=== PATIENT | female | born 1935 | race American Indian/Alaskan Native ===

== ENCOUNTER 2016-04-10 18:08 | Inpatient (IN) | payer MEDICARE, MEDICAID ==
[2016-04-10 18:09] VITALS: PULSE 75; BMI 44.2
--- NOTE | 2016-04-10 18:43 | C.PDOC ---
History Of Present Illness 80 y/o F from [place] sent for fever, tachycardia and increasing confusion. Patient denies pain, dyspnea, dysuria, or any other complaint. Time Seen by Provider: 04/10/16 18:41 Chief Complaint (Nursing): Fever Past Medical History Vital Signs: Last Vital Signs Temp 101.2 F H 04/10/16 18:40 Pulse 127 H 04/10/16 18:40 Resp 22 04/10/16 18:40 BP 126/68 04/10/16 18:40 Pulse Ox 99 04/10/16 18:40 - Medical History PMH: Arthritis, CHF, COPD, HTN, Pneumonia, Chronic Kidney Disease, Seizures ( LAST SEIZURE 2013) Denies: Depression Comment Only: Multiple Sclerosis (? in previous triage) Surgical History: Tonsillectomy - [facility] Procedures ASSISTANCE WITH RESPIRATORY VENTILATION, >96 HRS, CPAP (05/18/15) INJECT STEROID (12/22/13) INJECTION INTO JOINT (12/22/13) INSERTION OF ENDOTRACHEAL AIRWAY INTO TRACHEA, VIA OPENING (02/24/16) INTRODUCE OF OTH THERAP SUBST INTO RESP TRACT, VIA OPENING (05/18/15) MAGNETIC RESONANCE IMAGING OF BRAIN AND BRAIN STEM (09/29/13) OCCUPATIONAL THERAPY (10/05/13) PHYSICAL THERAPY NEC (10/05/13) RESPIRATORY VENTILATION, GREATER THAN 96 CONSECUTIVE HOURS (02/24/16) Family History: States: No Known Family Hx - Social History Hx Tobacco Use: No Hx Alcohol Use: No Hx Substance Use: No - Immunization History Hx Tetanus Toxoid Vaccination: No Hx Influenza Vaccination: No Hx Pneumococcal Vaccination: No Review Of Systems Except As Marked, All Systems Reviewed And Found Negative. Cardiovascular: Negative for: Chest Pain Respiratory: Negative for: Shortness of Breath Physical Exam - Physical Exam Additional Physical Exam Comments: Constitutional: No acute distress. Head: Normocephalic. Atraumatic. Eyes: PERRL. EOMI ENT: Moist mucous membranes. Neck: Supple. Cardiovascular: Tachycardic rate. Radial pulses 2+ bilaterally. Chest: No tenderness. Respiratory: Clear to auscultation bilaterally. GI: Soft. Nontender. Obese. Back: No CVA tenderness. No midline tenderness. Musculoskeletal: No tenderness or swelling of extremities. Skin: No rash. Neurologic: Alert, no focal deficit. Oriented x 3. ED Course And Treatment - Laboratory Results Result Diagrams: 04/10/16 19:04 04/10/16 19:04 Medical Decision Making Medical Decision Making: Will send sepsis screen. Will hold IVF as patient has normal BP and history of CHF. EKG Sinus tach at 129 bpm, no ST elevations or T wave inversions. CXR no infiltrate. Positive UTI on UA. Patient without lactic acidosis or leukocytosis. No severe sepsis. Dr. Mccarty accepts patient to medical service. Disposition Discussed With : Perla Mccarty - Disposition Disposition: HOSPITALIZED Disposition Time: 20:36 Condition: GUARDED - Clinical Impression Clinical Impression: UTI (urinary tract infection), Sepsis
[2016-04-10 19:11] LABS: VENOUS BLOOD GAS BASE EXCESS 7.9 mmol/L (0.0-2.0); VENOUS BLOOD GAS PCO2 65 mmHg (40-60); VENOUS BLOOD PH 7.35 (7.32-7.43)
[2016-04-10 19:16] LABS: INR 1.2
[2016-04-10 19:18] LABS: BASO % 0.3 % (0.0-2.0); EOS % 0.9 % (0.0-4.0); HEMATOCRIT 34.5 % (34.0-47.0); LYMPH # 0.3 K/uL (1.0-4.3); LYMPH % 8.3 % (20.0-40.0); MEAN CORPUSCULAR HEMOGLOBIN 25.4 pg (27.0-31.0); MEAN PLATELET VOLUME 9.2 fL (7.2-11.7); MONO # 0.2 K/uL (0.0-0.8); MONO % 5.7 % (0.0-10.0); NRBC % 0.1 % (0.0-2.0); RED CELL DISTRIBUTION WIDTH 18.5 % (11.5-14.5); WHITE BLOOD COUNT 3.9 K/uL (4.8-10.8)
[2016-04-10 19:20] LABS: MEAN CELL VOLUME 79.6 fL (81.0-99.0); PLATELET COUNT 103 K/uL (130-400)
[2016-04-10 19:22] LABS: CHLORIDE 100 mmol/L (98-107)
[2016-04-10 19:23] LABS: POTASSIUM 4.1 mmol/L (3.6-5.2); SODIUM 143 mmol/L (132-148)
[2016-04-10 19:25] LABS: ALB/GLOB RATIO 0.8 (1.0-2.1); ALKALINE PHOSPHATASE 122 U/L (38-126); AST/SGOT 33 U/L (14-36); BILIRUBIN,TOTAL 1.2 mg/dL (0.2-1.3); BLOOD UREA NITROGEN 20 mg/dL (7-17); CARBON DIOXIDE 35 mmol/L (22-30); GFR AFRICAN-AMERICAN 48
[2016-04-10 19:26] LABS: ALT/SGPT 18 U/L (9-52); CALCIUM 8.3 mg/dl (8.6-10.4); GLUCOSE,RANDOM 167 mg/dL (65-105); MAGNESIUM 1.8 mg/dL (1.6-2.3)
[2016-04-10 19:45] LABS: NEUTROPHIL 80 % (50-75); TOTAL CELLS COUNTED 100
[2016-04-10 19:48] LABS: LARGE PLATELETS PRESENT
[2016-04-10 20:32] LABS: RBC URINE 29 /hpf (0-3); TRANSITIONAL EPITHIAL 1 /hpf (0-3); URINE BACTERIA MANY (<OCC); URINE BILIRUBIN NEGATIVE (NEGATIVE); URINE BLOOD 2+ (NEGATIVE); URINE COLOR Yellow (YELLOW); URINE GLUCOSE (UA) NORMAL (Normal); URINE KETONE NEGATIVE (NEGATIVE); URINE LEUKOCYTE ESTERASE 3+ Leu/uL (Negative); URINE PROTEIN 2+ mg/dL (NEGATIVE); WBC URINE 129 /hpf (0-5)
[2016-04-10] MEDS ORDERED: cefTRIAXone IV 1 gm in Dextros 50 ML IVPB STA (20:35)
[2016-04-10] MEDS ORDERED: cefTRIAXone IV 1 gm in Dextros 50 ML IVPB ONE (20:54)
--- NOTE | 2016-04-10 22:16 | CP.PCM.HP ---
History of Present Illness - History of Present Illness History of Present Illness: pt transfered [place] for fever discomfort urination ams has uti Present on Admission - Present on Admission Any Indicators Present on Admission: No Review of Systems - Review of Systems Systems not reviewed;Unavailable: Acuity of Condition - Constitutional Constitutional: Anorexia, Daytime Sleepiness, Lethargy, Weakness - EENT Eyes: As Per HPI Ears: As Per HPI Nose/Mouth/Throat: As Per HPI - Breasts Breasts: As Per HPI - Cardiovascular Cardiovascular: As Per HPI - Respiratory Respiratory: As Per HPI - Gastrointestinal Gastrointestinal: As Per HPI - Genitourinary Genitourinary: Change in Urinary Stream, Difficulty Urinating, Urinary Frequency - Reproductive: Female Reproductive:Female: As Per HPI - Menstruation Menstruation: As Per HPI, Post Menopausal - Musculoskeletal Musculoskeletal: As Per HPI, Arthralgias - Integumentary Integumentary: As Per HPI - Neurological Neurological: Confusion, Memory Loss - Psychiatric Psychiatric: Depression - Endocrine Endocrine: Cold Intolorance Past Patient History - Infectious Disease Hx of Infectious Diseases: None - Tetanus Immunizations Tetanus Immunization: Unknown - Past Medical History & Family History Past Medical History?: Yes - Past Social History Smoking Status: Former Smoker - CARDIAC Hx Congestive Heart Failure: Yes Hx Hypertension: Yes - PULMONARY Hx Chronic Obstructive Pulmonary Disease (COPD): Yes Hx Pneumonia: Yes - NEUROLOGICAL Hx Multiple Sclerosis: (? in previous triage) Hx Seizures: Yes (LAST SEIZURE 2013) - HEENT Hx HEENT Problems: Yes (eyeglasses) Hx Cataracts: Yes (LEFT EYE) - RENAL Hx Chronic Kidney Disease: Yes - ENDOCRINE/METABOLIC Hx Endocrine Disorders: No - HEMATOLOGICAL/ONCOLOGICAL Hx Blood Disorders: No - INTEGUMENTARY Hx Dermatological Problems: Yes (HEALED SACRAL STAGE ONE DECUBITI) Other/Comment: healed sacral wound and healed right hip wound, right 5th toe darkened with hard callous - MUSCULOSKELETAL/RHEUMATOLOGICAL Hx Arthritis: Yes - GASTROINTESTINAL Hx Gastrointestinal Disorders: Yes (OBESITY) - GENITOURINARY/GYNECOLOGICAL Hx Genitourinary Disorders: Yes (HYSTERECTOMY) Hx Incontinence: Yes Hx Urinary Tract Infection: Yes - PSYCHIATRIC Hx Depression: No Hx Substance Use: No - SURGICAL HISTORY Hx Tonsillectomy: Yes - ANESTHESIA Hx Anesthesia: Yes Hx Anesthesia Reactions: No Meds Allergies/Adverse Reactions: Allergies Allergy/AdvReac Type Severity Reaction Status Date / Time No Known Allergies Allergy Verified 04/10/16 18:25 Physical Exam - Constitutional Appears: Non-toxic, Confused - Head Exam Head Exam: ATRAUMATIC - Eye Exam Eye Exam: Normal appearance Pupil Exam: PERRL - ENT Exam ENT Exam: Mucous Membranes Moist - Neck Exam Neck exam: Positive for: Full Rom - Respiratory Exam Respiratory Exam: Decreased Breath Sounds - Cardiovascular Exam Cardiovascular Exam: REGULAR RHYTHM - GI/Abdominal Exam GI & Abdominal Exam: Normal Bowel Sounds - Rectal Exam Rectal Exam: NORMAL INSPECTION - Extremities Exam Extremities exam: Positive for: normal inspection - Back Exam Back exam: NORMAL INSPECTION - Neurological Exam Neurological exam: Alert Additional comments: lethargic sleepy - Psychiatric Exam Psychiatric exam: Flat Affect - Skin Skin Exam: Normal Color Results - Vital Signs Recent Vital Signs: Last Vital Signs Temp 101.2 F H 04/10/16 18:40 Pulse 127 H 04/10/16 18:40 Resp 22 04/10/16 18:40 BP 126/68 04/10/16 18:40 Pulse Ox 99 04/10/16 18:40 - Labs Result Diagrams: 04/10/16 19:04 04/10/16 19:04 Assessment & Plan - Assessment and Plan (Free Text) Assessment: ac uti ams dm ms Plan: as per orders
[2016-04-10] MEDS ORDERED: Magnesium Hydroxide Susp 30 ml UD PO PRN (23:11)
[2016-04-10] MEDS ORDERED: ANTACID ANTI GAS PO PRN (23:11)
--- NOTE | 2016-04-11 08:15 | RAD ---
HISTORY: fever COMPARISON: 03/06/2016 FINDINGS: LUNGS: Worsening airspace opacifications throughout the left diane thorax with associated moderate to large left pleural effusion. Venous congestion in the right diane thorax with right hilar prominence. PLEURA: As above. CARDIOVASCULAR: Cardiomegaly. OSSEOUS STRUCTURES: No significant abnormalities. VISUALIZED UPPER ABDOMEN: Normal. OTHER FINDINGS: None. IMPRESSION: Worsening airspace opacifications throughout the left diane thorax with associated moderate to large left pleural effusion. Venous congestion in the right diane thorax with right hilar prominence.
[2016-04-11] MEDS ORDERED: Alum-Mag Hydrox-Simethicone Susp (30 mL) PO PRN (08:47)
[2016-04-11] MEDS: Pantoprazole 40 mg EC Tab PO SCH (09:57)
[2016-04-11] MEDS: Meropenem 1 GM in Sodium Chloride 0.9% 100 ML IVPB SCH ×2 (09:57→21:16)
[2016-04-11] MEDS: Enoxaparin 40 mg Syringe SC SCH (09:57)
[2016-04-11] MEDS ORDERED: cefTRIAXone IV 1 gm in Dextros 1 GM in Dextrose 5% In Water 50 ML IVPB SCH (10:00)
[2016-04-11] MEDS ORDERED: Albuterol-Ipratrop 3 mg / 0.5 (3 ml) UD IH SCH (10:00)
--- NOTE | 2016-04-11 10:59 | CP.PCM.PN ---
Subjective - Date & Time of Evaluation Date of Evaluation: 04/11/16 Time of Evaluation: 10:56 - Subjective Subjective: doesnot talk eating very litle deosnt move temp last night 103 vss lung cleare ht s1s2 abd soft tender l l no oeadeama Objective - Vital Signs/Intake and Output Vital Signs (last 24 hours): Temp Pulse Resp BP Pulse Ox 103.2 F H 147 H 20 120/67 95 04/11/16 06:50 04/11/16 06:50 04/11/16 06:50 04/11/16 09:57 04/11/16 06:50 Intake and Output: 04/11/16 04/11/16 06:59 18:59 Intake Total 600 Output Total 500 Balance 100 - Medications Medications: Current Medications Acetaminophen (Tylenol 650 Mg Supp) 650 mg NV Q4 PRN PRN Reason: Fever >100.4 F Last Admin: 04/11/16 05:43 Dose: 650 mg Acetaminophen (Tylenol 325mg Tab) 2 mg PO Q4 PRN PRN Reason: Temperature Al Hydrox/Mg Hydrox/Simethicone (Maalox Plus 30 Ml) 30 ml PO Q4H PRN PRN Reason: GI distress Albuterol/Ipratropium (Duoneb 3 Mg/0.5 Mg (3 Ml) Ud) 3 ml IH TID [facility] Ascorbic Acid (Vitamin C 500 Mg Tab) 500 mg PO DAILY [facility] Last Admin: 04/11/16 09:56 Dose: 500 mg Aspirin (Ecotrin) 81 mg PO DAILY [facility] Last Admin: 04/11/16 09:56 Dose: 81 mg Carvedilol (Coreg) 3.125 mg PO BID [facility] Last Admin: 04/11/16 09:56 Dose: 3.125 mg Enoxaparin Sodium (Lovenox) 40 mg SC DAILY [facility] Last Admin: 04/11/16 09:57 Dose: 40 mg Fluconazole (Diflucan) 100 mg PO DAILY [facility] Furosemide (Lasix) 40 mg PO MWF [facility] Last Admin: 04/11/16 09:57 Dose: 40 mg Vancomycin HCl 1 gm/ Sodium (Chloride) 250 mls @ 166.7 mls/hr IVPB Q24H [facility] Meropenem 1 gm/ Sodium (Chloride) 100 mls @ 100 mls/hr IVPB Q12H [facility] Last Admin: 04/11/16 09:57 Dose: 100 mls/hr Levetiracetam (Keppra) 500 mg PO BID [facility] Last Admin: 04/11/16 09:56 Dose: 500 mg Loperamide HCl (Imodium) 2 mg PO PRN PRN PRN Reason: Diarrhea Magnesium Hydroxide (Milk Of Magnesia) 30 ml PO HS PRN PRN Reason: Constipation Pantoprazole Sodium (Protonix Ec Tab) 40 mg PO DAILY [facility] Last Admin: 04/11/16 09:57 Dose: 40 mg Prochlorperazine (Compazine Rectal Supp) 25 mg RC Q12H PRN PRN Reason: Nausea/Vomiting - Labs Labs: PT 13.3 SECONDS (9.7-12.2) H 04/10/16 19:04 INR 1.2 04/10/16 19:04 APTT 27 SECONDS (21-34) 04/10/16 19:04 Assessment and Plan - Assessment and Plan (Free Text) Assessment: ac uti ac ams ms artifiscia mitral valve Plan: id and neuro consult
--- NOTE | 2016-04-11 13:17 | CT ---
PROCEDURE: CT HEAD WITHOUT CONTRAST. HISTORY: AMS COMPARISON: 02/27/2016 TECHNIQUE: Axial computed tomography images were obtained through the head/brain without intravenous contrast. Radiation dose: Total exam DLP = 637.99 mGy-cm. FINDINGS: HEMORRHAGE: No intracranial hemorrhage. BRAIN: No mass effect or edema. Mild diffuse age-appropriate cerebral atrophy. Mild chronic periventricular microvascular white matter ischemic change. No evidence of acute infarct. VENTRICLES: Unremarkable. No hydrocephalus. CALVARIUM: Unremarkable. PARANASAL SINUSES: Mild chronic frontal, sphenoid and left maxillary sinusitis. MASTOID AIR CELLS: Bilateral mastoid effusions. Right mastoid effusion is new since examination of 02/27/2016. Probable fluid within middle ear cavity bilaterally. Nonspecific. Congenitally underdeveloped right mastoid air cells. OTHER FINDINGS: None. IMPRESSION: No intracranial mass, hemorrhage or evidence of acute infarct. Age-appropriate involutional changes. Bilateral nonspecific mastoid effusion. Right mastoid effusion is new since 02/27/2016. Probable fluid within middle ear cavity bilaterally. Again, this is probably new on the right side since prior examination but a stable finding on the left side. Please correlate with exam.
--- NOTE | 2016-04-12 02:10 | CP.PCM.CON ---
History of Present Illness - History of Present Illness History of Present Illness: Chief Complaint: Fever, H/O Seizures and is on Keppra 500 mg Q 12 Hours. 80 y/o F from [place] sent for fever, tachycardia and increasing confusion. Patient denies pain, dyspnea, dysuria, or any other complaint. She has UTI and Slightly low Platelets count at 102. Past Medical History Vital Signs: Last Vital Signs Temp 101.2 F H 04/10/16 18:40 Pulse 127 H 04/10/16 18:40 Resp 22 04/10/16 18:40 BP 126/68 04/10/16 18:40 Pulse Ox 99 04/10/16 18:40 - Medical History PMH: Arthritis, CHF, COPD, HTN, Pneumonia, Chronic Kidney Disease, Seizures ( LAST SEIZURE 2013) Denies: Depression Comment Only: Multiple Sclerosis (? in previous triage) Surgical History: Tonsillectomy - [facility] Procedures ASSISTANCE WITH RESPIRATORY VENTILATION, >96 HRS, CPAP (05/18/15) INJECT STEROID (12/22/13) INJECTION INTO JOINT (12/22/13) INSERTION OF ENDOTRACHEAL AIRWAY INTO TRACHEA, VIA OPENING (02/24/16) INTRODUCE OF OTH THERAP SUBST INTO RESP TRACT, VIA OPENING (05/18/15) MAGNETIC RESONANCE IMAGING OF BRAIN AND BRAIN STEM (09/29/13) OCCUPATIONAL THERAPY (10/05/13) PHYSICAL THERAPY NEC (10/05/13) RESPIRATORY VENTILATION, GREATER THAN 96 CONSECUTIVE HOURS (02/24/16) Family History: States: No Known Family Hx - Social History Hx Tobacco Use: No Hx Alcohol Use: No Hx Substance Use: No - Immunization History Hx Tetanus Toxoid Vaccination: No Hx Influenza Vaccination: No Hx Pneumococcal Vaccination: No Review Of Systems Except As Marked, All Systems Reviewed And Found Negative. Cardiovascular: Negative for: Chest Pain Respiratory: Negative for: Shortness of Breath Medical Decision Making Medical Decision Making: Will send sepsis screen. Will hold IVF as patient has normal BP and history of CHF. EKG Sinus tach at 129 bpm, no ST elevations or T wave inversions. CXR no infiltrate. Positive UTI on UA. Patient without lactic acidosis or leukocytosis. No severe sepsis. Dr. Mccarty accepts patient to medical service. Clinical Impression: UTI (urinary tract infection), Sepsis IMPRESSION of CT Brain: No intracranial mass, hemorrhage or evidence of acute infarct. Age-appropriate involutional changes. Bilateral nonspecific mastoid effusion. Right mastoid effusion is new since 02/27/2016. Probable fluid within middle ear cavity bilaterally. Again, this is probably new on the right side since prior examination but a stable finding on the left side. Please correlate with exam. Past Patient History - Infectious Disease Hx of Infectious Diseases: None - Tetanus Immunizations Tetanus Immunization: Unknown - Past Medical History & Family History Past Medical History?: Yes - Past Social History Smoking Status: Never Smoked - CARDIAC Hx Cardiac Disorders: Yes Hx Congestive Heart Failure: Yes Hx Hypertension: Yes - PULMONARY Hx Chronic Obstructive Pulmonary Disease (COPD): Yes - NEUROLOGICAL Hx Multiple Sclerosis: (? in previous triage) Hx Seizures: Yes (LAST SEIZURE 2013) - HEENT Hx HEENT Problems: Yes (eyeglasses) Hx Cataracts: Yes (LEFT EYE) - RENAL Hx Chronic Kidney Disease: Yes - ENDOCRINE/METABOLIC Hx Endocrine Disorders: No - HEMATOLOGICAL/ONCOLOGICAL Hx Blood Disorders: No - INTEGUMENTARY Hx Dermatological Problems: Yes (HEALED SACRAL STAGE ONE DECUBITI) Other/Comment: healed sacral wound and healed right hip wound, right 5th toe darkened with hard callous - MUSCULOSKELETAL/RHEUMATOLOGICAL Hx Arthritis: Yes - GASTROINTESTINAL Hx Gastrointestinal Disorders: Yes (OBESITY) - GENITOURINARY/GYNECOLOGICAL Hx Genitourinary Disorders: Yes (HYSTERECTOMY) Hx Incontinence: Yes Hx Urinary Tract Infection: Yes - PSYCHIATRIC Hx Substance Use: No - SURGICAL HISTORY Hx Tonsillectomy: Yes - ANESTHESIA Hx Anesthesia: Yes Hx Anesthesia Reactions: No Hx Malignant Hyperthermia: No Has any member of the family had a problem w/ anesthesia?: Yes Meds Allergies/Adverse Reactions: Allergies Allergy/AdvReac Type Severity Reaction Status Date / Time No Known Allergies Allergy Verified 04/10/16 18:25 - Medications Medications: Current Medications Acetaminophen (Tylenol 650 Mg Supp) 650 mg ID Q4 PRN PRN Reason: Fever >100.4 F Last Admin: 04/11/16 05:43 Dose: 650 mg Acetaminophen (Tylenol 325mg Tab) 2 mg PO Q4 PRN PRN Reason: Temperature Al Hydrox/Mg Hydrox/Simethicone (Maalox Plus 30 Ml) 30 ml PO Q4H PRN PRN Reason: GI distress Albuterol/Ipratropium (Duoneb 3 Mg/0.5 Mg (3 Ml) Ud) 3 ml IH RTID [facility] Ascorbic Acid (Vitamin C 500 Mg Tab) 500 mg PO DAILY [facility] Last Admin: 04/11/16 09:56 Dose: 500 mg Aspirin (Ecotrin) 81 mg PO DAILY [facility] Last Admin: 04/11/16 09:56 Dose: 81 mg Carvedilol (Coreg) 3.125 mg PO BID [facility] Last Admin: 04/11/16 18:25 Dose: 3.125 mg Enoxaparin Sodium (Lovenox) 40 mg SC DAILY [facility] Last Admin: 04/11/16 09:57 Dose: 40 mg Fluconazole (Diflucan) 100 mg PO DAILY [facility] Last Admin: 04/11/16 10:19 Dose: 100 mg Furosemide (Lasix) 40 mg PO MWF [facility] Last Admin: 04/11/16 09:57 Dose: 40 mg Vancomycin HCl 1 gm/ Sodium (Chloride) 250 mls @ 166.7 mls/hr IVPB Q24H [facility] Last Admin: 04/11/16 11:24 Dose: 166.7 mls/hr Meropenem 1 gm/ Sodium (Chloride) 100 mls @ 100 mls/hr IVPB Q12H [facility] Last Admin: 04/11/16 21:16 Dose: 100 mls/hr Levetiracetam (Keppra) 500 mg PO BID [facility] Last Admin: 04/11/16 18:26 Dose: 500 mg Loperamide HCl (Imodium) 2 mg PO PRN PRN PRN Reason: Diarrhea Magnesium Hydroxide (Milk Of Magnesia) 30 ml PO HS PRN PRN Reason: Constipation Pantoprazole Sodium (Protonix Ec Tab) 40 mg PO DAILY [facility] Last Admin: 04/11/16 09:57 Dose: 40 mg Prochlorperazine (Compazine Rectal Supp) 25 mg RC Q12H PRN PRN Reason: Nausea/Vomiting Physical Exam - Neurological Exam Additional comments: Physical Exam: Remarkable Obesity Mental Status: Awake, alert oriented to persons, place, disoriented to time or year. Fluent non Coherent Speech, Hard of Hearing Demented. Cranial Nerves II to XII: Pupils are equal, EOM are normal, no facial asymmetry, central Tongue, Normal swallowing Can't shrug her shoulders appropriately. Motor: Tone of the LEs is Flaccid Tone of UEs is Normal Power: Very weak LEs suggesting flaccid paraplegia, she said the last time she was able to stand was 2 years ago. UEs power is symmetrically equal and is 4 + to 5 - /5 DTR are 0/4 Toes are equivocal by plantar stimulation. Sensory: Intact Pain Cerebellar: Unable to assess due to lack of cooperation and HAH Stature and Gait: She is unable since 2 Years. Results - Vital Signs Recent Vital Signs: Last Vital Signs Temp 99 F 04/12/16 00:00 Pulse 97 H 04/12/16 00:00 Resp 19 04/12/16 00:00 BP 122/68 04/12/16 00:00 Pulse Ox 97 04/12/16 00:00 - Labs Result Diagrams: 04/10/16 19:04 04/10/16 19:04 Assessment & Plan (1) Pneumonia Status: Acute (2) Sacral decubitus ulcer Status: Acute (3) UTI (urinary tract infection) Assessment and Plan: Gram Negative Rods 100,000 on Antibiotics. 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 Generalized weakness. Get Old Records. Status: Chronic
[2016-04-12 06:38] LABS: BASO % 0.3 % (0.0-2.0); CHLORIDE 101 mmol/L (98-107); EOS # 0.2 K/uL (0.0-0.7); HEMATOCRIT 27.4 % (34.0-47.0); LYMPH # 0.8 K/uL (1.0-4.3); LYMPH % 12.9 % (20.0-40.0); MEAN CORPUSCULAR HEMOGLOBIN 25.8 pg (27.0-31.0); MEAN CORPUSCULAR HGB CONC 33.1 g/dL (33.0-37.0); MEAN PLATELET VOLUME 9.8 fL (7.2-11.7); MONO # 0.7 K/uL (0.0-0.8); RED CELL DISTRIBUTION WIDTH 18.5 % (11.5-14.5)
[2016-04-12 06:39] LABS: POTASSIUM 3.6 mmol/L (3.6-5.2); SODIUM 150 mmol/L (132-148)
[2016-04-12 06:40] LABS: CHOLESTEROL 133 mg/dL (0-199); WHITE BLOOD COUNT 5.9 K/uL (4.8-10.8)
[2016-04-12 06:41] LABS: ALB/GLOB RATIO 0.6 (1.0-2.1); ALKALINE PHOSPHATASE 82 U/L (38-126); ALT/SGPT 21 U/L (9-52); AST/SGOT 27 U/L (14-36); BILIRUBIN,TOTAL 0.7 mg/dL (0.2-1.3); BLOOD UREA NITROGEN 24 mg/dL (7-17); CARBON DIOXIDE 36 mmol/L (22-30); GFR AFRICAN-AMERICAN 38; GLUCOSE,RANDOM 88 mg/dL (65-105); TOTAL PROTEIN 6.9 g/dL (6.3-8.3); URIC ACID 6.3 mg/dL (2.2-7.5)
[2016-04-12 06:42] LABS: CALCIUM 7.6 mg/dl (8.6-10.4)
[2016-04-12 07:02] LABS: THYROID STIMULATING HORMONE 2.33 mIU/L (0.46-4.68)
[2016-04-12] MEDS: Albuterol-Ipratrop 3 mg / 0.5 (3 ml) UD IH SCH ×3 (08:55→19:00)
[2016-04-12] MEDS: Pantoprazole 40 mg EC Tab PO SCH (10:11)
[2016-04-12] MEDS: Meropenem 1 GM in Sodium Chloride 0.9% 100 ML IVPB SCH (10:11)
[2016-04-12] MEDS: Enoxaparin 40 mg Syringe SC SCH (10:11)
--- NOTE | 2016-04-12 12:16 | CP.PCM.PN ---
Subjective - Date & Time of Evaluation Date of Evaluation: 04/12/16 Time of Evaluation: 12:14 - Subjective Subjective: pt sleepy lethargic doesot answer Objective - Vital Signs/Intake and Output Vital Signs (last 24 hours): Temp Pulse Resp BP Pulse Ox 98.0 F 95 H 20 136/70 98 04/12/16 07:59 04/12/16 08:00 04/12/16 07:59 04/12/16 07:59 04/12/16 07:59 Intake and Output: 04/12/16 04/12/16 06:59 18:59 Intake Total 340 Output Total 800 Balance -460 - Medications Medications: Current Medications Acetaminophen (Tylenol 650 Mg Supp) 650 mg [place] Q4 PRN PRN Reason: Fever >100.4 F Last Admin: 04/11/16 05:43 Dose: 650 mg Acetaminophen (Tylenol 325mg Tab) 2 mg PO Q4 PRN PRN Reason: Temperature Al Hydrox/Mg Hydrox/Simethicone (Maalox Plus 30 Ml) 30 ml PO Q4H PRN PRN Reason: GI distress Albuterol/Ipratropium (Duoneb 3 Mg/0.5 Mg (3 Ml) Ud) 3 ml IH RTID [facility] Ascorbic Acid (Vitamin C 500 Mg Tab) 500 mg PO DAILY [facility] Last Admin: 04/12/16 10:11 Dose: 500 mg Aspirin (Ecotrin) 81 mg PO DAILY [facility] Last Admin: 04/12/16 10:22 Dose: 81 mg Carvedilol (Coreg) 3.125 mg PO BID [facility] Last Admin: 04/12/16 10:11 Dose: 3.125 mg Enoxaparin Sodium (Lovenox) 40 mg SC DAILY [facility] Last Admin: 04/12/16 10:11 Dose: 40 mg Fluconazole (Diflucan) 100 mg PO DAILY [facility] Last Admin: 04/12/16 10:11 Dose: 100 mg Furosemide (Lasix) 40 mg PO MWF [facility] Last Admin: 04/11/16 09:57 Dose: 40 mg Vancomycin HCl 1 gm/ Sodium (Chloride) 250 mls @ 166.7 mls/hr IVPB Q24H [facility] Last Admin: 04/12/16 12:07 Dose: 166.7 mls/hr Meropenem 1 gm/ Sodium (Chloride) 100 mls @ 100 mls/hr IVPB Q12H [facility] Last Admin: 04/12/16 10:11 Dose: 100 mls/hr Levetiracetam (Keppra) 500 mg PO BID [facility] Last Admin: 04/12/16 10:11 Dose: 500 mg Loperamide HCl (Imodium) 2 mg PO PRN PRN PRN Reason: Diarrhea Magnesium Hydroxide (Milk Of Magnesia) 30 ml PO HS PRN PRN Reason: Constipation Pantoprazole Sodium (Protonix Ec Tab) 40 mg PO DAILY [facility] Last Admin: 04/12/16 10:11 Dose: 40 mg Prochlorperazine (Compazine Rectal Supp) 25 mg RC Q12H PRN PRN Reason: Nausea/Vomiting - Labs Labs: 04/12/16 06:06 04/12/16 06:06 PT 13.3 SECONDS (9.7-12.2) H 04/10/16 19:04 INR 1.2 04/10/16 19:04 APTT 27 SECONDS (21-34) 04/10/16 19:04 - Constitutional Appears: Chronically Ill - Head Exam Head Exam: ATRAUMATIC Additional comments: twisted to one side - ENT Exam ENT Exam: Mucous Membranes Dry - Respiratory Exam Respiratory Exam: NORMAL BREATHING PATTERN - Cardiovascular Exam Cardiovascular Exam: REGULAR RHYTHM - GI/Abdominal Exam GI & Abdominal Exam: Normal Bowel Sounds - Extremities Exam Extremities Exam: Normal Inspection - Back Exam Back Exam: NORMAL INSPECTION - Neurological Exam Neurological Exam: Altered - Skin Skin Exam: Dry Assessment and Plan - Assessment and Plan (Free Text) Assessment: hyper natreamia renal insufsciny Plan: as per orders
--- NOTE | 2016-04-12 14:44 | CP.PCM.CON ---
History of Present Illness - History of Present Illness History of Present Illness: 80 yo F w/ pmh of htn that came in w/ altered mental status and fevers. She was found to have UTI and started on abx. She has developed hypernatremia while in hospital - has not been on any IVF. She is being fed by nursing staff. She is otherwise unable to give me any futher history. She has good urine outpt. ROS: a full detailed ROS is limited as pt not able to answer questions appropriatly PMH: chf, afib, obesity .osteroarthritis, seizure d/o meds: reviewed all: nkda famhx: unable to gather from pt - as she is not answering quetsions appropriately sochx: unable to gather from pt as not answering quetsions appropriately Past Patient History - Infectious Disease Hx of Infectious Diseases: None - Tetanus Immunizations Tetanus Immunization: Unknown - Past Medical History & Family History Past Medical History?: Yes - Past Social History Smoking Status: Never Smoked - CARDIAC Hx Cardiac Disorders: Yes Hx Congestive Heart Failure: Yes Hx Hypertension: Yes - PULMONARY Hx Chronic Obstructive Pulmonary Disease (COPD): Yes - NEUROLOGICAL Hx Multiple Sclerosis: (? in previous triage) Hx Seizures: Yes (LAST SEIZURE 2013) - HEENT Hx HEENT Problems: Yes (eyeglasses) Hx Cataracts: Yes (LEFT EYE) - RENAL Hx Chronic Kidney Disease: Yes - ENDOCRINE/METABOLIC Hx Endocrine Disorders: No - HEMATOLOGICAL/ONCOLOGICAL Hx Blood Disorders: No - INTEGUMENTARY Hx Dermatological Problems: Yes (HEALED SACRAL STAGE ONE DECUBITI) Other/Comment: healed sacral wound and healed right hip wound, right 5th toe darkened with hard callous - MUSCULOSKELETAL/RHEUMATOLOGICAL Hx Arthritis: Yes - GASTROINTESTINAL Hx Gastrointestinal Disorders: Yes (OBESITY) - GENITOURINARY/GYNECOLOGICAL Hx Genitourinary Disorders: Yes (HYSTERECTOMY) Hx Incontinence: Yes Hx Urinary Tract Infection: Yes - PSYCHIATRIC Hx Substance Use: No - SURGICAL HISTORY Hx Tonsillectomy: Yes - ANESTHESIA Hx Anesthesia: Yes Hx Anesthesia Reactions: No Hx Malignant Hyperthermia: No Has any member of the family had a problem w/ anesthesia?: Yes Meds Allergies/Adverse Reactions: Allergies Allergy/AdvReac Type Severity Reaction Status Date / Time No Known Allergies Allergy Verified 04/10/16 18:25 - Medications Medications: Current Medications Acetaminophen (Tylenol 650 Mg Supp) 650 mg [place] Q4 PRN PRN Reason: Fever >100.4 F Last Admin: 04/11/16 05:43 Dose: 650 mg Acetaminophen (Tylenol 325mg Tab) 650 mg PO Q4 PRN PRN Reason: Temperature > 100.4 Al Hydrox/Mg Hydrox/Simethicone (Maalox Plus 30 Ml) 30 ml PO Q4H PRN PRN Reason: GI distress Albuterol/Ipratropium (Duoneb 3 Mg/0.5 Mg (3 Ml) Ud) 3 ml IH RTID [facility] Last Admin: 04/12/16 08:55 Dose: 3 ml Ascorbic Acid (Vitamin C 500 Mg Tab) 500 mg PO DAILY [facility] Last Admin: 04/12/16 10:11 Dose: 500 mg Aspirin (Ecotrin) 81 mg PO DAILY [facility] Last Admin: 04/12/16 10:22 Dose: 81 mg Carvedilol (Coreg) 3.125 mg PO BID [facility] Last Admin: 04/12/16 10:11 Dose: 3.125 mg Enoxaparin Sodium (Lovenox) 40 mg SC DAILY [facility] Last Admin: 04/12/16 10:11 Dose: 40 mg Fluconazole (Diflucan) 100 mg PO DAILY [facility] Last Admin: 04/12/16 10:11 Dose: 100 mg Furosemide (Lasix) 40 mg PO MWF [facility] Last Admin: 04/11/16 09:57 Dose: 40 mg Cefepime HCl (Maxipime Iv 1 Gm Premix) 50 mls @ 100 mls/hr IVPB Q12H [facility] Levetiracetam (Keppra) 500 mg PO BID [facility] Last Admin: 04/12/16 10:11 Dose: 500 mg Loperamide HCl (Imodium) 2 mg PO TID PRN PRN Reason: DIARRHEA Magnesium Hydroxide (Milk Of Magnesia) 30 ml PO HS PRN PRN Reason: Constipation Pantoprazole Sodium (Protonix Ec Tab) 40 mg PO DAILY [facility] Last Admin: 04/12/16 10:11 Dose: 40 mg Prochlorperazine (Compazine Rectal Supp) 25 mg RC Q12H PRN PRN Reason: Nausea/Vomiting Physical Exam - Constitutional Appears: Non-toxic - Head Exam Head Exam: ATRAUMATIC - Eye Exam Eye Exam: Normal appearance - ENT Exam Additional comments: dry op - Neck Exam Neck exam: Positive for: Normal Inspection - Respiratory Exam Respiratory Exam: NORMAL BREATHING PATTERN - Cardiovascular Exam Cardiovascular Exam: +S1, +S2 - GI/Abdominal Exam GI & Abdominal Exam: Normal Bowel Sounds - Extremities Exam Extremities exam: Positive for: normal inspection - Neurological Exam Additional comments: follows commands but not answering questions appropriately - Psychiatric Exam Psychiatric exam: Flat Affect - Skin Skin Exam: Normal Color Results - Vital Signs Recent Vital Signs: Last Vital Signs Temp 98.0 F 04/12/16 07:59 Pulse 95 H 04/12/16 08:55 Resp 20 04/12/16 07:59 BP 136/70 04/12/16 07:59 Pulse Ox 98 04/12/16 07:59 - Labs Result Diagrams: 04/12/16 06:06 04/12/16 06:06 Labs: Laboratory Results - last 24 hr 04/12/16 06:06 WBC 5.9 D RBC 3.51 L Hgb 9.1 L Hct 27.4 L MCV 78.0 L MCH 25.8 L MCHC 33.1 RDW 18.5 H Plt Count 90 L MPV 9.8 Neut % (Auto) 70.8 Lymph % (Auto) 12.9 L [place] % (Auto) 12.0 H Eos % (Auto) 4.0 Baso % (Auto) 0.3 Neut # 4.1 Lymph # 0.8 L [place] # 0.7 Eos # 0.2 Baso # 0.0 ESR 80 H Sodium 150 H Potassium 3.6 Chloride 101 Carbon Dioxide 36 H Anion Gap 17 BUN 24 H Creatinine 1.6 H Est GFR ( Amer) 38 Est GFR (Non-Af Amer) 31 Random Glucose 88 Hemoglobin A1c 5.1 Uric Acid 6.3 Calcium 7.6 L Total Bilirubin 0.7 AST 27 ALT 21 Alkaline Phosphatase 82 Total Creatine Kinase < 20 L C-React Prot High Sens > 15.00 H Total Protein 6.9 Albumin 2.6 L D Globulin 4.3 H Albumin/Globulin Ratio 0.6 L Triglycerides 105 Cholesterol 133 LDL Cholesterol Direct 54 HDL Cholesterol 28 L Vitamin B12 290 25-OH Vitamin D Total 14.1 L TSH 3rd Generation 2.33 Assessment & Plan - Assessment and Plan (Free Text) Assessment: ARF/ UTI/ Hypernatremia / Altered mental status / anemia plan: JERRY -suspet 2/2 to hypovolemia. Will start 1/2 ns for volume as well as for hypernatremia. Unusual organism growing in urine - would consider ID consult. will d/c lasix as she appears dry continue to follow cbc
--- NOTE | 2016-04-12 15:19 | PN ---
DATE: 04/12/2016 SUBJECTIVE: She is very drowsy, but she is moving a lot and is more responsive I would think. PHYSICAL EXAMINATION: VITAL SIGNS: Temperature is 98, pulse is 95, T-max has been 103.2 yesterday, now it is 98.8, pulse 9 6, blood pressure 114/68, respirations are 20. HEENT: Head is atraumatic, normocephalic, keeps it twisted to the left. NECK: Supple. LUNGS: Clear. Decreased breath sounds bilaterally. HEART: S1, S2 regular, tachy. ABDOMEN: Flabby, nontender, no guarding, no rigidity present. EXTREMITIES: Have trace edema. LABORATORY DATA: White count is 5.9, hemoglobin 9.1, hematocrit 27.4, platelet count is 90, is dropp ing. Sodium is 150, potassium 3.6, chloride 101, CO2 is 36, anion gap is 17, and creatinine is 1.6 MEDICATIONS: She is on Diflucan, meropenem and vancomycin. Her blood cultures are negative. Her urine culture has Provid[place], which is sensitive to cefepime a nd since the platelets are dropping, which may be due to meropenem and creatinine is 1.6, I would put her on Maxipime and also discontinue the vancomycin. The chest x-ray was worsening airspace throughout the left with associated moderate to large left pleural effusion, venous congesti on, right hemithorax with right hilar prominence. She is also on Lovenox, need to monitor the platel ets. We switched the medicine to Maxipime, and plan to discontinue the vancomycin and repeat the lab s. IMPRESSION: She came in with altered mental status, as lethargy and has cardiac history urinary trac t infection and morbid obesity. At this time, we will continue with cefepime to which it is sensitiv e. Also, since she has Providencia, she is going to be seen by renal for hypernatremia. Her proBNP also was 1600. John Richardson MD cc: [id number] TT: 04/12/2016 15:18:36 Confirmation # [id number] Dictation # [id number]
[2016-04-12] MEDS ORDERED: Cefepime IV 1 gm in Dextrose 50 ML IVPB SCH (16:00)
[2016-04-12] MEDS: Sodium Chloride 0.45% 1,000 ML IV SCH (17:06)
[2016-04-13] MEDS: Meropenem 1 GM in Sodium Chloride 0.9% 100 ML IVPB SCH ×3 (00:50→20:57)
[2016-04-13 07:10] LABS: BASO % 0.4 % (0.0-2.0); EOS # 0.2 K/uL (0.0-0.7); EOS % 3.4 % (0.0-4.0); HEMATOCRIT 27.4 % (34.0-47.0); LYMPH # 0.6 K/uL (1.0-4.3); LYMPH % 11.3 % (20.0-40.0); MEAN CELL VOLUME 77.7 fL (81.0-99.0); MEAN CORPUSCULAR HEMOGLOBIN 25.5 pg (27.0-31.0); MEAN CORPUSCULAR HGB CONC 32.9 g/dL (33.0-37.0); MEAN PLATELET VOLUME 9.8 fL (7.2-11.7); MONO # 0.6 K/uL (0.0-0.8); MONO % 11.1 % (0.0-10.0); RED CELL DISTRIBUTION WIDTH 18.3 % (11.5-14.5); WHITE BLOOD COUNT 5.4 K/uL (4.8-10.8)
[2016-04-13 07:30] LABS: POTASSIUM 3.8 mmol/L (3.6-5.2)
[2016-04-13 07:32] LABS: ALB/GLOB RATIO 0.7 (1.0-2.1); BILIRUBIN,TOTAL 0.7 mg/dL (0.2-1.3); TOTAL PROTEIN 6.7 g/dL (6.3-8.3)
[2016-04-13 07:33] LABS: CALCIUM 7.1 mg/dl (8.6-10.4)
[2016-04-13] MEDS: Albuterol-Ipratrop 3 mg / 0.5 (3 ml) UD IH SCH ×3 (07:59→20:35)
[2016-04-13] MEDS: Pantoprazole 40 mg EC Tab PO SCH (09:47)
[2016-04-13] MEDS: Enoxaparin 40 mg Syringe SC SCH (09:47)
--- NOTE | 2016-04-13 12:36 | CP.PCM.PN ---
Subjective - Date & Time of Evaluation Date of Evaluation: 04/13/16 Time of Evaluation: 12:33 - Subjective Subjective: pt in bed tolerating diet sleepy most of the time afebriel no distress vss l Objective - Vital Signs/Intake and Output Vital Signs (last 24 hours): Temp Pulse Resp BP Pulse Ox 98.7 F 100 H 18 111/64 99 04/13/16 08:40 04/13/16 08:40 04/13/16 08:40 04/13/16 08:40 04/13/16 08:40 Intake and Output: 04/13/16 04/13/16 06:59 18:59 Intake Total 945 Output Total 800 Balance 145 - Medications Medications: Current Medications Acetaminophen (Tylenol 650 Mg Supp) 650 mg [place] Q4 PRN PRN Reason: Fever >100.4 F Last Admin: 04/12/16 22:25 Dose: 650 mg Acetaminophen (Tylenol 325mg Tab) 650 mg PO Q4 PRN PRN Reason: Temperature > 100.4 Al Hydrox/Mg Hydrox/Simethicone (Maalox Plus 30 Ml) 30 ml PO Q4H PRN PRN Reason: GI distress Albuterol/Ipratropium (Duoneb 3 Mg/0.5 Mg (3 Ml) Ud) 3 ml IH RTID [facility] Last Admin: 04/13/16 07:59 Dose: 3 ml Ascorbic Acid (Vitamin C 500 Mg Tab) 500 mg PO DAILY [facility] Last Admin: 04/13/16 09:47 Dose: 500 mg Aspirin (Ecotrin) 81 mg PO DAILY [facility] Last Admin: 04/13/16 09:47 Dose: 81 mg Carvedilol (Coreg) 3.125 mg PO BID [facility] Last Admin: 04/13/16 09:48 Dose: 3.125 mg Enoxaparin Sodium (Lovenox) 40 mg SC DAILY [facility] Last Admin: 04/13/16 09:47 Dose: 40 mg Sodium Chloride (Sodium Chloride 0.45%) 1,000 mls @ 75 mls/hr IV .[id number] [facility] Last Admin: 04/12/16 17:06 Dose: 75 mls/hr Meropenem 1 gm/ Sodium (Chloride) 100 mls @ 100 mls/hr IVPB RQ12 [facility] Last Admin: 04/13/16 09:46 Dose: 100 mls/hr Ciprofloxacin (Cipro 400mg/200ml Dsw) 200 mls @ 133 mls/hr IVPB Q12H [facility] Levetiracetam (Keppra) 500 mg PO BID [facility] Last Admin: 04/13/16 09:48 Dose: 500 mg Loperamide HCl (Imodium) 2 mg PO TID PRN PRN Reason: DIARRHEA Magnesium Hydroxide (Milk Of Magnesia) 30 ml PO HS PRN PRN Reason: Constipation Pantoprazole Sodium (Protonix Ec Tab) 40 mg PO DAILY [facility] Last Admin: 04/13/16 09:47 Dose: 40 mg Prochlorperazine (Compazine Rectal Supp) 25 mg RC Q12H PRN PRN Reason: Nausea/Vomiting - Labs Labs: 04/13/16 07:02 04/13/16 07:02 PT 13.3 SECONDS (9.7-12.2) H 04/10/16 19:04 INR 1.2 04/10/16 19:04 APTT 27 SECONDS (21-34) 04/10/16 19:04 - Constitutional Appears: Non-toxic - Head Exam Head Exam: NORMAL INSPECTION - ENT Exam ENT Exam: Normal Exam - Neck Exam Additional comments: has l side position her head - Respiratory Exam Respiratory Exam: Decreased Breath Sounds - Cardiovascular Exam Cardiovascular Exam: REGULAR RHYTHM - GI/Abdominal Exam GI & Abdominal Exam: Normal Bowel Sounds - Extremities Exam Extremities Exam: Normal Inspection - Back Exam Back Exam: NORMAL INSPECTION - Neurological Exam Neurological Exam: Alert, Awake Additional comments: hemiparesis - Psychiatric Exam Psychiatric exam: Normal Affect - Skin Skin Exam: Pallor Assessment and Plan - Assessment and Plan (Free Text) Assessment: ams aneamia uti hx seizer ms confined tobed urin culture sensitive to cipro will prder
[2016-04-13] MEDS ORDERED: Ciprofloxacin 400mg/200ml D5W 200 ML IVPB SCH (12:45)
[2016-04-13] MEDS: Sodium Chloride 0.45% 1,000 ML IV SCH ×2 (14:38→17:00)
[2016-04-13] MEDS: Aztreonam 1 GM in Sodium Chloride 0.9% 100 ML IVPB SCH ×2 (14:38→21:25)
--- NOTE | 2016-04-13 22:49 | CP.PCM.PN ---
Subjective - Date & Time of Evaluation Date of Evaluation: 04/13/16 Time of Evaluation: 19:00 - Subjective Subjective: Hypernatremia has improved. She has no difficulty eating and the nurses are feeding her, may be due Weakness or Apraxia. EEG and Carotid Doppler are to be performed in AM. She is awake, alert, Oriented X 2 but disoriented to time. Keppra is at a low dose. Objective - Vital Signs/Intake and Output Vital Signs (last 24 hours): Temp Pulse Resp BP Pulse Ox 99.5 F 92 H 20 115/72 98 04/13/16 15:59 04/13/16 16:00 04/13/16 15:59 04/13/16 15:59 04/13/16 15:59 Intake and Output: 04/13/16 04/14/16 18:59 06:59 Intake Total 780 Output Total 400 Balance 380 - Medications Medications: Current Medications Acetaminophen (Tylenol 650 Mg Supp) [address] Q4 PRN PRN Reason: Fever >100.4 F Last Admin: 04/12/16 22:25 Dose: 650 mg Acetaminophen (Tylenol 325mg Tab) 650 mg PO Q4 PRN PRN Reason: Temperature > 100.4 Al Hydrox/Mg Hydrox/Simethicone (Maalox Plus 30 Ml) 30 ml PO Q4H PRN PRN Reason: GI distress Albuterol/Ipratropium (Duoneb 3 Mg/0.5 Mg (3 Ml) Ud) 3 ml IH RTID [facility] Last Admin: 04/13/16 20:35 Dose: 3 ml Ascorbic Acid (Vitamin C 500 Mg Tab) 500 mg PO DAILY [facility] Last Admin: 04/13/16 09:47 Dose: 500 mg Aspirin (Ecotrin) 81 mg PO DAILY [facility] Last Admin: 04/13/16 09:47 Dose: 81 mg Carvedilol (Coreg) 3.125 mg PO BID [facility] Last Admin: 04/13/16 17:46 Dose: 3.125 mg Enoxaparin Sodium (Lovenox) 40 mg SC DAILY [facility] Last Admin: 04/13/16 09:47 Dose: 40 mg Sodium Chloride (Sodium Chloride 0.45%) 1,000 mls @ 75 mls/hr IV .[id number] [facility] Last Admin: 04/13/16 17:00 Dose: Not Given Meropenem 1 gm/ Sodium (Chloride) 100 mls @ 100 mls/hr IVPB RQ12 [facility] Last Admin: 04/13/16 20:57 Dose: 100 mls/hr Aztreonam 1 gm/ Sodium (Chloride) 100 mls @ 200 mls/hr IVPB Q8H [facility] Last Admin: 04/13/16 21:25 Dose: 200 mls/hr Levetiracetam (Keppra) 500 mg PO BID [facility] Last Admin: 04/13/16 17:46 Dose: 500 mg Loperamide HCl (Imodium) 2 mg PO TID PRN PRN Reason: DIARRHEA Magnesium Hydroxide (Milk Of Magnesia) 30 ml PO HS PRN PRN Reason: Constipation Pantoprazole Sodium (Protonix Ec Tab) 40 mg PO DAILY [facility] Last Admin: 04/13/16 09:47 Dose: 40 mg Prochlorperazine (Compazine Rectal Supp) 25 mg RC Q12H PRN PRN Reason: Nausea/Vomiting - Labs Labs: 04/13/16 07:02 04/13/16 07:02 PT 13.3 SECONDS (9.7-12.2) H 04/10/16 19:04 INR 1.2 04/10/16 19:04 APTT 27 SECONDS (21-34) 04/10/16 19:04 Assessment and Plan (1) Pneumonia Status: Acute (2) Sacral decubitus ulcer Status: Acute (3) UTI (urinary tract infection) Status: Acute (4) Seizures Status: Chronic (5) [place] (hard of hearing) Status: Chronic (6) Paraplegia Status: Chronic
[2016-04-14] MEDS: Aztreonam 1 GM in Sodium Chloride 0.9% 100 ML IVPB SCH ×3 (06:55→22:25)
[2016-04-14] MEDS: Albuterol-Ipratrop 3 mg / 0.5 (3 ml) UD IH SCH ×3 (07:28→21:10)
--- NOTE | 2016-04-14 08:13 | CON ---
DATE: 04/11/2016 This consult was requested from Dr. Bauman, and I am covering him. The patient is a 80-year-old female. She comes from a skilled nursing. She was transferred because _of high fever and altered mental status with sepsis____; also she was tachycardic, and she had altered mental status, and was brought in here. We were called for infectious disease consult. The patient remains confused. She is not able to give any history. Most of the history is taken from the chart. She had a fever of 101.2 in the ER. PAST MEDICAL HISTORY: Significant for COPD, CHF, hypertension, history of pneumonia, chronic kidney disease, and there is some documentation of multiple myeloma in the ER, but she has _aspiration____ pneumonia, is bedridden, has a history of CVAs, osteoarthritis of the knee. 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 There is history of heart failure. She is not allergic to any medicine. MEDICATIONS: In the skilled nursing she was getting were Keppra. She was on 40 mg p.o. prilosec , Keppra 500 b.i.d.. She was on loperamide 2 tabs p.o. p.r.n. She was also on 30 mL p.o. at bedtime p.r.n., pantoprazole 40 mg p.o. daily. She was also on Compazine 25 mg q. 12 hours, acetaminophen. She was on nebulizer, on antacid, vitamin C, Coreg, Lovenox. She was also on Diflucan for 5 days. REVIEW OF SYSTEMS: Unable to obtain. SURGICAL HISTORY: Not available. SOCIAL HISTORY: Negative for smoking or drinking. She comes from the skilled nursing. VITALS: Here, she did have 103.2 this morning; now she is afebrile. Temperature is 98.8, pulse is 94. She was tachycardic. Blood pressure 114/68, respirations are 20. She is on nasal oxygen. HEAD: Atraumatic, normocephalic. She is very drowsy, unresponsive with nasal cannula. NECK: Supple. SCOUT is flat. LUNGS: Clear. No crackles or rales heard. No wheezing present. HEART: S1, S2, tachycardic. ABDOMEN: Soft, flabby, nontender, no guarding, no rigidity present. EXTREMITIES: No edema, clubbing, or cyanosis. The sacral area wound is healing. SKIN: Has no rashes. She remains with altered mental status. LABORATORIES: Noted. Labs show white count is 3.9, hemoglobin 11, hematocrit 34.5, platelet count is 103, neutrophils are 80, and INR is 1.2. They did an ABG which showed she is retaining CO2 of 7.35, CO2 of 65, and oxygen saturation was 78.8. So maybe we need to just oxygen. Sodium is 143, potassium 4.1, chloride is 100, CO2 is 35, and LFTs are unremarkable. UA shows 2+ blood, nitrites positive, leukocytes 3+, WBC is 129, and bacteria many. Chest x-ray was done. Chest x-ray shows worsening air space opacification throughout the left hemithorax with associated [id number] pleural effusion, venous congestion in the right hemithorax with right hilar prominence. So she may be in failure; it is unclear, or pneumonia since she comes with sepsis. The CAT scan of the head did not reveal any acute infarct. It says bilateral nonspecific mastoid effusion, and probable fluid within middle ear cavity bilaterally. This is probably new on the right side, but is stable finding on the left side. IMp: sepsis with altered mental status with pneumonia,uti with high fever So at this time, I had started her on vancomycin and meropenem, covering for the urine as well as for the lungs at this time. Urine is already growing gram- negative rods. Will follow, and once she improves clinically and the ID and sensitivity available, will de-escalate the antibiotics. Will follow. John Richardson MD cc: [id number] TT: 04/11/2016 21:31:26 Confirmation # [id number] Dictation # [id number]
[2016-04-14] MEDS: Meropenem 1 GM in Sodium Chloride 0.9% 100 ML IVPB SCH (08:32)
[2016-04-14] MEDS: Sodium Chloride 0.45% 1,000 ML IV SCH ×2 (08:33→20:00)
[2016-04-14] MEDS: Enoxaparin 40 mg Syringe SC SCH (09:30)
[2016-04-14] MEDS: Pantoprazole 40 mg EC Tab PO SCH (09:30)
--- NOTE | 2016-04-14 11:23 | CP.PCM.PN ---
Subjective - Date & Time of Evaluation Date of Evaluation: 04/14/16 Time of Evaluation: 11:00 - Subjective Subjective: Lethargic Respods to physical stimuli by grimacing Objective - Vital Signs/Intake and Output Vital Signs (last 24 hours): Temp Pulse Resp BP Pulse Ox 97.3 F L 107 H 20 130/67 98 04/14/16 07:02 04/14/16 08:00 04/14/16 07:02 04/14/16 07:02 04/14/16 07:02 Intake and Output: 04/14/16 04/14/16 06:59 18:59 Intake Total 200 Output Total 1000 Balance -800 - Medications Medications: Current Medications Acetaminophen (Tylenol 650 Mg Supp) 650 mg [place] Q4 PRN PRN Reason: Fever >100.4 F Last Admin: 04/12/16 22:25 Dose: 650 mg Acetaminophen (Tylenol 325mg Tab) 650 mg PO Q4 PRN PRN Reason: Temperature > 100.4 Al Hydrox/Mg Hydrox/Simethicone (Maalox Plus 30 Ml) 30 ml PO Q4H PRN PRN Reason: GI distress Albuterol/Ipratropium (Duoneb 3 Mg/0.5 Mg (3 Ml) Ud) 3 ml IH RTID [facility] Last Admin: 04/14/16 07:28 Dose: Not Given Ascorbic Acid (Vitamin C 500 Mg Tab) 500 mg PO DAILY [facility] Last Admin: 04/14/16 09:30 Dose: 500 mg Aspirin (Ecotrin) 81 mg PO DAILY [facility] Last Admin: 04/14/16 09:29 Dose: 81 mg Carvedilol (Coreg) 3.125 mg PO BID [facility] Last Admin: 04/14/16 09:29 Dose: 3.125 mg Enoxaparin Sodium (Lovenox) 40 mg SC DAILY [facility] Last Admin: 04/14/16 09:30 Dose: 40 mg Sodium Chloride (Sodium Chloride 0.45%) 1,000 mls @ 75 mls/hr IV .[id number] [facility] Last Admin: 04/14/16 08:33 Dose: 75 mls/hr Meropenem 1 gm/ Sodium (Chloride) 100 mls @ 100 mls/hr IVPB RQ12 [facility] Last Admin: 04/14/16 08:32 Dose: 100 mls/hr Aztreonam 1 gm/ Sodium (Chloride) 100 mls @ 200 mls/hr IVPB Q8H [facility] Last Admin: 04/14/16 06:55 Dose: 200 mls/hr Levetiracetam (Keppra) 750 mg PO BID [facility] Last Admin: 04/14/16 09:30 Dose: 750 mg Loperamide HCl (Imodium) 2 mg PO TID PRN PRN Reason: DIARRHEA Magnesium Hydroxide (Milk Of Magnesia) 30 ml PO HS PRN PRN Reason: Constipation Pantoprazole Sodium (Protonix Ec Tab) 40 mg PO DAILY [facility] Last Admin: 04/14/16 09:30 Dose: 40 mg Prochlorperazine (Compazine Rectal Supp) 25 mg RC Q12H PRN PRN Reason: Nausea/Vomiting - Labs Labs: 04/13/16 07:02 04/13/16 07:02 PT 13.3 SECONDS (9.7-12.2) H 04/10/16 19:04 INR 1.2 04/10/16 19:04 APTT 27 SECONDS (21-34) 04/10/16 19:04 - Respiratory Exam Additional comments: Lungs clear - Cardiovascular Exam Cardiovascular Exam: REGULAR RHYTHM - Extremities Exam Additional comments: No edema Assessment and Plan - Assessment and Plan (Free Text) Assessment: CKD Creatinine is stable, In 2013 Creat level was 1.5 Hypernatremia corrected UTI AMS Plan: Renal US continue to monitor renal function
--- NOTE | 2016-04-14 15:10 | US ---
PROCEDURE: Ultrasound of the Kidneys HISTORY: Renal failure COMPARISON: None available. TECHNIQUE: Sonogram of the kidneys. FINDINGS: RIGHT KIDNEY: Measures: 12.1 cm. Normal in size, contour and with diffuse increased echogenicity. There is moderate hydronephrosis. There are echogenic foci in the renal sinus which may represent nonobstructing stones or nonspecific calcifications. No solid mass. There is a 1.2 x 1.0 x 10.9 cm simple cyst in the lower pole. LEFT KIDNEY: Measures: 11.0 cm. Normal in size, contour and with diffuse increased echogenicity. Echogenic foci in the renal sinus are most compatible with vascular calcifications. No stone, solid mass lesion or hydronephrosis visualized. There is a 0.8 x 0.9 x 0.7 cm simple cyst in the upper pole. OTHER FINDINGS: Incidental note is made of gallstones. IMPRESSION: 1. Moderate right hydronephrosis. Question of nonobstructing stones. If clinically indicated, CT scan may be performed for further evaluation. 2. No left nephrolithiasis or hydronephrosis. 3. Medical renal disease.
[2016-04-14 16:35] LABS: RBC URINE 22 /hpf (0-3); TRANSITIONAL EPITHIAL < 1 /hpf (0-3); URINE BACTERIA OCC (<OCC); URINE BILIRUBIN NEGATIVE (NEGATIVE); URINE BLOOD 2+ (NEGATIVE); URINE COLOR Yellow (YELLOW); URINE GLUCOSE (UA) NORMAL (Normal); URINE KETONE NEGATIVE (NEGATIVE); URINE LEUKOCYTE ESTERASE 3+ Leu/uL (Negative); URINE PROTEIN 1+ mg/dL (NEGATIVE); URINE UROBILINOGEN NORMAL mg/dL (0.2-1.0); WBC URINE 31 /hpf (0-5)
--- NOTE | 2016-04-14 17:37 | CP.PCM.PN ---
Subjective - Date & Time of Evaluation Date of Evaluation: 04/14/16 Time of Evaluation: 17:35 - Subjective Subjective: pt sleepy lethargic doesnt c/o blood cultures positive Objective - Vital Signs/Intake and Output Vital Signs (last 24 hours): Temp Pulse Resp BP Pulse Ox 98.7 F 90 20 109/66 100 04/14/16 16:21 04/14/16 16:21 04/14/16 16:21 04/14/16 16:21 04/14/16 16:21 Intake and Output: 04/14/16 04/14/16 06:59 18:59 Intake Total 200 Output Total 1000 Balance -800 - Medications Medications: Current Medications Acetaminophen (Tylenol 650 Mg Supp) 650 mg [place] Q4 PRN PRN Reason: Fever >100.4 F Last Admin: 04/12/16 22:25 Dose: 650 mg Acetaminophen (Tylenol 325mg Tab) 650 mg PO Q4 PRN PRN Reason: Temperature > 100.4 Al Hydrox/Mg Hydrox/Simethicone (Maalox Plus 30 Ml) 30 ml PO Q4H PRN PRN Reason: GI distress Albuterol/Ipratropium (Duoneb 3 Mg/0.5 Mg (3 Ml) Ud) 3 ml IH RTID [facility] Last Admin: 04/14/16 13:30 Dose: 3 ml Ascorbic Acid (Vitamin C 500 Mg Tab) 500 mg PO DAILY [facility] Last Admin: 04/14/16 09:30 Dose: 500 mg Aspirin (Ecotrin) 81 mg PO DAILY [facility] Last Admin: 04/14/16 09:29 Dose: 81 mg Carvedilol (Coreg) 3.125 mg PO BID [facility] Last Admin: 04/14/16 09:29 Dose: 3.125 mg Enoxaparin Sodium (Lovenox) 40 mg SC DAILY [facility] Last Admin: 04/14/16 09:30 Dose: 40 mg Sodium Chloride (Sodium Chloride 0.45%) 1,000 mls @ 75 mls/hr IV .[id number] [facility] Last Admin: 04/14/16 08:33 Dose: 75 mls/hr Meropenem 1 gm/ Sodium (Chloride) 100 mls @ 100 mls/hr IVPB RQ12 [facility] Last Admin: 04/14/16 08:32 Dose: 100 mls/hr Aztreonam 1 gm/ Sodium (Chloride) 100 mls @ 200 mls/hr IVPB Q8H [facility] Last Admin: 04/14/16 14:59 Dose: 200 mls/hr Levetiracetam (Keppra) 750 mg PO BID [facility] Last Admin: 04/14/16 09:30 Dose: 750 mg Loperamide HCl (Imodium) 2 mg PO TID PRN PRN Reason: DIARRHEA Magnesium Hydroxide (Milk Of Magnesia) 30 ml PO HS PRN PRN Reason: Constipation Pantoprazole Sodium (Protonix Ec Tab) 40 mg PO DAILY [facility] Last Admin: 04/14/16 09:30 Dose: 40 mg Prochlorperazine (Compazine Rectal Supp) 25 mg RC Q12H PRN PRN Reason: Nausea/Vomiting - Labs Labs: 04/13/16 07:02 04/13/16 07:02 PT 13.3 SECONDS (9.7-12.2) H 04/10/16 19:04 INR 1.2 04/10/16 19:04 APTT 27 SECONDS (21-34) 04/10/16 19:04 - Constitutional Appears: No Acute Distress - Head Exam Head Exam: NORMOCEPHALIC - ENT Exam ENT Exam: Mucous Membranes Moist - Neck Exam Additional comments: limited movements - Respiratory Exam Respiratory Exam: NORMAL BREATHING PATTERN - Cardiovascular Exam Cardiovascular Exam: REGULAR RHYTHM - GI/Abdominal Exam GI & Abdominal Exam: Normal Bowel Sounds - Rectal Exam Rectal Exam: NORMAL INSPECTION - Exam Speculum exam: NORMAL SPECULUM EXAM - Extremities Exam Extremities Exam: Normal Inspection - Back Exam Back Exam: NORMAL INSPECTION - Psychiatric Exam Psychiatric exam: Depressed - Skin Skin Exam: Normal Color Assessment and Plan - Assessment and Plan (Free Text) Assessment: bactreamia uti ms Plan: will discuss dr muniz
--- NOTE | 2016-04-14 18:29 | CP.PCM.PN ---
Subjective - Date & Time of Evaluation Date of Evaluation: 04/14/16 Time of Evaluation: 08:00 - Subjective Subjective: WEAK AND LETHARGIC BLOOD C/S COCCI IN 1/2 SETS URINE GREW PROVIDNCIA RX IN PROGRESS CONT RX PER DR ARITA Objective - Vital Signs/Intake and Output Vital Signs (last 24 hours): Temp Pulse Resp BP Pulse Ox 98.7 F 90 20 109/66 100 04/14/16 16:21 04/14/16 16:21 04/14/16 16:21 04/14/16 16:21 04/14/16 16:21 Intake and Output: 04/14/16 04/14/16 06:59 18:59 Intake Total 200 Output Total 1000 Balance -800 - Medications Medications: Current Medications Acetaminophen (Tylenol 650 Mg Supp) [address] Q4 PRN PRN Reason: Fever >100.4 F Last Admin: 04/12/16 22:25 Dose: 650 mg Acetaminophen (Tylenol 325mg Tab) 650 mg PO Q4 PRN PRN Reason: Temperature > 100.4 Al Hydrox/Mg Hydrox/Simethicone (Maalox Plus 30 Ml) 30 ml PO Q4H PRN PRN Reason: GI distress Albuterol/Ipratropium (Duoneb 3 Mg/0.5 Mg (3 Ml) Ud) 3 ml IH RTID [facility] Last Admin: 04/14/16 13:30 Dose: 3 ml Ascorbic Acid (Vitamin C 500 Mg Tab) 500 mg PO DAILY [facility] Last Admin: 04/14/16 09:30 Dose: 500 mg Aspirin (Ecotrin) 81 mg PO DAILY [facility] Last Admin: 04/14/16 09:29 Dose: 81 mg Carvedilol (Coreg) 3.125 mg PO BID [facility] Last Admin: 04/14/16 17:47 Dose: 3.125 mg Enoxaparin Sodium (Lovenox) 40 mg SC DAILY [facility] Last Admin: 04/14/16 09:30 Dose: 40 mg Sodium Chloride (Sodium Chloride 0.45%) 1,000 mls @ 75 mls/hr IV .[id number] [facility] Last Admin: 04/14/16 08:33 Dose: 75 mls/hr Meropenem 1 gm/ Sodium (Chloride) 100 mls @ 100 mls/hr IVPB RQ12 [facility] Last Admin: 04/14/16 08:32 Dose: 100 mls/hr Aztreonam 1 gm/ Sodium (Chloride) 100 mls @ 200 mls/hr IVPB Q8H [facility] Last Admin: 04/14/16 14:59 Dose: 200 mls/hr Levetiracetam (Keppra) 750 mg PO BID [facility] Last Admin: 04/14/16 17:47 Dose: 750 mg Loperamide HCl (Imodium) 2 mg PO TID PRN PRN Reason: DIARRHEA Magnesium Hydroxide (Milk Of Magnesia) 30 ml PO HS PRN PRN Reason: Constipation Pantoprazole Sodium (Protonix Ec Tab) 40 mg PO DAILY [facility] Last Admin: 04/14/16 09:30 Dose: 40 mg Prochlorperazine (Compazine Rectal Supp) 25 mg RC Q12H PRN PRN Reason: Nausea/Vomiting - Labs Labs: 04/13/16 07:02 04/13/16 07:02 PT 13.3 SECONDS (9.7-12.2) H 04/10/16 19:04 INR 1.2 04/10/16 19:04 APTT 27 SECONDS (21-34) 04/10/16 19:04 - Constitutional Appears: Non-toxic, Confused, Cachectic, Chronically Ill - Head Exam Head Exam: NORMOCEPHALIC - Eye Exam Eye Exam: PERRL. absent: Scleral icterus - ENT Exam ENT Exam: Mucous Membranes Dry - Neck Exam Neck Exam: absent: Lymphadenopathy - Respiratory Exam Respiratory Exam: Decreased Breath Sounds, Rhonchi - Cardiovascular Exam Cardiovascular Exam: REGULAR RHYTHM, +S1, +S2 - GI/Abdominal Exam GI & Abdominal Exam: Distended, Soft - Rectal Exam Rectal Exam: Deferred - Exam Exam: NORMAL INSPECTION - Extremities Exam Extremities Exam: absent: Calf Tenderness, Pedal Edema - Back Exam Back Exam: absent: CVA tenderness (L), CVA tenderness (R) - Neurological Exam Neurological Exam: Alert, Awake Assessment and Plan (1) Leukocytosis Status: Acute (2) Sepsis Status: Acute (3) UTI (urinary tract infection) Status: Acute
--- NOTE | 2016-04-15 01:18 | CP.PCM.PN ---
Subjective - Date & Time of Evaluation Date of Evaluation: 04/14/16 Time of Evaluation: 20:10 - Subjective Subjective: Blood infection with Gram Positive Coagulase negative Cocci. Patient is suffering from UTI with Providencia Stuartii Bacteria. Her interaction are less easy than before as she doesn't talk like before. She is Lethargic. Her Hypernatremia is better controlled. She is followed by Nephrology by Dr Aylin Gutierrez. She responds to physical stimuli by grimacing. She is followed by ID Dr Bauman and her condition is better controlled infection garcia. US Kidneys is showing: IMPRESSION of US Kidneys: 1. Moderate right hydronephrosis. Question of non obstructing stones. If clinically indicated, CT scan may be performed for further evaluation. 2. No left nephrolithiasis or hydronephrosis. 3. Medical renal disease. MRI Brain was not performed, MRI L.S spine is not performed as Radiology decided for technical reasons. 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 She doesn't move head and has small lacunar C.V.A were seen on C.T Brain. Objective - Vital Signs/Intake and Output Vital Signs (last 24 hours): Temp Pulse Resp BP Pulse Ox 98.7 F 90 20 109/66 100 04/14/16 16:21 04/14/16 16:21 04/14/16 16:21 04/14/16 16:21 04/14/16 16:21 Intake and Output: 04/14/16 04/15/16 18:59 06:59 Intake Total 150 Output Total 350 Balance -200 - Medications Medications: Current Medications Acetaminophen (Tylenol 650 Mg Supp) 650 mg [place] Q4 PRN PRN Reason: Fever >100.4 F Last Admin: 04/12/16 22:25 Dose: 650 mg Acetaminophen (Tylenol 325mg Tab) 650 mg PO Q4 PRN PRN Reason: Temperature > 100.4 Al Hydrox/Mg Hydrox/Simethicone (Maalox Plus 30 Ml) 30 ml PO Q4H PRN PRN Reason: GI distress Albuterol/Ipratropium (Duoneb 3 Mg/0.5 Mg (3 Ml) Ud) 3 ml IH RTID [facility] Last Admin: 04/14/16 21:10 Dose: 3 ml Ascorbic Acid (Vitamin C 500 Mg Tab) 500 mg PO DAILY [facility] Last Admin: 04/14/16 09:30 Dose: 500 mg Aspirin (Ecotrin) 81 mg PO DAILY [facility] Last Admin: 04/14/16 09:29 Dose: 81 mg Carvedilol (Coreg) 3.125 mg PO BID [facility] Last Admin: 04/14/16 17:47 Dose: 3.125 mg Enoxaparin Sodium (Lovenox) 40 mg SC DAILY [facility] Last Admin: 04/14/16 09:30 Dose: 40 mg Sodium Chloride (Sodium Chloride 0.45%) 1,000 mls @ 75 mls/hr IV .[id number] [facility] Last Admin: 04/14/16 20:00 Dose: Not Given Aztreonam 1 gm/ Sodium (Chloride) 100 mls @ 200 mls/hr IVPB Q8H [facility] Last Admin: 04/14/16 22:25 Dose: 200 mls/hr Levetiracetam (Keppra) 750 mg PO BID [facility] Last Admin: 04/14/16 17:47 Dose: 750 mg Loperamide HCl (Imodium) 2 mg PO TID PRN PRN Reason: DIARRHEA Magnesium Hydroxide (Milk Of Magnesia) 30 ml PO HS PRN PRN Reason: Constipation Pantoprazole Sodium (Protonix Ec Tab) 40 mg PO DAILY [facility] Last Admin: 04/14/16 09:30 Dose: 40 mg Prochlorperazine (Compazine Rectal Supp) 25 mg RC Q12H PRN PRN Reason: Nausea/Vomiting - Labs Labs: 04/13/16 07:02 04/13/16 07:02 PT 13.3 SECONDS (9.7-12.2) H 04/10/16 19:04 INR 1.2 04/10/16 19:04 APTT 27 SECONDS (21-34) 04/10/16 19:04 Assessment and Plan (1) Pneumonia Status: Acute (2) Sacral decubitus ulcer Status: Acute (3) UTI (urinary tract infection) Status: Acute (4) Seizures Status: Chronic (5) LIME (hard of hearing) Status: Chronic (6) Paraplegia Status: Chronic
[2016-04-15] MEDS: Sodium Chloride 0.45% 1,000 ML IV SCH ×2 (04:27→23:59)
[2016-04-15] MEDS: Aztreonam 1 GM in Sodium Chloride 0.9% 100 ML IVPB SCH ×3 (05:19→21:28)
[2016-04-15] MEDS: Albuterol-Ipratrop 3 mg / 0.5 (3 ml) UD IH SCH ×3 (07:38→21:47)
[2016-04-15] MEDS: Pantoprazole 40 mg EC Tab PO SCH (10:00)
[2016-04-15] MEDS: Enoxaparin 40 mg Syringe SC SCH (10:00)
--- NOTE | 2016-04-15 11:05 | CP.PCM.PN ---
Subjective - Date & Time of Evaluation Date of Evaluation: 04/15/16 Time of Evaluation: 11:02 - Subjective Subjective: she is more awake enedina buitrago said no pain if taks her med Objective - Vital Signs/Intake and Output Vital Signs (last 24 hours): Temp Pulse Resp BP Pulse Ox 98 F 89 19 118/71 100 04/15/16 08:03 04/15/16 08:03 04/15/16 08:03 04/15/16 08:03 04/15/16 08:03 Intake and Output: 04/15/16 04/15/16 06:59 18:59 Intake Total 975 Output Total 600 Balance 375 - Medications Medications: Current Medications Acetaminophen (Tylenol 650 Mg Supp) 650 mg [place] Q4 PRN PRN Reason: Fever >100.4 F Last Admin: 04/12/16 22:25 Dose: 650 mg Acetaminophen (Tylenol 325mg Tab) 650 mg PO Q4 PRN PRN Reason: Temperature > 100.4 Last Admin: 04/15/16 08:44 Dose: 650 mg Al Hydrox/Mg Hydrox/Simethicone (Maalox Plus 30 Ml) 30 ml PO Q4H PRN PRN Reason: GI distress Albuterol/Ipratropium (Duoneb 3 Mg/0.5 Mg (3 Ml) Ud) 3 ml IH RTID [facility] Last Admin: 04/15/16 07:38 Dose: 3 ml Ascorbic Acid (Vitamin C 500 Mg Tab) 500 mg PO DAILY [facility] Last Admin: 04/14/16 09:30 Dose: 500 mg Aspirin (Ecotrin) 81 mg PO DAILY [facility] Last Admin: 04/14/16 09:29 Dose: 81 mg Carvedilol (Coreg) 3.125 mg PO BID [facility] Last Admin: 04/14/16 17:47 Dose: 3.125 mg Enoxaparin Sodium (Lovenox) 40 mg SC DAILY [facility] Last Admin: 04/14/16 09:30 Dose: 40 mg Sodium Chloride (Sodium Chloride 0.45%) 1,000 mls @ 75 mls/hr IV .[id number] [facility] Last Admin: 04/15/16 04:27 Dose: 75 mls/hr Aztreonam 1 gm/ Sodium (Chloride) 100 mls @ 200 mls/hr IVPB Q8H [facility] Last Admin: 04/15/16 05:19 Dose: 200 mls/hr Levetiracetam (Keppra) 750 mg PO BID [facility] Last Admin: 04/14/16 17:47 Dose: 750 mg Loperamide HCl (Imodium) 2 mg PO TID PRN PRN Reason: DIARRHEA Magnesium Hydroxide (Milk Of Magnesia) 30 ml PO HS PRN PRN Reason: Constipation Pantoprazole Sodium (Protonix Ec Tab) 40 mg PO DAILY [facility] Last Admin: 04/14/16 09:30 Dose: 40 mg Prochlorperazine (Compazine Rectal Supp) 25 mg RC Q12H PRN PRN Reason: Nausea/Vomiting - Labs Labs: 04/13/16 07:02 04/13/16 07:02 PT 13.3 SECONDS (9.7-12.2) H 04/10/16 19:04 INR 1.2 04/10/16 19:04 APTT 27 SECONDS (21-34) 04/10/16 19:04 - Constitutional Appears: Non-toxic - Head Exam Head Exam: NORMAL INSPECTION - Eye Exam Pupil Exam: NORMAL ACCOMODATION - ENT Exam ENT Exam: Mucous Membranes Moist - Neck Exam Additional comments: left side prfrence position - Respiratory Exam Respiratory Exam: Clear to Ausculation Bilateral - Cardiovascular Exam Cardiovascular Exam: REGULAR RHYTHM - GI/Abdominal Exam GI & Abdominal Exam: Normal Bowel Sounds - Rectal Exam Rectal Exam: NORMAL INSPECTION - Extremities Exam Extremities Exam: Normal Inspection - Neurological Exam Neurological Exam: Awake - Psychiatric Exam Psychiatric exam: Normal Affect - Skin Skin Exam: Normal Color (repeat blood culture isra neg spoke to dr muniz ) Assessment and Plan - Assessment and Plan (Free Text) Assessment: s/p bactreamia improving debra ams improving ms Plan: after id evaluation if cleared will d/c
--- NOTE | 2016-04-15 11:07 | CP.PCM.PN ---
Subjective - Date & Time of Evaluation Date of Evaluation: 04/15/16 Time of Evaluation: 09:00 - Subjective Subjective: blood c/s + cocci need final report may need further diagnostics/ therapeutic adjustment Objective - Vital Signs/Intake and Output Vital Signs (last 24 hours): Temp Pulse Resp BP Pulse Ox 98 F 89 19 118/71 100 04/15/16 08:03 04/15/16 08:03 04/15/16 08:03 04/15/16 08:03 04/15/16 08:03 Intake and Output: 04/15/16 04/15/16 06:59 18:59 Intake Total 975 Output Total 600 Balance 375 - Medications Medications: Current Medications Acetaminophen (Tylenol 650 Mg Supp) 650 mg [place] Q4 PRN PRN Reason: Fever >100.4 F Last Admin: 04/12/16 22:25 Dose: 650 mg Acetaminophen (Tylenol 325mg Tab) 650 mg PO Q4 PRN PRN Reason: Temperature > 100.4 Last Admin: 04/15/16 08:44 Dose: 650 mg Al Hydrox/Mg Hydrox/Simethicone (Maalox Plus 30 Ml) 30 ml PO Q4H PRN PRN Reason: GI distress Albuterol/Ipratropium (Duoneb 3 Mg/0.5 Mg (3 Ml) Ud) 3 ml IH RTID [facility] Last Admin: 04/15/16 07:38 Dose: 3 ml Ascorbic Acid (Vitamin C 500 Mg Tab) 500 mg PO DAILY [facility] Last Admin: 04/14/16 09:30 Dose: 500 mg Aspirin (Ecotrin) 81 mg PO DAILY [facility] Last Admin: 04/14/16 09:29 Dose: 81 mg Carvedilol (Coreg) 3.125 mg PO BID [facility] Last Admin: 04/14/16 17:47 Dose: 3.125 mg Enoxaparin Sodium (Lovenox) 40 mg SC DAILY [facility] Last Admin: 04/14/16 09:30 Dose: 40 mg Sodium Chloride (Sodium Chloride 0.45%) 1,000 mls @ 75 mls/hr IV .[id number] [facility] Last Admin: 04/15/16 04:27 Dose: 75 mls/hr Aztreonam 1 gm/ Sodium (Chloride) 100 mls @ 200 mls/hr IVPB Q8H [facility] Last Admin: 04/15/16 05:19 Dose: 200 mls/hr Levetiracetam (Keppra) 750 mg PO BID [facility] Last Admin: 04/14/16 17:47 Dose: 750 mg Loperamide HCl (Imodium) 2 mg PO TID PRN PRN Reason: DIARRHEA Magnesium Hydroxide (Milk Of Magnesia) 30 ml PO HS PRN PRN Reason: Constipation Pantoprazole Sodium (Protonix Ec Tab) 40 mg PO DAILY [facility] Last Admin: 04/14/16 09:30 Dose: 40 mg Prochlorperazine (Compazine Rectal Supp) 25 mg RC Q12H PRN PRN Reason: Nausea/Vomiting - Labs Labs: 04/13/16 07:02 04/13/16 07:02 PT 13.3 SECONDS (9.7-12.2) H 04/10/16 19:04 INR 1.2 04/10/16 19:04 APTT 27 SECONDS (21-34) 04/10/16 19:04 - Constitutional Appears: Chronically Ill - Head Exam Head Exam: NORMOCEPHALIC - Eye Exam Eye Exam: absent: Scleral icterus - ENT Exam ENT Exam: Mucous Membranes Dry - Neck Exam Neck Exam: absent: Lymphadenopathy - Respiratory Exam Respiratory Exam: Decreased Breath Sounds, Clear to Ausculation Bilateral - Cardiovascular Exam Cardiovascular Exam: REGULAR RHYTHM, +S1, +S2 - GI/Abdominal Exam GI & Abdominal Exam: Distended, Soft Assessment and Plan (1) Leukocytosis Status: Acute (2) Sepsis Status: Acute (3) UTI (urinary tract infection) Status: Acute
--- NOTE | 2016-04-15 11:44 | CP.PCM.PN ---
Subjective - Date & Time of Evaluation Date of Evaluation: 04/15/16 Time of Evaluation: 10:30 - Subjective Subjective: Pt is alert & talking. States she fels much better today Objective - Vital Signs/Intake and Output Vital Signs (last 24 hours): Temp Pulse Resp BP Pulse Ox 98 F 89 19 118/71 100 04/15/16 08:03 04/15/16 08:03 04/15/16 08:03 04/15/16 08:03 04/15/16 08:03 Intake and Output: 04/15/16 04/15/16 06:59 18:59 Intake Total 975 Output Total 600 Balance 375 - Medications Medications: Current Medications Acetaminophen (Tylenol 650 Mg Supp) 650 mg [place] Q4 PRN PRN Reason: Fever >100.4 F Last Admin: 04/12/16 22:25 Dose: 650 mg Acetaminophen (Tylenol 325mg Tab) 650 mg PO Q4 PRN PRN Reason: Temperature > 100.4 Last Admin: 04/15/16 08:44 Dose: 650 mg Al Hydrox/Mg Hydrox/Simethicone (Maalox Plus 30 Ml) 30 ml PO Q4H PRN PRN Reason: GI distress Albuterol/Ipratropium (Duoneb 3 Mg/0.5 Mg (3 Ml) Ud) 3 ml IH RTID [facility] Last Admin: 04/15/16 07:38 Dose: 3 ml Ascorbic Acid (Vitamin C 500 Mg Tab) 500 mg PO DAILY [facility] Last Admin: 04/14/16 09:30 Dose: 500 mg Aspirin (Ecotrin) 81 mg PO DAILY [facility] Last Admin: 04/14/16 09:29 Dose: 81 mg Carvedilol (Coreg) 3.125 mg PO BID [facility] Last Admin: 04/14/16 17:47 Dose: 3.125 mg Enoxaparin Sodium (Lovenox) 40 mg SC DAILY [facility] Last Admin: 04/14/16 09:30 Dose: 40 mg Sodium Chloride (Sodium Chloride 0.45%) 1,000 mls @ 75 mls/hr IV .[id number] [facility] Last Admin: 04/15/16 04:27 Dose: 75 mls/hr Aztreonam 1 gm/ Sodium (Chloride) 100 mls @ 200 mls/hr IVPB Q8H [facility] Last Admin: 04/15/16 05:19 Dose: 200 mls/hr Levetiracetam (Keppra) 750 mg PO BID [facility] Last Admin: 04/14/16 17:47 Dose: 750 mg Loperamide HCl (Imodium) 2 mg PO TID PRN PRN Reason: DIARRHEA Magnesium Hydroxide (Milk Of Magnesia) 30 ml PO HS PRN PRN Reason: Constipation Pantoprazole Sodium (Protonix Ec Tab) 40 mg PO DAILY [facility] Last Admin: 04/14/16 09:30 Dose: 40 mg Prochlorperazine (Compazine Rectal Supp) 25 mg RC Q12H PRN PRN Reason: Nausea/Vomiting - Labs Labs: 04/13/16 07:02 04/13/16 07:02 PT 13.3 SECONDS (9.7-12.2) H 04/10/16 19:04 INR 1.2 04/10/16 19:04 APTT 27 SECONDS (21-34) 04/10/16 19:04 - Respiratory Exam Additional comments: Lungs clear - Cardiovascular Exam Cardiovascular Exam: REGULAR RHYTHM - GI/Abdominal Exam GI & Abdominal Exam: Soft Additional comments: nontender - Extremities Exam Additional comments: No edema Assessment and Plan - Assessment and Plan (Free Text) Assessment: CK D. Todays labs pending Jacqueline; US shows b/L echogenic kidneys Rt moderate hydronephrosis & nonobstructing renal calculi noted on US Pneumonia UTI Hx/o seizures Plan: Remain afebrile. Abx per ID Labs ordered Suggest urology evaluation
[2016-04-15 14:02] LABS: HEMATOCRIT 29.1 % (34.0-47.0); MEAN CELL VOLUME 78.9 fL (81.0-99.0); MEAN CORPUSCULAR HEMOGLOBIN 25.3 pg (27.0-31.0); MEAN PLATELET VOLUME 9.3 fL (7.2-11.7); RED CELL DISTRIBUTION WIDTH 18.1 % (11.5-14.5); WHITE BLOOD COUNT 5.5 K/uL (4.8-10.8)
[2016-04-15 14:23] LABS: POTASSIUM 3.8 mmol/L (3.6-5.2)
[2016-04-15 14:27] LABS: CALCIUM 7.3 mg/dl (8.6-10.4); URIC ACID 5.5 mg/dL (2.2-7.5)
--- NOTE | 2016-04-16 00:28 | CP.PCM.PN ---
Subjective - Date & Time of Evaluation Date of Evaluation: 04/15/16 Time of Evaluation: 20:35 - Subjective Subjective: Patient is doing better, she speaks better and says sentences and she says she feels better. Patient is recovering from Bacteremia and UTI. MRI was not possible as the MRI related introductory questions are left unanswered as no one in her family is there to answer the questions. She has flaccid paraplegia and does not move her neck for long time and her CT Brain is showing bilateral Mastoid effusion. Objective - Vital Signs/Intake and Output Vital Signs (last 24 hours): Temp Pulse Resp BP Pulse Ox 98.5 F 95 H 20 117/63 98 04/15/16 15:43 04/15/16 15:43 04/15/16 15:43 04/15/16 15:43 04/15/16 15:43 Intake and Output: 04/15/16 04/16/16 18:59 06:59 Intake Total 450 660 Output Total 225 500 Balance 225 160 - Medications Medications: Current Medications Acetaminophen (Tylenol 650 Mg Supp) 650 mg [place] Q4 PRN PRN Reason: Fever >100.4 F Last Admin: 04/12/16 22:25 Dose: 650 mg Acetaminophen (Tylenol 325mg Tab) 650 mg PO Q4 PRN PRN Reason: Temperature > 100.4 Last Admin: 04/15/16 08:44 Dose: 650 mg Al Hydrox/Mg Hydrox/Simethicone (Maalox Plus 30 Ml) 30 ml PO Q4H PRN PRN Reason: GI distress Albuterol/Ipratropium (Duoneb 3 Mg/0.5 Mg (3 Ml) Ud) 3 ml IH RTID [facility] Last Admin: 04/15/16 21:47 Dose: 3 ml Ascorbic Acid (Vitamin C 500 Mg Tab) 500 mg PO DAILY [facility] Last Admin: 04/15/16 10:00 Dose: 500 mg Aspirin (Ecotrin) 81 mg PO DAILY [facility] Last Admin: 04/15/16 10:00 Dose: 81 mg Carvedilol (Coreg) 3.125 mg PO BID [facility] Last Admin: 04/15/16 19:55 Dose: 3.125 mg Enoxaparin Sodium (Lovenox) 40 mg SC DAILY [facility] Last Admin: 04/15/16 10:00 Dose: 40 mg Aztreonam 1 gm/ Sodium (Chloride) 100 mls @ 200 mls/hr IVPB Q8H [facility] Last Admin: 04/15/16 21:28 Dose: 200 mls/hr Levetiracetam (Keppra) 750 mg PO BID [facility] Last Admin: 04/15/16 19:55 Dose: 750 mg Loperamide HCl (Imodium) 2 mg PO TID PRN PRN Reason: DIARRHEA Magnesium Hydroxide (Milk Of Magnesia) 30 ml PO HS PRN PRN Reason: Constipation Pantoprazole Sodium (Protonix Ec Tab) 40 mg PO DAILY [facility] Last Admin: 04/15/16 10:00 Dose: 40 mg Prochlorperazine (Compazine Rectal Supp) 25 mg RC Q12H PRN PRN Reason: Nausea/Vomiting - Labs Labs: 04/15/16 13:52 04/15/16 13:52 PT 13.3 SECONDS (9.7-12.2) H 04/10/16 19:04 INR 1.2 04/10/16 19:04 APTT 27 SECONDS (21-34) 04/10/16 19:04 Assessment and Plan (1) Pneumonia Status: Acute (2) Sacral decubitus ulcer Status: Chronic (3) UTI (urinary tract infection) Status: Resolved (4) Seizures Status: Chronic (5) [place] (hard of hearing) Status: Chronic (6) Paraplegia Status: Chronic
[2016-04-16] MEDS: Aztreonam 1 GM in Sodium Chloride 0.9% 100 ML IVPB SCH ×2 (05:29→14:06)
[2016-04-16] MEDS: Albuterol-Ipratrop 3 mg / 0.5 (3 ml) UD IH SCH ×2 (07:36→13:34)
--- NOTE | 2016-04-16 10:06 | CP.PCM.PN ---
Subjective - Date & Time of Evaluation Date of Evaluation: 04/16/16 Time of Evaluation: 10:03 - Subjective Subjective: pt lethargic repeate u /a still infection though still on iv antibiotic Objective - Vital Signs/Intake and Output Vital Signs (last 24 hours): Temp Pulse Resp BP Pulse Ox 98.7 F 82 20 124/70 100 04/16/16 08:22 04/16/16 08:22 04/16/16 08:22 04/16/16 08:22 04/16/16 08:22 Intake and Output: 04/16/16 04/16/16 06:59 18:59 Intake Total 1385 Output Total 900 Balance 485 - Medications Medications: Current Medications Acetaminophen (Tylenol 650 Mg Supp) 650 mg WI Q4 PRN PRN Reason: Fever >100.4 F Last Admin: 04/12/16 22:25 Dose: 650 mg Acetaminophen (Tylenol 325mg Tab) 650 mg PO Q4 PRN PRN Reason: Temperature > 100.4 Last Admin: 04/15/16 08:44 Dose: 650 mg Al Hydrox/Mg Hydrox/Simethicone (Maalox Plus 30 Ml) 30 ml PO Q4H PRN PRN Reason: GI distress Albuterol/Ipratropium (Duoneb 3 Mg/0.5 Mg (3 Ml) Ud) 3 ml IH RTID [facility] Last Admin: 04/16/16 07:36 Dose: 3 ml Ascorbic Acid (Vitamin C 500 Mg Tab) 500 mg PO DAILY [facility] Last Admin: 04/15/16 10:00 Dose: 500 mg Aspirin (Ecotrin) 81 mg PO DAILY [facility] Last Admin: 04/15/16 10:00 Dose: 81 mg Carvedilol (Coreg) 3.125 mg PO BID [facility] Last Admin: 04/15/16 19:55 Dose: 3.125 mg Enoxaparin Sodium (Lovenox) 40 mg SC DAILY [facility] Last Admin: 04/15/16 10:00 Dose: 40 mg Aztreonam 1 gm/ Sodium (Chloride) 100 mls @ 200 mls/hr IVPB Q8H [facility] Last Admin: 04/16/16 05:29 Dose: 200 mls/hr Levetiracetam (Keppra) 750 mg PO BID [facility] Last Admin: 04/15/16 19:55 Dose: 750 mg Loperamide HCl (Imodium) 2 mg PO TID PRN PRN Reason: DIARRHEA Magnesium Hydroxide (Milk Of Magnesia) 30 ml PO HS PRN PRN Reason: Constipation Pantoprazole Sodium (Protonix Ec Tab) 40 mg PO DAILY [facility] Last Admin: 04/15/16 10:00 Dose: 40 mg Prochlorperazine (Compazine Rectal Supp) 25 mg RC Q12H PRN PRN Reason: Nausea/Vomiting - Labs Labs: 04/15/16 13:52 04/15/16 13:52 PT 13.3 SECONDS (9.7-12.2) H 04/10/16 19:04 INR 1.2 04/10/16 19:04 APTT 27 SECONDS (21-34) 04/10/16 19:04 - Constitutional Appears: Non-toxic - Head Exam Head Exam: NORMAL INSPECTION - Eye Exam Eye Exam: Normal appearance - ENT Exam ENT Exam: Mucous Membranes Moist - Cardiovascular Exam Cardiovascular Exam: REGULAR RHYTHM - GI/Abdominal Exam GI & Abdominal Exam: Soft - Rectal Exam Rectal Exam: Black Stool, NORMAL INSPECTION - Exam Exam: NORMAL INSPECTION External exam: NORMAL EXTERNAL EXAM - Neurological Exam Neurological Exam: Altered - Skin Skin Exam: Pallor Assessment and Plan - Assessment and Plan (Free Text) Assessment: persistant uti s/p bactreamia ms aneamia Plan: will discuss with dr muniz
[2016-04-16] MEDS: Pantoprazole 40 mg EC Tab PO SCH (10:30)
[2016-04-16] MEDS: Enoxaparin 40 mg Syringe SC SCH (10:30)
--- NOTE | 2016-04-16 14:38 | PCM.HF ---
Heart Failure Core Measure - Heart Failure Ejection Fraction: 40 % or Greater MITESH Inhibitor Prescribed: No Contraindication/Reason for not providing: CKD; EF > 60% Beta-Dontae Prescribed: Carvedilol Angiotensin II Receptor Dontae Prescribed: No Contraindication/Reason for not providing: CKD; EF > 60% AnticoagulationTherapy for Atrial Fibrillation/Atrialflutter: No Contraindication/Reason for not providing: NO H/O AFIB Aldosterone Antagonist Prescribed: No Contraindication/Reason for not providing: CKD; EF > 60% Hydralazine Nitrate Prescribed: No Contraindication/Reason for not providing: CKD; EF > 60% Implantable Cardioverter Defibrillator Therapy: No Contraindication/Reason for not providing: NO H/O AICD; EF > 60% Cardiac Resynchronization Therapy Prescribed: No Contraindication/Reason for not providing: NO H/O; EF > 60% - Follow up Will be discharged to: [facility] ([facility]NIC[facility] RESIDENT-- UNDER DR. Spencer MCINTOSH) Follow Up Date (must be within 7 days from discharge): 04/18/16 Follow Up Time: 09:00
--- NOTE | 2016-04-16 14:40 | CP.PCM.PN ---
Subjective - Date & Time of Evaluation Date of Evaluation: 04/16/16 Time of Evaluation: 14:40 - Subjective Subjective: PT SEEN BY DR. MCNAMARA THIS MORNING AND CLEARED FOR D/C IF CLEARED BY DR. GRANDA. TELEMARKETING SUPERVISOR DISCUSSED BLOOD CX RESULTS AND ABX PLAN WITH DR. GRANDA--PER HIM CONTINUE AZACTAM 1GM IV Q8 HOURS X6 MORE DAYS (GIVE FROM 04/16/16-04/21/16) AND IS CLEARED FOR D/C. PICC LINE TO BE PLACED BY AUDRA STEINBERG---CONSENT WAS REC'D BY TELEMARKETING SUPERVISOR AND PRIMARY RN YOLANDE WITH PT'S NEXT OF KIN, MS. JEAN HANLEY. MS. HANLEY OK'D FOR THE PICC TO BE PLACED AND IS AWARE THAT THE PT WILL RETURN TO [facility] THIS AFTERNOON. TELEMARKETING SUPERVISOR DISCUSSED PLAN WITH ANKITA CHAWLA AND SW TO ARRANGE FOR TRANSPORTATION TO [facility]. NO FURTHER ORDERS. Objective - Vital Signs/Intake and Output Vital Signs (last 24 hours): Temp Pulse Resp BP Pulse Ox 98.7 F 82 20 124/70 100 04/16/16 08:22 04/16/16 09:00 04/16/16 08:22 04/16/16 08:22 04/16/16 08:22 Intake and Output: 04/16/16 04/16/16 06:59 18:59 Intake Total 1385 Output Total 900 Balance 485 - Medications Medications: Current Medications Acetaminophen (Tylenol 650 Mg Supp) 650 mg AR Q4 PRN PRN Reason: Fever >100.4 F Last Admin: 04/12/16 22:25 Dose: 650 mg Acetaminophen (Tylenol 325mg Tab) 650 mg PO Q4 PRN PRN Reason: Temperature > 100.4 Last Admin: 04/15/16 08:44 Dose: 650 mg Al Hydrox/Mg Hydrox/Simethicone (Maalox Plus 30 Ml) 30 ml PO Q4H PRN PRN Reason: GI distress Albuterol/Ipratropium (Duoneb 3 Mg/0.5 Mg (3 Ml) Ud) 3 ml IH RTID [facility] Last Admin: 04/16/16 13:34 Dose: 3 ml Ascorbic Acid (Vitamin C 500 Mg Tab) 500 mg PO DAILY [facility] Last Admin: 04/16/16 10:30 Dose: 500 mg Aspirin (Ecotrin) 81 mg PO DAILY [facility] Last Admin: 04/16/16 10:30 Dose: 81 mg Carvedilol (Coreg) 3.125 mg PO BID [facility] Last Admin: 04/16/16 10:30 Dose: 3.125 mg Enoxaparin Sodium (Lovenox) 40 mg SC DAILY [facility] Last Admin: 04/16/16 10:30 Dose: 40 mg Aztreonam 1 gm/ Sodium (Chloride) 100 mls @ 200 mls/hr IVPB Q8H [facility] Last Admin: 04/16/16 14:06 Dose: 200 mls/hr Levetiracetam (Keppra) 750 mg PO BID [facility] Last Admin: 04/16/16 10:30 Dose: 750 mg Loperamide HCl (Imodium) 2 mg PO TID PRN PRN Reason: DIARRHEA Magnesium Hydroxide (Milk Of Magnesia) 30 ml PO HS PRN PRN Reason: Constipation Pantoprazole Sodium (Protonix Ec Tab) 40 mg PO DAILY [facility] Last Admin: 04/16/16 10:30 Dose: 40 mg Prochlorperazine (Compazine Rectal Supp) 25 mg RC Q12H PRN PRN Reason: Nausea/Vomiting - Labs Labs: 04/15/16 13:52 04/15/16 13:52 PT 13.3 SECONDS (9.7-12.2) H 04/10/16 19:04 INR 1.2 04/10/16 19:04 APTT 27 SECONDS (21-34) 04/10/16 19:04
--- NOTE | 2016-04-16 15:54 | RAD ---
HISTORY: verify right PICC COMPARISON: Chest x-ray performed 04/10/16 TECHNIQUE: Chest, one view. FINDINGS: Examination limited by habitus and patient obliquity. The patient's chin obscures evaluation of the left lung apex. Right-sided PICC extends expected location of the cavoatrial junction. LUNGS: Extensive airspace opacities throughout the left diane thorax with probable moderate size left pleural effusion. Right hilar prominence. No definite pneumothorax. Please note that chest x-ray has limited sensitivity for the detection of pulmonary masses. CARDIOVASCULAR: Cardiomegaly. OSSEOUS STRUCTURES: Degenerative changes of the spine. VISUALIZED UPPER ABDOMEN: Unremarkable. OTHER FINDINGS: None. IMPRESSION: Right-sided PICC extends expected location of the cavoatrial junction. Extensive airspace opacities throughout the left diane thorax with probable moderate size left pleural effusion. Right hilar prominence.
[2016-04-16 16:10] VITALS: BP 114/63; PULSE 93; RESP 18; TEMP 98.3; O2SAT 96
--- NOTE | 2016-04-16 16:14 | CP.PCM.PN ---
Subjective - Date & Time of Evaluation Date of Evaluation: 04/16/16 Time of Evaluation: 04:00 - Subjective Subjective: Comfortable in bed Objective - Vital Signs/Intake and Output Vital Signs (last 24 hours): Temp Pulse Resp BP Pulse Ox 98.3 F 93 H 18 114/63 96 04/16/16 15:35 04/16/16 15:35 04/16/16 15:35 04/16/16 15:35 04/16/16 15:35 Intake and Output: 04/16/16 04/16/16 06:59 18:59 Intake Total 1385 Output Total 900 Balance 485 - Medications Medications: Current Medications Acetaminophen (Tylenol 650 Mg Supp) 650 mg [place] Q4 PRN PRN Reason: Fever >100.4 F Last Admin: 04/12/16 22:25 Dose: 650 mg Acetaminophen (Tylenol 325mg Tab) 650 mg PO Q4 PRN PRN Reason: Temperature > 100.4 Last Admin: 04/15/16 08:44 Dose: 650 mg Al Hydrox/Mg Hydrox/Simethicone (Maalox Plus 30 Ml) 30 ml PO Q4H PRN PRN Reason: GI distress Albuterol/Ipratropium (Duoneb 3 Mg/0.5 Mg (3 Ml) Ud) 3 ml IH RTID [facility] Last Admin: 04/16/16 13:34 Dose: 3 ml Ascorbic Acid (Vitamin C 500 Mg Tab) 500 mg PO DAILY [facility] Last Admin: 04/16/16 10:30 Dose: 500 mg Aspirin (Ecotrin) 81 mg PO DAILY [facility] Last Admin: 04/16/16 10:30 Dose: 81 mg Carvedilol (Coreg) 3.125 mg PO BID [facility] Last Admin: 04/16/16 10:30 Dose: 3.125 mg Enoxaparin Sodium (Lovenox) 40 mg SC DAILY [facility] Last Admin: 04/16/16 10:30 Dose: 40 mg Aztreonam 1 gm/ Sodium (Chloride) 100 mls @ 200 mls/hr IVPB Q8H [facility] Last Admin: 04/16/16 14:06 Dose: 200 mls/hr Levetiracetam (Keppra) 750 mg PO BID [facility] Last Admin: 04/16/16 10:30 Dose: 750 mg Loperamide HCl (Imodium) 2 mg PO TID PRN PRN Reason: DIARRHEA Magnesium Hydroxide (Milk Of Magnesia) 30 ml PO HS PRN PRN Reason: Constipation Pantoprazole Sodium (Protonix Ec Tab) 40 mg PO DAILY [facility] Last Admin: 04/16/16 10:30 Dose: 40 mg Prochlorperazine (Compazine Rectal Supp) 25 mg RC Q12H PRN PRN Reason: Nausea/Vomiting - Labs Labs: 04/15/16 13:52 04/15/16 13:52 PT 13.3 SECONDS (9.7-12.2) H 04/10/16 19:04 INR 1.2 04/10/16 19:04 APTT 27 SECONDS (21-34) 04/10/16 19:04 - Respiratory Exam Additional comments: Lungs clear - Cardiovascular Exam Cardiovascular Exam: REGULAR RHYTHM - GI/Abdominal Exam GI & Abdominal Exam: Soft - Extremities Exam Additional comments: No edema Assessment and Plan - Assessment and Plan (Free Text) Assessment: Renal function is improving. ? Acute on chronic kidney disease Rt hydronephrosis & nonobstructing calculi UTI Pneumonia Plan: Continue to monitor renal function Abx per ID
--- NOTE | 2016-04-17 00:19 | CP.PCM.PN ---
Subjective - Date & Time of Evaluation Date of Evaluation: 04/16/16 Time of Evaluation: 16:00 - Subjective Subjective: Patient is discharged after being Cleared by Dr Granda. She is to continue her IV Antibiotics as an outpatient. Dr GRANDA is contacted and said to CONTINUE AZACTAM 1GM IV Q8 HOURS X6 MORE DAYS (GIVE FROM 04/16/16-04/21/16) after being cleared CLEARED FOR D/C. She is afebrile. Objective - Vital Signs/Intake and Output Vital Signs (last 24 hours): Temp Pulse Resp BP Pulse Ox 98.3 F 93 H 18 114/63 96 04/16/16 15:35 04/16/16 16:00 04/16/16 15:35 04/16/16 15:35 04/16/16 15:35 Intake and Output: 04/16/16 04/17/16 18:59 06:59 Output Total 700 Balance -700 - Labs Labs: 04/15/16 13:52 04/15/16 13:52 PT 13.3 SECONDS (9.7-12.2) H 04/10/16 19:04 INR 1.2 04/10/16 19:04 APTT 27 SECONDS (21-34) 04/10/16 19:04 Assessment and Plan (1) Pneumonia Status: Resolved (2) Sacral decubitus ulcer Status: Chronic (3) UTI (urinary tract infection) Status: Resolved (4) Seizures Status: Chronic (5) [place] (hard of hearing) Status: Chronic (6) Paraplegia Status: Chronic (7) Bacteremia Assessment & Plan: She is receiving AZACTAM 1GM IV Q8 HOURS X6 MORE DAYS (GIVE FROM 04/16/16-04/21/16 ) AND IS CLEARED FOR D/C, as ordered by Dr Granda. Status: Acute
--- NOTE | 2016-04-17 03:25 | EEG ---
DATE: 04/17/2016 The record is obtained for a history of rule out seizures, rule out encephalopathy. There is a history of an altered mental status. The record was obtained while the patient was awake and drowsy. The record was symmetrically equal on both sides with velocity of 6-7 cycles per second. The waves are fairly formed, fairly organized with a posterior distribution, moderate in amplitude, reactive to eye opening by attenuation. There are no abnormal discharges. No spike, no polyspike, no sharp wave, no focal slowing, no paroxysmal discharge. There are periods of drowsiness during which attenuation and slowing of the record were seen and theta waves were seen. There are no periods of sleep that were seen. The record showed eye movement artifact, electrode artifact, and muscle movement artifact. Photic stimulation was performed and did not produce any changes. Hyperventilation was omitted. In sum, this is an abnormal record, significant for generalized slowing. This might be consistent with encephalopathy. Clinical correlation is recommended. Mary Escobar MD cc: [phone] TT: 04/17/2016 03:24:57 Confirmation # [id number] Dictation # [id number] in [facility]
--- NOTE | 2016-04-23 06:32 | DS ---
She is a 80-year-old, her date of 36. She was transferred [facility] to [facility] of her altered mental status. When she came here, she was almost unresponsive, but she was found to have urinary tract infection and for that she was started on IV antibiotics. Her mental status re mained lethargic. She was arousable. She was also seen by Dr. Mary Escobar for Neurology consult for her change of mental status. She has some elevated sodium, but it was corrected with the IV fluids. She was unable to identify the nurse that sees her. Her labs showed she has anemia. Her Hemoglobin 9, hematocrit 27, and she also have BUN 2.5, 1.5, and the sugar 120 were a little bit over the line. ____ BUN and creatinine were increased a little bit. We called the nephrology consult for her, but she was okay. She has paraplegia. She was confined to bed. She has chronic seizures and history a nd they were saying she has multiple sclerosis possibly. She did have dry sacral ulcers on physical examination and that was not infected or there were no new discharge. The patient has been stable. She was more awake. She was able to answer questions and she was on Azactam 1 gram IV q. 8 hours, bu t at that time, she was able to be returned back to the [facility] after we discussed the condition s with Dr. Bauman and to continue the IV at [facility] for 6 more days. FINAL DIAGNOSES: Altered mental status, acute, secondary to urinary tract infection and she did have infection by Providencia Stuartii ____ which grown in the urine. She also has paralysis. She has hyperglycemia, she has multiple sclerosis. She has anemia and she will follow up in the [facility] . Perla Mccarty MD cc: [phone] TT: 04/23/2016 06:31:35 ne
--- NOTE | 2016-04-23 11:13 | PQF SEPSIS ---
This form is a permanent part of the medical record To Perla Mccarty MD Patient came in [facility] with altered mental status, found to be with UTI, Pneumonia. Please clarify if SEPSIS was ruled in or ruled out. Thank you, Clarification of your documentation is requested to better reflect the severity of illness and intensity of treatment of your patient. Indicators present [] Temp < 96.8 or > 100.4 [] WBC count > 12,000/mm3 or <000/mm3 or 10% immature neutrophils [] Heart Rate > 90 [] Respiratory Rate > 20 [] Fever or hypothermia [] Chills [] Positive blood cultures [] Hypotension [] Metabolic acidosis (Elevated lactate level, anion gap or reduced blood pH) [] Acute confusion /Altered Mental Status [] Shock [x] Other: [] Location in the medical record that reflects the above clinical findings: [] Treatment Provided: [] PHYSICIAN'S RESPONSE - sepsis ruled in. Based on your medical judgment of the clinical indicators outlined above, are you treating this patient for a known or suspected: [x] Sepsis / Septicemia Please specify organism if known [] [] SIRS (Systemic Inflammatory Response Syndrome) [] Severe Sepsis (Sepsis with Associated Organ Dysfunction) [] Fever of Unknown Origin [] Other, please indicate: [] [] If Unable to Determine, please check the box, sign and date. Present On Admission (POA) Indicator: [] Present at the time of admission [] Not present at the time of admission [] Clinically Undetermined In responding to this query, please exercise your independent professional judgment. The fact that a question is asked does not imply that any particular answer is desired or expected. Thank you for your clarification on this documentation. If you have any questions please call:[ ] * Thank you, [Marybel Nelson, [facility] ] school cafeteria head cook KACY
== END 2016-04-16 18:50 | DRG 871 ==
LOC: C.ER 18:08 → C.9E 21:12 → C.5T 21:47 → C.6T 04-12 21:36
PROVIDERS: ADMIT Internal Medicine; ATTEND Internal Medicine
PROC: 02HV33Z Insertion of Infusion Device into Superior Vena Cava, Percutaneous Approach (ICD-10-PCS; principal; 2016-04-16)
DX: A41.9 Sepsis, unspecified organism (principal); J18.9 Pneumonia, unspecified organism; N17.9 Acute kidney failure, unspecified; E87.0 Hyperosmolality and hypernatremia; I13.0 Hypertensive heart and chronic kidney disease with heart failure and stage 1 through stage 4 chronic kidney disease, or unspecified chronic kidney disease; C90.00 Multiple myeloma not having achieved remission; L89.159 Pressure ulcer of sacral region, unspecified stage; G82.20 Paraplegia, unspecified; I50.9 Heart failure, unspecified; N13.30 Unspecified hydronephrosis; N39.0 Urinary tract infection, site not specified; J44.0 Chronic obstructive pulmonary disease with (acute) lower respiratory infection; E11.22 Type 2 diabetes mellitus with diabetic chronic kidney disease; G35 Multiple sclerosis; I48.91 Unspecified atrial fibrillation; E66.9 Obesity, unspecified; G40.909 Epilepsy, unspecified, not intractable, without status epilepticus; N18.9 Chronic kidney disease, unspecified; Z87.891 Personal history of nicotine dependence; Z74.01 Bed confinement status; Z86.73 Personal history of transient ischemic attack (TIA), and cerebral infarction without residual deficits; M17.9 Osteoarthritis of knee, unspecified; K59.00 Constipation, unspecified; D64.9 Anemia, unspecified; E86.1 Hypovolemia; Z95.2 Presence of prosthetic heart valve; B96.89 Other specified bacterial agents as the cause of diseases classified elsewhere; H91.90 Unspecified hearing loss, unspecified ear; Z87.01 Personal history of pneumonia (recurrent); Z87.440 Personal history of urinary (tract) infections; E11.65 Type 2 diabetes mellitus with hyperglycemia

== ENCOUNTER 2016-06-04 16:42 | Inpatient (IN) | payer MEDICARE, MEDICAID ==
[2016-06-04 16:42] VITALS: PULSE 75; BMI 44.2
[2016-06-04 17:20] LABS: VENOUS BLOOD GAS BASE EXCESS 6.6 mmol/L (0.0-2.0); VENOUS BLOOD GAS PCO2 87 mmHg (40-60); VENOUS BLOOD PH 7.24 (7.32-7.43)
[2016-06-04] MEDS ORDERED: Sodium Chloride 0.9% 1,000 ML ONE (17:51)
[2016-06-04 17:52] LABS: ABG ALLEN TEST POS; ARTERIAL BLOOD HGB O2 SAT 92.8 % (95.0-98.0); CARBOXYHEMOGLOBIN 2.3 % (0.5-1.5); DRAW SITE RRA; HHB 3.9 % (0.0-5.0)
[2016-06-04 17:52] LABS: POTASSIUM 4.7 mmol/L (3.6-5.2)
[2016-06-04 17:54] LABS: ALB/GLOB RATIO 0.8 (1.0-2.1); TOTAL PROTEIN 6.2 g/dL (6.3-8.3)
[2016-06-04 17:55] LABS: CALCIUM 7.4 mg/dl (8.6-10.4)
[2016-06-04 17:56] LABS: MAGNESIUM 1.7 mg/dL (1.6-2.3)
[2016-06-04 17:57] LABS: EOS # 0.1 K/uL (0.0-0.7); LYMPH # 1.1 K/uL (1.0-4.3); WHITE BLOOD COUNT 5.9 K/uL (4.8-10.8)
[2016-06-04 17:57] LABS: INR 1.1
--- NOTE | 2016-06-04 19:02 | C.PDOC ---
History Of Present Illness Patient is a 80 year old female who was sent by [facility] at 17:00 for altered mental status and low blood pressure since this morning. Patient has been seen in the past for several episodes of urosepsis, CHF, and respiratory failure. Patient was intubated in April and placed in ICU, once patient was stabilized she was extubated and found to have otomastoiditis. Patient was then moved to an acute terminal manager facility for the course of antibiotic treatment. Denies any nausea, vomiting, fever or diarrhea. Time Seen by Provider: 06/04/16 16:48 Chief Complaint (Nursing): Altered Mental Status History Per: Other (residential) History/Exam Limitations: None Onset/Duration Of Symptoms: Hrs (17:00) Onset Of Symptoms: Other (Since AM) Current Symptoms Are (Timing): Still Present Usual Baseline: Unknown Associated Symptoms: Other (Hypotension). denies: Fever, Vomiting, Diarrhea Past Medical History Reviewed: Historical Data, Nursing Documentation, Vital Signs Vital Signs: Last Vital Signs Temp 98.7 F 06/04/16 16:50 Pulse 104 H 06/04/16 19:05 Resp 18 06/04/16 18:13 BP 80/42 L 06/04/16 18:13 Pulse Ox 97 06/04/16 19:38 - Medical History PMH: Arthritis, CHF, COPD, HTN, Pneumonia, Chronic Kidney Disease, Seizures ( LAST SEIZURE 2013) Comment Only: Multiple Sclerosis (? in previous triage) Surgical History: Tonsillectomy - [facility] Procedures ASSISTANCE WITH RESPIRATORY VENTILATION, >96 HRS, CPAP (05/18/15) INJECT STEROID (12/22/13) INJECTION INTO JOINT (12/22/13) INSERTION OF ENDOTRACHEAL AIRWAY INTO TRACHEA, VIA OPENING (04/19/16) INSERTION OF INFUSION DEV INTO SUP VENA CAVA, PERC APPROACH (04/10/16) INTRODUCE OF OTH THERAP SUBST INTO RESP TRACT, VIA OPENING (05/18/15) MAGNETIC RESONANCE IMAGING OF BRAIN AND BRAIN STEM (09/29/13) OCCUPATIONAL THERAPY (10/05/13) PHYSICAL THERAPY NEC (10/05/13) RESPIRATORY VENTILATION, 24-96 CONSECUTIVE HOURS (04/19/16) RESPIRATORY VENTILATION, GREATER THAN 96 CONSECUTIVE HOURS (02/24/16) Family History: States: Unknown Family Hx - Social History Hx Tobacco Use: No Hx Alcohol Use: No Hx Substance Use: No - Immunization History Hx Tetanus Toxoid Vaccination: No Hx Influenza Vaccination: Yes Hx Pneumococcal Vaccination: No Review Of Systems Constitutional: Negative for: Fever Gastrointestinal: Negative for: Nausea, Vomiting, Diarrhea Neurological: Positive for: Altered Mental Status Physical Exam - Physical Exam Appears: Non-toxic, Other (Responsive, afebrile, lethargic) Skin: Normal Color, Warm, Dry, Other (No cellulitis) Head: Atraumatic, Normacephalic Oral Mucosa: Moist Chest: Symmetrical, No Tenderness Cardiovascular: Rhythm Regular (Tachycardic), No Murmur Respiratory: Rales (Right lung), No Rhonchi, No Wheezing, Other (Diminished left breath sounds, no respiratory distress) Gastrointestinal/Abdominal: Soft, No Tenderness, Hernia (Umbilical, reducible), Other (Obese) Extremity: Normal ROM, Other (Bilateral foot drop) Neurological/Psych: Oriented x3, Normal Speech ED Course And Treatment - Laboratory Results Result Diagrams: 06/04/16 19:30 06/04/16 17:08 Lab Interpretation: Abnormal (Severe dehydration with Na150 and BUN 29, pO2 65, pCO2 70 with pH 7.3) ECG Rhythm: Sinus Tachycardia (with low voltage) ECG Interpretation: No Acute Changes O2 Sat by Pulse Oximetry: 97 Pulse Ox Interpretation: Normal - Radiology CXR: Interpreted by [facility] CXR Interpretation: Yes: Other (left pleural effusion increased from 04/23/16) Progress Note: Patient treated with normal saline for dehydration with hypotension. she remeains awake and alert and is responding to questions appropriately. Reevaluation Time: 19:36 Reassessment Condition: Unchanged (Patient remains awake but hypotensive.) - Physician Consult Information Time Consulting Physician Contacted: 18:00 Physician Contacted: Cheo Farnsworth Outcome Of Conversation: Patient to be evaluated for admission in ICU for severe dehydration with hypotension. Case discussed iwth DR Franz who knows the patient and evaluated her in ED. Medical Decision Making Medical Decision Making: Plan: * Blood work * Urinalysis * EKG * CXR * BIPAP * Vapotherm * IV fluids Disposition - Disposition Disposition: HOSPITALIZED Disposition Time: 19:38 Condition: CRITICAL - Clinical Impression Clinical Impression: UTI (urinary tract infection), Dehydration, Hypotension - Scribe Statement The provider has reviewed the documentation as recorded by the Scribe Selvin Saxena All medical record entries made by the Scribe were at my direction and personally dictated by me. I have reviewed the chart and agree that the record accurately reflects my personal performance of the history, physical exam, medical decision making, and the department course for this patient. I have also personally directed, reviewed, and agree with the discharge instructions and disposition.
[2016-06-04 19:33] LABS: RBC URINE 9 /hpf (0-3); RENAL EPITHELIAL < 1 /hpf (0-3); URINE BACTERIA MOD (<OCC); URINE BILIRUBIN NEGATIVE (NEGATIVE); URINE BLOOD 1+ (NEGATIVE); URINE COLOR Yellow (YELLOW); URINE GLUCOSE (UA) NORMAL (Normal); URINE KETONE NEGATIVE (NEGATIVE); URINE LEUKOCYTE ESTERASE 3+ Leu/uL (Negative); URINE PROTEIN 1+ mg/dL (NEGATIVE); URINE UROBILINOGEN NORMAL mg/dL (0.2-1.0); WBC CLUMPS MANY /hpf; WBC URINE 134 /hpf (0-5)
[2016-06-04 19:35] LABS: BASO % 0.6 % (0.0-2.0); EOS % 1.2 % (0.0-4.0); MEAN CELL VOLUME 94.1 fL (81.0-99.0); MEAN CORPUSCULAR HGB CONC 28.7 g/dL (33.0-37.0); MEAN PLATELET VOLUME 8.4 fL (7.2-11.7); MONO # 0.5 K/uL (0.0-0.8); MONO % 8.6 % (0.0-10.0); NRBC % 0.3 % (0.0-2.0); RED CELL DISTRIBUTION WIDTH 23.2 % (11.5-14.5)
[2016-06-04 19:40] LABS: HEMATOCRIT 37.7 % (34.0-47.0)
--- NOTE | 2016-06-04 19:41 | RAD ---
HISTORY: Sepsis Patient COMPARISON: 04/23/2016 FINDINGS: LUNGS: Worsening near complete opacification of the left diane thorax with large loculated left pleural effusion. Patchy right basilar and right infrahilar consolidative changes. PLEURA: As above. CARDIOVASCULAR: Cardiomegaly. OSSEOUS STRUCTURES: Degenerative changes in the spine and shoulders. VISUALIZED UPPER ABDOMEN: Normal. OTHER FINDINGS: None. IMPRESSION: Worsening near complete opacification of the left diane thorax with large loculated left pleural effusion. Patchy right basilar and right infrahilar consolidative changes.
[2016-06-04] MEDS ORDERED: cefTRIAXone IV 1 gm in Dextros 50 ML IVPB STA (19:46)
[2016-06-04] MEDS ORDERED: Sodium Chloride 0.9% 1,000 ML IV ONE (19:47)
[2016-06-04] MEDS ORDERED: cefTRIAXone IV 1 gm in Dextros 50 ML IVPB ONE (20:21)
[2016-06-04 20:45] LABS: VENOUS BLOOD GAS BASE EXCESS 5.9 mmol/L (0.0-2.0); VENOUS BLOOD GAS PCO2 80 mmHg (40-60); VENOUS BLOOD PH 7.26 (7.32-7.43)
--- NOTE | 2016-06-04 23:51 | CP.PCM.HP ---
History of Present Illness - History of Present Illness History of Present Illness: CC: acute onset of lethargy, weakness, hypotension HPI: Patient is a 80 year old female who [facility] at 17:00 for altered mental status and low blood pressure since this morning. Patient has been seen in the past for several episodes of urosepsis, CHF, and respiratory failure. Patient was intubated in April and placed in ICU, once patient was stabilized she was extubated and found to have otomastoiditis. Patient was then moved to an acute group home facility for the course of antibiotic treatment. Denies any nausea, vomiting, fever or diarrhea, pt was treated last time when she was admitted in [facility] and was intubated, he B.P after 2 litres of IV blous is 82 on BIPAP, awake, responsing, no h/o cough, nausea, vomitting, diarrhea. Present on Admission - Present on Admission Any Indicators Present on Admission: No Review of Systems - Review of Systems Systems not reviewed;Unavailable: Acuity of Condition - Constitutional Constitutional: Anorexia, Chills, Fatigue, Fever, Lethargy, Malaise, Weakness - EENT Eyes: absent: As Per HPI, Blind Spots, Blurred Vision, Change in Vision, Decreased Night Vision, Diplopia, Discharge, Dry Eye, Exophthalmos, Floaters, Irritation, Itchy Eyes, Loss of Peripheral Vision, Pain, Photophobia, Requires Corrective Lenses, Sees Flashes, Spots in Vision, Tunnel Vision, Other Visual Disturbances, Loss of Vision, Other Nose/Mouth/Throat: absent: As Per HPI, Epistaxis, Nasal Congestion, Nasal Discharge, Nasal Obstruction, Nasal Trauma, Nose Pain, Post Nasal Drip, Sinus Pain, Sinus Pressure, Bleeding Gums, Change in Voice, Dental Pain, Dry Mouth, Dysphagia, Halitosis, Hoarsness, Lip Swelling, Mouth Lesions, Mouth Pain, Odynophagia, Sore Throat, Throat Swelling, Tongue Swelling, Facial Pain, Neck Pain, Neck Mass, Other - Cardiovascular Cardiovascular: absent: As Per HPI, Acrocyanosis, Chest Pain, Chest Pain at Rest , Chest Pain with Activity, Claudication, Diaphoresis, Dyspnea, Dyspnea on Exertion, Edema, Irregular Heart Rhythm, Pain Radiating to Arm/Neck/Jaw, Leg Edema, Leg Ulcers, Lightheadedness, Orthopnea, Palpitations, Paroxysmal Nocturnal Dyspnea, Pedal Edema, Radiating Pain, Rapid Heart Rate, Slow Heart Rate, Syncope, Other - Respiratory Respiratory: absent: As Per HPI, Cough, Dyspnea, Hemoptysis, Dyspnea on Exertion , Wheezing, Snoring, Stridor, Pain on Inspiration, Chest Congestion, Excessive Mucous Production, Change in Mucous Color, Pain with Coughing, Other - Genitourinary Genitourinary: Urinary Frequency Past Patient History - Infectious Disease Hx of Infectious Diseases: None - Tetanus Immunizations Tetanus Immunization: Unknown - Past Medical History & Family History Past Medical History?: Yes - Past Social History Smoking Status: Never Smoked - CARDIAC Hx Cardiac Disorders: Yes Hx Congestive Heart Failure: Yes Hx Hypertension: Yes Hx Hypotension: Yes - PULMONARY Hx Respiratory Disorders: Yes Hx Chronic Obstructive Pulmonary Disease (COPD): Yes Hx Pneumonia: Yes - NEUROLOGICAL Hx Neurological Disorder: Yes Hx Multiple Sclerosis: Yes (? in previous triage) Hx Seizures: Yes (LAST SEIZURE 2013) - HEENT Hx HEENT Problems: Yes (eyeglasses) Hx Cataracts: Yes (LEFT EYE) - RENAL Hx Chronic Kidney Disease: Yes - ENDOCRINE/METABOLIC Hx Endocrine Disorders: No - HEMATOLOGICAL/ONCOLOGICAL Hx Blood Disorders: No - INTEGUMENTARY Hx Dermatological Problems: Yes (HEALED SACRAL STAGE ONE DECUBITI) Other/Comment: healed sacral wound and healed right hip wound, right 5th toe darkened with hard callous. DRESSING TO LT FOOT - MUSCULOSKELETAL/RHEUMATOLOGICAL Hx Musculoskeletal Disorders: Yes Hx Arthritis: Yes Hx Degenerative Joint Disease: Yes Hx Falls: No - GASTROINTESTINAL Hx Gastrointestinal Disorders: Yes Hx Gastroesophageal Reflux: Yes - GENITOURINARY/GYNECOLOGICAL Hx Genitourinary Disorders: Yes (HYSTERECTOMY) Hx Incontinence: Yes Hx Urinary Tract Infection: Yes Other/Comment: UROSPESIS - PSYCHIATRIC Hx Psychophysiologic Disorder: No Hx Substance Use: No - SURGICAL HISTORY Hx Surgeries: Yes Hx Hysterectomy: Yes Hx Tonsillectomy: Yes - ANESTHESIA Hx Anesthesia: Yes Hx Anesthesia Reactions: No Hx Malignant Hyperthermia: No Meds Allergies/Adverse Reactions: Allergies Allergy/AdvReac Type Severity Reaction Status Date / Time No Known Allergies Allergy Verified 06/04/16 16:59 Physical Exam - Constitutional Appears: No Acute Distress, Chronically Ill - Eye Exam Eye Exam: EOMI, Normal appearance, PERRL Pupil Exam: NORMAL ACCOMODATION, PERRL - ENT Exam ENT Exam: Mucous Membranes Dry - Respiratory Exam Respiratory Exam: Clear to Auscultation Bilateral, NORMAL BREATHING PATTERN - Cardiovascular Exam Cardiovascular Exam: +S1, +S2, Systolic Murmur - GI/Abdominal Exam Additional comments: cannot be examined due to pateint position - Neurological Exam Neurological exam: Abnormal Gait, Alert, Oriented x3 - Skin Skin Exam: Dry Results - Vital Signs Recent Vital Signs: Last Vital Signs Temp 96.8 F L 06/04/16 21:30 Pulse 106 H 06/04/16 22:05 Resp 16 06/04/16 21:01 BP 110/60 06/04/16 21:30 Pulse Ox 93 L 06/04/16 21:01 - Labs Result Diagrams: 06/21/16 06:36 06/21/16 06:36 Labs: Laboratory Results - last 24 hr 06/04/16 20:40 pO2 23 L VBG pH 7.26 L VBG pCO2 80 H* VBG HCO3 27.7 VBG Total CO2 38.4 H VBG O2 Sat (Calc) 40.7 VBG Base Excess 5.9 H VBG Potassium 3.9 Sodium 152.0 H Chloride 120.0 H Glucose 76 Lactate 1.2 Crit Value Called To Coby montiel Crit Value Called By Conrado Crit Value Read Back Y Blood Gas Notified Time 2043 Venous Blood Potassium 3.9 Assessment & Plan (1) UTI (urinary tract infection) Status: Acute (2) Dehydration Status: Acute (3) Hypotension Status: Acute (4) Acute onset sepsis Assessment and Plan: ID consult to rule out systemic infection due to UTI Status: Acute
[2016-06-05] MEDS ORDERED: Sodium Chloride 0.9% 1,000 ML IV SCH (02:45)
[2016-06-05 04:56] LABS: PLATELET COUNT 123 K/uL (130-400)
[2016-06-05 04:57] LABS: POTASSIUM 3.8 mmol/L (3.6-5.2)
[2016-06-05 04:59] LABS: BILIRUBIN,TOTAL 0.5 mg/dL (0.2-1.3)
[2016-06-05 05:00] LABS: ALB/GLOB RATIO 0.8 (1.0-2.1); PHOSPHOROUS 3.4 mg/dL (2.5-4.5); TOTAL PROTEIN 5.2 g/dL (6.3-8.3)
[2016-06-05 05:01] LABS: MAGNESIUM 1.6 mg/dL (1.6-2.3)
[2016-06-05 05:04] LABS: BASO # 0.1 K/uL (0.0-0.2); BASO % 2.1 % (0.0-2.0); EOS # 0.1 K/uL (0.0-0.7); EOS % 2.1 % (0.0-4.0); HEMATOCRIT 33.6 % (34.0-47.0); LYMPH # 0.3 K/uL (1.0-4.3); LYMPH % 7.4 % (20.0-40.0); MEAN CELL VOLUME 93.2 fL (81.0-99.0); MEAN CORPUSCULAR HEMOGLOBIN 26.5 pg (27.0-31.0); MEAN CORPUSCULAR HGB CONC 28.5 g/dL (33.0-37.0); MEAN PLATELET VOLUME 9.1 fL (7.2-11.7); MONO # 0.4 K/uL (0.0-0.8); MONO % 9.6 % (0.0-10.0); NRBC % 0.1 % (0.0-2.0); RED CELL DISTRIBUTION WIDTH 23.1 % (11.5-14.5); WHITE BLOOD COUNT 3.7 K/uL (4.8-10.8)
--- NOTE | 2016-06-05 06:29 | CP.PCM.CON ---
History of Present Illness - History of Present Illness History of Present Illness: Patient sent from retirement with abnormal blood works. History: 80-year-old female with a history of multiple urinary tract infection in the past, heart failure, respiratory failure, intubated in the past multiple times brought in by the ambulance because of the abnormal blood works in the retirement. Patient was also somewhat drowsy, comatose to upon arrival patient wasn't altered mental status. Patient was placed on BiPAP in the emergency room, swelling patient started responding. Currently she is more awake. Opening eyes with the, spleen She's not in any pain, but the distress noted. Review of Systems - Review of Systems Review of Systems: Past medical history: Obesity hypoventilation diabetes hypertension COPD Allergies: No known drug allergy Personal history and history of smoking in the past Recurrent urinary tract infection Review of system noted from the chart. Patient is currently not responding. On ventilator. support ventilation. Moving all 4 extremities. Neck is contracted. Mostly bedridden Past Patient History - Infectious Disease Hx of Infectious Diseases: None - Tetanus Immunizations Tetanus Immunization: Unknown - Past Medical History & Family History Past Medical History?: Yes Pertinent Family History: Past medical history: Obesity hypoventilation diabetes hypertension COPD Allergies: No known drug allergy Personal history and history of smoking in the past Recurrent urinary tract infection Review of system noted from the chart. Patient is currently not responding. On ventilator. support ventilation. Moving all 4 extremities. Neck is contracted. Mostly bedridden - Past Social History Smoking Status: Never Smoked - CARDIAC Hx Cardiac Disorders: Yes Hx Congestive Heart Failure: Yes Hx Hypertension: Yes Hx Hypotension: Yes - PULMONARY Hx Respiratory Disorders: Yes Hx Chronic Obstructive Pulmonary Disease (COPD): Yes Hx Pneumonia: Yes - NEUROLOGICAL Hx Neurological Disorder: Yes Hx Multiple Sclerosis: Yes (? in previous triage) Hx Seizures: Yes (LAST SEIZURE 2013) - HEENT Hx HEENT Problems: Yes (eyeglasses) Hx Cataracts: Yes (LEFT EYE) - RENAL Hx Chronic Kidney Disease: Yes - ENDOCRINE/METABOLIC Hx Endocrine Disorders: No - HEMATOLOGICAL/ONCOLOGICAL Hx Blood Disorders: No - INTEGUMENTARY Hx Dermatological Problems: Yes (HEALED SACRAL STAGE ONE DECUBITI) Other/Comment: healed sacral wound and healed right hip wound, right 5th toe darkened with hard callous. DRESSING TO LT FOOT - MUSCULOSKELETAL/RHEUMATOLOGICAL Hx Musculoskeletal Disorders: Yes Hx Arthritis: Yes Hx Degenerative Joint Disease: Yes Hx Falls: No - GASTROINTESTINAL Hx Gastrointestinal Disorders: Yes Hx Gastroesophageal Reflux: Yes - GENITOURINARY/GYNECOLOGICAL Hx Genitourinary Disorders: Yes (HYSTERECTOMY) Hx Incontinence: Yes Hx Urinary Tract Infection: Yes Other/Comment: UROSPESIS - PSYCHIATRIC Hx Psychophysiologic Disorder: No Hx Substance Use: No - SURGICAL HISTORY Hx Surgeries: Yes Hx Hysterectomy: Yes Hx Tonsillectomy: Yes - ANESTHESIA Hx Anesthesia: Yes Hx Anesthesia Reactions: No Hx Malignant Hyperthermia: No Meds Allergies/Adverse Reactions: Allergies Allergy/AdvReac Type Severity Reaction Status Date / Time No Known Allergies Allergy Verified 06/04/16 16:59 - Medications Medications: Current Medications Sodium Chloride (Sodium Chloride 0.9%) 1,000 mls @ 50 mls/hr IV .Q20H SHARIF Last Admin: 06/05/16 02:45 Dose: 50 mls/hr Pantoprazole Sodium (Protonix Inj) 40 mg IVP DAILY SHARIF Physical Exam - Constitutional Appears: Agitated Additional comments: Patient is somewhat drowsy, sleepy responding easily with the verbal commands. On BiPAP. Moving 4 extremities. Patient is mostly leaning to worse left side. No chest pain. Denies any nausea vomiting, but leg swelling noted Results - Vital Signs Recent Vital Signs: Last Vital Signs Temp 96.8 F L 06/04/16 21:30 Pulse 110 H 06/05/16 05:47 Resp 16 06/04/16 21:01 BP 110/60 06/04/16 21:30 Pulse Ox 93 L 06/04/16 21:01 - Labs Result Diagrams: 06/05/16 04:41 06/05/16 04:41 Labs: Laboratory Results - last 24 hr 06/04/16 06/05/16 20:40 04:41 WBC 3.7 L RBC 3.61 L Hgb 9.6 L Hct 33.6 L MCV 93.2 MCH 26.5 L MCHC 28.5 L RDW 23.1 H Plt Count 123 L D MPV 9.1 Neut % (Auto) 78.8 H Lymph % (Auto) 7.4 L Trinity % (Auto) 9.6 Eos % (Auto) 2.1 Baso % (Auto) 2.1 H Neut # 2.9 Lymph # 0.3 L Trinity # 0.4 Eos # 0.1 Baso # 0.1 pO2 23 L VBG pH 7.26 L VBG pCO2 80 H* VBG HCO3 27.7 VBG Total CO2 38.4 H VBG O2 Sat (Calc) 40.7 VBG Base Excess 5.9 H VBG Potassium 3.9 Sodium 152.0 H 150 H Chloride 120.0 H 112 H Glucose 76 Lactate 1.2 Crit Value Called To Coby montiel Crit Value Called By Conrado Crit Value Read Back Y Blood Gas Notified Time 2043 Potassium 3.8 Carbon Dioxide 29 Anion Gap 13 BUN 26 H Creatinine 1.1 Est GFR ( Amer) 58 Est GFR (Non-Af Amer) 48 Random Glucose 66 Calcium 7.0 L Phosphorus 3.4 Magnesium 1.6 Total Bilirubin 0.5 AST 24 ALT 35 Alkaline Phosphatase 148 H Total Protein 5.2 L Albumin 2.2 L Globulin 2.9 Albumin/Globulin Ratio 0.8 L Venous Blood Potassium 3.9 Assessment & Plan (1) Dehydration Assessment and Plan: Patient with a severe dehydration. Hypernatremia. Acute on chronic respiratory failure on BiPAP. Urinary tract infection likely. We'll continue the BiPAP, respiratory support, bronchial dilators, IV fluids. Glucose monitoring. Poor prognosis. ICU monitoring Status: Acute (2) Hypotension Status: Acute (3) UTI (urinary tract infection) Status: Acute
[2016-06-05] MEDS: Dextrose 5%/0.45% NS 1,000 ML IV SCH ×2 (06:45→20:25)
[2016-06-05] MEDS: Albuterol-Ipratrop 3 mg / 0.5 (3 ml) UD INH SCH ×3 (08:29→20:04)
[2016-06-05 08:56] LABS: ABG ALLEN TEST UNABLE; ARTERIAL BLOOD HGB O2 SAT 95.6 % (95.0-98.0); CARBOXYHEMOGLOBIN 2.4 % (0.5-1.5); DRAW SITE LR; HHB 0.8 % (0.0-5.0); METHEMOGLOBIN 1.2 % (0.0-3.0)
[2016-06-05 08:59] LABS: BASOPHIL 2 % (0-2); NEUTROPHIL 72 % (50-75); TOTAL CELLS COUNTED 100
[2016-06-05] MEDS ORDERED: cefTRIAXone IV 1 gm in Dextros 50 ML IVPB SCH (10:00)
--- NOTE | 2016-06-05 11:03 | CP.CCUPN ---
<Nancy Morocho - Last Filed: 06/05/16 10:59> CCU Subjective - Physician Review Subjective (Free Text): Patient was seen and examined at bedside. Patient is currently on BiPAP 16/ @ 30% RR 8. Blood pressure remains 90s/40-50s. Patient is more awake, in no acute distress. CCU Objective - Vital Signs / Intake & Output Vital Signs (Last 4 hours): Vital Signs Temp Pulse Resp BP Pulse Ox 06/05/16 10:00 93 H 11 L 100 06/05/16 09:59 95 H 11 L 97/46 L 100 06/05/16 09:00 92 H 14 100 06/05/16 08:59 94 H 13 95/42 L 100 06/05/16 08:57 93 H 13 100 06/05/16 08:29 95 H 06/05/16 08:10 94 H 11 L 94 L 06/05/16 08:00 98.1 F 06/05/16 07:00 100 H 14 96 Intake and Output (Last 8hrs): Intake & Output 06/04/16 06/05/16 06/05/16 22:59 06:59 14:59 Intake Total 500 150 200 Output Total 0 0 0 Balance 500 150 200 Weight 253 lb 8.505 oz Intake: Intake, IV Amount 500 150 200 Right Hand 500 150 200 Left Hand 0 0 Oral 0 Output: Urine 0 0 0 Urine, Voided 0 0 0 Other: Voiding Method Diaper # Voids Urine, Voided 1 1 # Bowel Movements 1 1 - Physical Exam Head: Positive for: Atraumatic, Normocephalic Pupils: Positive for: PERRL Extroacular Muscles: Positive for: EOMI Conjunctiva: Positive for: Normal Mouth: Positive for: Moist Mucous Membranes Respiratory/Chest: Positive for: Decreased Breath Sounds Cardiovascular: Positive for: Tachycardic Upper Extremity: Positive for: Normal Inspection, NORMAL PULSES. Negative for: Cyanosis, Edema Lower Extremity: Positive for: Normal Inspection, NORMAL PULSES. Negative for: Edema, CALF TENDERNESS Neurological: Positive for: GCS=15, CN II-XII Intact Skin: Positive for: Warm, Dry Psychiatric: Positive for: Alert, Oriented x 3 - Medications Active Medications: Active Medications Generic Name Dose Route Start Last Admin Trade Name Freq PRN Reason Stop Dose Admin Albuterol/Ipratropium 3 ml 06/05/16 08:00 06/05/16 08:29 Duoneb 3 Mg/0.5 Mg (3 Ml) Ud INH 3 ml RQ6 SHARIF Administration Sodium Chloride 1,000 mls @ 50 mls/hr 06/05/16 02:45 06/05/16 02:45 Sodium Chloride 0.9% IV 50 mls/hr .Q20H SHARIF Administration Ceftriaxone Sodium 50 mls @ 100 mls/hr 06/05/16 10:00 06/05/16 09:36 Rocephin Iv 1 Gm Duplex IVPB 100 mls/hr DAILY SHARIF Administration Dextrose/Sodium Chloride 1,000 mls @ 75 mls/hr 06/05/16 06:45 Dextrose 5%/0.45% Ns 1000 Ml IV .[id number] SHARIF Pantoprazole Sodium 40 mg 06/05/16 10:00 06/05/16 09:36 Protonix Inj IVP 40 mg DAILY SHARIF Administration - Patient Studies Lab Studies: Lab Studies 06/05/16 06/05/16 06/04/16 Range/Units 08:54 04:41 20:40 WBC 3.7 L (4.8-10.8) K/uL RBC 3.61 L (3.80-5.20) Mil/uL Hgb 9.6 L (11.0-16.0) g/dL Hct 33.6 L (34.0-47.0) % MCV 93.2 (81.0-99.0) fL MCH 26.5 L (27.0-31.0) pg MCHC 28.5 L (33.0-37.0) g/dL RDW 23.1 H (11.5-14.5) % Plt Count 123 L D (130-400) K/uL MPV 9.1 (7.2-11.7) fL Neut % (Auto) 78.8 H (50.0-75.0) % Lymph % (Auto) 7.4 L (20.0-40.0) % [place] % (Auto) 9.6 (0.0-10.0) % Eos % (Auto) 2.1 (0.0-4.0) % Baso % (Auto) 2.1 H (0.0-2.0) % Neut # 2.9 (1.8-7.0) K/uL Lymph # 0.3 L (1.0-4.3) K/uL [place] # 0.4 (0.0-0.8) K/uL Eos # 0.1 (0.0-0.7) K/uL Baso # 0.1 (0.0-0.2) K/uL Neutrophils % (Manual) 72 (50-75) % Lymphocytes % (Manual) 21 (20-40) % Monocytes % (Manual) 5 (0-10) % Basophils % (Manual) 2 (0-2) % Platelet Estimate Slightly decreased L (NORMAL) Hypochromasia (manual) Slight Poikilocytosis (manual Slight Anisocytosis (manual) Slight Microcytosis (manual) Slight Tear Drop Cells Slight Ovalocytes Slight Puncture Site Lr pCO2 64 H (35-45) mm/Hg pO2 128 H 23 L (80-100) mm/Hg HCO3 27.4 (21-28) mmol/L ABG pH 7.29 L (7.35-7.45) ABG Total CO2 32.8 H (22-28) mmol/L ABG O2 Saturation 99.2 H (95-98) % ABG Base Excess 3.2 H (-2.0-3.0) mmol/L ABG Hemoglobin 9.1 L (11.7-17.4) g/dL ABG Carboxyhemoglobin 2.4 H (0.5-1.5) % POC ABG HHb (Measured) 0.8 (0.0-5.0) % ABG Methemoglobin 1.2 (0.0-3.0) % Oscar Test Unable VBG pH 7.26 L (7.32-7.43) VBG pCO2 80 H* (40-60) mmHg VBG HCO3 27.7 mmol/L VBG Total CO2 38.4 H (22-28) mmol/L VBG O2 Sat (Calc) 40.7 (40-65) % VBG Base Excess 5.9 H (0.0-2.0) mmol/L VBG Potassium 3.9 (3.6-5.2) mmol/L A-a O2 Difference 77.0 mm/Hg Respiratory Index 0.6 Hgb O2 Saturation 95.6 (95.0-98.0) % Glucose 76 (65-105) mg/dl Lactate 1.2 (0.7-2.1) mmol/L FiO2 40.0 % Inspiratory BiPAP 16 Expiratory BiPAP 6 Crit Value Called To Coby montiel Crit Value Called By Conrado Crit Value Read Back Y Blood Gas Notified Time 2043 Sodium 150 H 152.0 H (132-148) mmol/L Potassium 3.8 (3.6-5.2) mmol/L Chloride 112 H 120.0 H (98-107) mmol/L Carbon Dioxide 29 (22-30) mmol/L Anion Gap 13 (10-20) BUN 26 H (7-17) mg/dL Creatinine 1.1 (0.7-1.2) MG/DL Est GFR ( Amer) 58 Est GFR (Non-Af Amer) 48 Random Glucose 66 (65-105) mg/dL Calcium 7.0 L (8.6-10.4) mg/dl Phosphorus 3.4 (2.5-4.5) mg/dL Magnesium 1.6 (1.6-2.3) mg/dL Total Bilirubin 0.5 (0.2-1.3) mg/dL AST 24 (14-36) U/L ALT 35 (9-52) U/L Alkaline Phosphatase 148 H (38-126) U/L Total Protein 5.2 L (6.3-8.3) g/dL Albumin 2.2 L (3.5-5.0) g/dL Globulin 2.9 (2.2-3.9) gm/dL Albumin/Globulin Ratio 0.8 L (1.0-2.1) Venous Blood Potassium 3.9 (3.6-5.2) mmol/L Laboratory Results - last 24 hr 06/04/16 06/05/16 06/05/16 20:40 04:41 08:54 WBC 3.7 L RBC 3.61 L Hgb 9.6 L Hct 33.6 L MCV 93.2 MCH 26.5 L MCHC 28.5 L RDW 23.1 H Plt Count 123 L D MPV 9.1 Neut % (Auto) 78.8 H Lymph % (Auto) 7.4 L [place] % (Auto) 9.6 Eos % (Auto) 2.1 Baso % (Auto) 2.1 H Neut # 2.9 Lymph # 0.3 L [place] # 0.4 Eos # 0.1 Baso # 0.1 Neutrophils % (Manual) 72 Lymphocytes % (Manual) 21 Monocytes % (Manual) 5 Basophils % (Manual) 2 Platelet Estimate Slightly decreased L Hypochromasia (manual) Slight Poikilocytosis (manual Slight Anisocytosis (manual) Slight Microcytosis (manual) Slight Tear Drop Cells Slight Ovalocytes Slight Puncture Site Lr pCO2 64 H pO2 23 L 128 H HCO3 27.4 ABG pH 7.29 L ABG Total CO2 32.8 H ABG O2 Saturation 99.2 H ABG Base Excess 3.2 H ABG Hemoglobin 9.1 L ABG Carboxyhemoglobin 2.4 H POC ABG HHb (Measured) 0.8 ABG Methemoglobin 1.2 Oscar Test Unable VBG pH 7.26 L VBG pCO2 80 H* VBG HCO3 27.7 VBG Total CO2 38.4 H VBG O2 Sat (Calc) 40.7 VBG Base Excess 5.9 H VBG Potassium 3.9 A-a O2 Difference 77.0 Respiratory Index 0.6 Hgb O2 Saturation 95.6 Sodium 152.0 H 150 H Chloride 120.0 H 112 H Glucose 76 Lactate 1.2 FiO2 40.0 Inspiratory BiPAP 16 Expiratory BiPAP 6 Crit Value Called To Coby montiel Crit Value Called By Conrado Crit Value Read Back Y Blood Gas Notified Time 2043 Potassium 3.8 Carbon Dioxide 29 Anion Gap 13 BUN 26 H Creatinine 1.1 Est GFR ( Amer) 58 Est GFR (Non-Af Amer) 48 Random Glucose 66 Calcium 7.0 L Phosphorus 3.4 Magnesium 1.6 Total Bilirubin 0.5 AST 24 ALT 35 Alkaline Phosphatase 148 H Total Protein 5.2 L Albumin 2.2 L Globulin 2.9 Albumin/Globulin Ratio 0.8 L Venous Blood Potassium 3.9 Critical Care Progress Note - Nutrition Nutrition: Nutrition Category Date Time Status NPO Diet [DIET] Diets 06/05/16 Lunch Active Assessment/Plan - Assessment and Plan (Free Text) Assessment: 80 year old female with PMHx of CHF, DM, COPD, HTN, Respiratory failure, recurrent UTIs presents for AMS and hypotension. Plan: Acute on Chronic Respiratory failure * Initial ABG - hypercapnic respiratory acidosis * Currently on BiPAP 16/6 @ 30% RR 8, satting at 100% * Duonebs Q6H * F/U repeat ABG 12pm Hypernatremia * Na -150 * D5 1/2 NS @ 75 cc/hr - due to episodes of hypoglycemia Hypotension * D5 1/2 NS @ 75 cc/hr UTI * UA: + nitrates, leukocyte esterases * Rocephin 1 gram daily * F/U urine culture Hypoglycemia * D5 1/2 NS @ 75 cc/hr * Due to episodes of hypoglycemia * Continue to monitor Prophylaxis * GI PPX: Protonix 40mg IVP daily * SCDs, no VTE due to thrombocytopenia DW Dr. Jay, Rashawn SANCHEZ, PGY-1 <Daniel Jay M - Last Filed: 06/05/16 18:02> CCU Objective - Vital Signs / Intake & Output Vital Signs (Last 4 hours): Vital Signs Temp Pulse Resp BP Pulse Ox 06/05/16 17:00 107 H 17 100 06/05/16 16:59 106 H 18 97/53 L 99 06/05/16 16:00 97.4 F L 109 H 14 100 06/05/16 15:59 106 H 16 88/41 L 100 06/05/16 15:00 102 H 13 100 06/05/16 14:59 104 H 13 92/47 L 98 06/05/16 14:14 99 H 14 100 06/05/16 14:10 100 H 13 99 Intake and Output (Last 8hrs): Intake & Output 06/05/16 06/05/16 06/05/16 06:59 14:59 22:59 Intake Total 150 550 225 Output Total 0 0 Balance 150 550 225 Weight 253 lb 8.505 oz Intake: Intake, IV Amount 150 550 225 Right Hand 150 550 225 Left Hand 0 Output: Urine 0 0 Urine, Voided 0 0 Other: # Voids Urine, Voided 1 1 # Bowel Movements 1 1 - Medications Active Medications: Active Medications Generic Name Dose Route Start Last Admin Trade Name Freq PRN Reason Stop Dose Admin Albuterol/Ipratropium 3 ml 06/05/16 08:00 06/05/16 13:37 Duoneb 3 Mg/0.5 Mg (3 Ml) Ud INH 3 ml RQ6 SHARIF Administration Ceftriaxone Sodium 50 mls @ 100 mls/hr 06/05/16 10:00 06/05/16 09:36 Rocephin Iv 1 Gm Duplex IVPB 100 mls/hr DAILY SHARIF Administration Dextrose/Sodium Chloride 1,000 mls @ 75 mls/hr 06/05/16 06:45 Dextrose 5%/0.45% Ns 1000 Ml IV .[id number] SHARIF Pantoprazole Sodium 40 mg 06/05/16 10:00 06/05/16 09:36 Protonix Inj IVP 40 mg DAILY SHARIF Administration - Patient Studies Lab Studies: Microbiology Studies 06/04/16 Unknown Urine Culture - Preliminary Urine,Catheterized Gram Negative Jones Lab Studies 06/05/16 06/05/16 06/05/16 Range/Units 12:12 08:54 04:41 WBC 3.7 L (4.8-10.8) K/uL RBC 3.61 L (3.80-5.20) Mil/uL Hgb 9.6 L (11.0-16.0) g/dL Hct 33.6 L (34.0-47.0) % MCV 93.2 (81.0-99.0) fL MCH 26.5 L (27.0-31.0) pg MCHC 28.5 L (33.0-37.0) g/dL RDW 23.1 H (11.5-14.5) % Plt Count 123 L D (130-400) K/uL MPV 9.1 (7.2-11.7) fL Neut % (Auto) 78.8 H (50.0-75.0) % Lymph % (Auto) 7.4 L (20.0-40.0) % [place] % (Auto) 9.6 (0.0-10.0) % Eos % (Auto) 2.1 (0.0-4.0) % Baso % (Auto) 2.1 H (0.0-2.0) % Neut # 2.9 (1.8-7.0) K/uL Lymph # 0.3 L (1.0-4.3) K/uL [place] # 0.4 (0.0-0.8) K/uL Eos # 0.1 (0.0-0.7) K/uL Baso # 0.1 (0.0-0.2) K/uL Neutrophils % (Manual) 72 (50-75) % Lymphocytes % (Manual) 21 (20-40) % Monocytes % (Manual) 5 (0-10) % Basophils % (Manual) 2 (0-2) % Platelet Estimate Slightly decreased L (NORMAL) Hypochromasia (manual) Slight Poikilocytosis (manual Slight Anisocytosis (manual) Slight Microcytosis (manual) Slight Tear Drop Cells Slight Ovalocytes Slight Puncture Site Lr Lr pCO2 58 H 64 H (35-45) mm/Hg pO2 95 128 H (80-100) mm/Hg HCO3 27.9 27.4 (21-28) mmol/L ABG pH 7.33 L 7.29 L (7.35-7.45) ABG Total CO2 32.4 H 32.8 H (22-28) mmol/L ABG O2 Saturation 99.2 H 99.2 H (95-98) % ABG Base Excess 3.8 H 3.2 H (-2.0-3.0) mmol/L ABG Hemoglobin 9.2 L 9.1 L (11.7-17.4) g/dL ABG Carboxyhemoglobin 2.5 H 2.4 H (0.5-1.5) % POC ABG HHb (Measured) 0.8 0.8 (0.0-5.0) % ABG Methemoglobin 1.1 1.2 (0.0-3.0) % Oscar Test Unable Unable VBG pH (7.32-7.43) VBG pCO2 (40-60) mmHg VBG HCO3 mmol/L VBG Total CO2 (22-28) mmol/L VBG O2 Sat (Calc) (40-65) % VBG Base Excess (0.0-2.0) mmol/L VBG Potassium (3.6-5.2) mmol/L A-a O2 Difference 46.0 77.0 mm/Hg Respiratory Index 0.5 0.6 Hgb O2 Saturation 95.5 95.6 (95.0-98.0) % Glucose (65-105) mg/dl Lactate (0.7-2.1) mmol/L FiO2 30.0 40.0 % Inspiratory BiPAP 16 16 Expiratory BiPAP 6 6 Crit Value Called To Crit Value Called By Crit Value Read Back Blood Gas Notified Time Sodium 150 H (132-148) mmol/L Potassium 3.8 (3.6-5.2) mmol/L Chloride 112 H (98-107) mmol/L Carbon Dioxide 29 (22-30) mmol/L Anion Gap 13 (10-20) BUN 26 H (7-17) mg/dL Creatinine 1.1 (0.7-1.2) MG/DL Est GFR ( Amer) 58 Est GFR (Non-Af Amer) 48 Random Glucose 66 (65-105) mg/dL Calcium 7.0 L (8.6-10.4) mg/dl Phosphorus 3.4 (2.5-4.5) mg/dL Magnesium 1.6 (1.6-2.3) mg/dL Total Bilirubin 0.5 (0.2-1.3) mg/dL AST 24 (14-36) U/L ALT 35 (9-52) U/L Alkaline Phosphatase 148 H (38-126) U/L Total Protein 5.2 L (6.3-8.3) g/dL Albumin 2.2 L (3.5-5.0) g/dL Globulin 2.9 (2.2-3.9) gm/dL Albumin/Globulin Ratio 0.8 L (1.0-2.1) Venous Blood Potassium (3.6-5.2) mmol/L 06/04/16 Range/Units 20:40 WBC (4.8-10.8) K/uL RBC (3.80-5.20) Mil/uL Hgb (11.0-16.0) g/dL Hct (34.0-47.0) % MCV (81.0-99.0) fL MCH (27.0-31.0) pg MCHC (33.0-37.0) g/dL RDW (11.5-14.5) % Plt Count (130-400) K/uL MPV (7.2-11.7) fL Neut % (Auto) (50.0-75.0) % Lymph % (Auto) (20.0-40.0) % [place] % (Auto) (0.0-10.0) % Eos % (Auto) (0.0-4.0) % Baso % (Auto) (0.0-2.0) % Neut # (1.8-7.0) K/uL Lymph # (1.0-4.3) K/uL [place] # (0.0-0.8) K/uL Eos # (0.0-0.7) K/uL Baso # (0.0-0.2) K/uL Neutrophils % (Manual) (50-75) % Lymphocytes % (Manual) (20-40) % Monocytes % (Manual) (0-10) % Basophils % (Manual) (0-2) % Platelet Estimate (NORMAL) Hypochromasia (manual) Poikilocytosis (manual Anisocytosis (manual) Microcytosis (manual) Tear Drop Cells Ovalocytes Puncture Site pCO2 (35-45) mm/Hg pO2 23 L (80-100) mm/Hg HCO3 (21-28) mmol/L ABG pH (7.35-7.45) ABG Total CO2 (22-28) mmol/L ABG O2 Saturation (95-98) % ABG Base Excess (-2.0-3.0) mmol/L ABG Hemoglobin (11.7-17.4) g/dL ABG Carboxyhemoglobin (0.5-1.5) % POC ABG HHb (Measured) (0.0-5.0) % ABG Methemoglobin (0.0-3.0) % Oscar Test VBG pH 7.26 L (7.32-7.43) VBG pCO2 80 H* (40-60) mmHg VBG HCO3 27.7 mmol/L VBG Total CO2 38.4 H (22-28) mmol/L VBG O2 Sat (Calc) 40.7 (40-65) % VBG Base Excess 5.9 H (0.0-2.0) mmol/L VBG Potassium 3.9 (3.6-5.2) mmol/L A-a O2 Difference mm/Hg Respiratory Index Hgb O2 Saturation (95.0-98.0) % Glucose 76 (65-105) mg/dl Lactate 1.2 (0.7-2.1) mmol/L FiO2 % Inspiratory BiPAP Expiratory BiPAP Crit Value Called To Coby montiel Crit Value Called By Conrado Crit Value Read Back Y Blood Gas Notified Time 2043 Sodium 152.0 H (132-148) mmol/L Potassium (3.6-5.2) mmol/L Chloride 120.0 H (98-107) mmol/L Carbon Dioxide (22-30) mmol/L Anion Gap (10-20) BUN (7-17) mg/dL Creatinine (0.7-1.2) MG/DL Est GFR ( Amer) Est GFR (Non-Af Amer) Random Glucose (65-105) mg/dL Calcium (8.6-10.4) mg/dl Phosphorus (2.5-4.5) mg/dL Magnesium (1.6-2.3) mg/dL Total Bilirubin (0.2-1.3) mg/dL AST (14-36) U/L ALT (9-52) U/L Alkaline Phosphatase (38-126) U/L Total Protein (6.3-8.3) g/dL Albumin (3.5-5.0) g/dL Globulin (2.2-3.9) gm/dL Albumin/Globulin Ratio (1.0-2.1) Venous Blood Potassium 3.9 (3.6-5.2) mmol/L Laboratory Results - last 24 hr 06/04/16 06/05/16 06/05/16 20:40 04:41 08:54 WBC 3.7 L RBC 3.61 L Hgb 9.6 L Hct 33.6 L MCV 93.2 MCH 26.5 L MCHC 28.5 L RDW 23.1 H Plt Count 123 L D MPV 9.1 Neut % (Auto) 78.8 H Lymph % (Auto) 7.4 L [place] % (Auto) 9.6 Eos % (Auto) 2.1 Baso % (Auto) 2.1 H Neut # 2.9 Lymph # 0.3 L [place] # 0.4 Eos # 0.1 Baso # 0.1 Neutrophils % (Manual) 72 Lymphocytes % (Manual) 21 Monocytes % (Manual) 5 Basophils % (Manual) 2 Platelet Estimate Slightly decreased L Hypochromasia (manual) Slight Poikilocytosis (manual Slight Anisocytosis (manual) Slight Microcytosis (manual) Slight Tear Drop Cells Slight Ovalocytes Slight Puncture Site Lr pCO2 64 H pO2 23 L 128 H HCO3 27.4 ABG pH 7.29 L ABG Total CO2 32.8 H ABG O2 Saturation 99.2 H ABG Base Excess 3.2 H ABG Hemoglobin 9.1 L ABG Carboxyhemoglobin 2.4 H POC ABG HHb (Measured) 0.8 ABG Methemoglobin 1.2 Oscar Test Unable VBG pH 7.26 L VBG pCO2 80 H* VBG HCO3 27.7 VBG Total CO2 38.4 H VBG O2 Sat (Calc) 40.7 VBG Base Excess 5.9 H VBG Potassium 3.9 A-a O2 Difference 77.0 Respiratory Index 0.6 Hgb O2 Saturation 95.6 Sodium 152.0 H 150 H Chloride 120.0 H 112 H Glucose 76 Lactate 1.2 FiO2 40.0 Inspiratory BiPAP 16 Expiratory BiPAP 6 Crit Value Called To Coby montiel Crit Value Called By Conrado Crit Value Read Back Y Blood Gas Notified Time 2043 Potassium 3.8 Carbon Dioxide 29 Anion Gap 13 BUN 26 H Creatinine 1.1 Est GFR ( Amer) 58 Est GFR (Non-Af Amer) 48 Random Glucose 66 Calcium 7.0 L Phosphorus 3.4 Magnesium 1.6 Total Bilirubin 0.5 AST 24 ALT 35 Alkaline Phosphatase 148 H Total Protein 5.2 L Albumin 2.2 L Globulin 2.9 Albumin/Globulin Ratio 0.8 L Venous Blood Potassium 3.9 06/05/16 12:12 WBC RBC Hgb Hct MCV MCH MCHC RDW Plt Count MPV Neut % (Auto) Lymph % (Auto) [place] % (Auto) Eos % (Auto) Baso % (Auto) Neut # Lymph # [place] # Eos # Baso # Neutrophils % (Manual) Lymphocytes % (Manual) Monocytes % (Manual) Basophils % (Manual) Platelet Estimate Hypochromasia (manual) Poikilocytosis (manual Anisocytosis (manual) Microcytosis (manual) Tear Drop Cells Ovalocytes Puncture Site Lr pCO2 58 H pO2 95 HCO3 27.9 ABG pH 7.33 L ABG Total CO2 32.4 H ABG O2 Saturation 99.2 H ABG Base Excess 3.8 H ABG Hemoglobin 9.2 L ABG Carboxyhemoglobin 2.5 H POC ABG HHb (Measured) 0.8 ABG Methemoglobin 1.1 Oscar Test Unable VBG pH VBG pCO2 VBG HCO3 VBG Total CO2 VBG O2 Sat (Calc) VBG Base Excess VBG Potassium A-a O2 Difference 46.0 Respiratory Index 0.5 Hgb O2 Saturation 95.5 Sodium Chloride Glucose Lactate FiO2 30.0 Inspiratory BiPAP 16 Expiratory BiPAP 6 Crit Value Called To Crit Value Called By Crit Value Read Back Blood Gas Notified Time Potassium Carbon Dioxide Anion Gap BUN Creatinine Est GFR ( Amer) Est GFR (Non-Af Amer) Random Glucose Calcium Phosphorus Magnesium Total Bilirubin AST ALT Alkaline Phosphatase Total Protein Albumin Globulin Albumin/Globulin Ratio Venous Blood Potassium Critical Care Progress Note - Nutrition Nutrition: Nutrition Category Date Time Status NPO Diet [DIET] Diets 06/05/16 Lunch Active Attending/Attestation - Attestation I have personally seen and examined this patient.: Yes I have fully participated in the care of the patient.: Yes I have reviewed all pertinent clinical information: Yes Notes (Text): 06/05/16 18:02 Today: , June 05, 2016 The Patient was seen and examined at the bedside, Medical records reviewed, all clinical/lab/hemodynamic/radiographic data were reviewed and management issues were discussed and formulated, Events reviewed Pain issues, skin care, head of the bed elevation, glycemic control were addressed. Agree with above treatment plans as transcribed in Dr. Morocho note
[2016-06-05 12:15] LABS: ABG ALLEN TEST UNABLE; ARTERIAL BLOOD HGB O2 SAT 95.5 % (95.0-98.0); CARBOXYHEMOGLOBIN 2.5 % (0.5-1.5); DRAW SITE LR; HHB 0.8 % (0.0-5.0); METHEMOGLOBIN 1.1 % (0.0-3.0)
[2016-06-05] MEDS: Cefepime IV 2 gm in Dextrose 100 ML IVPB SCH (22:51)
[2016-06-06] MEDS: Albuterol-Ipratrop 3 mg / 0.5 (3 ml) UD INH SCH ×4 (01:25→19:44)
--- NOTE | 2016-06-06 01:55 | CP.PCM.PN ---
Subjective - Date & Time of Evaluation Date of Evaluation: 06/05/16 Time of Evaluation: 09:35 - Subjective Subjective: Patient was seen and examined in ICU at bedside. Patient is currently on BiPAP 16/6 @ 30% RR 8. Blood pressure remains 90s/40-50s. Patient is more awake, in no acute distress. on antibiotics s/p sepsis and shock Objective - Vital Signs/Intake and Output Vital Signs (last 24 hours): Temp Pulse Resp BP Pulse Ox 96.8 F L 112 H 19 92/36 L 100 06/05/16 20:00 06/05/16 22:00 06/05/16 22:00 06/05/16 22:00 06/05/16 22:00 Intake and Output: 06/05/16 06/06/16 18:59 06:59 Intake Total 850 525 Output Total 0 Balance 850 525 - Medications Medications: Current Medications Albuterol/Ipratropium (Duoneb 3 Mg/0.5 Mg (3 Ml) Ud) 3 ml INH RQ6 [facility] Last Admin: 06/06/16 01:25 Dose: 3 ml Dextrose/Sodium Chloride (Dextrose 5%/0.45% Ns 1000 Ml) 1,000 mls @ 75 mls/hr IV .[id number] [facility] Last Admin: 06/05/16 20:25 Dose: 75 mls/hr Azithromycin 500 mg/ Sodium (Chloride) 250 mls @ 250 mls/hr IVPB DAILY [facility] Cefepime HCl (Maxipime Iv 2 Gm Premix) 100 mls @ 200 mls/hr IVPB Q8H SHARIF Stop: 06/10/16 22:31 Last Admin: 06/05/16 22:51 Dose: 200 mls/hr Pantoprazole Sodium (Protonix Inj) 40 mg IVP DAILY [facility] Last Admin: 06/05/16 09:36 Dose: 40 mg - Labs Labs: 06/05/16 04:41 06/05/16 04:41 PT 12.2 SECONDS (9.7-12.2) 06/04/16 18:00 INR 1.1 06/04/16 18:00 APTT 29 SECONDS (21-34) 06/04/16 18:00 - Constitutional Appears: No Acute Distress - Head Exam Head Exam: ATRAUMATIC, NORMAL INSPECTION, NORMOCEPHALIC - Eye Exam Eye Exam: EOMI, Normal appearance, PERRL Pupil Exam: NORMAL ACCOMODATION, PERRL - Respiratory Exam Respiratory Exam: Decreased Breath Sounds, Rales, Rhonchi - Cardiovascular Exam Cardiovascular Exam: REGULAR RHYTHM, +S1, +S2. absent: Murmur - GI/Abdominal Exam GI & Abdominal Exam: Soft, Normal Bowel Sounds. absent: Tenderness Assessment and Plan (1) UTI (urinary tract infection) Status: Acute (2) Dehydration Status: Acute (3) Hypotension Status: Acute (4) Acute onset sepsis Status: Acute
[2016-06-06 05:47] LABS: ABG ALLEN TEST POS; CARBOXYHEMOGLOBIN 2.2 % (0.5-1.5); DRAW SITE RR; HHB 0.7 % (0.0-5.0)
[2016-06-06] MEDS: Cefepime IV 2 gm in Dextrose 100 ML IVPB SCH (05:52)
[2016-06-06 06:22] LABS: CHLORIDE 109 mmol/L (98-107); SODIUM 148 mmol/L (132-148)
[2016-06-06 06:23] LABS: POTASSIUM 3.5 mmol/L (3.6-5.2)
[2016-06-06 06:25] LABS: ALB/GLOB RATIO 0.8 (1.0-2.1); ALKALINE PHOSPHATASE 165 U/L (38-126); AST/SGOT 26 U/L (14-36); BILIRUBIN,TOTAL 0.6 mg/dL (0.2-1.3); BLOOD UREA NITROGEN 23 mg/dL (7-17); CARBON DIOXIDE 29 mmol/L (22-30); GFR AFRICAN-AMERICAN > 60; GLUCOSE,RANDOM 101 mg/dL (65-105); PHOSPHOROUS 3.2 mg/dL (2.5-4.5); TOTAL PROTEIN 5.8 g/dL (6.3-8.3)
[2016-06-06 06:26] LABS: ALT/SGPT 28 U/L (9-52); CALCIUM 7.1 mg/dl (8.6-10.4); MAGNESIUM 1.6 mg/dL (1.6-2.3)
[2016-06-06 06:32] LABS: HEMATOCRIT 39.8 % (34.0-47.0); MEAN CELL VOLUME 91.3 fL (81.0-99.0); MEAN CORPUSCULAR HEMOGLOBIN 26.5 pg (27.0-31.0); MEAN PLATELET VOLUME 8.9 fL (7.2-11.7); RED CELL DISTRIBUTION WIDTH 22.8 % (11.5-14.5); WHITE BLOOD COUNT 3.6 K/uL (4.8-10.8)
--- NOTE | 2016-06-06 08:40 | RAD ---
HISTORY: on BiPAP COMPARISON: 06/04/2016 FINDINGS: LUNGS: Near complete opacification of left hemithorax. Increased pulmonary vascular congestion. PLEURA: Presumed large effusion on the left. Small effusion on the right. CARDIOVASCULAR: Enlarged heart. OSSEOUS STRUCTURES: The osseous structures demonstrate degenerative changes. VISUALIZED UPPER ABDOMEN: Upper abdomen is suboptimally evaluated. OTHER FINDINGS: None. IMPRESSION: Limited study. Large left-sided pleural effusion. Small right-sided pleural effusion.
[2016-06-06] MEDS ORDERED: Azithromycin 500 MG in Sodium Chloride 0.9% 250 ML IVPB SCH (10:00)
[2016-06-06] MEDS ORDERED: Potassium Chloride 20 mEq ER Tab PO ONE (10:00)
[2016-06-06 10:58] LABS: LYMPH # 0.5 K/uL (1.0-4.3); MONO # 0.2 K/uL (0.0-0.8)
--- NOTE | 2016-06-06 10:58 | CP.CCUPN ---
<Nancy Morocho - Last Filed: 06/06/16 13:50> CCU Subjective - Physician Review Subjective (Free Text): Patient was seen and examined at bedside. Patient is currently on 3L NC satting at 100%. Urine cultures revealed + proteus and blood cultures showed staph bacterimia. Patient currently on contact isolation. Dr. Cantrell consulted for antibiotic recommendations. CCU Objective - Vital Signs / Intake & Output Intake and Output (Last 8hrs): Intake & Output 06/05/16 06/06/16 06/06/16 22:59 06:59 14:59 Intake Total 825 1355.0 Output Total 1 Balance 825 1354.0 Weight 255 lb 15.307 oz Intake: Intake, IV Amount 675 725.0 Right Hand 600 725.0 Left Hand 0 Right Hand 75 Oral 150 630 Output: Stool 1 - Physical Exam Head: Positive for: Atraumatic, Normocephalic Pupils: Positive for: PERRL Extroacular Muscles: Positive for: EOMI Conjunctiva: Positive for: Normal Mouth: Positive for: Moist Mucous Membranes Respiratory/Chest: Positive for: Decreased Breath Sounds Cardiovascular: Positive for: Tachycardic Upper Extremity: Positive for: Normal Inspection, NORMAL PULSES. Negative for: Cyanosis, Edema Lower Extremity: Positive for: Normal Inspection, NORMAL PULSES. Negative for: Edema, CALF TENDERNESS Neurological: Positive for: GCS=15, CN II-XII Intact Skin: Positive for: Warm, Dry Psychiatric: Positive for: Alert, Oriented x 3 - Medications Active Medications: Active Medications Generic Name Dose Route Start Last Admin Trade Name Freq PRN Reason Stop Dose Admin Albuterol/Ipratropium 3 ml 06/05/16 08:00 06/06/16 07:45 Duoneb 3 Mg/0.5 Mg (3 Ml) Ud INH 3 ml RQ6 SHARIF Administration Dextrose/Sodium Chloride 1,000 mls @ 75 mls/hr 06/05/16 06:45 06/05/16 20:25 Dextrose 5%/0.45% Ns 1000 Ml IV 75 mls/hr .[id number] SHARIF Administration Azithromycin 500 mg/ Sodium 250 mls @ 250 mls/hr 06/06/16 10:00 Chloride IVPB DAILY SHARIF Cefepime HCl 100 mls @ 200 mls/hr 06/05/16 22:30 06/06/16 05:52 Maxipime Iv 2 Gm Premix IVPB 06/10/16 22:31 200 mls/hr Q8H SHARIF Administration Pantoprazole Sodium 40 mg 06/05/16 10:00 06/05/16 09:36 Protonix Inj IVP 40 mg DAILY SHARIF Administration - Patient Studies Lab Studies: Microbiology Studies 06/04/16 Unknown Urine Culture - Preliminary Urine,Catheterized Gram Negative Jones Lab Studies 06/06/16 06/06/16 06/06/16 Range/Units 06:05 06:00 05:33 WBC 3.6 L (4.8-10.8) K/uL RBC 4.36 (3.80-5.20) Mil/uL Hgb 11.5 (11.0-16.0) g/dL Hct 39.8 (34.0-47.0) % MCV 91.3 (81.0-99.0) fL MCH 26.5 L (27.0-31.0) pg MCHC 29.0 L (33.0-37.0) g/dL RDW 22.8 H (11.5-14.5) % Plt Count 140 (130-400) K/uL MPV 8.9 (7.2-11.7) fL Puncture Site Rr pCO2 67 H (35-45) mm/Hg pO2 99 (80-100) mm/Hg HCO3 28.9 H (21-28) mmol/L ABG pH 7.30 L (7.35-7.45) ABG Total CO2 35.1 H (22-28) mmol/L ABG O2 Saturation 99.3 H (95-98) % ABG Base Excess 5.1 H (-2.0-3.0) mmol/L ABG Hemoglobin 10.4 L (11.7-17.4) g/dL ABG Carboxyhemoglobin 2.2 H (0.5-1.5) % POC ABG HHb (Measured) 0.7 (0.0-5.0) % ABG Methemoglobin 1.0 (0.0-3.0) % Oscar Test Pos A-a O2 Difference mm/Hg Respiratory Index Hgb O2 Saturation 96.0 (95.0-98.0) % Liter Flow 3.0 FiO2 % Inspiratory BiPAP Expiratory BiPAP Sodium 148 (132-148) mmol/L Potassium 3.5 L (3.6-5.2) mmol/L Chloride 109 H (98-107) mmol/L Carbon Dioxide 29 (22-30) mmol/L Anion Gap 14 (10-20) BUN 23 H (7-17) mg/dL Creatinine 1.0 (0.7-1.2) MG/DL Est GFR ( Amer) > 60 Est GFR (Non-Af Amer) 53 Random Glucose 101 (65-105) mg/dL Calcium 7.1 L (8.6-10.4) mg/dl Phosphorus 3.2 (2.5-4.5) mg/dL Magnesium 1.6 (1.6-2.3) mg/dL Total Bilirubin 0.6 (0.2-1.3) mg/dL AST 26 (14-36) U/L ALT 28 (9-52) U/L Alkaline Phosphatase 165 H (38-126) U/L Total Protein 5.8 L (6.3-8.3) g/dL Albumin 2.6 L (3.5-5.0) g/dL Globulin 3.2 (2.2-3.9) gm/dL Albumin/Globulin Ratio 0.8 L (1.0-2.1) 04// Range/Units 12:12 WBC (4.8-10.8) K/uL RBC (3.80-5.20) Mil/uL Hgb (11.0-16.0) g/dL Hct (34.0-47.0) % MCV (81.0-99.0) fL MCH (27.0-31.0) pg MCHC (33.0-37.0) g/dL RDW (11.5-14.5) % Plt Count (130-400) K/uL MPV (7.2-11.7) fL Puncture Site Lr pCO2 58 H (35-45) mm/Hg pO2 95 (80-100) mm/Hg HCO3 27.9 (21-28) mmol/L ABG pH 7.33 L (7.35-7.45) ABG Total CO2 32.4 H (22-28) mmol/L ABG O2 Saturation 99.2 H (95-98) % ABG Base Excess 3.8 H (-2.0-3.0) mmol/L ABG Hemoglobin 9.2 L (11.7-17.4) g/dL ABG Carboxyhemoglobin 2.5 H (0.5-1.5) % POC ABG HHb (Measured) 0.8 (0.0-5.0) % ABG Methemoglobin 1.1 (0.0-3.0) % Oscar Test Unable A-a O2 Difference 46.0 mm/Hg Respiratory Index 0.5 Hgb O2 Saturation 95.5 (95.0-98.0) % Liter Flow FiO2 30.0 % Inspiratory BiPAP 16 Expiratory BiPAP 6 Sodium (132-148) mmol/L Potassium (3.6-5.2) mmol/L Chloride (98-107) mmol/L Carbon Dioxide (22-30) mmol/L Anion Gap (10-20) BUN (7-17) mg/dL Creatinine (0.7-1.2) MG/DL Est GFR ( Amer) Est GFR (Non-Af Amer) Random Glucose (65-105) mg/dL Calcium (8.6-10.4) mg/dl Phosphorus (2.5-4.5) mg/dL Magnesium (1.6-2.3) mg/dL Total Bilirubin (0.2-1.3) mg/dL AST (14-36) U/L ALT (9-52) U/L Alkaline Phosphatase (38-126) U/L Total Protein (6.3-8.3) g/dL Albumin (3.5-5.0) g/dL Globulin (2.2-3.9) gm/dL Albumin/Globulin Ratio (1.0-2.1) Laboratory Results - last 24 hr 06/05/16 06/06/16 06/06/16 12:12 05:33 06:00 WBC 3.6 L RBC 4.36 Hgb 11.5 Hct 39.8 MCV 91.3 MCH 26.5 L MCHC 29.0 L RDW 22.8 H Plt Count 140 MPV 8.9 Puncture Site Lr Rr pCO2 58 H 67 H pO2 95 99 HCO3 27.9 28.9 H ABG pH 7.33 L 7.30 L ABG Total CO2 32.4 H 35.1 H ABG O2 Saturation 99.2 H 99.3 H ABG Base Excess 3.8 H 5.1 H ABG Hemoglobin 9.2 L 10.4 L ABG Carboxyhemoglobin 2.5 H 2.2 H POC ABG HHb (Measured) 0.8 0.7 ABG Methemoglobin 1.1 1.0 Oscar Test Unable Pos A-a O2 Difference 46.0 Respiratory Index 0.5 Hgb O2 Saturation 95.5 96.0 Liter Flow 3.0 FiO2 30.0 Inspiratory BiPAP 16 Expiratory BiPAP 6 Sodium Potassium Chloride Carbon Dioxide Anion Gap BUN Creatinine Est GFR ( Amer) Est GFR (Non-Af Amer) Random Glucose Calcium Phosphorus Magnesium Total Bilirubin AST ALT Alkaline Phosphatase Total Protein Albumin Globulin Albumin/Globulin Ratio 06/06/16 06:05 WBC RBC Hgb Hct MCV MCH MCHC RDW Plt Count MPV Puncture Site pCO2 pO2 HCO3 ABG pH ABG Total CO2 ABG O2 Saturation ABG Base Excess ABG Hemoglobin ABG Carboxyhemoglobin POC ABG HHb (Measured) ABG Methemoglobin Oscar Test A-a O2 Difference Respiratory Index Hgb O2 Saturation Liter Flow FiO2 Inspiratory BiPAP Expiratory BiPAP Sodium 148 Potassium 3.5 L Chloride 109 H Carbon Dioxide 29 Anion Gap 14 BUN 23 H Creatinine 1.0 Est GFR ( Amer) > 60 Est GFR (Non-Af Amer) 53 Random Glucose 101 Calcium 7.1 L Phosphorus 3.2 Magnesium 1.6 Total Bilirubin 0.6 AST 26 ALT 28 Alkaline Phosphatase 165 H Total Protein 5.8 L Albumin 2.6 L Globulin 3.2 Albumin/Globulin Ratio 0.8 L Critical Care Progress Note - Nutrition Nutrition: Nutrition Category Date Time Status NPO Diet [DIET] Diets 06/05/16 Lunch Active Assessment/Plan - Assessment and Plan (Free Text) Assessment: 80 year old female with PMHx of CHF, DM, COPD, HTN, Respiratory failure, recurrent UTIs presents for AMS and hypotension. Plan: Acute on Chronic Respiratory failure * Initial ABG - hypercapnic respiratory acidosis * Currently on BiPAP 16/6 @ 30% RR 8, satting at 100% * Duonebs Q6H * Placed on NC overnight this mornings: ABG: pH 7.30, PCO2 67 * Currently on back on BiPAP 16/6 @ 30% satting at 100% * F/U ABG Bacterimia * Blood cultures x1 + for gram + cocci * Tachycardic * Currently on Azithromycin and Cefepime, given one gram of Vanco * Dr. Cantrell- consulted - pending antibiotic recommendations Hypernatremia * Na -150 * D5 1/2 NS @ 75 cc/hr - due to episodes of hypoglycemia * Resolved Hypotension * D5 1/2 NS @ 75 cc/hr UTI * UA: + nitrates, leukocyte esterases * Rocephin 1 gram daily * Urine culture + proteus * Dr. Cantrell- consulted - pending antibiotic recommendations Hypoglycemia * D5 1/2 NS @ 75 cc/hr * Due to episodes of hypoglycemia * Continue to monitor Prophylaxis * GI PPX: Protonix 40mg IVP daily * SCDs, no VTE due to thrombocytopenia DW Dr. Jay, Rashawn SANCHEZ, PGY-1 <Daniel Jay M - Last Filed: 06/07/16 23:08> CCU Objective - Vital Signs / Intake & Output Vital Signs (Last 4 hours): Vital Signs Pulse Resp BP Pulse Ox 06/07/16 22:41 139 H 21 123/55 L 97 06/07/16 21:25 135 H 06/07/16 19:18 136 H 27 H 107/67 92 L 06/07/16 19:15 133 H 20 78/45 L 72 L Intake and Output (Last 8hrs): Intake & Output 06/07/16 06/07/16 06/08/16 14:59 22:59 06:59 Intake Total 1800 1080 Output Total 0 Balance 1800 1080 Intake: Intake, IV Amount 800 860 Right Hand 800 675 Left Hand 100 Left Hand 10 Right Hand 75 Oral 1000 220 Output: Urine 0 Urine, Voided 0 Stool 0 Urine/Stool Mix 0 Emesis 0 Other: # Voids Urine, Voided 1 2 # Bowel Movements 1 1 - Medications Active Medications: Active Medications Generic Name Dose Route Start Last Admin Trade Name Freq PRN Reason Stop Dose Admin Albuterol/Ipratropium 3 ml 06/05/16 08:00 06/07/16 20:10 Duoneb 3 Mg/0.5 Mg (3 Ml) Ud INH 3 ml RQ6 SHARIF Administration Dextrose/Sodium Chloride 1,000 mls @ 75 mls/hr 06/05/16 06:45 06/07/16 14:46 Dextrose 5%/0.45% Ns 1000 Ml IV 75 mls/hr .[id number] SHARIF Administration Imipenem/Cilastatin Sodium 500 100 mls @ 100 mls/hr 06/06/16 18:00 06/07/16 17: 02 mg/ Sodium Chloride IVPB 100 mls/hr Q8H SHARIF Administration Amikacin Sulfate 500 mg/ 252 mls @ 250 mls/hr 06/07/16 14:30 06/07/16 14:47 Sodium Chloride IVPB 06/08/16 15:31 250 mls/hr Q24H SHARIF Administration Levetiracetam 500 mg/ Sodium 105 mls @ 420 mls/hr 06/07/16 18:30 06/07/16 18:25 Chloride IVPB 420 mls/hr Q12H SHARIF Administration Diltiazem HCl 125 mg/ Dextrose 125 mls @ 5 mls/hr 06/07/16 21:45 06/07/16 22:41 IV 5 mls/hr .Q24H SHARIF Administration Protocol 5 MG/HR Pantoprazole Sodium 40 mg 06/05/16 10:00 06/07/16 10:01 Protonix Inj IVP 40 mg DAILY SHARIF Administration - Patient Studies Lab Studies: Microbiology Studies 06/06/16 16:30 Blood Culture - Preliminary Blood NO GROWTH AFTER 24 HOURS 06/06/16 17:00 Blood Culture - Preliminary Blood NO GROWTH AFTER 24 HOURS 06/04/16 Unknown Urine Culture - Final Urine,Catheterized Proteus Mirabilis Lab Studies 06/07/16 06/07/16 Range/Units 08:20 05:27 WBC 4.3 L (4.8-10.8) K/uL RBC 3.94 (3.80-5.20) Mil/uL Hgb 10.5 L (11.0-16.0) g/dL Hct 35.2 (34.0-47.0) % MCV 89.5 (81.0-99.0) fL MCH 26.7 L (27.0-31.0) pg MCHC 29.9 L (33.0-37.0) g/dL RDW 22.2 H (11.5-14.5) % Plt Count 152 (130-400) K/uL MPV 8.7 (7.2-11.7) fL Neut % (Auto) 76.2 H (50.0-75.0) % Lymph % (Auto) 13.5 L (20.0-40.0) % [place] % (Auto) 8.5 (0.0-10.0) % Eos % (Auto) 1.2 (0.0-4.0) % Baso % (Auto) 0.6 (0.0-2.0) % Neut # 3.3 (1.8-7.0) K/uL Lymph # 0.6 L (1.0-4.3) K/uL [place] # 0.4 (0.0-0.8) K/uL Eos # 0.1 (0.0-0.7) K/uL Baso # 0.0 (0.0-0.2) K/uL Puncture Site R pCO2 52 H (35-45) mm/Hg pO2 74 L (80-100) mm/Hg HCO3 28.0 (21-28) mmol/L ABG pH 7.37 (7.35-7.45) ABG Total CO2 31.7 H (22-28) mmol/L ABG O2 Saturation 97.2 (95-98) % ABG Base Excess 4.0 H (-2.0-3.0) mmol/L ABG Hemoglobin 10.3 L (11.7-17.4) g/dL ABG Carboxyhemoglobin 2.3 H (0.5-1.5) % POC ABG HHb (Measured) 2.7 (0.0-5.0) % ABG Methemoglobin 1.0 (0.0-3.0) % Oscar Test Pos A-a O2 Difference 75.0 mm/Hg Respiratory Index 1.0 Hgb O2 Saturation 94.1 L (95.0-98.0) % FiO2 30.0 % Inspiratory BiPAP 16 Expiratory BiPAP 6 Sodium 148 (132-148) mmol/L Potassium 3.4 L (3.6-5.2) mmol/L Chloride 112 H (98-107) mmol/L Carbon Dioxide 28 (22-30) mmol/L Anion Gap 11 (10-20) BUN 20 H (7-17) mg/dL Creatinine 0.9 (0.7-1.2) MG/DL Est GFR ( Amer) > 60 Est GFR (Non-Af Amer) > 60 Random Glucose 88 (65-105) mg/dL Calcium 6.7 L (8.6-10.4) mg/dl Phosphorus 2.6 (2.5-4.5) mg/dL Magnesium 1.4 L (1.6-2.3) mg/dL Total Bilirubin 0.7 (0.2-1.3) mg/dL AST 25 (14-36) U/L ALT 23 (9-52) U/L Alkaline Phosphatase 136 H (38-126) U/L Total Protein 5.3 L (6.3-8.3) g/dL Albumin 2.2 L (3.5-5.0) g/dL Globulin 3.1 (2.2-3.9) gm/dL Albumin/Globulin Ratio 0.7 L (1.0-2.1) Laboratory Results - last 24 hr 06/07/16 06/07/16 05:27 08:20 WBC 4.3 L RBC 3.94 Hgb 10.5 L Hct 35.2 MCV 89.5 MCH 26.7 L MCHC 29.9 L RDW 22.2 H Plt Count 152 MPV 8.7 Neut % (Auto) 76.2 H Lymph % (Auto) 13.5 L [place] % (Auto) 8.5 Eos % (Auto) 1.2 Baso % (Auto) 0.6 Neut # 3.3 Lymph # 0.6 L [place] # 0.4 Eos # 0.1 Baso # 0.0 Puncture Site R pCO2 52 H pO2 74 L HCO3 28.0 ABG pH 7.37 ABG Total CO2 31.7 H ABG O2 Saturation 97.2 ABG Base Excess 4.0 H ABG Hemoglobin 10.3 L ABG Carboxyhemoglobin 2.3 H POC ABG HHb (Measured) 2.7 ABG Methemoglobin 1.0 Oscar Test Pos A-a O2 Difference 75.0 Respiratory Index 1.0 Hgb O2 Saturation 94.1 L FiO2 30.0 Inspiratory BiPAP 16 Expiratory BiPAP 6 Sodium 148 Potassium 3.4 L Chloride 112 H Carbon Dioxide 28 Anion Gap 11 BUN 20 H Creatinine 0.9 Est GFR ( Amer) > 60 Est GFR (Non-Af Amer) > 60 Random Glucose 88 Calcium 6.7 L Phosphorus 2.6 Magnesium 1.4 L Total Bilirubin 0.7 AST 25 ALT 23 Alkaline Phosphatase 136 H Total Protein 5.3 L Albumin 2.2 L Globulin 3.1 Albumin/Globulin Ratio 0.7 L Critical Care Progress Note - Nutrition Nutrition: Nutrition Category Date Time Status Soft [Dysphagia/Modified Consistency Diet] [DIET] Diets 06/06/16 Dinner Active Attending/Attestation - Attestation I have personally seen and examined this patient.: Yes I have fully participated in the care of the patient.: Yes I have reviewed all pertinent clinical information: Yes Notes (Text): Today: Thursday, June 06, 2016 The Patient was seen and examined at the bedside, Medical records reviewed, all clinical/lab/hemodynamic/radiographic data were reviewed and management issues were discussed and formulated, Events reviewed Pain issues, skin care, head of the bed elevation, glycemic control were addressed. Agree with above treatment plans as transcribed in Dr. Morocho note
--- NOTE | 2016-06-06 14:11 | CP.PCM.CON ---
History of Present Illness - History of Present Illness History of Present Illness: INFECTIOUS DISEASE CONSULTATION;. HPI; 80 year old femaleWITH HISTORY OF COPD, CHF, DIABETES MELLITUS who was sent by detention on 06/04/16 for altered mental status and low blood pressure. Patient has been seen in the past for several episodes of urosepsis, CHF, and respiratory failure. Patient was intubated in April and placed in ICU, once patient was stabilized she was extubated and found to have otomastoiditis. Patient was then moved to LT[facility] for the course of antibiotic iv ROCEPHIN AND zITHROMAX FOR 14 DAYS FOR OTOMASTOIDITIS. PATIENT WAS THEN SUPPOSED TO BE REFERRED [facility] CHOLESTE[facility]OMA PER ENT . Denies any nausea, vomiting, fever or diarrhea.PATIENT DENIES ANY HEADACHES OR LEFT EAR PAIN. Patient received IV fluids for hypotension in the ER and was placed on BiPAP. PATIENT ALSO WAS MARKEDLY DEHYDRATED WITH HYPERNATREMIA,SODIUM 150. X ray chest consistent with LARGE LEFT PLEURAL EFFUSION AND,SMALL RIGHT SIDED PLEURAL EFFUSION .Urine culture TODAY REPORTED positive for PROTEUS-MIRABILIS S-AMIKACIN, R-AZACTAM, CEFEPIME, CEFTRIAXONE, cIPRO Patient presently on IV cefepime and IV Zithromax since yesterday. History obtained from the staff/resident and MARYAN Mcdowell attending the patient. INFECTIOUS DISEASE CONSULTATION THEREFORE REQUESTED BY DR. ORA NGUYEN. PMH; COPD,CHF,DM, MANISH- MASTOIDITIS WITH LEFT CHOLESTEATOMA. FH; NOT OBTAINABLE ALLERGIES; NKA SOCIAL HISTORY; NONSMOKER, NO ALCOHOL OR DRUG ABUSE. MEDS ON iv CEFEPIME, iv zITHROMAX SEE MARS. Review of Systems - Review of Systems Systems not reviewed;Unavailable: Other (PATIENT ON BIPAP.) Past Patient History - Infectious Disease Hx of Infectious Diseases: None - Tetanus Immunizations Tetanus Immunization: Unknown - Past Medical History & Family History Past Medical History?: Yes - Past Social History Smoking Status: Never Smoked - CARDIAC Hx Cardiac Disorders: Yes Hx Congestive Heart Failure: Yes Hx Hypertension: Yes Hx Hypotension: Yes - PULMONARY Hx Respiratory Disorders: Yes Hx Chronic Obstructive Pulmonary Disease (COPD): Yes Hx Pneumonia: Yes - NEUROLOGICAL Hx Neurological Disorder: Yes Hx Multiple Sclerosis: Yes (? in previous triage) Hx Seizures: Yes (LAST SEIZURE 2013) - HEENT Hx HEENT Problems: Yes (eyeglasses) Hx Cataracts: Yes (LEFT EYE) - RENAL Hx Chronic Kidney Disease: Yes - ENDOCRINE/METABOLIC Hx Endocrine Disorders: No - HEMATOLOGICAL/ONCOLOGICAL Hx Blood Disorders: No - INTEGUMENTARY Hx Dermatological Problems: Yes (HEALED SACRAL STAGE ONE DECUBITI) Other/Comment: healed sacral wound and healed right hip wound, right 5th toe darkened with hard callous. DRESSING TO LT FOOT - MUSCULOSKELETAL/RHEUMATOLOGICAL Hx Musculoskeletal Disorders: Yes Hx Arthritis: Yes Hx Degenerative Joint Disease: Yes Hx Falls: No - GASTROINTESTINAL Hx Gastrointestinal Disorders: Yes Hx Gastroesophageal Reflux: Yes - GENITOURINARY/GYNECOLOGICAL Hx Genitourinary Disorders: Yes (HYSTERECTOMY) Hx Incontinence: Yes Hx Urinary Tract Infection: Yes Other/Comment: UROSPESIS - PSYCHIATRIC Hx Psychophysiologic Disorder: No Hx Substance Use: No - SURGICAL HISTORY Hx Surgeries: Yes Hx Hysterectomy: Yes Hx Tonsillectomy: Yes - ANESTHESIA Hx Anesthesia: Yes Hx Anesthesia Reactions: No Hx Malignant Hyperthermia: No Meds Allergies/Adverse Reactions: Allergies Allergy/AdvReac Type Severity Reaction Status Date / Time No Known Allergies Allergy Verified 06/04/16 16:59 - Medications Medications: Current Medications Albuterol/Ipratropium (Duoneb 3 Mg/0.5 Mg (3 Ml) Ud) 3 ml INH RQ6 [facility] Last Admin: 06/06/16 13:29 Dose: 3 ml Dextrose/Sodium Chloride (Dextrose 5%/0.45% Ns 1000 Ml) 1,000 mls @ 75 mls/hr IV .[id number] [facility] Last Admin: 06/05/16 20:25 Dose: 75 mls/hr Azithromycin 500 mg/ Sodium (Chloride) 250 mls @ 250 mls/hr IVPB DAILY [facility] Cefepime HCl (Maxipime Iv 2 Gm Premix) 100 mls @ 200 mls/hr IVPB Q8H [facility] Stop: 06/10/16 22:31 Last Admin: 06/06/16 05:52 Dose: 200 mls/hr Pantoprazole Sodium (Protonix Inj) 40 mg IVP DAILY [facility] Last Admin: 06/05/16 09:36 Dose: 40 mg Physical Exam - Constitutional Appears: No Acute Distress - Head Exam Head Exam: NORMAL INSPECTION - Eye Exam Eye Exam: PERRL. absent: Scleral icterus - ENT Exam ENT Exam: Mucous Membranes Dry - Neck Exam Neck exam: Positive for: Normal Inspection. Negative for: Meningismus (PATIENT NECK TILTED TO THE LEFT SIDE.) - Respiratory Exam Respiratory Exam: Decreased Breath Sounds (LEFT SIDE), Prolonged Expiratory Phase - Cardiovascular Exam Cardiovascular Exam: REGULAR RHYTHM, +S1, +S2 - GI/Abdominal Exam GI & Abdominal Exam: Normal Bowel Sounds, Soft. absent: Tenderness - Extremities Exam Extremities exam: Positive for: pedal edema, pedal pulses present. Negative for : calf tenderness - Neurological Exam Neurological exam: Alert, CN II-XII Intact - Psychiatric Exam Psychiatric exam: Normal Mood - Skin Skin Exam: Normal Color, Warm Results - Vital Signs Recent Vital Signs: Last Vital Signs Temp 98 F 06/06/16 04:00 Pulse 108 H 06/06/16 13:29 Resp 36 H 06/06/16 06:00 BP 107/54 L 06/06/16 05:59 Pulse Ox 98 06/06/16 06:00 - Labs Result Diagrams: 06/06/16 06:00 06/06/16 06:05 Labs: Laboratory Results - last 24 hr 06/06/16 06/06/16 06/06/16 05:33 06:00 06:05 WBC 3.6 L RBC 4.36 Hgb 11.5 Hct 39.8 MCV 91.3 MCH 26.5 L MCHC 29.0 L RDW 22.8 H Plt Count 140 MPV 8.9 Neut % (Auto) 81.0 H Lymph % (Auto) 13.0 L [place] % (Auto) 6.0 Eos % (Auto) 0.0 Baso % (Auto) 0.0 Neut # 2.9 Lymph # 0.5 L [place] # 0.2 Eos # 0.0 Baso # 0.0 Puncture Site Rr pCO2 67 H pO2 99 HCO3 28.9 H ABG pH 7.30 L ABG Total CO2 35.1 H ABG O2 Saturation 99.3 H ABG Base Excess 5.1 H ABG Hemoglobin 10.4 L ABG Carboxyhemoglobin 2.2 H POC ABG HHb (Measured) 0.7 ABG Methemoglobin 1.0 Oscar Test Pos Hgb O2 Saturation 96.0 Liter Flow 3.0 Sodium 148 Potassium 3.5 L Chloride 109 H Carbon Dioxide 29 Anion Gap 14 BUN 23 H Creatinine 1.0 Est GFR ( Amer) > 60 Est GFR (Non-Af Amer) 53 Random Glucose 101 Calcium 7.1 L Phosphorus 3.2 Magnesium 1.6 Total Bilirubin 0.6 AST 26 ALT 28 Alkaline Phosphatase 165 H Total Protein 5.8 L Albumin 2.6 L Globulin 3.2 Albumin/Globulin Ratio 0.8 L - Imaging and Cardiology Chest x-ray Status: Report reviewed by me (06/06/16 large left-sided pleural effusion, small right sided pleural effusion.) Assessment & Plan (1) Acute respiratory failure Status: Acute (2) Acute onset sepsis Status: Acute (3) UTI (urinary tract infection) Status: Acute (4) Dehydration Status: Acute (5) Hypotension Status: Acute (6) COPD (chronic obstructive pulmonary disease) Status: Acute - Assessment and Plan (Free Text) Assessment: IMPRESSION; -ACUTE ONSET SEPSIS/HYPOTENSION - gRAM-POSITIVE BACTEREMIA 1 OUT OF 2 SETS POSITIVE (SCN BY pna FISH ) ? CONTAMINANT - [id number]-RESISTANT PROTEUS MIRABILIS -HYPERNATREMIA-DEHYDRATION. -ACUTE ON CHRONIC RESPIRATORY FAILURE -R/O UNDERLYING PNEUMONIA LEFT SIDE WITH PARAPNEUMONIC EFFUSION. -CHF -DM. -HX MANISH- MASTOIDITIS/CHOLESTEATOMA. PLAN; PANCULTURES ESR,CRP,RH FACTOR BILLIE. PRObnp REPEAT BLOOD CULTURES 2 SETS 15 MINUTES APART TODAY BEFORE INITIATING NEW ANTIBIOTICS. DC iv CEFEPIME DC IV zITHROMAX sTART iv pRIMAXIN 500 MG EVERY 8 HOURLY .. sTART iv AMIKACIN 1000MG X1 DOSE TODAY AFTER REPEAT BLOOD CULTURES 2 SETS 30 MINUTES APART. mONITOR RENAL FUNCTIONS CLOSELY. mONITOR LEUKOPENIA.. CONSIDER THORACENTESIS LEFT PLEURAL EFFUSION R/O EMPYEMA VERSUS PARAPNEUMONIC EFFUSION CASE DISCUSSED WITH THE RESIDENT DR BANDA PER CONVERSATION RESIDENT TO CALL MICRO-AND CHECK FOR SENSITIVITY OF pROTEUS WITH MEREM, COLISTIN,TOBRA MYCIN AND IMIPENEM. STRICT CONTACT PRECAUTIONS AND HANDWASHING. wILL FOLLOW ALONG WITH YOU AND MAKE RECOMMENDATIONS NEEDED.
[2016-06-06 14:21] LABS: ABG ALLEN TEST POS; ARTERIAL BLOOD HGB O2 SAT 94.9 % (95.0-98.0); CARBOXYHEMOGLOBIN 2.2 % (0.5-1.5); DRAW SITE RR; HHB 1.4 % (0.0-5.0); METHEMOGLOBIN 1.5 % (0.0-3.0)
[2016-06-06] MEDS ORDERED: Amikacin Sulfate 1,000 MG in Sodium Chloride 0.9% 250 ML IVPB ONE (14:30)
[2016-06-06] MEDS ORDERED: Meropenem 1 GM in Sodium Chloride 0.9% 100 ML IVPB SCH (16:00)
[2016-06-06] MEDS: Dextrose 5%/0.45% NS 1,000 ML IV SCH ×2 (17:17→22:34)
--- NOTE | 2016-06-06 18:52 | CP.PCM.CON ---
History of Present Illness - History of Present Illness History of Present Illness: Reason for consultation: Pleural effusion 80 year old female who was [facility] by jail for altered mental status and low blood pressure. Patient has been seen in the past for several episodes of urosepsis, CHF, and respiratory failure. Patient was intubated in April and placed in ICU, once patient was stabilized she was extubated and found to have otomastoiditis. Patient was then moved to an acute detention facility for the course of antibiotic treatment. Denies any nausea, vomiting, fever or diarrhea. Patient received IV fluids for hypotension in the ER and was placed on BiPAP. X ray chest consistent with moderate pleural effusion. Urine culture positive for Proteus Review of Systems - Review of Systems Systems not reviewed;Unavailable: Respiratory Distress, Altered Mental Status Past Patient History - Infectious Disease Hx of Infectious Diseases: None - Tetanus Immunizations Tetanus Immunization: Unknown - Past Medical History & Family History Past Medical History?: Yes - Past Social History Smoking Status: Never Smoked - CARDIAC Hx Cardiac Disorders: Yes Hx Congestive Heart Failure: Yes Hx Hypertension: Yes Hx Hypotension: Yes - PULMONARY Hx Respiratory Disorders: Yes Hx Chronic Obstructive Pulmonary Disease (COPD): Yes Hx Pneumonia: Yes - NEUROLOGICAL Hx Neurological Disorder: Yes Hx Multiple Sclerosis: Yes (? in previous triage) Hx Seizures: Yes (LAST SEIZURE 2013) - HEENT Hx HEENT Problems: Yes (eyeglasses) Hx Cataracts: Yes (LEFT EYE) - RENAL Hx Chronic Kidney Disease: Yes - ENDOCRINE/METABOLIC Hx Endocrine Disorders: No - HEMATOLOGICAL/ONCOLOGICAL Hx Blood Disorders: No - INTEGUMENTARY Hx Dermatological Problems: Yes (HEALED SACRAL STAGE ONE DECUBITI) Other/Comment: healed sacral wound and healed right hip wound, right 5th toe darkened with hard callous. DRESSING TO LT FOOT - MUSCULOSKELETAL/RHEUMATOLOGICAL Hx Musculoskeletal Disorders: Yes Hx Arthritis: Yes Hx Degenerative Joint Disease: Yes Hx Falls: No - GASTROINTESTINAL Hx Gastrointestinal Disorders: Yes Hx Gastroesophageal Reflux: Yes - GENITOURINARY/GYNECOLOGICAL Hx Genitourinary Disorders: Yes (HYSTERECTOMY) Hx Incontinence: Yes Hx Urinary Tract Infection: Yes Other/Comment: UROSPESIS - PSYCHIATRIC Hx Psychophysiologic Disorder: No Hx Substance Use: No - SURGICAL HISTORY Hx Surgeries: Yes Hx Hysterectomy: Yes Hx Tonsillectomy: Yes - ANESTHESIA Hx Anesthesia: Yes Hx Anesthesia Reactions: No Hx Malignant Hyperthermia: No Meds Allergies/Adverse Reactions: Allergies Allergy/AdvReac Type Severity Reaction Status Date / Time No Known Allergies Allergy Verified 06/04/16 16:59 - Medications Medications: Current Medications Albuterol/Ipratropium (Duoneb 3 Mg/0.5 Mg (3 Ml) Ud) 3 ml INH RQ6 [facility] Last Admin: 06/06/16 13:29 Dose: 3 ml Dextrose/Sodium Chloride (Dextrose 5%/0.45% Ns 1000 Ml) 1,000 mls @ 75 mls/hr IV .[id number] [facility] Last Admin: 06/06/16 17:17 Dose: 75 mls/hr Imipenem/Cilastatin Sodium 500 (mg/ Sodium Chloride) 100 mls @ 100 mls/hr IVPB Q8H [facility] Last Admin: 06/06/16 17:18 Dose: 100 mls/hr Pantoprazole Sodium (Protonix Inj) 40 mg IVP DAILY [facility] Last Admin: 06/06/16 10:18 Dose: 40 mg Physical Exam - Head Exam Head Exam: ATRAUMATIC, NORMOCEPHALIC - ENT Exam ENT Exam: Mucous Membranes Moist - Neck Exam Neck exam: Positive for: Normal Inspection - Respiratory Exam Respiratory Exam: Decreased Breath Sounds - Cardiovascular Exam Cardiovascular Exam: REGULAR RHYTHM - GI/Abdominal Exam GI & Abdominal Exam: Normal Bowel Sounds, Soft - Extremities Exam Extremities exam: Positive for: pedal edema Results - Vital Signs Recent Vital Signs: Last Vital Signs Temp 98.1 F 06/06/16 17:11 Pulse 126 H 06/06/16 17:00 Resp 16 06/06/16 17:00 BP 108/69 06/06/16 14:59 Pulse Ox 88 L 06/06/16 16:00 - Labs Result Diagrams: 06/06/16 06:00 06/06/16 06:05 Labs: Laboratory Results - last 24 hr 06/06/16 06/06/16 06/06/16 05:33 06:00 06:05 WBC 3.6 L RBC 4.36 Hgb 11.5 Hct 39.8 MCV 91.3 MCH 26.5 L MCHC 29.0 L RDW 22.8 H Plt Count 140 MPV 8.9 Neut % (Auto) 81.0 H Lymph % (Auto) 13.0 L [place] % (Auto) 6.0 Eos % (Auto) 0.0 Baso % (Auto) 0.0 Neut # 2.9 Lymph # 0.5 L [place] # 0.2 Eos # 0.0 Baso # 0.0 Puncture Site Rr pCO2 67 H pO2 99 HCO3 28.9 H ABG pH 7.30 L ABG Total CO2 35.1 H ABG O2 Saturation 99.3 H ABG Base Excess 5.1 H ABG Hemoglobin 10.4 L ABG Carboxyhemoglobin 2.2 H POC ABG HHb (Measured) 0.7 ABG Methemoglobin 1.0 Oscar Test Pos A-a O2 Difference Respiratory Index Hgb O2 Saturation 96.0 Liter Flow 3.0 FiO2 Inspiratory BiPAP Expiratory BiPAP Sodium 148 Potassium 3.5 L Chloride 109 H Carbon Dioxide 29 Anion Gap 14 BUN 23 H Creatinine 1.0 Est GFR ( Amer) > 60 Est GFR (Non-Af Amer) 53 Random Glucose 101 Calcium 7.1 L Phosphorus 3.2 Magnesium 1.6 Total Bilirubin 0.6 AST 26 ALT 28 Alkaline Phosphatase 165 H NT-Pro-B Natriuret Pep Total Protein 5.8 L Albumin 2.6 L Globulin 3.2 Albumin/Globulin Ratio 0.8 L 06/06/16 06/06/16 14:17 17:54 WBC RBC Hgb Hct MCV MCH MCHC RDW Plt Count MPV Neut % (Auto) Lymph % (Auto) [place] % (Auto) Eos % (Auto) Baso % (Auto) Neut # Lymph # [place] # Eos # Baso # Puncture Site Rr pCO2 56 H pO2 81 HCO3 28.9 H ABG pH 7.36 ABG Total CO2 33.3 H ABG O2 Saturation 98.5 H ABG Base Excess 5.1 H ABG Hemoglobin 10.2 L ABG Carboxyhemoglobin 2.2 H POC ABG HHb (Measured) 1.4 ABG Methemoglobin 1.5 Oscar Test Pos A-a O2 Difference 63.0 Respiratory Index 0.8 Hgb O2 Saturation 94.9 L Liter Flow FiO2 30.0 Inspiratory BiPAP 16 Expiratory BiPAP 6 Sodium Potassium Chloride Carbon Dioxide Anion Gap BUN Creatinine Est GFR ( Amer) Est GFR (Non-Af Amer) Random Glucose Calcium Phosphorus Magnesium Total Bilirubin AST ALT Alkaline Phosphatase NT-Pro-B Natriuret Pep 1450 H Total Protein Albumin Globulin Albumin/Globulin Ratio Assessment & Plan (1) Pleural effusion Status: Acute Comment: Chest x-ray consistent with large left pleural effusion. CAT scan of the chest and thoracentesis. Continue BiPAP and nebulizer treatment. Follow- up ABG (2) UTI (urinary tract infection) Status: Acute (3) Pneumonia Status: Resolved
[2016-06-07] MEDS: Albuterol-Ipratrop 3 mg / 0.5 (3 ml) UD INH SCH ×4 (01:09→20:10)
[2016-06-07 05:50] LABS: ABG ALLEN TEST POS; ARTERIAL BLOOD HGB O2 SAT 94.1 % (95.0-98.0); CARBOXYHEMOGLOBIN 2.3 % (0.5-1.5); DRAW SITE R; HHB 2.7 % (0.0-5.0)
[2016-06-07 08:31] LABS: CHLORIDE 112 mmol/L (98-107)
[2016-06-07 08:32] LABS: POTASSIUM 3.4 mmol/L (3.6-5.2); SODIUM 148 mmol/L (132-148)
[2016-06-07 08:34] LABS: BILIRUBIN,TOTAL 0.7 mg/dL (0.2-1.3); GFR AFRICAN-AMERICAN > 60
[2016-06-07 08:35] LABS: ALB/GLOB RATIO 0.7 (1.0-2.1); ALKALINE PHOSPHATASE 136 U/L (38-126); ALT/SGPT 23 U/L (9-52); AST/SGOT 25 U/L (14-36); BLOOD UREA NITROGEN 20 mg/dL (7-17); CALCIUM 6.7 mg/dl (8.6-10.4); CARBON DIOXIDE 28 mmol/L (22-30); GLUCOSE,RANDOM 88 mg/dL (65-105); MAGNESIUM 1.4 mg/dL (1.6-2.3); PHOSPHOROUS 2.6 mg/dL (2.5-4.5); TOTAL PROTEIN 5.3 g/dL (6.3-8.3)
[2016-06-07 08:51] LABS: BASO % 0.6 % (0.0-2.0); EOS # 0.1 K/uL (0.0-0.7); EOS % 1.2 % (0.0-4.0); HEMATOCRIT 35.2 % (34.0-47.0); LYMPH # 0.6 K/uL (1.0-4.3); LYMPH % 13.5 % (20.0-40.0); MEAN CELL VOLUME 89.5 fL (81.0-99.0); MEAN CORPUSCULAR HEMOGLOBIN 26.7 pg (27.0-31.0); MEAN CORPUSCULAR HGB CONC 29.9 g/dL (33.0-37.0); MEAN PLATELET VOLUME 8.7 fL (7.2-11.7); MONO # 0.4 K/uL (0.0-0.8); MONO % 8.5 % (0.0-10.0); NRBC % 0.1 % (0.0-2.0); RED CELL DISTRIBUTION WIDTH 22.2 % (11.5-14.5); WHITE BLOOD COUNT 4.3 K/uL (4.8-10.8)
--- NOTE | 2016-06-07 11:21 | RAD ---
HISTORY: on BiPAP COMPARISON: 06/06/16 FINDINGS: LUNGS: Limited study due to patient rotation to the left. No active pulmonary disease. PLEURA: Near complete opacification of left hemithorax. Improved pulmonary vascular congestion right lung. Mild right basilar atelectasis CARDIOVASCULAR: Normal. OSSEOUS STRUCTURES: No significant abnormalities. VISUALIZED UPPER ABDOMEN: Normal. OTHER FINDINGS: None. IMPRESSION: Limited study. Near-complete opacification left diane thorax. Improved vascular congestion right lung. Mild right basilar atelectasis
--- NOTE | 2016-06-07 14:09 | CP.PCM.PN ---
Subjective - Date & Time of Evaluation Date of Evaluation: 06/06/16 Time of Evaluation: 09:49 - Subjective Subjective: Pt seen and examined, tachcardic, left sided effusion, is for pulmonary consult , on antibiotics, UTI. Objective - Vital Signs/Intake and Output Vital Signs (last 24 hours): Temp Pulse Resp BP Pulse Ox 98.1 F 126 H 22 101/21 L 93 L 06/07/16 08:00 06/07/16 13:01 06/07/16 13:01 06/07/16 13:01 06/07/16 13:01 Intake and Output: 06/07/16 06/07/16 06:59 18:59 Intake Total 775 1550 Output Total 0 Balance 775 1550 - Medications Medications: Current Medications Albuterol/Ipratropium (Duoneb 3 Mg/0.5 Mg (3 Ml) Ud) 3 ml INH RQ6 [facility] Last Admin: 06/07/16 13:54 Dose: 3 ml Dextrose/Sodium Chloride (Dextrose 5%/0.45% Ns 1000 Ml) 1,000 mls @ 75 mls/hr IV .[id number] [facility] Last Admin: 06/06/16 22:34 Dose: 75 mls/hr Imipenem/Cilastatin Sodium 500 (mg/ Sodium Chloride) 100 mls @ 100 mls/hr IVPB Q8H [facility] Last Admin: 06/07/16 10:01 Dose: 100 mls/hr Amikacin Sulfate 500 mg/ (Sodium Chloride) 252 mls @ 250 mls/hr IVPB Q24H [facility] Stop: 06/08/16 15:31 Pantoprazole Sodium (Protonix Inj) 40 mg IVP DAILY [facility] Last Admin: 06/07/16 10:01 Dose: 40 mg - Labs Labs: 06/07/16 08:20 06/07/16 08:20 PT 12.2 SECONDS (9.7-12.2) 06/04/16 18:00 INR 1.1 06/04/16 18:00 APTT 29 SECONDS (21-34) 06/04/16 18:00 - Constitutional Appears: No Acute Distress, Chronically Ill - Head Exam Head Exam: ATRAUMATIC, NORMAL INSPECTION, NORMOCEPHALIC - Eye Exam Eye Exam: EOMI, Normal appearance, PERRL Pupil Exam: NORMAL ACCOMODATION, PERRL - ENT Exam ENT Exam: Mucous Membranes Moist, Normal Exam - Respiratory Exam Respiratory Exam: Decreased Breath Sounds, Rales, Rhonchi, Wheezes - Cardiovascular Exam Cardiovascular Exam: Tachycardia, +S1, +S2, Murmur - GI/Abdominal Exam GI & Abdominal Exam: Soft, Normal Bowel Sounds. absent: Tenderness Assessment and Plan (1) UTI (urinary tract infection) Status: Acute (2) Dehydration Status: Acute (3) Hypotension Status: Acute (4) Acute onset sepsis Status: Acute
[2016-06-07] MEDS: Dextrose 5%/0.45% NS 1,000 ML IV SCH (14:46)
[2016-06-07] MEDS: Amikacin Sulfate 500 MG in Sodium Chloride 0.9% 250 ML IVPB SCH (14:47)
--- NOTE | 2016-06-07 18:23 | CP.CCUPN ---
CCU Subjective - Physician Review Events Since Last Encounter (Free Text): 06/07/16 18:22 Patient is awake and responding. She is complaining of pain. Shaking noted. Patient has a history of seizure disorder, Keppra was not given yet. She is on BiPAP. Able to eat today. Mild tachycardia also noted. Patient was given Cardizem, no improvement at this time. CCU Objective - Vital Signs / Intake & Output Vital Signs (Last 4 hours): Vital Signs Pulse Resp BP Pulse Ox 06/07/16 17:00 142 H 22 100/58 L 89 L 06/07/16 16:40 136 H 23 96 06/07/16 16:06 143 H 06/07/16 16:01 137 H 23 92/53 L 97 06/07/16 16:00 136 H 22 95 06/07/16 15:01 128 H 25 H 91/63 L 93 L 06/07/16 15:00 130 H 21 93 L 06/07/16 14:49 132 H 28 H 88 L hest decreased air entry in the left side. R Intake and Output (Last 8hrs): Intake & Output 06/07/16 06/07/16 06/07/16 06:59 14:59 22:59 Intake Total 700 1800 310 Output Total 0 Balance 700 1800 310 Weight 263 lb 14.293 oz Intake: Intake, IV Amount 700 800 310 Right Hand 700 800 225 Left Hand 10 Right Hand 75 Oral 1000 Output: Urine 0 Urine, Voided 0 Stool 0 Urine/Stool Mix 0 Emesis 0 Other: # Voids Urine, Voided 1 # Bowel Movements 1 - Physical Exam Head: Positive for: Atraumatic, Normocephalic Pupils: Positive for: PERRL Extroacular Muscles: Positive for: EOMI Conjunctiva: Positive for: Normal Mouth: Positive for: Moist Mucous Membranes Respiratory/Chest: Positive for: Decreased Breath Sounds Cardiovascular: Positive for: Tachycardic Upper Extremity: Positive for: Normal Inspection, NORMAL PULSES. Negative for: Cyanosis, Edema Lower Extremity: Positive for: Normal Inspection, NORMAL PULSES. Negative for: Edema, CALF TENDERNESS Neurological: Positive for: GCS=15, CN II-XII Intact Skin: Positive for: Warm, Dry Psychiatric: Positive for: Alert, Oriented x 3 - Medications Active Medications: Active Medications Generic Name Dose Route Start Last Admin Trade Name Freq PRN Reason Stop Dose Admin Albuterol/Ipratropium 3 ml 06/05/16 08:00 06/07/16 13:54 Duoneb 3 Mg/0.5 Mg (3 Ml) Ud INH 3 ml RQ6 [facility] Administration Dextrose/Sodium Chloride 1,000 mls @ 75 mls/hr 06/05/16 06:45 06/07/16 14:46 Dextrose 5%/0.45% Ns 1000 Ml IV 75 mls/hr .[id number] [facility] Administration Imipenem/Cilastatin Sodium 500 100 mls @ 100 mls/hr 06/06/16 18:00 06/07/16 17: 02 mg/ Sodium Chloride IVPB 100 mls/hr Q8H [facility] Administration Amikacin Sulfate 500 mg/ 252 mls @ 250 mls/hr 06/07/16 14:30 06/07/16 14:47 Sodium Chloride IVPB 06/08/16 15:31 250 mls/hr Q24H [facility] Administration Levetiracetam 500 mg/ Sodium 105 mls @ 420 mls/hr 06/07/16 18:30 Chloride IVPB Q12H [facility] Magnesium Sulfate/Dextrose 100 mls @ 300 mls/hr 06/07/16 17:45 06/07/16 18:18 Magnesium Sulfate 1 Gm/100 Ml D5w IVPB 06/07/16 18:34 300 mls/hr Q30M [facility] Administration Pantoprazole Sodium 40 mg 06/05/16 10:00 06/07/16 10:01 Protonix Inj IVP 40 mg DAILY [facility] Administration - Patient Studies Lab Studies: Microbiology Studies 06/04/16 Unknown Urine Culture - Final Urine,Catheterized Proteus Mirabilis 06/04/16 21:37 MRSA Culture (Admit) - Final Nose MRSA NOT DETECTED Lab Studies 06/07/16 06/07/16 06/06/16 Range/Units 08:20 05:27 17:54 WBC 4.3 L (4.8-10.8) K/uL RBC 3.94 (3.80-5.20) Mil/uL Hgb 10.5 L (11.0-16.0) g/dL Hct 35.2 (34.0-47.0) % MCV 89.5 (81.0-99.0) fL MCH 26.7 L (27.0-31.0) pg MCHC 29.9 L (33.0-37.0) g/dL RDW 22.2 H (11.5-14.5) % Plt Count 152 (130-400) K/uL MPV 8.7 (7.2-11.7) fL Neut % (Auto) 76.2 H (50.0-75.0) % Lymph % (Auto) 13.5 L (20.0-40.0) % [place] % (Auto) 8.5 (0.0-10.0) % Eos % (Auto) 1.2 (0.0-4.0) % Baso % (Auto) 0.6 (0.0-2.0) % Neut # 3.3 (1.8-7.0) K/uL Lymph # 0.6 L (1.0-4.3) K/uL [place] # 0.4 (0.0-0.8) K/uL Eos # 0.1 (0.0-0.7) K/uL Baso # 0.0 (0.0-0.2) K/uL Puncture Site R pCO2 52 H (35-45) mm/Hg pO2 74 L (80-100) mm/Hg HCO3 28.0 (21-28) mmol/L ABG pH 7.37 (7.35-7.45) ABG Total CO2 31.7 H (22-28) mmol/L ABG O2 Saturation 97.2 (95-98) % ABG Base Excess 4.0 H (-2.0-3.0) mmol/L ABG Hemoglobin 10.3 L (11.7-17.4) g/dL ABG Carboxyhemoglobin 2.3 H (0.5-1.5) % POC ABG HHb (Measured) 2.7 (0.0-5.0) % ABG Methemoglobin 1.0 (0.0-3.0) % Oscar Test Pos A-a O2 Difference 75.0 mm/Hg Respiratory Index 1.0 Hgb O2 Saturation 94.1 L (95.0-98.0) % FiO2 30.0 % Inspiratory BiPAP 16 Expiratory BiPAP 6 Sodium 148 (132-148) mmol/L Potassium 3.4 L (3.6-5.2) mmol/L Chloride 112 H (98-107) mmol/L Carbon Dioxide 28 (22-30) mmol/L Anion Gap 11 (10-20) BUN 20 H (7-17) mg/dL Creatinine 0.9 (0.7-1.2) MG/DL Est GFR ( Amer) > 60 Est GFR (Non-Af Amer) > 60 Random Glucose 88 (65-105) mg/dL Calcium 6.7 L (8.6-10.4) mg/dl Phosphorus 2.6 (2.5-4.5) mg/dL Magnesium 1.4 L (1.6-2.3) mg/dL Total Bilirubin 0.7 (0.2-1.3) mg/dL AST 25 (14-36) U/L ALT 23 (9-52) U/L Alkaline Phosphatase 136 H (38-126) U/L NT-Pro-B Natriuret Pep 1450 H (0-900) pg/mL Total Protein 5.3 L (6.3-8.3) g/dL Albumin 2.2 L (3.5-5.0) g/dL Globulin 3.1 (2.2-3.9) gm/dL Albumin/Globulin Ratio 0.7 L (1.0-2.1) Laboratory Results - last 24 hr 06/06/16 06/07/16 06/07/16 17:54 05:27 08:20 WBC 4.3 L RBC 3.94 Hgb 10.5 L Hct 35.2 MCV 89.5 MCH 26.7 L MCHC 29.9 L RDW 22.2 H Plt Count 152 MPV 8.7 Neut % (Auto) 76.2 H Lymph % (Auto) 13.5 L [place] % (Auto) 8.5 Eos % (Auto) 1.2 Baso % (Auto) 0.6 Neut # 3.3 Lymph # 0.6 L [place] # 0.4 Eos # 0.1 Baso # 0.0 Puncture Site R pCO2 52 H pO2 74 L HCO3 28.0 ABG pH 7.37 ABG Total CO2 31.7 H ABG O2 Saturation 97.2 ABG Base Excess 4.0 H ABG Hemoglobin 10.3 L ABG Carboxyhemoglobin 2.3 H POC ABG HHb (Measured) 2.7 ABG Methemoglobin 1.0 Oscar Test Pos A-a O2 Difference 75.0 Respiratory Index 1.0 Hgb O2 Saturation 94.1 L FiO2 30.0 Inspiratory BiPAP 16 Expiratory BiPAP 6 Sodium 148 Potassium 3.4 L Chloride 112 H Carbon Dioxide 28 Anion Gap 11 BUN 20 H Creatinine 0.9 Est GFR ( Amer) > 60 Est GFR (Non-Af Amer) > 60 Random Glucose 88 Calcium 6.7 L Phosphorus 2.6 Magnesium 1.4 L Total Bilirubin 0.7 AST 25 ALT 23 Alkaline Phosphatase 136 H NT-Pro-B Natriuret Pep 1450 H Total Protein 5.3 L Albumin 2.2 L Globulin 3.1 Albumin/Globulin Ratio 0.7 L Review of Systems - Review of Systems All systems: reviewed and no additional remarkable complaints except Critical Care Progress Note - Nutrition Nutrition: Nutrition Category Date Time Status Soft [Dysphagia/Modified Consistency Diet] [DIET] Diets 06/06/16 Dinner Active Assessment/Plan (1) Dehydration Assessment and plan: patient with dehydration. Improving at this currently acute respiratory failure with the BiPAP ventilation. Continue the current treatment Current Visit: Yes Status: Acute (2) Hypotension Current Visit: Yes Status: Acute (3) UTI (urinary tract infection) Current Visit: Yes Status: Acute Comment: Broad spectrum antibiotic Fine cultures
[2016-06-07] MEDS: levETIRAcetam 500 MG in Sodium Chloride 0.9% 100 ML IVPB SCH (18:25)
[2016-06-07] MEDS ORDERED: Sodium Chloride 0.9% 500 ML IV SCH (19:30)
--- NOTE | 2016-06-07 20:27 | CP.PCM.PN ---
Subjective - Date & Time of Evaluation Date of Evaluation: 06/07/16 Time of Evaluation: 20:30 - Subjective Subjective: CHIEF COMPLAINTS TODAY : AFEBRILE, awake,DYSPNEIC ON BIPAP c/o pain generalized. Tachycardic ROS. HEENT : N.head tilted to the left Resp : No cough, wheezing ,pleuritic CP ,or hemoptysis Cardio : No anginal CP, PND, orthopnea, TACHYCARDIC GI : No abd.pain, n/v ,diarrhea or GI bleeding . [employer] : No headache, vertigo, focal deficit. Musculoskel : No joint swelling , Derm : No rash Psych : Normal affect. Ext : No swelling ,calf pain PE. Pt. is alert awake in no distress. V.S As noted in the chart Head ,ear nose,throat and eyes : Normal. Neck : Supple with normal carotids. Lungs: DIMINISHED BREATH SOUNDS BILATERALLY Heart : S1 & S2 normal with S4. No murmur.TACHYCARDIC Abd : Soft non tender with normal bowel sounds. Neuro : Moves all ext. with no localized deficit. Ext : + EDEMA with intact pulses.Non tender calves Derm : No rashes or decubitus ulcer. LABS/RADIOLOGY: REVIEWED BLOOD CULTURES 1;2 SETS +VE SCN URINE CULTURE +VE PROTEUS MIRABILIS -MDR ASSESSMENT/PLAN : IMPRESSION; -ACUTE ONSET SEPSIS/HYPOTENSION - gRAM-POSITIVE BACTEREMIA 1 OUT OF 2 SETS POSITIVE (SCN BY pna FISH ) ? CONTAMINANT - [id number]-[id number]-RESISTANT PROTEUS MIRABILIS -HYPERNATREMIA-DEHYDRATION. -ACUTE ON CHRONIC RESPIRATORY FAILURE -R/O UNDERLYING PNEUMONIA LEFT SIDE WITH PARAPNEUMONIC EFFUSION. -CHF -DM. -HX MANISH- MASTOIDITIS/CHOLESTEATOMA. PLAN; REPEAT BLOOD CULTURES 2 SETS 15 MINUTES APART TODAY BEFORE INITIATING NEW ANTIBIOTICS. ON iv pRIMAXIN 500 MG EVERY 8 HOURLY 4.. ON iv AMIKACIN 500MG IVPB TODAY 06/07/16 F/U WITH 500MG AMIKACIN IN A.M..06/08/16 mONITOR RENAL FUNCTIONS CLOSELY. mONITOR LEUKOPENIA.. CONSIDER THORACENTESIS LEFT PLEURAL EFFUSION R/O EMPYEMA VERSUS PARAPNEUMONIC EFFUSION CONTACT PRECAUTIONS -GOWNS AND GLOVES Objective - Vital Signs/Intake and Output Vital Signs (last 24 hours): Temp Pulse Resp BP Pulse Ox 98.1 F 136 H 27 H 107/67 92 L 06/07/16 08:00 06/07/16 19:18 06/07/16 19:18 06/07/16 19:18 06/07/16 19:18 Intake and Output: 06/07/16 06/08/16 18:59 06:59 Intake Total 2485 395 Output Total 0 Balance 2485 395 - Medications Medications: Current Medications Albuterol/Ipratropium (Duoneb 3 Mg/0.5 Mg (3 Ml) Ud) 3 ml INH RQ6 [facility] Last Admin: 06/07/16 20:10 Dose: 3 ml Dextrose/Sodium Chloride (Dextrose 5%/0.45% Ns 1000 Ml) 1,000 mls @ 75 mls/hr IV .[id number] [facility] Last Admin: 06/07/16 14:46 Dose: 75 mls/hr Imipenem/Cilastatin Sodium 500 (mg/ Sodium Chloride) 100 mls @ 100 mls/hr IVPB Q8H [facility] Last Admin: 06/07/16 17:02 Dose: 100 mls/hr Amikacin Sulfate 500 mg/ (Sodium Chloride) 252 mls @ 250 mls/hr IVPB Q24H [facility] Stop: 06/08/16 15:31 Last Admin: 06/07/16 14:47 Dose: 250 mls/hr Levetiracetam 500 mg/ Sodium (Chloride) 105 mls @ 420 mls/hr IVPB Q12H [facility] Last Admin: 06/07/16 18:25 Dose: 420 mls/hr Sodium Chloride (Sodium Chloride 0.9%) 500 mls @ 150 mls/hr IV .[id number] [facility] Stop: 06/07/16 22:49 Last Admin: 06/07/16 20:10 Dose: 150 mls/hr Pantoprazole Sodium (Protonix Inj) 40 mg IVP DAILY [facility] Last Admin: 06/07/16 10:01 Dose: 40 mg - Labs Labs: 06/07/16 08:20 06/07/16 08:20 PT 12.2 SECONDS (9.7-12.2) 06/04/16 18:00 INR 1.1 06/04/16 18:00 APTT 29 SECONDS (21-34) 06/04/16 18:00 Assessment and Plan (1) Acute respiratory failure Status: Acute (2) Acute onset sepsis Status: Acute (3) UTI (urinary tract infection) Status: Acute (4) Dehydration Status: Acute (5) Hypotension Status: Acute (6) COPD (chronic obstructive pulmonary disease) Status: Acute
[2016-06-08] MEDS: Albuterol-Ipratrop 3 mg / 0.5 (3 ml) UD INH SCH ×4 (01:13→20:15)
[2016-06-08] MEDS: Dextrose 5%/0.45% NS 1,000 ML IV SCH ×2 (01:30→07:06)
[2016-06-08] MEDS: levETIRAcetam 500 MG in Sodium Chloride 0.9% 100 ML IVPB SCH ×2 (05:38→18:34)
[2016-06-08 06:34] LABS: EOS # 0.1 K/uL (0.0-0.7); LYMPH # 1.2 K/uL (1.0-4.3); MEAN CORPUSCULAR HGB CONC 30.1 g/dL (33.0-37.0); MONO # 0.6 K/uL (0.0-0.8); NRBC % 0.2 % (0.0-2.0)
[2016-06-08 06:54] LABS: BASO % 0.4 % (0.0-2.0); EOS % 1.6 % (0.0-4.0); HEMATOCRIT 36.1 % (34.0-47.0); MEAN CELL VOLUME 88.7 fL (81.0-99.0); MEAN CORPUSCULAR HEMOGLOBIN 26.7 pg (27.0-31.0); MONO % 8.8 % (0.0-10.0); RED CELL DISTRIBUTION WIDTH 22.7 % (11.5-14.5); WHITE BLOOD COUNT 6.8 K/uL (4.8-10.8)
[2016-06-08 06:56] LABS: POTASSIUM 3.3 mmol/L (3.6-5.2)
[2016-06-08 06:58] LABS: BILIRUBIN,TOTAL 0.7 mg/dL (0.2-1.3)
[2016-06-08 06:59] LABS: ALB/GLOB RATIO 0.7 (1.0-2.1); CALCIUM 6.3 mg/dl (8.6-10.4); PHOSPHOROUS 2.5 mg/dL (2.5-4.5); TOTAL PROTEIN 5.2 g/dL (6.3-8.3)
[2016-06-08 07:00] LABS: MAGNESIUM 1.7 mg/dL (1.6-2.3)
[2016-06-08] MEDS ORDERED: Potassium Chloride 20 mEq/15 ml LIQ UD PO ONE (08:08)
--- NOTE | 2016-06-08 11:37 | CP.CCUPN ---
CCU Subjective - Physician Review Events Since Last Encounter (Free Text): 06/08/16 11:35 Patient now is more awake and responding. Comfortable. Improvement in tachycardia noted. Saturation is okay. Patient is awake. CCU Objective - Vital Signs / Intake & Output Vital Signs (Last 4 hours): Vital Signs Temp Pulse Resp BP Pulse Ox 06/08/16 10:23 111 H 22 100 06/08/16 10:00 112 H 22 101/51 L 100 06/08/16 09:00 91 H 14 104/34 L 100 06/08/16 08:00 97.7 F 97 H 12 95/41 L 100 Intake and Output (Last 8hrs): Intake & Output 06/07/16 06/08/16 06/08/16 22:59 06:59 14:59 Intake Total 1235 950 115 Balance 1235 950 115 Weight 270 lb 4.587 oz Intake: Intake, IV Amount 1015 950 115 Right Hand 675 200 Left Hand 255 750 115 Left Hand 10 Right Hand 75 Oral 220 Other: # Voids Urine, Voided 2 5 1 # Bowel Movements 1 - Physical Exam Narrative Physical Exam (Free Text): 06/08/16 11:36 Chest good air entry bilaterally regular heart sound. Abdomen soft. Pedal edema bilaterally Head: Positive for: Atraumatic, Normocephalic Pupils: Positive for: PERRL Extroacular Muscles: Positive for: EOMI Conjunctiva: Positive for: Normal Mouth: Positive for: Moist Mucous Membranes Respiratory/Chest: Positive for: Decreased Breath Sounds Cardiovascular: Positive for: Tachycardic Upper Extremity: Positive for: Normal Inspection, NORMAL PULSES. Negative for: Cyanosis, Edema Lower Extremity: Positive for: Normal Inspection, NORMAL PULSES. Negative for: Edema, CALF TENDERNESS Neurological: Positive for: GCS=15, CN II-XII Intact Skin: Positive for: Warm, Dry Psychiatric: Positive for: Alert, Oriented x 3 - Medications Active Medications: Active Medications Generic Name Dose Route Start Last Admin Trade Name Freq PRN Reason Stop Dose Admin Albuterol/Ipratropium 3 ml 06/05/16 08:00 06/08/16 07:27 Duoneb 3 Mg/0.5 Mg (3 Ml) Ud INH 3 ml RQ6 SHAR[facility] Administration Imipenem/Cilastatin Sodium 500 100 mls @ 100 mls/hr 06/06/16 18:00 06/08/16 09: 38 mg/ Sodium Chloride IVPB 100 mls/hr Q8H [facility] Administration Amikacin Sulfate 500 mg/ 252 mls @ 250 mls/hr 06/07/16 14:30 06/07/16 14:47 Sodium Chloride IVPB 06/08/16 15:31 250 mls/hr Q24H [facility] Administration Levetiracetam 500 mg/ Sodium 105 mls @ 420 mls/hr 06/07/16 18:30 06/08/16 05:38 Chloride IVPB 420 mls/hr Q12H [facility] Administration Diltiazem HCl 125 mg/ Dextrose 125 mls @ 5 mls/hr 06/07/16 21:45 06/08/16 10:00 IV 15 mg/hr .Q24H [facility] Titration Protocol 5 MG/HR Pantoprazole Sodium 40 mg 06/05/16 10:00 06/08/16 09:38 Protonix Inj IVP 40 mg DAILY SH[facility] Administration - Patient Studies Lab Studies: Microbiology Studies 06/06/16 16:30 Blood Culture - Preliminary Blood NO GROWTH AFTER 24 HOURS 06/06/16 17:00 Blood Culture - Preliminary Blood NO GROWTH AFTER 24 HOURS 06/04/16 Unknown Urine Culture - Final Urine,Catheterized Proteus Mirabilis Lab Studies 06/08/16 Range/Units 06:29 WBC 6.8 D (4.8-10.8) K/uL RBC 4.07 (3.80-5.20) Mil/uL Hgb 10.9 L (11.0-16.0) g/dL Hct 36.1 (34.0-47.0) % MCV 88.7 (81.0-99.0) fL MCH 26.7 L (27.0-31.0) pg MCHC 30.1 L (33.0-37.0) g/dL RDW 22.7 H (11.5-14.5) % Plt Count 197 (130-400) K/uL MPV 9.0 (7.2-11.7) fL Neut % (Auto) 72.2 (50.0-75.0) % Lymph % (Auto) 17.0 L (20.0-40.0) % Weston % (Auto) 8.8 (0.0-10.0) % Eos % (Auto) 1.6 (0.0-4.0) % Baso % (Auto) 0.4 (0.0-2.0) % Neut # 4.9 (1.8-7.0) K/uL Lymph # 1.2 (1.0-4.3) K/uL Weston # 0.6 (0.0-0.8) K/uL Eos # 0.1 (0.0-0.7) K/uL Baso # 0.0 (0.0-0.2) K/uL Sodium 145 (132-148) mmol/L Potassium 3.3 L (3.6-5.2) mmol/L Chloride 111 H (98-107) mmol/L Carbon Dioxide 27 (22-30) mmol/L Anion Gap 10 (10-20) BUN 20 H (7-17) mg/dL Creatinine 1.1 (0.7-1.2) MG/DL Est GFR ( Amer) 58 Est GFR (Non-Af Amer) 48 Random Glucose 101 (65-105) mg/dL Calcium 6.3 L (8.6-10.4) mg/dl Phosphorus 2.5 (2.5-4.5) mg/dL Magnesium 1.7 (1.6-2.3) mg/dL Total Bilirubin 0.7 (0.2-1.3) mg/dL AST 22 (14-36) U/L ALT 26 (9-52) U/L Alkaline Phosphatase 145 H (38-126) U/L Total Protein 5.2 L (6.3-8.3) g/dL Albumin 2.2 L (3.5-5.0) g/dL Globulin 3.0 (2.2-3.9) gm/dL Albumin/Globulin Ratio 0.7 L (1.0-2.1) Laboratory Results - last 24 hr 06/08/16 06:29 WBC 6.8 D RBC 4.07 Hgb 10.9 L Hct 36.1 MCV 88.7 MCH 26.7 L MCHC 30.1 L RDW 22.7 H Plt Count 197 MPV 9.0 Neut % (Auto) 72.2 Lymph % (Auto) 17.0 L Weston % (Auto) 8.8 Eos % (Auto) 1.6 Baso % (Auto) 0.4 Neut # 4.9 Lymph # 1.2 Weston # 0.6 Eos # 0.1 Baso # 0.0 Sodium 145 Potassium 3.3 L Chloride 111 H Carbon Dioxide 27 Anion Gap 10 BUN 20 H Creatinine 1.1 Est GFR ( Amer) 58 Est GFR (Non-Af Amer) 48 Random Glucose 101 Calcium 6.3 L Phosphorus 2.5 Magnesium 1.7 Total Bilirubin 0.7 AST 22 ALT 26 Alkaline Phosphatase 145 H Total Protein 5.2 L Albumin 2.2 L Globulin 3.0 Albumin/Globulin Ratio 0.7 L Review of Systems - Review of Systems Review of Systems: Patient is complaining of some pain on and off. Critical Care Progress Note - Nutrition Nutrition: Nutrition Category Date Time Status Soft [Dysphagia/Modified Consistency Diet] [DIET] Diets 06/06/16 Dinner Active Assessment/Plan (1) Dehydration Assessment and plan: patient with dehydration. Improving at this currently acute respiratory failure with the BiPAP ventilation. Continue the current treatment Improvement in blood pressure. Continue the current treatment. Transfer to floor Current Visit: Yes Status: Acute (2) Hypotension Current Visit: Yes Status: Acute (3) UTI (urinary tract infection) Current Visit: Yes Status: Acute Comment: Broad spectrum antibiotic Fine cultures
[2016-06-08] MEDS: Amikacin Sulfate 500 MG in Sodium Chloride 0.9% 250 ML IVPB SCH (14:54)
--- NOTE | 2016-06-08 16:29 | CP.PCM.PN ---
Subjective - Date & Time of Evaluation Date of Evaluation: 06/08/16 Time of Evaluation: 16:20 - Subjective Subjective: Patient seen and examined in the intensive care unit. Much more awake and responsive Off BiPAP in no respiratory distress Afebrile Objective - Vital Signs/Intake and Output Vital Signs (last 24 hours): Temp Pulse Resp BP Pulse Ox 97.7 F 99 H 13 86/47 L 100 06/08/16 08:00 06/08/16 16:00 06/08/16 16:00 06/08/16 16:00 06/08/16 16:00 Intake and Output: 06/08/16 06/08/16 06:59 18:59 Intake Total 1500 1140 Balance 1500 1140 - Medications Medications: Current Medications Albuterol/Ipratropium (Duoneb 3 Mg/0.5 Mg (3 Ml) Ud) 3 ml INH RQ6 [facility] Last Admin: 06/08/16 14:21 Dose: 3 ml Diltiazem HCl (Cardizem) 30 mg PO Q6H [facility] Last Admin: 06/08/16 16:27 Dose: 30 mg Imipenem/Cilastatin Sodium 500 (mg/ Sodium Chloride) 100 mls @ 100 mls/hr IVPB Q8H [facility] Last Admin: 06/08/16 09:38 Dose: 100 mls/hr Levetiracetam 500 mg/ Sodium (Chloride) 105 mls @ 420 mls/hr IVPB Q12H [facility] Last Admin: 06/08/16 05:38 Dose: 420 mls/hr Pantoprazole Sodium (Protonix Inj) 40 mg IVP DAILY [facility] Last Admin: 06/08/16 09:38 Dose: 40 mg - Labs Labs: 06/08/16 06:29 06/08/16 06:29 PT 12.2 SECONDS (9.7-12.2) 06/04/16 18:00 INR 1.1 06/04/16 18:00 APTT 29 SECONDS (21-34) 06/04/16 18:00 - Head Exam Head Exam: ATRAUMATIC, NORMOCEPHALIC - Neck Exam Neck Exam: Normal Inspection - Respiratory Exam Respiratory Exam: Decreased Breath Sounds - Cardiovascular Exam Cardiovascular Exam: REGULAR RHYTHM - GI/Abdominal Exam GI & Abdominal Exam: Soft, Normal Bowel Sounds - Extremities Exam Extremities Exam: Pedal Edema Assessment and Plan (1) Pleural effusion Assessment & Plan: Thoracentesis by IR Off BiPAP Continue antibiotics and present treatment For transfer to floor Status: Acute (2) UTI (urinary tract infection) Status: Acute (3) Pneumonia Status: Resolved
--- NOTE | 2016-06-08 23:24 | CP.PCM.PN ---
Subjective - Date & Time of Evaluation Date of Evaluation: 06/07/16 Time of Evaluation: 09:53 - Subjective Subjective: Patient seen and examined at bedside, she is awake , alert and responding.She is complaining of pain.Shaking noted.Patient has a history of seizure disorder, Keppra was not given yet.She is on BiPAP.Able to eat today.Mild tachycardia also noted.Patient was given Cardizem, no improvement at this time Objective - Vital Signs/Intake and Output Vital Signs (last 24 hours): Temp Pulse Resp BP Pulse Ox 97.9 F 108 H 19 91/56 L 100 06/08/16 20:00 06/08/16 23:01 06/08/16 23:01 06/08/16 23:01 06/08/16 23:01 Intake and Output: 06/08/16 06/09/16 18:59 06:59 Intake Total 1463 Balance 1463 - Medications Medications: Current Medications Albuterol/Ipratropium (Duoneb 3 Mg/0.5 Mg (3 Ml) Ud) 3 ml INH RQ6 [facility] Last Admin: 06/08/16 20:15 Dose: 3 ml Diltiazem HCl (Cardizem) 30 mg PO Q6H [facility] Last Admin: 06/08/16 21:06 Dose: 30 mg Imipenem/Cilastatin Sodium 500 (mg/ Sodium Chloride) 100 mls @ 100 mls/hr IVPB Q8H [facility] Last Admin: 06/08/16 18:34 Dose: 100 mls/hr Levetiracetam 500 mg/ Sodium (Chloride) 105 mls @ 420 mls/hr IVPB Q12H [facility] Last Admin: 06/08/16 18:34 Dose: 420 mls/hr Pantoprazole Sodium (Protonix Inj) 40 mg IVP DAILY [facility] Last Admin: 06/08/16 09:38 Dose: 40 mg - Labs Labs: 06/08/16 06:29 06/08/16 06:29 PT 12.2 SECONDS (9.7-12.2) 06/04/16 18:00 INR 1.1 06/04/16 18:00 APTT 29 SECONDS (21-34) 06/04/16 18:00 - Constitutional Appears: No Acute Distress - Head Exam Head Exam: ATRAUMATIC, NORMAL INSPECTION, NORMOCEPHALIC - Eye Exam Eye Exam: EOMI, Normal appearance, PERRL Pupil Exam: NORMAL ACCOMODATION, PERRL - Respiratory Exam Respiratory Exam: Clear to Ausculation Bilateral, NORMAL BREATHING PATTERN - Cardiovascular Exam Cardiovascular Exam: REGULAR RHYTHM, +S1, +S2. absent: Murmur - GI/Abdominal Exam GI & Abdominal Exam: Soft, Normal Bowel Sounds. absent: Tenderness Assessment and Plan (1) UTI (urinary tract infection) Status: Acute (2) Dehydration Status: Acute (3) Hypotension Status: Acute (4) Acute onset sepsis Status: Acute
--- NOTE | 2016-06-08 23:28 | CP.PCM.PN ---
Subjective - Date & Time of Evaluation Date of Evaluation: 06/08/16 Time of Evaluation: 09:54 - Subjective Subjective: patient seen & examined with dehydration. Improving at this currently acute respiratory failure with the BiPAP ventilation. Continue the current treatment Improvement in blood pressure. Continue the current treatment. Transfer to floor Objective - Vital Signs/Intake and Output Vital Signs (last 24 hours): Temp Pulse Resp BP Pulse Ox 97.9 F 108 H 19 91/56 L 100 06/08/16 20:00 06/08/16 23:01 06/08/16 23:01 06/08/16 23:01 06/08/16 23:01 Intake and Output: 06/08/16 06/09/16 18:59 06:59 Intake Total 1463 Balance 1463 - Medications Medications: Current Medications Albuterol/Ipratropium (Duoneb 3 Mg/0.5 Mg (3 Ml) Ud) 3 ml INH RQ6 [facility] Last Admin: 06/08/16 20:15 Dose: 3 ml Diltiazem HCl (Cardizem) 30 mg PO Q6H [facility] Last Admin: 06/08/16 21:06 Dose: 30 mg Imipenem/Cilastatin Sodium 500 (mg/ Sodium Chloride) 100 mls @ 100 mls/hr IVPB Q8H [facility] Last Admin: 06/08/16 18:34 Dose: 100 mls/hr Levetiracetam 500 mg/ Sodium (Chloride) 105 mls @ 420 mls/hr IVPB Q12H [facility] Last Admin: 06/08/16 18:34 Dose: 420 mls/hr Pantoprazole Sodium (Protonix Inj) 40 mg IVP DAILY [facility] Last Admin: 06/08/16 09:38 Dose: 40 mg - Labs Labs: 06/08/16 06:29 06/08/16 06:29 PT 12.2 SECONDS (9.7-12.2) 06/04/16 18:00 INR 1.1 06/04/16 18:00 APTT 29 SECONDS (21-34) 06/04/16 18:00 - Constitutional Appears: Well - Head Exam Head Exam: ATRAUMATIC, NORMAL INSPECTION, NORMOCEPHALIC - Eye Exam Eye Exam: EOMI, Normal appearance, PERRL Pupil Exam: NORMAL ACCOMODATION, PERRL - Respiratory Exam Respiratory Exam: Clear to Ausculation Bilateral, NORMAL BREATHING PATTERN - Cardiovascular Exam Cardiovascular Exam: REGULAR RHYTHM, +S1, +S2. absent: Murmur - GI/Abdominal Exam GI & Abdominal Exam: Soft, Normal Bowel Sounds. absent: Tenderness Assessment and Plan (1) UTI (urinary tract infection) Status: Acute (2) Dehydration Status: Acute (3) Hypotension Status: Acute (4) Acute onset sepsis Status: Acute
[2016-06-09] MEDS: Albuterol-Ipratrop 3 mg / 0.5 (3 ml) UD INH SCH ×4 (01:25→19:23)
[2016-06-09] MEDS: levETIRAcetam 500 MG in Sodium Chloride 0.9% 100 ML IVPB SCH ×2 (05:34→18:49)
[2016-06-09] MEDS: Potassium Chloride 20 mEq/15 ml LIQ UD PO SCH (09:49)
--- NOTE | 2016-06-09 10:24 | CP.PCM.PN ---
Subjective - Date & Time of Evaluation Date of Evaluation: 06/09/16 Time of Evaluation: 09:20 - Subjective Subjective: Patient seen and examined. Placed on BiPAP overnight for shortness of breath Open eyes to stimuli Afebrile Possible thoracentesis Objective - Vital Signs/Intake and Output Vital Signs (last 24 hours): Temp Pulse Resp BP Pulse Ox 97.9 F 99 H 12 88/38 L 100 06/08/16 20:00 06/09/16 07:00 06/09/16 07:00 06/09/16 07:00 06/09/16 07:00 Intake and Output: 06/09/16 06/09/16 06:59 18:59 Intake Total 440 Output Total 1 Balance 439 - Medications Medications: Current Medications Albuterol/Ipratropium (Duoneb 3 Mg/0.5 Mg (3 Ml) Ud) 3 ml INH RQ6 [facility]AR[facility] Last Admin: 06/09/16 07:57 Dose: 3 ml Diltiazem HCl (Cardizem) 30 mg PO Q6H [facility] Last Admin: 06/09/16 09:49 Dose: Not Given Imipenem/Cilastatin Sodium 500 (mg/ Sodium Chloride) 100 mls @ 100 mls/hr IVPB Q8H [facility]AR[facility] Last Admin: 06/09/16 09:49 Dose: 100 mls/hr Levetiracetam 500 mg/ Sodium (Chloride) 105 mls @ 420 mls/hr IVPB Q12H [facility] Last Admin: 06/09/16 05:34 Dose: 420 mls/hr Pantoprazole Sodium (Protonix Inj) 40 mg IVP DAILY [facility] Last Admin: 06/09/16 09:49 Dose: 40 mg Potassium Chloride (Potassium Chloride Oral Soln) 40 meq PO DAILY [facility] Stop: 06/11/16 10:01 Last Admin: 06/09/16 09:49 Dose: 40 meq Potassium Chloride (Potassium Chloride Oral Soln) 20 meq PO ONCE ONE Stop: 06/09/16 18:01 - Labs Labs: 06/08/16 06:29 06/08/16 06:29 PT 12.2 SECONDS (9.7-12.2) 06/04/16 18:00 INR 1.1 06/04/16 18:00 APTT 29 SECONDS (21-34) 06/04/16 18:00 - Head Exam Head Exam: ATRAUMATIC, NORMOCEPHALIC - Eye Exam Eye Exam: Normal appearance - Neck Exam Neck Exam: Normal Inspection - Respiratory Exam Respiratory Exam: Decreased Breath Sounds - Cardiovascular Exam Cardiovascular Exam: REGULAR RHYTHM - GI/Abdominal Exam GI & Abdominal Exam: Soft, Normal Bowel Sounds - Extremities Exam Extremities Exam: Pedal Edema Assessment and Plan (1) Pleural effusion Assessment & Plan: Possible thoracentesis today by IR Continue nebulizer treatment and antibiotics Continue BiPAP for now Status: Acute (2) UTI (urinary tract infection) Status: Acute (3) Pneumonia Status: Resolved
--- NOTE | 2016-06-09 14:18 | PCM.SURG1 ---
Surgeon's Initial Post Op Note - Surgeon's Notes Surgeon: Mario Pearson MD Law Librarian: none Pre-Operative Diagnosis: Left pleural effusion. Operative Findings: US showed a small left effusion Post-Operative Diagnosis: Left pleural effusion. Operation Performed: US guided left thoracentesis. Specimen/Specimens Removed: 600 cc of slight serosanguinous fluid. Estimated Blood Loss: EBL {In ML}: 0 Blood Products Given: N/A Drains Used: No Drains Post-Op Condition: Fair Date of Surgery/Procedure: 06/09/16 Time of Surgery/Procedure: 13:50
[2016-06-09] MEDS ORDERED: Potassium Chloride 20 mEq/15 ml LIQ UD PO ONE (18:00)
--- NOTE | 2016-06-09 23:15 | CP.PCM.PN ---
Subjective - Date & Time of Evaluation Date of Evaluation: 06/09/16 Time of Evaluation: 23:14 - Subjective Subjective: CHIEF COMPLAINTS TODAY : AFEBRILE, awake,alert. comfortable. s/p thoracentesis as noted 600cc serosanguinous fluid obtained. NO DRAINS ROS. HEENT : N.head tilted to the left Resp : No cough, wheezing ,pleuritic CP ,or hemoptysis Cardio : No anginal CP, PND, orthopnea, TACHYCARDIC GI : No abd.pain, n/v ,diarrhea or GI bleeding . AGRICULTURAL APPRAISER : No headache, vertigo, focal deficit. Musculoskel : No joint swelling , Derm : No rash Psych : Normal affect. Ext : No swelling ,calf pain PE. Pt. is alert awake in no distress. V.S As noted in the chart Head ,ear nose,throat and eyes : Normal. Neck : Supple with normal carotids. Lungs: DIMINISHED BREATH SOUNDS BILATERALLY Heart : S1 & S2 normal with S4. No murmur.TACHYCARDIC Abd : Soft non tender with normal bowel sounds. Neuro : Moves all ext. with no localized deficit. Ext : + EDEMA with intact pulses.Non tender calves Derm : No rashes or decubitus ulcer. LABS/RADIOLOGY: REVIEWE BLOOD CULTURES 06/06/16 NEGATIVE FOR MORE THAN 24 HOURS. BLOOD CULTURES 1;2 SETS +VE SCN URINE CULTURE +VE PROTEUS MIRABILIS -MDR ASSESSMENT/PLAN : IMPRESSION; -S/P LEFT-SIDED THORACENTESIS -600 CC SEROSANGUINEOUS FLUID OBTAINED. -ACUTE ONSET SEPSIS/HYPOTENSION - gRAM-POSITIVE BACTEREMIA 1 OUT OF 2 SETS POSITIVE (SCN BY pna FISH ) ? CONTAMINANT - BPRNPT-[id number]-RESISTANT PROTEUS MIRABILIS -HYPERNATREMIA-DEHYDRATION. -ACUTE ON CHRONIC RESPIRATORY FAILURE -R/O UNDERLYING PNEUMONIA LEFT SIDE WITH PARAPNEUMONIC EFFUSION. -CHF -DM. -HX MANISH- MASTOIDITIS/CHOLESTEATOMA. PLAN; PER DISCUSSION WITH THE RN ON DUTY NO FLUID SENT TO LAB ??? WHY WILL DISCUSS WITH PASSENGER TIRE INSPECTOR / PULMONARY ON CASE. REPEAT UA/URINE CULTURES IN A.M. ON iv pRIMAXIN 500 MG EVERY 8 HOURLY . ON iv AMIKACIN 500MG IVPB TODAY 06/07/16 F/U WITH 500MG AMIKACIN IN A.M..06/08/16 mONITOR RENAL FUNCTIONS CLOSELY. mONITOR LEUKOPENIA.. CONSIDER THORACENTESIS LEFT PLEURAL EFFUSION R/O EMPYEMA VERSUS PARAPNEUMONIC EFFUSION ( PERFORMED 06/09 BUT NO CULTURES OR CELL COUNT DIFFERENTIAL, LDH SUGAR. PROTEINS SENT TO LAB) CONTACT PRECAUTIONS -GOWNS AND GLOVES Objective - Vital Signs/Intake and Output Vital Signs (last 24 hours): Temp Pulse Resp BP Pulse Ox 98 F 119 H 15 81/29 L 97 06/09/16 20:00 06/09/16 22:01 06/09/16 22:01 06/09/16 22:01 06/09/16 22:01 Intake and Output: 06/09/16 06/10/16 18:59 06:59 Intake Total 75 Balance 75 - Medications Medications: Current Medications Albuterol/Ipratropium (Duoneb 3 Mg/0.5 Mg (3 Ml) Ud) 3 ml INH RQ6 [facility] Last Admin: 06/09/16 19:23 Dose: 3 ml Diltiazem HCl (Cardizem) 30 mg PO Q6H [facility] Last Admin: 06/09/16 21:33 Dose: 30 mg Imipenem/Cilastatin Sodium 500 (mg/ Sodium Chloride) 100 mls @ 100 mls/hr IVPB Q8H [facility] Last Admin: 06/09/16 18:50 Dose: 100 mls/hr Levetiracetam 500 mg/ Sodium (Chloride) 105 mls @ 420 mls/hr IVPB Q12H [facility] Last Admin: 06/09/16 18:49 Dose: 420 mls/hr Pantoprazole Sodium (Protonix Inj) 40 mg IVP DAILY [facility] Last Admin: 06/09/16 09:49 Dose: 40 mg Potassium Chloride (Potassium Chloride Oral Soln) 40 meq PO DAILY [facility] Stop: 06/11/16 10:01 Last Admin: 06/09/16 09:49 Dose: 40 meq - Labs Labs: 06/08/16 06:29 06/08/16 06:29 PT 12.2 SECONDS (9.7-12.2) 06/04/16 18:00 INR 1.1 06/04/16 18:00 APTT 29 SECONDS (21-34) 06/04/16 18:00 Assessment and Plan (1) Acute respiratory failure Status: Acute (2) Acute onset sepsis Status: Acute (3) UTI (urinary tract infection) Status: Acute (4) Dehydration Status: Acute (5) Hypotension Status: Acute (6) COPD (chronic obstructive pulmonary disease) Status: Acute
--- NOTE | 2016-06-10 00:32 | CP.PCM.PN ---
Subjective - Date & Time of Evaluation Date of Evaluation: 06/09/16 Time of Evaluation: 09:55 - Subjective Subjective: Pt seen and evaluated at bedside, s/p US guided left thoracentesis.feeling better, remains tacycardic, large left sided pleural effusion most likely paraneumonic effusion Objective - Vital Signs/Intake and Output Vital Signs (last 24 hours): Temp Pulse Resp BP Pulse Ox 98 F 119 H 15 81/29 L 97 06/09/16 20:00 06/09/16 22:01 06/09/16 22:01 06/09/16 22:01 06/09/16 22:01 Intake and Output: 06/09/16 06/10/16 18:59 06:59 Intake Total 75 Balance 75 - Medications Medications: Current Medications Albuterol/Ipratropium (Duoneb 3 Mg/0.5 Mg (3 Ml) Ud) 3 ml INH RQ6 [facility] Last Admin: 06/09/16 19:23 Dose: 3 ml Diltiazem HCl (Cardizem) 30 mg PO Q6H [facility] Last Admin: 06/09/16 21:33 Dose: 30 mg Imipenem/Cilastatin Sodium 500 (mg/ Sodium Chloride) 100 mls @ 100 mls/hr IVPB Q8H [facility] Last Admin: 06/09/16 18:50 Dose: 100 mls/hr Levetiracetam 500 mg/ Sodium (Chloride) 105 mls @ 420 mls/hr IVPB Q12H [facility] Last Admin: 06/09/16 18:49 Dose: 420 mls/hr Pantoprazole Sodium (Protonix Inj) 40 mg IVP DAILY [facility] Last Admin: 06/09/16 09:49 Dose: 40 mg Potassium Chloride (Potassium Chloride Oral Soln) 40 meq PO DAILY [facility] Stop: 06/11/16 10:01 Last Admin: 06/09/16 09:49 Dose: 40 meq - Labs Labs: 06/08/16 06:29 06/08/16 06:29 PT 12.2 SECONDS (9.7-12.2) 06/04/16 18:00 INR 1.1 06/04/16 18:00 APTT 29 SECONDS (21-34) 06/04/16 18:00 - Constitutional Appears: Well - Head Exam Head Exam: ATRAUMATIC, NORMAL INSPECTION, NORMOCEPHALIC - Eye Exam Eye Exam: EOMI, Normal appearance, PERRL Pupil Exam: NORMAL ACCOMODATION, PERRL - Respiratory Exam Respiratory Exam: Clear to Ausculation Bilateral, NORMAL BREATHING PATTERN - Cardiovascular Exam Cardiovascular Exam: REGULAR RHYTHM, +S1, +S2. absent: Murmur - GI/Abdominal Exam GI & Abdominal Exam: Soft, Normal Bowel Sounds. absent: Tenderness Assessment and Plan (1) UTI (urinary tract infection) Status: Acute (2) Dehydration Status: Acute (3) Hypotension Status: Acute (4) Acute onset sepsis Status: Acute
[2016-06-10] MEDS: Albuterol-Ipratrop 3 mg / 0.5 (3 ml) UD INH SCH ×2 (01:07→07:38)
[2016-06-10] MEDS: levETIRAcetam 500 MG in Sodium Chloride 0.9% 100 ML IVPB SCH ×2 (06:00→18:17)
[2016-06-10 06:58] LABS: HEMATOCRIT 36.7 % (34.0-47.0); MEAN CELL VOLUME 90.5 fL (81.0-99.0); MEAN CORPUSCULAR HEMOGLOBIN 26.8 pg (27.0-31.0); MEAN CORPUSCULAR HGB CONC 29.6 g/dL (33.0-37.0); MEAN PLATELET VOLUME 8.8 fL (7.2-11.7); RED CELL DISTRIBUTION WIDTH 22.4 % (11.5-14.5)
[2016-06-10 07:00] LABS: POTASSIUM 4.5 mmol/L (3.6-5.2)
[2016-06-10 07:03] LABS: CALCIUM 6.6 mg/dl (8.6-10.4)
[2016-06-10 08:17] LABS: WHITE BLOOD COUNT 10.4 K/uL (4.8-10.8)
[2016-06-10 09:21] LABS: RBC URINE 11 /hpf (0-3); URINE BACTERIA RARE (<OCC); URINE BILIRUBIN 2+ (NEGATIVE); URINE BLOOD NEGATIVE (NEGATIVE); URINE COLOR Amber (YELLOW); URINE GLUCOSE (UA) 1+ mg/dL (Normal); URINE KETONE 1+ mg/dL (NEGATIVE); URINE LEUKOCYTE ESTERASE 2+ Leu/uL (Negative); URINE PROTEIN 2+ mg/dL (NEGATIVE); WBC URINE 73 /hpf (0-5)
[2016-06-10] MEDS: Potassium Chloride 20 mEq/15 ml LIQ UD PO SCH (13:42)
--- NOTE | 2016-06-10 16:07 | CP.PCM.PN ---
Subjective - Date & Time of Evaluation Date of Evaluation: 06/10/16 Time of Evaluation: 12:30 - Subjective Subjective: Patient seen and examined in the intensive care unit. Status post thoracentesis 600 mL of serosanguineous fluid removed Off BiPAP in no respiratory distress Borderline hypotension Responds to vocal commands Afebrile Being treated for multidrug resistant Proteus urinary tract infection Objective - Vital Signs/Intake and Output Vital Signs (last 24 hours): Temp Pulse Resp BP Pulse Ox 97.8 F 116 H 20 91/53 L 99 06/10/16 13:00 06/10/16 13:00 06/10/16 13:00 06/10/16 11:11 06/10/16 13:00 Intake and Output: 06/10/16 06/10/16 06:59 18:59 Intake Total 500 Balance 500 - Medications Medications: Current Medications Diltiazem HCl (Cardizem) 30 mg PO Q6H [facility] Last Admin: 06/10/16 10:16 Dose: Not Given Imipenem/Cilastatin Sodium 500 (mg/ Sodium Chloride) 100 mls @ 100 mls/hr IVPB Q8H [facility] Last Admin: 06/10/16 10:04 Dose: 100 mls/hr Levetiracetam 500 mg/ Sodium (Chloride) 105 mls @ 420 mls/hr IVPB Q12H [facility] Last Admin: 06/10/16 06:00 Dose: 420 mls/hr Pantoprazole Sodium (Protonix Inj) 40 mg IVP DAILY [facility] Last Admin: 06/10/16 10:04 Dose: 40 mg Potassium Chloride (Potassium Chloride Oral Soln) 40 meq PO DAILY [facility] Stop: 06/11/16 10:01 Last Admin: 06/10/16 13:42 Dose: Not Given - Labs Labs: 06/10/16 06:34 06/10/16 06:34 PT 12.2 SECONDS (9.7-12.2) 06/04/16 18:00 INR 1.1 06/04/16 18:00 APTT 29 SECONDS (21-34) 06/04/16 18:00 - Head Exam Head Exam: ATRAUMATIC, NORMOCEPHALIC - Eye Exam Eye Exam: Normal appearance - ENT Exam ENT Exam: Mucous Membranes Moist - Neck Exam Neck Exam: Normal Inspection - Respiratory Exam Respiratory Exam: Decreased Breath Sounds - Cardiovascular Exam Cardiovascular Exam: REGULAR RHYTHM - GI/Abdominal Exam GI & Abdominal Exam: Soft, Normal Bowel Sounds Assessment and Plan (1) Pleural effusion Assessment & Plan: Status post thoracentesis with 600 mL of status tenderness fluid removed, no fluid was sent for culture and sensitivity and analysis Continue antibiotics as per infectious disease Follow-up chest x-ray Status: Acute (2) UTI (urinary tract infection) Status: Acute
--- NOTE | 2016-06-10 23:44 | CP.PCM.PN ---
Subjective - Date & Time of Evaluation Date of Evaluation: 06/10/16 Time of Evaluation: 23:44 - Subjective Subjective: CHIEF COMPLAINTS TODAY : AFEBRILE, awake,alert. OOB ON CARDIAC CHAIR comfortable. s/p thoracentesis 06/09 600cc serosanguinous fluid obtained. NO DRAINS ROS. HEENT : N.head tilted to the left Resp : No cough, wheezing ,pleuritic CP ,or hemoptysis Cardio : No anginal CP, PND, orthopnea, TACHYCARDIC GI : No abd.pain, n/v ,diarrhea or GI bleeding . COURT MONITOR : No headache, vertigo, focal deficit. Musculoskel : No joint swelling , Derm : No rash Psych : Normal affect. Ext : No swelling ,calf pain PE. Pt. is alert awake in no distress. V.S As noted in the chart Head ,ear nose,throat and eyes : Normal. Neck : Supple with normal carotids. Lungs: DIMINISHED BREATH SOUNDS BILATERALLY Heart : S1 & S2 normal with S4. No murmur.TACHYCARDIC Abd : Soft non tender with normal bowel sounds. Neuro : Moves all ext. with no localized deficit. Ext : + EDEMA with intact pulses.Non tender calves Derm : No rashes or decubitus ulcer. LABS/RADIOLOGY: REVIEWE BLOOD CULTURES 06/06/16 NEGATIVE FOR MORE THAN 24 HOURS. BLOOD CULTURES 1;2 SETS +VE SCN URINE CULTURE +VE PROTEUS MIRABILIS -MDR ASSESSMENT/PLAN : IMPRESSION; -S/P LEFT-SIDED THORACENTESIS -600 CC SEROSANGUINEOUS FLUID OBTAINED. -ACUTE ONSET SEPSIS/HYPOTENSION - gRAM-POSITIVE BACTEREMIA 1 OUT OF 2 SETS POSITIVE (SCN BY pna FISH ) ? CONTAMINANT - [id number]-RESISTANT PROTEUS MIRABILIS -HYPERNATREMIA-DEHYDRATION. -ACUTE ON CHRONIC RESPIRATORY FAILURE -R/O UNDERLYING PNEUMONIA LEFT SIDE WITH PARAPNEUMONIC EFFUSION. -CHF -DM. -HX MANISH- MASTOIDITIS/CHOLESTEATOMA. PLAN; PER DISCUSSION WITH THE RN ON DUTY NO FLUID SENT TO LAB ??? WHY WILL DISCUSS WITH PHYSICIST ASTROPHYSICS / PULMONARY ON CASE. F/U REPEAT UA/URINE CULTURE. ON iv pRIMAXIN 500 MG EVERY 8 HOURLY . ON iv AMIKACIN 500MG IVPB TODAY 06/07/16 F/U WITH 500MG AMIKACIN IN A.M..06/08/16 mONITOR RENAL FUNCTIONS CLOSELY. mONITOR LEUKOPENIA.. CONSIDER THORACENTESIS LEFT PLEURAL EFFUSION R/O EMPYEMA VERSUS PARAPNEUMONIC EFFUSION ( PERFORMED 06/09 BUT NO CULTURES OR CELL COUNT DIFFERENTIAL, LDH SUGAR. PROTEINS SENT TO LAB) CONTACT PRECAUTIONS -GOWNS AND GLOVES Objective - Vital Signs/Intake and Output Vital Signs (last 24 hours): Temp Pulse Resp BP Pulse Ox 97.8 F 120 H 20 92/45 L 99 06/10/16 13:00 06/10/16 16:00 06/10/16 13:00 06/10/16 21:15 06/10/16 13:00 Intake and Output: 06/10/16 06/11/16 18:59 06:59 Intake Total 500 Balance 500 - Medications Medications: Current Medications Diltiazem HCl (Cardizem) 30 mg PO Q6H [facility] Last Admin: 06/10/16 21:31 Dose: Not Given Imipenem/Cilastatin Sodium 500 (mg/ Sodium Chloride) 100 mls @ 100 mls/hr IVPB Q8H [facility] Last Admin: 06/10/16 17:19 Dose: 100 mls/hr Levetiracetam 500 mg/ Sodium (Chloride) 105 mls @ 420 mls/hr IVPB Q12H [facility] Last Admin: 06/10/16 18:17 Dose: 420 mls/hr Pantoprazole Sodium (Protonix Inj) 40 mg IVP DAILY [facility] Last Admin: 06/10/16 10:04 Dose: 40 mg Potassium Chloride (Potassium Chloride Oral Soln) 40 meq PO DAILY [facility] Stop: 06/11/16 10:01 Last Admin: 06/10/16 13:42 Dose: Not Given - Labs Labs: 06/10/16 06:34 06/10/16 06:34 PT 12.2 SECONDS (9.7-12.2) 06/04/16 18:00 INR 1.1 06/04/16 18:00 APTT 29 SECONDS (21-34) 06/04/16 18:00 Assessment and Plan (1) UTI (urinary tract infection) Status: Acute (2) Dehydration Status: Acute (3) Acute respiratory failure Status: Acute (4) COPD (chronic obstructive pulmonary disease) Status: Acute (5) Hypotension Status: Acute (6) Acute onset sepsis Status: Acute
[2016-06-10] MEDS ORDERED: Potassium Chloride 20 mEq ER Tab PO ONE (23:50)
--- NOTE | 2016-06-11 01:31 | CP.PCM.PN ---
Subjective - Date & Time of Evaluation Date of Evaluation: 06/10/16 Time of Evaluation: 09:57 - Subjective Subjective: Patient seen and examined in the intensive care unit. Status post thoracentesis 600 mL of serosanguineous fluid removed Off BiPAP in no respiratory distress Borderline hypotension Responds to vocal commands Afebrile Being treated for multidrug resistant Proteus urinary tract infection Objective - Vital Signs/Intake and Output Vital Signs (last 24 hours): Temp Pulse Resp BP Pulse Ox 97.8 F 120 H 20 92/45 L 99 06/10/16 13:00 06/10/16 16:00 06/10/16 13:00 06/10/16 21:15 06/10/16 13:00 Intake and Output: 06/10/16 06/11/16 18:59 06:59 Intake Total 500 Balance 500 - Medications Medications: Current Medications Diltiazem HCl (Cardizem) 30 mg PO Q6H [facility] Last Admin: 06/10/16 21:31 Dose: Not Given Imipenem/Cilastatin Sodium 500 (mg/ Sodium Chloride) 100 mls @ 100 mls/hr IVPB Q8H [facility] Last Admin: 06/10/16 17:19 Dose: 100 mls/hr Levetiracetam 500 mg/ Sodium (Chloride) 105 mls @ 420 mls/hr IVPB Q12H [facility] Last Admin: 06/10/16 18:17 Dose: 420 mls/hr Pantoprazole Sodium (Protonix Inj) 40 mg IVP DAILY [facility] Last Admin: 06/10/16 10:04 Dose: 40 mg Potassium Chloride (Potassium Chloride Oral Soln) 40 meq PO DAILY [facility] Stop: 06/11/16 10:01 Last Admin: 06/10/16 13:42 Dose: Not Given - Labs Labs: 06/10/16 06:34 06/10/16 06:34 PT 12.2 SECONDS (9.7-12.2) 06/04/16 18:00 INR 1.1 06/04/16 18:00 APTT 29 SECONDS (21-34) 06/04/16 18:00 - Constitutional Appears: No Acute Distress, Chronically Ill - Eye Exam Eye Exam: EOMI, Normal appearance, PERRL Pupil Exam: NORMAL ACCOMODATION, PERRL - Respiratory Exam Respiratory Exam: Decreased Breath Sounds, Rales, Rhonchi - Back Exam Back Exam: NORMAL INSPECTION - Neurological Exam Neurological Exam: Alert, Awake, CN II-XII Intact, Normal Gait, Oriented x3 - Psychiatric Exam Psychiatric exam: Normal Affect, Normal Mood - Skin Skin Exam: Dry, Intact, Normal Color, Warm Assessment and Plan (1) UTI (urinary tract infection) Status: Acute (2) Dehydration Status: Acute (3) Hypotension Status: Acute (4) Acute onset sepsis Status: Acute
[2016-06-11] MEDS: levETIRAcetam 500 MG in Sodium Chloride 0.9% 100 ML IVPB SCH ×2 (06:09→19:03)
[2016-06-11 11:02] LABS: ABG ALLEN TEST POS; ARTERIAL BLOOD HGB O2 SAT 94.3 % (95.0-98.0); CARBOXYHEMOGLOBIN 2.1 % (0.5-1.5); DRAW SITE RR; HHB 2.9 % (0.0-5.0); METHEMOGLOBIN 0.7 % (0.0-3.0)
[2016-06-11] MEDS: Albuterol-Ipratrop 3 mg / 0.5 (3 ml) UD INH SCH ×3 (11:09→20:01)
[2016-06-11] MEDS: Potassium Chloride 20 mEq/15 ml LIQ UD PO SCH (11:13)
[2016-06-11] MEDS ORDERED: Sodium Chloride 0.9% 500 ML IV ONE ×3 (11:21→14:34)
[2016-06-11] MEDS: MethylPREDNISolone 40 mg Vial IVP SCH ×2 (11:28→19:30)
[2016-06-11 15:44] LABS: ABG ALLEN TEST POS; DRAW SITE RRA
[2016-06-11] MEDS ORDERED: Etomidate 20 mg/10ml Inj IV ONE (16:00)
[2016-06-11] MEDS ORDERED: Midazolam 2 MG/2 ML VIAL ONE (16:14)
[2016-06-11] MEDS ORDERED: Midazolam 2 MG/2 ML VIAL IVP ONE (16:15)
[2016-06-11] MEDS ORDERED: Vasopressin 40 UNITS in Dextrose 5% In Water 38 ML IV SCH (16:45)
[2016-06-11] MEDS: Dexmedetomidine Hydrochloride 200 MCG in Sodium Chloride 0.9% 48 ML IV PRN ×2 (16:50→21:15)
--- NOTE | 2016-06-11 16:59 | CP.CCUPN ---
<Nancy Morocho - Last Filed: 06/11/16 17:24> CCU Subjective - Physician Review Subjective (Free Text): Patient was seen and examined at bedside. Patient was downgraded to telemetry over the weekend. Today she continued to be hypotensive despite 3 fluid challenges of NS 500cc. Consent for a PICC line was obtained from the patient but when the PICC line was going to be placed the patient became lethargic. Family was called, left a voicemail but did not hear back from family or POA. Patient was on BiPAP and an ABG was done showing respiratory failure. Patient was intubated and a central line was placed in the RIGHT IJ. She was started on Levophed and Precedex. Patient was on contact isolation for + proteus in urine culture. Latest Urine culture on 06/10 - no growth in urine - patient is no longer on contact isolation CCU Objective - Vital Signs / Intake & Output Vital Signs (Last 4 hours): Vital Signs Pulse Resp BP Pulse Ox 06/11/16 13:48 104 H 06/11/16 13:00 108 H 11 L 87/40 L 97 Intake and Output (Last 8hrs): Intake & Output 06/11/16 06/11/16 06/11/16 06:59 14:59 22:59 Intake Total 500 Balance 500 Intake: Intake, IV Amount 500 Right Hand 500 Other: # Voids Urine, Voided 2 - Physical Exam Head: Positive for: Atraumatic, Normocephalic Pupils: Positive for: PERRL Extroacular Muscles: Positive for: EOMI Conjunctiva: Positive for: Normal Mouth: Positive for: Moist Mucous Membranes Respiratory/Chest: Positive for: Decreased Breath Sounds, Other (INTUBATED ) Cardiovascular: Positive for: Tachycardic Upper Extremity: Positive for: Normal Inspection, NORMAL PULSES. Negative for: Cyanosis, Edema Lower Extremity: Positive for: Normal Inspection, NORMAL PULSES. Negative for: Edema, CALF TENDERNESS Neurological: Positive for: GCS=15, CN II-XII Intact Skin: Positive for: Warm, Dry Psychiatric: Positive for: Alert, Oriented x 3 - Medications Active Medications: Active Medications Generic Name Dose Route Start Last Admin Trade Name Freq PRN Reason Stop Dose Admin Albuterol/Ipratropium 3 ml 06/11/16 10:45 06/11/16 13:47 Duoneb 3 Mg/0.5 Mg (3 Ml) Ud INH 3 ml RQ6 SHAR[facility] Administration Diltiazem HCl 30 mg 06/08/16 16:00 06/11/16 16:19 Cardizem PO Not Given Q6H [facility] Imipenem/Cilastatin Sodium 500 100 mls @ 100 mls/hr 06/06/16 18:00 06/11/16 11:13 mg/ Sodium Chloride IVPB 100 mls/hr Q8H [facility] Administration Levetiracetam 500 mg/ Sodium 105 mls @ 420 mls/hr 06/07/16 18:30 06/11/16 06: 09 Chloride IVPB 420 mls/hr Q12H [facility] Administration Dexmedetomidine HCl 200 mcg/ 50 mls @ 6.25 mls/hr 06/11/16 16:32 Sodium Chloride IV TITR PRN Sedation Protocol 0.2 MCG/KG/HR Norepinephrine Bitartrate 4 mg 254 mls @ 15.24 mls/hr 06/11/16 16:25 / Dextrose IV .[id number] PRN TITRATE PER MD ORDER Protocol 4 MCG/MIN Methylprednisolone 40 mg 06/11/16 11:15 06/11/16 11:28 Solu-Medrol IVP 40 mg Q8H [facility] Administration Pantoprazole Sodium 40 mg 06/05/16 10:00 06/11/16 11:14 Protonix Inj IVP 40 mg DAILY [facility] Administration - Patient Studies Lab Studies: Microbiology Studies 06/10/16 04:00 Urine Culture - Final Urine,Catheterized No Growth (<1,000 CFU/ML) 06/06/16 16:30 Blood Culture - Preliminary Blood NO GROWTH AFTER 4 DAYS 06/06/16 17:00 Blood Culture - Preliminary Blood NO GROWTH AFTER 4 DAYS Lab Studies 06/11/16 06/11/16 Range/Units 15:40 10:58 Puncture Site Rra Rr pCO2 59 H 65 H (35-45) mm/Hg pO2 68 L 67 L (80-100) mm/Hg HCO3 22.3 22.3 (21-28) mmol/L ABG pH 7.24 L 7.20 L (7.35-7.45) ABG Total CO2 27.1 27.4 (22-28) mmol/L ABG O2 Saturation 96.9 97.0 (95-98) % ABG Base Excess -3.1 L -3.3 L (-2.0-3.0) mmol/L ABG Hemoglobin 10.3 L (11.7-17.4) g/dL ABG Carboxyhemoglobin 2.1 H (0.5-1.5) % POC ABG HHb (Measured) 2.9 (0.0-5.0) % ABG Methemoglobin 0.7 (0.0-3.0) % Oscar Test Pos Pos ABG Potassium 4.9 (3.6-5.2) mmol/L A-a O2 Difference 72.0 66.0 mm/Hg Respiratory Index 1.1 1.0 Hgb O2 Saturation 94.3 L (95.0-98.0) % Sodium 143.0 (132-148) mmol/l Chloride 116.0 H (98-107) mmol/L Glucose 104 (65-105) mg/dl Lactate 0.6 L (0.7-2.1) mmol/L FiO2 30.0 30.0 % Inspiratory BiPAP 14 16 Expiratory BiPAP 7 6 Arterial Blood Potassium 4.9 (3.6-5.2) mmol/L Laboratory Results - last 24 hr 06/11/16 06/11/16 10:58 15:40 Puncture Site Rr Rra pCO2 65 H 59 H pO2 67 L 68 L HCO3 22.3 22.3 ABG pH 7.20 L 7.24 L ABG Total CO2 27.4 27.1 ABG O2 Saturation 97.0 96.9 ABG Base Excess -3.3 L -3.1 L ABG Hemoglobin 10.3 L ABG Carboxyhemoglobin 2.1 H POC ABG HHb (Measured) 2.9 ABG Methemoglobin 0.7 Oscar Test Pos Pos ABG Potassium 4.9 A-a O2 Difference 66.0 72.0 Respiratory Index 1.0 1.1 Hgb O2 Saturation 94.3 L Sodium 143.0 Chloride 116.0 H Glucose 104 Lactate 0.6 L FiO2 30.0 30.0 Inspiratory BiPAP 16 14 Expiratory BiPAP 6 7 Arterial Blood Potassium 4.9 Critical Care Progress Note - Nutrition Nutrition: Nutrition Category Date Time Status Soft [Dysphagia/Modified Consistency Diet] [DIET] Diets 06/06/16 Dinner Active Assessment/Plan - Assessment and Plan (Free Text) Assessment: 80 year old female with PMHx of CHF, DM, COPD, HTN, Respiratory failure, recurrent UTIs presented with dehydration, hypernatremia, acute on chronic respiratory failure, and a UTI. Plan: Acute on Chronic Respiratory failure * Patient is currently intubated, current vent settings: PVRC: PEEP 5, RR 14, FiO2 60% * Duonebs Q6H, Solumedrol 40mg IVP Q8H Hypotension * Right IJ inserted * Started on Levophed Left Sided- Pleural Effusion * Left sided- pleural effusion noted on CXR. * Patient underwent thoracentesis on 06/09/16 where 600cc serosanguineous fluid was obtained. Unfortunately, no cultures, cytology, labs were performed on the fluid. * Currently on Primaxin (day 6) Pneumonia * Left sided pleural effusion/ cannot rule out underlying pneumonia * Currently on Primaxin (day 6) Bacterimia * 06/04- Blood cultures x1 + for gram + cocci - most likely contaminant * Repeat blood cultures 06/06 - no growth * Tachycardic * Dr. Cantrell- consulted - Currently on Primaxin (day 6) UTI - resolved * UA: + nitrates, leukocyte esterases * Rocephin 1 gram daily * Urine culture - 06/04- MRD Proteus * Dr. Cantrell- consulted patient was placed on: Amikacin and Primaxin * Urine culture -06/06- no growth - DC contact precautions Prophylaxis * GI PPX: Protonix 40mg IVP daily * SCDs, no VTE due to thrombocytopenia DW Rashawn Kirby DO, PGY-1 <Cheo Farnsworth S - Last Filed: 06/11/16 18:01> CCU Objective - Vital Signs / Intake & Output Vital Signs (Last 4 hours): Vital Signs Pulse Resp BP Pulse Ox 06/11/16 17:04 100 H 20 80/50 L 100 Intake and Output (Last 8hrs): Intake & Output 06/11/16 06/11/16 06/11/16 06:59 14:59 22:59 Intake Total 500 4 Balance 500 4 Intake: IV 4 Intake, IV Amount 500 Right Hand 500 Other: # Voids Urine, Voided 2 - Medications Active Medications: Active Medications Generic Name Dose Route Start Last Admin Trade Name Freq PRN Reason Stop Dose Admin Albuterol/Ipratropium 3 ml 06/11/16 10:45 06/11/16 13:47 Duoneb 3 Mg/0.5 Mg (3 Ml) Ud INH 3 ml RQ6 [facility]AR[facility] Administration Diltiazem HCl 30 mg 06/08/16 16:00 06/11/16 16:19 Cardizem PO Not Given Q6H [facility] Imipenem/Cilastatin Sodium 500 100 mls @ 100 mls/hr 06/06/16 18:00 06/11/16 17:03 mg/ Sodium Chloride IVPB 100 mls/hr Q8H [facility] Administration Levetiracetam 500 mg/ Sodium 105 mls @ 420 mls/hr 06/07/16 18:30 06/11/16 06: 09 Chloride IVPB 420 mls/hr Q12H [facility] Administration Dexmedetomidine HCl 200 mcg/ 50 mls @ 6.25 mls/hr 06/11/16 16:32 06/11/16 16: 50 Sodium Chloride IV 0.2 mcg/kg/hr TITR PRN 6.25 mls/hr Sedation Administration Protocol 0.2 MCG/KG/HR Norepinephrine Bitartrate 4 mg 254 mls @ 15.24 mls/hr 06/11/16 16:25 17:56 / Dextrose IV 5 mcg/min .[id number] PRN 19.05 mls/hr TITRATE PER MD ORDER Titration Protocol 4 MCG/MIN Methylprednisolone 40 mg 06/11/16 11:15 06/11/16 11:28 Solu-Medrol IVP 40 mg Q8H [facility] Administration Pantoprazole Sodium 40 mg 06/05/16 10:00 06/11/16 11:14 Protonix Inj IVP 40 mg DAILY [facility] Administration - Patient Studies Lab Studies: Microbiology Studies 06/10/16 04:00 Urine Culture - Final Urine,Catheterized No Growth (<1,000 CFU/ML) 06/06/16 16:30 Blood Culture - Preliminary Blood NO GROWTH AFTER 4 DAYS 06/06/16 17:00 Blood Culture - Preliminary Blood NO GROWTH AFTER 4 DAYS Lab Studies 06/11/16 06/11/16 Range/Units 15:40 10:58 Puncture Site Rra Rr pCO2 59 H 65 H (35-45) mm/Hg pO2 68 L 67 L (80-100) mm/Hg HCO3 22.3 22.3 (21-28) mmol/L ABG pH 7.24 L 7.20 L (7.35-7.45) ABG Total CO2 27.1 27.4 (22-28) mmol/L ABG O2 Saturation 96.9 97.0 (95-98) % ABG Base Excess -3.1 L -3.3 L (-2.0-3.0) mmol/L ABG Hemoglobin 10.3 L (11.7-17.4) g/dL ABG Carboxyhemoglobin 2.1 H (0.5-1.5) % POC ABG HHb (Measured) 2.9 (0.0-5.0) % ABG Methemoglobin 0.7 (0.0-3.0) % Oscar Test Pos Pos ABG Potassium 4.9 (3.6-5.2) mmol/L A-a O2 Difference 72.0 66.0 mm/Hg Respiratory Index 1.1 1.0 Hgb O2 Saturation 94.3 L (95.0-98.0) % Sodium 143.0 (132-148) mmol/l Chloride 116.0 H (98-107) mmol/L Glucose 104 (65-105) mg/dl Lactate 0.6 L (0.7-2.1) mmol/L FiO2 30.0 30.0 % Inspiratory BiPAP 14 16 Expiratory BiPAP 7 6 Arterial Blood Potassium 4.9 (3.6-5.2) mmol/L Laboratory Results - last 24 hr 06/11/16 06/11/16 10:58 15:40 Puncture Site Rr Rra pCO2 65 H 59 H pO2 67 L 68 L HCO3 22.3 22.3 ABG pH 7.20 L 7.24 L ABG Total CO2 27.4 27.1 ABG O2 Saturation 97.0 96.9 ABG Base Excess -3.3 L -3.1 L ABG Hemoglobin 10.3 L ABG Carboxyhemoglobin 2.1 H POC ABG HHb (Measured) 2.9 ABG Methemoglobin 0.7 Oscar Test Pos Pos ABG Potassium 4.9 A-a O2 Difference 66.0 72.0 Respiratory Index 1.0 1.1 Hgb O2 Saturation 94.3 L Sodium 143.0 Chloride 116.0 H Glucose 104 Lactate 0.6 L FiO2 30.0 30.0 Inspiratory BiPAP 16 14 Expiratory BiPAP 6 7 Arterial Blood Potassium 4.9 Critical Care Progress Note - Nutrition Nutrition: Nutrition Category Date Time Status Soft [Dysphagia/Modified Consistency Diet] [DIET] Diets 06/06/16 Dinner Active Assessment/Plan (1) Pleural effusion Current Visit: Yes Status: Acute (2) UTI (urinary tract infection) Current Visit: Yes Status: Acute Comment: Broad spectrum antibiotic Fine cultures Attending/Attestation - Attestation I have personally seen and examined this patient.: Yes I have fully participated in the care of the patient.: Yes I have reviewed all pertinent clinical information: Yes Notes (Text): 06/11/16 17:58 Patient seen and examined in the intensive care unit. 80-year-old female status post thoracentesis for large pleural effusion and being treated for urinary tract infection. This morning patient found lethargic with agonal breathing and was placed on BiPAP with slight improvement in mental status but remained acidotic secondary to CO2 retention. Patient intubated and placed on ventilatory support. Triple- lumen catheter inserted into right internal jugular vein under aseptic conditions and local anesthesia without any complications. Chest x-ray consistent with left lung infiltrate and pleural effusion Continue antibiotics IV sedation and pressors for persistent hypotension Start NGT feeding
--- NOTE | 2016-06-11 17:13 | RAD ---
HISTORY: s/p intubation COMPARISON: Chest x-ray performed 06/07/16 TECHNIQUE: Chest, one view. FINDINGS: Examination limited by habitus, hypoinflation, and patient obliquity. The right costophrenic angle and portions of the left chest wall excluded from view. Endotracheal tube terminates approximately 3.5 cm above the [place]on. Nasogastric tube extends expected location of the stomach. Right IJ approach central venous catheter terminates at the SVC. LUNGS: Moderate left pleural effusion and probable consolidation. No definite pneumothorax. Pulmonary venous congestion. Please note that chest x-ray has limited sensitivity for the detection of pulmonary masses. CARDIOVASCULAR: Partially obscured borderline cardiomegaly. OSSEOUS STRUCTURES: No acute osseous abnormality identified. VISUALIZED UPPER ABDOMEN: Unremarkable. OTHER FINDINGS: None. IMPRESSION: Limited study. Support lines and tubes as above. Moderate left pleural effusion and probable consolidation. No definite pneumothorax. Pulmonary venous congestion.
[2016-06-11 18:14] LABS: ABG ALLEN TEST POS; ABG MECHANICAL RATE 14; ARTERIAL BLOOD HGB O2 SAT 96.8 % (95.0-98.0); ATERIAL BLOOD GAS PEEP 5; CARBOXYHEMOGLOBIN 1.7 % (0.5-1.5); DRAW SITE RRA; HHB 0.4 % (0.0-5.0); METHEMOGLOBIN 1.2 % (0.0-3.0)
--- NOTE | 2016-06-11 19:54 | CP.PCM.PN ---
Subjective - Date & Time of Evaluation Date of Evaluation: 06/11/16 Time of Evaluation: 19:54 - Subjective Subjective: CHIEF COMPLAINTS TODAY : EVENTS NOTED. PATIENT SEDATED patient intubated secondary to respiratory failure. hypotensive, on vasopressors s/p RT IJ CATHETER PLACED 06/11/16 s/p thoracentesis 06/09 600cc serosanguinous fluid obtained. NO DRAINS ROS. only on observation HEENT : N.head tilted to the left Resp : No cough, wheezing ,pleuritic CP ,or hemoptysis Cardio : TACHYCARDIC GI : No abd.pain, n/v ,diarrhea or GI bleeding . 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 Musculoskel : No joint swelling , Derm : No rash Psych : Normal affect. Ext : No swelling ,calf pain PE. Pt. is alert awake in no distress. V.S As noted in the chart Head ,ear nose,throat and eyes : Normal. Neck : Supple with normal carotids. Lungs: DIMINISHED BREATH SOUNDS BILATERALLY Heart : S1 & S2 normal with S4. No murmur.TACHYCARDIC Abd : Soft non tender with normal bowel sounds. Neuro : Moves all ext. with no localized deficit. Ext : + EDEMA with intact pulses.Non tender calves Derm : No rashes or decubitus ulcer. LABS/RADIOLOGY: urine culture repeat negative growth . Creatinine 1.2/BUN 22 .Chest x-ray 06/11/16 moderate left pleural effusion probably consolidation. Peripheral vascular congestion. No pneumothorax. BLOOD CULTURES 06/06/16 NEGATIVE FOR MORE THAN 24 HOURS. BLOOD CULTURES 1;2 SETS +VE SCN URINE CULTURE +VE PROTEUS MIRABILIS -MDR ASSESSMENT/PLAN : IMPRESSION; -RESPIRATORY FAILURE/PNEUMONIA -S/P LEFT-SIDED THORACENTESIS -600 CC SEROSANGUINEOUS FLUID OBTAINED.06/09 - SEPSIS- SYNDROME /HYPOTENSION - gRAM-POSITIVE BACTEREMIA 1 OUT OF 2 SETS POSITIVE (SCN BY pna FISH ) ? CONTAMINANT - [id number]-RESISTANT PROTEUS MIRABILIS -HYPERNATREMIA-DEHYDRATION. -ACUTE ON CHRONIC RESPIRATORY FAILURE -R/O LEFT SIDE WITH PARAPNEUMONIC EFFUSION. -CHF -DM. -HX MANISH- MASTOIDITIS/CHOLESTEATOMA. PLAN; start IV vancomycin 1 g every 12 hourly in view of hypotension and possible HAP. 06/11/16 ON iv pRIMAXIN 500 MG EVERY 8 HOURLY 4/17. sputuM gRAM STAIN AND CULTURE. OFF iv AMIKACIN 500MG IVPB TODAY 06/07/16 F/U WITH 500MG AMIKACIN IN A.M..06/08/16 mONITOR RENAL FUNCTIONS CLOSELY. stat CBC and bmp now. CONSIDER REPEAT THORACENTESIS LEFT PLEURAL EFFUSION R/O EMPYEMA VERSUS PARAPNEUMONIC EFFUSION . ( PERFORMED 06/09 BUT NO CULTURES OR CELL COUNT DIFFERENTIAL, LDH SUGAR. PROTEINS SENT TO LAB) strict handwashing. Can DC contact isolation. Objective - Vital Signs/Intake and Output Vital Signs (last 24 hours): Temp Pulse Resp BP Pulse Ox 97.9 F 71 14 98/51 L 100 06/11/16 16:00 06/11/16 19:00 06/11/16 19:00 06/11/16 19:00 06/11/16 19:00 Intake and Output: 06/11/16 06/12/16 18:59 06:59 Intake Total 646.6 124.9 Output Total 125 50 Balance 521.6 74.9 - Medications Medications: Current Medications Albuterol/Ipratropium (Duoneb 3 Mg/0.5 Mg (3 Ml) Ud) 3 ml INH RQ6 SHARIF Last Admin: 06/11/16 13:47 Dose: 3 ml Diltiazem HCl (Cardizem) 30 mg PO Q6H [facility] Last Admin: 06/11/16 16:19 Dose: Not Given Imipenem/Cilastatin Sodium 500 (mg/ Sodium Chloride) 100 mls @ 100 mls/hr IVPB Q8H [facility] Last Admin: 06/11/16 17:03 Dose: 100 mls/hr Levetiracetam 500 mg/ Sodium (Chloride) 105 mls @ 420 mls/hr IVPB Q12H [facility] Last Admin: 06/11/16 19:03 Dose: 420 mls/hr Dexmedetomidine HCl 200 mcg/ (Sodium Chloride) 50 mls @ 6.25 mls/hr IV TITR PRN ; Protocol; 0.2 MCG/KG/HR PRN Reason: Sedation Last Admin: 06/11/16 16:50 Dose: 0.2 mcg/kg/hr, 6.25 mls/hr Norepinephrine Bitartrate 4 mg (/ Dextrose) 254 mls @ 15.24 mls/hr IV .[id number] PRN; Protocol; 4 MCG/MIN PRN Reason: TITRATE PER MD ORDER Last Titration: 06/11/16 17:56 Dose: 5 mcg/min, 19.05 mls/hr Methylprednisolone (Solu-Medrol) 40 mg IVP Q8H [facility] Last Admin: 06/11/16 11:28 Dose: 40 mg Pantoprazole Sodium (Protonix Inj) 40 mg IVP DAILY [facility] Last Admin: 06/11/16 11:14 Dose: 40 mg - Labs Labs: 06/10/16 06:34 06/10/16 06:34 PT 12.2 SECONDS (9.7-12.2) 06/04/16 18:00 INR 1.1 06/04/16 18:00 APTT 29 SECONDS (21-34) 06/04/16 18:00 Assessment and Plan (1) UTI (urinary tract infection) Status: Acute (2) Dehydration Status: Acute (3) Acute respiratory failure Status: Acute (4) COPD (chronic obstructive pulmonary disease) Status: Acute (5) Hypotension Status: Acute (6) Acute onset sepsis Status: Acute
[2016-06-11 20:59] LABS: BASO % 0.6 % (0.0-2.0); HEMATOCRIT 35.3 % (34.0-47.0); LYMPH # 0.5 K/uL (1.0-4.3); LYMPH % 7.7 % (20.0-40.0); MEAN CELL VOLUME 88.8 fL (81.0-99.0); MEAN CORPUSCULAR HEMOGLOBIN 26.8 pg (27.0-31.0); MEAN CORPUSCULAR HGB CONC 30.2 g/dL (33.0-37.0); MEAN PLATELET VOLUME 8.1 fL (7.2-11.7); MONO # 0.2 K/uL (0.0-0.8); MONO % 3.7 % (0.0-10.0); NRBC % 0.1 % (0.0-2.0); PLATELET COUNT 245 K/uL (130-400); RED CELL DISTRIBUTION WIDTH 21.8 % (11.5-14.5); WHITE BLOOD COUNT 6.8 K/uL (4.8-10.8)
[2016-06-11] MEDS: Vancomycin 1 gm/NS 200 ml 1 GM/200 ML BAG IVPB SCH (21:05)
[2016-06-11 21:46] LABS: POTASSIUM 4.9 mmol/L (3.6-5.2)
[2016-06-11 21:50] LABS: CALCIUM 6.9 mg/dl (8.6-10.4)
[2016-06-11 22:37] LABS: MYELOCYTE 1 % (0-0); NEUTROPHIL 87 % (50-75); TOTAL CELLS COUNTED 100
--- NOTE | 2016-06-12 01:06 | CP.PCM.PN ---
Subjective - Date & Time of Evaluation Date of Evaluation: 06/11/16 Time of Evaluation: 10:00 - Subjective Subjective: Pt seen and evaluated, is sedated and intubated secondary to respiratory failure. she is hypotensive, on vasopressors s/p RT IJ CATHETER PLACED 06/11/16 s/p thoracentesis 06/09 600cc serosanguinous fluid obtained. NO DRAINS, pt is still tacycardic Objective - Vital Signs/Intake and Output Vital Signs (last 24 hours): Temp Pulse Resp BP Pulse Ox 97.9 F 71 14 98/51 L 100 06/11/16 16:00 06/11/16 19:00 06/11/16 19:00 06/11/16 19:00 06/11/16 19:00 Intake and Output: 06/11/16 06/12/16 18:59 06:59 Intake Total 646.6 491.9 Output Total 125 200 Balance 521.6 291.9 - Medications Medications: Current Medications Albuterol/Ipratropium (Duoneb 3 Mg/0.5 Mg (3 Ml) Ud) 3 ml INH RQ6 [facility] Last Admin: 06/11/16 13:47 Dose: 3 ml Diltiazem HCl (Cardizem) 30 mg PO Q6H [facility] Last Admin: 06/11/16 21:06 Dose: Not Given Imipenem/Cilastatin Sodium 500 (mg/ Sodium Chloride) 100 mls @ 100 mls/hr IVPB Q8H [facility] Last Admin: 06/11/16 17:03 Dose: 100 mls/hr Levetiracetam 500 mg/ Sodium (Chloride) 105 mls @ 420 mls/hr IVPB Q12H [facility] Last Admin: 06/11/16 19:03 Dose: 420 mls/hr Dexmedetomidine HCl 200 mcg/ (Sodium Chloride) 50 mls @ 6.25 mls/hr IV TITR PRN ; Protocol; 0.2 MCG/KG/HR PRN Reason: Sedation Last Admin: 06/11/16 21:15 Dose: 0.2 mcg/kg/hr, 6.25 mls/hr Norepinephrine Bitartrate 4 mg (/ Dextrose) 254 mls @ 15.24 mls/hr IV .[id number] PRN; Protocol; 4 MCG/MIN PRN Reason: TITRATE PER MD ORDER Last Titration: 06/11/16 17:56 Dose: 5 mcg/min, 19.05 mls/hr Vancomycin/Sodium Chloride (Vancocin) 1 gm in 200 mls @ 133.333 mls/hr IVPB Q12H [facility] Stop: 06/16/16 21:01 Last Admin: 06/11/16 21:05 Dose: 133.333 mls/hr Methylprednisolone (Solu-Medrol) 40 mg IVP Q8H [facility] Last Admin: 06/11/16 19:30 Dose: 40 mg Pantoprazole Sodium (Protonix Inj) 40 mg IVP DAILY [facility] Last Admin: 06/11/16 11:14 Dose: 40 mg - Labs Labs: 06/11/16 20:54 06/11/16 20:54 PT 12.2 SECONDS (9.7-12.2) 06/04/16 18:00 INR 1.1 06/04/16 18:00 APTT 29 SECONDS (21-34) 06/04/16 18:00 - Constitutional Appears: No Acute Distress, Chronically Ill - Head Exam Head Exam: ATRAUMATIC, NORMAL INSPECTION, NORMOCEPHALIC - Respiratory Exam Respiratory Exam: Decreased Breath Sounds - Cardiovascular Exam Cardiovascular Exam: Tachycardia, +S1, +S2. absent: Bradycardia, Clicks, Diastolic murmur, Gallop, Irregular Rhythm, REGULAR RHYTHM, JVD, RRR, Rubs, +S4 , Murmur - GI/Abdominal Exam GI & Abdominal Exam: Soft, Normal Bowel Sounds. absent: Tenderness - Rectal Exam Rectal Exam: Deferred Assessment and Plan (1) UTI (urinary tract infection) Status: Acute (2) Dehydration Status: Acute (3) Hypotension Status: Acute (4) Acute onset sepsis Status: Acute
[2016-06-12] MEDS: Albuterol-Ipratrop 3 mg / 0.5 (3 ml) UD INH SCH ×4 (01:23→20:24)
[2016-06-12] MEDS: MethylPREDNISolone 40 mg Vial IVP SCH ×3 (03:30→18:27)
[2016-06-12] MEDS: Dexmedetomidine Hydrochloride 200 MCG in Sodium Chloride 0.9% 48 ML IV PRN ×2 (04:00→18:31)
[2016-06-12 05:48] LABS: ABG ALLEN TEST POS; ABG MECHANICAL RATE 14; ARTERIAL BLOOD HGB O2 SAT 96.4 % (95.0-98.0); ATERIAL BLOOD GAS PEEP 5; CARBOXYHEMOGLOBIN 1.5 % (0.5-1.5); DRAW SITE RR; HHB 0.5 % (0.0-5.0); METHEMOGLOBIN 1.6 % (0.0-3.0)
[2016-06-12] MEDS: levETIRAcetam 500 MG in Sodium Chloride 0.9% 100 ML IVPB SCH ×2 (06:10→18:27)
[2016-06-12 06:47] LABS: POTASSIUM 4.9 mmol/L (3.6-5.2)
[2016-06-12 06:49] LABS: ALB/GLOB RATIO 0.6 (1.0-2.1); BILIRUBIN,TOTAL 0.8 mg/dL (0.2-1.3)
[2016-06-12 06:50] LABS: CALCIUM 6.7 mg/dl (8.6-10.4); MAGNESIUM 1.8 mg/dL (1.6-2.3); PHOSPHOROUS 4.1 mg/dL (2.5-4.5)
[2016-06-12 07:03] LABS: HEMATOCRIT 33.9 % (34.0-47.0); MEAN CELL VOLUME 88.1 fL (81.0-99.0); MEAN CORPUSCULAR HEMOGLOBIN 26.5 pg (27.0-31.0); MEAN CORPUSCULAR HGB CONC 30.1 g/dL (33.0-37.0); MEAN PLATELET VOLUME 8.5 fL (7.2-11.7); WHITE BLOOD COUNT 5.2 K/uL (4.8-10.8)
[2016-06-12] MEDS: Sodium Chloride 0.9% 1,000 ML IV SCH ×2 (08:18→21:00)
[2016-06-12] MEDS: Vancomycin 1 gm/NS 200 ml 1 GM/200 ML BAG IVPB SCH ×2 (08:31→23:29)
[2016-06-12 08:52] LABS: LYMPH # 0.6 K/uL (1.0-4.3); MONO # 0.2 K/uL (0.0-0.8)
--- NOTE | 2016-06-12 09:31 | RAD ---
HISTORY: intubated COMPARISON: 06/11/2016 FINDINGS: LUNGS: Lines and tubes stable position. Large loculated left pleural effusion with prominent airspace consolidative changes in the left mid to lower lung zone. Patchy consolidative changes within the right lung base with bilateral hilar prominence. PLEURA: As above. CARDIOVASCULAR: Cardiomegaly. OSSEOUS STRUCTURES: Degenerative changes in the spine and shoulders. VISUALIZED UPPER ABDOMEN: Normal. OTHER FINDINGS: None. IMPRESSION: Lines and tubes in stable position. Large loculated left pleural effusion with prominent airspace consolidative changes in the left mid to lower lung zone. Patchy consolidative changes within the right lung base with bilateral hilar prominence.
--- NOTE | 2016-06-12 11:04 | CP.PCM.PN ---
Subjective - Date & Time of Evaluation Date of Evaluation: 06/12/16 Time of Evaluation: 08:00 - Subjective Subjective: Patient seen and examined in the intensive care unit. Remains intubated on ventilatory support but responds to vocal command FiO2 60% with saturation 100%. Afebrile Recurrence of large pleural effusion noted on the left side On pressors Objective - Vital Signs/Intake and Output Vital Signs (last 24 hours): Temp Pulse Resp BP Pulse Ox 97.9 F 62 14 88/57 L 100 06/12/16 04:00 06/12/16 06:00 06/12/16 06:00 06/12/16 06:00 06/12/16 06:00 Intake and Output: 06/12/16 06/12/16 06:59 18:59 Intake Total 694.1 Output Total 335 Balance 359.1 - Medications Medications: Current Medications Albuterol/Ipratropium (Duoneb 3 Mg/0.5 Mg (3 Ml) Ud) 3 ml INH RQ6 [facility] Last Admin: 06/12/16 08:07 Dose: 3 ml Heparin Sodium (Porcine) (Heparin) 5,000 units SC Q8 [facility] Imipenem/Cilastatin Sodium 500 (mg/ Sodium Chloride) 100 mls @ 100 mls/hr IVPB Q8H [facility] Last Admin: 06/12/16 02:00 Dose: 100 mls/hr Levetiracetam 500 mg/ Sodium (Chloride) 105 mls @ 420 mls/hr IVPB Q12H [facility] Last Admin: 06/12/16 06:10 Dose: 420 mls/hr Dexmedetomidine HCl 200 mcg/ (Sodium Chloride) 50 mls @ 6.25 mls/hr IV TITR PRN ; Protocol; 0.2 MCG/KG/HR PRN Reason: Sedation Last Titration: 06/12/16 04:00 Dose: 0.192 mcg/kg/hr, 6 mls/hr Norepinephrine Bitartrate 4 mg (/ Dextrose) 254 mls @ 15.24 mls/hr IV .[id number] PRN; Protocol; 4 MCG/MIN PRN Reason: TITRATE PER MD ORDER Last Titration: 06/11/16 17:56 Dose: 5 mcg/min, 19.05 mls/hr Vancomycin/Sodium Chloride (Vancocin) 1 gm in 200 mls @ 133.333 mls/hr IVPB Q12H [facility] Stop: 06/16/16 21:01 Last Admin: 06/12/16 08:31 Dose: 133.333 mls/hr Sodium Chloride (Sodium Chloride 0.9%) 1,000 mls @ 80 mls/hr IV .[id number] [facility] Last Admin: 06/12/16 08:18 Dose: Not Given Methylprednisolone (Solu-Medrol) 40 mg IVP Q8H [facility] Last Admin: 06/12/16 03:30 Dose: 40 mg Pantoprazole Sodium (Protonix Inj) 40 mg IVP DAILY [facility] Last Admin: 06/11/16 11:14 Dose: 40 mg - Labs Labs: 06/12/16 06:15 06/12/16 06:15 PT 12.2 SECONDS (9.7-12.2) 06/04/16 18:00 INR 1.1 06/04/16 18:00 APTT 29 SECONDS (21-34) 06/04/16 18:00 - Head Exam Head Exam: ATRAUMATIC, NORMOCEPHALIC - ENT Exam ENT Exam: Mucous Membranes Moist - Neck Exam Neck Exam: Normal Inspection - Respiratory Exam Respiratory Exam: Decreased Breath Sounds - Cardiovascular Exam Cardiovascular Exam: REGULAR RHYTHM - GI/Abdominal Exam GI & Abdominal Exam: Soft, Normal Bowel Sounds - Extremities Exam Extremities Exam: Pedal Edema Assessment and Plan (1) Acute respiratory failure Assessment & Plan: Respiratory failure requiring intubation secondary to recurrent large pleural effusion on the left side Will need chest tube drainage Continue antibiotics as per infectious disease Continue ventilatory support and start feeding Status: Acute (2) Pleural effusion Status: Acute (3) UTI (urinary tract infection) Status: Acute
--- NOTE | 2016-06-12 12:09 | CP.CCUPN ---
<Nancy Morocho - Last Filed: 06/12/16 12:12> CCU Subjective - Physician Review Subjective (Free Text): Patient was seen and examined at bedside. She is currently awake, intubated PRVC settings: RR14, FiO2 60%, PEEP 5, Tvolume 500. CHEST CT ordered. Cardiothoracic surgery consulted for chest tube placement of left sided pleural effusion. Patient started on tube feedings and fluids. Patient is no longer on contact isolation. Continue current Primaxin and Vancomycin as per Dr. Cantrell. CCU Objective - Vital Signs / Intake & Output Intake and Output (Last 8hrs): Intake & Output 06/11/16 06/12/16 06/12/16 22:59 06:59 14:59 Intake Total 596.2 244.5 Output Total 270 190 Balance 326.2 54.5 Intake: IV 54 14 Intake, IV Amount 542.2 230.5 Right Distal Port 104.4 79.5 Internal Jugular Right Medial Port 400 100 Internal Jugular Right Proximal Port 37.8 51 Internal Jugular Oral 0 Output: Urine 270 190 Urethral (Gonzalez) 270 190 - Physical Exam Head: Positive for: Atraumatic, Normocephalic Pupils: Positive for: PERRL Extroacular Muscles: Positive for: EOMI Conjunctiva: Positive for: Normal Mouth: Positive for: Moist Mucous Membranes Respiratory/Chest: Positive for: Decreased Breath Sounds, Other (INTUBATED ) Cardiovascular: Positive for: Tachycardic Upper Extremity: Positive for: Normal Inspection, NORMAL PULSES. Negative for: Cyanosis, Edema Lower Extremity: Positive for: Normal Inspection, NORMAL PULSES. Negative for: Edema, CALF TENDERNESS Neurological: Positive for: GCS=15, CN II-XII Intact Skin: Positive for: Warm, Dry Psychiatric: Positive for: Alert, Oriented x 3 - Medications Active Medications: Active Medications Generic Name Dose Route Start Last Admin Trade Name Freq PRN Reason Stop Dose Admin Albuterol/Ipratropium 3 ml 06/11/16 10:45 06/12/16 08:07 Duoneb 3 Mg/0.5 Mg (3 Ml) Ud INH 3 ml RQ6 SHARIF Administration Heparin Sodium (Porcine) 5,000 units 06/12/16 14:00 Heparin SC Q8 SHARIF Imipenem/Cilastatin Sodium 500 100 mls @ 100 mls/hr 06/06/16 18:00 06/12/16 11:08 mg/ Sodium Chloride IVPB 100 mls/hr Q8H SHARIF Administration Levetiracetam 500 mg/ Sodium 105 mls @ 420 mls/hr 06/07/16 18:30 06/12/16 06: 10 Chloride IVPB 420 mls/hr Q12H SHARIF Administration Dexmedetomidine HCl 200 mcg/ 50 mls @ 6.25 mls/hr 06/11/16 16:32 06/12/16 04: 00 Sodium Chloride IV 0.192 mcg/kg/hr TITR PRN 6 mls/hr Sedation Titration Protocol 0.2 MCG/KG/HR Norepinephrine Bitartrate 4 mg 254 mls @ 15.24 mls/hr 06/11/16 16:25 17:56 / Dextrose IV 5 mcg/min .[id number] PRN 19.05 mls/hr TITRATE PER MD ORDER Titration Protocol 4 MCG/MIN Vancomycin/Sodium Chloride 1 gm in 200 mls @ 133.333 mls/hr 06/11/16 21:00 08:31 Vancocin IVPB 06/16/16 21:01 133.333 mls/hr Q12H SHARIF Administration Sodium Chloride 1,000 mls @ 80 mls/hr 06/12/16 08:15 06/12/16 08:18 Sodium Chloride 0.9% IV Not Given .[id number] SHARIF Methylprednisolone 40 mg 06/11/16 11:15 06/12/16 11:07 Solu-Medrol IVP 40 mg Q8H SHARIF Administration Pantoprazole Sodium 40 mg 06/05/16 10:00 06/12/16 11:08 Protonix Inj IVP 40 mg DAILY SHARIF Administration - Patient Studies Lab Studies: Microbiology Studies 06/06/16 16:30 Blood Culture - Final Blood NO GROWTH AFTER 5 DAYS Gram Stain - Final TEST NOT PERFORMED 06/06/16 17:00 Blood Culture - Final Blood NO GROWTH AFTER 5 DAYS Gram Stain - Final TEST NOT PERFORMED 06/10/16 04:00 Urine Culture - Final Urine,Catheterized No Growth (<1,000 CFU/ML) Lab Studies 06/12/16 06/12/16 06/12/16 Range/Units 06:15 06:15 05:40 WBC 5.2 (4.8-10.8) K/uL RBC 3.85 (3.80-5.20) Mil/uL Hgb 10.2 L (11.0-16.0) g/dL Hct 33.9 L (34.0-47.0) % MCV 88.1 (81.0-99.0) fL MCH 26.5 L (27.0-31.0) pg MCHC 30.1 L (33.0-37.0) g/dL RDW 22.0 H (11.5-14.5) % Plt Count 209 (130-400) K/uL MPV 8.5 (7.2-11.7) fL Neut % (Auto) 84.0 H (50.0-75.0) % Lymph % (Auto) 11.0 L (20.0-40.0) % Granite % (Auto) 5.0 (0.0-10.0) % Eos % (Auto) 0.0 (0.0-4.0) % Baso % (Auto) 0.0 (0.0-2.0) % Neut # 4.4 (1.8-7.0) K/uL Lymph # 0.6 L (1.0-4.3) K/uL Granite # 0.2 (0.0-0.8) K/uL Eos # 0.0 (0.0-0.7) K/uL Baso # 0.0 (0.0-0.2) K/uL Neutrophils % (Manual) (50-75) % Band Neutrophils % (0-2) % Lymphocytes % (Manual) (20-40) % Monocytes % (Manual) (0-10) % Myelocytes % (0-0) % Platelet Estimate (NORMAL) Hypochromasia (manual) Poikilocytosis (manual Anisocytosis (manual) Microcytosis (manual) Puncture Site Rr pCO2 36 (35-45) mm/Hg pO2 138 H (80-100) mm/Hg HCO3 24.3 (21-28) mmol/L ABG pH 7.42 (7.35-7.45) ABG Total CO2 24.5 (22-28) mmol/L ABG O2 Saturation 99.5 H (95-98) % ABG Base Excess -0.8 (-2.0-3.0) mmol/L ABG Hemoglobin 10.0 L (11.7-17.4) g/dL ABG Carboxyhemoglobin 1.5 (0.5-1.5) % POC ABG HHb (Measured) 0.5 (0.0-5.0) % ABG Methemoglobin 1.6 (0.0-3.0) % Oscar Test Pos ABG Potassium (3.6-5.2) mmol/L A-a O2 Difference 245.0 mm/Hg Respiratory Index 1.8 Hgb O2 Saturation 96.4 (95.0-98.0) % Sodium 141 (132-148) mmol/l Chloride 110 H (98-107) mmol/L Glucose (65-105) mg/dl Lactate (0.7-2.1) mmol/L Mechanical Rate 14 FiO2 60.0 % Tidal Volume 500 PEEP 5 Inspiratory BiPAP Expiratory BiPAP Potassium 4.9 (3.6-5.2) mmol/L Carbon Dioxide 18 L (22-30) mmol/L Anion Gap 18 (10-20) BUN 30 H (7-17) mg/dL Creatinine 1.3 H (0.7-1.2) MG/DL Est GFR ( Amer) 48 Est GFR (Non-Af Amer) 40 Random Glucose 117 H (65-105) mg/dL Calcium 6.7 L (8.6-10.4) mg/dl Phosphorus 4.1 (2.5-4.5) mg/dL Magnesium 1.8 (1.6-2.3) mg/dL Total Bilirubin 0.8 (0.2-1.3) mg/dL AST 22 (14-36) U/L ALT 9 D (9-52) U/L Alkaline Phosphatase 141 H (38-126) U/L Total Protein 5.0 L (6.3-8.3) g/dL Albumin 1.9 L (3.5-5.0) g/dL Globulin 3.0 (2.2-3.9) gm/dL Albumin/Globulin Ratio 0.6 L (1.0-2.1) Arterial Blood Potassium (3.6-5.2) mmol/L 06/11/16 06/11/16 06/11/16 Range/Units 20:54 20:54 18:10 WBC 6.8 (4.8-10.8) K/uL RBC 3.97 (3.80-5.20) Mil/uL Hgb 10.7 L (11.0-16.0) g/dL Hct 35.3 (34.0-47.0) % MCV 88.8 (81.0-99.0) fL MCH 26.8 L (27.0-31.0) pg MCHC 30.2 L (33.0-37.0) g/dL RDW 21.8 H (11.5-14.5) % Plt Count 245 (130-400) K/uL MPV 8.1 (7.2-11.7) fL Neut % (Auto) 88.0 H (50.0-75.0) % Lymph % (Auto) 7.7 L (20.0-40.0) % Granite % (Auto) 3.7 (0.0-10.0) % Eos % (Auto) 0.0 (0.0-4.0) % Baso % (Auto) 0.6 (0.0-2.0) % Neut # 6.0 (1.8-7.0) K/uL Lymph # 0.5 L (1.0-4.3) K/uL Granite # 0.2 (0.0-0.8) K/uL Eos # 0.0 (0.0-0.7) K/uL Baso # 0.0 (0.0-0.2) K/uL Neutrophils % (Manual) 87 H (50-75) % Band Neutrophils % 4 H (0-2) % Lymphocytes % (Manual) 7 L (20-40) % Monocytes % (Manual) 1 (0-10) % Myelocytes % 1 H (0-0) % Platelet Estimate Normal (NORMAL) Hypochromasia (manual) Moderate Poikilocytosis (manual Slight Anisocytosis (manual) Slight Microcytosis (manual) Slight Puncture Site Rra pCO2 43 (35-45) mm/Hg pO2 177 H (80-100) mm/Hg HCO3 23.5 (21-28) mmol/L ABG pH 7.35 (7.35-7.45) ABG Total CO2 25.0 (22-28) mmol/L ABG O2 Saturation 99.6 H (95-98) % ABG Base Excess -1.9 (-2.0-3.0) mmol/L ABG Hemoglobin 10.6 L (11.7-17.4) g/dL ABG Carboxyhemoglobin 1.7 H (0.5-1.5) % POC ABG HHb (Measured) 0.4 (0.0-5.0) % ABG Methemoglobin 1.2 (0.0-3.0) % Oscar Test Pos ABG Potassium (3.6-5.2) mmol/L A-a O2 Difference 197.0 mm/Hg Respiratory Index 1.1 Hgb O2 Saturation 96.8 (95.0-98.0) % Sodium 141 (132-148) mmol/l Chloride 110 H (98-107) mmol/L Glucose (65-105) mg/dl Lactate (0.7-2.1) mmol/L Mechanical Rate 14 FiO2 60.0 % Tidal Volume 500 PEEP 5 Inspiratory BiPAP Expiratory BiPAP Potassium 4.9 (3.6-5.2) mmol/L Carbon Dioxide 19 L (22-30) mmol/L Anion Gap 17 (10-20) BUN 28 H (7-17) mg/dL Creatinine 1.3 H (0.7-1.2) MG/DL Est GFR ( Amer) 48 Est GFR (Non-Af Amer) 40 Random Glucose 122 H (65-105) mg/dL Calcium 6.9 L (8.6-10.4) mg/dl Phosphorus (2.5-4.5) mg/dL Magnesium (1.6-2.3) mg/dL Total Bilirubin (0.2-1.3) mg/dL AST (14-36) U/L ALT (9-52) U/L Alkaline Phosphatase (38-126) U/L Total Protein (6.3-8.3) g/dL Albumin (3.5-5.0) g/dL Globulin (2.2-3.9) gm/dL Albumin/Globulin Ratio (1.0-2.1) Arterial Blood Potassium (3.6-5.2) mmol/L 06/11/16 Range/Units 15:40 WBC (4.8-10.8) K/uL RBC (3.80-5.20) Mil/uL Hgb (11.0-16.0) g/dL Hct (34.0-47.0) % MCV (81.0-99.0) fL MCH (27.0-31.0) pg MCHC (33.0-37.0) g/dL RDW (11.5-14.5) % Plt Count (130-400) K/uL MPV (7.2-11.7) fL Neut % (Auto) (50.0-75.0) % Lymph % (Auto) (20.0-40.0) % Granite % (Auto) (0.0-10.0) % Eos % (Auto) (0.0-4.0) % Baso % (Auto) (0.0-2.0) % Neut # (1.8-7.0) K/uL Lymph # (1.0-4.3) K/uL Granite # (0.0-0.8) K/uL Eos # (0.0-0.7) K/uL Baso # (0.0-0.2) K/uL Neutrophils % (Manual) (50-75) % Band Neutrophils % (0-2) % Lymphocytes % (Manual) (20-40) % Monocytes % (Manual) (0-10) % Myelocytes % (0-0) % Platelet Estimate (NORMAL) Hypochromasia (manual) Poikilocytosis (manual Anisocytosis (manual) Microcytosis (manual) Puncture Site Rra pCO2 59 H (35-45) mm/Hg pO2 68 L (80-100) mm/Hg HCO3 22.3 (21-28) mmol/L ABG pH 7.24 L (7.35-7.45) ABG Total CO2 27.1 (22-28) mmol/L ABG O2 Saturation 96.9 (95-98) % ABG Base Excess -3.1 L (-2.0-3.0) mmol/L ABG Hemoglobin (11.7-17.4) g/dL ABG Carboxyhemoglobin (0.5-1.5) % POC ABG HHb (Measured) (0.0-5.0) % ABG Methemoglobin (0.0-3.0) % Oscar Test Pos ABG Potassium 4.9 (3.6-5.2) mmol/L A-a O2 Difference 72.0 mm/Hg Respiratory Index 1.1 Hgb O2 Saturation (95.0-98.0) % Sodium 143.0 (132-148) mmol/l Chloride 116.0 H (98-107) mmol/L Glucose 104 (65-105) mg/dl Lactate 0.6 L (0.7-2.1) mmol/L Mechanical Rate FiO2 30.0 % Tidal Volume PEEP Inspiratory BiPAP 14 Expiratory BiPAP 7 Potassium (3.6-5.2) mmol/L Carbon Dioxide (22-30) mmol/L Anion Gap (10-20) BUN (7-17) mg/dL Creatinine (0.7-1.2) MG/DL Est GFR ( Amer) Est GFR (Non-Af Amer) Random Glucose (65-105) mg/dL Calcium (8.6-10.4) mg/dl Phosphorus (2.5-4.5) mg/dL Magnesium (1.6-2.3) mg/dL Total Bilirubin (0.2-1.3) mg/dL AST (14-36) U/L ALT (9-52) U/L Alkaline Phosphatase (38-126) U/L Total Protein (6.3-8.3) g/dL Albumin (3.5-5.0) g/dL Globulin (2.2-3.9) gm/dL Albumin/Globulin Ratio (1.0-2.1) Arterial Blood Potassium 4.9 (3.6-5.2) mmol/L Laboratory Results - last 24 hr 06/11/16 06/11/16 06/11/16 15:40 18:10 20:54 WBC 6.8 RBC 3.97 Hgb 10.7 L Hct 35.3 MCV 88.8 MCH 26.8 L MCHC 30.2 L RDW 21.8 H Plt Count 245 MPV 8.1 Neut % (Auto) 88.0 H Lymph % (Auto) 7.7 L Granite % (Auto) 3.7 Eos % (Auto) 0.0 Baso % (Auto) 0.6 Neut # 6.0 Lymph # 0.5 L Granite # 0.2 Eos # 0.0 Baso # 0.0 Neutrophils % (Manual) 87 H Band Neutrophils % 4 H Lymphocytes % (Manual) 7 L Monocytes % (Manual) 1 Myelocytes % 1 H Platelet Estimate Normal Hypochromasia (manual) Moderate Poikilocytosis (manual Slight Anisocytosis (manual) Slight Microcytosis (manual) Slight Puncture Site Rra Rra pCO2 59 H 43 pO2 68 L 177 H HCO3 22.3 23.5 ABG pH 7.24 L 7.35 ABG Total CO2 27.1 25.0 ABG O2 Saturation 96.9 99.6 H ABG Base Excess -3.1 L -1.9 ABG Hemoglobin 10.6 L ABG Carboxyhemoglobin 1.7 H POC ABG HHb (Measured) 0.4 ABG Methemoglobin 1.2 Oscar Test Pos Pos ABG Potassium 4.9 A-a O2 Difference 72.0 197.0 Respiratory Index 1.1 1.1 Hgb O2 Saturation 96.8 Sodium 143.0 Chloride 116.0 H Glucose 104 Lactate 0.6 L Mechanical Rate 14 FiO2 30.0 60.0 Tidal Volume 500 PEEP 5 Inspiratory BiPAP 14 Expiratory BiPAP 7 Potassium Carbon Dioxide Anion Gap BUN Creatinine Est GFR ( Amer) Est GFR (Non-Af Amer) Random Glucose Calcium Phosphorus Magnesium Total Bilirubin AST ALT Alkaline Phosphatase Total Protein Albumin Globulin Albumin/Globulin Ratio Arterial Blood Potassium 4.9 06/11/16 06/12/16 06/12/16 20:54 05:40 06:15 WBC 5.2 RBC 3.85 Hgb 10.2 L Hct 33.9 L MCV 88.1 MCH 26.5 L MCHC 30.1 L RDW 22.0 H Plt Count 209 MPV 8.5 Neut % (Auto) 84.0 H Lymph % (Auto) 11.0 L Granite % (Auto) 5.0 Eos % (Auto) 0.0 Baso % (Auto) 0.0 Neut # 4.4 Lymph # 0.6 L Granite # 0.2 Eos # 0.0 Baso # 0.0 Neutrophils % (Manual) Band Neutrophils % Lymphocytes % (Manual) Monocytes % (Manual) Myelocytes % Platelet Estimate Hypochromasia (manual) Poikilocytosis (manual Anisocytosis (manual) Microcytosis (manual) Puncture Site Rr pCO2 36 pO2 138 H HCO3 24.3 ABG pH 7.42 ABG Total CO2 24.5 ABG O2 Saturation 99.5 H ABG Base Excess -0.8 ABG Hemoglobin 10.0 L ABG Carboxyhemoglobin 1.5 POC ABG HHb (Measured) 0.5 ABG Methemoglobin 1.6 Oscar Test Pos ABG Potassium A-a O2 Difference 245.0 Respiratory Index 1.8 Hgb O2 Saturation 96.4 Sodium 141 Chloride 110 H Glucose Lactate Mechanical Rate 14 FiO2 60.0 Tidal Volume 500 PEEP 5 Inspiratory BiPAP Expiratory BiPAP Potassium 4.9 Carbon Dioxide 19 L Anion Gap 17 BUN 28 H Creatinine 1.3 H Est GFR ( Amer) 48 Est GFR (Non-Af Amer) 40 Random Glucose 122 H Calcium 6.9 L Phosphorus Magnesium Total Bilirubin AST ALT Alkaline Phosphatase Total Protein Albumin Globulin Albumin/Globulin Ratio Arterial Blood Potassium 06/12/16 06:15 WBC RBC Hgb Hct MCV MCH MCHC RDW Plt Count MPV Neut % (Auto) Lymph % (Auto) Granite % (Auto) Eos % (Auto) Baso % (Auto) Neut # Lymph # Granite # Eos # Baso # Neutrophils % (Manual) Band Neutrophils % Lymphocytes % (Manual) Monocytes % (Manual) Myelocytes % Platelet Estimate Hypochromasia (manual) Poikilocytosis (manual Anisocytosis (manual) Microcytosis (manual) Puncture Site pCO2 pO2 HCO3 ABG pH ABG Total CO2 ABG O2 Saturation ABG Base Excess ABG Hemoglobin ABG Carboxyhemoglobin POC ABG HHb (Measured) ABG Methemoglobin Oscar Test ABG Potassium A-a O2 Difference Respiratory Index Hgb O2 Saturation Sodium 141 Chloride 110 H Glucose Lactate Mechanical Rate FiO2 Tidal Volume PEEP Inspiratory BiPAP Expiratory BiPAP Potassium 4.9 Carbon Dioxide 18 L Anion Gap 18 BUN 30 H Creatinine 1.3 H Est GFR ( Amer) 48 Est GFR (Non-Af Amer) 40 Random Glucose 117 H Calcium 6.7 L Phosphorus 4.1 Magnesium 1.8 Total Bilirubin 0.8 AST 22 ALT 9 D Alkaline Phosphatase 141 H Total Protein 5.0 L Albumin 1.9 L Globulin 3.0 Albumin/Globulin Ratio 0.6 L Arterial Blood Potassium Assessment/Plan - Assessment and Plan (Free Text) Assessment: 80 year old female with PMHx of CHF, DM, COPD, HTN, Respiratory failure, recurrent UTIs presented with dehydration, hypernatremia, acute on chronic respiratory failure, and a UTI. Plan: Acute on Chronic Respiratory failure * Patient is currently intubated, current vent settings: PVRC: PEEP 5, RR 14, FiO2 60% * Duonebs Q6H, Solumedrol 40mg IVP Q8H Hypotension * Right IJ inserted * Started on Levophed Left Sided- Pleural Effusion * Left sided- pleural effusion noted on CXR. * Patient underwent thoracentesis on 06/09/16 where 600cc serosanguineous fluid was obtained. Unfortunately, no cultures, cytology, labs were performed on the fluid. * Currently on Primaxin (day 7), Vancomycin Day 1 * Dr. Jiménez consulted for chest tube placement for left pleural effusion- help appreciated. * F/U Chest CT Pneumonia * Left sided pleural effusion/ cannot rule out underlying pneumonia * Currently on Primaxin (day 7), Vancomycin Day 1, F/U vanco trough tomorrow AM UTI - resolved * UA: + nitrates, leukocyte esterases * Rocephin 1 gram daily * Urine culture - 06/04- MRD Proteus * Dr. Cantrell- consulted patient was placed on: Amikacin and Primaxin * Urine culture -06/06- no growth - DC contact precautions Prophylaxis * GI PPX: Protonix 40mg IVP daily * SCDs, Heparin 5000 Q8H * Started Tube Feedings DW Rashawn Griffin DO, PGY-1 <Aminta Jolly - Last Filed: 06/12/16 13:21> CCU Objective - Vital Signs / Intake & Output Vital Signs (Last 4 hours): Vital Signs Pulse Resp BP Pulse Ox 06/12/16 12:06 67 14 113/67 100 06/12/16 12:00 62 14 100 06/12/16 11:06 65 14 99/60 L 100 06/12/16 11:00 76 14 100 06/12/16 10:06 61 14 106/60 100 06/12/16 10:00 60 14 100 Intake and Output (Last 8hrs): Intake & Output 06/11/16 06/12/16 06/12/16 22:59 06:59 14:59 Intake Total 596.2 244.5 84 Output Total 270 190 185 Balance 326.2 54.5 -101 Intake: IV 54 14 Intake, IV Amount 542.2 230.5 84 Right Distal Port 104.4 79.5 48 Internal Jugular Right Medial Port 400 100 Internal Jugular Right Proximal Port 37.8 51 36 Internal Jugular Oral 0 Output: Urine 270 190 185 Urethral (Gonzalez) 270 190 185 - Medications Active Medications: Active Medications Generic Name Dose Route Start Last Admin Trade Name Freq PRN Reason Stop Dose Admin Albuterol/Ipratropium 3 ml 06/11/16 10:45 06/12/16 08:07 Duoneb 3 Mg/0.5 Mg (3 Ml) Ud INH 3 ml RQ6 SHARIF Administration Heparin Sodium (Porcine) 5,000 units 06/12/16 14:00 Heparin SC Q8 SHARIF Imipenem/Cilastatin Sodium 500 100 mls @ 100 mls/hr 06/06/16 18:00 06/12/16 11:08 mg/ Sodium Chloride IVPB 100 mls/hr Q8H SHARIF Administration Levetiracetam 500 mg/ Sodium 105 mls @ 420 mls/hr 06/07/16 18:30 06/12/16 06: 10 Chloride IVPB 420 mls/hr Q12H SHARIF Administration Dexmedetomidine HCl 200 mcg/ 50 mls @ 6.25 mls/hr 06/11/16 16:32 06/12/16 04: 00 Sodium Chloride IV 0.192 mcg/kg/hr TITR PRN 6 mls/hr Sedation Titration Protocol 0.2 MCG/KG/HR Norepinephrine Bitartrate 4 mg 254 mls @ 15.24 mls/hr 06/11/16 16:25 17:56 / Dextrose IV 5 mcg/min .[id number] PRN 19.05 mls/hr TITRATE PER MD ORDER Titration Protocol 4 MCG/MIN Vancomycin/Sodium Chloride 1 gm in 200 mls @ 133.333 mls/hr 06/11/16 21:00 08:31 Vancocin IVPB 06/16/16 21:01 133.333 mls/hr Q12H SHARIF Administration Sodium Chloride 1,000 mls @ 80 mls/hr 06/12/16 08:15 06/12/16 08:18 Sodium Chloride 0.9% IV Not Given .[id number] SHARIF Methylprednisolone 40 mg 06/11/16 11:15 06/12/16 11:07 Solu-Medrol IVP 40 mg Q8H SHARIF Administration Pantoprazole Sodium 40 mg 06/05/16 10:00 06/12/16 11:08 Protonix Inj IVP 40 mg DAILY SHARIF Administration - Patient Studies Lab Studies: Microbiology Studies 06/06/16 16:30 Blood Culture - Final Blood NO GROWTH AFTER 5 DAYS Gram Stain - Final TEST NOT PERFORMED 06/06/16 17:00 Blood Culture - Final Blood NO GROWTH AFTER 5 DAYS Gram Stain - Final TEST NOT PERFORMED 06/10/16 04:00 Urine Culture - Final Urine,Catheterized No Growth (<1,000 CFU/ML) Lab Studies 06/12/16 06/12/16 06/12/16 Range/Units 06:15 06:15 05:40 WBC 5.2 (4.8-10.8) K/uL RBC 3.85 (3.80-5.20) Mil/uL Hgb 10.2 L (11.0-16.0) g/dL Hct 33.9 L (34.0-47.0) % MCV 88.1 (81.0-99.0) fL MCH 26.5 L (27.0-31.0) pg MCHC 30.1 L (33.0-37.0) g/dL RDW 22.0 H (11.5-14.5) % Plt Count 209 (130-400) K/uL MPV 8.5 (7.2-11.7) fL Neut % (Auto) 84.0 H (50.0-75.0) % Lymph % (Auto) 11.0 L (20.0-40.0) % Granite % (Auto) 5.0 (0.0-10.0) % Eos % (Auto) 0.0 (0.0-4.0) % Baso % (Auto) 0.0 (0.0-2.0) % Neut # 4.4 (1.8-7.0) K/uL Lymph # 0.6 L (1.0-4.3) K/uL Granite # 0.2 (0.0-0.8) K/uL Eos # 0.0 (0.0-0.7) K/uL Baso # 0.0 (0.0-0.2) K/uL Neutrophils % (Manual) (50-75) % Band Neutrophils % (0-2) % Lymphocytes % (Manual) (20-40) % Monocytes % (Manual) (0-10) % Myelocytes % (0-0) % Platelet Estimate (NORMAL) Hypochromasia (manual) Poikilocytosis (manual Anisocytosis (manual) Microcytosis (manual) Puncture Site Rr pCO2 36 (35-45) mm/Hg pO2 138 H (80-100) mm/Hg HCO3 24.3 (21-28) mmol/L ABG pH 7.42 (7.35-7.45) ABG Total CO2 24.5 (22-28) mmol/L ABG O2 Saturation 99.5 H (95-98) % ABG Base Excess -0.8 (-2.0-3.0) mmol/L ABG Hemoglobin 10.0 L (11.7-17.4) g/dL ABG Carboxyhemoglobin 1.5 (0.5-1.5) % POC ABG HHb (Measured) 0.5 (0.0-5.0) % ABG Methemoglobin 1.6 (0.0-3.0) % Oscar Test Pos ABG Potassium (3.6-5.2) mmol/L A-a O2 Difference 245.0 mm/Hg Respiratory Index 1.8 Hgb O2 Saturation 96.4 (95.0-98.0) % Sodium 141 (132-148) mmol/l Chloride 110 H (98-107) mmol/L Glucose (65-105) mg/dl Lactate (0.7-2.1) mmol/L Mechanical Rate 14 FiO2 60.0 % Tidal Volume 500 PEEP 5 Inspiratory BiPAP Expiratory BiPAP Potassium 4.9 (3.6-5.2) mmol/L Carbon Dioxide 18 L (22-30) mmol/L Anion Gap 18 (10-20) BUN 30 H (7-17) mg/dL Creatinine 1.3 H (0.7-1.2) MG/DL Est GFR ( Amer) 48 Est GFR (Non-Af Amer) 40 Random Glucose 117 H (65-105) mg/dL Calcium 6.7 L (8.6-10.4) mg/dl Phosphorus 4.1 (2.5-4.5) mg/dL Magnesium 1.8 (1.6-2.3) mg/dL Total Bilirubin 0.8 (0.2-1.3) mg/dL AST 22 (14-36) U/L ALT 9 D (9-52) U/L Alkaline Phosphatase 141 H (38-126) U/L Total Protein 5.0 L (6.3-8.3) g/dL Albumin 1.9 L (3.5-5.0) g/dL Globulin 3.0 (2.2-3.9) gm/dL Albumin/Globulin Ratio 0.6 L (1.0-2.1) Arterial Blood Potassium (3.6-5.2) mmol/L 06/11/16 06/11/16 06/11/16 Range/Units 20:54 20:54 18:10 WBC 6.8 (4.8-10.8) K/uL RBC 3.97 (3.80-5.20) Mil/uL Hgb 10.7 L (11.0-16.0) g/dL Hct 35.3 (34.0-47.0) % MCV 88.8 (81.0-99.0) fL MCH 26.8 L (27.0-31.0) pg MCHC 30.2 L (33.0-37.0) g/dL RDW 21.8 H (11.5-14.5) % Plt Count 245 (130-400) K/uL MPV 8.1 (7.2-11.7) fL Neut % (Auto) 88.0 H (50.0-75.0) % Lymph % (Auto) 7.7 L (20.0-40.0) % Granite % (Auto) 3.7 (0.0-10.0) % Eos % (Auto) 0.0 (0.0-4.0) % Baso % (Auto) 0.6 (0.0-2.0) % Neut # 6.0 (1.8-7.0) K/uL Lymph # 0.5 L (1.0-4.3) K/uL Granite # 0.2 (0.0-0.8) K/uL Eos # 0.0 (0.0-0.7) K/uL Baso # 0.0 (0.0-0.2) K/uL Neutrophils % (Manual) 87 H (50-75) % Band Neutrophils % 4 H (0-2) % Lymphocytes % (Manual) 7 L (20-40) % Monocytes % (Manual) 1 (0-10) % Myelocytes % 1 H (0-0) % Platelet Estimate Normal (NORMAL) Hypochromasia (manual) Moderate Poikilocytosis (manual Slight Anisocytosis (manual) Slight Microcytosis (manual) Slight Puncture Site Rra pCO2 43 (35-45) mm/Hg pO2 177 H (80-100) mm/Hg HCO3 23.5 (21-28) mmol/L ABG pH 7.35 (7.35-7.45) ABG Total CO2 25.0 (22-28) mmol/L ABG O2 Saturation 99.6 H (95-98) % ABG Base Excess -1.9 (-2.0-3.0) mmol/L ABG Hemoglobin 10.6 L (11.7-17.4) g/dL ABG Carboxyhemoglobin 1.7 H (0.5-1.5) % POC ABG HHb (Measured) 0.4 (0.0-5.0) % ABG Methemoglobin 1.2 (0.0-3.0) % Oscar Test Pos ABG Potassium (3.6-5.2) mmol/L A-a O2 Difference 197.0 mm/Hg Respiratory Index 1.1 Hgb O2 Saturation 96.8 (95.0-98.0) % Sodium 141 (132-148) mmol/l Chloride 110 H (98-107) mmol/L Glucose (65-105) mg/dl Lactate (0.7-2.1) mmol/L Mechanical Rate 14 FiO2 60.0 % Tidal Volume 500 PEEP 5 Inspiratory BiPAP Expiratory BiPAP Potassium 4.9 (3.6-5.2) mmol/L Carbon Dioxide 19 L (22-30) mmol/L Anion Gap 17 (10-20) BUN 28 H (7-17) mg/dL Creatinine 1.3 H (0.7-1.2) MG/DL Est GFR ( Amer) 48 Est GFR (Non-Af Amer) 40 Random Glucose 122 H (65-105) mg/dL Calcium 6.9 L (8.6-10.4) mg/dl Phosphorus (2.5-4.5) mg/dL Magnesium (1.6-2.3) mg/dL Total Bilirubin (0.2-1.3) mg/dL AST (14-36) U/L ALT (9-52) U/L Alkaline Phosphatase (38-126) U/L Total Protein (6.3-8.3) g/dL Albumin (3.5-5.0) g/dL Globulin (2.2-3.9) gm/dL Albumin/Globulin Ratio (1.0-2.1) Arterial Blood Potassium (3.6-5.2) mmol/L 06/11/16 Range/Units 15:40 WBC (4.8-10.8) K/uL RBC (3.80-5.20) Mil/uL Hgb (11.0-16.0) g/dL Hct (34.0-47.0) % MCV (81.0-99.0) fL MCH (27.0-31.0) pg MCHC (33.0-37.0) g/dL RDW (11.5-14.5) % Plt Count (130-400) K/uL MPV (7.2-11.7) fL Neut % (Auto) (50.0-75.0) % Lymph % (Auto) (20.0-40.0) % Granite % (Auto) (0.0-10.0) % Eos % (Auto) (0.0-4.0) % Baso % (Auto) (0.0-2.0) % Neut # (1.8-7.0) K/uL Lymph # (1.0-4.3) K/uL Granite # (0.0-0.8) K/uL Eos # (0.0-0.7) K/uL Baso # (0.0-0.2) K/uL Neutrophils % (Manual) (50-75) % Band Neutrophils % (0-2) % Lymphocytes % (Manual) (20-40) % Monocytes % (Manual) (0-10) % Myelocytes % (0-0) % Platelet Estimate (NORMAL) Hypochromasia (manual) Poikilocytosis (manual Anisocytosis (manual) Microcytosis (manual) Puncture Site Rra pCO2 59 H (35-45) mm/Hg pO2 68 L (80-100) mm/Hg HCO3 22.3 (21-28) mmol/L ABG pH 7.24 L (7.35-7.45) ABG Total CO2 27.1 (22-28) mmol/L ABG O2 Saturation 96.9 (95-98) % ABG Base Excess -3.1 L (-2.0-3.0) mmol/L ABG Hemoglobin (11.7-17.4) g/dL ABG Carboxyhemoglobin (0.5-1.5) % POC ABG HHb (Measured) (0.0-5.0) % ABG Methemoglobin (0.0-3.0) % Oscar Test Pos ABG Potassium 4.9 (3.6-5.2) mmol/L A-a O2 Difference 72.0 mm/Hg Respiratory Index 1.1 Hgb O2 Saturation (95.0-98.0) % Sodium 143.0 (132-148) mmol/l Chloride 116.0 H (98-107) mmol/L Glucose 104 (65-105) mg/dl Lactate 0.6 L (0.7-2.1) mmol/L Mechanical Rate FiO2 30.0 % Tidal Volume PEEP Inspiratory BiPAP 14 Expiratory BiPAP 7 Potassium (3.6-5.2) mmol/L Carbon Dioxide (22-30) mmol/L Anion Gap (10-20) BUN (7-17) mg/dL Creatinine (0.7-1.2) MG/DL Est GFR ( Amer) Est GFR (Non-Af Amer) Random Glucose (65-105) mg/dL Calcium (8.6-10.4) mg/dl Phosphorus (2.5-4.5) mg/dL Magnesium (1.6-2.3) mg/dL Total Bilirubin (0.2-1.3) mg/dL AST (14-36) U/L ALT (9-52) U/L Alkaline Phosphatase (38-126) U/L Total Protein (6.3-8.3) g/dL Albumin (3.5-5.0) g/dL Globulin (2.2-3.9) gm/dL Albumin/Globulin Ratio (1.0-2.1) Arterial Blood Potassium 4.9 (3.6-5.2) mmol/L Laboratory Results - last 24 hr 06/11/16 06/11/16 06/11/16 15:40 18:10 20:54 WBC 6.8 RBC 3.97 Hgb 10.7 L Hct 35.3 MCV 88.8 MCH 26.8 L MCHC 30.2 L RDW 21.8 H Plt Count 245 MPV 8.1 Neut % (Auto) 88.0 H Lymph % (Auto) 7.7 L Granite % (Auto) 3.7 Eos % (Auto) 0.0 Baso % (Auto) 0.6 Neut # 6.0 Lymph # 0.5 L Granite # 0.2 Eos # 0.0 Baso # 0.0 Neutrophils % (Manual) 87 H Band Neutrophils % 4 H Lymphocytes % (Manual) 7 L Monocytes % (Manual) 1 Myelocytes % 1 H Platelet Estimate Normal Hypochromasia (manual) Moderate Poikilocytosis (manual Slight Anisocytosis (manual) Slight Microcytosis (manual) Slight Puncture Site Rra Rra pCO2 59 H 43 pO2 68 L 177 H HCO3 22.3 23.5 ABG pH 7.24 L 7.35 ABG Total CO2 27.1 25.0 ABG O2 Saturation 96.9 99.6 H ABG Base Excess -3.1 L -1.9 ABG Hemoglobin 10.6 L ABG Carboxyhemoglobin 1.7 H POC ABG HHb (Measured) 0.4 ABG Methemoglobin 1.2 Oscar Test Pos Pos ABG Potassium 4.9 A-a O2 Difference 72.0 197.0 Respiratory Index 1.1 1.1 Hgb O2 Saturation 96.8 Sodium 143.0 Chloride 116.0 H Glucose 104 Lactate 0.6 L Mechanical Rate 14 FiO2 30.0 60.0 Tidal Volume 500 PEEP 5 Inspiratory BiPAP 14 Expiratory BiPAP 7 Potassium Carbon Dioxide Anion Gap BUN Creatinine Est GFR ( Amer) Est GFR (Non-Af Amer) Random Glucose Calcium Phosphorus Magnesium Total Bilirubin AST ALT Alkaline Phosphatase Total Protein Albumin Globulin Albumin/Globulin Ratio Arterial Blood Potassium 4.9 06/11/16 06/12/16 06/12/16 20:54 05:40 06:15 WBC 5.2 RBC 3.85 Hgb 10.2 L Hct 33.9 L MCV 88.1 MCH 26.5 L MCHC 30.1 L RDW 22.0 H Plt Count 209 MPV 8.5 Neut % (Auto) 84.0 H Lymph % (Auto) 11.0 L Gran[place] % (Auto) 5.0 Eos % (Auto) 0.0 Baso % (Auto) 0.0 Neut # 4.4 Lymph # 0.6 L [place] # 0.2 Eos # 0.0 Baso # 0.0 Neutrophils % (Manual) Band Neutrophils % Lymphocytes % (Manual) Monocytes % (Manual) Myelocytes % Platelet Estimate Hypochromasia (manual) Poikilocytosis (manual Anisocytosis (manual) Microcytosis (manual) Puncture Site Rr pCO2 36 pO2 138 H HCO3 24.3 ABG pH 7.42 ABG Total CO2 24.5 ABG O2 Saturation 99.5 H ABG Base Excess -0.8 ABG Hemoglobin 10.0 L ABG Carboxyhemoglobin 1.5 POC ABG HHb (Measured) 0.5 ABG Methemoglobin 1.6 Socar Test Pos ABG Potassium A-a O2 Difference 245.0 Respiratory Index 1.8 Hgb O2 Saturation 96.4 Sodium 141 Chloride 110 H Glucose Lactate Mechanical Rate 14 FiO2 60.0 Tidal Volume 500 PEEP 5 Inspiratory BiPAP Expiratory BiPAP Potassium 4.9 Carbon Dioxide 19 L Anion Gap 17 BUN 28 H Creatinine 1.3 H Est GFR ( Amer) 48 Est GFR (Non-Af Amer) 40 Random Glucose 122 H Calcium 6.9 L Phosphorus Magnesium Total Bilirubin AST ALT Alkaline Phosphatase Total Protein Albumin Globulin Albumin/Globulin Ratio Arterial Blood Potassium 06/12/16 06:15 WBC RBC Hgb Hct MCV MCH MCHC RDW Plt Count MPV Neut % (Auto) Lymph % (Auto) Granite % (Auto) Eos % (Auto) Baso % (Auto) Neut # Lymph # Granite # Eos # Baso # Neutrophils % (Manual) Band Neutrophils % Lymphocytes % (Manual) Monocytes % (Manual) Myelocytes % Platelet Estimate Hypochromasia (manual) Poikilocytosis (manual Anisocytosis (manual) Microcytosis (manual) Puncture Site pCO2 pO2 HCO3 ABG pH ABG Total CO2 ABG O2 Saturation ABG Base Excess ABG Hemoglobin ABG Carboxyhemoglobin POC ABG HHb (Measured) ABG Methemoglobin Oscar Test ABG Potassium A-a O2 Difference Respiratory Index Hgb O2 Saturation Sodium 141 Chloride 110 H Glucose Lactate Mechanical Rate FiO2 Tidal Volume PEEP Inspiratory BiPAP Expiratory BiPAP Potassium 4.9 Carbon Dioxide 18 L Anion Gap 18 BUN 30 H Creatinine 1.3 H Est GFR ( Amer) 48 Est GFR (Non-Af Amer) 40 Random Glucose 117 H Calcium 6.7 L Phosphorus 4.1 Magnesium 1.8 Total Bilirubin 0.8 AST 22 ALT 9 D Alkaline Phosphatase 141 H Total Protein 5.0 L Albumin 1.9 L Globulin 3.0 Albumin/Globulin Ratio 0.6 L Arterial Blood Potassium Attending/Attestation - Attestation I have personally seen and examined this patient.: Yes I have fully participated in the care of the patient.: Yes I have reviewed all pertinent clinical information: Yes Notes (Text): 06/12/16 13:17 Patient seen and examined in the morning. Intubated due to respiratory distress , reaccumulation of pleural fluid on the left side of the chest. Undergoing CT of the chest to better assess effusion, needs CT placement. sepsis: on primaxin and vancomycin, MDR proteus, last cultures negative
--- NOTE | 2016-06-12 15:58 | CT ---
CT chest without IV contrast Indication: Left pleural effusion. Technique: Contiguous axial images were obtained through the chest without intravenous contrast enhancement. Sagittal and coronal reconstructions were generated and reviewed. This CT exam was performed using 1 or more of the falling dose reduction techniques: Automated exposure control, adjustment of the MAA and/or kV according to patient size, and/or use of iterative reconstruction technique. Radiation dose (DLP): 701.76 MGy-cm. Comparison: CT chest without contrast performed 03/05/16, chest x-ray performed 06/12/16 Findings: Examination limited by habitus and patient obliquity. Streak artifact emanating from patient's arms which were not elevated. Endotracheal tube terminates above the easton. Nasogastric tube extends to the expected location of the stomach, distal tip excluded from view. The unenhanced mediastinal and hilar vascular structures appear grossly unremarkable. The heart appears within normal limits of size. Large left pleural effusion and associated compressive consolidation. Small right-sided pleural effusion and associated consolidation. No pneumothorax. Limited visualization of the upper abdomen reveals abdominal ascites. Nodular hepatic contour compatible with cirrhosis. Kyphosis. Osseous demineralization. Multilevel degenerative changes of the spine. Curvature of the thoracic spine convex to the right. Probable T11 vertebral body hemangioma. Lucency within the right T6 transverse process, nonspecific. Suggest further evaluation nuclear medicine bone scan if indicated. Impression: Endotracheal tube terminates above the easton. Nasogastric tube extends to the expected location of the stomach, distal tip excluded from view. Large left pleural effusion and associated compressive consolidation. Small right-sided pleural effusion and associated consolidation. Abdominal ascites. Nodular hepatic contour compatible with cirrhosis. Kyphosis. Osseous demineralization. Multilevel degenerative changes of the spine. Curvature of the thoracic spine convex to the right. Probable T11 vertebral body hemangioma. Lucency within the right T6 transverse process, nonspecific. Suggest further evaluation nuclear medicine bone scan if indicated.
--- NOTE | 2016-06-12 17:22 | CP.PCM.CON ---
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 She was seen in the past for several episodes of urosepsis, CHF, and respiratory failure. In April, she was intubated and placed in the ICU and was extubated once she was stabilized. 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 In the ER, her blood pressure after 2L IV bolus was 82 mm Hg and she was also placed on BiPAP. She was treated for dehydration, hypernatremia, acute on chronic respiratory failure on BiPAP, and UTI in the ICU. The patient was then started on erythromycin and cefepime s/p sepsis and shock. CXRs indicated b/l pleural effusions. Urine and blood cultures were positive for Proteus and Staphylococcal bacteremia respectively. Infectious disease was consulted, azithromycin and cefepime were discontinued, the patient was started on primaxin and amikacin, and was put on contact precautions. Ultrasound-guided left thoracentesis was done for the left pleural effusion by IR and 600 cc of slight serosanguinous fluid were drained. Improvement was noted after the thoracentesis but the patient still remained tachycardic. The patient was taken off BiPAP and treatment for multidrug resistant proteus UTI continued. Hypotension continued despite 3 fluid challenges of 500 cc normal saline. PICC line was supposed to be placed but the patient became lethargic during the procedure. Patient was placed back on BiPAP and ABGs showed respiratory failure. She was intubated, a central line was placed in the right IJ, and she was started on Levophed and Precedex. The last urine culture did not show any growth and the patient was removed from contact isolation. The patient was sedated, intubated secondary to respiratory failure, and remained hypotensive on vasopressors. Most recent CXR reveals large, loculated left pleural effusion, consolidative changes in the left mid-lower lung zones, and patchy consolidative changes within the right lung base. At time of examination patient was intubated on 60% FIO2 and PEEP of 5. Patient responsive to noxious stimuli. Past medical history: CHF, COPD, HTN, pneumonia, chronic kidney disease, seizures (last one in 2013), multiple sclerosis, arthritis Surgeries: Tonsillectomy Allergies: NKDA Social history: The patient denies history of tobacco, alcohol, or recreational drug use. Review of Systems - Review of Systems Systems not reviewed;Unavailable: Intubated Past Patient History - Infectious Disease Hx of Infectious Diseases: None - Tetanus Immunizations Tetanus Immunization: Unknown - Past Medical History & Family History Past Medical History?: Yes - Past Social History Smoking Status: Never Smoked - CARDIAC Hx Cardiac Disorders: Yes Hx Congestive Heart Failure: Yes Hx Hypertension: Yes Hx Hypotension: Yes - PULMONARY Hx Respiratory Disorders: Yes Hx Chronic Obstructive Pulmonary Disease (COPD): Yes Hx Pneumonia: Yes - NEUROLOGICAL Hx Neurological Disorder: Yes Hx Multiple Sclerosis: Yes (? in previous triage) Hx Seizures: Yes (LAST SEIZURE 2013) - HEENT Hx HEENT Problems: Yes (eyeglasses) Hx Cataracts: Yes (LEFT EYE) - RENAL Hx Chronic Kidney Disease: Yes - ENDOCRINE/METABOLIC Hx Endocrine Disorders: No - HEMATOLOGICAL/ONCOLOGICAL Hx Blood Disorders: No - INTEGUMENTARY Hx Dermatological Problems: Yes (HEALED SACRAL STAGE ONE DECUBITI) Other/Comment: healed sacral wound and healed right hip wound, right 5th toe darkened with hard callous. DRESSING TO LT FOOT - MUSCULOSKELETAL/RHEUMATOLOGICAL Hx Musculoskeletal Disorders: Yes Hx Arthritis: Yes Hx Degenerative Joint Disease: Yes Hx Falls: No - GASTROINTESTINAL Hx Gastrointestinal Disorders: Yes Hx Gastroesophageal Reflux: Yes - GENITOURINARY/GYNECOLOGICAL Hx Genitourinary Disorders: Yes (HYSTERECTOMY) Hx Incontinence: Yes Hx Urinary Tract Infection: Yes Other/Comment: UROSPESIS - PSYCHIATRIC Hx Psychophysiologic Disorder: No Hx Substance Use: No - SURGICAL HISTORY Hx Surgeries: Yes Hx Hysterectomy: Yes Hx Tonsillectomy: Yes - ANESTHESIA Hx Anesthesia: Yes Hx Anesthesia Reactions: No Hx Malignant Hyperthermia: No Meds Allergies/Adverse Reactions: Allergies Allergy/AdvReac Type Severity Reaction Status Date / Time No Known Allergies Allergy Verified 06/04/16 16:59 - Medications Medications: Current Medications Albuterol/Ipratropium (Duoneb 3 Mg/0.5 Mg (3 Ml) Ud) 3 ml INH RQ6 [facility] Last Admin: 06/12/16 14:05 Dose: 3 ml Heparin Sodium (Porcine) (Heparin) 5,000 units SC Q8 [facility] Imipenem/Cilastatin Sodium 500 (mg/ Sodium Chloride) 100 mls @ 100 mls/hr IVPB Q8H [facility] Last Admin: 06/12/16 11:08 Dose: 100 mls/hr Levetiracetam 500 mg/ Sodium (Chloride) 105 mls @ 420 mls/hr IVPB Q12H [facility] Last Admin: 06/12/16 06:10 Dose: 420 mls/hr Dexmedetomidine HCl 200 mcg/ (Sodium Chloride) 50 mls @ 6.25 mls/hr IV TITR PRN ; Protocol; 0.2 MCG/KG/HR PRN Reason: Sedation Last Titration: 06/12/16 04:00 Dose: 0.192 mcg/kg/hr, 6 mls/hr Norepinephrine Bitartrate 4 mg (/ Dextrose) 254 mls @ 15.24 mls/hr IV .[id number] PRN; Protocol; 4 MCG/MIN PRN Reason: TITRATE PER MD ORDER Last Titration: 06/11/16 17:56 Dose: 5 mcg/min, 19.05 mls/hr Vancomycin/Sodium Chloride (Vancocin) 1 gm in 200 mls @ 133.333 mls/hr IVPB Q12H [facility] Stop: 06/16/16 21:01 Last Admin: 06/12/16 08:31 Dose: 133.333 mls/hr Sodium Chloride (Sodium Chloride 0.9%) 1,000 mls @ 80 mls/hr IV .[id number] [facility] Last Admin: 06/12/16 08:18 Dose: Not Given Methylprednisolone (Solu-Medrol) 40 mg IVP Q8H [facility] Last Admin: 06/12/16 11:07 Dose: 40 mg Pantoprazole Sodium (Protonix Inj) 40 mg IVP DAILY [facility] Last Admin: 06/12/16 11:08 Dose: 40 mg Physical Exam - Constitutional Additional comments: intubated - Head Exam Head Exam: NORMOCEPHALIC - ENT Exam ENT Exam: Mucous Membranes Moist - Cardiovascular Exam Cardiovascular Exam: +S1, +S2. absent: Tachycardia - GI/Abdominal Exam GI & Abdominal Exam: Hernia, Soft. absent: Guarding - Neurological Exam Additional comments: intubated responsive to noxious stimuli - Skin Skin Exam: Dry, Warm Results - Vital Signs Recent Vital Signs: Last Vital Signs Temp 97.9 F 06/12/16 04:00 Pulse 67 06/12/16 12:06 Resp 14 06/12/16 12:06 BP 113/67 06/12/16 12:06 Pulse Ox 100 06/12/16 12:06 - Labs Result Diagrams: 06/12/16 06:15 06/12/16 06:15 Labs: Laboratory Results - last 24 hr 06/11/16 06/11/16 06/11/16 18:10 20:54 20:54 WBC 6.8 RBC 3.97 Hgb 10.7 L Hct 35.3 MCV 88.8 MCH 26.8 L MCHC 30.2 L RDW 21.8 H Plt Count 245 MPV 8.1 Neut % (Auto) 88.0 H Lymph % (Auto) 7.7 L [place] % (Auto) 3.7 Eos % (Auto) 0.0 Baso % (Auto) 0.6 Neut # 6.0 Lymph # 0.5 L [place] # 0.2 Eos # 0.0 Baso # 0.0 Neutrophils % (Manual) 87 H Band Neutrophils % 4 H Lymphocytes % (Manual) 7 L Monocytes % (Manual) 1 Myelocytes % 1 H Platelet Estimate Normal Hypochromasia (manual) Moderate Poikilocytosis (manual Slight Anisocytosis (manual) Slight Microcytosis (manual) Slight Puncture Site Rra pCO2 43 pO2 177 H HCO3 23.5 ABG pH 7.35 ABG Total CO2 25.0 ABG O2 Saturation 99.6 H ABG Base Excess -1.9 ABG Hemoglobin 10.6 L ABG Carboxyhemoglobin 1.7 H POC ABG HHb (Measured) 0.4 ABG Methemoglobin 1.2 Oscar Test Pos A-a O2 Difference 197.0 Respiratory Index 1.1 Hgb O2 Saturation 96.8 Mechanical Rate 14 FiO2 60.0 Tidal Volume 500 PEEP 5 Sodium 141 Potassium 4.9 Chloride 110 H Carbon Dioxide 19 L Anion Gap 17 BUN 28 H Creatinine 1.3 H Est GFR ( Amer) 48 Est GFR (Non-Af Amer) 40 Random Glucose 122 H Calcium 6.9 L Phosphorus Magnesium Total Bilirubin AST ALT Alkaline Phosphatase Total Protein Albumin Globulin Albumin/Globulin Ratio 06/12/16 06/12/16 06/12/16 05:40 06:15 06:15 WBC 5.2 RBC 3.85 Hgb 10.2 L Hct 33.9 L MCV 88.1 MCH 26.5 L MCHC 30.1 L RDW 22.0 H Plt Count 209 MPV 8.5 Neut % (Auto) 84.0 H Lymph % (Auto) 11.0 L [place] % (Auto) 5.0 Eos % (Auto) 0.0 Baso % (Auto) 0.0 Neut # 4.4 Lymph # 0.6 L [place] # 0.2 Eos # 0.0 Baso # 0.0 Neutrophils % (Manual) Band Neutrophils % Lymphocytes % (Manual) Monocytes % (Manual) Myelocytes % Platelet Estimate Hypochromasia (manual) Poikilocytosis (manual Anisocytosis (manual) Microcytosis (manual) Puncture Site Rr pCO2 36 pO2 138 H HCO3 24.3 ABG pH 7.42 ABG Total CO2 24.5 ABG O2 Saturation 99.5 H ABG Base Excess -0.8 ABG Hemoglobin 10.0 L ABG Carboxyhemoglobin 1.5 POC ABG HHb (Measured) 0.5 ABG Methemoglobin 1.6 Oscar Test Pos A-a O2 Difference 245.0 Respiratory Index 1.8 Hgb O2 Saturation 96.4 Mechanical Rate 14 FiO2 60.0 Tidal Volume 500 PEEP 5 Sodium 141 Potassium 4.9 Chloride 110 H Carbon Dioxide 18 L Anion Gap 18 BUN 30 H Creatinine 1.3 H Est GFR ( Amer) 48 Est GFR (Non-Af Amer) 40 Random Glucose 117 H Calcium 6.7 L Phosphorus 4.1 Magnesium 1.8 Total Bilirubin 0.8 AST 22 ALT 9 D Alkaline Phosphatase 141 H Total Protein 5.0 L Albumin 1.9 L Globulin 3.0 Albumin/Globulin Ratio 0.6 L - Imaging and Cardiology CT scan - chest Status: Image reviewed by me, Report reviewed by me Assessment & Plan - Assessment and Plan (Free Text) Assessment: 80F w/ large left pleural effusion w/ associated compressive consolidation -Recommend bronchoscopy -Depending on bronchoscopy results, pt may need chest tube placement, which is to be done in OR if so. -Abx as per ID -Will continue to follow -Medical management as per ICU team -Tony Jiménez
--- NOTE | 2016-06-12 22:58 | CP.PCM.PN ---
Subjective - Date & Time of Evaluation Date of Evaluation: 06/12/16 Time of Evaluation: 22:57 - Subjective Subjective: CHIEF COMPLAINTS TODAY : afebrile on ventilator. Patient also on pressors. Arousable and responds to vocal commands. SEEN BY CARDIOTHORACIC SURGERY-recommendations noted. s/p RT IJ CATHETER PLACED 06/11/16 s/p thoracentesis 06/09 600cc serosanguinous fluid obtained. NO DRAINS ROS. only on observation HEENT : N.head tilted to the left Resp : No cough, wheezing ,pleuritic CP ,or hemoptysis Cardio : TACHYCARDIC GI : No abd.pain, n/v ,diarrhea or GI bleeding . 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 Musculoskel : No joint swelling , Derm : No rash Psych : Normal affect. Ext : No swelling ,calf pain PE. Pt. is alert awake in no distress. V.S As noted in the chart Head ,ear nose,throat and eyes : Normal. Neck : Supple with normal carotids. Lungs: DIMINISHED BREATH SOUNDS BILATERALLY Heart : S1 & S2 normal with S4. No murmur.TACHYCARDIC Abd : Soft non tender with normal bowel sounds. Neuro : Moves all ext. with no localized deficit. Ext : + EDEMA with intact pulses.Non tender calves Derm : No rashes or decubitus ulcer. LABS/RADIOLOGY: urine culture repeat negative growth WBC 5.2 hemoglobin 10.2 . Creatinine 1.3/BUN 30 .lfts normal transaminases. Alkaline phosphatase improving. .Chest x-ray 06/11/16 moderate left pleural effusion probably consolidation. Peripheral vascular congestion. No pneumothorax. BLOOD CULTURES 06/06/16 NEGATIVE FOR MORE THAN 24 HOURS. BLOOD CULTURES 1;2 SETS +VE SCN URINE CULTURE +VE PROTEUS MIRABILIS -MDR ASSESSMENT/PLAN : IMPRESSION; -RESPIRATORY FAILURE/PNEUMONIA -S/P LEFT-SIDED THORACENTESIS -600 CC SEROSANGUINEOUS FLUID OBTAINED.06/09 - SEPSIS- SYNDROME /HYPOTENSION - gRAM-POSITIVE BACTEREMIA 1 OUT OF 2 SETS POSITIVE (SCN BY pna FISH ) ? CONTAMINANT - [id number]-RESISTANT PROTEUS MIRABILIS -HYPERNATREMIA-DEHYDRATION. -ACUTE ON CHRONIC RESPIRATORY FAILURE -R/O LEFT SIDE WITH PARAPNEUMONIC EFFUSION. -CHF -DM. -HX MANISH- MASTOIDITIS/CHOLESTEATOMA. PLAN; start IV vancomycin 1 g every 12 hourly in view of hypotension and possible HAP. 06/11/16 ON iv pRIMAXIN 500 MG EVERY 8 HOURLY . sputuM gRAM STAIN AND CULTURE-pending. mONITOR RENAL FUNCTIONS CLOSELY. pulmonary toilet. FOB RECOMMENDED BY CARDIOTHORACIC SURGERY/AND APPROPRIATE CULTURES. Objective - Vital Signs/Intake and Output Vital Signs (last 24 hours): Temp Pulse Resp BP Pulse Ox 97.6 F 72 14 100/60 100 06/12/16 16:00 06/12/16 19:00 06/12/16 19:00 06/12/16 18:33 06/12/16 19:00 Intake and Output: 06/12/16 06/13/16 18:59 06:59 Intake Total 469.8 9.8 Output Total 260 30 Balance 209.8 -20.2 - Medications Medications: Current Medications Albuterol/Ipratropium (Duoneb 3 Mg/0.5 Mg (3 Ml) Ud) 3 ml INH RQ6 [facility] Last Admin: 06/12/16 20:24 Dose: 3 ml Heparin Sodium (Porcine) (Heparin) 5,000 units SC Q8 [facility] Last Admin: 06/12/16 15:30 Dose: 5,000 units Imipenem/Cilastatin Sodium 500 (mg/ Sodium Chloride) 100 mls @ 100 mls/hr IVPB Q8H [facility] Last Admin: 06/12/16 18:27 Dose: 100 mls/hr Levetiracetam 500 mg/ Sodium (Chloride) 105 mls @ 420 mls/hr IVPB Q12H [facility] Last Admin: 06/12/16 18:27 Dose: 420 mls/hr Dexmedetomidine HCl 200 mcg/ (Sodium Chloride) 50 mls @ 6.25 mls/hr IV TITR PRN ; Protocol; 0.2 MCG/KG/HR PRN Reason: Sedation Last Admin: 06/12/16 18:31 Dose: 0.2 mcg/kg/hr, 6.25 mls/hr Norepinephrine Bitartrate 4 mg (/ Dextrose) 254 mls @ 15.24 mls/hr IV .[id number] PRN; Protocol; 4 MCG/MIN PRN Reason: TITRATE PER MD ORDER Last Titration: 06/12/16 18:34 Dose: 0.99 mcg/min, 3.8 mls/hr Vancomycin/Sodium Chloride (Vancocin) 1 gm in 200 mls @ 133.333 mls/hr IVPB Q12H [facility] Stop: 06/16/16 21:01 Last Admin: 06/12/16 08:31 Dose: 133.333 mls/hr Sodium Chloride (Sodium Chloride 0.9%) 1,000 mls @ 80 mls/hr IV .[id number] [facility] Last Admin: 06/12/16 08:18 Dose: Not Given Methylprednisolone (Solu-Medrol) 40 mg IVP Q8H [facility] Last Admin: 06/12/16 18:27 Dose: 40 mg Pantoprazole Sodium (Protonix Inj) 40 mg IVP DAILY [facility] Last Admin: 06/12/16 11:08 Dose: 40 mg - Labs Labs: 06/12/16 06:15 06/12/16 06:15 PT 12.2 SECONDS (9.7-12.2) 06/04/16 18:00 INR 1.1 06/04/16 18:00 APTT 29 SECONDS (21-34) 06/04/16 18:00 Assessment and Plan (1) UTI (urinary tract infection) Status: Acute (2) Dehydration Status: Acute (3) Acute respiratory failure Status: Acute (4) COPD (chronic obstructive pulmonary disease) Status: Acute (5) Hypotension Status: Acute (6) Acute onset sepsis Status: Acute
[2016-06-13] MEDS: Albuterol-Ipratrop 3 mg / 0.5 (3 ml) UD INH SCH ×4 (01:08→20:19)
[2016-06-13] MEDS: Dexmedetomidine Hydrochloride 200 MCG in Sodium Chloride 0.9% 48 ML IV PRN ×2 (02:43→17:25)
[2016-06-13] MEDS: MethylPREDNISolone 40 mg Vial IVP SCH ×3 (02:57→17:57)
[2016-06-13 05:35] LABS: ABG ALLEN TEST POS; ABG MECHANICAL RATE 14; ATERIAL BLOOD GAS PEEP 5; CARBOXYHEMOGLOBIN 1.5 % (0.5-1.5); DRAW SITE RR; HHB 0.8 % (0.0-5.0); METHEMOGLOBIN 0.7 % (0.0-3.0)
[2016-06-13] MEDS: levETIRAcetam 500 MG in Sodium Chloride 0.9% 100 ML IVPB SCH ×2 (06:00→17:57)
[2016-06-13 06:38] LABS: BASO % 0.3 % (0.0-2.0); HEMATOCRIT 35.1 % (34.0-47.0); LYMPH # 0.4 K/uL (1.0-4.3); LYMPH % 4.1 % (20.0-40.0); MEAN CELL VOLUME 85.5 fL (81.0-99.0); MEAN CORPUSCULAR HEMOGLOBIN 26.6 pg (27.0-31.0); MEAN CORPUSCULAR HGB CONC 31.1 g/dL (33.0-37.0); MEAN PLATELET VOLUME 8.5 fL (7.2-11.7); MONO # 1.2 K/uL (0.0-0.8); MONO % 12.1 % (0.0-10.0); PLATELET COUNT 255 K/uL (130-400); RED CELL DISTRIBUTION WIDTH 22.1 % (11.5-14.5); WHITE BLOOD COUNT 10.3 K/uL (4.8-10.8)
[2016-06-13 06:44] LABS: INR 1.3
[2016-06-13 07:01] LABS: POTASSIUM 4.8 mmol/L (3.6-5.2)
[2016-06-13 07:03] LABS: BILIRUBIN,TOTAL 0.9 mg/dL (0.2-1.3)
[2016-06-13 07:04] LABS: CALCIUM 6.9 mg/dl (8.6-10.4); MAGNESIUM 1.8 mg/dL (1.6-2.3); PHOSPHOROUS 4.2 mg/dL (2.5-4.5); TOTAL PROTEIN 5.3 g/dL (6.3-8.3)
[2016-06-13 07:10] LABS: ALB/GLOB RATIO 0.7 (1.0-2.1)
--- NOTE | 2016-06-13 07:51 | CP.CCUPN ---
<Nancy Morocho - Last Filed: 06/13/16 09:12> CCU Subjective - Physician Review Subjective (Free Text): Patient was seen and examined at bedside. Intubated PRVC settings: RR14, FiO2 45 %, PEEP 5, Tvolume 500, on 2 mcgs of levophed Bronchoscopy scheduled today at 9am. Pending results of bronchoscopy and if consent is retrieved possible chest tube placement. Patient is no longer on contact isolation. Continue current Primaxin and Vancomycin as per Dr. Cantrell. CCU Objective - Vital Signs / Intake & Output Vital Signs (Last 4 hours): Vital Signs Temp Pulse Resp BP Pulse Ox 06/13/16 07:06 63 14 97/53 L 100 06/13/16 07:00 64 14 100 06/13/16 06:06 79 12 135/81 100 06/13/16 06:00 70 14 06/13/16 05:06 57 L 14 116/62 100 06/13/16 05:00 61 14 100 06/13/16 04:06 66 14 105/60 100 06/13/16 04:00 97.1 F L 61 14 100 Intake and Output (Last 8hrs): Intake & Output 06/12/16 06/13/16 06/13/16 22:59 06:59 14:59 Intake Total 481.0 892.0 93.5 Output Total 185 210 25 Balance 296.0 682.0 68.5 Weight 282 lb 0.163 oz Intake: IV 54 50 Intake, IV Amount 337.0 812.0 93.5 Right Distal Port 35.0 64.0 7.5 Internal Jugular Right Medial Port 260 700 80 Internal Jugular Right Proximal Port 42 48 6 Internal Jugular Oral 0 0 Tube Feeding 90 30 Output: Urine 185 210 25 Urethral (Gonzalez) 185 210 25 - Physical Exam Head: Positive for: Atraumatic, Normocephalic Pupils: Positive for: PERRL Extroacular Muscles: Positive for: EOMI Conjunctiva: Positive for: Normal Mouth: Positive for: Moist Mucous Membranes Respiratory/Chest: Positive for: Decreased Breath Sounds, Other (INTUBATED ) Cardiovascular: Positive for: Tachycardic Upper Extremity: Positive for: Normal Inspection, NORMAL PULSES. Negative for: Cyanosis, Edema Lower Extremity: Positive for: Normal Inspection, NORMAL PULSES. Negative for: Edema, CALF TENDERNESS Neurological: Positive for: GCS=15, CN II-XII Intact Skin: Positive for: Warm, Dry Psychiatric: Positive for: Alert, Oriented x 3 - Medications Active Medications: Active Medications Generic Name Dose Route Start Last Admin Trade Name Freq PRN Reason Stop Dose Admin Albuterol/Ipratropium 3 ml 06/11/16 10:45 06/13/16 07:41 Duoneb 3 Mg/0.5 Mg (3 Ml) Ud INH 3 ml RQ6 SHARIF Administration Heparin Sodium (Porcine) 5,000 units 06/12/16 14:00 06/12/16 22:55 Heparin SC 5,000 units Q8 SHARIF Administration Imipenem/Cilastatin Sodium 500 100 mls @ 100 mls/hr 06/06/16 18:00 06/13/16 02:35 mg/ Sodium Chloride IVPB 100 mls/hr Q8H SHARIF Administration Levetiracetam 500 mg/ Sodium 105 mls @ 420 mls/hr 06/07/16 18:30 06/13/16 06: 00 Chloride IVPB 420 mls/hr Q12H SHARIF Administration Dexmedetomidine HCl 200 mcg/ 50 mls @ 6.25 mls/hr 06/11/16 16:32 06/13/16 02: 43 Sodium Chloride IV 0.2 mcg/kg/hr TITR PRN 6.25 mls/hr Sedation Administration Protocol 0.2 MCG/KG/HR Norepinephrine Bitartrate 4 mg 254 mls @ 15.24 mls/hr 06/11/16 16:25 18:34 / Dextrose IV 0.99 mcg/min .[id number] PRN 3.8 mls/hr TITRATE PER MD ORDER Titration Protocol 4 MCG/MIN Vancomycin/Sodium Chloride 1 gm in 200 mls @ 133.333 mls/hr 06/11/16 21:00 23:29 Vancocin IVPB 06/16/16 21:01 133.333 mls/hr Q12H SHARIF Administration Sodium Chloride 1,000 mls @ 80 mls/hr 06/12/16 08:15 06/12/16 21:00 Sodium Chloride 0.9% IV 80 mls/hr .[id number] SHARIF Administration Methylprednisolone 40 mg 06/11/16 11:15 06/13/16 02:57 Solu-Medrol IVP 40 mg Q8H SHARIF Administration Pantoprazole Sodium 40 mg 06/05/16 10:00 06/12/16 11:08 Protonix Inj IVP 40 mg DAILY SHARIF Administration - Patient Studies Lab Studies: Microbiology Studies 06/11/16 20:27 Gram Stain - Preliminary Trachasp Lab Studies 06/13/16 06/13/16 06/13/16 Range/Units 06:28 06:28 06:26 WBC 10.3 D (4.8-10.8) K/uL RBC 4.10 (3.80-5.20) Mil/uL Hgb 10.9 L (11.0-16.0) g/dL Hct 35.1 (34.0-47.0) % MCV 85.5 D (81.0-99.0) fL MCH 26.6 L (27.0-31.0) pg MCHC 31.1 L (33.0-37.0) g/dL RDW 22.1 H (11.5-14.5) % Plt Count 255 (130-400) K/uL MPV 8.5 (7.2-11.7) fL Neut % (Auto) 83.5 H (50.0-75.0) % Lymph % (Auto) 4.1 L (20.0-40.0) % [place] % (Auto) 12.1 H (0.0-10.0) % Eos % (Auto) 0.0 (0.0-4.0) % Baso % (Auto) 0.3 (0.0-2.0) % Neut # 8.6 H (1.8-7.0) K/uL Lymph # 0.4 L (1.0-4.3) K/uL Charlotte # 1.2 H (0.0-0.8) K/uL Eos # 0.0 (0.0-0.7) K/uL Baso # 0.0 (0.0-0.2) K/uL PT 14.4 H (9.7-12.2) SECONDS INR 1.3 APTT 34 (21-34) SECONDS Puncture Site pCO2 (35-45) mm/Hg pO2 (80-100) mm/Hg HCO3 (21-28) mmol/L ABG pH (7.35-7.45) ABG Total CO2 (22-28) mmol/L ABG O2 Saturation (95-98) % ABG Base Excess (-2.0-3.0) mmol/L ABG Hemoglobin (11.7-17.4) g/dL ABG Carboxyhemoglobin (0.5-1.5) % POC ABG HHb (Measured) (0.0-5.0) % ABG Methemoglobin (0.0-3.0) % Oscar Test A-a O2 Difference mm/Hg Respiratory Index Hgb O2 Saturation (95.0-98.0) % Mechanical Rate FiO2 % Tidal Volume PEEP Sodium (132-148) mmol/L Potassium (3.6-5.2) mmol/L Chloride (98-107) mmol/L Carbon Dioxide (22-30) mmol/L Anion Gap (10-20) BUN (7-17) mg/dL Creatinine (0.7-1.2) MG/DL Est GFR ( Amer) Est GFR (Non-Af Amer) Random Glucose (65-105) mg/dL Calcium (8.6-10.4) mg/dl Phosphorus (2.5-4.5) mg/dL Magnesium (1.6-2.3) mg/dL Total Bilirubin (0.2-1.3) mg/dL AST (14-36) U/L ALT (9-52) U/L Alkaline Phosphatase (38-126) U/L Total Protein (6.3-8.3) g/dL Albumin (3.5-5.0) g/dL Globulin (2.2-3.9) gm/dL Albumin/Globulin Ratio (1.0-2.1) Vancomycin Trough 25.3 H (5.0-10.0) ug/mL 06/13/16 06/13/16 06/12/16 Range/Units 06:26 05:26 06:15 WBC (4.8-10.8) K/uL RBC (3.80-5.20) Mil/uL Hgb (11.0-16.0) g/dL Hct (34.0-47.0) % MCV (81.0-99.0) fL MCH (27.0-31.0) pg MCHC (33.0-37.0) g/dL RDW (11.5-14.5) % Plt Count (130-400) K/uL MPV (7.2-11.7) fL Neut % (Auto) 84.0 H (50.0-75.0) % Lymph % (Auto) 11.0 L (20.0-40.0) % [place] % (Auto) 5.0 (0.0-10.0) % Eos % (Auto) 0.0 (0.0-4.0) % Baso % (Auto) 0.0 (0.0-2.0) % Neut # 4.4 (1.8-7.0) K/uL Lymph # 0.6 L (1.0-4.3) K/uL Charlotte # 0.2 (0.0-0.8) K/uL Eos # 0.0 (0.0-0.7) K/uL Baso # 0.0 (0.0-0.2) K/uL PT (9.7-12.2) SECONDS INR APTT (21-34) SECONDS Puncture Site Rr pCO2 34 L (35-45) mm/Hg pO2 93 (80-100) mm/Hg HCO3 23.9 (21-28) mmol/L ABG pH 7.43 (7.35-7.45) ABG Total CO2 23.6 (22-28) mmol/L ABG O2 Saturation 99.2 H (95-98) % ABG Base Excess -1.3 (-2.0-3.0) mmol/L ABG Hemoglobin 10.6 L (11.7-17.4) g/dL ABG Carboxyhemoglobin 1.5 (0.5-1.5) % POC ABG HHb (Measured) 0.8 (0.0-5.0) % ABG Methemoglobin 0.7 (0.0-3.0) % Oscar Test Pos A-a O2 Difference 185.0 mm/Hg Respiratory Index 2.0 Hgb O2 Saturation 97.0 (95.0-98.0) % Mechanical Rate 14 FiO2 45.0 % Tidal Volume 500 PEEP 5 Sodium 141 (132-148) mmol/L Potassium 4.8 (3.6-5.2) mmol/L Chloride 110 H (98-107) mmol/L Carbon Dioxide 19 L (22-30) mmol/L Anion Gap 17 (10-20) BUN 35 H (7-17) mg/dL Creatinine 1.3 H (0.7-1.2) MG/DL Est GFR ( Amer) 48 Est GFR (Non-Af Amer) 40 Random Glucose 106 H (65-105) mg/dL Calcium 6.9 L (8.6-10.4) mg/dl Phosphorus 4.2 (2.5-4.5) mg/dL Magnesium 1.8 (1.6-2.3) mg/dL Total Bilirubin 0.9 (0.2-1.3) mg/dL AST 22 (14-36) U/L ALT 10 (9-52) U/L Alkaline Phosphatase 144 H (38-126) U/L Total Protein 5.3 L (6.3-8.3) g/dL Albumin 2.1 L (3.5-5.0) g/dL Globulin 3.2 (2.2-3.9) gm/dL Albumin/Globulin Ratio 0.7 L (1.0-2.1) Vancomycin Trough (5.0-10.0) ug/mL Laboratory Results - last 24 hr 06/12/16 06/13/16 06/13/16 06:15 05:26 06:26 WBC RBC Hgb Hct MCV MCH MCHC RDW Plt Count MPV Neut % (Auto) 84.0 H Lymph % (Auto) 11.0 L [place] % (Auto) 5.0 Eos % (Auto) 0.0 Baso % (Auto) 0.0 Neut # 4.4 Lymph # 0.6 L Charlotte # 0.2 Eos # 0.0 Baso # 0.0 PT INR APTT Puncture Site Rr pCO2 34 L pO2 93 HCO3 23.9 ABG pH 7.43 ABG Total CO2 23.6 ABG O2 Saturation 99.2 H ABG Base Excess -1.3 ABG Hemoglobin 10.6 L ABG Carboxyhemoglobin 1.5 POC ABG HHb (Measured) 0.8 ABG Methemoglobin 0.7 Oscar Test Pos A-a O2 Difference 185.0 Respiratory Index 2.0 Hgb O2 Saturation 97.0 Mechanical Rate 14 FiO2 45.0 Tidal Volume 500 PEEP 5 Sodium 141 Potassium 4.8 Chloride 110 H Carbon Dioxide 19 L Anion Gap 17 BUN 35 H Creatinine 1.3 H Est GFR ( Amer) 48 Est GFR (Non-Af Amer) 40 Random Glucose 106 H Calcium 6.9 L Phosphorus 4.2 Magnesium 1.8 Total Bilirubin 0.9 AST 22 ALT 10 Alkaline Phosphatase 144 H Total Protein 5.3 L Albumin 2.1 L Globulin 3.2 Albumin/Globulin Ratio 0.7 L Vancomycin Trough 06/13/16 06/13/16 06/13/16 06:26 06:28 06:28 WBC 10.3 D RBC 4.10 Hgb 10.9 L Hct 35.1 MCV 85.5 D MCH 26.6 L MCHC 31.1 L RDW 22.1 H Plt Count 255 MPV 8.5 Neut % (Auto) 83.5 H Lymph % (Auto) 4.1 L [place] % (Auto) 12.1 H Eos % (Auto) 0.0 Baso % (Auto) 0.3 Neut # 8.6 H Lymph # 0.4 L Charlotte # 1.2 H Eos # 0.0 Baso # 0.0 PT 14.4 H INR 1.3 APTT 34 Puncture Site pCO2 pO2 HCO3 ABG pH ABG Total CO2 ABG O2 Saturation ABG Base Excess ABG Hemoglobin ABG Carboxyhemoglobin POC ABG HHb (Measured) ABG Methemoglobin Oscar Test A-a O2 Difference Respiratory Index Hgb O2 Saturation Mechanical Rate FiO2 Tidal Volume PEEP Sodium Potassium Chloride Carbon Dioxide Anion Gap BUN Creatinine Est GFR ( Amer) Est GFR (Non-Af Amer) Random Glucose Calcium Phosphorus Magnesium Total Bilirubin AST ALT Alkaline Phosphatase Total Protein Albumin Globulin Albumin/Globulin Ratio Vancomycin Trough 25.3 H Assessment/Plan - Assessment and Plan (Free Text) Assessment: 80 year old female with PMHx of CHF, DM, COPD, HTN, Respiratory failure, recurrent UTIs presented with dehydration, hypernatremia, acute on chronic respiratory failure, and a UTI. Plan: Acute on Chronic Respiratory failure * Patient is currently intubated, current vent settings: PVRC: PEEP 5, RR 14, FiO2 30% * Duonebs Q6H, Solumedrol 40mg IVP Q8H Hypotension * Right IJ inserted * Started levophed 2 mcg/mn Left Sided- Pleural Effusion * Left sided- pleural effusion noted on CXR. * Patient underwent thoracentesis on 06/09/16 where 600cc serosanguineous fluid was obtained. Unfortunately, no cultures, cytology, labs were performed on the fluid. * Currently on Primaxin (day 7), Vancomycin Day 2 * Dr. Jiménez consulted for chest tube placement for left pleural effusion- help appreciated. * Chest CT: Endotracheal tube terminates above the [place]. Nasogastric tube extends to the expected location of the stomach, distal tip excluded from view. Large left pleural effusion and associated compressive consolidation. Small right-sided pleural effusion and associated consolidation. Abdominal ascites. Nodular hepatic contour compatible with cirrhosis. Kyphosis. Osseous demineralization. Multilevel degenerative changes of the spine. Curvature of the thoracic spine convex to the right. Probable T11 vertebral body hemangioma. Lucency within the right T6 transverse process, nonspecific. Suggest further evaluation nuclear medicine bone scan if indicated. * Lactate level 0.6 * Bronchoscopy scheduled for today; pending results, possible chest tube placement * F/U procalcitonin Pneumonia * Left sided pleural effusion/ cannot rule out underlying pneumonia * Currently on Primaxin (day 7), Vancomycin Day 2 * Vanco trough- 25.3 UTI - resolved * UA: + nitrates, leukocyte esterases * Rocephin 1 gram daily * Urine culture - 06/04- [facility] Proteus * Dr. Cantrell- consulted patient was placed on: Amikacin and Primaxin * Urine culture -06/06- no growth - DC contact precautions Prophylaxis * GI PPX: Protonix 40mg IVP daily * SCDs, Heparin 5000 Q8H * Started Tube Feedings * Palliative Care Consulted DW Rashawn Griffin DO, PGY-1 <Aminta Jolly - Last Filed: 06/13/16 14:04> CCU Objective - Vital Signs / Intake & Output Vital Signs (Last 4 hours): Vital Signs Temp Pulse Resp BP Pulse Ox 06/13/16 13:00 59 L 14 123/60 100 06/13/16 12:30 70 14 116/63 100 06/13/16 12:00 97.4 F L 61 14 102/53 L 100 06/13/16 11:30 76 14 92/46 L 100 06/13/16 11:20 123/65 06/13/16 11:00 74 15 123/65 100 06/13/16 10:21 53 L 13 127/67 100 06/13/16 10:20 58 L 14 125/68 100 06/13/16 10:19 54 L 13 128/74 100 06/13/16 10:18 55 L 14 126/71 100 06/13/16 10:17 58 L 14 122/65 100 06/13/16 10:10 88 14 97/63 L 100 06/13/16 10:09 72 15 102/63 100 06/13/16 10:08 77 14 92/59 L 100 06/13/16 10:07 66 14 100/68 100 06/13/16 10:06 74 14 108/72 100 06/13/16 10:05 78 14 99/65 L 100 06/13/16 10:04 82 14 97/69 L 100 06/13/16 10:02 70 14 98/63 L 100 06/13/16 10:01 75 12 93/64 L 100 06/13/16 10:00 88 13 99/65 L 100 06/13/16 09:59 65 15 100/70 100 Intake and Output (Last 8hrs): Intake & Output 06/12/16 06/13/16 06/13/16 22:59 06:59 14:59 Intake Total 481.0 892.0 882.9 Output Total 185 210 215 Balance 296.0 682.0 667.9 Weight 282 lb 0.163 oz Intake: IV 54 50 200 Intake, IV Amount 337.0 812.0 682.9 Right Distal Port 35.0 64.0 80.9 Internal Jugular Right Medial Port 260 700 560 Internal Jugular Right Proximal Port 42 48 42 Internal Jugular Oral 0 0 Tube Feeding 90 30 Output: Urine 185 210 215 Urethral (Gonzalez) 185 210 215 - Medications Active Medications: Active Medications Generic Name Dose Route Start Last Admin Trade Name Freq PRN Reason Stop Dose Admin Albuterol/Ipratropium 3 ml 06/11/16 10:45 06/13/16 13:53 Duoneb 3 Mg/0.5 Mg (3 Ml) Ud INH Not Given RQ6 SHARIF Heparin Sodium (Porcine) 5,000 units 06/12/16 14:00 06/12/16 22:55 Heparin SC 5,000 units Q8 SHARIF Administration Imipenem/Cilastatin Sodium 500 100 mls @ 100 mls/hr 06/06/16 18:00 06/13/16 11:14 mg/ Sodium Chloride IVPB 100 mls/hr Q8H SHARIF Administration Levetiracetam 500 mg/ Sodium 105 mls @ 420 mls/hr 06/07/16 18:30 06/13/16 06: 00 Chloride IVPB 420 mls/hr Q12H SHARIF Administration Dexmedetomidine HCl 200 mcg/ 50 mls @ 6.25 mls/hr 06/11/16 16:32 06/13/16 02: 43 Sodium Chloride IV 0.2 mcg/kg/hr TITR PRN 6.25 mls/hr Sedation Administration Protocol 0.2 MCG/KG/HR Norepinephrine Bitartrate 4 mg 254 mls @ 15.24 mls/hr 06/11/16 16:25 11:20 / Dextrose IV 0.99 mcg/min .[id number] PRN 3.77 mls/hr TITRATE PER MD ORDER Administration Protocol 4 MCG/MIN Vancomycin/Sodium Chloride 1 gm in 200 mls @ 133.333 mls/hr 06/11/16 21:00 09:00 Vancocin IVPB 06/16/16 21:01 133.333 mls/hr Q12H SHARIF Administration Sodium Chloride 1,000 mls @ 80 mls/hr 06/12/16 08:15 06/13/16 11:17 Sodium Chloride 0.9% IV Not Given .[id number] SHARIF Methylprednisolone 40 mg 06/11/16 11:15 06/13/16 11:26 Solu-Medrol IVP 40 mg Q8H SHARIF Administration Pantoprazole Sodium 40 mg 06/05/16 10:00 06/13/16 11:14 Protonix Inj IVP 40 mg DAILY SHARIF Administration - Patient Studies Lab Studies: Microbiology Studies 06/11/16 20:27 Gram Stain - Final Trachasp Sputum Culture - Preliminary Gram Negative Jones Lab Studies 06/13/16 06/13/16 06/13/16 Range/Units 09:15 06:28 06:28 WBC 10.3 D (4.8-10.8) K/uL RBC 4.10 (3.80-5.20) Mil/uL Hgb 10.9 L (11.0-16.0) g/dL Hct 35.1 (34.0-47.0) % MCV 85.5 D (81.0-99.0) fL MCH 26.6 L (27.0-31.0) pg MCHC 31.1 L (33.0-37.0) g/dL RDW 22.1 H (11.5-14.5) % Plt Count 255 (130-400) K/uL MPV 8.5 (7.2-11.7) fL Neut % (Auto) 83.5 H (50.0-75.0) % Lymph % (Auto) 4.1 L (20.0-40.0) % [place] % (Auto) 12.1 H (0.0-10.0) % Eos % (Auto) 0.0 (0.0-4.0) % Baso % (Auto) 0.3 (0.0-2.0) % Neut # 8.6 H (1.8-7.0) K/uL Lymph # 0.4 L (1.0-4.3) K/uL [place] # 1.2 H (0.0-0.8) K/uL Eos # 0.0 (0.0-0.7) K/uL Baso # 0.0 (0.0-0.2) K/uL Neutrophils % (Manual) 90 H (50-75) % Lymphocytes % (Manual) 6 L (20-40) % Monocytes % (Manual) 4 (0-10) % Platelet Estimate Normal (NORMAL) Poikilocytosis (manual Slight Anisocytosis (manual) Slight Microcytosis (manual) Slight Macrocytosis (manual) Slight Tear Drop Cells Slight Ovalocytes Slight PT 14.4 H (9.7-12.2) SECONDS INR 1.3 APTT 34 (21-34) SECONDS Puncture Site pCO2 (35-45) mm/Hg pO2 (80-100) mm/Hg HCO3 (21-28) mmol/L ABG pH (7.35-7.45) ABG Total CO2 (22-28) mmol/L ABG O2 Saturation (95-98) % ABG Base Excess (-2.0-3.0) mmol/L ABG Hemoglobin (11.7-17.4) g/dL ABG Carboxyhemoglobin (0.5-1.5) % POC ABG HHb (Measured) (0.0-5.0) % ABG Methemoglobin (0.0-3.0) % Oscar Test A-a O2 Difference mm/Hg Respiratory Index Hgb O2 Saturation (95.0-98.0) % Mechanical Rate FiO2 % Tidal Volume PEEP Sodium (132-148) mmol/L Potassium (3.6-5.2) mmol/L Chloride (98-107) mmol/L Carbon Dioxide (22-30) mmol/L Anion Gap (10-20) BUN (7-17) mg/dL Creatinine (0.7-1.2) MG/DL Est GFR ( Amer) Est GFR (Non-Af Amer) Random Glucose (65-105) mg/dL Calcium (8.6-10.4) mg/dl Phosphorus (2.5-4.5) mg/dL Magnesium (1.6-2.3) mg/dL Total Bilirubin (0.2-1.3) mg/dL AST (14-36) U/L ALT (9-52) U/L Alkaline Phosphatase (38-126) U/L Total Protein (6.3-8.3) g/dL Albumin (3.5-5.0) g/dL Globulin (2.2-3.9) gm/dL Albumin/Globulin Ratio (1.0-2.1) Procalcitonin 0.15 L (0.19-0.49) NG/ML Vancomycin Trough (5.0-10.0) ug/mL 06/13/16 06/13/16 06/13/16 Range/Units 06:26 06:26 05:26 WBC (4.8-10.8) K/uL RBC (3.80-5.20) Mil/uL Hgb (11.0-16.0) g/dL Hct (34.0-47.0) % MCV (81.0-99.0) fL MCH (27.0-31.0) pg MCHC (33.0-37.0) g/dL RDW (11.5-14.5) % Plt Count (130-400) K/uL MPV (7.2-11.7) fL Neut % (Auto) (50.0-75.0) % Lymph % (Auto) (20.0-40.0) % [place] % (Auto) (0.0-10.0) % Eos % (Auto) (0.0-4.0) % Baso % (Auto) (0.0-2.0) % Neut # (1.8-7.0) K/uL Lymph # (1.0-4.3) K/uL [place] # (0.0-0.8) K/uL Eos # (0.0-0.7) K/uL Baso # (0.0-0.2) K/uL Neutrophils % (Manual) (50-75) % Lymphocytes % (Manual) (20-40) % Monocytes % (Manual) (0-10) % Platelet Estimate (NORMAL) Poikilocytosis (manual Anisocytosis (manual) Microcytosis (manual) Macrocytosis (manual) Tear Drop Cells Ovalocytes PT (9.7-12.2) SECONDS INR APTT (21-34) SECONDS Puncture Site Rr pCO2 34 L (35-45) mm/Hg pO2 93 (80-100) mm/Hg HCO3 23.9 (21-28) mmol/L ABG pH 7.43 (7.35-7.45) ABG Total CO2 23.6 (22-28) mmol/L ABG O2 Saturation 99.2 H (95-98) % ABG Base Excess -1.3 (-2.0-3.0) mmol/L ABG Hemoglobin 10.6 L (11.7-17.4) g/dL ABG Carboxyhemoglobin 1.5 (0.5-1.5) % POC ABG HHb (Measured) 0.8 (0.0-5.0) % ABG Methemoglobin 0.7 (0.0-3.0) % Oscar Test Pos A-a O2 Difference 185.0 mm/Hg Respiratory Index 2.0 Hgb O2 Saturation 97.0 (95.0-98.0) % Mechanical Rate 14 FiO2 45.0 % Tidal Volume 500 PEEP 5 Sodium 141 (132-148) mmol/L Potassium 4.8 (3.6-5.2) mmol/L Chloride 110 H (98-107) mmol/L Carbon Dioxide 19 L (22-30) mmol/L Anion Gap 17 (10-20) BUN 35 H (7-17) mg/dL Creatinine 1.3 H (0.7-1.2) MG/DL Est GFR ( Amer) 48 Est GFR (Non-Af Amer) 40 Random Glucose 106 H (65-105) mg/dL Calcium 6.9 L (8.6-10.4) mg/dl Phosphorus 4.2 (2.5-4.5) mg/dL Magnesium 1.8 (1.6-2.3) mg/dL Total Bilirubin 0.9 (0.2-1.3) mg/dL AST 22 (14-36) U/L ALT 10 (9-52) U/L Alkaline Phosphatase 144 H (38-126) U/L Total Protein 5.3 L (6.3-8.3) g/dL Albumin 2.1 L (3.5-5.0) g/dL Globulin 3.2 (2.2-3.9) gm/dL Albumin/Globulin Ratio 0.7 L (1.0-2.1) Procalcitonin (0.19-0.49) NG/ML Vancomycin Trough 25.3 H (5.0-10.0) ug/mL Laboratory Results - last 24 hr 06/13/16 06/13/16 06/13/16 05:26 06:26 06:26 WBC RBC Hgb Hct MCV MCH MCHC RDW Plt Count MPV Neut % (Auto) Lymph % (Auto) [place] % (Auto) Eos % (Auto) Baso % (Auto) Neut # Lymph # [place] # Eos # Baso # Neutrophils % (Manual) Lymphocytes % (Manual) Monocytes % (Manual) Platelet Estimate Poikilocytosis (manual Anisocytosis (manual) Microcytosis (manual) Macrocytosis (manual) Tear Drop Cells Ovalocytes PT INR APTT Puncture Site Rr pCO2 34 L pO2 93 HCO3 23.9 ABG pH 7.43 ABG Total CO2 23.6 ABG O2 Saturation 99.2 H ABG Base Excess -1.3 ABG Hemoglobin 10.6 L ABG Carboxyhemoglobin 1.5 POC ABG HHb (Measured) 0.8 ABG Methemoglobin 0.7 Oscar Test Pos A-a O2 Difference 185.0 Respiratory Index 2.0 Hgb O2 Saturation 97.0 Mechanical Rate 14 FiO2 45.0 Tidal Volume 500 PEEP 5 Sodium 141 Potassium 4.8 Chloride 110 H Carbon Dioxide 19 L Anion Gap 17 BUN 35 H Creatinine 1.3 H Est GFR ( Amer) 48 Est GFR (Non-Af Amer) 40 Random Glucose 106 H Calcium 6.9 L Phosphorus 4.2 Magnesium 1.8 Total Bilirubin 0.9 AST 22 ALT 10 Alkaline Phosphatase 144 H Total Protein 5.3 L Albumin 2.1 L Globulin 3.2 Albumin/Globulin Ratio 0.7 L Procalcitonin Vancomycin Trough 25.3 H 06/13/16 06/13/16 06/13/16 06:28 06:28 09:15 WBC 10.3 D RBC 4.10 Hgb 10.9 L Hct 35.1 MCV 85.5 D MCH 26.6 L MCHC 31.1 L RDW 22.1 H Plt Count 255 MPV 8.5 Neut % (Auto) 83.5 H Lymph % (Auto) 4.1 L [place] % (Auto) 12.1 H Eos % (Auto) 0.0 Baso % (Auto) 0.3 Neut # 8.6 H Lymph # 0.4 L Charlotte # 1.2 H Eos # 0.0 Baso # 0.0 Neutrophils % (Manual) 90 H Lymphocytes % (Manual) 6 L Monocytes % (Manual) 4 Platelet Estimate Normal Poikilocytosis (manual Slight Anisocytosis (manual) Slight Microcytosis (manual) Slight Macrocytosis (manual) Slight Tear Drop Cells Slight Ovalocytes Slight PT 14.4 H INR 1.3 APTT 34 Puncture Site pCO2 pO2 HCO3 ABG pH ABG Total CO2 ABG O2 Saturation ABG Base Excess ABG Hemoglobin ABG Carboxyhemoglobin POC ABG HHb (Measured) ABG Methemoglobin Oscar Test A-a O2 Difference Respiratory Index Hgb O2 Saturation Mechanical Rate FiO2 Tidal Volume PEEP Sodium Potassium Chloride Carbon Dioxide Anion Gap BUN Creatinine Est GFR ( Amer) Est GFR (Non-Af Amer) Random Glucose Calcium Phosphorus Magnesium Total Bilirubin AST ALT Alkaline Phosphatase Total Protein Albumin Globulin Albumin/Globulin Ratio Procalcitonin 0.15 L Vancomycin Trough Attending/Attestation - Attestation I have personally seen and examined this patient.: Yes I have fully participated in the care of the patient.: Yes I have reviewed all pertinent clinical information: Yes Notes (Text): 06/13/16 13:59 Patient seen and examined in ICU, awake, trying to communicate, but she is intubated. Able to tolerate 30% FiO2. Still dependant on levophed 1-2 mcg/mn. wbc count wn, no fever, procalcitonin low. Renal failure with stable creatinine. I spoke over the phone to her sister, Althea, next of kin for the patient, she agrees that her sister has been suffering for a long time, in and out of the hospital all the time with poor quality of life and has been thinking about this for a while. She has made her sister DNR (full code for OR). Wants to go ahead with CT placement and will make further decision latter on, will try to come at some point, but can not now since she is sick.
[2016-06-13 08:10] LABS: NEUTROPHIL 90 % (50-75); TOTAL CELLS COUNTED 100
--- NOTE | 2016-06-13 08:39 | CP.PCM.PN ---
Subjective - Date & Time of Evaluation Date of Evaluation: 06/13/16 Time of Evaluation: 07:25 - Subjective Subjective: Cardiothoracic Surgery: Dr. Jiménez Patient seen and examined this AM. Able to follow commands this AM. Currently on 30% FIO2, PEEP5, on 2 mcgs of levophed. Patient scheduled for bronchoscopy this AM. Objective - Vital Signs/Intake and Output Vital Signs (last 24 hours): Temp Pulse Resp BP Pulse Ox 97.1 F L 70 17 99/59 L 100 06/13/16 04:00 06/13/16 08:06 06/13/16 08:06 06/13/16 08:06 06/13/16 08:06 Intake and Output: 06/13/16 06/13/16 06:59 18:59 Intake Total 1281.2 187.0 Output Total 320 50 Balance 961.2 137.0 - Medications Medications: Current Medications Albuterol/Ipratropium (Duoneb 3 Mg/0.5 Mg (3 Ml) Ud) 3 ml INH RQ6 [facility] Last Admin: 06/13/16 07:41 Dose: 3 ml Heparin Sodium (Porcine) (Heparin) 5,000 units SC Q8 [facility] Last Admin: 06/12/16 22:55 Dose: 5,000 units Imipenem/Cilastatin Sodium 500 (mg/ Sodium Chloride) 100 mls @ 100 mls/hr IVPB Q8H [facility] Last Admin: 06/13/16 02:35 Dose: 100 mls/hr Levetiracetam 500 mg/ Sodium (Chloride) 105 mls @ 420 mls/hr IVPB Q12H [facility] Last Admin: 06/13/16 06:00 Dose: 420 mls/hr Dexmedetomidine HCl 200 mcg/ (Sodium Chloride) 50 mls @ 6.25 mls/hr IV TITR PRN ; Protocol; 0.2 MCG/KG/HR PRN Reason: Sedation Last Admin: 06/13/16 02:43 Dose: 0.2 mcg/kg/hr, 6.25 mls/hr Norepinephrine Bitartrate 4 mg (/ Dextrose) 254 mls @ 15.24 mls/hr IV .[id number] PRN; Protocol; 4 MCG/MIN PRN Reason: TITRATE PER MD ORDER Last Titration: 06/12/16 18:34 Dose: 0.99 mcg/min, 3.8 mls/hr Vancomycin/Sodium Chloride (Vancocin) 1 gm in 200 mls @ 133.333 mls/hr IVPB Q12H [facility] Stop: 06/16/16 21:01 Last Admin: 06/12/16 23:29 Dose: 133.333 mls/hr Sodium Chloride (Sodium Chloride 0.9%) 1,000 mls @ 80 mls/hr IV .[id number] [facility] Last Admin: 06/12/16 21:00 Dose: 80 mls/hr Methylprednisolone (Solu-Medrol) 40 mg IVP Q8H [facility] Last Admin: 06/13/16 02:57 Dose: 40 mg Pantoprazole Sodium (Protonix Inj) 40 mg IVP DAILY [facility] Last Admin: 06/12/16 11:08 Dose: 40 mg - Labs Labs: 06/13/16 06:28 06/13/16 06:26 PT 14.4 SECONDS (9.7-12.2) H 06/13/16 06:28 INR 1.3 06/13/16 06:28 APTT 34 SECONDS (21-34) 06/13/16 06:28 - Constitutional Appears: Other (intubated) - Head Exam Head Exam: NORMOCEPHALIC - ENT Exam ENT Exam: Mucous Membranes Moist - Respiratory Exam Respiratory Exam: NORMAL BREATHING PATTERN - Cardiovascular Exam Cardiovascular Exam: +S1, +S2 - GI/Abdominal Exam GI & Abdominal Exam: Soft, Hernia - Extremities Exam Extremities Exam: Pedal Edema - Neurological Exam Neurological Exam: Alert, Awake - Skin Skin Exam: Dry, Normal Color Assessment and Plan - Assessment and Plan (Free Text) Assessment: 80F w/ large left pleural effusion w/ associated compressive consolidation -Scheduled for bedside bronchoscopy this AM -Depending on bronchoscopy results, pt may need chest tube placement, which is to be done in OR if so. -Abx as per ID -Will continue to follow -Medical management as per ICU team -Tony Jiménez
[2016-06-13] MEDS ORDERED: Midazolam 2 MG/2 ML VIAL IVP ONE (08:48)
[2016-06-13] MEDS ORDERED: Propofol 10 mg/ml Inj (100 ml) IV SCH (09:00)
[2016-06-13] MEDS ORDERED: Propofol 10 mg/ml Inj (20 ML) IV ONE (09:00)
[2016-06-13] MEDS: Vancomycin 1 gm/NS 200 ml 1 GM/200 ML BAG IVPB SCH (09:00)
[2016-06-13] MEDS ORDERED: Lidocaine 2% Inj (20ml) ONE (09:02)
[2016-06-13] MEDS ORDERED: EPINEPHrine 1 mg/ml (1:1000) Inj ONE (09:02)
[2016-06-13] MEDS: Sodium Chloride 0.9% 1,000 ML IV SCH ×2 (11:17→21:04)
--- NOTE | 2016-06-13 12:16 | CP.PCM.CON ---
History of Present Illness - History of Present Illness History of Present Illness: Palliative consult for goals of care discussion Requested by Kenia ALCARAZ Patient is a 80 yo female admitted from [facility] with decreased BP and AMS. The CXR on admission suggested large LLL pleural effusion . CT chest supported findings. Thoracentesis done on 06/09/2016. 600 cc of fluid evacuated. However, patient's respiratory status become unstable during hospital stay and patient needed support from MV and ICU care. Today, patient underwent bedside bronchosopy. The CTwas planned for this PM. Palliative care was asked to assist with goals of care discussion. PMH: UTI, CHF, assistance with MV in April/2016, COPD, pneumonia Soc. Hx: , son mentally unstable, sister Althea appointed by the patient on admission in February to be a health care proxy ( [phone]) Fam. hx: unknown Review of Systems - Review of Systems Systems not reviewed;Unavailable: Intubated Past Patient History - Infectious Disease Hx of Infectious Diseases: None - Tetanus Immunizations Tetanus Immunization: Unknown - Past Medical History & Family History Past Medical History?: Yes - Past Social History Smoking Status: Never Smoked - CARDIAC Hx Cardiac Disorders: Yes Hx Congestive Heart Failure: Yes Hx Hypertension: Yes Hx Hypotension: Yes - PULMONARY Hx Respiratory Disorders: Yes Hx Chronic Obstructive Pulmonary Disease (COPD): Yes Hx Pneumonia: Yes - NEUROLOGICAL Hx Neurological Disorder: Yes Hx Multiple Sclerosis: Yes (? in previous triage) Hx Seizures: Yes (LAST SEIZURE 2013) - HEENT Hx HEENT Problems: Yes (eyeglasses) Hx Cataracts: Yes (LEFT EYE) - RENAL Hx Chronic Kidney Disease: Yes - ENDOCRINE/METABOLIC Hx Endocrine Disorders: No - HEMATOLOGICAL/ONCOLOGICAL Hx Blood Disorders: No - INTEGUMENTARY Hx Dermatological Problems: Yes (HEALED SACRAL STAGE ONE DECUBITI) Other/Comment: healed sacral wound and healed right hip wound, right 5th toe darkened with hard callous. DRESSING TO LT FOOT - MUSCULOSKELETAL/RHEUMATOLOGICAL Hx Musculoskeletal Disorders: Yes Hx Arthritis: Yes Hx Degenerative Joint Disease: Yes Hx Falls: No - GASTROINTESTINAL Hx Gastrointestinal Disorders: Yes Hx Gastroesophageal Reflux: Yes - GENITOURINARY/GYNECOLOGICAL Hx Genitourinary Disorders: Yes (HYSTERECTOMY) Hx Incontinence: Yes Hx Urinary Tract Infection: Yes Other/Comment: UROSPESIS - PSYCHIATRIC Hx Psychophysiologic Disorder: No Hx Substance Use: No - SURGICAL HISTORY Hx Surgeries: Yes Hx Hysterectomy: Yes Hx Tonsillectomy: Yes - ANESTHESIA Hx Anesthesia: Yes Hx Anesthesia Reactions: No Hx Malignant Hyperthermia: No Meds Allergies/Adverse Reactions: Allergies Allergy/AdvReac Type Severity Reaction Status Date / Time No Known Allergies Allergy Verified 06/04/16 16:59 - Medications Medications: Current Medications Albuterol/Ipratropium (Duoneb 3 Mg/0.5 Mg (3 Ml) Ud) 3 ml INH RQ6 [facility] Last Admin: 06/13/16 07:41 Dose: 3 ml Heparin Sodium (Porcine) (Heparin) 5,000 units SC Q8 [facility] Last Admin: 06/12/16 22:55 Dose: 5,000 units Imipenem/Cilastatin Sodium 500 (mg/ Sodium Chloride) 100 mls @ 100 mls/hr IVPB Q8H [facility] Last Admin: 06/13/16 11:14 Dose: 100 mls/hr Levetiracetam 500 mg/ Sodium (Chloride) 105 mls @ 420 mls/hr IVPB Q12H [facility] Last Admin: 06/13/16 06:00 Dose: 420 mls/hr Dexmedetomidine HCl 200 mcg/ (Sodium Chloride) 50 mls @ 6.25 mls/hr IV TITR PRN ; Protocol; 0.2 MCG/KG/HR PRN Reason: Sedation Last Admin: 06/13/16 02:43 Dose: 0.2 mcg/kg/hr, 6.25 mls/hr Norepinephrine Bitartrate 4 mg (/ Dextrose) 254 mls @ 15.24 mls/hr IV .[id number] PRN; Protocol; 4 MCG/MIN PRN Reason: TITRATE PER MD ORDER Last Admin: 06/13/16 11:20 Dose: 0.99 mcg/min, 3.77 mls/hr Vancomycin/Sodium Chloride (Vancocin) 1 gm in 200 mls @ 133.333 mls/hr IVPB Q12H [facility] Stop: 06/16/16 21:01 Last Admin: 06/12/16 23:29 Dose: 133.333 mls/hr Sodium Chloride (Sodium Chloride 0.9%) 1,000 mls @ 80 mls/hr IV .[id number] [facility] Last Admin: 06/13/16 11:17 Dose: Not Given Methylprednisolone (Solu-Medrol) 40 mg IVP Q8H [facility] Last Admin: 06/13/16 11:26 Dose: 40 mg Pantoprazole Sodium (Protonix Inj) 40 mg IVP DAILY [facility] Last Admin: 06/13/16 11:14 Dose: 40 mg Physical Exam - Constitutional Appears: In Acute Distress - Head Exam Head Exam: ATRAUMATIC, NORMAL INSPECTION, NORMOCEPHALIC - Eye Exam Eye Exam: Normal appearance, PERRL Pupil Exam: NORMAL ACCOMODATION, PERRL - ENT Exam ENT Exam: Mucous Membranes Moist, Normal Exam - Neck Exam Neck exam: Positive for: Normal Inspection - Respiratory Exam Additional comments: On MV support - Cardiovascular Exam Cardiovascular Exam: REGULAR RHYTHM, +S1, +S2 - GI/Abdominal Exam GI & Abdominal Exam: Hypoactive Bowel Sounds, Soft - Rectal Exam Rectal Exam: Deferred - Exam Additional comments: Gonzalez cath - Extremities Exam Extremities exam: Positive for: normal inspection - Back Exam Back exam: NORMAL INSPECTION - Neurological Exam Neurological exam: Motor Sensory Deficit - Psychiatric Exam Psychiatric exam: Flat Affect - Skin Skin Exam: Intact, Normal Color, Warm Results - Vital Signs Recent Vital Signs: Last Vital Signs Temp 97.1 F L 06/13/16 04:00 Pulse 70 06/13/16 08:06 Resp 17 06/13/16 08:06 BP 123/65 06/13/16 11:20 Pulse Ox 100 06/13/16 08:06 - Labs Result Diagrams: 06/13/16 06:28 06/13/16 06:26 Labs: Laboratory Results - last 24 hr 06/13/16 06/13/16 06/13/16 05:26 06:26 06:26 WBC RBC Hgb Hct MCV MCH MCHC RDW Plt Count MPV Neut % (Auto) Lymph % (Auto) [place] % (Auto) Eos % (Auto) Baso % (Auto) Neut # Lymph # [place] # Eos # Baso # Neutrophils % (Manual) Lymphocytes % (Manual) Monocytes % (Manual) Platelet Estimate Poikilocytosis (manual Anisocytosis (manual) Microcytosis (manual) Macrocytosis (manual) Tear Drop Cells Ovalocytes PT INR APTT Puncture Site Rr pCO2 34 L pO2 93 HCO3 23.9 ABG pH 7.43 ABG Total CO2 23.6 ABG O2 Saturation 99.2 H ABG Base Excess -1.3 ABG Hemoglobin 10.6 L ABG Carboxyhemoglobin 1.5 POC ABG HHb (Measured) 0.8 ABG Methemoglobin 0.7 Oscar Test Pos A-a O2 Difference 185.0 Respiratory Index 2.0 Hgb O2 Saturation 97.0 Mechanical Rate 14 FiO2 45.0 Tidal Volume 500 PEEP 5 Sodium 141 Potassium 4.8 Chloride 110 H Carbon Dioxide 19 L Anion Gap 17 BUN 35 H Creatinine 1.3 H Est GFR ( Amer) 48 Est GFR (Non-Af Amer) 40 Random Glucose 106 H Calcium 6.9 L Phosphorus 4.2 Magnesium 1.8 Total Bilirubin 0.9 AST 22 ALT 10 Alkaline Phosphatase 144 H Total Protein 5.3 L Albumin 2.1 L Globulin 3.2 Albumin/Globulin Ratio 0.7 L Vancomycin Trough 25.3 H 06/13/16 06/13/16 06:28 06:28 WBC 10.3 D RBC 4.10 Hgb 10.9 L Hct 35.1 MCV 85.5 D MCH 26.6 L MCHC 31.1 L RDW 22.1 H Plt Count 255 MPV 8.5 Neut % (Auto) 83.5 H Lymph % (Auto) 4.1 L [place] % (Auto) 12.1 H Eos % (Auto) 0.0 Baso % (Auto) 0.3 Neut # 8.6 H Lymph # 0.4 L [place] # 1.2 H Eos # 0.0 Baso # 0.0 Neutrophils % (Manual) 90 H Lymphocytes % (Manual) 6 L Monocytes % (Manual) 4 Platelet Estimate Normal Poikilocytosis (manual Slight Anisocytosis (manual) Slight Microcytosis (manual) Slight Macrocytosis (manual) Slight Tear Drop Cells Slight Ovalocytes Slight PT 14.4 H INR 1.3 APTT 34 Puncture Site pCO2 pO2 HCO3 ABG pH ABG Total CO2 ABG O2 Saturation ABG Base Excess ABG Hemoglobin ABG Carboxyhemoglobin POC ABG HHb (Measured) ABG Methemoglobin Oscar Test A-a O2 Difference Respiratory Index Hgb O2 Saturation Mechanical Rate FiO2 Tidal Volume PEEP Sodium Potassium Chloride Carbon Dioxide Anion Gap BUN Creatinine Est GFR ( Amer) Est GFR (Non-Af Amer) Random Glucose Calcium Phosphorus Magnesium Total Bilirubin AST ALT Alkaline Phosphatase Total Protein Albumin Globulin Albumin/Globulin Ratio Vancomycin Trough Assessment & Plan - Assessment and Plan (Free Text) Assessment: Palliative consult. I reviewed medical records, all diagnostic studies, examined patient in the bed and discussed her presentation with Doctor Aquino and patient's niece China. ROS unobtainable from the patient due to intubation. ROS obtained from the nursing and family. Patient is intubated and sedated, unresponsive to stimuli. patient is planned for chest tube insertion today due to large pleural effusion. Patient is unable to participate in decision making process. Her niece Hazel is very much involved and concerned about patient's well being, but patient's sister Althea was made a Proxy by the patient in the past and had to be contacted. With assistance from the niece and [facility] , we were able to obtain the Althea's phone number. Doctor Aquino spoke to Althea over the phone and I was told sister agreed with DNR status.The sister was asked to meet with ICU team. She responded that she could not come, due to lack of transportation. OR team was still to talk to Althea regarding the consent for the chest tube. Impression * This is a chronically ill patient, slowly declining over the last 3-4 months. Patient had 4 admissions since February * Patient does not get much support from the family. The most involved in care is her niece China. However, patient chose her sister Althea to be a Proxy * Patient's wishes for end of life care are not known * Patient's quality of life is very poor. She spent last 4 months between [place] and hospital admissions * For long time patient's sister Althea has asked for a Full Code * After patient has progressively declined, Althea decided on DNR status today in conversation with Doctor Aquino Suggestion * Agree with DNR * Sister Althea to be called for Medical decisions , * The ultimate goal for this very unfortunate patient would be tolerating chest tube and weaning of the MV Will fallow up with the patient and support. Thank you for including me in care of this patient.
--- NOTE | 2016-06-13 12:24 | RAD ---
HISTORY: s/p bronchoscopy COMPARISON: 06/12/2016 FINDINGS: LUNGS: Low lung volumes. Probable subsegmental atelectasis at right base. Right-sided bronchovascular crowding. . Large left pleural effusion. Little aerated left lung visible. PLEURA: Large left pleural effusion. Probable small right pleural effusion. No pneumothorax. CARDIOVASCULAR: Endotracheal tube terminates approximately 2.2 cm above the tracheal easton. Nasogastric tube extends to the left upper abdomen. Right IJ central venous catheter. OSSEOUS STRUCTURES: No significant abnormalities. VISUALIZED UPPER ABDOMEN: Normal. OTHER FINDINGS: None. IMPRESSION: No significant change from prior examination. Large left pleural effusion. Probable small right pleural effusion. Subsegmental atelectasis at right base. ET tube and NG tube are grossly appropriate in position.
[2016-06-13] MEDS ORDERED: Sodium Chloride 0.9% 500 ML IV ONE (13:10)
--- NOTE | 2016-06-13 13:23 | CP.PCM.CON ---
History of Present Illness - History of Present Illness History of Present Illness: Reason for consultation: Left pleural effusion. Requested by Dr. Aquino This is a 80 yo laday with significant multiple comorbities who prsented with a massive left pleural effusion. IR thoracentesis yielded 600cc of serosanguinous fluid with residual effusion in the lower zone associated with atelectasis. Bronch this am-only 10% opening, left lower lobe bronchus(). Familly wants to have a chest tube inserted and remove fluid hoping to fascilitate recovery. Scheduled fora tube thoracostomy in OR(safer) under local +sedation. Past Patient History - Infectious Disease Hx of Infectious Diseases: None - Tetanus Immunizations Tetanus Immunization: Unknown - Past Medical History & Family History Past Medical History?: Yes - Past Social History Smoking Status: Never Smoked - CARDIAC Hx Cardiac Disorders: Yes Hx Congestive Heart Failure: Yes Hx Hypertension: Yes Hx Hypotension: Yes - PULMONARY Hx Respiratory Disorders: Yes Hx Chronic Obstructive Pulmonary Disease (COPD): Yes Hx Pneumonia: Yes - NEUROLOGICAL Hx Neurological Disorder: Yes Hx Multiple Sclerosis: Yes (? in previous triage) Hx Seizures: Yes (LAST SEIZURE 2013) - HEENT Hx HEENT Problems: Yes (eyeglasses) Hx Cataracts: Yes (LEFT EYE) - RENAL Hx Chronic Kidney Disease: Yes - ENDOCRINE/METABOLIC Hx Endocrine Disorders: No - HEMATOLOGICAL/ONCOLOGICAL Hx Blood Disorders: No - INTEGUMENTARY Hx Dermatological Problems: Yes (HEALED SACRAL STAGE ONE DECUBITI) Other/Comment: healed sacral wound and healed right hip wound, right 5th toe darkened with hard callous. DRESSING TO LT FOOT - MUSCULOSKELETAL/RHEUMATOLOGICAL Hx Musculoskeletal Disorders: Yes Hx Arthritis: Yes Hx Degenerative Joint Disease: Yes Hx Falls: No - GASTROINTESTINAL Hx Gastrointestinal Disorders: Yes Hx Gastroesophageal Reflux: Yes - GENITOURINARY/GYNECOLOGICAL Hx Genitourinary Disorders: Yes (HYSTERECTOMY) Hx Incontinence: Yes Hx Urinary Tract Infection: Yes Other/Comment: UROSPESIS - PSYCHIATRIC Hx Psychophysiologic Disorder: No Hx Substance Use: No - SURGICAL HISTORY Hx Surgeries: Yes Hx Hysterectomy: Yes Hx Tonsillectomy: Yes - ANESTHESIA Hx Anesthesia: Yes Hx Anesthesia Reactions: No Hx Malignant Hyperthermia: No Meds Allergies/Adverse Reactions: Allergies Allergy/AdvReac Type Severity Reaction Status Date / Time No Known Allergies Allergy Verified 06/04/16 16:59 - Medications Medications: Current Medications Albuterol/Ipratropium (Duoneb 3 Mg/0.5 Mg (3 Ml) Ud) 3 ml INH RQ6 [facility] Last Admin: 06/13/16 07:41 Dose: 3 ml Heparin Sodium (Porcine) (Heparin) 5,000 units SC Q8 [facility] Last Admin: 06/12/16 22:55 Dose: 5,000 units Imipenem/Cilastatin Sodium 500 (mg/ Sodium Chloride) 100 mls @ 100 mls/hr IVPB Q8H [facility] Last Admin: 06/13/16 11:14 Dose: 100 mls/hr Levetiracetam 500 mg/ Sodium (Chloride) 105 mls @ 420 mls/hr IVPB Q12H [facility] Last Admin: 06/13/16 06:00 Dose: 420 mls/hr Dexmedetomidine HCl 200 mcg/ (Sodium Chloride) 50 mls @ 6.25 mls/hr IV TITR PRN ; Protocol; 0.2 MCG/KG/HR PRN Reason: Sedation Last Admin: 06/13/16 02:43 Dose: 0.2 mcg/kg/hr, 6.25 mls/hr Norepinephrine Bitartrate 4 mg (/ Dextrose) 254 mls @ 15.24 mls/hr IV .[id number] PRN; Protocol; 4 MCG/MIN PRN Reason: TITRATE PER MD ORDER Last Admin: 06/13/16 11:20 Dose: 0.99 mcg/min, 3.77 mls/hr Vancomycin/Sodium Chloride (Vancocin) 1 gm in 200 mls @ 133.333 mls/hr IVPB Q12H [facility] Stop: 06/16/16 21:01 Last Admin: 06/12/16 23:29 Dose: 133.333 mls/hr Sodium Chloride (Sodium Chloride 0.9%) 1,000 mls @ 80 mls/hr IV .[id number] [facility] Last Admin: 06/13/16 11:17 Dose: Not Given Methylprednisolone (Solu-Medrol) 40 mg IVP Q8H [facility] Last Admin: 06/13/16 11:26 Dose: 40 mg Pantoprazole Sodium (Protonix Inj) 40 mg IVP DAILY [facility] Last Admin: 06/13/16 11:14 Dose: 40 mg Results - Vital Signs Recent Vital Signs: Last Vital Signs Temp 97.4 F L 06/13/16 12:00 Pulse 59 L 06/13/16 13:00 Resp 14 06/13/16 13:00 BP 123/60 06/13/16 13:00 Pulse Ox 100 06/13/16 13:00 - Labs Result Diagrams: 06/13/16 06:28 06/13/16 06:26 Labs: Laboratory Results - last 24 hr 06/13/16 06/13/16 06/13/16 05:26 06:26 06:26 WBC RBC Hgb Hct MCV MCH MCHC RDW Plt Count MPV Neut % (Auto) Lymph % (Auto) [place] % (Auto) Eos % (Auto) Baso % (Auto) Neut # Lymph # [place] # Eos # Baso # Neutrophils % (Manual) Lymphocytes % (Manual) Monocytes % (Manual) Platelet Estimate Poikilocytosis (manual Anisocytosis (manual) Microcytosis (manual) Macrocytosis (manual) Tear Drop Cells Ovalocytes PT INR APTT Puncture Site Rr pCO2 34 L pO2 93 HCO3 23.9 ABG pH 7.43 ABG Total CO2 23.6 ABG O2 Saturation 99.2 H ABG Base Excess -1.3 ABG Hemoglobin 10.6 L ABG Carboxyhemoglobin 1.5 POC ABG HHb (Measured) 0.8 ABG Methemoglobin 0.7 Oscar Test Pos A-a O2 Difference 185.0 Respiratory Index 2.0 Hgb O2 Saturation 97.0 Mechanical Rate 14 FiO2 45.0 Tidal Volume 500 PEEP 5 Sodium 141 Potassium 4.8 Chloride 110 H Carbon Dioxide 19 L Anion Gap 17 BUN 35 H Creatinine 1.3 H Est GFR ( Amer) 48 Est GFR (Non-Af Amer) 40 Random Glucose 106 H Calcium 6.9 L Phosphorus 4.2 Magnesium 1.8 Total Bilirubin 0.9 AST 22 ALT 10 Alkaline Phosphatase 144 H Total Protein 5.3 L Albumin 2.1 L Globulin 3.2 Albumin/Globulin Ratio 0.7 L Procalcitonin Vancomycin Trough 25.3 H 06/13/16 06/13/16 06/13/16 06:28 06:28 09:15 WBC 10.3 D RBC 4.10 Hgb 10.9 L Hct 35.1 MCV 85.5 D MCH 26.6 L MCHC 31.1 L RDW 22.1 H Plt Count 255 MPV 8.5 Neut % (Auto) 83.5 H Lymph % (Auto) 4.1 L [place] % (Auto) 12.1 H Eos % (Auto) 0.0 Baso % (Auto) 0.3 Neut # 8.6 H Lymph # 0.4 L [place] # 1.2 H Eos # 0.0 Baso # 0.0 Neutrophils % (Manual) 90 H Lymphocytes % (Manual) 6 L Monocytes % (Manual) 4 Platelet Estimate Normal Poikilocytosis (manual Slight Anisocytosis (manual) Slight Microcytosis (manual) Slight Macrocytosis (manual) Slight Tear Drop Cells Slight Ovalocytes Slight PT 14.4 H INR 1.3 APTT 34 Puncture Site pCO2 pO2 HCO3 ABG pH ABG Total CO2 ABG O2 Saturation ABG Base Excess ABG Hemoglobin ABG Carboxyhemoglobin POC ABG HHb (Measured) ABG Methemoglobin Oscar Test A-a O2 Difference Respiratory Index Hgb O2 Saturation Mechanical Rate FiO2 Tidal Volume PEEP Sodium Potassium Chloride Carbon Dioxide Anion Gap BUN Creatinine Est GFR ( Amer) Est GFR (Non-Af Amer) Random Glucose Calcium Phosphorus Magnesium Total Bilirubin AST ALT Alkaline Phosphatase Total Protein Albumin Globulin Albumin/Globulin Ratio Procalcitonin 0.15 L Vancomycin Trough
[2016-06-13] MEDS ORDERED: Bupivacaine HCl 0.25% PF (10 ml) Inj ONE ×2 (13:32)
[2016-06-13] MEDS ORDERED: Phenylephrine 10 mg/ml Inj ONE (14:22)
[2016-06-13] MEDS ORDERED: Lidocaine 1% Inj (20ml) ONE (14:25)
[2016-06-13] MEDS ORDERED: Sodium Chloride 0.9% 20 ML IV ONE (14:26)
[2016-06-13] MEDS ORDERED: Bacitracin 500 Units/gm Oint Foilpak UD ONE (15:23)
[2016-06-13] MEDS ORDERED: HYDROmorphone 1 mg/ml ISec IVP STA (15:40)
--- NOTE | 2016-06-13 15:45 | PCM.SURG1 ---
Surgeon's Initial Post Op Note - Surgeon's Notes Surgeon: Dr. Jiménez Laborer Landscape: Dr. Euceda PGY-2 Type of Anesthesia: General Endo, Local Pre-Operative Diagnosis: Left pleural effusion Operative Findings: see operative report Post-Operative Diagnosis: Left pleural effusion Operation Performed: Left mini thoracotomy, exploration of pleural cavity, Left chest tube placement Specimen/Specimens Removed: 200cc pleural fluid Estimated Blood Loss: EBL {In ML}: 15 Blood Products Given: N/A Drains Used: Chest Tubes (28F) Post-Op Condition: Fair Date of Surgery/Procedure: 06/13/16 Time of Surgery/Procedure: 15:45
[2016-06-13 16:25] LABS: HEMATOCRIT 36.8 % (34.0-47.0); MEAN CELL VOLUME 86.8 fL (81.0-99.0); MEAN CORPUSCULAR HEMOGLOBIN 26.4 pg (27.0-31.0); MEAN CORPUSCULAR HGB CONC 30.4 g/dL (33.0-37.0); PLATELET COUNT 331 K/uL (130-400); RED CELL DISTRIBUTION WIDTH 21.9 % (11.5-14.5)
--- NOTE | 2016-06-13 16:30 | RAD ---
HISTORY: s/p chest tube placement COMPARISON: 06/13/2016 at 10:49 a.m. FINDINGS: LUNGS: Persistent opacity at right lung base, likely subsegmental atelectasis. Followup advised. PLEURA: Decreased left pleural effusion status post insertion of left chest tube. No pneumothorax identified. Probable small right pleural effusion. CARDIOVASCULAR: ET tube and NG tube unchanged. Right IJ central venous catheter noted. OSSEOUS STRUCTURES: No significant abnormalities. VISUALIZED UPPER ABDOMEN: Normal. OTHER FINDINGS: None. IMPRESSION: Status post left chest tube insertion. No pneumothorax. Decreased left pleural effusion. Otherwise no significant change.
[2016-06-13 16:33] LABS: CHLORIDE 111 mmol/L (98-107); POTASSIUM 4.8 mmol/L (3.6-5.2); SODIUM 141 mmol/L (132-148)
[2016-06-13 16:36] LABS: BLOOD UREA NITROGEN 33 mg/dL (7-17); CARBON DIOXIDE 19 mmol/L (22-30); GFR AFRICAN-AMERICAN 41; GLUCOSE,RANDOM 118 mg/dL (65-105)
[2016-06-13 16:37] LABS: AMYLASE < 30 U/L (30-110); CALCIUM 6.6 mg/dl (8.6-10.4)
--- NOTE | 2016-06-13 17:06 | CP.PCM.PN ---
Subjective - Date & Time of Evaluation Date of Evaluation: 06/13/16 Time of Evaluation: 17:06 - Subjective Subjective: afebrile on ventilator. Patient on pressors. Arousable WITH TACTILE STIMULATION S/P LT. CHEST TUBE -350ML FLUID OBTAINED s/p RT IJ CATHETER PLACED 06/11/16 s/p thoracentesis 06/09 600cc serosanguinous fluid obtained. ROS. only on observation HEENT : N.head tilted to the left Resp : No cough, wheezing ,pleuritic CP ,or hemoptysis LT. CT IN PLACE. Cardio : TACHYCARDIC GI : No abd.pain, n/v ,diarrhea or GI bleeding . WARP SPINNER : No headache, vertigo, focal deficit. Musculoskel : No joint swelling , Derm : No rash Psych : Normal affect. Ext : No swelling ,calf pain PE. Pt. is alert awake in no distress. V.S As noted in the chart Head ,ear nose,throat and eyes : Normal. Neck : Supple with normal carotids. Lungs: RHONCHI B/L +VE LT CHEST TUBE IN PLACE Heart : S1 & S2 normal with S4. No murmur.TACHYCARDIC Abd : Soft non tender with normal bowel sounds. Neuro : Moves all ext. with no localized deficit. Ext : + EDEMA with intact pulses.Non tender calves Derm : No rashes or decubitus ulcer. LABS/RADIOLOGY: urine culture repeat negative growth WBC 10.3 Hemoglobin 10.9 Creatinine 1.3/BUN 35 Vanco trough 25.3 elevated.06/13 . BLOOD CULTURES 06/06/16 NEGATIVE FOR MORE THAN 24 HOURS. BLOOD CULTURES 1;2 SETS +VE SCN URINE CULTURE +VE PROTEUS MIRABILIS -MDR ASSESSMENT/PLAN : IMPRESSION; -RESPIRATORY FAILURE/PNEUMONIA -S/P LEFT-SIDED THORACENTESIS/ chest tube 06/13 - SEPSIS- SYNDROME /HYPOTENSION - [id number]-RESISTANT PROTEUS MIRABILIS -CHF -DM. -HX MANISH- MASTOIDITIS/CHOLESTEATOMA. PLAN; DC IV VANCOMYCIN.06/13 ON iv pRIMAXIN 500 MG EVERY 8 HOURLY . sputuM gRAM STAIN AND CULTURE-pending. mONITOR RENAL FUNCTIONS CLOSELY. pulmonary toilet. F/U PLEURAL FLUID/AND SPUTUM CULTURES AND BRONCHIAL WASHINGS. Objective - Vital Signs/Intake and Output Vital Signs (last 24 hours): Temp Pulse Resp BP Pulse Ox 97.1 F L 71 14 131/74 97 06/13/16 16:00 06/13/16 16:14 06/13/16 16:14 06/13/16 16:14 06/13/16 16:14 Intake and Output: 06/13/16 06/13/16 06:59 18:59 Intake Total 1281.2 1001.7 Output Total 320 465 Balance 961.2 536.7 - Medications Medications: Current Medications Albuterol/Ipratropium (Duoneb 3 Mg/0.5 Mg (3 Ml) Ud) 3 ml INH RQ6 [facility] Last Admin: 06/13/16 13:53 Dose: Not Given Heparin Sodium (Porcine) (Heparin) 5,000 units SC Q8 [facility] Last Admin: 06/12/16 22:55 Dose: 5,000 units Imipenem/Cilastatin Sodium 500 (mg/ Sodium Chloride) 100 mls @ 100 mls/hr IVPB Q8H [facility] Last Admin: 06/13/16 11:14 Dose: 100 mls/hr Levetiracetam 500 mg/ Sodium (Chloride) 105 mls @ 420 mls/hr IVPB Q12H [facility] Last Admin: 06/13/16 06:00 Dose: 420 mls/hr Dexmedetomidine HCl 200 mcg/ (Sodium Chloride) 50 mls @ 6.25 mls/hr IV TITR PRN ; Protocol; 0.2 MCG/KG/HR PRN Reason: Sedation Last Admin: 06/13/16 02:43 Dose: 0.2 mcg/kg/hr, 6.25 mls/hr Norepinephrine Bitartrate 4 mg (/ Dextrose) 254 mls @ 15.24 mls/hr IV .[id number] PRN; Protocol; 4 MCG/MIN PRN Reason: TITRATE PER MD ORDER Last Admin: 06/13/16 11:20 Dose: 0.99 mcg/min, 3.77 mls/hr Sodium Chloride (Sodium Chloride 0.9%) 1,000 mls @ 80 mls/hr IV .[id number] [facility] Last Admin: 06/13/16 11:17 Dose: Not Given Methylprednisolone (Solu-Medrol) 40 mg IVP Q8H [facility] Last Admin: 06/13/16 11:26 Dose: 40 mg Pantoprazole Sodium (Protonix Inj) 40 mg IVP DAILY [facility] Last Admin: 06/13/16 11:14 Dose: 40 mg - Labs Labs: 06/13/16 16:20 06/13/16 16:20 PT 14.4 SECONDS (9.7-12.2) H 06/13/16 06:28 INR 1.3 06/13/16 06:28 APTT 34 SECONDS (21-34) 06/13/16 06:28 Assessment and Plan (1) UTI (urinary tract infection) Status: Acute (2) Dehydration Status: Acute (3) Acute respiratory failure Status: Acute (4) COPD (chronic obstructive pulmonary disease) Status: Acute (5) Hypotension Status: Acute (6) Acute onset sepsis Status: Acute
[2016-06-13 17:28] LABS: BASO % 0.6 % (0.0-2.0); LYMPH % 1.9 % (20.0-40.0)
[2016-06-13 17:29] LABS: BASO # 0.1 K/uL (0.0-0.2); LYMPH # 0.3 K/uL (1.0-4.3); MONO # 1.2 K/uL (0.0-0.8)
[2016-06-13 17:30] LABS: NEUTROPHIL 85 % (50-75); TOTAL CELLS COUNTED 100
--- NOTE | 2016-06-13 18:18 | CP.PCM.PN ---
Subjective - Date & Time of Evaluation Date of Evaluation: 06/13/16 Time of Evaluation: 18:00 - Subjective Subjective: Patient seen and examined in the intensive care unit. Remains intubated on ventilatory support FiO2 30% with saturation 100% Status post chest tube insertion by thoracic surgery Open eyes to stimuli Afebrile On low-dose pressors Objective - Vital Signs/Intake and Output Vital Signs (last 24 hours): Temp Pulse Resp BP Pulse Ox 97.1 F L 62 14 123/72 99 06/13/16 16:00 06/13/16 17:14 06/13/16 17:14 06/13/16 17:14 06/13/16 17:14 Intake and Output: 06/13/16 06/13/16 06:59 18:59 Intake Total 1281.2 1125.7 Output Total 320 465 Balance 961.2 660.7 - Medications Medications: Current Medications Albuterol/Ipratropium (Duoneb 3 Mg/0.5 Mg (3 Ml) Ud) 3 ml INH RQ6 [facility] Last Admin: 06/13/16 13:53 Dose: Not Given Heparin Sodium (Porcine) (Heparin) 5,000 units SC Q8 [facility] Last Admin: 06/12/16 22:55 Dose: 5,000 units Imipenem/Cilastatin Sodium 500 (mg/ Sodium Chloride) 100 mls @ 100 mls/hr IVPB Q8H [facility] Last Admin: 06/13/16 17:14 Dose: 100 mls/hr Levetiracetam 500 mg/ Sodium (Chloride) 105 mls @ 420 mls/hr IVPB Q12H [facility] Last Admin: 06/13/16 17:57 Dose: 420 mls/hr Dexmedetomidine HCl 200 mcg/ (Sodium Chloride) 50 mls @ 6.25 mls/hr IV TITR PRN ; Protocol; 0.2 MCG/KG/HR PRN Reason: Sedation Last Admin: 06/13/16 17:25 Dose: 0.39 mcg/kg/hr, 12.2 mls/hr Norepinephrine Bitartrate 4 mg (/ Dextrose) 254 mls @ 15.24 mls/hr IV .[id number] PRN; Protocol; 4 MCG/MIN PRN Reason: TITRATE PER MD ORDER Last Titration: 06/13/16 17:00 Dose: 3 mcg/min, 11.43 mls/hr Sodium Chloride (Sodium Chloride 0.9%) 1,000 mls @ 80 mls/hr IV .[id number] [facility] Last Admin: 06/13/16 11:17 Dose: Not Given Methylprednisolone (Solu-Medrol) 40 mg IVP Q12H [facility] Last Admin: 06/13/16 17:57 Dose: 40 mg Pantoprazole Sodium (Protonix Inj) 40 mg IVP DAILY [facility] Last Admin: 06/13/16 11:14 Dose: 40 mg - Labs Labs: 06/13/16 16:20 06/13/16 16:20 PT 14.4 SECONDS (9.7-12.2) H 06/13/16 06:28 INR 1.3 06/13/16 06:28 APTT 34 SECONDS (21-34) 06/13/16 06:28 - Head Exam Head Exam: ATRAUMATIC, NORMOCEPHALIC - ENT Exam ENT Exam: Mucous Membranes Moist - Neck Exam Neck Exam: Normal Inspection - Respiratory Exam Respiratory Exam: Decreased Breath Sounds - Cardiovascular Exam Cardiovascular Exam: REGULAR RHYTHM - GI/Abdominal Exam GI & Abdominal Exam: Soft, Normal Bowel Sounds - Extremities Exam Extremities Exam: Pedal Edema Assessment and Plan (1) Acute respiratory failure Assessment & Plan: Status post intubation for respiratory distress/recurrent pleural effusion Chest tube insertion and drainage of fluid by thoracic today Follow up will fluid Continue antibiotics per infectious disease wean off pressors as tolerated Continue feeding Status: Acute (2) Pleural effusion Status: Acute (3) UTI (urinary tract infection) Status: Acute
--- NOTE | 2016-06-14 00:08 | CP.PCM.PN ---
Subjective - Date & Time of Evaluation Date of Evaluation: 06/12/16 Time of Evaluation: 10:01 - Subjective Subjective: Patient was seen and examined at bedside.she was reintubated due to resp failure and SOB, She is currently awake, [facility]: RR14, FiO2 60% , PEEP 5, Tvolume 500. CHEST CT ordered. Cardiothoracic surgery consulted for chest tube placement of left sided pleural effusion. Patient started on tube feedings and fluids. Patient is no longer on contact isolation. Continue current Primaxin and Vancomycin as per Dr. Cantrell. Objective - Vital Signs/Intake and Output Vital Signs (last 24 hours): Temp Pulse Resp BP Pulse Ox 97 F L 80 13 88/37 L 99 06/13/16 17:00 06/13/16 20:21 06/13/16 20:21 06/13/16 20:21 06/13/16 20:21 Intake and Output: 06/13/16 06/14/16 18:59 06:59 Intake Total 1409.1 131.4 Output Total 650 45 Balance 759.1 86.4 - Medications Medications: Current Medications Albuterol/Ipratropium (Duoneb 3 Mg/0.5 Mg (3 Ml) Ud) 3 ml INH RQ6 [facility] Last Admin: 06/13/16 20:19 Dose: 3 ml Heparin Sodium (Porcine) (Heparin) 5,000 units SC Q8 [facility] Last Admin: 06/12/16 22:55 Dose: 5,000 units Imipenem/Cilastatin Sodium 500 (mg/ Sodium Chloride) 100 mls @ 100 mls/hr IVPB Q8H [facility] Last Admin: 06/13/16 17:14 Dose: 100 mls/hr Levetiracetam 500 mg/ Sodium (Chloride) 105 mls @ 420 mls/hr IVPB Q12H [facility] Last Admin: 06/13/16 17:57 Dose: 420 mls/hr Dexmedetomidine HCl 200 mcg/ (Sodium Chloride) 50 mls @ 6.25 mls/hr IV TITR PRN ; Protocol; 0.2 MCG/KG/HR PRN Reason: Sedation Last Admin: 06/13/16 17:25 Dose: 0.39 mcg/kg/hr, 12.2 mls/hr Norepinephrine Bitartrate 4 mg (/ Dextrose) 254 mls @ 15.24 mls/hr IV .[id number] PRN; Protocol; 4 MCG/MIN PRN Reason: TITRATE PER MD ORDER Last Titration: 06/13/16 21:06 Dose: 4 mcg/min, 15.24 mls/hr Sodium Chloride (Sodium Chloride 0.9%) 1,000 mls @ 80 mls/hr IV .[id number] [facility] Last Admin: 06/13/16 21:04 Dose: 80 mls/hr Methylprednisolone (Solu-Medrol) 40 mg IVP Q12H [facility] Last Admin: 06/13/16 17:57 Dose: 40 mg Pantoprazole Sodium (Protonix Inj) 40 mg IVP DAILY [facility] Last Admin: 06/13/16 11:14 Dose: 40 mg - Labs Labs: 06/13/16 16:20 06/13/16 16:20 PT 14.4 SECONDS (9.7-12.2) H 06/13/16 06:28 INR 1.3 06/13/16 06:28 APTT 34 SECONDS (21-34) 06/13/16 06:28 - Constitutional Appears: In Acute Distress, Chronically Ill - Head Exam Head Exam: ATRAUMATIC, NORMAL INSPECTION, NORMOCEPHALIC - Eye Exam Eye Exam: EOMI, Normal appearance, PERRL Pupil Exam: NORMAL ACCOMODATION, PERRL - ENT Exam ENT Exam: Mucous Membranes Moist, Normal Exam - Respiratory Exam Respiratory Exam: Decreased Breath Sounds - Cardiovascular Exam Cardiovascular Exam: Tachycardia, +S1, +S2. absent: Murmur - GI/Abdominal Exam GI & Abdominal Exam: Soft, Normal Bowel Sounds. absent: Tenderness Assessment and Plan (1) UTI (urinary tract infection) Status: Acute (2) Dehydration Status: Acute (3) Hypotension Status: Acute (4) Acute onset sepsis Status: Acute (5) Respiratory failure Status: Acute (6) Hypertension Status: Acute
--- NOTE | 2016-06-14 00:12 | CP.PCM.PN ---
Subjective - Date & Time of Evaluation Date of Evaluation: 06/13/16 Time of Evaluation: 10:01 - Subjective Subjective: Pt seen & evaluated, s/p thoracic surgery, IR thoracentesis yielded 600cc of serosanguinous fluid with residual effusion in the lower zone associated with atelectasis. Bronch this am-only 10% opening, left lower lobe bronchus( ). Familly wants to have a chest tube inserted and remove fluid hoping to fascilitate recovery. Scheduled fora tube thoracostomy in OR(safer) under local +sedation. Objective - Vital Signs/Intake and Output Vital Signs (last 24 hours): Temp Pulse Resp BP Pulse Ox 97 F L 80 13 88/37 L 99 06/13/16 17:00 06/13/16 20:21 06/13/16 20:21 06/13/16 20:21 06/13/16 20:21 Intake and Output: 06/13/16 06/14/16 18:59 06:59 Intake Total 1409.1 131.4 Output Total 650 45 Balance 759.1 86.4 - Medications Medications: Current Medications Albuterol/Ipratropium (Duoneb 3 Mg/0.5 Mg (3 Ml) Ud) 3 ml INH RQ6 [facility] Last Admin: 06/13/16 20:19 Dose: 3 ml Heparin Sodium (Porcine) (Heparin) 5,000 units SC Q8 [facility] Last Admin: 06/12/16 22:55 Dose: 5,000 units Imipenem/Cilastatin Sodium 500 (mg/ Sodium Chloride) 100 mls @ 100 mls/hr IVPB Q8H [facility] Last Admin: 06/13/16 17:14 Dose: 100 mls/hr Levetiracetam 500 mg/ Sodium (Chloride) 105 mls @ 420 mls/hr IVPB Q12H [facility] Last Admin: 06/13/16 17:57 Dose: 420 mls/hr Dexmedetomidine HCl 200 mcg/ (Sodium Chloride) 50 mls @ 6.25 mls/hr IV TITR PRN ; Protocol; 0.2 MCG/KG/HR PRN Reason: Sedation Last Admin: 06/13/16 17:25 Dose: 0.39 mcg/kg/hr, 12.2 mls/hr Norepinephrine Bitartrate 4 mg (/ Dextrose) 254 mls @ 15.24 mls/hr IV .[id number] PRN; Protocol; 4 MCG/MIN PRN Reason: TITRATE PER MD ORDER Last Titration: 06/13/16 21:06 Dose: 4 mcg/min, 15.24 mls/hr Sodium Chloride (Sodium Chloride 0.9%) 1,000 mls @ 80 mls/hr IV .[id number] [facility] Last Admin: 06/13/16 21:04 Dose: 80 mls/hr Methylprednisolone (Solu-Medrol) 40 mg IVP Q12H [facility] Last Admin: 06/13/16 17:57 Dose: 40 mg Pantoprazole Sodium (Protonix Inj) 40 mg IVP DAILY [facility] Last Admin: 06/13/16 11:14 Dose: 40 mg - Labs Labs: 06/13/16 16:20 06/13/16 16:20 PT 14.4 SECONDS (9.7-12.2) H 06/13/16 06:28 INR 1.3 06/13/16 06:28 APTT 34 SECONDS (21-34) 06/13/16 06:28 - Constitutional Appears: No Acute Distress, Chronically Ill - Head Exam Head Exam: ATRAUMATIC, NORMAL INSPECTION, NORMOCEPHALIC - Eye Exam Eye Exam: EOMI, Normal appearance, PERRL Pupil Exam: NORMAL ACCOMODATION, PERRL - Respiratory Exam Respiratory Exam: Decreased Breath Sounds, Respiratory Distress - Cardiovascular Exam Cardiovascular Exam: Tachycardia, +S1, +S2 - GI/Abdominal Exam GI & Abdominal Exam: Soft, Normal Bowel Sounds. absent: Tenderness Assessment and Plan (1) UTI (urinary tract infection) Status: Acute (2) Dehydration Status: Acute (3) Hypotension Status: Acute (4) Acute onset sepsis Status: Acute (5) Respiratory failure Status: Acute (6) Hypertension Status: Acute
[2016-06-14] MEDS: Albuterol-Ipratrop 3 mg / 0.5 (3 ml) UD INH SCH ×4 (01:02→19:12)
[2016-06-14] MEDS: Dexmedetomidine Hydrochloride 200 MCG in Sodium Chloride 0.9% 48 ML IV PRN ×4 (04:30→20:25)
[2016-06-14 04:31] LABS: ABG ALLEN TEST POS; ABG MECHANICAL RATE 14; ATERIAL BLOOD GAS PEEP 5; CARBOXYHEMOGLOBIN 1.7 % (0.5-1.5); DRAW SITE RR; HHB 1.3 % (0.0-5.0)
[2016-06-14] MEDS: MethylPREDNISolone 40 mg Vial IVP SCH ×2 (04:33→17:28)
[2016-06-14 06:23] LABS: POTASSIUM 4.7 mmol/L (3.6-5.2)
[2016-06-14 06:26] LABS: ALB/GLOB RATIO 0.6 (1.0-2.1); BILIRUBIN,TOTAL 0.9 mg/dL (0.2-1.3); CALCIUM 6.3 mg/dl (8.6-10.4); PHOSPHOROUS 4.5 mg/dL (2.5-4.5); TOTAL PROTEIN 5.1 g/dL (6.3-8.3)
[2016-06-14 06:27] LABS: MAGNESIUM 1.8 mg/dL (1.6-2.3)
[2016-06-14] MEDS: levETIRAcetam 500 MG in Sodium Chloride 0.9% 100 ML IVPB SCH ×2 (06:35→18:31)
[2016-06-14 06:54] LABS: BASO # 0.1 K/uL (0.0-0.2); BASO % 0.5 % (0.0-2.0); EOS % 0.1 % (0.0-4.0); LYMPH # 0.4 K/uL (1.0-4.3); LYMPH % 3.7 % (20.0-40.0); MEAN CELL VOLUME 86.9 fL (81.0-99.0); MEAN CORPUSCULAR HEMOGLOBIN 26.1 pg (27.0-31.0); MEAN CORPUSCULAR HGB CONC 30.1 g/dL (33.0-37.0); MEAN PLATELET VOLUME 8.4 fL (7.2-11.7); MONO # 0.8 K/uL (0.0-0.8); MONO % 7.4 % (0.0-10.0); NRBC % 0.1 % (0.0-2.0); PLATELET COUNT 218 K/uL (130-400); RED CELL DISTRIBUTION WIDTH 22.1 % (11.5-14.5); WHITE BLOOD COUNT 11.2 K/uL (4.8-10.8)
[2016-06-14 08:23] LABS: NEUTROPHIL 86 % (50-75); TOTAL CELLS COUNTED 100
--- NOTE | 2016-06-14 08:40 | CP.PCM.PN ---
Subjective - Date & Time of Evaluation Date of Evaluation: 06/14/16 Time of Evaluation: 07:15 - Subjective Subjective: CT Surg: Dr. Jiménez Pt S&E. Responds to verbal stimuli. Currently on 4mcg of levaphed, FIO2 30% and PEEP5. CT drain output: 345cc since insertion. CT dressing c/d/i. Objective - Vital Signs/Intake and Output Vital Signs (last 24 hours): Temp Pulse Resp BP Pulse Ox 97.2 F L 82 13 114/64 100 06/13/16 22:00 06/14/16 08:00 06/14/16 08:00 06/14/16 07:50 06/14/16 08:00 Intake and Output: 06/14/16 06/14/16 06:59 18:59 Intake Total 2050.3 294.8 Output Total 385 10 Balance 1665.3 284.8 - Medications Medications: Current Medications Albuterol/Ipratropium (Duoneb 3 Mg/0.5 Mg (3 Ml) Ud) 3 ml INH RQ6 [facility] Last Admin: 06/14/16 07:41 Dose: 3 ml Heparin Sodium (Porcine) (Heparin) 5,000 units SC Q8 [facility] Last Admin: 06/12/16 22:55 Dose: 5,000 units Imipenem/Cilastatin Sodium 500 (mg/ Sodium Chloride) 100 mls @ 100 mls/hr IVPB Q8H [facility] Last Admin: 06/14/16 01:11 Dose: 100 mls/hr Levetiracetam 500 mg/ Sodium (Chloride) 105 mls @ 420 mls/hr IVPB Q12H [facility] Last Admin: 06/14/16 06:35 Dose: 420 mls/hr Dexmedetomidine HCl 200 mcg/ (Sodium Chloride) 50 mls @ 6.25 mls/hr IV TITR PRN ; Protocol; 0.2 MCG/KG/HR PRN Reason: Sedation Last Admin: 06/14/16 04:30 Dose: 0.39 mcg/kg/hr, 12.2 mls/hr Norepinephrine Bitartrate 4 mg (/ Dextrose) 254 mls @ 15.24 mls/hr IV .[id number] PRN; Protocol; 4 MCG/MIN PRN Reason: TITRATE PER MD ORDER Last Titration: 06/14/16 00:00 Dose: 4 mcg/min, 15.24 mls/hr Sodium Chloride (Sodium Chloride 0.9%) 1,000 mls @ 80 mls/hr IV .[id number] [facility] Last Admin: 06/13/16 21:04 Dose: 80 mls/hr Methylprednisolone (Solu-Medrol) 40 mg IVP Q12H [facility] Last Admin: 06/14/16 04:33 Dose: 40 mg Pantoprazole Sodium (Protonix Inj) 40 mg IVP DAILY [facility] Last Admin: 06/13/16 11:14 Dose: 40 mg - Labs Labs: 06/14/16 06:06 06/14/16 06:06 PT 14.4 SECONDS (9.7-12.2) H 06/13/16 06:28 INR 1.3 06/13/16 06:28 APTT 34 SECONDS (21-34) 06/13/16 06:28 - Constitutional Appears: Other (intubated) - Head Exam Head Exam: NORMOCEPHALIC - Cardiovascular Exam Cardiovascular Exam: +S1, +S2 - GI/Abdominal Exam GI & Abdominal Exam: Soft, Hernia - Skin Skin Exam: Normal Color, Warm Assessment and Plan - Assessment and Plan (Free Text) Assessment: 80F w/ L pleural effusion s/p chest tube insertion POD#1 -F/u AM labs -F/u daily CXR -Monitor chest tube output -Daily dressing changes -Further recs per Dr. Jiménez
--- NOTE | 2016-06-14 09:36 | CP.PCM.PN ---
Subjective - Date & Time of Evaluation Date of Evaluation: 06/14/16 Time of Evaluation: 08:30 - Subjective Subjective: Patient seen and examined in the intensive care unit. Status post chest tube insertion and drainage total 350 mL Awake and responsive on low dose pressors Tolerating CPAP since morning with FiO2 of 30% Objective - Vital Signs/Intake and Output Vital Signs (last 24 hours): Temp Pulse Resp BP Pulse Ox 97.2 F L 82 13 114/64 100 06/13/16 22:00 06/14/16 08:00 06/14/16 08:00 06/14/16 07:50 06/14/16 08:00 Intake and Output: 06/14/16 06/14/16 06:59 18:59 Intake Total 2050.3 344.8 Output Total 385 10 Balance 1665.3 334.8 - Medications Medications: Current Medications Albuterol/Ipratropium (Duoneb 3 Mg/0.5 Mg (3 Ml) Ud) 3 ml INH RQ6 [facility] Last Admin: 06/14/16 07:41 Dose: 3 ml Heparin Sodium (Porcine) (Heparin) 5,000 units SC Q8 [facility] Last Admin: 06/12/16 22:55 Dose: 5,000 units Imipenem/Cilastatin Sodium 500 (mg/ Sodium Chloride) 100 mls @ 100 mls/hr IVPB Q8H [facility] Last Admin: 06/14/16 09:25 Dose: 100 mls/hr Levetiracetam 500 mg/ Sodium (Chloride) 105 mls @ 420 mls/hr IVPB Q12H [facility] Last Admin: 06/14/16 06:35 Dose: 420 mls/hr Dexmedetomidine HCl 200 mcg/ (Sodium Chloride) 50 mls @ 6.25 mls/hr IV TITR PRN ; Protocol; 0.2 MCG/KG/HR PRN Reason: Sedation Last Admin: 06/14/16 09:29 Dose: 0.39 mcg/kg/hr, 12.2 mls/hr Norepinephrine Bitartrate 4 mg (/ Dextrose) 254 mls @ 15.24 mls/hr IV .[id number] PRN; Protocol; 4 MCG/MIN PRN Reason: TITRATE PER MD ORDER Last Titration: 06/14/16 00:00 Dose: 4 mcg/min, 15.24 mls/hr Sodium Chloride (Sodium Chloride 0.9%) 1,000 mls @ 80 mls/hr IV .[id number] [facility] Last Admin: 06/13/16 21:04 Dose: 80 mls/hr Methylprednisolone (Solu-Medrol) 40 mg IVP Q12H [facility] Last Admin: 06/14/16 04:33 Dose: 40 mg Pantoprazole Sodium (Protonix Inj) 40 mg IVP DAILY [facility] Last Admin: 06/14/16 09:25 Dose: 40 mg - Labs Labs: 06/14/16 06:06 06/14/16 06:06 PT 14.4 SECONDS (9.7-12.2) H 06/13/16 06:28 INR 1.3 06/13/16 06:28 APTT 34 SECONDS (21-34) 06/13/16 06:28 - Head Exam Head Exam: ATRAUMATIC, NORMOCEPHALIC - ENT Exam ENT Exam: Mucous Membranes Moist - Respiratory Exam Respiratory Exam: Decreased Breath Sounds - Cardiovascular Exam Cardiovascular Exam: REGULAR RHYTHM - GI/Abdominal Exam GI & Abdominal Exam: Soft, Normal Bowel Sounds - Extremities Exam Extremities Exam: Pedal Edema Assessment and Plan (1) Acute respiratory failure Assessment & Plan: Continue antibiotics as per infectious disease and follow up pleural fluid culture and sensitivity Chest tube still draining fluid Tolerating CPAP since morning taper off pressors as tolerated Status: Acute (2) Pleural effusion Status: Acute (3) UTI (urinary tract infection) Status: Acute
--- NOTE | 2016-06-14 10:18 | RAD ---
HISTORY: s/p left chest tube COMPARISON: Chest x-ray performed 06/13/16 TECHNIQUE: Chest, one view. FINDINGS: Examination markedly limited due to habitus, hypoinflation, and patient obliquity. Endotracheal tube, nasogastric tube, right IJ approach central venous catheter, and left-sided chest tube re-identified without significant interval change appreciated. LUNGS: Small hwcu-[id number]-fnwy-right pleural effusions. Bibasilar atelectasis or infiltrates. No definite pneumothorax identified. Please note that chest x-ray has limited sensitivity for the detection of pulmonary masses. CARDIOVASCULAR: Cardiomegaly. OSSEOUS STRUCTURES: Degenerative changes. VISUALIZED UPPER ABDOMEN: Unremarkable. OTHER FINDINGS: None. IMPRESSION: No significant interval change.
--- NOTE | 2016-06-14 13:05 | CP.PCM.PN ---
Subjective - Date & Time of Evaluation Date of Evaluation: 06/14/16 Time of Evaluation: 13:05 - Subjective Subjective: afebrile on ventilator. Patient on pressors. AWAKE/RESPONSIVE S/P LT. CHEST TUBE -350ML FLUID OBTAINED 06/13/16 s/p RT IJ CATHETER PLACED 06/11/16 s/p thoracentesis 06/09 600cc serosanguinous fluid obtained. ROS. HEENT : N.head tilted to the left Resp : No cough, wheezing ,pleuritic CP ,or hemoptysis LT. CT IN PLACE. Cardio : TACHYCARDIC GI : No abd.pain, n/v ,diarrhea or GI bleeding . HAND PACKER : No headache, vertigo, focal deficit. Musculoskel : No joint swelling , Derm : No rash Psych : Normal affect. Ext : No swelling ,calf pain PE. Pt. is alert awake in no distress. V.S As noted in the chart Head ,ear nose,throat and eyes : Normal. Neck : Supple with normal carotids. Lungs: RHONCHI B/L +VE LT CHEST TUBE IN PLACE Heart : S1 & S2 normal with S4. No murmur.TACHYCARDIC Abd : Soft non tender with normal bowel sounds. Neuro : Moves all ext. with no localized deficit. Ext : + EDEMA with intact pulses.Non tender calves Derm : No rashes or decubitus ulcer. LABS/RADIOLOGY: urine culture repeat negative growth wbc 11.2, HEMOGLOBIN 10.2, PLATELETS 218. cREATININE IS 1.4/bun 36. SPUTUM CULTURE+VE ACINETOBACTER BOUMANNI S - tYGACIL bLOOD CULTURES 06/13/16 -VE . BLOOD CULTURES 06/06/16 NEGATIVE .. URINE CULTURE +VE PROTEUS MIRABILIS -MDR chest x-ray . ET ( NG) ,RT. IJ, +VE LT. CT, SMALL LEFT>RT PLEURAL EFFUSION WITH BIBASILAR ATELECTASIS/EFFUSIONS. ASSESSMENT/PLAN : IMPRESSION; -RESPIRATORY FAILURE/PNEUMONIA -S/P LEFT-SIDED THORACENTESIS/ chest tube 06/13 - SEPSIS- SYNDROME /HYPOTENSION - [id number]-RESISTANT PROTEUS MIRABILIS -CHF -DM. -HX MANISH- MASTOIDITIS/CHOLESTEATOMA. PLAN; DC IV VANCOMYCIN.06/13 ADD IV tYGACIL 100 MG LOADING DOSE FOLLOWED BY 50 EVERY 12 HOURLY.06/14 ON iv pRIMAXIN 500 MG EVERY 8 HOURLY . PLEURAL FLUID OF BRONCHIAL WASHINGS PENDING. mONITOR RENAL FUNCTIONS CLOSELY. pulmonary toilet. F/U PLEURAL FLUID/AND SPUTUM CULTURES AND BRONCHIAL WASHINGS. Objective - Vital Signs/Intake and Output Vital Signs (last 24 hours): Temp Pulse Resp BP Pulse Ox 97.1 F L 87 12 92/54 L 100 06/14/16 12:00 06/14/16 12:00 06/14/16 12:00 06/14/16 12:00 06/14/16 12:00 Intake and Output: 06/14/16 06/14/16 06:59 18:59 Intake Total 2050.3 964.9 Output Total 385 135 Balance 1665.3 829.9 - Medications Medications: Current Medications Albuterol/Ipratropium (Duoneb 3 Mg/0.5 Mg (3 Ml) Ud) 3 ml INH RQ6 [facility] Last Admin: 06/14/16 13:03 Dose: 3 ml Heparin Sodium (Porcine) (Heparin) 5,000 units SC Q8 [facility] Last Admin: 06/12/16 22:55 Dose: 5,000 units Imipenem/Cilastatin Sodium 500 (mg/ Sodium Chloride) 100 mls @ 100 mls/hr IVPB Q8H [facility] Last Admin: 06/14/16 09:25 Dose: 100 mls/hr Levetiracetam 500 mg/ Sodium (Chloride) 105 mls @ 420 mls/hr IVPB Q12H [facility] Last Admin: 06/14/16 06:35 Dose: 420 mls/hr Dexmedetomidine HCl 200 mcg/ (Sodium Chloride) 50 mls @ 6.25 mls/hr IV TITR PRN ; Protocol; 0.2 MCG/KG/HR PRN Reason: Sedation Last Titration: 06/14/16 11:00 Dose: 0.2 mcg/kg/hr, 6.3 mls/hr Norepinephrine Bitartrate 4 mg (/ Dextrose) 254 mls @ 15.24 mls/hr IV .[id number] PRN; Protocol; 4 MCG/MIN PRN Reason: TITRATE PER MD ORDER Last Titration: 06/14/16 10:00 Dose: 3 mcg/min, 11.43 mls/hr Sodium Chloride (Sodium Chloride 0.9%) 1,000 mls @ 80 mls/hr IV .[id number] [facility] Last Admin: 06/13/16 21:04 Dose: 80 mls/hr Methylprednisolone (Solu-Medrol) 40 mg IVP Q12H [facility] Last Admin: 06/14/16 04:33 Dose: 40 mg Pantoprazole Sodium (Protonix Inj) 40 mg IVP DAILY [facility] Last Admin: 06/14/16 09:25 Dose: 40 mg - Labs Labs: 06/14/16 06:06 06/14/16 06:06 PT 14.4 SECONDS (9.7-12.2) H 06/13/16 06:28 INR 1.3 06/13/16 06:28 APTT 34 SECONDS (21-34) 06/13/16 06:28 Assessment and Plan (1) UTI (urinary tract infection) Status: Acute (2) Dehydration Status: Acute (3) Acute respiratory failure Status: Acute (4) COPD (chronic obstructive pulmonary disease) Status: Acute (5) Hypotension Status: Acute (6) Acute onset sepsis Status: Acute
--- NOTE | 2016-06-14 13:33 | CP.CCUPN ---
CCU Subjective - Physician Review Events Since Last Encounter (Free Text): 06/14/16 13:32 Patient intubated on vent. Lightening sedation and starting pressure support trials CCU Objective - Vital Signs / Intake & Output Vital Signs (Last 4 hours): Vital Signs Temp Pulse Resp BP Pulse Ox 06/14/16 12:00 97.1 F L 87 12 92/54 L 100 06/14/16 11:00 90 13 99/63 L 100 06/14/16 10:00 80 12 120/69 99 Intake and Output (Last 8hrs): Intake & Output 06/13/16 06/14/16 06/14/16 22:59 06:59 14:59 Intake Total 1139.0 1437.5 964.9 Output Total 520 300 135 Balance 619.0 1137.5 829.9 Weight 284 lb 13.396 oz Intake: IV 194 70 50 Intake, IV Amount 770.0 1052.5 634.9 Right Distal Port 101.1 117.7 79.5 Internal Jugular Right Medial Port 600 840 500 Internal Jugular Right Proximal Port 68.9 94.8 55.4 Internal Jugular Tube Feeding 175 315 280 Output: Chest Tube Drainage 340 160 Left Lateral Chest 140 160 Urine 180 140 135 Urethral (Marrufo) 180 140 135 - Physical Exam Head: Positive for: Atraumatic, Normocephalic Pupils: Positive for: PERRL Extroacular Muscles: Positive for: EOMI Conjunctiva: Positive for: Normal Mouth: Positive for: Moist Mucous Membranes Respiratory/Chest: Positive for: Decreased Breath Sounds, Other (INTUBATED ) Cardiovascular: Positive for: Tachycardic Upper Extremity: Positive for: Normal Inspection, NORMAL PULSES. Negative for: Cyanosis, Edema Lower Extremity: Positive for: Normal Inspection, NORMAL PULSES. Negative for: Edema, CALF TENDERNESS Neurological: Positive for: GCS=15, CN II-XII Intact Skin: Positive for: Warm, Dry Psychiatric: Positive for: Alert, Oriented x 3 - Medications Active Medications: Active Medications Generic Name Dose Route Start Last Admin Trade Name Freq PRN Reason Stop Dose Admin Albuterol/Ipratropium 3 ml 06/11/16 10:45 06/14/16 13:03 Duoneb 3 Mg/0.5 Mg (3 Ml) Ud INH 3 ml RQ6 SHARIF Administration Heparin Sodium (Porcine) 5,000 units 06/12/16 14:00 06/12/16 22:55 Heparin SC 5,000 units Q8 SHARIF Administration Imipenem/Cilastatin Sodium 500 100 mls @ 100 mls/hr 06/06/16 18:00 06/14/16 09:25 mg/ Sodium Chloride IVPB 100 mls/hr Q8H SHARIF Administration Levetiracetam 500 mg/ Sodium 105 mls @ 420 mls/hr 06/07/16 18:30 06/14/16 06: 35 Chloride IVPB 420 mls/hr Q12H SHARIF Administration Dexmedetomidine HCl 200 mcg/ 50 mls @ 6.25 mls/hr 06/11/16 16:32 06/14/16 11: 00 Sodium Chloride IV 0.2 mcg/kg/hr TITR PRN 6.3 mls/hr Sedation Titration Protocol 0.2 MCG/KG/HR Norepinephrine Bitartrate 4 mg 254 mls @ 15.24 mls/hr 06/11/16 16:25 10:00 / Dextrose IV 3 mcg/min .[id number] PRN 11.43 mls/hr TITRATE PER MD ORDER Titration Protocol 4 MCG/MIN Sodium Chloride 1,000 mls @ 80 mls/hr 06/12/16 08:15 06/13/16 21:04 Sodium Chloride 0.9% IV 80 mls/hr .[id number] SHARIF Administration Tigecycline 100 mg/ Sodium 100 mls @ 100 mls/hr 06/14/16 14:00 Chloride IVPB 06/14/16 14:59 ONCE ONE Tigecycline 50 mg/ Sodium 100 mls @ 100 mls/hr 06/15/16 02:00 Chloride IVPB Q12H SHARIF Methylprednisolone 40 mg 06/13/16 17:30 06/14/16 04:33 Solu-Medrol IVP 40 mg Q12H SHARIF Administration Pantoprazole Sodium 40 mg 06/05/16 10:00 06/14/16 09:25 Protonix Inj IVP 40 mg DAILY SHARIF Administration - Patient Studies Lab Studies: Microbiology Studies 06/11/16 20:27 Gram Stain - Final Trachasp Sputum Culture - Preliminary Acinetobacter Baumannii 06/13/16 16:00 Gram Stain - Final Chest Wound Culture - Preliminary NO GROWTH AFTER 24 HOURS 06/13/16 14:20 Bronchial Culture - Preliminary Bronchial Washings Gram Negative Jones Lab Studies 06/14/16 06/14/16 06/14/16 Range/Units 06:06 06:06 04:20 WBC 11.2 H (4.8-10.8) K/uL RBC 3.91 (3.80-5.20) Mil/uL Hgb 10.2 L (11.0-16.0) g/dL Hct 34.0 (34.0-47.0) % MCV 86.9 (81.0-99.0) fL MCH 26.1 L (27.0-31.0) pg MCHC 30.1 L (33.0-37.0) g/dL RDW 22.1 H (11.5-14.5) % Plt Count 218 D (130-400) K/uL MPV 8.4 (7.2-11.7) fL Neut % (Auto) 88.3 H (50.0-75.0) % Lymph % (Auto) 3.7 L (20.0-40.0) % [place] % (Auto) 7.4 (0.0-10.0) % Eos % (Auto) 0.1 (0.0-4.0) % Baso % (Auto) 0.5 (0.0-2.0) % Neut # 9.9 H (1.8-7.0) K/uL Lymph # 0.4 L (1.0-4.3) K/uL [place] # 0.8 (0.0-0.8) K/uL Eos # 0.0 (0.0-0.7) K/uL Baso # 0.1 (0.0-0.2) K/uL Neutrophils % (Manual) 86 H (50-75) % Band Neutrophils % 3 H (0-2) % Lymphocytes % (Manual) 4 L (20-40) % Monocytes % (Manual) 7 (0-10) % Platelet Estimate Normal (NORMAL) Hypochromasia (manual) Slight Poikilocytosis (manual Slight Anisocytosis (manual) Moderate Microcytosis (manual) Slight Macrocytosis (manual) Slight Tear Drop Cells Slight Ovalocytes Slight [place] Cells Slight Schistocytes Slight Puncture Site Rr pCO2 36 (35-45) mm/Hg pO2 89 (80-100) mm/Hg HCO3 23.3 (21-28) mmol/L ABG pH 7.40 (7.35-7.45) ABG Total CO2 23.4 (22-28) mmol/L ABG O2 Saturation 98.7 H (95-98) % ABG Base Excess -2.1 L (-2.0-3.0) mmol/L ABG Hemoglobin 10.7 L (11.7-17.4) g/dL ABG Carboxyhemoglobin 1.7 H (0.5-1.5) % POC ABG HHb (Measured) 1.3 (0.0-5.0) % ABG Methemoglobin 1.0 (0.0-3.0) % Oscar Test Pos A-a O2 Difference 80.0 mm/Hg Respiratory Index 0.9 Hgb O2 Saturation 96.0 (95.0-98.0) % Mechanical Rate 14 FiO2 30.0 % Tidal Volume 500 PEEP 5 Sodium 142 (132-148) mmol/L Potassium 4.7 (3.6-5.2) mmol/L Chloride 111 H (98-107) mmol/L Carbon Dioxide 20 L (22-30) mmol/L Anion Gap 16 (10-20) BUN 36 H (7-17) mg/dL Creatinine 1.4 H (0.7-1.2) MG/DL Est GFR ( Amer) 44 Est GFR (Non-Af Amer) 36 Random Glucose 147 H (65-105) mg/dL Calcium 6.3 L (8.6-10.4) mg/dl Phosphorus 4.5 (2.5-4.5) mg/dL Magnesium 1.8 (1.6-2.3) mg/dL Total Bilirubin 0.9 (0.2-1.3) mg/dL AST 22 (14-36) U/L ALT 15 (9-52) U/L Alkaline Phosphatase 138 H (38-126) U/L Lactate Dehydrogenase (313-618) U/L Total Protein 5.1 L (6.3-8.3) g/dL Albumin 2.0 L (3.5-5.0) g/dL Globulin 3.2 (2.2-3.9) gm/dL Albumin/Globulin Ratio 0.6 L (1.0-2.1) Amylase (30-110) U/L Blood Type Antibody Screen 06/13/16 06/13/16 06/13/16 Range/Units 16:20 16:20 16:20 WBC 17.0 H D (4.8-10.8) K/uL RBC 4.24 (3.80-5.20) Mil/uL Hgb 11.2 (11.0-16.0) g/dL Hct 36.8 (34.0-47.0) % MCV 86.8 (81.0-99.0) fL MCH 26.4 L (27.0-31.0) pg MCHC 30.4 L (33.0-37.0) g/dL RDW 21.9 H (11.5-14.5) % Plt Count 331 (130-400) K/uL MPV 8.0 (7.2-11.7) fL Neut % (Auto) 90.5 H (50.0-75.0) % Lymph % (Auto) 1.9 L (20.0-40.0) % [place] % (Auto) 7.0 (0.0-10.0) % Eos % (Auto) 0.0 (0.0-4.0) % Baso % (Auto) 0.6 (0.0-2.0) % Neut # 15.4 H (1.8-7.0) K/uL Lymph # 0.3 L (1.0-4.3) K/uL [place] # 1.2 H (0.0-0.8) K/uL Eos # 0.0 (0.0-0.7) K/uL Baso # 0.1 (0.0-0.2) K/uL Neutrophils % (Manual) 85 H (50-75) % Band Neutrophils % 5 H (0-2) % Lymphocytes % (Manual) 2 L (20-40) % Monocytes % (Manual) 8 (0-10) % Platelet Estimate Normal (NORMAL) Hypochromasia (manual) Slight Poikilocytosis (manual Slight Anisocytosis (manual) Slight Microcytosis (manual) Macrocytosis (manual) Tear Drop Cells Ovalocytes Jesus Cells Schistocytes Puncture Site pCO2 (35-45) mm/Hg pO2 (80-100) mm/Hg HCO3 (21-28) mmol/L ABG pH (7.35-7.45) ABG Total CO2 (22-28) mmol/L ABG O2 Saturation (95-98) % ABG Base Excess (-2.0-3.0) mmol/L ABG Hemoglobin (11.7-17.4) g/dL ABG Carboxyhemoglobin (0.5-1.5) % POC ABG HHb (Measured) (0.0-5.0) % ABG Methemoglobin (0.0-3.0) % Oscar Test A-a O2 Difference mm/Hg Respiratory Index Hgb O2 Saturation (95.0-98.0) % Mechanical Rate FiO2 % Tidal Volume PEEP Sodium 141 (132-148) mmol/L Potassium 4.8 (3.6-5.2) mmol/L Chloride 111 H (98-107) mmol/L Carbon Dioxide 19 L (22-30) mmol/L Anion Gap 16 (10-20) BUN 33 H (7-17) mg/dL Creatinine 1.5 H (0.7-1.2) MG/DL Est GFR ( Amer) 41 Est GFR (Non-Af Amer) 33 Random Glucose 118 H (65-105) mg/dL Calcium 6.6 L (8.6-10.4) mg/dl Phosphorus (2.5-4.5) mg/dL Magnesium (1.6-2.3) mg/dL Total Bilirubin (0.2-1.3) mg/dL AST (14-36) U/L ALT (9-52) U/L Alkaline Phosphatase (38-126) U/L Lactate Dehydrogenase 651 H (313-618) U/L Total Protein (6.3-8.3) g/dL Albumin (3.5-5.0) g/dL Globulin (2.2-3.9) gm/dL Albumin/Globulin Ratio (1.0-2.1) Amylase < 30 L (30-110) U/L Blood Type O NEGATIVE Antibody Screen Negative Laboratory Results - last 24 hr 06/13/16 06/13/16 06/13/16 16:20 16:20 16:20 WBC 17.0 H D RBC 4.24 Hgb 11.2 Hct 36.8 MCV 86.8 MCH 26.4 L MCHC 30.4 L RDW 21.9 H Plt Count 331 MPV 8.0 Neut % (Auto) 90.5 H Lymph % (Auto) 1.9 L [place] % (Auto) 7.0 Eos % (Auto) 0.0 Baso % (Auto) 0.6 Neut # 15.4 H Lymph # 0.3 L [place] # 1.2 H Eos # 0.0 Baso # 0.1 Neutrophils % (Manual) 85 H Band Neutrophils % 5 H Lymphocytes % (Manual) 2 L Monocytes % (Manual) 8 Platelet Estimate Normal Hypochromasia (manual) Slight Poikilocytosis (manual Slight Anisocytosis (manual) Slight Microcytosis (manual) Macrocytosis (manual) Tear Drop Cells Ovalocytes Jesus Cells Schistocytes Puncture Site pCO2 pO2 HCO3 ABG pH ABG Total CO2 ABG O2 Saturation ABG Base Excess ABG Hemoglobin ABG Carboxyhemoglobin POC ABG HHb (Measured) ABG Methemoglobin Oscar Test A-a O2 Difference Respiratory Index Hgb O2 Saturation Mechanical Rate FiO2 Tidal Volume PEEP Sodium 141 Potassium 4.8 Chloride 111 H Carbon Dioxide 19 L Anion Gap 16 BUN 33 H Creatinine 1.5 H Est GFR ( Amer) 41 Est GFR (Non-Af Amer) 33 Random Glucose 118 H Calcium 6.6 L Phosphorus Magnesium Total Bilirubin AST ALT Alkaline Phosphatase Lactate Dehydrogenase 651 H Total Protein Albumin Globulin Albumin/Globulin Ratio Amylase < 30 L Blood Type O NEGATIVE Antibody Screen Negative 06/14/16 06/14/16 06/14/16 04:20 06:06 06:06 WBC 11.2 H RBC 3.91 Hgb 10.2 L Hct 34.0 MCV 86.9 MCH 26.1 L MCHC 30.1 L RDW 22.1 H Plt Count 218 D MPV 8.4 Neut % (Auto) 88.3 H Lymph % (Auto) 3.7 L [place] % (Auto) 7.4 Eos % (Auto) 0.1 Baso % (Auto) 0.5 Neut # 9.9 H Lymph # 0.4 L [place] # 0.8 Eos # 0.0 Baso # 0.1 Neutrophils % (Manual) 86 H Band Neutrophils % 3 H Lymphocytes % (Manual) 4 L Monocytes % (Manual) 7 Platelet Estimate Normal Hypochromasia (manual) Slight Poikilocytosis (manual Slight Anisocytosis (manual) Moderate Microcytosis (manual) Slight Macrocytosis (manual) Slight Tear Drop Cells Slight Ovalocytes Slight [place] Cells Slight Schistocytes Slight Puncture Site Rr pCO2 36 pO2 89 HCO3 23.3 ABG pH 7.40 ABG Total CO2 23.4 ABG O2 Saturation 98.7 H ABG Base Excess -2.1 L ABG Hemoglobin 10.7 L ABG Carboxyhemoglobin 1.7 H POC ABG HHb (Measured) 1.3 ABG Methemoglobin 1.0 Oscar Test Pos A-a O2 Difference 80.0 Respiratory Index 0.9 Hgb O2 Saturation 96.0 Mechanical Rate 14 FiO2 30.0 Tidal Volume 500 PEEP 5 Sodium 142 Potassium 4.7 Chloride 111 H Carbon Dioxide 20 L Anion Gap 16 BUN 36 H Creatinine 1.4 H Est GFR ( Amer) 44 Est GFR (Non-Af Amer) 36 Random Glucose 147 H Calcium 6.3 L Phosphorus 4.5 Magnesium 1.8 Total Bilirubin 0.9 AST 22 ALT 15 Alkaline Phosphatase 138 H Lactate Dehydrogenase Total Protein 5.1 L Albumin 2.0 L Globulin 3.2 Albumin/Globulin Ratio 0.6 L Amylase Blood Type Antibody Screen Review of Systems - Review of Systems Systems not reviewed;Unavailable: Intubated Critical Care Progress Note - Ventilator Checklist Head of Bed 30 Degrees: Yes Daily Sedation Vacation: Yes Daily Assessment of Readiness to Wean: Yes Daily Spontaneous Breathing Trial: Yes PUD Prophalyxis: Yes DVT Prophylaxis: Yes Assessment/Plan (1) UTI (urinary tract infection) Assessment and plan: 80 year old female with PMHx of CHF, COPD, HTN, Respiratory failure, recurrent UTIs. presented with dehydration, hypernatremia, acute on chronic respiratory failure, and a UTI. IR thoracentesis (06/09.) Intubated (06/10). Open thoracotomy, right chest tube placement (06/13). Neuro: Alert, following some commands. Precedex drip, titrating down. Pulm: Acute respiratory failure on vent. Right chest tube in place, drained 160 mL's overnight. COPD, Solu-Medrol 40 mg IV every 12. Starting pressure support trials. CV: Septic shock on pressors, Levophed drip, titrating down. Hem: No acute issues Renal: Oliguria, NS@80 Endo: No acute issues GI: Isosource at 45 ID: Septic shock secondary to UTI. Proteus in urine, Acinetobacter in the sputum. Continue Primaxin, may have to start tigecycline, consulting ID. DVT proph - heparin subcutaneous GI proph - Protonix marrufo for strict I/O's during acute illness Code status - DNR Crtical Care Time spent 35 minutes Multi-disciplinary rounds were performed with house staff, nursing, speech therapy, respiratory therapy, pharmacy and nutrition with integrated input from the primary team/attending and other consulting services. The documented time is cumulative and includes review of patient data/exams/labs/chart review and examination of the patient on rounds and throughout the day; time is exclusive of any procedures or teaching time. Current Visit: Yes Status: Acute Comment: Broad spectrum antibiotic Fine cultures
[2016-06-14] MEDS: Sodium Chloride 0.9% 1,000 ML IV SCH (13:56)
--- NOTE | 2016-06-14 14:22 | OP ---
PROCEDURE DATE: 06/13/2016 PREOPERATIVE DIAGNOSES: 1. Left pleural effusion. 2. Atelectasis. 3. Respiratory failure. POSTOPERATIVE DIAGNOSES: 1. Left pleural effusion. 2. Atelectasis. 3. Respiratory failure. OPERATION PERFORMED: 1. Mini left lateral thoracotomy, exploration of the pleural cavity. 2. Lysis of adhesions. 3. Insertion of a chest tube. ANESTHESIA: Endotracheal anesthesia with IV sedation and local. OPERATIVE FINDINGS: Approximately 250 mL of serous effusion was evacuated. Heart was abutting the left lateral chest wall. OPERATIVE PROCEDURE: The patient was taken to operating room where under satisfactory IV sedation, operative field was prepared and draped in a sterile fashion while the patient was still in supine position in her bed. Surgery was started out by making approximately a 10 cm long left lateral thoracotomy incision and bleeding points were electrocauterized. Dissection was deepened to the lateral fifth intercostal space and with digital dissections, the pleural cavity was entered. It was readily apparent that the heart was abutting the chest wall. After careful exploration and lysis of adhesions, a 28-Arabic chest tube was inserted through a stab wound in the lower skin flap of the incision, and was advanced into the chest cavity via rib opening. Extreme care was exercised not to injure any vital organs. After satisfactory placement of the chest tube, the chest tube was secured at the skin opening with 0 silk sutures. Chest opening was closed with 3 layers of 0 Vicryl sutures and then skin was approximated with skin suzanne. Sterile dressings were applied and taped in the usual manner. The patient tolerated the procedure very well and transferred to the ICU in satisfactory condition. 200 cc of serous effusion was remove, and sent out for appropriate studies. ESTIMATED BLOOD LOSS: 15cc. Sponge, needle and instrument counts were correct. Jose Jiménez MD cc: 166 TT: 06/14/2016 14:21:42 yany WOODRUFF
[2016-06-14] MEDS: Albumin Human 5% (12.5 gm/250 ml) IV SCH (15:55)
[2016-06-15] MEDS: Dexmedetomidine Hydrochloride 200 MCG in Sodium Chloride 0.9% 48 ML IV PRN ×3 (00:23→22:39)
[2016-06-15] MEDS: Albumin Human 5% (12.5 gm/250 ml) IV SCH (00:24)
[2016-06-15] MEDS: Sodium Chloride 0.9% 1,000 ML IV SCH (00:27)
[2016-06-15] MEDS: Albuterol-Ipratrop 3 mg / 0.5 (3 ml) UD INH SCH ×4 (01:14→19:10)
--- NOTE | 2016-06-15 01:23 | CP.PCM.PN ---
Subjective - Date & Time of Evaluation Date of Evaluation: 06/14/16 Time of Evaluation: 10:02 - Subjective Subjective: pt seeen and examined, is improving, for possible extubation today Objective - Vital Signs/Intake and Output Vital Signs (last 24 hours): Temp Pulse Resp BP Pulse Ox 98.5 F 106 H 16 93/63 L 100 06/15/16 00:00 06/15/16 01:00 06/15/16 01:00 06/15/16 01:00 06/15/16 01:00 Intake and Output: 06/14/16 06/15/16 18:59 06:59 Intake Total 2212.7 1144.3 Output Total 525 95 Balance 1687.7 1049.3 - Medications Medications: Current Medications Albuterol/Ipratropium (Duoneb 3 Mg/0.5 Mg (3 Ml) Ud) 3 ml INH RQ6 SHARIF Last Admin: 06/15/16 01:14 Dose: 3 ml Heparin Sodium (Porcine) (Heparin) 5,000 units SC Q8 SHARIF Last Admin: 06/12/16 22:55 Dose: 5,000 units Imipenem/Cilastatin Sodium 500 (mg/ Sodium Chloride) 100 mls @ 100 mls/hr IVPB Q8H SHARIF Last Admin: 06/14/16 17:26 Dose: 100 mls/hr Levetiracetam 500 mg/ Sodium (Chloride) 105 mls @ 420 mls/hr IVPB Q12H [facility] Last Admin: 06/14/16 18:31 Dose: 420 mls/hr Dexmedetomidine HCl 200 mcg/ (Sodium Chloride) 50 mls @ 6.25 mls/hr IV TITR PRN ; Protocol; 0.2 MCG/KG/HR PRN Reason: Sedation Last Admin: 06/15/16 00:23 Dose: 0.2 mcg/kg/hr, 6.25 mls/hr Norepinephrine Bitartrate 4 mg (/ Dextrose) 254 mls @ 15.24 mls/hr IV .[id number] PRN; Protocol; 4 MCG/MIN PRN Reason: TITRATE PER MD ORDER Last Titration: 06/14/16 19:00 Dose: 2 mcg/min, 7.62 mls/hr Sodium Chloride (Sodium Chloride 0.9%) 1,000 mls @ 80 mls/hr IV .[id number] SHARIF Last Admin: 06/15/16 00:27 Dose: 80 mls/hr Tigecycline 50 mg/ Sodium (Chloride) 100 mls @ 100 mls/hr IVPB Q12H [facility] Methylprednisolone (Solu-Medrol) 40 mg IVP Q12H [facility] Last Admin: 06/14/16 17:28 Dose: 40 mg Pantoprazole Sodium (Protonix Inj) 40 mg IVP DAILY [facility] Last Admin: 06/14/16 09:25 Dose: 40 mg - Labs Labs: 06/14/16 06:06 06/14/16 06:06 PT 14.4 SECONDS (9.7-12.2) H 06/13/16 06:28 INR 1.3 06/13/16 06:28 APTT 34 SECONDS (21-34) 06/13/16 06:28 - Constitutional Appears: No Acute Distress, Chronically Ill - Head Exam Head Exam: ATRAUMATIC, NORMAL INSPECTION, NORMOCEPHALIC - ENT Exam ENT Exam: Mucous Membranes Moist, Normal Exam - Respiratory Exam Respiratory Exam: Decreased Breath Sounds, Rales, Rhonchi - Cardiovascular Exam Cardiovascular Exam: REGULAR RHYTHM, +S1, +S2. absent: Murmur - GI/Abdominal Exam GI & Abdominal Exam: Soft, Normal Bowel Sounds. absent: Tenderness - Rectal Exam Rectal Exam: Deferred Assessment and Plan (1) UTI (urinary tract infection) Status: Acute (2) Dehydration Status: Acute (3) Hypotension Status: Acute (4) Acute onset sepsis Status: Acute (5) Respiratory failure Status: Acute (6) Hypertension Status: Acute
[2016-06-15] MEDS: MethylPREDNISolone 40 mg Vial IVP SCH ×2 (05:10→17:52)
[2016-06-15 05:55] LABS: ABG ALLEN TEST POS; ABG MECHANICAL RATE 14; ARTERIAL BLOOD HGB O2 SAT 95.5 % (95.0-98.0); ATERIAL BLOOD GAS PEEP 5; CARBOXYHEMOGLOBIN 1.7 % (0.5-1.5); DRAW SITE RR; HHB 1.2 % (0.0-5.0); METHEMOGLOBIN 1.6 % (0.0-3.0)
[2016-06-15] MEDS: levETIRAcetam 500 MG in Sodium Chloride 0.9% 100 ML IVPB SCH ×2 (06:15→17:52)
[2016-06-15 07:06] LABS: BASO % 0.2 % (0.0-2.0); HEMATOCRIT 31.8 % (34.0-47.0); LYMPH # 0.5 K/uL (1.0-4.3); LYMPH % 4.8 % (20.0-40.0); MEAN CELL VOLUME 86.7 fL (81.0-99.0); MEAN CORPUSCULAR HEMOGLOBIN 27.3 pg (27.0-31.0); MEAN CORPUSCULAR HGB CONC 31.5 g/dL (33.0-37.0); MEAN PLATELET VOLUME 8.3 fL (7.2-11.7); MONO # 0.8 K/uL (0.0-0.8); MONO % 7.4 % (0.0-10.0); NRBC % 0.1 % (0.0-2.0); PLATELET COUNT 182 K/uL (130-400); WHITE BLOOD COUNT 10.9 K/uL (4.8-10.8)
[2016-06-15 07:09] LABS: POTASSIUM 4.4 mmol/L (3.6-5.2)
[2016-06-15 07:11] LABS: ALB/GLOB RATIO 0.8 (1.0-2.1); BILIRUBIN,TOTAL 0.8 mg/dL (0.2-1.3); CALCIUM 6.1 mg/dl (8.6-10.4); TOTAL PROTEIN 5.2 g/dL (6.3-8.3)
[2016-06-15 08:47] LABS: TOTAL CELLS COUNTED 100
[2016-06-15 08:48] LABS: LARGE PLATELETS PRESENT; NEUTROPHIL 85 % (50-75)
[2016-06-15] MEDS ORDERED: MethylPREDNISolone 40 mg Vial IVP SCH (09:26)
--- NOTE | 2016-06-15 10:00 | CP.PCM.PN ---
Subjective - Date & Time of Evaluation Date of Evaluation: 06/15/16 Time of Evaluation: 09:57 - Subjective Subjective: Thoracic Surgery - Dr. Jiménez Pt S&E. PASTOR. Pt intubated, alert and responsive, vent on 30% Fio2, [address] to wall suction, 450cc serosanguinous drainage/24hrs, dressing C/D/I. Objective - Vital Signs/Intake and Output Vital Signs (last 24 hours): Temp Pulse Resp BP Pulse Ox 98.1 F 75 14 100/59 L 99 06/15/16 04:00 06/15/16 08:38 06/15/16 08:38 06/15/16 09:37 06/15/16 05:00 Intake and Output: 06/15/16 06/15/16 06:59 18:59 Intake Total 1964.5 304 Output Total 140 Balance 1824.5 304 - Medications Medications: Current Medications Albuterol/Ipratropium (Duoneb 3 Mg/0.5 Mg (3 Ml) Ud) 3 ml INH RQ6 SHARIF Last Admin: 06/15/16 07:34 Dose: 3 ml Furosemide (Lasix) 40 mg IVP Q12H SHARIF Stop: 06/16/16 21:31 Last Admin: 06/15/16 09:37 Dose: 40 mg Heparin Sodium (Porcine) (Heparin) 5,000 units SC Q8 SHARIF Last Admin: 06/15/16 05:18 Dose: 5,000 units Imipenem/Cilastatin Sodium 500 (mg/ Sodium Chloride) 100 mls @ 100 mls/hr IVPB Q8H SHARIF Last Admin: 06/15/16 02:17 Dose: 100 mls/hr Levetiracetam 500 mg/ Sodium (Chloride) 105 mls @ 420 mls/hr IVPB Q12H SHARIF Last Admin: 06/15/16 06:15 Dose: 420 mls/hr Norepinephrine Bitartrate 4 mg (/ Dextrose) 254 mls @ 15.24 mls/hr IV .[id number] PRN; Protocol; 4 MCG/MIN PRN Reason: TITRATE PER MD ORDER Last Admin: 06/15/16 08:38 Dose: 3.93 mcg/min, 14.97 mls/hr Tigecycline 50 mg/ Sodium (Chloride) 100 mls @ 100 mls/hr IVPB Q12H SHARIF Last Admin: 06/15/16 02:18 Dose: 100 mls/hr Methylprednisolone (Solu-Medrol) 20 mg IVP 0600,1800 [facility] Pantoprazole Sodium (Protonix Inj) 40 mg IVP DAILY [facility] Last Admin: 06/15/16 09:37 Dose: 40 mg - Labs Labs: 06/15/16 06:53 06/15/16 06:53 PT 14.4 SECONDS (9.7-12.2) H 06/13/16 06:28 INR 1.3 06/13/16 06:28 APTT 34 SECONDS (21-34) 06/13/16 06:28 - Constitutional Appears: No Acute Distress - Head Exam Head Exam: ATRAUMATIC, NORMAL INSPECTION, NORMOCEPHALIC - Eye Exam Eye Exam: Normal appearance - Respiratory Exam Respiratory Exam: NORMAL BREATHING PATTERN. absent: Respiratory Distress Additional comments: intubated, on vent L CT to wall suction, 450cc serosanguinuous drainage - Neurological Exam Neurological Exam: Alert, Awake - Psychiatric Exam Psychiatric exam: Normal Affect, Normal Mood - Skin Skin Exam: Dry, Intact Assessment and Plan - Assessment and Plan (Free Text) Assessment: 80F w/ L pleural effusion s/p chest tube insertion POD#2 -CXR stable -L CT w/ 450cc/24hrs -Daily dressing change -Wean off vent -DW Dr. Tino Villeda PGY2
--- NOTE | 2016-06-15 11:59 | RAD ---
Chest, one view Indication: Intubated/chest tube Comparison: Multiple prior chest x-rays, the most recent performed 06/14/16 Findings: Examination markedly limited due to habitus, hypoinflation, and marked patient obliquity. Right-sided IJ approach central venous catheter, left-sided chest tube, endotracheal tube, and nasogastric tube re-identified ; obliquity precludes adequate evaluation of positioning. Partially obscured cardiomegaly. Moderate bilateral pleural effusions and associated consolidations. Pulmonary venous congestion. No definite pneumothorax. Please note that chest x-ray has limited sensitivity for the detection of pulmonary masses. Degenerative changes of the osseous structures. Impression: No appreciable interval change. Examination markedly limited due to habitus, hypoinflation, and marked patient obliquity. Right-sided IJ approach central venous catheter, left-sided chest tube, endotracheal tube, and nasogastric tube re-identified ; obliquity precludes adequate evaluation of positioning. Partially obscured cardiomegaly. Moderate bilateral pleural effusions and associated consolidations. Pulmonary venous congestion.
--- NOTE | 2016-06-15 13:14 | CP.CCUPN ---
CCU Subjective - Physician Review Events Since Last Encounter (Free Text): 06/15/16 13:11 intubated, continuing PS trials. CCU Objective - Vital Signs / Intake & Output Vital Signs (Last 4 hours): Vital Signs Temp Pulse Resp BP Pulse Ox 06/15/16 12:51 98 H 17 109/49 L 100 06/15/16 12:00 97.9 F 96 H 17 99 06/15/16 11:53 97 H 19 99/48 L 100 06/15/16 11:51 96 H 17 87/42 L 100 06/15/16 11:14 82 12 90/42 L 100 06/15/16 11:00 84 14 100 06/15/16 10:51 89 14 80/30 L 100 06/15/16 10:00 84 14 100 06/15/16 09:50 91 H 14 104/56 L 100 06/15/16 09:37 100/59 L Intake and Output (Last 8hrs): Intake & Output 06/14/16 06/15/16 06/15/16 22:59 06:59 14:59 Intake Total 1518.1 1271.6 904.3 Output Total 395 80 450 Balance 1123.1 1191.6 454.3 Weight 287 lb 1 oz Intake: IV 154 200 304 Intake, IV Amount 1084.1 791.6 360.3 Blue Port 18.9 44.1 10.3 Right Distal Port 75.2 67.5 90 Internal Jugular Right Medial Port 740 680 160 Internal Jugular Right Proximal Port 250 100 Internal Jugular Tube Feeding 280 280 240 Output: Chest Tube Drainage 250 50 Left Lateral Chest 250 50 Urine 145 80 400 Urethral (Marrufo) 145 80 400 Other: # Bowel Movements 1 0 - Physical Exam Head: Positive for: Atraumatic, Normocephalic Pupils: Positive for: PERRL Extroacular Muscles: Positive for: EOMI Conjunctiva: Positive for: Normal Mouth: Positive for: Moist Mucous Membranes Respiratory/Chest: Positive for: Decreased Breath Sounds, Other (INTUBATED ) Cardiovascular: Positive for: Tachycardic Upper Extremity: Positive for: Normal Inspection, NORMAL PULSES. Negative for: Cyanosis, Edema Lower Extremity: Positive for: Normal Inspection, NORMAL PULSES. Negative for: Edema, CALF TENDERNESS Neurological: Positive for: GCS=15, CN II-XII Intact Skin: Positive for: Warm, Dry Psychiatric: Positive for: Alert, Oriented x 3 - Medications Active Medications: Active Medications Generic Name Dose Route Start Last Admin Trade Name Freq PRN Reason Stop Dose Admin Albuterol/Ipratropium 3 ml 06/11/16 10:45 06/15/16 13:05 Duoneb 3 Mg/0.5 Mg (3 Ml) Ud INH 3 ml RQ6 SHARIF Administration Furosemide 40 mg 06/15/16 09:30 06/15/16 09:37 Lasix IVP 06/16/16 21:31 40 mg Q12H SHARIF Administration Heparin Sodium (Porcine) 5,000 units 06/12/16 14:00 06/15/16 05:18 Heparin SC 5,000 units Q8 SHARIF Administration Imipenem/Cilastatin Sodium 500 100 mls @ 100 mls/hr 06/06/16 18:00 06/15/16 10:40 mg/ Sodium Chloride IVPB 100 mls/hr Q8H SHARIF Administration Levetiracetam 500 mg/ Sodium 105 mls @ 420 mls/hr 06/07/16 18:30 06/15/16 06: 15 Chloride IVPB 420 mls/hr Q12H SHARIF Administration Norepinephrine Bitartrate 4 mg 254 mls @ 15.24 mls/hr 06/11/16 16:25 08:38 / Dextrose IV 3.93 mcg/min .[id number] PRN 14.97 mls/hr TITRATE PER MD ORDER Administration Protocol 4 MCG/MIN Tigecycline 50 mg/ Sodium 100 mls @ 100 mls/hr 06/15/16 02:00 06/15/16 02:18 Chloride IVPB 100 mls/hr Q12H SHARIF Administration Methylprednisolone 20 mg 06/15/16 18:00 Solu-Medrol IVP 0600,1800 SHARIF Pantoprazole Sodium 40 mg 06/05/16 10:00 06/15/16 09:37 Protonix Inj IVP 40 mg DAILY SHARIF Administration - Patient Studies Lab Studies: Microbiology Studies 06/13/16 14:20 Bronchial Culture - Final Bronchial Washings Acinetobacter Baumannii 06/11/16 20:27 Gram Stain - Final Trachasp Sputum Culture - Final Acinetobacter Baumannii 06/13/16 16:00 Gram Stain - Final Chest Wound Culture - Preliminary NO GROWTH AFTER 24 HOURS Lab Studies 06/15/16 06/15/16 06/15/16 Range/Units 06:53 06:53 05:51 WBC 10.9 H (4.8-10.8) K/uL RBC 3.66 L (3.80-5.20) Mil/uL Hgb 10.0 L (11.0-16.0) g/dL Hct 31.8 L (34.0-47.0) % MCV 86.7 (81.0-99.0) fL MCH 27.3 (27.0-31.0) pg MCHC 31.5 L (33.0-37.0) g/dL RDW 22.0 H (11.5-14.5) % Plt Count 182 (130-400) K/uL MPV 8.3 (7.2-11.7) fL Neut % (Auto) 87.6 H (50.0-75.0) % Lymph % (Auto) 4.8 L (20.0-40.0) % Meagher % (Auto) 7.4 (0.0-10.0) % Eos % (Auto) 0.0 (0.0-4.0) % Baso % (Auto) 0.2 (0.0-2.0) % Neut # 9.5 H (1.8-7.0) K/uL Lymph # 0.5 L (1.0-4.3) K/uL Meagher # 0.8 (0.0-0.8) K/uL Eos # 0.0 (0.0-0.7) K/uL Baso # 0.0 (0.0-0.2) K/uL Neutrophils % (Manual) 85 H (50-75) % Band Neutrophils % 3 H (0-2) % Lymphocytes % (Manual) 5 L (20-40) % Monocytes % (Manual) 7 (0-10) % Platelet Estimate Normal (NORMAL) Large Platelets Present Hypochromasia (manual) Slight Poikilocytosis (manual Slight Anisocytosis (manual) Slight Microcytosis (manual) Slight Macrocytosis (manual) Slight Tear Drop Cells Slight Ovalocytes Slight Schistocytes Slight Puncture Site Rr pCO2 35 (35-45) mm/Hg pO2 89 (80-100) mm/Hg HCO3 21.9 (21-28) mmol/L ABG pH 7.38 (7.35-7.45) ABG Total CO2 21.8 L (22-28) mmol/L ABG O2 Saturation 98.8 H (95-98) % ABG Base Excess -3.9 L (-2.0-3.0) mmol/L ABG Hemoglobin 9.7 L (11.7-17.4) g/dL ABG Carboxyhemoglobin 1.7 H (0.5-1.5) % POC ABG HHb (Measured) 1.2 (0.0-5.0) % ABG Methemoglobin 1.6 (0.0-3.0) % Oscar Test Pos A-a O2 Difference 81.0 mm/Hg Respiratory Index 0.9 Hgb O2 Saturation 95.5 (95.0-98.0) % Mechanical Rate 14 FiO2 30.0 % Tidal Volume 500 PEEP 5 Sodium 144 (132-148) mmol/L Potassium 4.4 (3.6-5.2) mmol/L Chloride 112 H (98-107) mmol/L Carbon Dioxide 21 L (22-30) mmol/L Anion Gap 15 (10-20) BUN 40 H (7-17) mg/dL Creatinine 1.4 H (0.7-1.2) MG/DL Est GFR ( Amer) 44 Est GFR (Non-Af Amer) 36 Random Glucose 142 H (65-105) mg/dL Calcium 6.1 L (8.6-10.4) mg/dl Total Bilirubin 0.8 (0.2-1.3) mg/dL AST 20 (14-36) U/L ALT 15 (9-52) U/L Alkaline Phosphatase 144 H (38-126) U/L Total Protein 5.2 L (6.3-8.3) g/dL Albumin 2.3 L (3.5-5.0) g/dL Globulin 3.0 (2.2-3.9) gm/dL Albumin/Globulin Ratio 0.8 L (1.0-2.1) Random Vancomycin ug/mL 06/14/16 Range/Units 19:56 WBC (4.8-10.8) K/uL RBC (3.80-5.20) Mil/uL Hgb (11.0-16.0) g/dL Hct (34.0-47.0) % MCV (81.0-99.0) fL MCH (27.0-31.0) pg MCHC (33.0-37.0) g/dL RDW (11.5-14.5) % Plt Count (130-400) K/uL MPV (7.2-11.7) fL Neut % (Auto) (50.0-75.0) % Lymph % (Auto) (20.0-40.0) % Meagher % (Auto) (0.0-10.0) % Eos % (Auto) (0.0-4.0) % Baso % (Auto) (0.0-2.0) % Neut # (1.8-7.0) K/uL Lymph # (1.0-4.3) K/uL Meagher # (0.0-0.8) K/uL Eos # (0.0-0.7) K/uL Baso # (0.0-0.2) K/uL Neutrophils % (Manual) (50-75) % Band Neutrophils % (0-2) % Lymphocytes % (Manual) (20-40) % Monocytes % (Manual) (0-10) % Platelet Estimate (NORMAL) Large Platelets Hypochromasia (manual) Poikilocytosis (manual Anisocytosis (manual) Microcytosis (manual) Macrocytosis (manual) Tear Drop Cells Ovalocytes Schistocytes Puncture Site pCO2 (35-45) mm/Hg pO2 (80-100) mm/Hg HCO3 (21-28) mmol/L ABG pH (7.35-7.45) ABG Total CO2 (22-28) mmol/L ABG O2 Saturation (95-98) % ABG Base Excess (-2.0-3.0) mmol/L ABG Hemoglobin (11.7-17.4) g/dL ABG Carboxyhemoglobin (0.5-1.5) % POC ABG HHb (Measured) (0.0-5.0) % ABG Methemoglobin (0.0-3.0) % Oscar Test A-a O2 Difference mm/Hg Respiratory Index Hgb O2 Saturation (95.0-98.0) % Mechanical Rate FiO2 % Tidal Volume PEEP Sodium (132-148) mmol/L Potassium (3.6-5.2) mmol/L Chloride (98-107) mmol/L Carbon Dioxide (22-30) mmol/L Anion Gap (10-20) BUN (7-17) mg/dL Creatinine (0.7-1.2) MG/DL Est GFR ( Amer) Est GFR (Non-Af Amer) Random Glucose (65-105) mg/dL Calcium (8.6-10.4) mg/dl Total Bilirubin (0.2-1.3) mg/dL AST (14-36) U/L ALT (9-52) U/L Alkaline Phosphatase (38-126) U/L Total Protein (6.3-8.3) g/dL Albumin (3.5-5.0) g/dL Globulin (2.2-3.9) gm/dL Albumin/Globulin Ratio (1.0-2.1) Random Vancomycin 24.52 ug/mL Laboratory Results - last 24 hr 06/14/16 06/15/16 06/15/16 19:56 05:51 06:53 WBC 10.9 H RBC 3.66 L Hgb 10.0 L Hct 31.8 L MCV 86.7 MCH 27.3 MCHC 31.5 L RDW 22.0 H Plt Count 182 MPV 8.3 Neut % (Auto) 87.6 H Lymph % (Auto) 4.8 L Meagher % (Auto) 7.4 Eos % (Auto) 0.0 Baso % (Auto) 0.2 Neut # 9.5 H Lymph # 0.5 L Meagher # 0.8 Eos # 0.0 Baso # 0.0 Neutrophils % (Manual) 85 H Band Neutrophils % 3 H Lymphocytes % (Manual) 5 L Monocytes % (Manual) 7 Platelet Estimate Normal Large Platelets Present Hypochromasia (manual) Slight Poikilocytosis (manual Slight Anisocytosis (manual) Slight Microcytosis (manual) Slight Macrocytosis (manual) Slight Tear Drop Cells Slight Ovalocytes Slight Schistocytes Slight Puncture Site Rr pCO2 35 pO2 89 HCO3 21.9 ABG pH 7.38 ABG Total CO2 21.8 L ABG O2 Saturation 98.8 H ABG Base Excess -3.9 L ABG Hemoglobin 9.7 L ABG Carboxyhemoglobin 1.7 H POC ABG HHb (Measured) 1.2 ABG Methemoglobin 1.6 Oscar Test Pos A-a O2 Difference 81.0 Respiratory Index 0.9 Hgb O2 Saturation 95.5 Mechanical Rate 14 FiO2 30.0 Tidal Volume 500 PEEP 5 Sodium Potassium Chloride Carbon Dioxide Anion Gap BUN Creatinine Est GFR ( Amer) Est GFR (Non-Af Amer) Random Glucose Calcium Total Bilirubin AST ALT Alkaline Phosphatase Total Protein Albumin Globulin Albumin/Globulin Ratio Random Vancomycin 24.52 06/15/16 06:53 WBC RBC Hgb Hct MCV MCH MCHC RDW Plt Count MPV Neut % (Auto) Lymph % (Auto) Meagher % (Auto) Eos % (Auto) Baso % (Auto) Neut # Lymph # Meagher # Eos # Baso # Neutrophils % (Manual) Band Neutrophils % Lymphocytes % (Manual) Monocytes % (Manual) Platelet Estimate Large Platelets Hypochromasia (manual) Poikilocytosis (manual Anisocytosis (manual) Microcytosis (manual) Macrocytosis (manual) Tear Drop Cells Ovalocytes Schistocytes Puncture Site pCO2 pO2 HCO3 ABG pH ABG Total CO2 ABG O2 Saturation ABG Base Excess ABG Hemoglobin ABG Carboxyhemoglobin POC ABG HHb (Measured) ABG Methemoglobin Oscar Test A-a O2 Difference Respiratory Index Hgb O2 Saturation Mechanical Rate FiO2 Tidal Volume PEEP Sodium 144 Potassium 4.4 Chloride 112 H Carbon Dioxide 21 L Anion Gap 15 BUN 40 H Creatinine 1.4 H Est GFR ( Amer) 44 Est GFR (Non-Af Amer) 36 Random Glucose 142 H Calcium 6.1 L Total Bilirubin 0.8 AST 20 ALT 15 Alkaline Phosphatase 144 H Total Protein 5.2 L Albumin 2.3 L Globulin 3.0 Albumin/Globulin Ratio 0.8 L Random Vancomycin Review of Systems - Review of Systems Systems not reviewed;Unavailable: Intubated Critical Care Progress Note - Ventilator Checklist Head of Bed 30 Degrees: Yes Daily Sedation Vacation: Yes Daily Assessment of Readiness to Wean: Yes Daily Spontaneous Breathing Trial: Yes PUD Prophalyxis: Yes DVT Prophylaxis: Yes Assessment/Plan (1) UTI (urinary tract infection) Assessment and plan: 80 year old female with PMHx of CHF, COPD, HTN, Respiratory failure, recurrent UTIs. presented with dehydration, hypernatremia, acute on chronic respiratory failure, and a UTI. IR thoracentesis (06/09.) Intubated (06/10). Open thoracotomy, right chest tube placement (06/13). Neuro: Alert, following some commands. Precedex drip, titrating down. Pulm: Acute respiratory failure on vent. Right chest tube in place, drained 160 mL's overnight. COPD, decreased Solu-Medrol 20 mg IV every 12h. continue pressure support trials. CV: Septic shock on pressors, Levophed drip, titrating down. Hem: No acute issues Renal: Oliguria did not improve after extra fluids and albumin drip, possibly patient's poor baseline, with CKD. Patient is markedly fluid overloaded, will aggressively diurese for two days, lasix 40 IV q12h x 4 doses, to optimize for extubation. Endo: No acute issues GI: Isosource at 45 + free water 200 ml q6h ID: Septic shock secondary to UTI. Proteus in urine, Acinetobacter in the sputum. Continue Primaxin (proteus), started Tigecycline (Acinetobacter). ID - Dr. Cantrell DVT proph - heparin subcutaneous GI proph - Protonix marrufo for strict I/O's during acute illness Code status - DNR Crtical Care Time spent 35 minutes Multi-disciplinary rounds were performed with house staff, nursing, speech therapy, respiratory therapy, pharmacy and nutrition with integrated input from the primary team/attending and other consulting services. The documented time is cumulative and includes review of patient data/exams/labs/chart review and examination of the patient on rounds and throughout the day; time is exclusive of any procedures or teaching time. Current Visit: Yes Status: Acute Comment: Broad spectrum antibiotic Fine cultures
[2016-06-15] MEDS ORDERED: Midazolam 2 MG/2 ML VIAL IVP ONE (19:45)
[2016-06-15] MEDS ORDERED: Propofol 10 mg/ml Inj (20 ML) IVP STA (20:36)
--- NOTE | 2016-06-15 23:19 | CP.PCM.PN ---
Subjective - Date & Time of Evaluation Date of Evaluation: 06/15/16 Time of Evaluation: 10:03 - Subjective Subjective: Pt seen & examined, breathing better, less short of breath, hemodynamically more stable, afebrile, reamains intubated, alert and responsive, vent on 30% Fio2, [address] to wall suction, 450cc serosanguinous drainage/ 24hrs, dressing C/D/I. Objective - Vital Signs/Intake and Output Vital Signs (last 24 hours): Temp Pulse Resp BP Pulse Ox 98.3 F 125 H 19 99/59 L 99 06/15/16 20:00 06/15/16 23:00 06/15/16 23:00 06/15/16 23:00 06/15/16 23:00 Intake and Output: 06/15/16 06/16/16 18:59 06:59 Intake Total 1451.2 205.2 Output Total 845 120 Balance 606.2 85.2 - Medications Medications: Current Medications Albuterol/Ipratropium (Duoneb 3 Mg/0.5 Mg (3 Ml) Ud) 3 ml INH RQ6 SHARIF Last Admin: 06/15/16 19:10 Dose: 3 ml Furosemide (Lasix) 40 mg IVP Q12H SHARIF Stop: 06/16/16 21:31 Last Admin: 06/15/16 21:16 Dose: 40 mg Heparin Sodium (Porcine) (Heparin) 5,000 units SC Q8 SHARIF Last Admin: 06/15/16 21:18 Dose: 5,000 units Imipenem/Cilastatin Sodium 500 (mg/ Sodium Chloride) 100 mls @ 100 mls/hr IVPB Q8H SHARIF Last Admin: 06/15/16 17:52 Dose: 100 mls/hr Levetiracetam 500 mg/ Sodium (Chloride) 105 mls @ 420 mls/hr IVPB Q12H SHARIF Last Admin: 06/15/16 17:52 Dose: 420 mls/hr Norepinephrine Bitartrate 4 mg (/ Dextrose) 254 mls @ 15.24 mls/hr IV .[id number] PRN; Protocol; 4 MCG/MIN PRN Reason: TITRATE PER MD ORDER Last Titration: 06/15/16 13:40 Dose: 3.5 mcg/min, 13.33 mls/hr Tigecycline 50 mg/ Sodium (Chloride) 100 mls @ 100 mls/hr IVPB Q12H [facility] Last Admin: 06/15/16 13:44 Dose: 100 mls/hr Dexmedetomidine HCl 200 mcg/ (Sodium Chloride) 50 mls @ 6.51 mls/hr IV TITR PRN ; Protocol; 0.2 MCG/KG/HR PRN Reason: Agitation Last Admin: 06/15/16 22:39 Dose: 0.2 mcg/kg/hr, 6.51 mls/hr Methylprednisolone (Solu-Medrol) 20 mg IVP 0600,1800 [facility] Last Admin: 06/15/16 17:52 Dose: 20 mg Pantoprazole Sodium (Protonix Inj) 40 mg IVP DAILY [facility] Last Admin: 06/15/16 09:37 Dose: 40 mg - Labs Labs: 06/15/16 06:53 06/15/16 06:53 PT 14.4 SECONDS (9.7-12.2) H 06/13/16 06:28 INR 1.3 06/13/16 06:28 APTT 34 SECONDS (21-34) 06/13/16 06:28 - Constitutional Appears: No Acute Distress, Chronically Ill - Head Exam Head Exam: ATRAUMATIC, NORMAL INSPECTION, NORMOCEPHALIC - Eye Exam Eye Exam: EOMI, Normal appearance, PERRL Pupil Exam: NORMAL ACCOMODATION, PERRL - Respiratory Exam Respiratory Exam: Decreased Breath Sounds, Rales, Rhonchi - Cardiovascular Exam Cardiovascular Exam: REGULAR RHYTHM, +S1, +S2. absent: Murmur - GI/Abdominal Exam GI & Abdominal Exam: Soft, Normal Bowel Sounds. absent: Tenderness Assessment and Plan (1) UTI (urinary tract infection) Status: Acute (2) Dehydration Status: Acute (3) Hypotension Status: Acute (4) Acute onset sepsis Status: Acute (5) Respiratory failure Status: Acute (6) Hypertension Status: Acute
[2016-06-16] MEDS: Albuterol-Ipratrop 3 mg / 0.5 (3 ml) UD INH SCH ×4 (01:07→20:15)
[2016-06-16] MEDS: Dexmedetomidine Hydrochloride 200 MCG in Sodium Chloride 0.9% 48 ML IV PRN ×4 (03:50→12:59)
[2016-06-16 05:40] LABS: ABG ALLEN TEST POS; ABG MECHANICAL RATE 14; ARTERIAL BLOOD HGB O2 SAT 95.3 % (95.0-98.0); ATERIAL BLOOD GAS PEEP 5; DRAW SITE RR; HHB 1.4 % (0.0-5.0); METHEMOGLOBIN 1.3 % (0.0-3.0)
[2016-06-16] MEDS: levETIRAcetam 500 MG in Sodium Chloride 0.9% 100 ML IVPB SCH ×2 (06:12→18:29)
[2016-06-16] MEDS: MethylPREDNISolone 40 mg Vial IVP SCH ×2 (06:14→18:24)
[2016-06-16 06:50] LABS: ALB/GLOB RATIO 0.7 (1.0-2.1); CALCIUM 6.2 mg/dl (8.6-10.4); TOTAL PROTEIN 5.3 g/dL (6.3-8.3)
[2016-06-16 06:53] LABS: BASO # 0.1 K/uL (0.0-0.2); EOS % 0.2 % (0.0-4.0); NRBC % 0.3 % (0.0-2.0)
[2016-06-16 07:10] LABS: BASO % 0.4 % (0.0-2.0); LYMPH # 3.1 K/uL (1.0-4.3); LYMPH % 17.7 % (20.0-40.0); MEAN CELL VOLUME 86.9 fL (81.0-99.0); MEAN CORPUSCULAR HEMOGLOBIN 26.2 pg (27.0-31.0); MEAN CORPUSCULAR HGB CONC 30.2 g/dL (33.0-37.0); MEAN PLATELET VOLUME 8.8 fL (7.2-11.7); MONO % 5.5 % (0.0-10.0); RED CELL DISTRIBUTION WIDTH 22.5 % (11.5-14.5); WHITE BLOOD COUNT 17.7 K/uL (4.8-10.8)
--- NOTE | 2016-06-16 07:25 | OP ---
PROCEDURE DATE: 06/13/2016 PROCEDURE: This bronchoscopy on the 2 attending procedure given family was not available at the time. Sedate with 100 mg of propofol and 2 mg of Versed. Bronchoscope was introduced through ET tube while oxygenating with 100% oxygen. Bronchoscope was introduced to the left main bronchi. No abnormalities noted. On the first deviation of the left main bronchi, the bronchi leading to the left lower lobe noted to have reduced lumen of around 90%. Mucosa looks swollen, unable to introduce the bronchoscope further down, minimal secretions noted. Lavage with saline was done and sent to the lab. Aminta Jolly MD cc: [id number] TT: 06/13/2016 15:13:33 tn MTDD
[2016-06-16] MEDS ORDERED: Albumin Human 25% (12.5 gm/50 ml) IV ONE (09:33)
[2016-06-16] MEDS ORDERED: Sodium Chloride 0.9% 500 ML IV ONE (09:36)
[2016-06-16 10:15] LABS: BODY FLUID TYPE PLEURAL
--- NOTE | 2016-06-16 11:15 | CP.CCUPN ---
<Nancy Morocho - Last Filed: 06/16/16 11:44> CCU Subjective - Physician Review Subjective (Free Text): Patient was seen and examined at bedside. Intubated PRVC settings: RR14, FiO2 30 %, PEEP 5, Tvolume 500, on 8 mcgs of levophed. Continued on Solumedrol 20mg IVP BID Patient was unable to tolerate being weaned this weekend, failed two CPAP trials. Bronchial washings showed Achinetobacter Baumannii patient is currently on Primaxin and Tygacil as per Dr. Cantrell. Lasix stopped, patient was fluid challenged and given 1 vial of albumin. CCU Objective - Vital Signs / Intake & Output Vital Signs (Last 4 hours): Vital Signs Temp Pulse Resp BP Pulse Ox 06/16/16 11:00 125 H 17 98 06/16/16 10:51 114 H 18 97/45 L 99 06/16/16 10:00 113 H 18 99 06/16/16 09:51 118 H 20 92/49 L 99 06/16/16 09:00 112 H 19 99 06/16/16 08:51 114 H 19 98/61 L 98 06/16/16 08:00 98.2 F 126 H 14 100 06/16/16 07:52 134 H 14 98/42 L 100 Intake and Output (Last 8hrs): Intake & Output 06/15/16 06/16/16 06/16/16 22:59 06:59 14:59 Intake Total 514.3 1531.7 1113.3 Output Total 355 500 55 Balance 159.3 1031.7 1058.3 Weight 286 lb 4 oz Intake: IV 545 Intake, IV Amount 274.3 466.7 813.3 Right Distal Port 67.8 116.3 638.8 Internal Jugular Right Proximal Port 206.5 50.4 24.5 Internal Jugular right medial 300 150 Oral 100 Tube Feeding 240 320 200 Other 200 Output: Chest Tube Drainage 130 270 Left Lateral Chest 130 270 Urine 225 230 55 Urethral (Gonzalez) 225 230 55 Other: # Bowel Movements 1 0 - Physical Exam Head: Positive for: Atraumatic, Normocephalic Pupils: Positive for: PERRL Extroacular Muscles: Positive for: EOMI Conjunctiva: Positive for: Normal Mouth: Positive for: Moist Mucous Membranes Respiratory/Chest: Positive for: Decreased Breath Sounds, Other (INTUBATED ) Cardiovascular: Positive for: Tachycardic Upper Extremity: Positive for: Normal Inspection, NORMAL PULSES. Negative for: Cyanosis, Edema Lower Extremity: Positive for: Normal Inspection, NORMAL PULSES. Negative for: Edema, CALF TENDERNESS Neurological: Positive for: GCS=15, CN II-XII Intact Skin: Positive for: Warm, Dry Psychiatric: Positive for: Alert, Oriented x 3 - Medications Active Medications: Active Medications Generic Name Dose Route Start Last Admin Trade Name Freq PRN Reason Stop Dose Admin Albuterol/Ipratropium 3 ml 06/11/16 10:45 06/16/16 07:28 Duoneb 3 Mg/0.5 Mg (3 Ml) Ud INH 3 ml RQ6 SHARIF Administration Heparin Sodium (Porcine) 5,000 units 06/12/16 14:00 06/16/16 06:14 Heparin SC 5,000 units Q8 SHARIF Administration Imipenem/Cilastatin Sodium 500 100 mls @ 100 mls/hr 06/06/16 18:00 06/16/16 10:05 mg/ Sodium Chloride IVPB 100 mls/hr Q8H SHARIF Administration Levetiracetam 500 mg/ Sodium 105 mls @ 420 mls/hr 06/07/16 18:30 06/16/16 06: 12 Chloride IVPB 420 mls/hr Q12H SHARIF Administration Norepinephrine Bitartrate 4 mg 254 mls @ 15.24 mls/hr 06/11/16 16:25 02:07 / Dextrose IV 3.93 mcg/min .[id number] PRN 14.97 mls/hr TITRATE PER MD ORDER Administration Protocol 4 MCG/MIN Tigecycline 50 mg/ Sodium 100 mls @ 100 mls/hr 06/15/16 02:00 06/16/16 02:06 Chloride IVPB 100 mls/hr Q12H SHARIF Administration Dexmedetomidine HCl 200 mcg/ 50 mls @ 6.51 mls/hr 06/15/16 22:00 06/16/16 06: 16 Sodium Chloride IV 0.2 mcg/kg/hr TITR PRN 6.51 mls/hr Agitation Administration Protocol 0.2 MCG/KG/HR Methylprednisolone 20 mg 06/15/16 18:00 06/16/16 06:14 Solu-Medrol IVP 20 mg 0600,1800 SHARIF Administration Pantoprazole Sodium 40 mg 06/05/16 10:00 06/16/16 10:04 Protonix Inj IVP 40 mg DAILY SHARIF Administration - Patient Studies Lab Studies: Microbiology Studies 06/13/16 16:00 Gram Stain - Final Chest Anaerobic Culture - Final NO ANAEROBES ISOLATED. Wound Culture - Preliminary No growth. 06/13/16 10:34 Mycobacterial Culture - Preliminary Other: Please Indicate 06/13/16 14:20 Bronchial Culture - Final Bronchial Washings Acinetobacter Baumannii 06/11/16 20:27 Gram Stain - Final Trachasp Sputum Culture - Final Acinetobacter Baumannii Lab Studies 06/16/16 06/16/16 06/16/16 Range/Units 10:12 06:33 06:32 WBC 17.7 H D (4.8-10.8) K/uL RBC 4.15 (3.80-5.20) Mil/uL Hgb 10.9 L (11.0-16.0) g/dL Hct 36.0 (34.0-47.0) % MCV 86.9 (81.0-99.0) fL MCH 26.2 L (27.0-31.0) pg MCHC 30.2 L (33.0-37.0) g/dL RDW 22.5 H (11.5-14.5) % Plt Count 266 (130-400) K/uL MPV 8.8 (7.2-11.7) fL Neut % (Auto) 76.2 H (50.0-75.0) % Lymph % (Auto) 17.7 L (20.0-40.0) % Orange % (Auto) 5.5 (0.0-10.0) % Eos % (Auto) 0.2 (0.0-4.0) % Baso % (Auto) 0.4 (0.0-2.0) % Neut # 13.5 H (1.8-7.0) K/uL Lymph # 3.1 (1.0-4.3) K/uL Orange # 1.0 H (0.0-0.8) K/uL Eos # 0.0 (0.0-0.7) K/uL Baso # 0.1 (0.0-0.2) K/uL Puncture Site pCO2 (35-45) mm/Hg pO2 (80-100) mm/Hg HCO3 (21-28) mmol/L ABG pH (7.35-7.45) ABG Total CO2 (22-28) mmol/L ABG O2 Saturation (95-98) % ABG Base Excess (-2.0-3.0) mmol/L ABG Hemoglobin (11.7-17.4) g/dL ABG Carboxyhemoglobin (0.5-1.5) % POC ABG HHb (Measured) (0.0-5.0) % ABG Methemoglobin (0.0-3.0) % Oscar Test A-a O2 Difference mm/Hg Respiratory Index Hgb O2 Saturation (95.0-98.0) % Mechanical Rate FiO2 % Tidal Volume PEEP Sodium 143 (132-148) mmol/L Potassium 4.0 (3.6-5.2) mmol/L Chloride 113 H (98-107) mmol/L Carbon Dioxide 20 L (22-30) mmol/L Anion Gap 14 (10-20) BUN 45 H (7-17) mg/dL Creatinine 1.5 H (0.7-1.2) MG/DL Est GFR ( Amer) 41 Est GFR (Non-Af Amer) 33 Random Glucose 110 H (65-105) mg/dL Calcium 6.2 L (8.6-10.4) mg/dl Total Bilirubin 1.0 (0.2-1.3) mg/dL AST 22 (14-36) U/L ALT 14 (9-52) U/L Alkaline Phosphatase 132 H (38-126) U/L Total Protein 5.3 L (6.3-8.3) g/dL Albumin 2.2 L (3.5-5.0) g/dL Globulin 3.1 (2.2-3.9) gm/dL Albumin/Globulin Ratio 0.7 L (1.0-2.1) Fluid Source Pleural 06/16/16 Range/Units 05:31 WBC (4.8-10.8) K/uL RBC (3.80-5.20) Mil/uL Hgb (11.0-16.0) g/dL Hct (34.0-47.0) % MCV (81.0-99.0) fL MCH (27.0-31.0) pg MCHC (33.0-37.0) g/dL RDW (11.5-14.5) % Plt Count (130-400) K/uL MPV (7.2-11.7) fL Neut % (Auto) (50.0-75.0) % Lymph % (Auto) (20.0-40.0) % Orange % (Auto) (0.0-10.0) % Eos % (Auto) (0.0-4.0) % Baso % (Auto) (0.0-2.0) % Neut # (1.8-7.0) K/uL Lymph # (1.0-4.3) K/uL Orange # (0.0-0.8) K/uL Eos # (0.0-0.7) K/uL Baso # (0.0-0.2) K/uL Puncture Site Rr pCO2 35 (35-45) mm/Hg pO2 87 (80-100) mm/Hg HCO3 21.4 (21-28) mmol/L ABG pH 7.37 (7.35-7.45) ABG Total CO2 21.3 L (22-28) mmol/L ABG O2 Saturation 98.6 H (95-98) % ABG Base Excess -4.5 L (-2.0-3.0) mmol/L ABG Hemoglobin 10.9 L (11.7-17.4) g/dL ABG Carboxyhemoglobin 2.0 H (0.5-1.5) % POC ABG HHb (Measured) 1.4 (0.0-5.0) % ABG Methemoglobin 1.3 (0.0-3.0) % Oscar Test Pos A-a O2 Difference 83.0 mm/Hg Respiratory Index 1.0 Hgb O2 Saturation 95.3 (95.0-98.0) % Mechanical Rate 14 FiO2 30.0 % Tidal Volume 500 PEEP 5 Sodium (132-148) mmol/L Potassium (3.6-5.2) mmol/L Chloride (98-107) mmol/L Carbon Dioxide (22-30) mmol/L Anion Gap (10-20) BUN (7-17) mg/dL Creatinine (0.7-1.2) MG/DL Est GFR ( Amer) Est GFR (Non-Af Amer) Random Glucose (65-105) mg/dL Calcium (8.6-10.4) mg/dl Total Bilirubin (0.2-1.3) mg/dL AST (14-36) U/L ALT (9-52) U/L Alkaline Phosphatase (38-126) U/L Total Protein (6.3-8.3) g/dL Albumin (3.5-5.0) g/dL Globulin (2.2-3.9) gm/dL Albumin/Globulin Ratio (1.0-2.1) Fluid Source Laboratory Results - last 24 hr 06/16/16 06/16/16 06/16/16 05:31 06:32 06:33 WBC 17.7 H D RBC 4.15 Hgb 10.9 L Hct 36.0 MCV 86.9 MCH 26.2 L MCHC 30.2 L RDW 22.5 H Plt Count 266 MPV 8.8 Neut % (Auto) 76.2 H Lymph % (Auto) 17.7 L Orange % (Auto) 5.5 Eos % (Auto) 0.2 Baso % (Auto) 0.4 Neut # 13.5 H Lymph # 3.1 Orange # 1.0 H Eos # 0.0 Baso # 0.1 Puncture Site Rr pCO2 35 pO2 87 HCO3 21.4 ABG pH 7.37 ABG Total CO2 21.3 L ABG O2 Saturation 98.6 H ABG Base Excess -4.5 L ABG Hemoglobin 10.9 L ABG Carboxyhemoglobin 2.0 H POC ABG HHb (Measured) 1.4 ABG Methemoglobin 1.3 Oscar Test Pos A-a O2 Difference 83.0 Respiratory Index 1.0 Hgb O2 Saturation 95.3 Mechanical Rate 14 FiO2 30.0 Tidal Volume 500 PEEP 5 Sodium 143 Potassium 4.0 Chloride 113 H Carbon Dioxide 20 L Anion Gap 14 BUN 45 H Creatinine 1.5 H Est GFR ( Amer) 41 Est GFR (Non-Af Amer) 33 Random Glucose 110 H Calcium 6.2 L Total Bilirubin 1.0 AST 22 ALT 14 Alkaline Phosphatase 132 H Total Protein 5.3 L Albumin 2.2 L Globulin 3.1 Albumin/Globulin Ratio 0.7 L Fluid Source 06/16/16 10:12 WBC RBC Hgb Hct MCV MCH MCHC RDW Plt Count MPV Neut % (Auto) Lymph % (Auto) Orange % (Auto) Eos % (Auto) Baso % (Auto) Neut # Lymph # Orange # Eos # Baso # Puncture Site pCO2 pO2 HCO3 ABG pH ABG Total CO2 ABG O2 Saturation ABG Base Excess ABG Hemoglobin ABG Carboxyhemoglobin POC ABG HHb (Measured) ABG Methemoglobin Oscar Test A-a O2 Difference Respiratory Index Hgb O2 Saturation Mechanical Rate FiO2 Tidal Volume PEEP Sodium Potassium Chloride Carbon Dioxide Anion Gap BUN Creatinine Est GFR ( Amer) Est GFR (Non-Af Amer) Random Glucose Calcium Total Bilirubin AST ALT Alkaline Phosphatase Total Protein Albumin Globulin Albumin/Globulin Ratio Fluid Source Pleural Assessment/Plan - Assessment and Plan (Free Text) Assessment: 80 year old female with PMHx of CHF, COPD, HTN, Respiratory failure, recurrent UTIs. presented with dehydration, hypernatremia, acute on chronic respiratory failure, and a UTI. IR thoracentesis (06/09.) Intubated (06/10). Open thoracotomy, right chest tube placement (06/13). Plan: Neuro: Alert, following some commands. Precedex drip, titrating down. Pulm: Acute respiratory failure on vent. PVRC: PEEP 5, RR 14, FiO2 30% Bronchoscopy performed, chest tube inserted. Right chest tube in place, drained 270 mL's overnight. COPD, decreased Solu-Medrol 20 mg IV every 12h. Continue pressure support trials. CV: Septic shock on Levophed drip, titrating down. Right IJ inserted. Hem: No acute issues Renal: Oliguria did not improve after extra fluids and albumin drip, possibly patient's poor baseline, with CKD. Another albumin dose was administered. Endo: No acute issues GI: Isosource at 45 + free water 200 ml q6h ID: Septic shock secondary to UTI. Proteus in urine, Acinetobacter in the sputum. Continue Primaxin (proteus), started Tigecycline (Acinetobacter). ID - Dr. Cantrell. F/U fluid studies MSK: dopplers to rule out DVT Prophylaxis: DVT- heparin subQ, GI proph - Protonix Palliative care consulted DW Rashawn Kirby DO, PGY-1 <Cheo Farnsworth S - Last Filed: 06/16/16 17:59> CCU Objective - Vital Signs / Intake & Output Vital Signs (Last 4 hours): Vital Signs Pulse Resp BP Pulse Ox 06/16/16 17:00 100 H 14 100 06/16/16 16:52 111 H 14 113/57 L 99 06/16/16 16:00 114 H 15 100 06/16/16 15:51 112 H 14 90/69 L 98 06/16/16 15:00 116 H 15 100 06/16/16 14:53 113 H 21 98/59 L 98 06/16/16 14:24 114 H 14 97/46 L 100 06/16/16 14:00 106 H 14 100 Intake and Output (Last 8hrs): Intake & Output 06/16/16 06/16/16 06/16/16 06:59 14:59 22:59 Intake Total 1531.7 1842.0 254.7 Output Total 500 120 80 Balance 1031.7 1722.0 174.7 Weight 286 lb 4 oz Intake: IV 545 304 Intake, IV Amount 466.7 918.0 104.7 Right Distal Port 116.3 728.8 90 Internal Jugular Right Proximal Port 50.4 39.2 14.7 Internal Jugular right medial 300 150 Oral 300 30 Tube Feeding 320 320 120 Other 200 Output: Chest Tube Drainage 270 Left Lateral Chest 270 Urine 230 120 80 Urethral (Gonzalez) 230 120 80 Other: # Bowel Movements 0 0 - Medications Active Medications: Active Medications Generic Name Dose Route Start Last Admin Trade Name Freq PRN Reason Stop Dose Admin Albuterol/Ipratropium 3 ml 06/11/16 10:45 06/16/16 13:50 Duoneb 3 Mg/0.5 Mg (3 Ml) Ud INH 3 ml RQ6 SHARIF Administration Heparin Sodium (Porcine) 5,000 units 06/12/16 14:00 06/16/16 14:24 Heparin SC 5,000 units Q8 SHARIF Administration Imipenem/Cilastatin Sodium 500 100 mls @ 100 mls/hr 06/06/16 18:00 06/16/16 10:05 mg/ Sodium Chloride IVPB 100 mls/hr Q8H SHARIF Administration Levetiracetam 500 mg/ Sodium 105 mls @ 420 mls/hr 06/07/16 18:30 06/16/16 06: 12 Chloride IVPB 420 mls/hr Q12H SHARIF Administration Norepinephrine Bitartrate 4 mg 254 mls @ 15.24 mls/hr 06/11/16 16:25 14:24 / Dextrose IV 8 mcg/min .[id number] PRN 30.48 mls/hr TITRATE PER MD ORDER Administration Protocol 4 MCG/MIN Tigecycline 50 mg/ Sodium 100 mls @ 100 mls/hr 06/15/16 02:00 06/16/16 14:13 Chloride IVPB 100 mls/hr Q12H SHARIF Administration Dexmedetomidine HCl 200 mcg/ 50 mls @ 6.51 mls/hr 06/15/16 22:00 06/16/16 12: 59 Sodium Chloride IV 0.15 mcg/kg/hr TITR PRN 4.9 mls/hr Agitation Administration Protocol 0.2 MCG/KG/HR Methylprednisolone 20 mg 06/15/16 18:00 06/16/16 06:14 Solu-Medrol IVP 20 mg 0600,1800 SHARIF Administration Pantoprazole Sodium 40 mg 06/05/16 10:00 06/16/16 10:04 Protonix Inj IVP 40 mg DAILY SHARIF Administration - Patient Studies Lab Studies: Microbiology Studies 06/13/16 16:00 Gram Stain - Final Chest Anaerobic Culture - Final NO ANAEROBES ISOLATED. Wound Culture - Final No growth. 06/13/16 10:34 Mycobacterial Culture - Preliminary Other: Please Indicate Lab Studies 06/16/16 06/16/16 06/16/16 Range/Units 10:12 06:33 06:32 WBC 17.7 H D (4.8-10.8) K/uL RBC 4.15 (3.80-5.20) Mil/uL Hgb 10.9 L (11.0-16.0) g/dL Hct 36.0 (34.0-47.0) % MCV 86.9 (81.0-99.0) fL MCH 26.2 L (27.0-31.0) pg MCHC 30.2 L (33.0-37.0) g/dL RDW 22.5 H (11.5-14.5) % Plt Count 266 (130-400) K/uL MPV 8.8 (7.2-11.7) fL Neut % (Auto) 76.2 H (50.0-75.0) % Lymph % (Auto) 17.7 L (20.0-40.0) % Orange % (Auto) 5.5 (0.0-10.0) % Eos % (Auto) 0.2 (0.0-4.0) % Baso % (Auto) 0.4 (0.0-2.0) % Neut # 13.5 H (1.8-7.0) K/uL Lymph # 3.1 (1.0-4.3) K/uL Orange # 1.0 H (0.0-0.8) K/uL Eos # 0.0 (0.0-0.7) K/uL Baso # 0.1 (0.0-0.2) K/uL Puncture Site pCO2 (35-45) mm/Hg pO2 (80-100) mm/Hg HCO3 (21-28) mmol/L ABG pH (7.35-7.45) ABG Total CO2 (22-28) mmol/L ABG O2 Saturation (95-98) % ABG Base Excess (-2.0-3.0) mmol/L ABG Hemoglobin (11.7-17.4) g/dL ABG Carboxyhemoglobin (0.5-1.5) % POC ABG HHb (Measured) (0.0-5.0) % ABG Methemoglobin (0.0-3.0) % Oscar Test A-a O2 Difference mm/Hg Respiratory Index Hgb O2 Saturation (95.0-98.0) % Mechanical Rate FiO2 % Tidal Volume PEEP Sodium 143 (132-148) mmol/L Potassium 4.0 (3.6-5.2) mmol/L Chloride 113 H (98-107) mmol/L Carbon Dioxide 20 L (22-30) mmol/L Anion Gap 14 (10-20) BUN 45 H (7-17) mg/dL Creatinine 1.5 H (0.7-1.2) MG/DL Est GFR ( Amer) 41 Est GFR (Non-Af Amer) 33 Random Glucose 110 H (65-105) mg/dL Calcium 6.2 L (8.6-10.4) mg/dl Total Bilirubin 1.0 (0.2-1.3) mg/dL AST 22 (14-36) U/L ALT 14 (9-52) U/L Alkaline Phosphatase 132 H (38-126) U/L Total Protein 5.3 L (6.3-8.3) g/dL Albumin 2.2 L (3.5-5.0) g/dL Globulin 3.1 (2.2-3.9) gm/dL Albumin/Globulin Ratio 0.7 L (1.0-2.1) Fluid Source Pleural Fluid Appearance Bloody (CLEAR) Fluid WBC 979.0 H (0.0-300.0) /mm3 Fluid RBC 136218.0 H (0.0-0.0) /mm3 Fluid Tot Cell Count TEST NOT PERFORMED Fluid Neutrophils 50.0 H (0-0) % Fluid Lymphocytes 48.0 H (0-0) % Fld Monocyte/Macrophag 2 H (0-0) % Fluid Comment TEST NOT PERFORMED 06/16/16 Range/Units 05:31 WBC (4.8-10.8) K/uL RBC (3.80-5.20) Mil/uL Hgb (11.0-16.0) g/dL Hct (34.0-47.0) % MCV (81.0-99.0) fL MCH (27.0-31.0) pg MCHC (33.0-37.0) g/dL RDW (11.5-14.5) % Plt Count (130-400) K/uL MPV (7.2-11.7) fL Neut % (Auto) (50.0-75.0) % Lymph % (Auto) (20.0-40.0) % Orange % (Auto) (0.0-10.0) % Eos % (Auto) (0.0-4.0) % Baso % (Auto) (0.0-2.0) % Neut # (1.8-7.0) K/uL Lymph # (1.0-4.3) K/uL Orange # (0.0-0.8) K/uL Eos # (0.0-0.7) K/uL Baso # (0.0-0.2) K/uL Puncture Site Rr pCO2 35 (35-45) mm/Hg pO2 87 (80-100) mm/Hg HCO3 21.4 (21-28) mmol/L ABG pH 7.37 (7.35-7.45) ABG Total CO2 21.3 L (22-28) mmol/L ABG O2 Saturation 98.6 H (95-98) % ABG Base Excess -4.5 L (-2.0-3.0) mmol/L ABG Hemoglobin 10.9 L (11.7-17.4) g/dL ABG Carboxyhemoglobin 2.0 H (0.5-1.5) % POC ABG HHb (Measured) 1.4 (0.0-5.0) % ABG Methemoglobin 1.3 (0.0-3.0) % Oscar Test Pos A-a O2 Difference 83.0 mm/Hg Respiratory Index 1.0 Hgb O2 Saturation 95.3 (95.0-98.0) % Mechanical Rate 14 FiO2 30.0 % Tidal Volume 500 PEEP 5 Sodium (132-148) mmol/L Potassium (3.6-5.2) mmol/L Chloride (98-107) mmol/L Carbon Dioxide (22-30) mmol/L Anion Gap (10-20) BUN (7-17) mg/dL Creatinine (0.7-1.2) MG/DL Est GFR ( Amer) Est GFR (Non-Af Amer) Random Glucose (65-105) mg/dL Calcium (8.6-10.4) mg/dl Total Bilirubin (0.2-1.3) mg/dL AST (14-36) U/L ALT (9-52) U/L Alkaline Phosphatase (38-126) U/L Total Protein (6.3-8.3) g/dL Albumin (3.5-5.0) g/dL Globulin (2.2-3.9) gm/dL Albumin/Globulin Ratio (1.0-2.1) Fluid Source Fluid Appearance (CLEAR) Fluid WBC (0.0-300.0) /mm3 Fluid RBC (0.0-0.0) /mm3 Fluid Tot Cell Count Fluid Neutrophils (0-0) % Fluid Lymphocytes (0-0) % Fld Monocyte/Macrophag (0-0) % Fluid Comment Laboratory Results - last 24 hr 06/16/16 06/16/16 06/16/16 05:31 06:32 06:33 WBC 17.7 H D RBC 4.15 Hgb 10.9 L Hct 36.0 MCV 86.9 MCH 26.2 L MCHC 30.2 L RDW 22.5 H Plt Count 266 MPV 8.8 Neut % (Auto) 76.2 H Lymph % (Auto) 17.7 L Orange % (Auto) 5.5 Eos % (Auto) 0.2 Baso % (Auto) 0.4 Neut # 13.5 H Lymph # 3.1 Orange # 1.0 H Eos # 0.0 Baso # 0.1 Puncture Site Rr pCO2 35 pO2 87 HCO3 21.4 ABG pH 7.37 ABG Total CO2 21.3 L ABG O2 Saturation 98.6 H ABG Base Excess -4.5 L ABG Hemoglobin 10.9 L ABG Carboxyhemoglobin 2.0 H POC ABG HHb (Measured) 1.4 ABG Methemoglobin 1.3 Oscar Test Pos A-a O2 Difference 83.0 Respiratory Index 1.0 Hgb O2 Saturation 95.3 Mechanical Rate 14 FiO2 30.0 Tidal Volume 500 PEEP 5 Sodium 143 Potassium 4.0 Chloride 113 H Carbon Dioxide 20 L Anion Gap 14 BUN 45 H Creatinine 1.5 H Est GFR ( Amer) 41 Est GFR (Non-Af Amer) 33 Random Glucose 110 H Calcium 6.2 L Total Bilirubin 1.0 AST 22 ALT 14 Alkaline Phosphatase 132 H Total Protein 5.3 L Albumin 2.2 L Globulin 3.1 Albumin/Globulin Ratio 0.7 L Fluid Source Fluid Appearance Fluid WBC Fluid RBC Fluid Tot Cell Count Fluid Neutrophils Fluid Lymphocytes Fld Monocyte/Macrophag Fluid Comment 06/16/16 10:12 WBC RBC Hgb Hct MCV MCH MCHC RDW Plt Count MPV Neut % (Auto) Lymph % (Auto) Orange % (Auto) Eos % (Auto) Baso % (Auto) Neut # Lymph # Orange # Eos # Baso # Puncture Site pCO2 pO2 HCO3 ABG pH ABG Total CO2 ABG O2 Saturation ABG Base Excess ABG Hemoglobin ABG Carboxyhemoglobin POC ABG HHb (Measured) ABG Methemoglobin Oscar Test A-a O2 Difference Respiratory Index Hgb O2 Saturation Mechanical Rate FiO2 Tidal Volume PEEP Sodium Potassium Chloride Carbon Dioxide Anion Gap BUN Creatinine Est GFR ( Amer) Est GFR (Non-Af Amer) Random Glucose Calcium Total Bilirubin AST ALT Alkaline Phosphatase Total Protein Albumin Globulin Albumin/Globulin Ratio Fluid Source Pleural Fluid Appearance Bloody Fluid WBC 979.0 H Fluid RBC 817352.0 H Fluid Tot Cell Count TEST NOT PERFORMED Fluid Neutrophils 50.0 H Fluid Lymphocytes 48.0 H Fld Monocyte/Macrophag 2 H Fluid Comment TEST NOT PERFORMED Assessment/Plan (1) Acute respiratory failure Current Visit: No Status: Acute Comment: secondary to pneumonia and sepsis Thick secretions from ET tube Continue antibiotics Wean as tolerated (2) Pleural effusion Current Visit: Yes Status: Acute (3) UTI (urinary tract infection) Current Visit: Yes Status: Acute Comment: Broad spectrum antibiotic Fine cultures Attending/Attestation - Attestation I have personally seen and examined this patient.: Yes I have fully participated in the care of the patient.: Yes I have reviewed all pertinent clinical information: Yes Notes (Text): 06/16/16 17:54 Patient seen and examined in the intensive care unit. Case discussed with house staff in the morning rounds. Remains intubated on ventilatory support and failed 2 last CPAP trials. Being treated for parapneumonic effusion, status post chest tube insertion Open eyes to stimuli Tolerating feeding Continue antibiotics as per infectious disease
[2016-06-16 14:05] LABS: BF GROSS APPEARANCE BLOODY (CLEAR)
--- NOTE | 2016-06-16 14:30 | CP.PCM.PN ---
Subjective - Date & Time of Evaluation Date of Evaluation: 06/16/16 Time of Evaluation: 14:30 - Subjective Subjective: Remais intubated. Afebrile, sinus tach. chest tube-450cc/serosanguinous/no air leak. [id number] pneumo. a/p: Satisfactory postop. Continue current care. Objective - Vital Signs/Intake and Output Vital Signs (last 24 hours): Temp Pulse Resp BP Pulse Ox 98.4 F 114 H 14 97/46 L 100 06/16/16 12:00 06/16/16 14:24 06/16/16 14:24 06/16/16 14:24 06/16/16 14:24 Intake and Output: 06/16/16 06/16/16 06:59 18:59 Intake Total 1692.1 1692.2 Output Total 585 65 Balance 1107.1 1627.2 - Medications Medications: Current Medications Albuterol/Ipratropium (Duoneb 3 Mg/0.5 Mg (3 Ml) Ud) 3 ml INH RQ6 [facility] Last Admin: 06/16/16 13:50 Dose: 3 ml Heparin Sodium (Porcine) (Heparin) 5,000 units SC Q8 SHARIF Last Admin: 06/16/16 14:24 Dose: 5,000 units Imipenem/Cilastatin Sodium 500 (mg/ Sodium Chloride) 100 mls @ 100 mls/hr IVPB Q8H [facility] Last Admin: 06/16/16 10:05 Dose: 100 mls/hr Levetiracetam 500 mg/ Sodium (Chloride) 105 mls @ 420 mls/hr IVPB Q12H [facility] Last Admin: 06/16/16 06:12 Dose: 420 mls/hr Norepinephrine Bitartrate 4 mg (/ Dextrose) 254 mls @ 15.24 mls/hr IV .[id number] PRN; Protocol; 4 MCG/MIN PRN Reason: TITRATE PER MD ORDER Last Admin: 06/16/16 14:24 Dose: 3.93 mcg/min, 14.97 mls/hr Tigecycline 50 mg/ Sodium (Chloride) 100 mls @ 100 mls/hr IVPB Q12H [facility] Last Admin: 06/16/16 02:06 Dose: 100 mls/hr Dexmedetomidine HCl 200 mcg/ (Sodium Chloride) 50 mls @ 6.51 mls/hr IV TITR PRN ; Protocol; 0.2 MCG/KG/HR PRN Reason: Agitation Last Admin: 06/16/16 12:59 Dose: 0.15 mcg/kg/hr, 4.9 mls/hr Methylprednisolone (Solu-Medrol) 20 mg IVP 0600,1800 [facility] Last Admin: 06/16/16 06:14 Dose: 20 mg Pantoprazole Sodium (Protonix Inj) 40 mg IVP DAILY [facility] Last Admin: 06/16/16 10:04 Dose: 40 mg - Labs Labs: 06/16/16 06:32 06/16/16 06:33 PT 14.4 SECONDS (9.7-12.2) H 06/13/16 06:28 INR 1.3 06/13/16 06:28 APTT 34 SECONDS (21-34) 06/13/16 06:28
--- NOTE | 2016-06-16 15:06 | RAD ---
Indication: Status post left chest tube Portable chest radiograph Comparison: Chest x-ray performed 06/15/16 Findings: Examination markedly limited by habitus, hypoinflation, and marked patient obliquity. Endotracheal tube, nasogastric tube, right IJ approach central venous catheter and left-sided chest tube present. Cardiomegaly. Small left pleural effusion associated consolidation. Small right pleural effusion. Pulmonary venous congestion. No definite pneumothorax. Please note that chest x-ray has limited sensitivity for the detection of pulmonary masses. Degenerative changes. Impression: Limited study. Endotracheal tube, nasogastric tube, right IJ approach central venous catheter and left-sided chest tube present. Cardiomegaly. Small left pleural effusion associated consolidation. Small right pleural effusion. Pulmonary venous congestion.
[2016-06-16] MEDS ORDERED: Furosemide 100 MG in Sodium Chloride 0.9% 90 ML IVP SCH (20:45)
--- NOTE | 2016-06-16 22:13 | CP.PCM.PN ---
Subjective - Date & Time of Evaluation Date of Evaluation: 06/16/16 Time of Evaluation: 10:11 - Subjective Subjective: Pt seen and examined, Remais intubated. Afebrile, sinus tach. chest tube-450cc/serosanguinous/no air leak. [id number] pneumo. a/p: Satisfactory postop. Continue current care.attempt weaning Objective - Vital Signs/Intake and Output Vital Signs (last 24 hours): Temp Pulse Resp BP Pulse Ox 98.4 F 108 H 14 112/65 98 06/16/16 12:00 06/16/16 21:00 06/16/16 21:00 06/16/16 21:32 06/16/16 21:00 Intake and Output: 06/16/16 06/17/16 18:59 06:59 Intake Total 2371.6 114.7 Output Total 210 290 Balance 2161.6 -175.3 - Medications Medications: Current Medications Albuterol/Ipratropium (Duoneb 3 Mg/0.5 Mg (3 Ml) Ud) 3 ml INH RQ6 [facility] Last Admin: 06/16/16 20:15 Dose: 3 ml Heparin Sodium (Porcine) (Heparin) 5,000 units SC Q8 [facility] Last Admin: 06/16/16 21:26 Dose: 5,000 units Imipenem/Cilastatin Sodium 500 (mg/ Sodium Chloride) 100 mls @ 100 mls/hr IVPB Q8H [facility] Last Admin: 06/16/16 18:25 Dose: 100 mls/hr Levetiracetam 500 mg/ Sodium (Chloride) 105 mls @ 420 mls/hr IVPB Q12H [facility] Last Admin: 06/16/16 18:29 Dose: 420 mls/hr Norepinephrine Bitartrate 4 mg (/ Dextrose) 254 mls @ 15.24 mls/hr IV .[id number] PRN; Protocol; 4 MCG/MIN PRN Reason: TITRATE PER MD ORDER Last Admin: 06/16/16 14:24 Dose: 8 mcg/min, 30.48 mls/hr Tigecycline 50 mg/ Sodium (Chloride) 100 mls @ 100 mls/hr IVPB Q12H [facility] Last Admin: 06/16/16 14:13 Dose: 100 mls/hr Dexmedetomidine HCl 200 mcg/ (Sodium Chloride) 50 mls @ 6.51 mls/hr IV TITR PRN ; Protocol; 0.2 MCG/KG/HR PRN Reason: Agitation Last Admin: 06/16/16 12:59 Dose: 0.15 mcg/kg/hr, 4.9 mls/hr Furosemide 100 mg/ Sodium (Chloride) 100 mls @ 5 mls/hr IVP .Q20H [facility]; 5 MG/HR PRN Reason: Protocol Last Admin: 06/16/16 21:32 Dose: 5 mls/hr Methylprednisolone (Solu-Medrol) 20 mg IVP 0600,1800 [facility] Last Admin: 06/16/16 18:24 Dose: 20 mg Pantoprazole Sodium (Protonix Inj) 40 mg IVP DAILY [facility] Last Admin: 06/16/16 10:04 Dose: 40 mg - Labs Labs: 06/16/16 06:32 06/16/16 06:33 PT 14.4 SECONDS (9.7-12.2) H 06/13/16 06:28 INR 1.3 06/13/16 06:28 APTT 34 SECONDS (21-34) 06/13/16 06:28 - Constitutional Appears: No Acute Distress, Chronically Ill - Eye Exam Eye Exam: EOMI, Normal appearance, PERRL Pupil Exam: NORMAL ACCOMODATION, PERRL - Respiratory Exam Respiratory Exam: Clear to Ausculation Bilateral, NORMAL BREATHING PATTERN - Cardiovascular Exam Cardiovascular Exam: REGULAR RHYTHM, +S1, +S2. absent: Murmur - Neurological Exam Neurological Exam: Alert, Awake - Psychiatric Exam Psychiatric exam: Normal Affect, Normal Mood Assessment and Plan (1) UTI (urinary tract infection) Status: Acute (2) Dehydration Status: Acute (3) Hypotension Status: Acute (4) Acute onset sepsis Status: Acute (5) Respiratory failure Status: Acute (6) Hypertension Status: Acute
--- NOTE | 2016-06-16 23:10 | CP.PCM.PN ---
Subjective - Date & Time of Evaluation Date of Evaluation: 06/16/16 Time of Evaluation: 23:10 - Subjective Subjective: afebrile STILL ON VENTILATOR UNABLE TO WEAN Patient on pressors because of hypotension AWAKE/RESPONSIVE S/P LT. CHEST TUBE -350ML Serosanguineous FLUID OBTAINED 06/13/16 bronchial washings +ve Acinetobacter Baumanni S- Tygacil, colistin R- pRIMAXIN. s/p RT IJ CATHETER PLACED 06/11/16 s/p thoracentesis 06/09 600cc serosanguinous fluid obtained. ROS. HEENT : N.head tilted to the left Resp : No cough, wheezing ,pleuritic CP ,or hemoptysis LT. CT IN PLACE. Cardio : TACHYCARDIC GI : No abd.pain, n/v ,diarrhea or GI bleeding . ACCOUNTS RECEIVABLE ASSISTANT : No headache, vertigo, focal deficit. Musculoskel : No joint swelling , Derm : No rash Psych : Normal affect. Ext : No swelling ,calf pain PE. Pt. is alert awake in no distress. V.S As noted in the chart Head ,ear nose,throat and eyes : Normal. Neck : Supple with normal carotids. Lungs: RHONCHI B/L +VE LT CHEST TUBE IN PLACE Heart : S1 & S2 normal with S4. No murmur.TACHYCARDIC Abd : Soft Neuro : Moves all ext. with no localized deficit. Ext : + EDEMA with intact pulses.Non tender calves Derm : No rashes or decubitus ulcer. LABS/RADIOLOGY: pleural fluid 06/16/16 sent today-p urine culture repeat negative growth bronchial washings +ve Acinetobacter Baumanni SPUTUM CULTURE+VE ACINETOBACTER BOUMANNI S - tYGACIL bLOOD CULTURES 06/13/16 -VE . BLOOD CULTURES 06/06/16 NEGATIVE .. URINE CULTURE +VE PROTEUS MIRABILIS -MDR chest x-ray . ET ( NG) ,RT. IJ, +VE LT. CT, SMALL LEFT>RT PLEURAL EFFUSION WITH BIBASILAR ATELECTASIS/EFFUSIONS. ASSESSMENT/PLAN : IMPRESSION; -RESPIRATORY FAILURE/ VAP/HAP -MDR -S/P LEFT-SIDED THORACENTESIS/ chest tube 06/13 - SEPSIS- SYNDROME /HYPOTENSION - [id number]-RESISTANT PROTEUS MIRABILIS -CHF -DM. -HX MANISH- MASTOIDITIS/CHOLESTEATOMA. PLAN; DC IV VANCOMYCIN.06/13 ON IV tYGACIL 100 MG LOADING DOSE FOLLOWED BY 50 EVERY 12 HOURLY.06/14 DC iv pRIMAXIN 500 MG EVERY 8 HOURLY -06/16/16 start IV Colistin 150 mg every 24 hourly. 06/16/16 mONITOR RENAL FUNCTIONS CLOSELY. pulmonary toilet. F/U PLEURAL FLUID /CULTURES. CASE DISCUSSED WITH PULMONARY MOBILE APPLICATION ENGINEER Objective - Vital Signs/Intake and Output Vital Signs (last 24 hours): Temp Pulse Resp BP Pulse Ox 98.4 F 108 H 14 112/65 98 06/16/16 12:00 06/16/16 21:00 06/16/16 21:00 06/16/16 21:32 06/16/16 21:00 Intake and Output: 06/16/16 06/17/16 18:59 06:59 Intake Total 2371.6 114.7 Output Total 210 290 Balance 2161.6 -175.3 - Medications Medications: Current Medications Albuterol/Ipratropium (Duoneb 3 Mg/0.5 Mg (3 Ml) Ud) 3 ml INH RQ6 [facility] Last Admin: 06/16/16 20:15 Dose: 3 ml Heparin Sodium (Porcine) (Heparin) 5,000 units SC Q8 [facility] Last Admin: 06/16/16 21:26 Dose: 5,000 units Imipenem/Cilastatin Sodium 500 (mg/ Sodium Chloride) 100 mls @ 100 mls/hr IVPB Q8H [facility] Last Admin: 06/16/16 18:25 Dose: 100 mls/hr Levetiracetam 500 mg/ Sodium (Chloride) 105 mls @ 420 mls/hr IVPB Q12H [facility] Last Admin: 06/16/16 18:29 Dose: 420 mls/hr Norepinephrine Bitartrate 4 mg (/ Dextrose) 254 mls @ 15.24 mls/hr IV .[id number] PRN; Protocol; 4 MCG/MIN PRN Reason: TITRATE PER MD ORDER Last Admin: 06/16/16 14:24 Dose: 8 mcg/min, 30.48 mls/hr Tigecycline 50 mg/ Sodium (Chloride) 100 mls @ 100 mls/hr IVPB Q12H [facility] Last Admin: 06/16/16 14:13 Dose: 100 mls/hr Dexmedetomidine HCl 200 mcg/ (Sodium Chloride) 50 mls @ 6.51 mls/hr IV TITR PRN ; Protocol; 0.2 MCG/KG/HR PRN Reason: Agitation Last Admin: 06/16/16 12:59 Dose: 0.15 mcg/kg/hr, 4.9 mls/hr Furosemide 100 mg/ Sodium (Chloride) 100 mls @ 5 mls/hr IVP .Q20H [facility]; 5 MG/HR PRN Reason: Protocol Last Admin: 06/16/16 21:32 Dose: 5 mls/hr Methylprednisolone (Solu-Medrol) 20 mg IVP 0600,1800 [facility] Last Admin: 06/16/16 18:24 Dose: 20 mg Pantoprazole Sodium (Protonix Inj) 40 mg IVP DAILY [facility] Last Admin: 06/16/16 10:04 Dose: 40 mg - Labs Labs: 06/16/16 06:32 06/16/16 06:33 PT 14.4 SECONDS (9.7-12.2) H 06/13/16 06:28 INR 1.3 06/13/16 06:28 APTT 34 SECONDS (21-34) 06/13/16 06:28 Assessment and Plan (1) UTI (urinary tract infection) Status: Acute (2) Dehydration Status: Acute (3) Acute respiratory failure Status: Acute (4) COPD (chronic obstructive pulmonary disease) Status: Acute (5) Hypotension Status: Acute (6) Acute onset sepsis Status: Acute
--- NOTE | 2016-06-16 23:26 | CARD ---
APPROVED REPORT EKG Measurement Heart [id number] <Conclusion> Sinus tachycardia Low voltage QRS Possible Lateral infarct, age undetermined Abnormal ECG
[2016-06-17] MEDS: Albuterol-Ipratrop 3 mg / 0.5 (3 ml) UD INH SCH ×4 (01:15→20:36)
[2016-06-17] MEDS: Dexmedetomidine Hydrochloride 200 MCG in Sodium Chloride 0.9% 48 ML IV PRN (01:27)
[2016-06-17 05:34] LABS: ABG ALLEN TEST POS; ABG MECHANICAL RATE 14; ARTERIAL BLOOD HGB O2 SAT 95.8 % (95.0-98.0); ATERIAL BLOOD GAS PEEP 5; DRAW SITE RR; METHEMOGLOBIN 1.2 % (0.0-3.0)
[2016-06-17] MEDS: MethylPREDNISolone 40 mg Vial IVP SCH ×2 (06:31→17:58)
[2016-06-17] MEDS: levETIRAcetam 500 MG in Sodium Chloride 0.9% 100 ML IVPB SCH ×2 (06:31→17:59)
[2016-06-17 06:44] LABS: POTASSIUM 4.3 mmol/L (3.6-5.2)
[2016-06-17 06:46] LABS: ALB/GLOB RATIO 0.8 (1.0-2.1); BILIRUBIN,TOTAL 1.2 mg/dL (0.2-1.3); TOTAL PROTEIN 5.3 g/dL (6.3-8.3)
[2016-06-17 06:47] LABS: CALCIUM 6.2 mg/dl (8.6-10.4); PHOSPHOROUS 4.6 mg/dL (2.5-4.5)
[2016-06-17 06:48] LABS: MAGNESIUM 1.8 mg/dL (1.6-2.3)
[2016-06-17 07:21] LABS: HEMATOCRIT 37.2 % (34.0-47.0); MEAN CORPUSCULAR HGB CONC 30.3 g/dL (33.0-37.0); MEAN PLATELET VOLUME 9.1 fL (7.2-11.7); PLATELET COUNT 296 K/uL (130-400); RED CELL DISTRIBUTION WIDTH 22.3 % (11.5-14.5); WHITE BLOOD COUNT 21.6 K/uL (4.8-10.8)
--- NOTE | 2016-06-17 08:52 | CP.CCUPN ---
<Nancy Morocho - Last Filed: 06/17/16 14:33> CCU Subjective - Physician Review Subjective (Free Text): Patient was seen and examined at bedside. [facility]: RR14, FiO2 30 %, PEEP 5, Tvolume 500, on 10 mcgs of levophed. Continued on Solumedrol 20mg IVP BID Patient was unable to tolerate being weaned this weekend, failed two CPAP trials. Bronchial washings showed Achinetobacter Baumannii patient is currently on Primaxin and Tygacil as per Dr. Cantrell. Patient had bilious output of 3000cc past [address] Abdomen and Pelvis was ordered but unable to be performed due to patient's body habitus. Abdominal xray was ordered showed dilated loops of bowel. Patient started on Flagyl, stool studies ordered. CCU Objective - Vital Signs / Intake & Output Vital Signs (Last 4 hours): Vital Signs Pulse Resp BP Pulse Ox 06/17/16 07:51 98 H 14 98/56 L 99 06/17/16 07:00 104 H 14 98 06/17/16 06:51 101 H 14 102/57 L 96 06/17/16 06:00 98 H 14 98 06/17/16 05:51 103 H 14 99/60 L 97 06/17/16 05:25 99 H 14 102/50 L 98 06/17/16 05:24 105 H 14 99 06/17/16 05:04 101 H 14 75/36 L 06/17/16 05:00 101 H 14 100 06/17/16 04:59 103 H 14 62/28 L 06/17/16 04:53 105 H 14 65/31 L 99 Intake and Output (Last 8hrs): Intake & Output 06/16/16 06/17/16 06/17/16 22:59 06:59 14:59 Intake Total 938.2 528.2 42.4 Output Total 430 3420 Balance 508.2 -2891.8 42.4 Weight 293 lb 3.437 oz Intake: IV 254 204 Intake, IV Amount 354.2 324.2 42.4 Right Distal Port 210 255.0 37.5 Internal Jugular Right Proximal Port 39.2 39.2 4.9 Internal Jugular right medial 105 30 Oral 30 Tube Feeding 300 Output: Chest Tube Drainage 150 40 Left Lateral Chest 150 40 Urine 280 280 Urethral (Gonzalez) 280 280 Other 3100 Other: # Bowel Movements 1 - Physical Exam Head: Positive for: Atraumatic, Normocephalic Pupils: Positive for: PERRL Extroacular Muscles: Positive for: EOMI Conjunctiva: Positive for: Normal Mouth: Positive for: Moist Mucous Membranes Respiratory/Chest: Positive for: Decreased Breath Sounds, Other (INTUBATED ) Cardiovascular: Positive for: Tachycardic Upper Extremity: Positive for: Normal Inspection, NORMAL PULSES. Negative for: Cyanosis, Edema Lower Extremity: Positive for: Normal Inspection, NORMAL PULSES. Negative for: Edema, CALF TENDERNESS Neurological: Positive for: GCS=15, CN II-XII Intact Skin: Positive for: Warm, Dry Psychiatric: Positive for: Alert, Oriented x 3 - Medications Active Medications: Active Medications Generic Name Dose Route Start Last Admin Trade Name Freq PRN Reason Stop Dose Admin Albuterol/Ipratropium 3 ml 06/11/16 10:45 06/17/16 07:40 Duoneb 3 Mg/0.5 Mg (3 Ml) Ud INH 3 ml RQ6 SHARIF Administration Heparin Sodium (Porcine) 5,000 units 06/17/16 10:00 Heparin SC Q12 SHARIF Levetiracetam 500 mg/ Sodium 105 mls @ 420 mls/hr 06/07/16 18:30 06/17/16 06: 31 Chloride IVPB 420 mls/hr Q12H SHARIF Administration Norepinephrine Bitartrate 4 mg 254 mls @ 15.24 mls/hr 06/11/16 16:25 05:10 / Dextrose IV 10 mcg/min .[id number] PRN 38.1 mls/hr TITRATE PER MD ORDER Titration Protocol 4 MCG/MIN Tigecycline 50 mg/ Sodium 100 mls @ 100 mls/hr 06/15/16 02:00 06/17/16 02:16 Chloride IVPB 100 mls/hr Q12H SHARIF Administration Dexmedetomidine HCl 200 mcg/ 50 mls @ 6.51 mls/hr 06/15/16 22:00 06/17/16 01: 27 Sodium Chloride IV 0.15 mcg/kg/hr TITR PRN 4.88 mls/hr Agitation Administration Protocol 0.2 MCG/KG/HR Colistimethate Sodium 150 mg/ 100 mls @ 200 mls/hr 06/17/16 00:00 06/17/16 01 :10 Sodium Chloride IV 200 mls/hr Q24H SHARIF Administration Methylprednisolone 20 mg 06/15/16 18:00 06/17/16 06:31 Solu-Medrol IVP 20 mg 0600,1800 SHARIF Administration Pantoprazole Sodium 40 mg 06/05/16 10:00 06/16/16 10:04 Protonix Inj IVP 40 mg DAILY SHARIF Administration - Patient Studies Lab Studies: Microbiology Studies 06/13/16 16:00 Gram Stain - Final Chest Anaerobic Culture - Final NO ANAEROBES ISOLATED. Wound Culture - Final No growth. Lab Studies 06/17/16 06/17/16 06/17/16 Range/Units 06:29 06:29 05:11 WBC 21.6 H (4.8-10.8) K/uL RBC 4.33 (3.80-5.20) Mil/uL Hgb 11.3 (11.0-16.0) g/dL Hct 37.2 (34.0-47.0) % MCV 86.0 (81.0-99.0) fL MCH 26.0 L (27.0-31.0) pg MCHC 30.3 L (33.0-37.0) g/dL RDW 22.3 H (11.5-14.5) % Plt Count 296 (130-400) K/uL MPV 9.1 (7.2-11.7) fL Puncture Site Rr pCO2 32 L (35-45) mm/Hg pO2 91 (80-100) mm/Hg HCO3 22.1 (21-28) mmol/L ABG pH 7.41 (7.35-7.45) ABG Total CO2 21.3 L (22-28) mmol/L ABG O2 Saturation 99.0 H (95-98) % ABG Base Excess -3.6 L (-2.0-3.0) mmol/L ABG Hemoglobin 11.2 L (11.7-17.4) g/dL ABG Carboxyhemoglobin 2.0 H (0.5-1.5) % POC ABG HHb (Measured) 1.0 (0.0-5.0) % ABG Methemoglobin 1.2 (0.0-3.0) % Oscar Test Pos A-a O2 Difference 83.0 mm/Hg Respiratory Index 0.9 Hgb O2 Saturation 95.8 (95.0-98.0) % Mechanical Rate 14 FiO2 30.0 % Tidal Volume 500 PEEP 5 Sodium 143 (132-148) mmol/L Potassium 4.3 (3.6-5.2) mmol/L Chloride 111 H (98-107) mmol/L Carbon Dioxide 18 L (22-30) mmol/L Anion Gap 18 (10-20) BUN 50 H (7-17) mg/dL Creatinine 1.6 H (0.7-1.2) MG/DL Est GFR ( Amer) 38 Est GFR (Non-Af Amer) 31 Random Glucose 145 H (65-105) mg/dL Calcium 6.2 L (8.6-10.4) mg/dl Phosphorus 4.6 H (2.5-4.5) mg/dL Magnesium 1.8 (1.6-2.3) mg/dL Total Bilirubin 1.2 (0.2-1.3) mg/dL AST 16 (14-36) U/L ALT 14 (9-52) U/L Alkaline Phosphatase 118 (38-126) U/L Total Protein 5.3 L (6.3-8.3) g/dL Albumin 2.3 L (3.5-5.0) g/dL Globulin 3.0 (2.2-3.9) gm/dL Albumin/Globulin Ratio 0.8 L (1.0-2.1) Fluid Source Fluid Appearance (CLEAR) Fluid WBC (0.0-300.0) /mm3 Fluid RBC (0.0-0.0) /mm3 Fluid Tot Cell Count Fluid Neutrophils (0-0) % Fluid Lymphocytes (0-0) % Fld Monocyte/Macrophag (0-0) % Fluid Comment 06/16/16 Range/Units 10:12 WBC (4.8-10.8) K/uL RBC (3.80-5.20) Mil/uL Hgb (11.0-16.0) g/dL Hct (34.0-47.0) % MCV (81.0-99.0) fL MCH (27.0-31.0) pg MCHC (33.0-37.0) g/dL RDW (11.5-14.5) % Plt Count (130-400) K/uL MPV (7.2-11.7) fL Puncture Site pCO2 (35-45) mm/Hg pO2 (80-100) mm/Hg HCO3 (21-28) mmol/L ABG pH (7.35-7.45) ABG Total CO2 (22-28) mmol/L ABG O2 Saturation (95-98) % ABG Base Excess (-2.0-3.0) mmol/L ABG Hemoglobin (11.7-17.4) g/dL ABG Carboxyhemoglobin (0.5-1.5) % POC ABG HHb (Measured) (0.0-5.0) % ABG Methemoglobin (0.0-3.0) % Oscar Test A-a O2 Difference mm/Hg Respiratory Index Hgb O2 Saturation (95.0-98.0) % Mechanical Rate FiO2 % Tidal Volume PEEP Sodium (132-148) mmol/L Potassium (3.6-5.2) mmol/L Chloride (98-107) mmol/L Carbon Dioxide (22-30) mmol/L Anion Gap (10-20) BUN (7-17) mg/dL Creatinine (0.7-1.2) MG/DL Est GFR ( Amer) Est GFR (Non-Af Amer) Random Glucose (65-105) mg/dL Calcium (8.6-10.4) mg/dl Phosphorus (2.5-4.5) mg/dL Magnesium (1.6-2.3) mg/dL Total Bilirubin (0.2-1.3) mg/dL AST (14-36) U/L ALT (9-52) U/L Alkaline Phosphatase (38-126) U/L Total Protein (6.3-8.3) g/dL Albumin (3.5-5.0) g/dL Globulin (2.2-3.9) gm/dL Albumin/Globulin Ratio (1.0-2.1) Fluid Source Pleural Fluid Appearance Bloody (CLEAR) Fluid WBC 979.0 H (0.0-300.0) /mm3 Fluid RBC 692036.0 H (0.0-0.0) /mm3 Fluid Tot Cell Count TEST NOT PERFORMED Fluid Neutrophils 50.0 H (0-0) % Fluid Lymphocytes 48.0 H (0-0) % Fld Monocyte/Macrophag 2 H (0-0) % Fluid Comment TEST NOT PERFORMED Laboratory Results - last 24 hr 06/16/16 06/17/16 06/17/16 10:12 05:11 06:29 WBC 21.6 H RBC 4.33 Hgb 11.3 Hct 37.2 MCV 86.0 MCH 26.0 L MCHC 30.3 L RDW 22.3 H Plt Count 296 MPV 9.1 Puncture Site Rr pCO2 32 L pO2 91 HCO3 22.1 ABG pH 7.41 ABG Total CO2 21.3 L ABG O2 Saturation 99.0 H ABG Base Excess -3.6 L ABG Hemoglobin 11.2 L ABG Carboxyhemoglobin 2.0 H POC ABG HHb (Measured) 1.0 ABG Methemoglobin 1.2 Oscar Test Pos A-a O2 Difference 83.0 Respiratory Index 0.9 Hgb O2 Saturation 95.8 Mechanical Rate 14 FiO2 30.0 Tidal Volume 500 PEEP 5 Sodium Potassium Chloride Carbon Dioxide Anion Gap BUN Creatinine Est GFR ( Amer) Est GFR (Non-Af Amer) Random Glucose Calcium Phosphorus Magnesium Total Bilirubin AST ALT Alkaline Phosphatase Total Protein Albumin Globulin Albumin/Globulin Ratio Fluid Source Pleural Fluid Appearance Bloody Fluid WBC 979.0 H Fluid RBC 178750.0 H Fluid Tot Cell Count TEST NOT PERFORMED Fluid Neutrophils 50.0 H Fluid Lymphocytes 48.0 H Fld Monocyte/Macrophag 2 H Fluid Comment TEST NOT PERFORMED 06/17/16 06:29 WBC RBC Hgb Hct MCV MCH MCHC RDW Plt Count MPV Puncture Site pCO2 pO2 HCO3 ABG pH ABG Total CO2 ABG O2 Saturation ABG Base Excess ABG Hemoglobin ABG Carboxyhemoglobin POC ABG HHb (Measured) ABG Methemoglobin Oscar Test A-a O2 Difference Respiratory Index Hgb O2 Saturation Mechanical Rate FiO2 Tidal Volume PEEP Sodium 143 Potassium 4.3 Chloride 111 H Carbon Dioxide 18 L Anion Gap 18 BUN 50 H Creatinine 1.6 H Est GFR ( Amer) 38 Est GFR (Non-Af Amer) 31 Random Glucose 145 H Calcium 6.2 L Phosphorus 4.6 H Magnesium 1.8 Total Bilirubin 1.2 AST 16 ALT 14 Alkaline Phosphatase 118 Total Protein 5.3 L Albumin 2.3 L Globulin 3.0 Albumin/Globulin Ratio 0.8 L Fluid Source Fluid Appearance Fluid WBC Fluid RBC Fluid Tot Cell Count Fluid Neutrophils Fluid Lymphocytes Fld Monocyte/Macrophag Fluid Comment Assessment/Plan - Assessment and Plan (Free Text) Assessment: 80 year old female with PMHx of CHF, COPD, HTN, Respiratory failure, recurrent UTIs. presented with dehydration, hypernatremia, acute on chronic respiratory failure, and a UTI. IR thoracentesis (06/09.) Intubated (06/10). Open thoracotomy, right chest tube placement (06/13). Plan: Neuro: Alert, following some commands. Precedex drip, titrating down. Pulm: Acute respiratory failure on vent. PVRC: PEEP 5, RR 14, FiO2 30% Bronchoscopy performed, chest tube inserted. Right chest tube in place, drained 80 mL's overnight. COPD, decreased Solu-Medrol 20 mg IV every 12h. Continue pressure support trials. CV: Septic shock on Levophed drip, titrating down. Right IJ inserted. Hem: No acute issues Renal: Oliguria did not improve after extra fluids and albumin drip, possibly patient's poor baseline, with CKD. Another albumin dose was administered. Endo: No acute issues GI: Isosource at 45 + free water 200 ml q6h; 2000cc bilious content - ID: Septic shock secondary to UTI. ID - Dr. Cantrell. Proteus in urine, Acinetobacter in the sputum. Stopped the Primaxin and started Coly-Mycin instead (due to resistance to Primaxin), started Tigecycline (Acinetobacter). Abdominal xray showed dilated bowel loops. Started on Flagyl. F/U stool studies , c diff. F/U fluid studies MSK: dopplers to rule out DVT due to swollen legs- negative for DVT Prophylaxis: DVT- heparin subQ, GI proph - Protonix Palliative care consulted DW Rashawn Arellano DO, PGY-1 <Freddy Figueroa - Last Filed: 06/17/16 19:13> CCU Objective - Vital Signs / Intake & Output Vital Signs (Last 4 hours): Vital Signs Temp Pulse Resp BP Pulse Ox 06/17/16 19:00 111 H 13 06/17/16 18:21 97 H 12 97/43 L 06/17/16 18:00 125 H 15 89 L 06/17/16 17:21 122 H 15 92/45 L 98 06/17/16 17:12 104 H 14 90/47 L 97 06/17/16 17:00 110 H 13 98 06/17/16 16:21 95 H 14 90/39 L 99 06/17/16 16:00 97.6 F 90 17 99 06/17/16 15:21 88 14 93/39 L 99 Intake and Output (Last 8hrs): Intake & Output 06/17/16 06/17/16 06/17/16 06:59 14:59 22:59 Intake Total 528.2 842.1 725 Output Total 3420 1250 975 Balance -2891.8 -407.9 -250 Weight 293 lb 3.437 oz Intake: IV 204 100 Intake, IV Amount 324.2 742.1 725 Right Distal Port 255.0 322.5 225 Internal Jugular Right Proximal Port 39.2 119.6 Internal Jugular right medial 30 300 500 Output: Chest Tube Drainage 40 120 Left Lateral Chest 40 120 Gastric Amount 1000 700 Stomach 1000 700 Urine 280 250 155 Urethral (Gonzalez) 280 250 155 Other 3100 - Medications Active Medications: Active Medications Generic Name Dose Route Start Last Admin Trade Name Freq PRN Reason Stop Dose Admin Albuterol/Ipratropium 3 ml 06/11/16 10:45 06/17/16 13:34 Duoneb 3 Mg/0.5 Mg (3 Ml) Ud INH 3 ml RQ6 SHARIF Administration Heparin Sodium (Porcine) 5,000 units 06/17/16 10:00 06/17/16 10:44 Heparin SC 5,000 units Q12 SHARIF Administration Levetiracetam 500 mg/ Sodium 105 mls @ 420 mls/hr 06/07/16 18:30 06/17/16 17: 59 Chloride IVPB 420 mls/hr Q12H SHARIF Administration Norepinephrine Bitartrate 4 mg 254 mls @ 15.24 mls/hr 06/11/16 16:25 13:19 / Dextrose IV 12 mcg/min .[id number] PRN 45.72 mls/hr TITRATE PER MD ORDER Administration Protocol 4 MCG/MIN Tigecycline 50 mg/ Sodium 100 mls @ 100 mls/hr 06/15/16 02:00 06/17/16 13:07 Chloride IVPB 100 mls/hr Q12H SHARIF Administration Dexmedetomidine HCl 200 mcg/ 50 mls @ 6.51 mls/hr 06/15/16 22:00 06/17/16 01: 27 Sodium Chloride IV 0.15 mcg/kg/hr TITR PRN 4.88 mls/hr Agitation Administration Protocol 0.2 MCG/KG/HR Colistimethate Sodium 150 mg/ 100 mls @ 200 mls/hr 06/17/16 00:00 06/17/16 01 :10 Sodium Chloride IV 200 mls/hr Q24H SHARIF Administration Lactated Ringer's 1,000 mls @ 100 mls/hr 06/17/16 11:45 06/17/16 12:03 Lactated Ringer's IV 100 mls/hr .Q10H SHARIF Administration Metronidazole 500 mg in 100 mls @ 100 mls/hr 06/17/16 15:00 06/17/16 16:20 Flagyl IVPB 100 mls/hr Q8 SHARIF Administration Methylprednisolone 20 mg 06/15/16 18:00 06/17/16 17:58 Solu-Medrol IVP 20 mg 0600,1800 SHARIF Administration Pantoprazole Sodium 40 mg 06/05/16 10:00 06/17/16 12:03 Protonix Inj IVP 40 mg DAILY SHARIF Administration - Patient Studies Lab Studies: Lab Studies 06/17/16 06/17/16 06/17/16 Range/Units 16:47 16:47 06:29 WBC 13.8 H (4.8-10.8) K/uL RBC 4.11 (3.80-5.20) Mil/uL Hgb 10.7 L (11.0-16.0) g/dL Hct 34.9 (34.0-47.0) % MCV 85.0 (81.0-99.0) fL MCH 26.0 L (27.0-31.0) pg MCHC 30.6 L (33.0-37.0) g/dL RDW 22.8 H (11.5-14.5) % Plt Count 163 D (130-400) K/uL MPV 8.8 (7.2-11.7) fL Neut % (Auto) 86.2 H (50.0-75.0) % Lymph % (Auto) 4.8 L (20.0-40.0) % Frontier % (Auto) 8.2 (0.0-10.0) % Eos % (Auto) 0.5 (0.0-4.0) % Baso % (Auto) 0.3 (0.0-2.0) % Neut # 11.9 H (1.8-7.0) K/uL Lymph # 0.7 L (1.0-4.3) K/uL Frontier # 1.1 H (0.0-0.8) K/uL Eos # 0.1 (0.0-0.7) K/uL Baso # 0.0 (0.0-0.2) K/uL Neutrophils % (Manual) 84 H (50-75) % Band Neutrophils % (0-2) % Lymphocytes % (Manual) 4 L (20-40) % Monocytes % (Manual) 10 (0-10) % Eosinophils % (Manual) 1 (0-4) % Metamyelocytes % 1 H (0-0) % Platelet Estimate Normal (NORMAL) Hypochromasia (manual) Slight Poikilocytosis (manual Slight Anisocytosis (manual) Slight Microcytosis (manual) Slight Tear Drop Cells Ovalocytes [place] Cells Puncture Site pCO2 (35-45) mm/Hg pO2 (80-100) mm/Hg HCO3 (21-28) mmol/L ABG pH (7.35-7.45) ABG Total CO2 (22-28) mmol/L ABG O2 Saturation (95-98) % ABG Base Excess (-2.0-3.0) mmol/L ABG Hemoglobin (11.7-17.4) g/dL ABG Carboxyhemoglobin (0.5-1.5) % POC ABG HHb (Measured) (0.0-5.0) % ABG Methemoglobin (0.0-3.0) % Oscar Test A-a O2 Difference mm/Hg Respiratory Index Hgb O2 Saturation (95.0-98.0) % Mechanical Rate FiO2 % Tidal Volume PEEP Sodium 143 143 (132-148) mmol/L Potassium 3.7 4.3 (3.6-5.2) mmol/L Chloride 110 H 111 H (98-107) mmol/L Carbon Dioxide 22 18 L (22-30) mmol/L Anion Gap 14 18 (10-20) BUN 52 H 50 H (7-17) mg/dL Creatinine 1.6 H 1.6 H (0.7-1.2) MG/DL Est GFR ( Amer) 38 38 Est GFR (Non-Af Amer) 31 31 Random Glucose 94 145 H (65-105) mg/dL Calcium 6.1 L 6.2 L (8.6-10.4) mg/dl Phosphorus 4.5 4.6 H (2.5-4.5) mg/dL Magnesium 1.7 1.8 (1.6-2.3) mg/dL Total Bilirubin 1.1 1.2 (0.2-1.3) mg/dL AST 14 16 (14-36) U/L ALT 16 14 (9-52) U/L Alkaline Phosphatase 114 118 (38-126) U/L Total Protein 5.1 L 5.3 L (6.3-8.3) g/dL Albumin 2.1 L 2.3 L (3.5-5.0) g/dL Globulin 2.9 3.0 (2.2-3.9) gm/dL Albumin/Globulin Ratio 0.7 L 0.8 L (1.0-2.1) Pleural Total Protein g/dL Pleural LDH U/L Pleural Glucose mg/dL 06/17/16 06/17/16 06/13/16 Range/Units 06:29 05:11 16:27 WBC 21.6 H (4.8-10.8) K/uL RBC 4.33 (3.80-5.20) Mil/uL Hgb 11.3 (11.0-16.0) g/dL Hct 37.2 (34.0-47.0) % MCV 86.0 (81.0-99.0) fL MCH 26.0 L (27.0-31.0) pg MCHC 30.3 L (33.0-37.0) g/dL RDW 22.3 H (11.5-14.5) % Plt Count 296 (130-400) K/uL MPV 9.1 (7.2-11.7) fL Neut % (Auto) 87.0 H (50.0-75.0) % Lymph % (Auto) 6.0 L (20.0-40.0) % Frontier % (Auto) 7.0 (0.0-10.0) % Eos % (Auto) 0.0 (0.0-4.0) % Baso % (Auto) 0.0 (0.0-2.0) % Neut # 19.0 H (1.8-7.0) K/uL Lymph # 1.3 (1.0-4.3) K/uL Frontier # 1.5 H (0.0-0.8) K/uL Eos # 0.0 (0.0-0.7) K/uL Baso # 0.0 (0.0-0.2) K/uL Neutrophils % (Manual) 90 H (50-75) % Band Neutrophils % 1 (0-2) % Lymphocytes % (Manual) 5 L (20-40) % Monocytes % (Manual) 4 (0-10) % Eosinophils % (Manual) (0-4) % Metamyelocytes % (0-0) % Platelet Estimate Normal (NORMAL) Hypochromasia (manual) Slight Poikilocytosis (manual Slight Anisocytosis (manual) Slight Microcytosis (manual) Tear Drop Cells Slight Ovalocytes Slight [place] Cells Slight Puncture Site Rr pCO2 32 L (35-45) mm/Hg pO2 91 (80-100) mm/Hg HCO3 22.1 (21-28) mmol/L ABG pH 7.41 (7.35-7.45) ABG Total CO2 21.3 L (22-28) mmol/L ABG O2 Saturation 99.0 H (95-98) % ABG Base Excess -3.6 L (-2.0-3.0) mmol/L ABG Hemoglobin 11.2 L (11.7-17.4) g/dL ABG Carboxyhemoglobin 2.0 H (0.5-1.5) % POC ABG HHb (Measured) 1.0 (0.0-5.0) % ABG Methemoglobin 1.2 (0.0-3.0) % Oscar Test Pos A-a O2 Difference 83.0 mm/Hg Respiratory Index 0.9 Hgb O2 Saturation 95.8 (95.0-98.0) % Mechanical Rate 14 FiO2 30.0 % Tidal Volume 500 PEEP 5 Sodium (132-148) mmol/L Potassium (3.6-5.2) mmol/L Chloride (98-107) mmol/L Carbon Dioxide (22-30) mmol/L Anion Gap (10-20) BUN (7-17) mg/dL Creatinine (0.7-1.2) MG/DL Est GFR ( Amer) Est GFR (Non-Af Amer) Random Glucose (65-105) mg/dL Calcium (8.6-10.4) mg/dl Phosphorus (2.5-4.5) mg/dL Magnesium (1.6-2.3) mg/dL Total Bilirubin (0.2-1.3) mg/dL AST (14-36) U/L ALT (9-52) U/L Alkaline Phosphatase (38-126) U/L Total Protein (6.3-8.3) g/dL Albumin (3.5-5.0) g/dL Globulin (2.2-3.9) gm/dL Albumin/Globulin Ratio (1.0-2.1) Pleural Total Protein <3.0 g/dL Pleural LDH 2223 U/L Pleural Glucose 144 mg/dL Laboratory Results - last 24 hr 06/13/16 06/17/16 06/17/16 16:27 05:11 06:29 WBC 21.6 H RBC 4.33 Hgb 11.3 Hct 37.2 MCV 86.0 MCH 26.0 L MCHC 30.3 L RDW 22.3 H Plt Count 296 MPV 9.1 Neut % (Auto) 87.0 H Lymph % (Auto) 6.0 L Frontier % (Auto) 7.0 Eos % (Auto) 0.0 Baso % (Auto) 0.0 Neut # 19.0 H Lymph # 1.3 Frontier # 1.5 H Eos # 0.0 Baso # 0.0 Neutrophils % (Manual) 90 H Band Neutrophils % 1 Lymphocytes % (Manual) 5 L Monocytes % (Manual) 4 Eosinophils % (Manual) Metamyelocytes % Platelet Estimate Normal Hypochromasia (manual) Slight Poikilocytosis (manual Slight Anisocytosis (manual) Slight Microcytosis (manual) Tear Drop Cells Slight Ovalocytes Slight [place] Cells Slight Puncture Site Rr pCO2 32 L pO2 91 HCO3 22.1 ABG pH 7.41 ABG Total CO2 21.3 L ABG O2 Saturation 99.0 H ABG Base Excess -3.6 L ABG Hemoglobin 11.2 L ABG Carboxyhemoglobin 2.0 H POC ABG HHb (Measured) 1.0 ABG Methemoglobin 1.2 Oscar Test Pos A-a O2 Difference 83.0 Respiratory Index 0.9 Hgb O2 Saturation 95.8 Mechanical Rate 14 FiO2 30.0 Tidal Volume 500 PEEP 5 Sodium Potassium Chloride Carbon Dioxide Anion Gap BUN Creatinine Est GFR ( Amer) Est GFR (Non-Af Amer) Random Glucose Calcium Phosphorus Magnesium Total Bilirubin AST ALT Alkaline Phosphatase Total Protein Albumin Globulin Albumin/Globulin Ratio Pleural Total Protein <3.0 Pleural LDH 2223 Pleural Glucose 144 06/17/16 06/17/16 06/17/16 06:29 16:47 16:47 WBC 13.8 H RBC 4.11 Hgb 10.7 L Hct 34.9 MCV 85.0 MCH 26.0 L MCHC 30.6 L RDW 22.8 H Plt Count 163 D MPV 8.8 Neut % (Auto) 86.2 H Lymph % (Auto) 4.8 L Frontier % (Auto) 8.2 Eos % (Auto) 0.5 Baso % (Auto) 0.3 Neut # 11.9 H Lymph # 0.7 L Frontier # 1.1 H Eos # 0.1 Baso # 0.0 Neutrophils % (Manual) 84 H Band Neutrophils % Lymphocytes % (Manual) 4 L Monocytes % (Manual) 10 Eosinophils % (Manual) 1 Metamyelocytes % 1 H Platelet Estimate Normal Hypochromasia (manual) Slight Poikilocytosis (manual Slight Anisocytosis (manual) Slight Microcytosis (manual) Slight Tear Drop Cells Ovalocytes Jesus Cells Puncture Site pCO2 pO2 HCO3 ABG pH ABG Total CO2 ABG O2 Saturation ABG Base Excess ABG Hemoglobin ABG Carboxyhemoglobin POC ABG HHb (Measured) ABG Methemoglobin Oscar Test A-a O2 Difference Respiratory Index Hgb O2 Saturation Mechanical Rate FiO2 Tidal Volume PEEP Sodium 143 143 Potassium 4.3 3.7 Chloride 111 H 110 H Carbon Dioxide 18 L 22 Anion Gap 18 14 BUN 50 H 52 H Creatinine 1.6 H 1.6 H Est GFR ( Amer) 38 38 Est GFR (Non-Af Amer) 31 31 Random Glucose 145 H 94 Calcium 6.2 L 6.1 L Phosphorus 4.6 H 4.5 Magnesium 1.8 1.7 Total Bilirubin 1.2 1.1 AST 16 14 ALT 14 16 Alkaline Phosphatase 118 114 Total Protein 5.3 L 5.1 L Albumin 2.3 L 2.1 L Globulin 3.0 2.9 Albumin/Globulin Ratio 0.8 L 0.7 L Pleural Total Protein Pleural LDH Pleural Glucose Assessment/Plan (1) UTI (urinary tract infection) Current Visit: Yes Status: Acute Comment: Broad spectrum antibiotic Fine cultures (2) Dehydration Current Visit: Yes Status: Acute (3) Hypotension Current Visit: Yes Status: Acute Attending/Attestation - Attestation I have personally seen and examined this patient.: Yes I have fully participated in the care of the patient.: Yes I have reviewed all pertinent clinical information: Yes Notes (Text): 06/17/16 19:12 Problems, labs, physical examination discussed during rounds Agree with the current notes.
--- NOTE | 2016-06-17 09:27 | RAD ---
HISTORY: s/p left chest tube COMPARISON: 06/16/2016 FINDINGS: LUNGS: Lines and tubes in stable position. Moderate venous congestion. Left basilar consolidation with small left pleural effusion. Right basilar consolidative changes. Left hilar prominence. Biapical pleural thickening with upper lobe granulomatous changes. Somewhat nodular consolidative changes in the left suprahilar region. PLEURA: As above. CARDIOVASCULAR: Cardiomegaly. OSSEOUS STRUCTURES: No significant abnormalities. VISUALIZED UPPER ABDOMEN: Normal. OTHER FINDINGS: None. IMPRESSION: Lines and tubes in stable position. Moderate venous congestion. Left basilar consolidation with small left pleural effusion. Right basilar consolidative changes. Left hilar prominence. Biapical pleural thickening with upper lobe granulomatous changes. Somewhat nodular consolidative changes in the left suprahilar region.
--- NOTE | 2016-06-17 10:13 | CP.PCM.PN ---
Subjective - Date & Time of Evaluation Date of Evaluation: 06/17/16 Time of Evaluation: 10:10 - Subjective Subjective: Surgery: Dr. Jiménez Patient remains intubated in ICU. Per nursing and ICU attending report, overnight patient's abdomen became more distended and approximately 3 liters of emesis and OGT suction was retrieved. Tube feeds were stopped and have remained held. Patient continues to have diarrhea. Chest tube remains on suction w/ output 80cc/SA fluid in 12hrs. Objective - Vital Signs/Intake and Output Vital Signs (last 24 hours): Temp Pulse Resp BP Pulse Ox 98.6 F 95 H 15 103/45 L 99 06/17/16 00:58 06/17/16 10:00 06/17/16 10:00 06/17/16 09:57 06/17/16 10:00 Intake and Output: 06/17/16 06/17/16 06:59 18:59 Intake Total 1036.8 169.6 Output Total 3760 70 Balance -2723.2 99.6 - Medications Medications: Current Medications Albuterol/Ipratropium (Duoneb 3 Mg/0.5 Mg (3 Ml) Ud) 3 ml INH RQ6 [facility] Last Admin: 06/17/16 07:40 Dose: 3 ml Heparin Sodium (Porcine) (Heparin) 5,000 units SC Q12 [facility] Levetiracetam 500 mg/ Sodium (Chloride) 105 mls @ 420 mls/hr IVPB Q12H [facility] Last Admin: 06/17/16 06:31 Dose: 420 mls/hr Norepinephrine Bitartrate 4 mg (/ Dextrose) 254 mls @ 15.24 mls/hr IV .[id number] PRN; Protocol; 4 MCG/MIN PRN Reason: TITRATE PER MD ORDER Last Titration: 06/17/16 05:10 Dose: 10 mcg/min, 38.1 mls/hr Tigecycline 50 mg/ Sodium (Chloride) 100 mls @ 100 mls/hr IVPB Q12H [facility] Last Admin: 06/17/16 02:16 Dose: 100 mls/hr Dexmedetomidine HCl 200 mcg/ (Sodium Chloride) 50 mls @ 6.51 mls/hr IV TITR PRN ; Protocol; 0.2 MCG/KG/HR PRN Reason: Agitation Last Admin: 06/17/16 01:27 Dose: 0.15 mcg/kg/hr, 4.88 mls/hr Colistimethate Sodium 150 mg/ (Sodium Chloride) 100 mls @ 200 mls/hr IV Q24H [facility] Last Admin: 06/17/16 01:10 Dose: 200 mls/hr Methylprednisolone (Solu-Medrol) 20 mg IVP 0600,1800 [facility] Last Admin: 06/17/16 06:31 Dose: 20 mg Pantoprazole Sodium (Protonix Inj) 40 mg IVP DAILY [facility] Last Admin: 06/16/16 10:04 Dose: 40 mg - Labs Labs: 06/17/16 06:29 06/17/16 06:29 PT 14.4 SECONDS (9.7-12.2) H 06/13/16 06:28 INR 1.3 06/13/16 06:28 APTT 34 SECONDS (21-34) 06/13/16 06:28 - Constitutional Appears: Chronically Ill - ENT Exam ENT Exam: Mucous Membranes Moist Additional comments: ET in place, OGT in place, tube feeds held - Respiratory Exam Additional comments: on mechanical ventilation. Left chest tube in placed. Dressing clean and dry. - Cardiovascular Exam Cardiovascular Exam: REGULAR RHYTHM. absent: Tachycardia - GI/Abdominal Exam GI & Abdominal Exam: Distended, Firm, Hernia Additional comments: moderate anasarca w/ dependent edema on obese abdomen - Neurological Exam Neurological Exam: Alert - Skin Skin Exam: Dry, Warm Additional comments: anasarca Assessment and Plan - Assessment and Plan (Free Text) Assessment: 80F w/ L pleural effusion s/p chest tube insertion POD#4 Plan: -cont chest tube on suction -daily CXR -monitor output -cont ICU care -further recs per Dr. Tino Rivera PGY1
[2016-06-17 11:50] LABS: LYMPH # 1.3 K/uL (1.0-4.3); MONO # 1.5 K/uL (0.0-0.8)
[2016-06-17 11:54] LABS: NEUTROPHIL 90 % (50-75); TOTAL CELLS COUNTED 100
[2016-06-17] MEDS: Lactated Ringer's 1,000 ML IV SCH ×2 (12:03→21:45)
--- NOTE | 2016-06-17 13:54 | RAD ---
HISTORY: r/o SBO COMPARISON: No prior. FINDINGS: BOWEL: Limited exam given the small field of views in these multiple images. Piecemeal, there are dilated small bowel loops mostly a centrally in the central to left side of the abdomen. Some gas within a mildly distended right hip flexure loop is apparent further haustral markings here. Prominent stool suggested in the rectosigmoid colon BONES: Limited visualization enhance assessment OTHER FINDINGS: An NG tube tip in the stomach is suggested IMPRESSION: Multiple dilated small bowel loops concerning for a high-grade partial and or intermittent small bowel obstruction. Some colonic gas within the right hepatic flexure is apparent. Consider CT of the abdomen and pelvis for more sensitive evaluation. No upright view to assess for any free air
--- NOTE | 2016-06-17 14:01 | VASCLAB ---
PROCEDURE: Lower Extremity Venous Duplex Exam. HISTORY: Leg pain PRIORS: None. TECHNIQUE: Bilateral common femoral, femoral, popliteal and posterior tibial, peroneal and great saphenous veins were evaluated. Flow was assessed with color Doppler, compressibility, assessment of phasic flow and augmentation response. Report prepared by MARILUZ Morales, RVT FINDINGS: RIGHT: 1. Common Femoral Vein: 1.1. Compressibility - Fully compressible: Thrombus - None : Flow - Phasic: Augmentation -Normal: Reflux - None. 2. Femoral Vein: 2.1. Compressibility - Fully compressible: Thrombus - None : Flow - Phasic: Augmentation -Normal: Reflux - None. 3. Popliteal Vein: 3.1. Compressibility - Fully compressible: Thrombus - None : Flow - Phasic: Augmentation -Normal: Reflux - Severe. 4. Posterior Tibial Vein: 4.1. Compressibility - Fully compressible: Thrombus - None: Flow - Phasic: Augmentation -Normal: Reflux - None. 5. Peroneal Vein: 5.1. Compressibility - Fully compressible: Thrombus - None: Flow - Phasic: Augmentation -Normal: Reflux - None. 6. Great Saphenous Vein: 6.1. Compressibility - Fully compressible: Thrombus - None: Flow - Phasic: Augmentation - Normal: Reflux - None. LEFT: 1. Common Femoral Vein: 1.1. Compressibility - Fully compressible: Thrombus - None: Flow - Phasic: Augmentation -Normal: Reflux - None. 2. Femoral Vein: 2.1. Compressibility - Fully compressible: Thrombus - None: Flow - Phasic: Augmentation -Normal: Reflux - None. 3. Popliteal Vein: 3.1. Compressibility - Fully compressible: Thrombus - None : Flow - Phasic: Augmentation -Normal: Reflux - None. 4. Posterior Tibial Vein: 4.1. Compressibility - Fully compressible: Thrombus - None: Flow - Phasic: Augmentation -Normal: Reflux - None. 5. Peroneal Vein: 5.1. Compressibility - Fully compressible: Thrombus - None: Flow - Phasic: Augmentation -Normal: Reflux - None. 6. Great Saphenous Vein: 6.1. Compressibility - Fully compressible: Thrombus - None: Flow - Phasic: Augmentation - Normal: Reflux - None. OTHER FINDINGS: Right: Severe valvular incompetence of the right popliteal vein. Left: None significant. IMPRESSION: Right: No evidence of deep or superficial vein thrombosis of the right lower extremity. Left: No evidence of deep or superficial vein thrombosis of the left lower extremity. Normal valve function noted of the left side.
[2016-06-17] MEDS ORDERED: metroNIDAZOLE IV 500 mg/100 ml 500 MG/100 ML BAG IVPB SCH (15:00)
[2016-06-17 16:55] LABS: BASO % 0.3 % (0.0-2.0); EOS # 0.1 K/uL (0.0-0.7); EOS % 0.5 % (0.0-4.0); HEMATOCRIT 34.9 % (34.0-47.0); LYMPH # 0.7 K/uL (1.0-4.3); LYMPH % 4.8 % (20.0-40.0); MEAN CORPUSCULAR HGB CONC 30.6 g/dL (33.0-37.0); MEAN PLATELET VOLUME 8.8 fL (7.2-11.7); MONO # 1.1 K/uL (0.0-0.8); MONO % 8.2 % (0.0-10.0); NRBC % 0.1 % (0.0-2.0); PLATELET COUNT 163 K/uL (130-400); RED CELL DISTRIBUTION WIDTH 22.8 % (11.5-14.5); WHITE BLOOD COUNT 13.8 K/uL (4.8-10.8)
[2016-06-17 17:04] LABS: POTASSIUM 3.7 mmol/L (3.6-5.2)
[2016-06-17 17:06] LABS: ALB/GLOB RATIO 0.7 (1.0-2.1); BILIRUBIN,TOTAL 1.1 mg/dL (0.2-1.3); PHOSPHOROUS 4.5 mg/dL (2.5-4.5); TOTAL PROTEIN 5.1 g/dL (6.3-8.3)
[2016-06-17 17:07] LABS: CALCIUM 6.1 mg/dl (8.6-10.4); MAGNESIUM 1.7 mg/dL (1.6-2.3)
--- NOTE | 2016-06-17 17:08 | CP.PCM.PN ---
Subjective - Date & Time of Evaluation Date of Evaluation: 06/17/16 Time of Evaluation: 15:20 - Subjective Subjective: Patient seen and examined in the intensive care unit. The patient was intubated and not tolerating CPAP Patient is awake and responsive afebrile Chest tube in place and draining fluid Feeding was stopped because of vomiting and abdominal distention Objective - Vital Signs/Intake and Output Vital Signs (last 24 hours): Temp Pulse Resp BP Pulse Ox 98.6 F 95 H 14 90/39 L 99 06/17/16 00:58 06/17/16 16:21 06/17/16 16:21 06/17/16 16:21 06/17/16 16:21 Intake and Output: 06/17/16 06/17/16 06:59 18:59 Intake Total 1036.8 1132.1 Output Total 3760 1340 Balance -2723.2 -207.9 - Medications Medications: Current Medications Albuterol/Ipratropium (Duoneb 3 Mg/0.5 Mg (3 Ml) Ud) 3 ml INH RQ6 [facility] Last Admin: 06/17/16 13:34 Dose: 3 ml Heparin Sodium (Porcine) (Heparin) 5,000 units SC Q12 [facility] Last Admin: 06/17/16 10:44 Dose: 5,000 units Levetiracetam 500 mg/ Sodium (Chloride) 105 mls @ 420 mls/hr IVPB Q12H [facility] Last Admin: 06/17/16 06:31 Dose: 420 mls/hr Norepinephrine Bitartrate 4 mg (/ Dextrose) 254 mls @ 15.24 mls/hr IV .[id number] PRN; Protocol; 4 MCG/MIN PRN Reason: TITRATE PER MD ORDER Last Admin: 06/17/16 13:19 Dose: 12 mcg/min, 45.72 mls/hr Tigecycline 50 mg/ Sodium (Chloride) 100 mls @ 100 mls/hr IVPB Q12H [facility] Last Admin: 06/17/16 13:07 Dose: 100 mls/hr Dexmedetomidine HCl 200 mcg/ (Sodium Chloride) 50 mls @ 6.51 mls/hr IV TITR PRN ; Protocol; 0.2 MCG/KG/HR PRN Reason: Agitation Last Admin: 06/17/16 01:27 Dose: 0.15 mcg/kg/hr, 4.88 mls/hr Colistimethate Sodium 150 mg/ (Sodium Chloride) 100 mls @ 200 mls/hr IV Q24H [facility] Last Admin: 06/17/16 01:10 Dose: 200 mls/hr Lactated Ringer's (Lactated Ringer's) 1,000 mls @ 100 mls/hr IV .Q10H [facility] Last Admin: 06/17/16 12:03 Dose: 100 mls/hr Metronidazole (Flagyl) 500 mg in 100 mls @ 100 mls/hr IVPB Q8 [facility] Last Admin: 06/17/16 16:20 Dose: 100 mls/hr Methylprednisolone (Solu-Medrol) 20 mg IVP 0600,1800 [facility] Last Admin: 06/17/16 06:31 Dose: 20 mg Pantoprazole Sodium (Protonix Inj) 40 mg IVP DAILY [facility] Last Admin: 06/17/16 12:03 Dose: 40 mg - Labs Labs: 06/17/16 16:47 06/17/16 16:47 PT 14.4 SECONDS (9.7-12.2) H 06/13/16 06:28 INR 1.3 06/13/16 06:28 APTT 34 SECONDS (21-34) 06/13/16 06:28 - Head Exam Head Exam: ATRAUMATIC, NORMOCEPHALIC - ENT Exam ENT Exam: Mucous Membranes Moist - Neck Exam Neck Exam: Normal Inspection - Respiratory Exam Respiratory Exam: Clear to Ausculation Bilateral - Cardiovascular Exam Cardiovascular Exam: REGULAR RHYTHM - GI/Abdominal Exam GI & Abdominal Exam: Soft, Normal Bowel Sounds - Extremities Exam Extremities Exam: Pedal Edema Assessment and Plan (1) Acute respiratory failure Assessment & Plan: Continue ventilator support and wean as tolerated Chest tube in place still draining minimal amount of fluid antibiotics as per infectious disease Status: Acute (2) Pleural effusion Status: Acute (3) UTI (urinary tract infection) Status: Acute
[2016-06-17 18:33] LABS: EOSINOPHIL 1 % (0-4); METAMYELOCYTE 1 % (0-0); NEUTROPHIL 84 % (50-75); TOTAL CELLS COUNTED 100
[2016-06-17 18:52] LABS: GLUCOSE PLEURAL FLUID 144 mg/dL; LDH PLEURAL FLUID 2223 U/L
[2016-06-17 20:48] LABS: AMYLASE PLEURAL FLUID 11 U/L
--- NOTE | 2016-06-17 22:05 | CP.PCM.PN ---
Subjective - Date & Time of Evaluation Date of Evaluation: 06/17/16 Time of Evaluation: 22:05 - Subjective Subjective: EVENTS NOTED . afebrile ON VENTILATOR UNABLE TO WEAN NGT - BILIOUS DRAINGE. +VE DIARRHOEA S/P LT. CHEST TUBE -350ML Serosanguineous FLUID OBTAINED 06/13/16 bronchial washings +ve Acinetobacter Baumanni S- Tygacil, colistin R- pRIMAXIN. s/p RT IJ CATHETER PLACED 06/11/16 s/p thoracentesis 06/09 600cc serosanguinous fluid obtained. ROS. HEENT : N.head tilted to the left Resp : No cough, wheezing ,pleuritic CP ,or hemoptysis LT. CT IN PLACE. Cardio : TACHYCARDIC GI : No abd.pain, n/v ,diarrhea or GI bleeding . STAFF PSYCHOLOGIST : No headache, vertigo, focal deficit. Musculoskel : No joint swelling , Derm : No rash Psych : Normal affect. Ext : No swelling ,calf pain PE. Pt. is alert awake in no distress. V.S As noted in the chart Head ,ear nose,throat and eyes : Normal. Neck : Supple with normal carotids. Lungs: RHONCHI B/L +VE LT CHEST TUBE IN PLACE Heart : S1 & S2 normal with S4. No murmur.TACHYCARDIC Abd : Soft , DISTENDED BS HYPOACTIVE. Neuro : Moves all ext. with no localized deficit. Ext : + EDEMA with intact pulses.Non tender calves Derm : No rashes or decubitus ulcer. LABS/RADIOLOGY: LABS WBC 21.6 HIGH pleural fluid 06/16/16 FINDINGS NOTED -POST TRAUMATIC-HGIC,T.FL <3.0, GLUCOSE N - LDH HIGH urine culture repeat negative growth bronchial washings +ve Acinetobacter Baumanni SPUTUM CULTURE+VE ACINETOBACTER BOUMANNI S - tYGACIL bLOOD CULTURES 06/13/16 -VE . BLOOD CULTURES 06/06/16 NEGATIVE .. URINE CULTURE +VE PROTEUS MIRABILIS -MDR chest x-ray . ET ( NG) ,RT. IJ, +VE LT. CT, SMALL LEFT>RT PLEURAL EFFUSION WITH BIBASILAR ATELECTASIS/EFFUSIONS. CREAT 1.6/BUN 50 ASSESSMENT/PLAN : IMPRESSION; -RESPIRATORY FAILURE/ VAP/HAP -[id number] -S/P LEFT-SIDED THORACENTESIS/ chest tube 06/13 - SEPSIS- SYNDROME /HYPOTENSION - [id number]-RESISTANT PROTEUS MIRABILIS -CHF - ?/SBO VS ILEUS -DM. -HX MANISH- MASTOIDITIS/CHOLESTEATOMA. PLAN; DC IV VANCOMYCIN.06/13 ON IV tYGACIL 100 MG LOADING DOSE FOLLOWED BY 50 EVERY 12 HOURLY.06/14 ON IV Colistin 150 mg every 24 hourly. 06/16/16 NOTED FLAGYL 500MG IV Q8HRLY ADDED 06/17/16 mONITOR RENAL FUNCTIONS CLOSELY. pulmonary toilet. F/U PLEURAL FLUID /CULTURES. Objective - Vital Signs/Intake and Output Vital Signs (last 24 hours): Temp Pulse Resp BP Pulse Ox 97.6 F 111 H 13 97/43 L 89 L 06/17/16 16:00 06/17/16 19:00 06/17/16 19:00 06/17/16 18:21 06/17/16 18:00 Intake and Output: 06/17/16 06/18/16 18:59 06:59 Intake Total 1626.1 137.5 Output Total 1525 700 Balance 101.1 -562.5 - Medications Medications: Current Medications Albuterol/Ipratropium (Duoneb 3 Mg/0.5 Mg (3 Ml) Ud) 3 ml INH RQ6 [facility] Last Admin: 06/17/16 20:36 Dose: 3 ml Heparin Sodium (Porcine) (Heparin) 5,000 units SC Q12 [facility] Last Admin: 06/17/16 21:47 Dose: 5,000 units Levetiracetam 500 mg/ Sodium (Chloride) 105 mls @ 420 mls/hr IVPB Q12H [facility] Last Admin: 06/17/16 17:59 Dose: 420 mls/hr Norepinephrine Bitartrate 4 mg (/ Dextrose) 254 mls @ 15.24 mls/hr IV .[id number] PRN; Protocol; 4 MCG/MIN PRN Reason: TITRATE PER MD ORDER Last Titration: 06/17/16 18:30 Dose: 9.84 mcg/min, 37.49 mls/hr Tigecycline 50 mg/ Sodium (Chloride) 100 mls @ 100 mls/hr IVPB Q12H [facility] Last Admin: 06/17/16 13:07 Dose: 100 mls/hr Dexmedetomidine HCl 200 mcg/ (Sodium Chloride) 50 mls @ 6.51 mls/hr IV TITR PRN ; Protocol; 0.2 MCG/KG/HR PRN Reason: Agitation Last Admin: 06/17/16 01:27 Dose: 0.15 mcg/kg/hr, 4.88 mls/hr Colistimethate Sodium 150 mg/ (Sodium Chloride) 100 mls @ 200 mls/hr IV Q24H [facility] Last Admin: 06/17/16 01:10 Dose: 200 mls/hr Lactated Ringer's (Lactated Ringer's) 1,000 mls @ 100 mls/hr IV .Q10H [facility] Last Admin: 06/17/16 12:03 Dose: 100 mls/hr Metronidazole (Flagyl) 500 mg in 100 mls @ 100 mls/hr IVPB Q8H [facility] Methylprednisolone (Solu-Medrol) 20 mg IVP 0600,1800 [facility] Last Admin: 06/17/16 17:58 Dose: 20 mg Pantoprazole Sodium (Protonix Inj) 40 mg IVP DAILY [facility] Last Admin: 06/17/16 12:03 Dose: 40 mg - Labs Labs: 06/17/16 16:47 06/17/16 16:47 PT 14.4 SECONDS (9.7-12.2) H 06/13/16 06:28 INR 1.3 06/13/16 06:28 APTT 34 SECONDS (21-34) 06/13/16 06:28 Assessment and Plan (1) UTI (urinary tract infection) Status: Acute (2) Dehydration Status: Acute (3) Acute respiratory failure Status: Acute (4) COPD (chronic obstructive pulmonary disease) Status: Acute (5) Hypotension Status: Acute (6) Acute onset sepsis Status: Acute
[2016-06-18] MEDS: metroNIDAZOLE IV 500 mg/100 ml 500 MG/100 ML BAG IVPB SCH ×3 (00:39→16:39)
[2016-06-18] MEDS: Albuterol-Ipratrop 3 mg / 0.5 (3 ml) UD INH SCH ×4 (01:06→19:13)
[2016-06-18] MEDS: Lactated Ringer's 1,000 ML IV SCH ×3 (02:15→16:38)
[2016-06-18 04:25] LABS: ABG ALLEN TEST POS; ABG MECHANICAL RATE 14; ATERIAL BLOOD GAS PEEP 5; CARBOXYHEMOGLOBIN 2.1 % (0.5-1.5); DRAW SITE RR; HHB 0.6 % (0.0-5.0); METHEMOGLOBIN 1.3 % (0.0-3.0)
[2016-06-18] MEDS: MethylPREDNISolone 40 mg Vial IVP SCH ×2 (06:20→18:00)
[2016-06-18] MEDS: levETIRAcetam 500 MG in Sodium Chloride 0.9% 100 ML IVPB SCH ×2 (06:20→18:00)
[2016-06-18 06:40] LABS: MEAN CORPUSCULAR HEMOGLOBIN 26.2 pg (27.0-31.0)
[2016-06-18 06:59] LABS: POTASSIUM 3.4 mmol/L (3.6-5.2)
[2016-06-18 07:01] LABS: ALB/GLOB RATIO 0.8 (1.0-2.1); BILIRUBIN,TOTAL 1.1 mg/dL (0.2-1.3); TOTAL PROTEIN 4.6 g/dL (6.3-8.3)
[2016-06-18 07:02] LABS: MAGNESIUM 1.6 mg/dL (1.6-2.3); PHOSPHOROUS 4.5 mg/dL (2.5-4.5)
[2016-06-18 07:13] LABS: HEMATOCRIT 33.3 % (34.0-47.0); MEAN CELL VOLUME 85.3 fL (81.0-99.0); MEAN CORPUSCULAR HGB CONC 30.8 g/dL (33.0-37.0); MEAN PLATELET VOLUME 8.5 fL (7.2-11.7); PLATELET COUNT 173 K/uL (130-400); RED CELL DISTRIBUTION WIDTH 22.5 % (11.5-14.5)
[2016-06-18 07:15] LABS: CALCIUM 5.8 mg/dl (8.6-10.4)
--- NOTE | 2016-06-18 09:06 | RAD ---
HISTORY: s/p left chest tube COMPARISON: 06/17/2016 FINDINGS: LUNGS: Lines and tubes in stable position. Moderate left and trace right pleural effusion. Right hilar prominence. Consolidative changes in the left mid to lower lung zone. Biapical pleural thickening with upper lobe granulomatous changes. PLEURA: As above. CARDIOVASCULAR: Cardiomegaly. OSSEOUS STRUCTURES: Degenerative changes in the spine. VISUALIZED UPPER ABDOMEN: Normal. OTHER FINDINGS: None. IMPRESSION: No significant interval change.
[2016-06-18 09:30] LABS: LYMPH # 0.1 K/uL (1.0-4.3); MONO # 0.1 K/uL (0.0-0.8)
--- NOTE | 2016-06-18 09:30 | CP.PCM.PN ---
Subjective - Date & Time of Evaluation Date of Evaluation: 06/18/16 Time of Evaluation: 07:00 - Subjective Subjective: THORACIC SURGERY PROGRESS NOTE FOR DR. FRIED Patient seen and examined at bedside in the ICU. She remains intubated, on Peep 5, FIO2 30%. She is alert and follows commands. She continues to have high volume output from OG tube. She is on pressors, 8mcg of Norepinephrine. Chest tube remains on suction, with 320cc serosanguinous drainage over past 24 hours. Objective - Vital Signs/Intake and Output Vital Signs (last 24 hours): Temp Pulse Resp BP Pulse Ox 97.8 F 106 H 13 102/45 L 99 06/18/16 08:00 06/18/16 08:00 06/18/16 08:00 06/18/16 07:51 06/18/16 08:00 Intake and Output: 06/18/16 06/18/16 06:59 18:59 Intake Total 1946.5 260 Output Total 2635 65 Balance -688.5 195 - Medications Medications: Current Medications Albuterol/Ipratropium (Duoneb 3 Mg/0.5 Mg (3 Ml) Ud) 3 ml INH RQ6 [facility] Last Admin: 06/18/16 07:34 Dose: 3 ml Calcium/Vitamin D (Oyster Shell Calcium/Vitamin D 500 Mg-200 Iu) 1 tab PO DAILY [facility] Heparin Sodium (Porcine) (Heparin) 5,000 units SC Q12 [facility] Last Admin: 06/17/16 21:47 Dose: 5,000 units Levetiracetam 500 mg/ Sodium (Chloride) 105 mls @ 420 mls/hr IVPB Q12H [facility] Last Admin: 06/18/16 06:20 Dose: 420 mls/hr Norepinephrine Bitartrate 4 mg (/ Dextrose) 254 mls @ 15.24 mls/hr IV .[id number] PRN; Protocol; 4 MCG/MIN PRN Reason: TITRATE PER MD ORDER Last Admin: 06/18/16 06:25 Dose: 8 mcg/min, 30.48 mls/hr Tigecycline 50 mg/ Sodium (Chloride) 100 mls @ 100 mls/hr IVPB Q12H [facility] Last Admin: 06/18/16 02:15 Dose: 100 mls/hr Dexmedetomidine HCl 200 mcg/ (Sodium Chloride) 50 mls @ 6.51 mls/hr IV TITR PRN ; Protocol; 0.2 MCG/KG/HR PRN Reason: Agitation Last Admin: 06/17/16 01:27 Dose: 0.15 mcg/kg/hr, 4.88 mls/hr Colistimethate Sodium 150 mg/ (Sodium Chloride) 100 mls @ 200 mls/hr IV Q24H [facility] Last Admin: 06/17/16 23:33 Dose: 200 mls/hr Lactated Ringer's (Lactated Ringer's) 1,000 mls @ 100 mls/hr IV .Q10H [facility] Last Admin: 06/18/16 02:15 Dose: 100 mls/hr Metronidazole (Flagyl) 500 mg in 100 mls @ 100 mls/hr IVPB Q8H [facility] Last Admin: 06/18/16 00:39 Dose: 100 mls/hr Methylprednisolone (Solu-Medrol) 20 mg IVP 0600,1800 [facility] Last Admin: 06/18/16 06:20 Dose: 20 mg Pantoprazole Sodium (Protonix Inj) 40 mg IVP DAILY [facility] Last Admin: 06/17/16 12:03 Dose: 40 mg Potassium Chloride (Potassium Chloride Oral Soln) 40 meq PO ONCE ONE Stop: 06/18/16 10:01 - Labs Labs: 06/18/16 06:24 06/18/16 06:27 PT 14.4 SECONDS (9.7-12.2) H 06/13/16 06:28 INR 1.3 06/13/16 06:28 APTT 34 SECONDS (21-34) 06/13/16 06:28 - Constitutional Appears: Chronically Ill - ENT Exam Additional comments: ETT, OG tube in place - Respiratory Exam Additional comments: On mechanical ventilation, PEEP 5, FIO2 30% Left chest tube in place on suction, 320cc output over past 24 hours, dressing clean/dry/intact - Cardiovascular Exam Cardiovascular Exam: Tachycardia - Neurological Exam Neurological Exam: Alert, Awake - Skin Additional comments: anasarca Assessment and Plan - Assessment and Plan (Free Text) Assessment: 80yo F with left pleural effusion s/p left chest tube insertion via mini thoracotomy POD#5 - Continue chest tube on suction - Left chest tube with 320cc drainage over past 24 hours - Daily CXR, continues to have moderate left and trace right pleural effusion, no significant interval change from prior CXR yesterday - Dressing changes PRN - Discussed plan with Dr. Tino Euceda PGY-2
[2016-06-18 09:32] LABS: NEUTROPHIL 89 % (50-75); TOTAL CELLS COUNTED 100
[2016-06-18] MEDS: Calcium-Vit D 500 mg-200 Units Tab UD PO SCH (09:55)
[2016-06-18] MEDS ORDERED: Potassium Chloride 20 mEq/15 ml LIQ UD PO ONE (10:00)
--- NOTE | 2016-06-18 10:30 | CP.CCUPN ---
<Nancy Morocho - Last Filed: 06/18/16 10:27> CCU Subjective - Physician Review Subjective (Free Text): Patient was seen and examined at bedside. Intubated PRVC settings: RR14, FiO2 30 %, PEEP 5, Tvolume 500, on 8 mcgs of levophed. Continued on Solumedrol 20mg IVP BID Patient was unable to tolerate being weaned this weekend, failed two CPAP trials. Bronchial washings showed Achinetobacter Baumannii patient is currently on Coly-Mycin and Tygacil as per Dr. Cantrell. Patient had bilious output of 5000cc past [address] Abdomen and Pelvis was ordered but unable to be performed due to patient's body habitus. Abdominal xray was ordered showed dilated loops of bowel. Patient started on Flagyl, stool studies ordered. Chest tube: 320cc / 24hrs Surgery consulted for trach and for evaluation of ileus/ sbo. CCU Objective - Vital Signs / Intake & Output Vital Signs (Last 4 hours): Vital Signs Temp Pulse Resp BP Pulse Ox 06/18/16 10:00 136 H 10 L 95 06/18/16 09:50 102 H 14 112/46 L 94 L 06/18/16 09:00 90 14 100 06/18/16 08:51 98 H 13 98/50 L 95 06/18/16 08:00 97.8 F 106 H 13 99 06/18/16 07:51 102 H 12 102/45 L 100 06/18/16 07:08 103 H 14 105/49 L 100 06/18/16 06:51 99/46 L Intake and Output (Last 8hrs): Intake & Output 06/17/16 06/18/16 06/18/16 22:59 06:59 14:59 Intake Total 1334.0 1396.5 520 Output Total 1070 1840 100 Balance 264.0 -443.5 420 Weight 284 lb 13.396 oz Intake: IV 204 304 Intake, IV Amount 1130.0 1092.5 520 Right Distal Port 330.0 292.5 120 Internal Jugular right medial 800 800 400 Oral 0 0 0 Output: Chest Tube Drainage 120 200 Left Lateral Chest 120 200 Gastric Amount 700 1300 Stomach 700 1300 Urine 250 340 100 Urethral (Gonzalez) 250 340 100 Other: # Bowel Movements 0 0 0 - Physical Exam Head: Positive for: Atraumatic, Normocephalic Pupils: Positive for: PERRL Extroacular Muscles: Positive for: EOMI Conjunctiva: Positive for: Normal Mouth: Positive for: Moist Mucous Membranes Respiratory/Chest: Positive for: Decreased Breath Sounds, Other (INTUBATED ) Cardiovascular: Positive for: Tachycardic Upper Extremity: Positive for: Normal Inspection, NORMAL PULSES. Negative for: Cyanosis, Edema Lower Extremity: Positive for: Normal Inspection, NORMAL PULSES. Negative for: Edema, CALF TENDERNESS Neurological: Positive for: GCS=15, CN II-XII Intact Skin: Positive for: Warm, Dry Psychiatric: Positive for: Alert, Oriented x 3 - Medications Active Medications: Active Medications Generic Name Dose Route Start Last Admin Trade Name Freq PRN Reason Stop Dose Admin Albuterol/Ipratropium 3 ml 06/11/16 10:45 06/18/16 07:34 Duoneb 3 Mg/0.5 Mg (3 Ml) Ud INH 3 ml RQ6 SHARIF Administration Calcium/Vitamin D 1 tab 06/18/16 10:00 06/18/16 09:55 Oyster Shell Calcium/Vitamin D 500 Mg-200 Iu PO 1 tab DAILY SHARIF Administration Heparin Sodium (Porcine) 5,000 units 06/17/16 10:00 06/18/16 09:55 Heparin SC 5,000 units Q12 SHARIF Administration Levetiracetam 500 mg/ Sodium 105 mls @ 420 mls/hr 06/07/16 18:30 06/18/16 06: 20 Chloride IVPB 420 mls/hr Q12H SHARIF Administration Norepinephrine Bitartrate 4 mg 254 mls @ 15.24 mls/hr 06/11/16 16:25 06:25 / Dextrose IV 8 mcg/min .[id number] PRN 30.48 mls/hr TITRATE PER MD ORDER Administration Protocol 4 MCG/MIN Tigecycline 50 mg/ Sodium 100 mls @ 100 mls/hr 06/15/16 02:00 06/18/16 02:15 Chloride IVPB 100 mls/hr Q12H SHARIF Administration Dexmedetomidine HCl 200 mcg/ 50 mls @ 6.51 mls/hr 06/15/16 22:00 06/17/16 01: 27 Sodium Chloride IV 0.15 mcg/kg/hr TITR PRN 4.88 mls/hr Agitation Administration Protocol 0.2 MCG/KG/HR Colistimethate Sodium 150 mg/ 100 mls @ 200 mls/hr 06/17/16 00:00 06/17/16 23 :33 Sodium Chloride IV 200 mls/hr Q24H SHARIF Administration Lactated Ringer's 1,000 mls @ 100 mls/hr 06/17/16 11:45 06/18/16 02:15 Lactated Ringer's IV 100 mls/hr .Q10H SHARIF Administration Metronidazole 500 mg in 100 mls @ 100 mls/hr 06/18/16 00:00 06/18/16 09:56 Flagyl IVPB 100 mls/hr Q8H SHARIF Administration Methylprednisolone 20 mg 06/15/16 18:00 06/18/16 06:20 Solu-Medrol IVP 20 mg 0600,1800 SHARIF Administration Pantoprazole Sodium 40 mg 06/05/16 10:00 06/18/16 09:55 Protonix Inj IVP 40 mg DAILY SHARIF Administration - Patient Studies Lab Studies: Microbiology Studies 06/16/16 22:40 Blood Culture - Preliminary Blood-Thru Central Line NO GROWTH AFTER 24 HOURS 06/16/16 23:45 Blood Culture - Preliminary Blood-Thru Central Line NO GROWTH AFTER 24 HOURS Lab Studies 06/18/16 06/18/16 06/18/16 Range/Units 06:27 06:24 04:15 WBC 16.0 H (4.8-10.8) K/uL RBC 3.90 (3.80-5.20) Mil/uL Hgb 10.2 L (11.0-16.0) g/dL Hct 33.3 L (34.0-47.0) % MCV 85.3 (81.0-99.0) fL MCH 26.2 L (27.0-31.0) pg MCHC 30.8 L (33.0-37.0) g/dL RDW 22.5 H (11.5-14.5) % Plt Count 173 (130-400) K/uL MPV 8.5 (7.2-11.7) fL Neut % (Auto) 91.0 H (50.0-75.0) % Lymph % (Auto) 3.0 L (20.0-40.0) % [place] % (Auto) 5.0 (0.0-10.0) % Eos % (Auto) 1.0 (0.0-4.0) % Baso % (Auto) 0.0 (0.0-2.0) % Neut # 1.5 L (1.8-7.0) K/uL Lymph # 0.1 L (1.0-4.3) K/uL [place] # 0.1 (0.0-0.8) K/uL Eos # 0.0 (0.0-0.7) K/uL Baso # 0.0 (0.0-0.2) K/uL Neutrophils % (Manual) 89 H (50-75) % Band Neutrophils % 2 (0-2) % Lymphocytes % (Manual) 6 L (20-40) % Monocytes % (Manual) 3 (0-10) % Eosinophils % (Manual) (0-4) % Metamyelocytes % (0-0) % Platelet Estimate Normal (NORMAL) Hypochromasia (manual) Slight Poikilocytosis (manual Slight Anisocytosis (manual) Slight Microcytosis (manual) Slight Macrocytosis (manual) Slight Tear Drop Cells Slight Ovalocytes [place] Cells Slight Puncture Site Rr pCO2 36 (35-45) mm/Hg pO2 111 H (80-100) mm/Hg HCO3 22.7 (21-28) mmol/L ABG pH 7.39 (7.35-7.45) ABG Total CO2 22.9 (22-28) mmol/L ABG O2 Saturation 99.4 H (95-98) % ABG Base Excess -2.8 L (-2.0-3.0) mmol/L ABG Hemoglobin 10.5 L (11.7-17.4) g/dL ABG Carboxyhemoglobin 2.1 H (0.5-1.5) % POC ABG HHb (Measured) 0.6 (0.0-5.0) % ABG Methemoglobin 1.3 (0.0-3.0) % Oscar Test Pos A-a O2 Difference 58.0 mm/Hg Respiratory Index 0.5 Hgb O2 Saturation 96.0 (95.0-98.0) % Mechanical Rate 14 FiO2 30.0 % Tidal Volume 500 PEEP 5 Sodium 142 (132-148) mmol/L Potassium 3.4 L (3.6-5.2) mmol/L Chloride 110 H (98-107) mmol/L Carbon Dioxide 22 (22-30) mmol/L Anion Gap 13 (10-20) BUN 50 H (7-17) mg/dL Creatinine 1.5 H (0.7-1.2) MG/DL Est GFR ( Amer) 41 Est GFR (Non-Af Amer) 33 Random Glucose 95 (65-105) mg/dL Calcium 5.8 L* (8.6-10.4) mg/dl Phosphorus 4.5 (2.5-4.5) mg/dL Magnesium 1.6 (1.6-2.3) mg/dL Total Bilirubin 1.1 (0.2-1.3) mg/dL AST 14 (14-36) U/L ALT 16 (9-52) U/L Alkaline Phosphatase 105 (38-126) U/L Total Protein 4.6 L (6.3-8.3) g/dL Albumin 2.0 L (3.5-5.0) g/dL Globulin 2.5 (2.2-3.9) gm/dL Albumin/Globulin Ratio 0.8 L (1.0-2.1) Pleural Total Protein g/dL Pleural LDH U/L Pleural Glucose mg/dL Pleural Amylase U/L 06/17/16 06/17/16 06/17/16 Range/Units 16:47 16:47 06:29 WBC 13.8 H (4.8-10.8) K/uL RBC 4.11 (3.80-5.20) Mil/uL Hgb 10.7 L (11.0-16.0) g/dL Hct 34.9 (34.0-47.0) % MCV 85.0 (81.0-99.0) fL MCH 26.0 L (27.0-31.0) pg MCHC 30.6 L (33.0-37.0) g/dL RDW 22.8 H (11.5-14.5) % Plt Count 163 D (130-400) K/uL MPV 8.8 (7.2-11.7) fL Neut % (Auto) 86.2 H 87.0 H (50.0-75.0) % Lymph % (Auto) 4.8 L 6.0 L (20.0-40.0) % [place] % (Auto) 8.2 7.0 (0.0-10.0) % Eos % (Auto) 0.5 0.0 (0.0-4.0) % Baso % (Auto) 0.3 0.0 (0.0-2.0) % Neut # 11.9 H 19.0 H (1.8-7.0) K/uL Lymph # 0.7 L 1.3 (1.0-4.3) K/uL [place] # 1.1 H 1.5 H (0.0-0.8) K/uL Eos # 0.1 0.0 (0.0-0.7) K/uL Baso # 0.0 0.0 (0.0-0.2) K/uL Neutrophils % (Manual) 84 H 90 H (50-75) % Band Neutrophils % 1 (0-2) % Lymphocytes % (Manual) 4 L 5 L (20-40) % Monocytes % (Manual) 10 4 (0-10) % Eosinophils % (Manual) 1 (0-4) % Metamyelocytes % 1 H (0-0) % Platelet Estimate Normal Normal (NORMAL) Hypochromasia (manual) Slight Slight Poikilocytosis (manual Slight Slight Anisocytosis (manual) Slight Slight Microcytosis (manual) Slight Macrocytosis (manual) Tear Drop Cells Slight Ovalocytes Slight [place] Cells Slight Puncture Site pCO2 (35-45) mm/Hg pO2 (80-100) mm/Hg HCO3 (21-28) mmol/L ABG pH (7.35-7.45) ABG Total CO2 (22-28) mmol/L ABG O2 Saturation (95-98) % ABG Base Excess (-2.0-3.0) mmol/L ABG Hemoglobin (11.7-17.4) g/dL ABG Carboxyhemoglobin (0.5-1.5) % POC ABG HHb (Measured) (0.0-5.0) % ABG Methemoglobin (0.0-3.0) % Oscar Test A-a O2 Difference mm/Hg Respiratory Index Hgb O2 Saturation (95.0-98.0) % Mechanical Rate FiO2 % Tidal Volume PEEP Sodium 143 (132-148) mmol/L Potassium 3.7 (3.6-5.2) mmol/L Chloride 110 H (98-107) mmol/L Carbon Dioxide 22 (22-30) mmol/L Anion Gap 14 (10-20) BUN 52 H (7-17) mg/dL Creatinine 1.6 H (0.7-1.2) MG/DL Est GFR ( Amer) 38 Est GFR (Non-Af Amer) 31 Random Glucose 94 (65-105) mg/dL Calcium 6.1 L (8.6-10.4) mg/dl Phosphorus 4.5 (2.5-4.5) mg/dL Magnesium 1.7 (1.6-2.3) mg/dL Total Bilirubin 1.1 (0.2-1.3) mg/dL AST 14 (14-36) U/L ALT 16 (9-52) U/L Alkaline Phosphatase 114 (38-126) U/L Total Protein 5.1 L (6.3-8.3) g/dL Albumin 2.1 L (3.5-5.0) g/dL Globulin 2.9 (2.2-3.9) gm/dL Albumin/Globulin Ratio 0.7 L (1.0-2.1) Pleural Total Protein g/dL Pleural LDH U/L Pleural Glucose mg/dL Pleural Amylase U/L 06/13/16 Range/Units 16:27 WBC (4.8-10.8) K/uL RBC (3.80-5.20) Mil/uL Hgb (11.0-16.0) g/dL Hct (34.0-47.0) % MCV (81.0-99.0) fL MCH (27.0-31.0) pg MCHC (33.0-37.0) g/dL RDW (11.5-14.5) % Plt Count (130-400) K/uL MPV (7.2-11.7) fL Neut % (Auto) (50.0-75.0) % Lymph % (Auto) (20.0-40.0) % [place] % (Auto) (0.0-10.0) % Eos % (Auto) (0.0-4.0) % Baso % (Auto) (0.0-2.0) % Neut # (1.8-7.0) K/uL Lymph # (1.0-4.3) K/uL [place] # (0.0-0.8) K/uL Eos # (0.0-0.7) K/uL Baso # (0.0-0.2) K/uL Neutrophils % (Manual) (50-75) % Band Neutrophils % (0-2) % Lymphocytes % (Manual) (20-40) % Monocytes % (Manual) (0-10) % Eosinophils % (Manual) (0-4) % Metamyelocytes % (0-0) % Platelet Estimate (NORMAL) Hypochromasia (manual) Poikilocytosis (manual Anisocytosis (manual) Microcytosis (manual) Macrocytosis (manual) Tear Drop Cells Ovalocytes [place] Cells Puncture Site pCO2 (35-45) mm/Hg pO2 (80-100) mm/Hg HCO3 (21-28) mmol/L ABG pH (7.35-7.45) ABG Total CO2 (22-28) mmol/L ABG O2 Saturation (95-98) % ABG Base Excess (-2.0-3.0) mmol/L ABG Hemoglobin (11.7-17.4) g/dL ABG Carboxyhemoglobin (0.5-1.5) % POC ABG HHb (Measured) (0.0-5.0) % ABG Methemoglobin (0.0-3.0) % Oscar Test A-a O2 Difference mm/Hg Respiratory Index Hgb O2 Saturation (95.0-98.0) % Mechanical Rate FiO2 % Tidal Volume PEEP Sodium (132-148) mmol/L Potassium (3.6-5.2) mmol/L Chloride (98-107) mmol/L Carbon Dioxide (22-30) mmol/L Anion Gap (10-20) BUN (7-17) mg/dL Creatinine (0.7-1.2) MG/DL Est GFR ( Amer) Est GFR (Non-Af Amer) Random Glucose (65-105) mg/dL Calcium (8.6-10.4) mg/dl Phosphorus (2.5-4.5) mg/dL Magnesium (1.6-2.3) mg/dL Total Bilirubin (0.2-1.3) mg/dL AST (14-36) U/L ALT (9-52) U/L Alkaline Phosphatase (38-126) U/L Total Protein (6.3-8.3) g/dL Albumin (3.5-5.0) g/dL Globulin (2.2-3.9) gm/dL Albumin/Globulin Ratio (1.0-2.1) Pleural Total Protein <3.0 g/dL Pleural LDH 2223 U/L Pleural Glucose 144 mg/dL Pleural Amylase 11 U/L Laboratory Results - last 24 hr 06/13/16 06/17/16 06/17/16 16:27 06:29 16:47 WBC 13.8 H RBC 4.11 Hgb 10.7 L Hct 34.9 MCV 85.0 MCH 26.0 L MCHC 30.6 L RDW 22.8 H Plt Count 163 D MPV 8.8 Neut % (Auto) 87.0 H 86.2 H Lymph % (Auto) 6.0 L 4.8 L [place] % (Auto) 7.0 8.2 Eos % (Auto) 0.0 0.5 Baso % (Auto) 0.0 0.3 Neut # 19.0 H 11.9 H Lymph # 1.3 0.7 L [place] # 1.5 H 1.1 H Eos # 0.0 0.1 Baso # 0.0 0.0 Neutrophils % (Manual) 90 H 84 H Band Neutrophils % 1 Lymphocytes % (Manual) 5 L 4 L Monocytes % (Manual) 4 10 Eosinophils % (Manual) 1 Metamyelocytes % 1 H Platelet Estimate Normal Normal Hypochromasia (manual) Slight Slight Poikilocytosis (manual Slight Slight Anisocytosis (manual) Slight Slight Microcytosis (manual) Slight Macrocytosis (manual) Tear Drop Cells Slight Ovalocytes Slight [place] Cells Slight Puncture Site pCO2 pO2 HCO3 ABG pH ABG Total CO2 ABG O2 Saturation ABG Base Excess ABG Hemoglobin ABG Carboxyhemoglobin POC ABG HHb (Measured) ABG Methemoglobin Oscar Test A-a O2 Difference Respiratory Index Hgb O2 Saturation Mechanical Rate FiO2 Tidal Volume PEEP Sodium Potassium Chloride Carbon Dioxide Anion Gap BUN Creatinine Est GFR ( Amer) Est GFR (Non-Af Amer) Random Glucose Calcium Phosphorus Magnesium Total Bilirubin AST ALT Alkaline Phosphatase Total Protein Albumin Globulin Albumin/Globulin Ratio Pleural Total Protein <3.0 Pleural LDH 2223 Pleural Glucose 144 Pleural Amylase 11 06/17/16 06/18/16 06/18/16 16:47 04:15 06:24 WBC 16.0 H RBC 3.90 Hgb 10.2 L Hct 33.3 L MCV 85.3 MCH 26.2 L MCHC 30.8 L RDW 22.5 H Plt Count 173 MPV 8.5 Neut % (Auto) 91.0 H Lymph % (Auto) 3.0 L [place] % (Auto) 5.0 Eos % (Auto) 1.0 Baso % (Auto) 0.0 Neut # 1.5 L Lymph # 0.1 L [place] # 0.1 Eos # 0.0 Baso # 0.0 Neutrophils % (Manual) 89 H Band Neutrophils % 2 Lymphocytes % (Manual) 6 L Monocytes % (Manual) 3 Eosinophils % (Manual) Metamyelocytes % Platelet Estimate Normal Hypochromasia (manual) Slight Poikilocytosis (manual Slight Anisocytosis (manual) Slight Microcytosis (manual) Slight Macrocytosis (manual) Slight Tear Drop Cells Slight Ovalocytes [place] Cells Slight Puncture Site Rr pCO2 36 pO2 111 H HCO3 22.7 ABG pH 7.39 ABG Total CO2 22.9 ABG O2 Saturation 99.4 H ABG Base Excess -2.8 L ABG Hemoglobin 10.5 L ABG Carboxyhemoglobin 2.1 H POC ABG HHb (Measured) 0.6 ABG Methemoglobin 1.3 Oscar Test Pos A-a O2 Difference 58.0 Respiratory Index 0.5 Hgb O2 Saturation 96.0 Mechanical Rate 14 FiO2 30.0 Tidal Volume 500 PEEP 5 Sodium 143 Potassium 3.7 Chloride 110 H Carbon Dioxide 22 Anion Gap 14 BUN 52 H Creatinine 1.6 H Est GFR ( Amer) 38 Est GFR (Non-Af Amer) 31 Random Glucose 94 Calcium 6.1 L Phosphorus 4.5 Magnesium 1.7 Total Bilirubin 1.1 AST 14 ALT 16 Alkaline Phosphatase 114 Total Protein 5.1 L Albumin 2.1 L Globulin 2.9 Albumin/Globulin Ratio 0.7 L Pleural Total Protein Pleural LDH Pleural Glucose Pleural Amylase 06/18/16 06:27 WBC RBC Hgb Hct MCV MCH MCHC RDW Plt Count MPV Neut % (Auto) Lymph % (Auto) [place] % (Auto) Eos % (Auto) Baso % (Auto) Neut # Lymph # [place] # Eos # Baso # Neutrophils % (Manual) Band Neutrophils % Lymphocytes % (Manual) Monocytes % (Manual) Eosinophils % (Manual) Metamyelocytes % Platelet Estimate Hypochromasia (manual) Poikilocytosis (manual Anisocytosis (manual) Microcytosis (manual) Macrocytosis (manual) Tear Drop Cells Ovalocytes Jesus Cells Puncture Site pCO2 pO2 HCO3 ABG pH ABG Total CO2 ABG O2 Saturation ABG Base Excess ABG Hemoglobin ABG Carboxyhemoglobin POC ABG HHb (Measured) ABG Methemoglobin Oscar Test A-a O2 Difference Respiratory Index Hgb O2 Saturation Mechanical Rate FiO2 Tidal Volume PEEP Sodium 142 Potassium 3.4 L Chloride 110 H Carbon Dioxide 22 Anion Gap 13 BUN 50 H Creatinine 1.5 H Est GFR ( Amer) 41 Est GFR (Non-Af Amer) 33 Random Glucose 95 Calcium 5.8 L* Phosphorus 4.5 Magnesium 1.6 Total Bilirubin 1.1 AST 14 ALT 16 Alkaline Phosphatase 105 Total Protein 4.6 L Albumin 2.0 L Globulin 2.5 Albumin/Globulin Ratio 0.8 L Pleural Total Protein Pleural LDH Pleural Glucose Pleural Amylase Assessment/Plan - Assessment and Plan (Free Text) Assessment: 80 year old female with PMHx of CHF, COPD, HTN, Respiratory failure, recurrent UTIs. presented with dehydration, hypernatremia, acute on chronic respiratory failure, and a UTI. IR thoracentesis (06/09.) Intubated (06/10). Open thoracotomy, right chest tube placement (06/13). Plan: Neuro: Alert, following some commands. Precedex drip, titrating down. Pulm: Acute respiratory failure on vent. PVRC: PEEP 5, RR 14, FiO2 30% Bronchoscopy performed, chest tube inserted. Right chest tube in place, drained 320 mL's overnight. COPD, decreased Solu-Medrol 20 mg IV every 12h. Continue pressure support trials. CV: Septic shock on Levophed drip, titrating down. Right IJ inserted. Hem: No acute issues Renal: Oliguria did not improve after extra fluids and albumin drip, possibly patient's poor baseline, with CKD. Another albumin dose was administered. Endo: No acute issues GI: Isosource at 45 + free water 200 ml q6h; 5000cc bilious content - Surgery consulted for tracheostomy and for evaluation of ileus/sbo ID: Septic shock secondary to UTI. ID - Dr. Cantrell. Proteus in urine, Acinetobacter in the sputum. Stopped the Primaxin and started Coly-Mycin instead (due to resistance to Primaxin), started Tigecycline (Acinetobacter). Abdominal xray showed dilated bowel loops. Started on Flagyl. F/U stool studies , c diff. F/U fluid studies MSK: dopplers to rule out DVT due to swollen legs- negative for DVT Prophylaxis: DVT- heparin subQ, GI proph - Protonix Palliative care consulted DW Rashawn Kirby DO, PGY-1 <Cheo Farnsworth S - Last Filed: 06/18/16 18:40> CCU Objective - Vital Signs / Intake & Output Vital Signs (Last 4 hours): Vital Signs Temp Pulse Resp BP Pulse Ox 06/18/16 18:00 133 H 15 06/18/16 17:50 118 H 11 L 98/56 L 96 06/18/16 17:00 113 H 13 06/18/16 16:50 105 H 13 98/56 L 06/18/16 16:00 97 F L 126 H 13 100 06/18/16 15:50 107 H 11 L 104/52 L 81 L 06/18/16 15:00 121 H 16 93 L 06/18/16 14:50 110 H 17 114/38 L 92 L Intake and Output (Last 8hrs): Intake & Output 06/18/16 06/18/16 06/18/16 06:59 14:59 22:59 Intake Total 1396.5 1171.4 400 Output Total 1840 196 30 Balance -443.5 975.4 370 Weight 284 lb 13.396 oz Intake: IV 304 154 Intake, IV Amount 1092.5 1017.4 400 Right Distal Port 292.5 217.4 Internal Jugular right medial 800 800 400 Oral 0 0 Output: Chest Tube Drainage 200 Left Lateral Chest 200 Gastric Amount 1300 Stomach 1300 Urine 340 195 30 Urethral (Gonzalez) 340 195 30 Stool 1 Other: # Bowel Movements 0 0 - Medications Active Medications: Active Medications Generic Name Dose Route Start Last Admin Trade Name Freq PRN Reason Stop Dose Admin Albuterol/Ipratropium 3 ml 06/11/16 10:45 06/18/16 13:25 Duoneb 3 Mg/0.5 Mg (3 Ml) Ud INH 3 ml RQ6 SHARIF Administration Calcium/Vitamin D 1 tab 06/18/16 10:00 06/18/16 09:55 Oyster Shell Calcium/Vitamin D 500 Mg-200 Iu PO 1 tab DAILY SHARIF Administration Heparin Sodium (Porcine) 5,000 units 06/17/16 10:00 06/18/16 09:55 Heparin SC 5,000 units Q12 SHARIF Administration Levetiracetam 500 mg/ Sodium 105 mls @ 420 mls/hr 06/07/16 18:30 06/18/16 18: 00 Chloride IVPB 420 mls/hr Q12H SHARIF Administration Norepinephrine Bitartrate 4 mg 254 mls @ 15.24 mls/hr 06/11/16 16:25 14:06 / Dextrose IV 5 mcg/min .[id number] PRN 19.05 mls/hr TITRATE PER MD ORDER Titration Protocol 4 MCG/MIN Tigecycline 50 mg/ Sodium 100 mls @ 100 mls/hr 06/15/16 02:00 06/18/16 14:15 Chloride IVPB 100 mls/hr Q12H SHARIF Administration Dexmedetomidine HCl 200 mcg/ 50 mls @ 6.51 mls/hr 06/15/16 22:00 06/17/16 01: 27 Sodium Chloride IV 0.15 mcg/kg/hr TITR PRN 4.88 mls/hr Agitation Administration Protocol 0.2 MCG/KG/HR Colistimethate Sodium 150 mg/ 100 mls @ 200 mls/hr 06/17/16 00:00 06/17/16 23 :33 Sodium Chloride IV 200 mls/hr Q24H SHARIF Administration Lactated Ringer's 1,000 mls @ 100 mls/hr 06/17/16 11:45 06/18/16 16:38 Lactated Ringer's IV 100 mls/hr .Q10H SHARIF Administration Metronidazole 500 mg in 100 mls @ 100 mls/hr 06/18/16 00:00 06/18/16 16:39 Flagyl IVPB 100 mls/hr Q8H SHARIF Administration Methylprednisolone 20 mg 06/15/16 18:00 06/18/16 18:00 Solu-Medrol IVP 20 mg 0600,1800 SHARIF Administration Pantoprazole Sodium 40 mg 06/05/16 10:00 06/18/16 09:55 Protonix Inj IVP 40 mg DAILY HSARIF Administration - Patient Studies Lab Studies: Microbiology Studies 06/16/16 22:40 Blood Culture - Preliminary Blood-Thru Central Line NO GROWTH AFTER 24 HOURS 06/16/16 23:45 Blood Culture - Preliminary Blood-Thru Central Line NO GROWTH AFTER 24 HOURS Lab Studies 06/18/16 06/18/16 06/18/16 Range/Units 06:27 06:24 04:15 WBC 16.0 H (4.8-10.8) K/uL RBC 3.90 (3.80-5.20) Mil/uL Hgb 10.2 L (11.0-16.0) g/dL Hct 33.3 L (34.0-47.0) % MCV 85.3 (81.0-99.0) fL MCH 26.2 L (27.0-31.0) pg MCHC 30.8 L (33.0-37.0) g/dL RDW 22.5 H (11.5-14.5) % Plt Count 173 (130-400) K/uL MPV 8.5 (7.2-11.7) fL Neut % (Auto) 91.0 H (50.0-75.0) % Lymph % (Auto) 3.0 L (20.0-40.0) % [place] % (Auto) 5.0 (0.0-10.0) % Eos % (Auto) 1.0 (0.0-4.0) % Baso % (Auto) 0.0 (0.0-2.0) % Neut # 1.5 L (1.8-7.0) K/uL Lymph # 0.1 L (1.0-4.3) K/uL [place] # 0.1 (0.0-0.8) K/uL Eos # 0.0 (0.0-0.7) K/uL Baso # 0.0 (0.0-0.2) K/uL Neutrophils % (Manual) 89 H (50-75) % Band Neutrophils % 2 (0-2) % Lymphocytes % (Manual) 6 L (20-40) % Monocytes % (Manual) 3 (0-10) % Platelet Estimate Normal (NORMAL) Hypochromasia (manual) Slight Poikilocytosis (manual Slight Anisocytosis (manual) Slight Microcytosis (manual) Slight Macrocytosis (manual) Slight Tear Drop Cells Slight Jesus Cells Slight Puncture Site Rr pCO2 36 (35-45) mm/Hg pO2 111 H (80-100) mm/Hg HCO3 22.7 (21-28) mmol/L ABG pH 7.39 (7.35-7.45) ABG Total CO2 22.9 (22-28) mmol/L ABG O2 Saturation 99.4 H (95-98) % ABG Base Excess -2.8 L (-2.0-3.0) mmol/L ABG Hemoglobin 10.5 L (11.7-17.4) g/dL ABG Carboxyhemoglobin 2.1 H (0.5-1.5) % POC ABG HHb (Measured) 0.6 (0.0-5.0) % ABG Methemoglobin 1.3 (0.0-3.0) % Oscar Test Pos A-a O2 Difference 58.0 mm/Hg Respiratory Index 0.5 Hgb O2 Saturation 96.0 (95.0-98.0) % Mechanical Rate 14 FiO2 30.0 % Tidal Volume 500 PEEP 5 Sodium 142 (132-148) mmol/L Potassium 3.4 L (3.6-5.2) mmol/L Chloride 110 H (98-107) mmol/L Carbon Dioxide 22 (22-30) mmol/L Anion Gap 13 (10-20) BUN 50 H (7-17) mg/dL Creatinine 1.5 H (0.7-1.2) MG/DL Est GFR ( Amer) 41 Est GFR (Non-Af Amer) 33 Random Glucose 95 (65-105) mg/dL Calcium 5.8 L* (8.6-10.4) mg/dl Phosphorus 4.5 (2.5-4.5) mg/dL Magnesium 1.6 (1.6-2.3) mg/dL Total Bilirubin 1.1 (0.2-1.3) mg/dL AST 14 (14-36) U/L ALT 16 (9-52) U/L Alkaline Phosphatase 105 (38-126) U/L Total Protein 4.6 L (6.3-8.3) g/dL Albumin 2.0 L (3.5-5.0) g/dL Globulin 2.5 (2.2-3.9) gm/dL Albumin/Globulin Ratio 0.8 L (1.0-2.1) Pleural Total Protein g/dL Pleural LDH U/L Pleural Glucose mg/dL Pleural Amylase U/L Stool Leukocytes, Qual (NEGATIVE) C. difficile Ag & Toxin (NEGATIVE) 06/17/16 06/17/16 06/13/16 Range/Units Unknown Unknown 16:27 WBC (4.8-10.8) K/uL RBC (3.80-5.20) Mil/uL Hgb (11.0-16.0) g/dL Hct (34.0-47.0) % MCV (81.0-99.0) fL MCH (27.0-31.0) pg MCHC (33.0-37.0) g/dL RDW (11.5-14.5) % Plt Count (130-400) K/uL MPV (7.2-11.7) fL Neut % (Auto) (50.0-75.0) % Lymph % (Auto) (20.0-40.0) % [place] % (Auto) (0.0-10.0) % Eos % (Auto) (0.0-4.0) % Baso % (Auto) (0.0-2.0) % Neut # (1.8-7.0) K/uL Lymph # (1.0-4.3) K/uL [place] # (0.0-0.8) K/uL Eos # (0.0-0.7) K/uL Baso # (0.0-0.2) K/uL Neutrophils % (Manual) (50-75) % Band Neutrophils % (0-2) % Lymphocytes % (Manual) (20-40) % Monocytes % (Manual) (0-10) % Platelet Estimate (NORMAL) Hypochromasia (manual) Poikilocytosis (manual Anisocytosis (manual) Microcytosis (manual) Macrocytosis (manual) Tear Drop Cells [place] Cells Puncture Site pCO2 (35-45) mm/Hg pO2 (80-100) mm/Hg HCO3 (21-28) mmol/L ABG pH (7.35-7.45) ABG Total CO2 (22-28) mmol/L ABG O2 Saturation (95-98) % ABG Base Excess (-2.0-3.0) mmol/L ABG Hemoglobin (11.7-17.4) g/dL ABG Carboxyhemoglobin (0.5-1.5) % POC ABG HHb (Measured) (0.0-5.0) % ABG Methemoglobin (0.0-3.0) % Oscar Test A-a O2 Difference mm/Hg Respiratory Index Hgb O2 Saturation (95.0-98.0) % Mechanical Rate FiO2 % Tidal Volume PEEP Sodium (132-148) mmol/L Potassium (3.6-5.2) mmol/L Chloride (98-107) mmol/L Carbon Dioxide (22-30) mmol/L Anion Gap (10-20) BUN (7-17) mg/dL Creatinine (0.7-1.2) MG/DL Est GFR ( Amer) Est GFR (Non-Af Amer) Random Glucose (65-105) mg/dL Calcium (8.6-10.4) mg/dl Phosphorus (2.5-4.5) mg/dL Magnesium (1.6-2.3) mg/dL Total Bilirubin (0.2-1.3) mg/dL AST (14-36) U/L ALT (9-52) U/L Alkaline Phosphatase (38-126) U/L Total Protein (6.3-8.3) g/dL Albumin (3.5-5.0) g/dL Globulin (2.2-3.9) gm/dL Albumin/Globulin Ratio (1.0-2.1) Pleural Total Protein <3.0 g/dL Pleural LDH 2223 U/L Pleural Glucose 144 mg/dL Pleural Amylase 11 U/L Stool Leukocytes, Qual Negative (NEGATIVE) C. difficile Ag & Toxin Negative (NEGATIVE) Laboratory Results - last 24 hr 06/13/16 06/17/16 06/17/16 16:27 Unknown Unknown WBC RBC Hgb Hct MCV MCH MCHC RDW Plt Count MPV Neut % (Auto) Lymph % (Auto) [place] % (Auto) Eos % (Auto) Baso % (Auto) Neut # Lymph # [place] # Eos # Baso # Neutrophils % (Manual) Band Neutrophils % Lymphocytes % (Manual) Monocytes % (Manual) Platelet Estimate Hypochromasia (manual) Poikilocytosis (manual Anisocytosis (manual) Microcytosis (manual) Macrocytosis (manual) Tear Drop Cells Jesus Cells Puncture Site pCO2 pO2 HCO3 ABG pH ABG Total CO2 ABG O2 Saturation ABG Base Excess ABG Hemoglobin ABG Carboxyhemoglobin POC ABG HHb (Measured) ABG Methemoglobin Oscar Test A-a O2 Difference Respiratory Index Hgb O2 Saturation Mechanical Rate FiO2 Tidal Volume PEEP Sodium Potassium Chloride Carbon Dioxide Anion Gap BUN Creatinine Est GFR ( Amer) Est GFR (Non-Af Amer) Random Glucose Calcium Phosphorus Magnesium Total Bilirubin AST ALT Alkaline Phosphatase Total Protein Albumin Globulin Albumin/Globulin Ratio Pleural Total Protein <3.0 Pleural LDH 2223 Pleural Glucose 144 Pleural Amylase 11 Stool Leukocytes, Qual Negative C. difficile Ag & Toxin Negative 06/18/16 06/18/16 06/18/16 04:15 06:24 06:27 WBC 16.0 H RBC 3.90 Hgb 10.2 L Hct 33.3 L MCV 85.3 MCH 26.2 L MCHC 30.8 L RDW 22.5 H Plt Count 173 MPV 8.5 Neut % (Auto) 91.0 H Lymph % (Auto) 3.0 L [place] % (Auto) 5.0 Eos % (Auto) 1.0 Baso % (Auto) 0.0 Neut # 1.5 L Lymph # 0.1 L [place] # 0.1 Eos # 0.0 Baso # 0.0 Neutrophils % (Manual) 89 H Band Neutrophils % 2 Lymphocytes % (Manual) 6 L Monocytes % (Manual) 3 Platelet Estimate Normal Hypochromasia (manual) Slight Poikilocytosis (manual Slight Anisocytosis (manual) Slight Microcytosis (manual) Slight Macrocytosis (manual) Slight Tear Drop Cells Slight [place] Cells Slight Puncture Site Rr pCO2 36 pO2 111 H HCO3 22.7 ABG pH 7.39 ABG Total CO2 22.9 ABG O2 Saturation 99.4 H ABG Base Excess -2.8 L ABG Hemoglobin 10.5 L ABG Carboxyhemoglobin 2.1 H POC ABG HHb (Measured) 0.6 ABG Methemoglobin 1.3 Oscar Test Pos A-a O2 Difference 58.0 Respiratory Index 0.5 Hgb O2 Saturation 96.0 Mechanical Rate 14 FiO2 30.0 Tidal Volume 500 PEEP 5 Sodium 142 Potassium 3.4 L Chloride 110 H Carbon Dioxide 22 Anion Gap 13 BUN 50 H Creatinine 1.5 H Est GFR ( Amer) 41 Est GFR (Non-Af Amer) 33 Random Glucose 95 Calcium 5.8 L* Phosphorus 4.5 Magnesium 1.6 Total Bilirubin 1.1 AST 14 ALT 16 Alkaline Phosphatase 105 Total Protein 4.6 L Albumin 2.0 L Globulin 2.5 Albumin/Globulin Ratio 0.8 L Pleural Total Protein Pleural LDH Pleural Glucose Pleural Amylase Stool Leukocytes, Qual C. difficile Ag & Toxin Assessment/Plan (1) Acute respiratory failure Current Visit: No Status: Acute Comment: secondary to pneumonia and sepsis Thick secretions from ET tube Continue antibiotics Wean as tolerated (2) Pleural effusion Current Visit: Yes Status: Acute (3) UTI (urinary tract infection) Current Visit: Yes Status: Acute Comment: Broad spectrum antibiotic Fine cultures Attending/Attestation - Attestation I have personally seen and examined this patient.: Yes I have fully participated in the care of the patient.: Yes I have reviewed all pertinent clinical information: Yes Notes (Text): 06/18/16 18:39 Patient seen and examined in the intensive care unit. Case discussed with house staff in the morning rounds. Remained intubated on ventilatory support not tolerating weaning On Levophed at 9 mics Tracheostomy once patient's stable Feeding on hold because of distended bowels and possible ileus
--- NOTE | 2016-06-18 11:24 | CP.PCM.CON ---
History of Present Illness - History of Present Illness History of Present Illness: Patient is a 80 year old female with history of urosepsis, CHF, respiratory failure requiring intubation. Patient is currently intubated in the ICU on 8 mcgs of levophed due to hypotension and respiratory failure. Patient had chest tube placed on 06/12 for pleural effusion. Patient is currently being treated with IV antibiotics for proteus UTI and acinetobacter in sputum. Per ICU team, patient was noted to have profuse watery diarrhea yesterday, as well as 5L bilious output from OGT. Patient's abdomen was noted to be distended and abdominal xray was performed as patient cannot have CT due to body habitus. Abdominal xray noted dilated loops of small bowel concerning for high-grade partial and or intermittent small bowel obstruction. Surgical team consulted for ileus/ SBO and tracheostomy placement. Past medical history: CHF, COPD, HTN, pneumonia, chronic kidney disease, seizures (last one in 2013), multiple sclerosis, arthritis Surgeries: Tonsillectomy Allergies: NKDA Social history: The patient denies history of tobacco, alcohol, or recreational drug use. Review of Systems - Review of Systems Systems not reviewed;Unavailable: Intubated Past Patient History - Infectious Disease Hx of Infectious Diseases: None - Tetanus Immunizations Tetanus Immunization: Unknown - Past Medical History & Family History Past Medical History?: Yes - Past Social History Smoking Status: Never Smoked - CARDIAC Hx Cardiac Disorders: Yes Hx Congestive Heart Failure: Yes Hx Hypertension: Yes Hx Hypotension: Yes - PULMONARY Hx Respiratory Disorders: Yes Hx Chronic Obstructive Pulmonary Disease (COPD): Yes Hx Pneumonia: Yes - NEUROLOGICAL Hx Neurological Disorder: Yes Hx Multiple Sclerosis: Yes (? in previous triage) Hx Seizures: Yes (LAST SEIZURE 2013) - HEENT Hx HEENT Problems: Yes (eyeglasses) Hx Cataracts: Yes (LEFT EYE) - RENAL Hx Chronic Kidney Disease: Yes - ENDOCRINE/METABOLIC Hx Endocrine Disorders: No - HEMATOLOGICAL/ONCOLOGICAL Hx Blood Disorders: No - INTEGUMENTARY Hx Dermatological Problems: Yes (HEALED SACRAL STAGE ONE DECUBITI) Other/Comment: healed sacral wound and healed right hip wound, right 5th toe darkened with hard callous. DRESSING TO LT FOOT - MUSCULOSKELETAL/RHEUMATOLOGICAL Hx Musculoskeletal Disorders: Yes Hx Arthritis: Yes Hx Degenerative Joint Disease: Yes Hx Falls: No - GASTROINTESTINAL Hx Gastrointestinal Disorders: Yes Hx Gastroesophageal Reflux: Yes - GENITOURINARY/GYNECOLOGICAL Hx Genitourinary Disorders: Yes (HYSTERECTOMY) Hx Incontinence: Yes Hx Urinary Tract Infection: Yes Other/Comment: UROSPESIS - PSYCHIATRIC Hx Psychophysiologic Disorder: No Hx Substance Use: No - SURGICAL HISTORY Hx Surgeries: Yes Hx Hysterectomy: Yes Hx Tonsillectomy: Yes - ANESTHESIA Hx Anesthesia: Yes Hx Anesthesia Reactions: No Hx Malignant Hyperthermia: No Meds Allergies/Adverse Reactions: Allergies Allergy/AdvReac Type Severity Reaction Status Date / Time No Known Allergies Allergy Verified 06/04/16 16:59 - Medications Medications: Current Medications Albuterol/Ipratropium (Duoneb 3 Mg/0.5 Mg (3 Ml) Ud) 3 ml INH RQ6 [facility] Last Admin: 06/18/16 07:34 Dose: 3 ml Calcium/Vitamin D (Oyster Shell Calcium/Vitamin D 500 Mg-200 Iu) 1 tab PO DAILY [facility] Last Admin: 06/18/16 09:55 Dose: 1 tab Heparin Sodium (Porcine) (Heparin) 5,000 units SC Q12 [facility] Last Admin: 06/18/16 09:55 Dose: 5,000 units Levetiracetam 500 mg/ Sodium (Chloride) 105 mls @ 420 mls/hr IVPB Q12H [facility] Last Admin: 06/18/16 06:20 Dose: 420 mls/hr Norepinephrine Bitartrate 4 mg (/ Dextrose) 254 mls @ 15.24 mls/hr IV .[id number] PRN; Protocol; 4 MCG/MIN PRN Reason: TITRATE PER MD ORDER Last Admin: 06/18/16 06:25 Dose: 8 mcg/min, 30.48 mls/hr Tigecycline 50 mg/ Sodium (Chloride) 100 mls @ 100 mls/hr IVPB Q12H [facility] Last Admin: 06/18/16 02:15 Dose: 100 mls/hr Dexmedetomidine HCl 200 mcg/ (Sodium Chloride) 50 mls @ 6.51 mls/hr IV TITR PRN ; Protocol; 0.2 MCG/KG/HR PRN Reason: Agitation Last Admin: 06/17/16 01:27 Dose: 0.15 mcg/kg/hr, 4.88 mls/hr Colistimethate Sodium 150 mg/ (Sodium Chloride) 100 mls @ 200 mls/hr IV Q24H [facility] Last Admin: 06/17/16 23:33 Dose: 200 mls/hr Lactated Ringer's (Lactated Ringer's) 1,000 mls @ 100 mls/hr IV .Q10H [facility] Last Admin: 06/18/16 02:15 Dose: 100 mls/hr Metronidazole (Flagyl) 500 mg in 100 mls @ 100 mls/hr IVPB Q8H [facility] Last Admin: 06/18/16 09:56 Dose: 100 mls/hr Methylprednisolone (Solu-Medrol) 20 mg IVP 0600,1800 [facility] Last Admin: 06/18/16 06:20 Dose: 20 mg Pantoprazole Sodium (Protonix Inj) 40 mg IVP DAILY [facility] Last Admin: 06/18/16 09:55 Dose: 40 mg Physical Exam - Constitutional Appears: No Acute Distress - Head Exam Head Exam: ATRAUMATIC, NORMOCEPHALIC - Eye Exam Eye Exam: EOMI - ENT Exam Additional comments: OGT in place, ET tube in place - Respiratory Exam Respiratory Exam: Decreased Breath Sounds Additional comments: left sided chest tube in place - Cardiovascular Exam Cardiovascular Exam: Tachycardia, +S1, +S2 - GI/Abdominal Exam GI & Abdominal Exam: Distended. absent: Guarding Additional comments: bowel sounds not appreciated due to body habitus moderate anasarca with dependent edema - Extremities Exam Extremities exam: Positive for: pedal pulses present - Neurological Exam Neurological exam: Alert - Skin Skin Exam: Warm Additional comments: anasarca Results - Vital Signs Recent Vital Signs: Last Vital Signs Temp 97.8 F 06/18/16 08:00 Pulse 136 H 06/18/16 10:00 Resp 10 L 06/18/16 10:00 BP 112/46 L 06/18/16 09:50 Pulse Ox 95 06/18/16 10:00 - Labs Result Diagrams: 06/18/16 06:24 06/18/16 06:27 Labs: Laboratory Results - last 24 hr 06/13/16 06/17/16 06/17/16 16:27 06:29 16:47 WBC 13.8 H RBC 4.11 Hgb 10.7 L Hct 34.9 MCV 85.0 MCH 26.0 L MCHC 30.6 L RDW 22.8 H Plt Count 163 D MPV 8.8 Neut % (Auto) 87.0 H 86.2 H Lymph % (Auto) 6.0 L 4.8 L [place] % (Auto) 7.0 8.2 Eos % (Auto) 0.0 0.5 Baso % (Auto) 0.0 0.3 Neut # 19.0 H 11.9 H Lymph # 1.3 0.7 L [place] # 1.5 H 1.1 H Eos # 0.0 0.1 Baso # 0.0 0.0 Neutrophils % (Manual) 90 H 84 H Band Neutrophils % 1 Lymphocytes % (Manual) 5 L 4 L Monocytes % (Manual) 4 10 Eosinophils % (Manual) 1 Metamyelocytes % 1 H Platelet Estimate Normal Normal Hypochromasia (manual) Slight Slight Poikilocytosis (manual Slight Slight Anisocytosis (manual) Slight Slight Microcytosis (manual) Slight Macrocytosis (manual) Tear Drop Cells Slight Ovalocytes Slight Jesus Cells Slight Puncture Site pCO2 pO2 HCO3 ABG pH ABG Total CO2 ABG O2 Saturation ABG Base Excess ABG Hemoglobin ABG Carboxyhemoglobin POC ABG HHb (Measured) ABG Methemoglobin Oscar Test A-a O2 Difference Respiratory Index Hgb O2 Saturation Mechanical Rate FiO2 Tidal Volume PEEP Sodium Potassium Chloride Carbon Dioxide Anion Gap BUN Creatinine Est GFR ( Amer) Est GFR (Non-Af Amer) Random Glucose Calcium Phosphorus Magnesium Total Bilirubin AST ALT Alkaline Phosphatase Total Protein Albumin Globulin Albumin/Globulin Ratio Pleural Total Protein <3.0 Pleural LDH 2223 Pleural Glucose 144 Pleural Amylase 11 06/17/16 06/18/16 06/18/16 16:47 04:15 06:24 WBC 16.0 H RBC 3.90 Hgb 10.2 L Hct 33.3 L MCV 85.3 MCH 26.2 L MCHC 30.8 L RDW 22.5 H Plt Count 173 MPV 8.5 Neut % (Auto) 91.0 H Lymph % (Auto) 3.0 L [place] % (Auto) 5.0 Eos % (Auto) 1.0 Baso % (Auto) 0.0 Neut # 1.5 L Lymph # 0.1 L [place] # 0.1 Eos # 0.0 Baso # 0.0 Neutrophils % (Manual) 89 H Band Neutrophils % 2 Lymphocytes % (Manual) 6 L Monocytes % (Manual) 3 Eosinophils % (Manual) Metamyelocytes % Platelet Estimate Normal Hypochromasia (manual) Slight Poikilocytosis (manual Slight Anisocytosis (manual) Slight Microcytosis (manual) Slight Macrocytosis (manual) Slight Tear Drop Cells Slight Ovalocytes [place] Cells Slight Puncture Site Rr pCO2 36 pO2 111 H HCO3 22.7 ABG pH 7.39 ABG Total CO2 22.9 ABG O2 Saturation 99.4 H ABG Base Excess -2.8 L ABG Hemoglobin 10.5 L ABG Carboxyhemoglobin 2.1 H POC ABG HHb (Measured) 0.6 ABG Methemoglobin 1.3 Oscar Test Pos A-a O2 Difference 58.0 Respiratory Index 0.5 Hgb O2 Saturation 96.0 Mechanical Rate 14 FiO2 30.0 Tidal Volume 500 PEEP 5 Sodium 143 Potassium 3.7 Chloride 110 H Carbon Dioxide 22 Anion Gap 14 BUN 52 H Creatinine 1.6 H Est GFR ( Amer) 38 Est GFR (Non-Af Amer) 31 Random Glucose 94 Calcium 6.1 L Phosphorus 4.5 Magnesium 1.7 Total Bilirubin 1.1 AST 14 ALT 16 Alkaline Phosphatase 114 Total Protein 5.1 L Albumin 2.1 L Globulin 2.9 Albumin/Globulin Ratio 0.7 L Pleural Total Protein Pleural LDH Pleural Glucose Pleural Amylase 06/18/16 06:27 WBC RBC Hgb Hct MCV MCH MCHC RDW Plt Count MPV Neut % (Auto) Lymph % (Auto) [place] % (Auto) Eos % (Auto) Baso % (Auto) Neut # Lymph # [place] # Eos # Baso # Neutrophils % (Manual) Band Neutrophils % Lymphocytes % (Manual) Monocytes % (Manual) Eosinophils % (Manual) Metamyelocytes % Platelet Estimate Hypochromasia (manual) Poikilocytosis (manual Anisocytosis (manual) Microcytosis (manual) Macrocytosis (manual) Tear Drop Cells Ovalocytes [place] Cells Puncture Site pCO2 pO2 HCO3 ABG pH ABG Total CO2 ABG O2 Saturation ABG Base Excess ABG Hemoglobin ABG Carboxyhemoglobin POC ABG HHb (Measured) ABG Methemoglobin Oscar Test A-a O2 Difference Respiratory Index Hgb O2 Saturation Mechanical Rate FiO2 Tidal Volume PEEP Sodium 142 Potassium 3.4 L Chloride 110 H Carbon Dioxide 22 Anion Gap 13 BUN 50 H Creatinine 1.5 H Est GFR ( Amer) 41 Est GFR (Non-Af Amer) 33 Random Glucose 95 Calcium 5.8 L* Phosphorus 4.5 Magnesium 1.6 Total Bilirubin 1.1 AST 14 ALT 16 Alkaline Phosphatase 105 Total Protein 4.6 L Albumin 2.0 L Globulin 2.5 Albumin/Globulin Ratio 0.8 L Pleural Total Protein Pleural LDH Pleural Glucose Pleural Amylase Assessment & Plan - Assessment and Plan (Free Text) Assessment: 80 year old female with left pleural effusion, hypotension, respiratory failure requiring mechanical ventilation, and partial small bowel obstruction - continue to hold tube feeds - maintain OGT - follow up stool studies for watery diarrhea - per Dr. Farnsworth, tracheostomy should not be done today as patient still requiring 8mcg levophed - further recs per Dr. Hu
--- NOTE | 2016-06-18 11:53 | CP.PCM.PN ---
Subjective - Date & Time of Evaluation Date of Evaluation: 06/18/16 Time of Evaluation: 10:00 - Subjective Subjective: Patient intubated, offers no complaints Objective - Vital Signs/Intake and Output Vital Signs (last 24 hours): Temp Pulse Resp BP Pulse Ox 97.8 F 132 H 11 L 106/49 L 99 06/18/16 08:00 06/18/16 11:00 06/18/16 11:00 06/18/16 10:50 06/18/16 11:00 Intake and Output: 06/18/16 06/18/16 06:59 18:59 Intake Total 1946.5 650 Output Total 2635 100 Balance -688.5 550 - Medications Medications: Current Medications Albuterol/Ipratropium (Duoneb 3 Mg/0.5 Mg (3 Ml) Ud) 3 ml INH RQ6 [facility] Last Admin: 06/18/16 07:34 Dose: 3 ml Calcium/Vitamin D (Oyster Shell Calcium/Vitamin D 500 Mg-200 Iu) 1 tab PO DAILY [facility] Last Admin: 06/18/16 09:55 Dose: 1 tab Heparin Sodium (Porcine) (Heparin) 5,000 units SC Q12 [facility] Last Admin: 06/18/16 09:55 Dose: 5,000 units Levetiracetam 500 mg/ Sodium (Chloride) 105 mls @ 420 mls/hr IVPB Q12H [facility] Last Admin: 06/18/16 06:20 Dose: 420 mls/hr Norepinephrine Bitartrate 4 mg (/ Dextrose) 254 mls @ 15.24 mls/hr IV .[id number] PRN; Protocol; 4 MCG/MIN PRN Reason: TITRATE PER MD ORDER Last Admin: 06/18/16 06:25 Dose: 8 mcg/min, 30.48 mls/hr Tigecycline 50 mg/ Sodium (Chloride) 100 mls @ 100 mls/hr IVPB Q12H [facility] Last Admin: 06/18/16 02:15 Dose: 100 mls/hr Dexmedetomidine HCl 200 mcg/ (Sodium Chloride) 50 mls @ 6.51 mls/hr IV TITR PRN ; Protocol; 0.2 MCG/KG/HR PRN Reason: Agitation Last Admin: 06/17/16 01:27 Dose: 0.15 mcg/kg/hr, 4.88 mls/hr Colistimethate Sodium 150 mg/ (Sodium Chloride) 100 mls @ 200 mls/hr IV Q24H [facility] Last Admin: 06/17/16 23:33 Dose: 200 mls/hr Lactated Ringer's (Lactated Ringer's) 1,000 mls @ 100 mls/hr IV .Q10H [facility] Last Admin: 06/18/16 02:15 Dose: 100 mls/hr Metronidazole (Flagyl) 500 mg in 100 mls @ 100 mls/hr IVPB Q8H [facility] Last Admin: 06/18/16 09:56 Dose: 100 mls/hr Methylprednisolone (Solu-Medrol) 20 mg IVP 0600,1800 [facility] Last Admin: 06/18/16 06:20 Dose: 20 mg Pantoprazole Sodium (Protonix Inj) 40 mg IVP DAILY [facility] Last Admin: 06/18/16 09:55 Dose: 40 mg - Labs Labs: 06/18/16 06:24 06/18/16 06:27 PT 14.4 SECONDS (9.7-12.2) H 06/13/16 06:28 INR 1.3 06/13/16 06:28 APTT 34 SECONDS (21-34) 06/13/16 06:28 - Constitutional Appears: Chronically Ill - Head Exam Head Exam: ATRAUMATIC, NORMAL INSPECTION, NORMOCEPHALIC - Eye Exam Eye Exam: EOMI, Normal appearance, PERRL Pupil Exam: NORMAL ACCOMODATION - ENT Exam ENT Exam: Mucous Membranes Dry Additional comments: ET tube - Neck Exam Neck Exam: Normal Inspection - Respiratory Exam Respiratory Exam: Decreased Breath Sounds Additional comments: On MV - GI/Abdominal Exam GI & Abdominal Exam: Distended, Firm, Hypoactive Bowel Sounds - Rectal Exam Rectal Exam: Deferred - Exam Additional comments: Gonzalez cath - Extremities Exam Extremities Exam: Pedal Edema - Back Exam Back Exam: NORMAL INSPECTION - Neurological Exam Neurological Exam: Alert, Oriented x3 Neuro motor strength exam: Left Upper Extremity: 2/1, Right Upper Extremity: 2/1 , Left Lower Extremity: 2/1, Right Lower Extremity: 2/1 - Psychiatric Exam Psychiatric exam: Anxious - Skin Skin Exam: Normal Color, Warm Assessment and Plan - Assessment and Plan (Free Text) Assessment: Patient is alert, on MV with ET tube trying to speak over the tube. It is hard to communicate with patient due to her condition. Patient has been on weaning trials X 2 and was not success. BP still supported by Levophed Iv, low at 106/49 , HR 102. Abdomen is distended, X Ray showed abdominal obstruction. patient had about 3000 cc of bilious secretion from OT. WBC 16.0, Hb 10.2, Ca low 5.8. 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 I discussed this with patient herself. Patient listened to very carefully and stated understanding. I asked her to call Althea, her sister who patient named to be a POA on last admission, and she agreed. I spoke to Althea over the phone ) and explained the necessity of trach at this time. Althea gave the approval for the procedure. This was shared with Doctor Rashawn. Impression * This is a chronically ill patient , dependent of MV for respiratory support * Patient is not tolerating weaning trials * Patient is alert, but no verbal due to ET * Trach may be necessary for half-way vent support * Patient's sister Althea agreed with trach ( she is a proxy Suggestion * Agree with trach * Symptoms control
--- NOTE | 2016-06-18 15:01 | CP.PCM.CON ---
<Haresh Carr - Last Filed: 06/18/16 16:10> History of Present Illness - History of Present Illness History of Present Illness: Cardiology Consultation Note Dr. Byers CC: Cardiac Risk assessment for tracheostomy HPI: This is a 80 year old female with PMH of CHF, COPD, Arthritis, GERD, CKD, Seizures presents for cardiac risk assessment of tracheostomy placement. She was admitted on 06/04/16 for altered mental status. She is currently intubated ( PRVC settings: RR14, FiO2 30%, PEEP 5, Tvolume 500) in the ICU due to respiratory distress. Patient is presently on pressure support with 8mcgs of levophed. History obtained from nursing staff, ICU staff, and medical record. Patient has a history of multiple urinary tract infections and urosepsis. Patient presented to the ED from [facility] due to abnormal lab values. Patient minimally responsive on admission, placed on BiPAP with some improvement and eventually intubated on 06/11/16. On initial presentation to ED , patient was also hypotensive and did not respond to fluid resuscitation. Urine and blood cultures were positive for Proteus and Staphylococcal bacteremia respectively. Patient is presently maintained on tigecycline for infection. Initial CXR indicated b/l pleural effusions. Ultrasound-guided left thoracentesis was performed for left pleural effusion by interventional radiology. 600 cc of slight serosanguinous fluid was drained from the left hemithorax on 06/09/16. Patient had chest tube placed 06/13/16 which continues to drain serosanguinous fluid. The patient will require tracheostomy for half-way ventilatory support. ROS unable to be obtained due to intubation. Most recent EKG on 06/04 showed Sinus tachycardia, 109 bpm, normal physio axis, mildly prolonged CT interval of 202ms, prolonged QTc of 482 ms. 02/25/16 Echo shows grade I abnormal relaxation pattern with preserved systolic function. Social: smoking hx PMH: CHF, COPD, CKD, Arthritis, GERD, Seizures PSH: Tonsillectomy Allergies: NKDA FH: denies Review of Systems - Review of Systems Systems not reviewed;Unavailable: Intubated Past Patient History - Infectious Disease Hx of Infectious Diseases: None - Tetanus Immunizations Tetanus Immunization: Unknown - Past Medical History & Family History Past Medical History?: Yes - Past Social History Smoking Status: Never Smoked - CARDIAC Hx Cardiac Disorders: Yes Hx Congestive Heart Failure: Yes Hx Hypertension: Yes Hx Hypotension: Yes - PULMONARY Hx Respiratory Disorders: Yes Hx Chronic Obstructive Pulmonary Disease (COPD): Yes Hx Pneumonia: Yes - NEUROLOGICAL Hx Neurological Disorder: Yes Hx Multiple Sclerosis: Yes (? in previous triage) Hx Seizures: Yes (LAST SEIZURE 2013) - HEENT Hx HEENT Problems: Yes (eyeglasses) Hx Cataracts: Yes (LEFT EYE) - RENAL Hx Chronic Kidney Disease: Yes - ENDOCRINE/METABOLIC Hx Endocrine Disorders: No - HEMATOLOGICAL/ONCOLOGICAL Hx Blood Disorders: No - INTEGUMENTARY Hx Dermatological Problems: Yes (HEALED SACRAL STAGE ONE DECUBITI) Other/Comment: healed sacral wound and healed right hip wound, right 5th toe darkened with hard callous. DRESSING TO LT FOOT - MUSCULOSKELETAL/RHEUMATOLOGICAL Hx Musculoskeletal Disorders: Yes Hx Arthritis: Yes Hx Degenerative Joint Disease: Yes Hx Falls: No - GASTROINTESTINAL Hx Gastrointestinal Disorders: Yes Hx Gastroesophageal Reflux: Yes - GENITOURINARY/GYNECOLOGICAL Hx Genitourinary Disorders: Yes (HYSTERECTOMY) Hx Incontinence: Yes Hx Urinary Tract Infection: Yes Other/Comment: UROSPESIS - PSYCHIATRIC Hx Psychophysiologic Disorder: No Hx Substance Use: No - SURGICAL HISTORY Hx Surgeries: Yes Hx Hysterectomy: Yes Hx Tonsillectomy: Yes - ANESTHESIA Hx Anesthesia: Yes Hx Anesthesia Reactions: No Hx Malignant Hyperthermia: No Meds Allergies/Adverse Reactions: Allergies Allergy/AdvReac Type Severity Reaction Status Date / Time No Known Allergies Allergy Verified 06/04/16 16:59 - Medications Medications: Current Medications Albuterol/Ipratropium (Duoneb 3 Mg/0.5 Mg (3 Ml) Ud) 3 ml INH RQ6 [facility] Last Admin: 06/18/16 13:25 Dose: 3 ml Calcium/Vitamin D (Oyster Shell Calcium/Vitamin D 500 Mg-200 Iu) 1 tab PO DAILY [facility] Last Admin: 06/18/16 09:55 Dose: 1 tab Heparin Sodium (Porcine) (Heparin) 5,000 units SC Q12 [facility] Last Admin: 06/18/16 09:55 Dose: 5,000 units Levetiracetam 500 mg/ Sodium (Chloride) 105 mls @ 420 mls/hr IVPB Q12H [facility] Last Admin: 06/18/16 06:20 Dose: 420 mls/hr Norepinephrine Bitartrate 4 mg (/ Dextrose) 254 mls @ 15.24 mls/hr IV .[id number] PRN; Protocol; 4 MCG/MIN PRN Reason: TITRATE PER MD ORDER Last Titration: 06/18/16 14:06 Dose: 5 mcg/min, 19.05 mls/hr Tigecycline 50 mg/ Sodium (Chloride) 100 mls @ 100 mls/hr IVPB Q12H [facility] Last Admin: 06/18/16 14:15 Dose: 100 mls/hr Dexmedetomidine HCl 200 mcg/ (Sodium Chloride) 50 mls @ 6.51 mls/hr IV TITR PRN ; Protocol; 0.2 MCG/KG/HR PRN Reason: Agitation Last Admin: 06/17/16 01:27 Dose: 0.15 mcg/kg/hr, 4.88 mls/hr Colistimethate Sodium 150 mg/ (Sodium Chloride) 100 mls @ 200 mls/hr IV Q24H [facility] Last Admin: 06/17/16 23:33 Dose: 200 mls/hr Lactated Ringer's (Lactated Ringer's) 1,000 mls @ 100 mls/hr IV .Q10H [facility] Last Admin: 06/18/16 12:01 Dose: Not Given Metronidazole (Flagyl) 500 mg in 100 mls @ 100 mls/hr IVPB Q8H [facility] Last Admin: 06/18/16 09:56 Dose: 100 mls/hr Methylprednisolone (Solu-Medrol) 20 mg IVP 0600,1800 [facility] Last Admin: 06/18/16 06:20 Dose: 20 mg Pantoprazole Sodium (Protonix Inj) 40 mg IVP DAILY [facility] Last Admin: 06/18/16 09:55 Dose: 40 mg Physical Exam - Constitutional Appears: Chronically Ill - Head Exam Head Exam: ATRAUMATIC, NORMOCEPHALIC Additional comments: ET Tube in place - Eye Exam Eye Exam: EOMI, Normal appearance Pupil Exam: NORMAL ACCOMODATION - ENT Exam ENT Exam: Mucous Membranes Moist - Neck Exam Neck exam: Positive for: Lymphadenopathy, Normal Inspection. Negative for: Tenderness - Respiratory Exam Respiratory Exam: NORMAL BREATHING PATTERN. absent: Respiratory Distress Additional comments: intubated PRVC settings: RR14, FiO2 30%, PEEP 5, Tvolume 500 - Cardiovascular Exam Cardiovascular Exam: Tachycardia, REGULAR RHYTHM, +S1, +S2. absent: Diastolic murmur, RRR, Systolic Murmur - GI/Abdominal Exam GI & Abdominal Exam: Normal Bowel Sounds, Soft. absent: Distended, Tenderness - Extremities Exam Extremities exam: Positive for: normal inspection, pedal pulses present ( diminished ) - Neurological Exam Neurological exam: Alert, CN II-XII Intact - Skin Skin Exam: Dry, Intact, Normal Color, Warm Results - Vital Signs Recent Vital Signs: Last Vital Signs Temp 97.8 F 06/18/16 08:00 Pulse 103 H 06/18/16 14:00 Resp 16 06/18/16 14:00 BP 120/63 06/18/16 13:51 Pulse Ox 100 06/18/16 14:00 - Labs Result Diagrams: 06/18/16 06:24 06/18/16 06:27 Labs: Laboratory Results - last 24 hr 06/13/16 06/17/16 06/17/16 16:27 16:47 16:47 WBC 13.8 H RBC 4.11 Hgb 10.7 L Hct 34.9 MCV 85.0 MCH 26.0 L MCHC 30.6 L RDW 22.8 H Plt Count 163 D MPV 8.8 Neut % (Auto) 86.2 H Lymph % (Auto) 4.8 L Pershing % (Auto) 8.2 Eos % (Auto) 0.5 Baso % (Auto) 0.3 Neut # 11.9 H Lymph # 0.7 L Pershing # 1.1 H Eos # 0.1 Baso # 0.0 Neutrophils % (Manual) 84 H Band Neutrophils % Lymphocytes % (Manual) 4 L Monocytes % (Manual) 10 Eosinophils % (Manual) 1 Metamyelocytes % 1 H Platelet Estimate Normal Hypochromasia (manual) Slight Poikilocytosis (manual Slight Anisocytosis (manual) Slight Microcytosis (manual) Slight Macrocytosis (manual) Tear Drop Cells Rhame Cells Puncture Site pCO2 pO2 HCO3 ABG pH ABG Total CO2 ABG O2 Saturation ABG Base Excess ABG Hemoglobin ABG Carboxyhemoglobin POC ABG HHb (Measured) ABG Methemoglobin Oscar Test A-a O2 Difference Respiratory Index Hgb O2 Saturation Mechanical Rate FiO2 Tidal Volume PEEP Sodium 143 Potassium 3.7 Chloride 110 H Carbon Dioxide 22 Anion Gap 14 BUN 52 H Creatinine 1.6 H Est GFR ( Amer) 38 Est GFR (Non-Af Amer) 31 Random Glucose 94 Calcium 6.1 L Phosphorus 4.5 Magnesium 1.7 Total Bilirubin 1.1 AST 14 ALT 16 Alkaline Phosphatase 114 Total Protein 5.1 L Albumin 2.1 L Globulin 2.9 Albumin/Globulin Ratio 0.7 L Pleural Total Protein <3.0 Pleural LDH 2223 Pleural Glucose 144 Pleural Amylase 11 Stool Leukocytes, Qual C. difficile Ag & Toxin 06/17/16 06/17/16 06/18/16 Unknown Unknown 04:15 WBC RBC Hgb Hct MCV MCH MCHC RDW Plt Count MPV Neut % (Auto) Lymph % (Auto) Pershing % (Auto) Eos % (Auto) Baso % (Auto) Neut # Lymph # Pershing # Eos # Baso # Neutrophils % (Manual) Band Neutrophils % Lymphocytes % (Manual) Monocytes % (Manual) Eosinophils % (Manual) Metamyelocytes % Platelet Estimate Hypochromasia (manual) Poikilocytosis (manual Anisocytosis (manual) Microcytosis (manual) Macrocytosis (manual) Tear Drop Cells Rhame Cells Puncture Site Rr pCO2 36 pO2 111 H HCO3 22.7 ABG pH 7.39 ABG Total CO2 22.9 ABG O2 Saturation 99.4 H ABG Base Excess -2.8 L ABG Hemoglobin 10.5 L ABG Carboxyhemoglobin 2.1 H POC ABG HHb (Measured) 0.6 ABG Methemoglobin 1.3 Oscar Test Pos A-a O2 Difference 58.0 Respiratory Index 0.5 Hgb O2 Saturation 96.0 Mechanical Rate 14 FiO2 30.0 Tidal Volume 500 PEEP 5 Sodium Potassium Chloride Carbon Dioxide Anion Gap BUN Creatinine Est GFR ( Amer) Est GFR (Non-Af Amer) Random Glucose Calcium Phosphorus Magnesium Total Bilirubin AST ALT Alkaline Phosphatase Total Protein Albumin Globulin Albumin/Globulin Ratio Pleural Total Protein Pleural LDH Pleural Glucose Pleural Amylase Stool Leukocytes, Qual Negative C. difficile Ag & Toxin Negative 06/18/16 06/18/16 06:24 06:27 WBC 16.0 H RBC 3.90 Hgb 10.2 L Hct 33.3 L MCV 85.3 MCH 26.2 L MCHC 30.8 L RDW 22.5 H Plt Count 173 MPV 8.5 Neut % (Auto) 91.0 H Lymph % (Auto) 3.0 L Pershing % (Auto) 5.0 Eos % (Auto) 1.0 Baso % (Auto) 0.0 Neut # 1.5 L Lymph # 0.1 L Pershing # 0.1 Eos # 0.0 Baso # 0.0 Neutrophils % (Manual) 89 H Band Neutrophils % 2 Lymphocytes % (Manual) 6 L Monocytes % (Manual) 3 Eosinophils % (Manual) Metamyelocytes % Platelet Estimate Normal Hypochromasia (manual) Slight Poikilocytosis (manual Slight Anisocytosis (manual) Slight Microcytosis (manual) Slight Macrocytosis (manual) Slight Tear Drop Cells Slight Jesus Cells Slight Puncture Site pCO2 pO2 HCO3 ABG pH ABG Total CO2 ABG O2 Saturation ABG Base Excess ABG Hemoglobin ABG Carboxyhemoglobin POC ABG HHb (Measured) ABG Methemoglobin Oscar Test A-a O2 Difference Respiratory Index Hgb O2 Saturation Mechanical Rate FiO2 Tidal Volume PEEP Sodium 142 Potassium 3.4 L Chloride 110 H Carbon Dioxide 22 Anion Gap 13 BUN 50 H Creatinine 1.5 H Est GFR ( Amer) 41 Est GFR (Non-Af Amer) 33 Random Glucose 95 Calcium 5.8 L* Phosphorus 4.5 Magnesium 1.6 Total Bilirubin 1.1 AST 14 ALT 16 Alkaline Phosphatase 105 Total Protein 4.6 L Albumin 2.0 L Globulin 2.5 Albumin/Globulin Ratio 0.8 L Pleural Total Protein Pleural LDH Pleural Glucose Pleural Amylase Stool Leukocytes, Qual C. difficile Ag & Toxin Assessment & Plan (1) Preprocedural cardiovascular examination Assessment and Plan: Cardiac Risk Assessment: Tracheostomy- currently the risks of surgery outweigh the benefits - Detsky index score: 20, Class II- moderate risk - Jayce risk index: 1- Low risk - Jackson score: 8, Class II- moderate risk - patient is medically unstable requiring vasopressive medications. - risks of surgery outweigh benefits at this time - will re-evaluate once medically stable to re-assess cardiac risk stratification Echo ordered 06/04/16 EKG: Sinus tachycardia, 109 bpm, normal physiologic axis, mildly prolonged CT interval, prolonged QTc, normal QRS duration, lateral infarct age undetermined (present on EKGs >1year), low voltage QRS 02/25/16 Echo: grade I abnormal relaxation pattern with preserved systolic function. Case Discussed with Dr. Zeeshan Carr PGY1 Status: Acute (2) Ventilator dependent Assessment and Plan: plan for tracheostomy once medically stable and cleared by ICU team intubated 06/11/16 Status: Acute (3) Respiratory failure Status: Acute (4) Diastolic CHF Status: Chronic - Date & Time Date: 06/18/16 Time: 16:29 <Vale Byers - Last Filed: 07/23/16 12:18> Results - Vital Signs Recent Vital Signs: Last Vital Signs Temp 97.4 F L 06/22/16 00:00 Pulse 61 06/22/16 02:00 Resp 14 06/22/16 02:00 BP 66/28 L 06/22/16 02:00 Pulse Ox 20 L 06/22/16 02:00 - Labs Result Diagrams: 06/21/16 06:36 06/21/16 06:36 Attending/Attestation - Attestation I have personally seen and examined this patient.: Yes I have fully participated in the care of the patient.: Yes I have reviewed all pertinent clinical information: Yes
--- NOTE | 2016-06-18 17:00 | CP.PCM.PN ---
Subjective - Date & Time of Evaluation Date of Evaluation: 06/17/16 Time of Evaluation: 10:17 - Subjective Subjective: Patient seen and examined in the intensive care unit. The patient was intubated and not tolerating CPAP Patient is awake and responsive afebrile Chest tube in place and draining fluid Feeding was stopped because of vomiting and abdominal distention Objective - Vital Signs/Intake and Output Vital Signs (last 24 hours): Temp Pulse Resp BP Pulse Ox 97.8 F 126 H 13 104/52 L 100 06/18/16 08:00 06/18/16 16:00 06/18/16 16:00 06/18/16 15:50 06/18/16 16:00 Intake and Output: 06/18/16 06/18/16 06:59 18:59 Intake Total 1946.5 1371.4 Output Total 2635 216 Balance -688.5 1155.4 - Medications Medications: Current Medications Albuterol/Ipratropium (Duoneb 3 Mg/0.5 Mg (3 Ml) Ud) 3 ml INH RQ6 [facility] Last Admin: 06/18/16 13:25 Dose: 3 ml Calcium/Vitamin D (Oyster Shell Calcium/Vitamin D 500 Mg-200 Iu) 1 tab PO DAILY [facility] Last Admin: 06/18/16 09:55 Dose: 1 tab Heparin Sodium (Porcine) (Heparin) 5,000 units SC Q12 [facility] Last Admin: 06/18/16 09:55 Dose: 5,000 units Levetiracetam 500 mg/ Sodium (Chloride) 105 mls @ 420 mls/hr IVPB Q12H [facility] Last Admin: 06/18/16 06:20 Dose: 420 mls/hr Norepinephrine Bitartrate 4 mg (/ Dextrose) 254 mls @ 15.24 mls/hr IV .[id number] PRN; Protocol; 4 MCG/MIN PRN Reason: TITRATE PER MD ORDER Last Titration: 06/18/16 14:06 Dose: 5 mcg/min, 19.05 mls/hr Tigecycline 50 mg/ Sodium (Chloride) 100 mls @ 100 mls/hr IVPB Q12H [facility] Last Admin: 06/18/16 14:15 Dose: 100 mls/hr Dexmedetomidine HCl 200 mcg/ (Sodium Chloride) 50 mls @ 6.51 mls/hr IV TITR PRN ; Protocol; 0.2 MCG/KG/HR PRN Reason: Agitation Last Admin: 06/17/16 01:27 Dose: 0.15 mcg/kg/hr, 4.88 mls/hr Colistimethate Sodium 150 mg/ (Sodium Chloride) 100 mls @ 200 mls/hr IV Q24H [facility] Last Admin: 06/17/16 23:33 Dose: 200 mls/hr Lactated Ringer's (Lactated Ringer's) 1,000 mls @ 100 mls/hr IV .Q10H [facility] Last Admin: 06/18/16 16:38 Dose: 100 mls/hr Metronidazole (Flagyl) 500 mg in 100 mls @ 100 mls/hr IVPB Q8H [facility] Last Admin: 06/18/16 16:39 Dose: 100 mls/hr Methylprednisolone (Solu-Medrol) 20 mg IVP 0600,1800 [facility] Last Admin: 06/18/16 06:20 Dose: 20 mg Pantoprazole Sodium (Protonix Inj) 40 mg IVP DAILY [facility] Last Admin: 06/18/16 09:55 Dose: 40 mg - Labs Labs: 06/18/16 06:24 06/18/16 06:27 PT 14.4 SECONDS (9.7-12.2) H 06/13/16 06:28 INR 1.3 06/13/16 06:28 APTT 34 SECONDS (21-34) 06/13/16 06:28 - Constitutional Appears: In Acute Distress, Chronically Ill - Eye Exam Eye Exam: EOMI, Normal appearance, PERRL Pupil Exam: NORMAL ACCOMODATION, PERRL - Respiratory Exam Respiratory Exam: Decreased Breath Sounds, Rales, Rhonchi - Cardiovascular Exam Cardiovascular Exam: REGULAR RHYTHM, +S1, +S2. absent: Murmur Assessment and Plan (1) UTI (urinary tract infection) Status: Acute (2) Dehydration Status: Acute (3) Hypotension Status: Acute (4) Acute onset sepsis Status: Acute (5) Respiratory failure Status: Acute (6) Hypertension Status: Acute
--- NOTE | 2016-06-18 17:03 | CP.PCM.PN ---
Subjective - Date & Time of Evaluation Date of Evaluation: 06/18/16 Time of Evaluation: 10:17 - Subjective Subjective: Patient seen and examined at bedside in the ICU. She remains intubated, on Peep 5, FIO2 30%. She is alert and follows commands. She continues to have high volume output from OG tube. She is on pressors, 8mcg of Norepinephrine. Chest tube remains on suction, with 320cc serosanguinous drainage over past 24 hours Objective - Vital Signs/Intake and Output Vital Signs (last 24 hours): Temp Pulse Resp BP Pulse Ox 97.8 F 126 H 13 104/52 L 100 06/18/16 08:00 06/18/16 16:00 06/18/16 16:00 06/18/16 15:50 06/18/16 16:00 Intake and Output: 06/18/16 06/18/16 06:59 18:59 Intake Total 1946.5 1371.4 Output Total 2635 216 Balance -688.5 1155.4 - Medications Medications: Current Medications Albuterol/Ipratropium (Duoneb 3 Mg/0.5 Mg (3 Ml) Ud) 3 ml INH RQ6 [facility] Last Admin: 06/18/16 13:25 Dose: 3 ml Calcium/Vitamin D (Oyster Shell Calcium/Vitamin D 500 Mg-200 Iu) 1 tab PO DAILY [facility] Last Admin: 06/18/16 09:55 Dose: 1 tab Heparin Sodium (Porcine) (Heparin) 5,000 units SC Q12 [facility] Last Admin: 06/18/16 09:55 Dose: 5,000 units Levetiracetam 500 mg/ Sodium (Chloride) 105 mls @ 420 mls/hr IVPB Q12H [facility] Last Admin: 06/18/16 06:20 Dose: 420 mls/hr Norepinephrine Bitartrate 4 mg (/ Dextrose) 254 mls @ 15.24 mls/hr IV .[id number] PRN; Protocol; 4 MCG/MIN PRN Reason: TITRATE PER MD ORDER Last Titration: 06/18/16 14:06 Dose: 5 mcg/min, 19.05 mls/hr Tigecycline 50 mg/ Sodium (Chloride) 100 mls @ 100 mls/hr IVPB Q12H [facility] Last Admin: 06/18/16 14:15 Dose: 100 mls/hr Dexmedetomidine HCl 200 mcg/ (Sodium Chloride) 50 mls @ 6.51 mls/hr IV TITR PRN ; Protocol; 0.2 MCG/KG/HR PRN Reason: Agitation Last Admin: 06/17/16 01:27 Dose: 0.15 mcg/kg/hr, 4.88 mls/hr Colistimethate Sodium 150 mg/ (Sodium Chloride) 100 mls @ 200 mls/hr IV Q24H [facility] Last Admin: 06/17/16 23:33 Dose: 200 mls/hr Lactated Ringer's (Lactated Ringer's) 1,000 mls @ 100 mls/hr IV .Q10H [facility] Last Admin: 06/18/16 16:38 Dose: 100 mls/hr Metronidazole (Flagyl) 500 mg in 100 mls @ 100 mls/hr IVPB Q8H [facility] Last Admin: 06/18/16 16:39 Dose: 100 mls/hr Methylprednisolone (Solu-Medrol) 20 mg IVP 0600,1800 [facility] Last Admin: 06/18/16 06:20 Dose: 20 mg Pantoprazole Sodium (Protonix Inj) 40 mg IVP DAILY [facility] Last Admin: 06/18/16 09:55 Dose: 40 mg - Labs Labs: 06/18/16 06:24 06/18/16 06:27 PT 14.4 SECONDS (9.7-12.2) H 06/13/16 06:28 INR 1.3 06/13/16 06:28 APTT 34 SECONDS (21-34) 06/13/16 06:28 - Constitutional Appears: No Acute Distress, Chronically Ill - Head Exam Head Exam: ATRAUMATIC, NORMAL INSPECTION, NORMOCEPHALIC - Eye Exam Eye Exam: EOMI, Normal appearance, PERRL Pupil Exam: NORMAL ACCOMODATION, PERRL - Respiratory Exam Respiratory Exam: Decreased Breath Sounds, Rales, Rhonchi - Cardiovascular Exam Cardiovascular Exam: REGULAR RHYTHM, +S1, +S2. absent: Murmur - GI/Abdominal Exam GI & Abdominal Exam: Soft, Normal Bowel Sounds. absent: Tenderness Assessment and Plan (1) UTI (urinary tract infection) Status: Acute (2) Dehydration Status: Acute (3) Hypotension Status: Acute (4) Acute onset sepsis Status: Acute (5) Respiratory failure Status: Acute (6) Hypertension Status: Acute
[2016-06-18 21:50] LABS: RBC URINE 6 /hpf (0-3); URINE BACTERIA MOD (<OCC); WBC URINE 16 /hpf (0-5)
[2016-06-18 21:57] LABS: URINE BILIRUBIN NEGATIVE (NEGATIVE); URINE BLOOD 1+ (NEGATIVE); URINE COLOR Yellow (YELLOW); URINE GLUCOSE (UA) 1+ mg/dL (Normal); URINE KETONE TRACE mg/dL (NEGATIVE); URINE LEUKOCYTE ESTERASE 1+ Leu/uL (Negative); URINE PROTEIN 2+ mg/dL (NEGATIVE)
--- NOTE | 2016-06-18 23:00 | CP.PCM.PN ---
Subjective - Date & Time of Evaluation Date of Evaluation: 06/18/16 Time of Evaluation: 23:00 - Subjective Subjective: afebrile,AWAKE ON VENTILATOR ON PRESSORS, TACHYCARDIC NGT - BILIOUS DRAINGE. S/P LT. CHEST TUBE DRAINING SEROSANGUINEOUS DRAINAGE. s/p RT IJ CATHETER PLACED 06/11/16 ROS. HEENT : N.head tilted to the left. OGT -DRAINING BILIOUS DRAINAGE Resp : No cough, wheezing ,pleuritic CP ,or hemoptysis LT. CT IN PLACE. Cardio : TACHYCARDIC GI : ABDOMEN DISTENDED, n/v ,diarrhea or GI bleeding . [employer] : No headache, vertigo, focal deficit. Musculoskel : No joint swelling , Derm : No rash Psych : Normal affect. Ext : No swelling ,calf pain PE. Pt. is alert awake in no distress.ON VENTILATOR V.S As noted in the chart Head ,ear nose,throat and eyes : Normal. Neck : Supple with normal carotids. Lungs: RHONCHI B/L +VE LT CHEST TUBE IN PLACE Heart : S1 & S2 normal with S4. No murmur.TACHYCARDIC Abd : Soft , DISTENDED BS HYPOACTIVE. Neuro : Moves all ext. with no localized deficit. Ext : + EDEMA with intact pulses.Non tender calves Derm : No rashes or decubitus ulcer. LABS/RADIOLOGY: wbc 16.0 H/H 10.2 cREATININE 1.5/bun 50 pleural fluid 06/16/16 FINDINGS NOTED -POST TRAUMATIC-HGIC,T.DC <3.0, GLUCOSE N - LDH HIGH STOOL C. DIFFICILE NEGATIVE urine culture repeat negative growth bronchial washings +ve Acinetobacter Baumanni SPUTUM CULTURE+VE ACINETOBACTER BOUMANNI S - tYGACIL bLOOD CULTURES 06/13/16 -VE .LFTS 06/17 N .. URINE CULTURE +VE PROTEUS MIRABILIS -MDR ASSESSMENT/PLAN : IMPRESSION; -RESPIRATORY FAILURE/ VAP/HAP -[id number] -S/P LEFT-SIDED THORACENTESIS/ chest tube 06/13 - SEPSIS- SYNDROME /HYPOTENSION - [id number]-RESISTANT PROTEUS MIRABILIS -CHF - ?/SBO VS ILEUS -DM. -HX MANISH- MASTOIDITIS/CHOLESTEATOMA. PLAN; DC IV VANCOMYCIN.06/13 ON IV tYGACIL 100 MG LOADING DOSE FOLLOWED BY 50 EVERY 12 HOURLY.06/14 ON IV Colistin 150 mg every 24 hourly. 06/16/16 NOTED FLAGYL 500MG IV Q8HRLY ADDED 06/17/16 mONITOR RENAL FUNCTIONS CLOSELY. pulmonary toilet. Objective - Vital Signs/Intake and Output Vital Signs (last 24 hours): Temp Pulse Resp BP Pulse Ox 97 F L 110 H 14 90/57 L 97 06/18/16 16:00 06/18/16 19:00 06/18/16 19:00 06/18/16 18:51 06/18/16 19:00 Intake and Output: 06/18/16 06/19/16 18:59 06:59 Intake Total 1571.4 Output Total 976 Balance 595.4 - Medications Medications: Current Medications Albuterol/Ipratropium (Duoneb 3 Mg/0.5 Mg (3 Ml) Ud) 3 ml INH RQ6 [facility] Last Admin: 06/18/16 19:13 Dose: 3 ml Calcium/Vitamin D (Oyster Shell Calcium/Vitamin D 500 Mg-200 Iu) 1 tab PO DAILY [facility] Last Admin: 06/18/16 09:55 Dose: 1 tab Heparin Sodium (Porcine) (Heparin) 5,000 units SC Q12 [facility] Last Admin: 06/18/16 21:55 Dose: 5,000 units Levetiracetam 500 mg/ Sodium (Chloride) 105 mls @ 420 mls/hr IVPB Q12H [facility] Last Admin: 06/18/16 18:00 Dose: 420 mls/hr Norepinephrine Bitartrate 4 mg (/ Dextrose) 254 mls @ 15.24 mls/hr IV .[id number] PRN; Protocol; 4 MCG/MIN PRN Reason: TITRATE PER MD ORDER Last Titration: 06/18/16 14:06 Dose: 5 mcg/min, 19.05 mls/hr Tigecycline 50 mg/ Sodium (Chloride) 100 mls @ 100 mls/hr IVPB Q12H [facility] Last Admin: 06/18/16 14:15 Dose: 100 mls/hr Dexmedetomidine HCl 200 mcg/ (Sodium Chloride) 50 mls @ 6.51 mls/hr IV TITR PRN ; Protocol; 0.2 MCG/KG/HR PRN Reason: Agitation Last Admin: 06/17/16 01:27 Dose: 0.15 mcg/kg/hr, 4.88 mls/hr Colistimethate Sodium 150 mg/ (Sodium Chloride) 100 mls @ 200 mls/hr IV Q24H [facility] Last Admin: 06/17/16 23:33 Dose: 200 mls/hr Lactated Ringer's (Lactated Ringer's) 1,000 mls @ 100 mls/hr IV .Q10H [facility] Last Admin: 06/18/16 16:38 Dose: 100 mls/hr Metronidazole (Flagyl) 500 mg in 100 mls @ 100 mls/hr IVPB Q8H [facility] Last Admin: 06/18/16 16:39 Dose: 100 mls/hr Methylprednisolone (Solu-Medrol) 20 mg IVP 0600,1800 [facility] Last Admin: 06/18/16 18:00 Dose: 20 mg Pantoprazole Sodium (Protonix Inj) 40 mg IVP DAILY [facility] Last Admin: 06/18/16 09:55 Dose: 40 mg - Labs Labs: 06/18/16 06:24 06/18/16 06:27 PT 14.4 SECONDS (9.7-12.2) H 06/13/16 06:28 INR 1.3 06/13/16 06:28 APTT 34 SECONDS (21-34) 06/13/16 06:28 Assessment and Plan (1) UTI (urinary tract infection) Status: Acute (2) Dehydration Status: Acute (3) Acute respiratory failure Status: Acute (4) COPD (chronic obstructive pulmonary disease) Status: Acute (5) Hypotension Status: Acute (6) Acute onset sepsis Status: Acute
[2016-06-19] MEDS: Albuterol-Ipratrop 3 mg / 0.5 (3 ml) UD INH SCH ×4 (02:11→19:25)
[2016-06-19] MEDS: Lactated Ringer's 1,000 ML IV SCH ×2 (03:45→08:00)
[2016-06-19] MEDS: levETIRAcetam 500 MG in Sodium Chloride 0.9% 100 ML IVPB SCH ×2 (05:30→17:34)
[2016-06-19] MEDS: MethylPREDNISolone 40 mg Vial IVP SCH (05:35)
[2016-06-19 05:46] LABS: ABG ALLEN TEST POS; ABG MECHANICAL RATE 14; ARTERIAL BLOOD HGB O2 SAT 95.9 % (95.0-98.0); ATERIAL BLOOD GAS PEEP 5; CARBOXYHEMOGLOBIN 2.1 % (0.5-1.5); DRAW SITE RR; HHB 0.9 % (0.0-5.0); METHEMOGLOBIN 1.1 % (0.0-3.0)
[2016-06-19 06:39] LABS: HEMATOCRIT 34.4 % (34.0-47.0); MEAN CELL VOLUME 85.5 fL (81.0-99.0); MEAN CORPUSCULAR HEMOGLOBIN 26.1 pg (27.0-31.0); MEAN CORPUSCULAR HGB CONC 30.6 g/dL (33.0-37.0); MEAN PLATELET VOLUME 8.9 fL (7.2-11.7); PLATELET COUNT 177 K/uL (130-400); RED CELL DISTRIBUTION WIDTH 22.1 % (11.5-14.5); WHITE BLOOD COUNT 16.1 K/uL (4.8-10.8)
[2016-06-19 06:43] LABS: POTASSIUM 3.2 mmol/L (3.6-5.2)
[2016-06-19 06:45] LABS: ALB/GLOB RATIO 0.8 (1.0-2.1); BILIRUBIN,TOTAL 1.2 mg/dL (0.2-1.3); TOTAL PROTEIN 4.8 g/dL (6.3-8.3)
[2016-06-19 06:46] LABS: CALCIUM 6.2 mg/dl (8.6-10.4); MAGNESIUM 1.6 mg/dL (1.6-2.3); PHOSPHOROUS 4.7 mg/dL (2.5-4.5)
[2016-06-19] MEDS: metroNIDAZOLE IV 500 mg/100 ml 500 MG/100 ML BAG IVPB SCH ×3 (08:50→15:52)
--- NOTE | 2016-06-19 08:57 | CP.CCUPN ---
<Nancy Morocho - Last Filed: 06/19/16 11:12> CCU Subjective - Physician Review Subjective (Free Text): Patient was seen and examined at bedside. Intubated PRVC settings: RR14, FiO2 30 %, PEEP 5, Tvolume 500, not on levophed since yesterday evening. Will try CPAP trial to wean patient. Continued on Solumedrol 20mg IVP BID Patient was unable to tolerate being weaned this weekend, failed two CPAP trials. Bronchial washings showed Achinetobacter Baumannii patient is currently on Coly-Mycin and Tygacil as per Dr. Cantrell. Marrufo was changed 06/18/16, UA and urine culture ordered Patient had bilious output of 300cc past 12 hours. Abdominal xray was ordered showed dilated loops of bowel. Patient started on Flagyl, stool studies ordered. Chest tube: 160cc / 12hrs Plan for CPAP trial today, with goals to extubate. CT Abdomen and Pelvis with PO contrast ordered. CCU Objective - Vital Signs / Intake & Output Vital Signs (Last 4 hours): Vital Signs Temp Pulse Resp BP Pulse Ox 06/19/16 08:01 101 H 14 97/49 L 99 06/19/16 08:00 97.4 F L 111 H 14 100 06/19/16 07:01 91/37 L 06/19/16 07:00 109 H 15 100 06/19/16 06:01 116 H 14 98/40 L 100 06/19/16 05:02 134 H 17 107/61 96 Intake and Output (Last 8hrs): Intake & Output 06/18/16 06/19/16 06/19/16 22:59 06:59 14:59 Intake Total 800 800 200 Output Total 845 530 60 Balance -45 270 140 Weight 284 lb Intake: Intake, IV Amount 800 800 200 Right Proximal Port 400 800 200 Internal Jugular right medial 400 Output: Chest Tube Drainage 50 130 30 Left Lateral Chest 50 130 30 Gastric Amount 700 300 30 Stomach 700 300 30 Urine 95 100 Urethral (Marrufo) 95 100 Other: # Bowel Movements 1 1 - Physical Exam Head: Positive for: Atraumatic, Normocephalic Pupils: Positive for: PERRL Extroacular Muscles: Positive for: EOMI Conjunctiva: Positive for: Normal Mouth: Positive for: Moist Mucous Membranes Respiratory/Chest: Positive for: Decreased Breath Sounds, Other (INTUBATED ) Cardiovascular: Positive for: Tachycardic Upper Extremity: Positive for: Normal Inspection, NORMAL PULSES. Negative for: Cyanosis, Edema Lower Extremity: Positive for: Normal Inspection, NORMAL PULSES. Negative for: Edema, CALF TENDERNESS Neurological: Positive for: GCS=15, CN II-XII Intact Skin: Positive for: Warm, Dry Psychiatric: Positive for: Alert, Oriented x 3 - Medications Active Medications: Active Medications Generic Name Dose Route Start Last Admin Trade Name Freq PRN Reason Stop Dose Admin Albuterol/Ipratropium 3 ml 06/11/16 10:45 06/19/16 07:40 Duoneb 3 Mg/0.5 Mg (3 Ml) Ud INH 3 ml RQ6 SHARIF Administration Calcium/Vitamin D 1 tab 06/18/16 10:00 06/18/16 09:55 Oyster Shell Calcium/Vitamin D 500 Mg-200 Iu PO 1 tab DAILY SHARIF Administration Heparin Sodium (Porcine) 5,000 units 06/17/16 10:00 06/18/16 21:55 Heparin SC 5,000 units Q12 SHARIF Administration Levetiracetam 500 mg/ Sodium 105 mls @ 420 mls/hr 06/07/16 18:30 06/19/16 05: 30 Chloride IVPB 420 mls/hr Q12H SHARIF Administration Norepinephrine Bitartrate 4 mg 254 mls @ 15.24 mls/hr 06/11/16 16:25 14:06 / Dextrose IV 5 mcg/min .[id number] PRN 19.05 mls/hr TITRATE PER MD ORDER Titration Protocol 4 MCG/MIN Tigecycline 50 mg/ Sodium 100 mls @ 100 mls/hr 06/15/16 02:00 06/19/16 03:00 Chloride IVPB 100 mls/hr Q12H SHARIF Administration Dexmedetomidine HCl 200 mcg/ 50 mls @ 6.51 mls/hr 06/15/16 22:00 06/17/16 01: 27 Sodium Chloride IV 0.15 mcg/kg/hr TITR PRN 4.88 mls/hr Agitation Administration Protocol 0.2 MCG/KG/HR Colistimethate Sodium 150 mg/ 100 mls @ 200 mls/hr 06/17/16 00:00 06/19/16 01 :00 Sodium Chloride IV 200 mls/hr Q24H SHARIF Administration Lactated Ringer's 1,000 mls @ 100 mls/hr 06/17/16 11:45 06/19/16 03:45 Lactated Ringer's IV Not Given .Q10H SHARIF Metronidazole 500 mg in 100 mls @ 100 mls/hr 06/18/16 00:00 06/19/16 00:00 Flagyl IVPB 100 mls/hr Q8H SHARIF Administration Methylprednisolone 20 mg 06/15/16 18:00 06/19/16 05:35 Solu-Medrol IVP 20 mg 0600,1800 SHARIF Administration Pantoprazole Sodium 40 mg 06/05/16 10:00 06/18/16 09:55 Protonix Inj IVP 40 mg DAILY SHARIF Administration Potassium Chloride 40 meq 06/19/16 10:00 Potassium Chloride Oral Soln PO 06/20/16 10:01 BID SHARIF - Patient Studies Lab Studies: Microbiology Studies 06/16/16 22:40 Blood Culture - Preliminary Blood-Thru Central Line NO GROWTH AFTER 48 HOURS 06/16/16 23:45 Blood Culture - Preliminary Blood-Thru Central Line NO GROWTH AFTER 48 HOURS Lab Studies 06/19/16 06/19/16 06/19/16 Range/Units 06:24 06:24 05:37 WBC 16.1 H (4.8-10.8) K/uL RBC 4.02 (3.80-5.20) Mil/uL Hgb 10.5 L (11.0-16.0) g/dL Hct 34.4 (34.0-47.0) % MCV 85.5 (81.0-99.0) fL MCH 26.1 L (27.0-31.0) pg MCHC 30.6 L (33.0-37.0) g/dL RDW 22.1 H (11.5-14.5) % Plt Count 177 (130-400) K/uL MPV 8.9 (7.2-11.7) fL Neut % (Auto) (50.0-75.0) % Lymph % (Auto) (20.0-40.0) % [place] % (Auto) (0.0-10.0) % Eos % (Auto) (0.0-4.0) % Baso % (Auto) (0.0-2.0) % Neut # (1.8-7.0) K/uL Lymph # (1.0-4.3) K/uL [place] # (0.0-0.8) K/uL Eos # (0.0-0.7) K/uL Baso # (0.0-0.2) K/uL Neutrophils % (Manual) (50-75) % Band Neutrophils % (0-2) % Lymphocytes % (Manual) (20-40) % Monocytes % (Manual) (0-10) % Platelet Estimate (NORMAL) Hypochromasia (manual) Poikilocytosis (manual Anisocytosis (manual) Microcytosis (manual) Macrocytosis (manual) Tear Drop Cells Jesus Cells Puncture Site Rr pCO2 34 L (35-45) mm/Hg pO2 93 (80-100) mm/Hg HCO3 21.5 (21-28) mmol/L ABG pH 7.38 (7.35-7.45) ABG Total CO2 21.1 L (22-28) mmol/L ABG O2 Saturation 99.1 H (95-98) % ABG Base Excess -4.4 L (-2.0-3.0) mmol/L ABG Hemoglobin 9.7 L (11.7-17.4) g/dL ABG Carboxyhemoglobin 2.1 H (0.5-1.5) % POC ABG HHb (Measured) 0.9 (0.0-5.0) % ABG Methemoglobin 1.1 (0.0-3.0) % Oscar Test Pos A-a O2 Difference 78.0 mm/Hg Respiratory Index 0.8 Hgb O2 Saturation 95.9 (95.0-98.0) % Mechanical Rate 14 FiO2 30.0 % Tidal Volume 500 PEEP 5 Sodium 144 (132-148) mmol/L Potassium 3.2 L (3.6-5.2) mmol/L Chloride 110 H (98-107) mmol/L Carbon Dioxide 23 (22-30) mmol/L Anion Gap 14 (10-20) BUN 50 H (7-17) mg/dL Creatinine 1.7 H (0.7-1.2) MG/DL Est GFR ( Amer) 35 Est GFR (Non-Af Amer) 29 Random Glucose 71 (65-105) mg/dL Calcium 6.2 L (8.6-10.4) mg/dl Phosphorus 4.7 H (2.5-4.5) mg/dL Magnesium 1.6 (1.6-2.3) mg/dL Total Bilirubin 1.2 (0.2-1.3) mg/dL AST 16 (14-36) U/L ALT 16 (9-52) U/L Alkaline Phosphatase 105 (38-126) U/L Total Protein 4.8 L (6.3-8.3) g/dL Albumin 2.1 L (3.5-5.0) g/dL Globulin 2.8 (2.2-3.9) gm/dL Albumin/Globulin Ratio 0.8 L (1.0-2.1) Urine Color (YELLOW) Urine Clarity (Clear) Urine pH (5.0-8.0) Ur Specific [place] (1.003-1.030) Urine Protein (NEGATIVE) mg/dL Urine Glucose (UA) (Normal) mg/dL Urine Ketones (NEGATIVE) mg/dL Urine Blood (NEGATIVE) Urine Nitrate (NEGATIVE) Urine Bilirubin (NEGATIVE) Urine Urobilinogen (0.2-1.0) mg/dL Ur Leukocyte Esterase (Negative) Dominique/uL Urine WBC (Auto) (0-5) /hpf Urine RBC (Auto) (0-3) /hpf Ur Squamous Epith Cells (0-5) /hpf Amorphous Sediment (<OCC) /ul Urine Bacteria (<OCC) Stool Leukocytes, Qual (NEGATIVE) C. difficile Ag & Toxin (NEGATIVE) 06/18/16 06/18/16 06/17/16 Range/Units 18:27 06:24 Unknown WBC (4.8-10.8) K/uL RBC (3.80-5.20) Mil/uL Hgb (11.0-16.0) g/dL Hct (34.0-47.0) % MCV (81.0-99.0) fL MCH (27.0-31.0) pg MCHC (33.0-37.0) g/dL RDW (11.5-14.5) % Plt Count (130-400) K/uL MPV (7.2-11.7) fL Neut % (Auto) 91.0 H (50.0-75.0) % Lymph % (Auto) 3.0 L (20.0-40.0) % [place] % (Auto) 5.0 (0.0-10.0) % Eos % (Auto) 1.0 (0.0-4.0) % Baso % (Auto) 0.0 (0.0-2.0) % Neut # 1.5 L (1.8-7.0) K/uL Lymph # 0.1 L (1.0-4.3) K/uL [place] # 0.1 (0.0-0.8) K/uL Eos # 0.0 (0.0-0.7) K/uL Baso # 0.0 (0.0-0.2) K/uL Neutrophils % (Manual) 89 H (50-75) % Band Neutrophils % 2 (0-2) % Lymphocytes % (Manual) 6 L (20-40) % Monocytes % (Manual) 3 (0-10) % Platelet Estimate Normal (NORMAL) Hypochromasia (manual) Slight Poikilocytosis (manual Slight Anisocytosis (manual) Slight Microcytosis (manual) Slight Macrocytosis (manual) Slight Tear Drop Cells Slight Jesus Cells Slight Puncture Site pCO2 (35-45) mm/Hg pO2 (80-100) mm/Hg HCO3 (21-28) mmol/L ABG pH (7.35-7.45) ABG Total CO2 (22-28) mmol/L ABG O2 Saturation (95-98) % ABG Base Excess (-2.0-3.0) mmol/L ABG Hemoglobin (11.7-17.4) g/dL ABG Carboxyhemoglobin (0.5-1.5) % POC ABG HHb (Measured) (0.0-5.0) % ABG Methemoglobin (0.0-3.0) % Oscar Test A-a O2 Difference mm/Hg Respiratory Index Hgb O2 Saturation (95.0-98.0) % Mechanical Rate FiO2 % Tidal Volume PEEP Sodium (132-148) mmol/L Potassium (3.6-5.2) mmol/L Chloride (98-107) mmol/L Carbon Dioxide (22-30) mmol/L Anion Gap (10-20) BUN (7-17) mg/dL Creatinine (0.7-1.2) MG/DL Est GFR ( Amer) Est GFR (Non-Af Amer) Random Glucose (65-105) mg/dL Calcium (8.6-10.4) mg/dl Phosphorus (2.5-4.5) mg/dL Magnesium (1.6-2.3) mg/dL Total Bilirubin (0.2-1.3) mg/dL AST (14-36) U/L ALT (9-52) U/L Alkaline Phosphatase (38-126) U/L Total Protein (6.3-8.3) g/dL Albumin (3.5-5.0) g/dL Globulin (2.2-3.9) gm/dL Albumin/Globulin Ratio (1.0-2.1) Urine Color Yellow (YELLOW) Urine Clarity Hazy (Clear) Urine pH 5.0 (5.0-8.0) Ur Specific [place] 1.009 (1.003-1.030) Urine Protein 2+ H (NEGATIVE) mg/dL Urine Glucose (UA) 1+ (Normal) mg/dL Urine Ketones Trace (NEGATIVE) mg/dL Urine Blood 1+ H (NEGATIVE) Urine Nitrate Negative (NEGATIVE) Urine Bilirubin Negative (NEGATIVE) Urine Urobilinogen 2.0 H (0.2-1.0) mg/dL Ur Leukocyte Esterase 1+ H (Negative) Dominique/uL Urine WBC (Auto) 16 H (0-5) /hpf Urine RBC (Auto) 6 H (0-3) /hpf Ur Squamous Epith Cells 4 (0-5) /hpf Amorphous Sediment Rare H (<OCC) /ul Urine Bacteria Mod H (<OCC) Stool Leukocytes, Qual Negative (NEGATIVE) C. difficile Ag & Toxin (NEGATIVE) 06/17/16 Range/Units Unknown WBC (4.8-10.8) K/uL RBC (3.80-5.20) Mil/uL Hgb (11.0-16.0) g/dL Hct (34.0-47.0) % MCV (81.0-99.0) fL MCH (27.0-31.0) pg MCHC (33.0-37.0) g/dL RDW (11.5-14.5) % Plt Count (130-400) K/uL MPV (7.2-11.7) fL Neut % (Auto) (50.0-75.0) % Lymph % (Auto) (20.0-40.0) % [place] % (Auto) (0.0-10.0) % Eos % (Auto) (0.0-4.0) % Baso % (Auto) (0.0-2.0) % Neut # (1.8-7.0) K/uL Lymph # (1.0-4.3) K/uL [place] # (0.0-0.8) K/uL Eos # (0.0-0.7) K/uL Baso # (0.0-0.2) K/uL Neutrophils % (Manual) (50-75) % Band Neutrophils % (0-2) % Lymphocytes % (Manual) (20-40) % Monocytes % (Manual) (0-10) % Platelet Estimate (NORMAL) Hypochromasia (manual) Poikilocytosis (manual Anisocytosis (manual) Microcytosis (manual) Macrocytosis (manual) Tear Drop Cells [place] Cells Puncture Site pCO2 (35-45) mm/Hg pO2 (80-100) mm/Hg HCO3 (21-28) mmol/L ABG pH (7.35-7.45) ABG Total CO2 (22-28) mmol/L ABG O2 Saturation (95-98) % ABG Base Excess (-2.0-3.0) mmol/L ABG Hemoglobin (11.7-17.4) g/dL ABG Carboxyhemoglobin (0.5-1.5) % POC ABG HHb (Measured) (0.0-5.0) % ABG Methemoglobin (0.0-3.0) % Oscar Test A-a O2 Difference mm/Hg Respiratory Index Hgb O2 Saturation (95.0-98.0) % Mechanical Rate FiO2 % Tidal Volume PEEP Sodium (132-148) mmol/L Potassium (3.6-5.2) mmol/L Chloride (98-107) mmol/L Carbon Dioxide (22-30) mmol/L Anion Gap (10-20) BUN (7-17) mg/dL Creatinine (0.7-1.2) MG/DL Est GFR ( Amer) Est GFR (Non-Af Amer) Random Glucose (65-105) mg/dL Calcium (8.6-10.4) mg/dl Phosphorus (2.5-4.5) mg/dL Magnesium (1.6-2.3) mg/dL Total Bilirubin (0.2-1.3) mg/dL AST (14-36) U/L ALT (9-52) U/L Alkaline Phosphatase (38-126) U/L Total Protein (6.3-8.3) g/dL Albumin (3.5-5.0) g/dL Globulin (2.2-3.9) gm/dL Albumin/Globulin Ratio (1.0-2.1) Urine Color (YELLOW) Urine Clarity (Clear) Urine pH (5.0-8.0) Ur Specific [place] (1.003-1.030) Urine Protein (NEGATIVE) mg/dL Urine Glucose (UA) (Normal) mg/dL Urine Ketones (NEGATIVE) mg/dL Urine Blood (NEGATIVE) Urine Nitrate (NEGATIVE) Urine Bilirubin (NEGATIVE) Urine Urobilinogen (0.2-1.0) mg/dL Ur Leukocyte Esterase (Negative) Dominique/uL Urine WBC (Auto) (0-5) /hpf Urine RBC (Auto) (0-3) /hpf Ur Squamous Epith Cells (0-5) /hpf Amorphous Sediment (<OCC) /ul Urine Bacteria (<OCC) Stool Leukocytes, Qual (NEGATIVE) C. difficile Ag & Toxin Negative (NEGATIVE) Laboratory Results - last 24 hr 06/17/16 06/17/16 06/18/16 Unknown Unknown 06:24 WBC RBC Hgb Hct MCV MCH MCHC RDW Plt Count MPV Neut % (Auto) 91.0 H Lymph % (Auto) 3.0 L [place] % (Auto) 5.0 Eos % (Auto) 1.0 Baso % (Auto) 0.0 Neut # 1.5 L Lymph # 0.1 L [place] # 0.1 Eos # 0.0 Baso # 0.0 Neutrophils % (Manual) 89 H Band Neutrophils % 2 Lymphocytes % (Manual) 6 L Monocytes % (Manual) 3 Platelet Estimate Normal Hypochromasia (manual) Slight Poikilocytosis (manual Slight Anisocytosis (manual) Slight Microcytosis (manual) Slight Macrocytosis (manual) Slight Tear Drop Cells Slight Jesus Cells Slight Puncture Site pCO2 pO2 HCO3 ABG pH ABG Total CO2 ABG O2 Saturation ABG Base Excess ABG Hemoglobin ABG Carboxyhemoglobin POC ABG HHb (Measured) ABG Methemoglobin Oscar Test A-a O2 Difference Respiratory Index Hgb O2 Saturation Mechanical Rate FiO2 Tidal Volume PEEP Sodium Potassium Chloride Carbon Dioxide Anion Gap BUN Creatinine Est GFR ( Amer) Est GFR (Non-Af Amer) Random Glucose Calcium Phosphorus Magnesium Total Bilirubin AST ALT Alkaline Phosphatase Total Protein Albumin Globulin Albumin/Globulin Ratio Urine Color Urine Clarity Urine pH Ur Specific [place] Urine Protein Urine Glucose (UA) Urine Ketones Urine Blood Urine Nitrate Urine Bilirubin Urine Urobilinogen Ur Leukocyte Esterase Urine WBC (Auto) Urine RBC (Auto) Ur Squamous Epith Cells Amorphous Sediment Urine Bacteria Stool Leukocytes, Qual Negative C. difficile Ag & Toxin Negative 06/18/16 06/19/16 06/19/16 18:27 05:37 06:24 WBC 16.1 H RBC 4.02 Hgb 10.5 L Hct 34.4 MCV 85.5 MCH 26.1 L MCHC 30.6 L RDW 22.1 H Plt Count 177 MPV 8.9 Neut % (Auto) Lymph % (Auto) [place] % (Auto) Eos % (Auto) Baso % (Auto) Neut # Lymph # [place] # Eos # Baso # Neutrophils % (Manual) Band Neutrophils % Lymphocytes % (Manual) Monocytes % (Manual) Platelet Estimate Hypochromasia (manual) Poikilocytosis (manual Anisocytosis (manual) Microcytosis (manual) Macrocytosis (manual) Tear Drop Cells Jesus Cells Puncture Site Rr pCO2 34 L pO2 93 HCO3 21.5 ABG pH 7.38 ABG Total CO2 21.1 L ABG O2 Saturation 99.1 H ABG Base Excess -4.4 L ABG Hemoglobin 9.7 L ABG Carboxyhemoglobin 2.1 H POC ABG HHb (Measured) 0.9 ABG Methemoglobin 1.1 Oscar Test Pos A-a O2 Difference 78.0 Respiratory Index 0.8 Hgb O2 Saturation 95.9 Mechanical Rate 14 FiO2 30.0 Tidal Volume 500 PEEP 5 Sodium Potassium Chloride Carbon Dioxide Anion Gap BUN Creatinine Est GFR ( Amer) Est GFR (Non-Af Amer) Random Glucose Calcium Phosphorus Magnesium Total Bilirubin AST ALT Alkaline Phosphatase Total Protein Albumin Globulin Albumin/Globulin Ratio Urine Color Yellow Urine Clarity Hazy Urine pH 5.0 Ur Specific [place] 1.009 Urine Protein 2+ H Urine Glucose (UA) 1+ Urine Ketones Trace Urine Blood 1+ H Urine Nitrate Negative Urine Bilirubin Negative Urine Urobilinogen 2.0 H Ur Leukocyte Esterase 1+ H Urine WBC (Auto) 16 H Urine RBC (Auto) 6 H Ur Squamous Epith Cells 4 Amorphous Sediment Rare H Urine Bacteria Mod H Stool Leukocytes, Qual C. difficile Ag & Toxin 06/19/16 06:24 WBC RBC Hgb Hct MCV MCH MCHC RDW Plt Count MPV Neut % (Auto) Lymph % (Auto) [place] % (Auto) Eos % (Auto) Baso % (Auto) Neut # Lymph # [place] # Eos # Baso # Neutrophils % (Manual) Band Neutrophils % Lymphocytes % (Manual) Monocytes % (Manual) Platelet Estimate Hypochromasia (manual) Poikilocytosis (manual Anisocytosis (manual) Microcytosis (manual) Macrocytosis (manual) Tear Drop Cells [place] Cells Puncture Site pCO2 pO2 HCO3 ABG pH ABG Total CO2 ABG O2 Saturation ABG Base Excess ABG Hemoglobin ABG Carboxyhemoglobin POC ABG HHb (Measured) ABG Methemoglobin Oscar Test A-a O2 Difference Respiratory Index Hgb O2 Saturation Mechanical Rate FiO2 Tidal Volume PEEP Sodium 144 Potassium 3.2 L Chloride 110 H Carbon Dioxide 23 Anion Gap 14 BUN 50 H Creatinine 1.7 H Est GFR ( Amer) 35 Est GFR (Non-Af Amer) 29 Random Glucose 71 Calcium 6.2 L Phosphorus 4.7 H Magnesium 1.6 Total Bilirubin 1.2 AST 16 ALT 16 Alkaline Phosphatase 105 Total Protein 4.8 L Albumin 2.1 L Globulin 2.8 Albumin/Globulin Ratio 0.8 L Urine Color Urine Clarity Urine pH Ur Specific [place] Urine Protein Urine Glucose (UA) Urine Ketones Urine Blood Urine Nitrate Urine Bilirubin Urine Urobilinogen Ur Leukocyte Esterase Urine WBC (Auto) Urine RBC (Auto) Ur Squamous Epith Cells Amorphous Sediment Urine Bacteria Stool Leukocytes, Qual C. difficile Ag & Toxin Assessment/Plan - Assessment and Plan (Free Text) Assessment: 80 year old female with PMHx of CHF, COPD, HTN, Respiratory failure, recurrent UTIs. presented with dehydration, hypernatremia, acute on chronic respiratory failure, and a UTI. IR thoracentesis (06/09.) Intubated (06/10). Open thoracotomy, right chest tube placement (06/13). Plan: Neuro: Alert, following some commands. Precedex drip, titrating down. Pulm: Acute respiratory failure on vent. PVRC: PEEP 5, RR 14, FiO2 30% Bronchoscopy performed, chest tube inserted. Right chest tube in place, drained 160 mLs/ 12 hours. COPD, decreased Solu-Medrol 20 mg IV every 12h. Patient has been off levophed for 12 hours, plan is CPAP trial and possible extubation. Once patient is more stable then possible trach if she cannot be extubated. CV: Septic shock on Levophed drip, titrating down. Right IJ inserted. Plan for CPAP trial today for possible extubation. Hem: No acute issues Renal: Oliguria did not improve after extra fluids and albumin drip, possibly patient's poor baseline, with CKD. Currently on LR 100cc/hr Endo: No acute issues GI: Feedings were held due to ileus. OGT - 300cc bilious content/ 12 hrs - Surgery consulted for tracheostomy and for evaluation of ileus/sbo. Plan to keep OGT in for drainage. F/U CT abdomen and pelvis with PO contrast. ID: Septic shock secondary to UTI. ID - Dr. Cantrell. Proteus in urine, Acinetobacter in the sputum. Stopped the Primaxin and started Coly-Mycin instead (due to resistance to Primaxin), started Tigecycline (Acinetobacter). Abdominal xray showed dilated bowel loops. Started on Flagyl. Stool studies - no C.Diff. F/U UA and urine culture, marrufo changed on 06/18/16 MSK: dopplers to rule out DVT due to swollen legs- negative for DVT Prophylaxis: DVT- heparin subQ, GI proph - Protonix Palliative care consulted DW Rashawn Carlos DO, PGY-1 <Aravind Phelan - Last Filed: 06/19/16 14:37> CCU Objective - Vital Signs / Intake & Output Vital Signs (Last 4 hours): Vital Signs Temp Pulse Resp BP Pulse Ox 06/19/16 14:01 121 H 15 90/36 L 100 06/19/16 13:01 105 H 13 92/44 L 100 06/19/16 13:00 106 H 13 96 06/19/16 12:02 127 H 16 93/54 L 93 L 06/19/16 12:00 97.6 F 134 H 16 06/19/16 11:02 120 H 18 103/58 L 91 L 06/19/16 11:00 129 H 12 98 Intake and Output (Last 8hrs): Intake & Output 06/18/16 06/19/16 06/19/16 22:59 06:59 14:59 Intake Total 416 616 7751 Output Total 845 530 920 Balance -45 270 780 Weight 284 lb Intake: Intake, IV Amount 800 800 800 Right Proximal Port 400 800 800 Internal Jugular right medial 400 Other 900 Output: Chest Tube Drainage 50 130 90 Left Lateral Chest 50 130 90 Gastric Amount 700 300 700 Stomach 700 300 700 Urine 95 100 130 Urethral (Marrufo) 95 100 130 Other: # Bowel Movements 1 1 - Medications Active Medications: Active Medications Generic Name Dose Route Start Last Admin Trade Name Freq PRN Reason Stop Dose Admin Albuterol/Ipratropium 3 ml 06/11/16 10:45 06/19/16 13:12 Duoneb 3 Mg/0.5 Mg (3 Ml) Ud INH 3 ml RQ6 SHARIF Administration Calcium/Vitamin D 1 tab 06/18/16 10:00 06/19/16 09:20 Oyster Shell Calcium/Vitamin D 500 Mg-200 Iu PO 1 tab DAILY SHARIF Administration Heparin Sodium (Porcine) 5,000 units 06/17/16 10:00 06/19/16 09:20 Heparin SC 5,000 units Q12 SHARIF Administration Levetiracetam 500 mg/ Sodium 105 mls @ 420 mls/hr 06/07/16 18:30 06/19/16 05: 30 Chloride IVPB 420 mls/hr Q12H SHARIF Administration Tigecycline 50 mg/ Sodium 100 mls @ 100 mls/hr 06/15/16 02:00 06/19/16 13:56 Chloride IVPB 100 mls/hr Q12H SHARIF Administration Colistimethate Sodium 150 mg/ 100 mls @ 200 mls/hr 06/17/16 00:00 06/19/16 01 :00 Sodium Chloride IV 200 mls/hr Q24H SHARIF Administration Metronidazole 500 mg in 100 mls @ 100 mls/hr 06/18/16 00:00 06/19/16 08:50 Flagyl IVPB 100 mls/hr Q8H SHARIF Administration Methylprednisolone 20 mg 06/15/16 18:00 06/19/16 05:35 Solu-Medrol IVP 20 mg 0600,1800 SHARIF Administration Pantoprazole Sodium 40 mg 06/05/16 10:00 06/19/16 09:18 Protonix Inj IVP 40 mg DAILY SHARIF Administration Potassium Chloride 40 meq 06/19/16 10:00 06/19/16 09:20 Potassium Chloride Oral Soln PO 06/20/16 10:01 40 meq BID SHARIF Administration - Patient Studies Lab Studies: Microbiology Studies 06/16/16 22:40 Blood Culture - Preliminary Blood-Thru Central Line NO GROWTH AFTER 48 HOURS 06/16/16 23:45 Blood Culture - Preliminary Blood-Thru Central Line NO GROWTH AFTER 48 HOURS Lab Studies 06/19/16 06/19/16 06/19/16 Range/Units 06:24 06:24 05:37 WBC 16.1 H (4.8-10.8) K/uL RBC 4.02 (3.80-5.20) Mil/uL Hgb 10.5 L (11.0-16.0) g/dL Hct 34.4 (34.0-47.0) % MCV 85.5 (81.0-99.0) fL MCH 26.1 L (27.0-31.0) pg MCHC 30.6 L (33.0-37.0) g/dL RDW 22.1 H (11.5-14.5) % Plt Count 177 (130-400) K/uL MPV 8.9 (7.2-11.7) fL Puncture Site Rr pCO2 34 L (35-45) mm/Hg pO2 93 (80-100) mm/Hg HCO3 21.5 (21-28) mmol/L ABG pH 7.38 (7.35-7.45) ABG Total CO2 21.1 L (22-28) mmol/L ABG O2 Saturation 99.1 H (95-98) % ABG Base Excess -4.4 L (-2.0-3.0) mmol/L ABG Hemoglobin 9.7 L (11.7-17.4) g/dL ABG Carboxyhemoglobin 2.1 H (0.5-1.5) % POC ABG HHb (Measured) 0.9 (0.0-5.0) % ABG Methemoglobin 1.1 (0.0-3.0) % Oscar Test Pos A-a O2 Difference 78.0 mm/Hg Respiratory Index 0.8 Hgb O2 Saturation 95.9 (95.0-98.0) % Mechanical Rate 14 FiO2 30.0 % Tidal Volume 500 PEEP 5 Sodium 144 (132-148) mmol/L Potassium 3.2 L (3.6-5.2) mmol/L Chloride 110 H (98-107) mmol/L Carbon Dioxide 23 (22-30) mmol/L Anion Gap 14 (10-20) BUN 50 H (7-17) mg/dL Creatinine 1.7 H (0.7-1.2) MG/DL Est GFR ( Amer) 35 Est GFR (Non-Af Amer) 29 Random Glucose 71 (65-105) mg/dL Calcium 6.2 L (8.6-10.4) mg/dl Phosphorus 4.7 H (2.5-4.5) mg/dL Magnesium 1.6 (1.6-2.3) mg/dL Total Bilirubin 1.2 (0.2-1.3) mg/dL AST 16 (14-36) U/L ALT 16 (9-52) U/L Alkaline Phosphatase 105 (38-126) U/L Total Protein 4.8 L (6.3-8.3) g/dL Albumin 2.1 L (3.5-5.0) g/dL Globulin 2.8 (2.2-3.9) gm/dL Albumin/Globulin Ratio 0.8 L (1.0-2.1) Urine Color (YELLOW) Urine Clarity (Clear) Urine pH (5.0-8.0) Ur Specific [place] (1.003-1.030) Urine Protein (NEGATIVE) mg/dL Urine Glucose (UA) (Normal) mg/dL Urine Ketones (NEGATIVE) mg/dL Urine Blood (NEGATIVE) Urine Nitrate (NEGATIVE) Urine Bilirubin (NEGATIVE) Urine Urobilinogen (0.2-1.0) mg/dL Ur Leukocyte Esterase (Negative) Dominique/uL Urine WBC (Auto) (0-5) /hpf Urine RBC (Auto) (0-3) /hpf Ur Squamous Epith Cells (0-5) /hpf Amorphous Sediment (<OCC) /ul Urine Bacteria (<OCC) 06/18/16 Range/Units 18:27 WBC (4.8-10.8) K/uL RBC (3.80-5.20) Mil/uL Hgb (11.0-16.0) g/dL Hct (34.0-47.0) % MCV (81.0-99.0) fL MCH (27.0-31.0) pg MCHC (33.0-37.0) g/dL RDW (11.5-14.5) % Plt Count (130-400) K/uL MPV (7.2-11.7) fL Puncture Site pCO2 (35-45) mm/Hg pO2 (80-100) mm/Hg HCO3 (21-28) mmol/L ABG pH (7.35-7.45) ABG Total CO2 (22-28) mmol/L ABG O2 Saturation (95-98) % ABG Base Excess (-2.0-3.0) mmol/L ABG Hemoglobin (11.7-17.4) g/dL ABG Carboxyhemoglobin (0.5-1.5) % POC ABG HHb (Measured) (0.0-5.0) % ABG Methemoglobin (0.0-3.0) % Oscar Test A-a O2 Difference mm/Hg Respiratory Index Hgb O2 Saturation (95.0-98.0) % Mechanical Rate FiO2 % Tidal Volume PEEP Sodium (132-148) mmol/L Potassium (3.6-5.2) mmol/L Chloride (98-107) mmol/L Carbon Dioxide (22-30) mmol/L Anion Gap (10-20) BUN (7-17) mg/dL Creatinine (0.7-1.2) MG/DL Est GFR ( Amer) Est GFR (Non-Af Amer) Random Glucose (65-105) mg/dL Calcium (8.6-10.4) mg/dl Phosphorus (2.5-4.5) mg/dL Magnesium (1.6-2.3) mg/dL Total Bilirubin (0.2-1.3) mg/dL AST (14-36) U/L ALT (9-52) U/L Alkaline Phosphatase (38-126) U/L Total Protein (6.3-8.3) g/dL Albumin (3.5-5.0) g/dL Globulin (2.2-3.9) gm/dL Albumin/Globulin Ratio (1.0-2.1) Urine Color Yellow (YELLOW) Urine Clarity Hazy (Clear) Urine pH 5.0 (5.0-8.0) Ur Specific [place] 1.009 (1.003-1.030) Urine Protein 2+ H (NEGATIVE) mg/dL Urine Glucose (UA) 1+ (Normal) mg/dL Urine Ketones Trace (NEGATIVE) mg/dL Urine Blood 1+ H (NEGATIVE) Urine Nitrate Negative (NEGATIVE) Urine Bilirubin Negative (NEGATIVE) Urine Urobilinogen 2.0 H (0.2-1.0) mg/dL Ur Leukocyte Esterase 1+ H (Negative) Dominique/uL Urine WBC (Auto) 16 H (0-5) /hpf Urine RBC (Auto) 6 H (0-3) /hpf Ur Squamous Epith Cells 4 (0-5) /hpf Amorphous Sediment Rare H (<OCC) /ul Urine Bacteria Mod H (<OCC) Laboratory Results - last 24 hr 06/18/16 06/19/16 06/19/16 18:27 05:37 06:24 WBC 16.1 H RBC 4.02 Hgb 10.5 L Hct 34.4 MCV 85.5 MCH 26.1 L MCHC 30.6 L RDW 22.1 H Plt Count 177 MPV 8.9 Puncture Site Rr pCO2 34 L pO2 93 HCO3 21.5 ABG pH 7.38 ABG Total CO2 21.1 L ABG O2 Saturation 99.1 H ABG Base Excess -4.4 L ABG Hemoglobin 9.7 L ABG Carboxyhemoglobin 2.1 H POC ABG HHb (Measured) 0.9 ABG Methemoglobin 1.1 Oscar Test Pos A-a O2 Difference 78.0 Respiratory Index 0.8 Hgb O2 Saturation 95.9 Mechanical Rate 14 FiO2 30.0 Tidal Volume 500 PEEP 5 Sodium Potassium Chloride Carbon Dioxide Anion Gap BUN Creatinine Est GFR ( Amer) Est GFR (Non-Af Amer) Random Glucose Calcium Phosphorus Magnesium Total Bilirubin AST ALT Alkaline Phosphatase Total Protein Albumin Globulin Albumin/Globulin Ratio Urine Color Yellow Urine Clarity Hazy Urine pH 5.0 Ur Specific [place] 1.009 Urine Protein 2+ H Urine Glucose (UA) 1+ Urine Ketones Trace Urine Blood 1+ H Urine Nitrate Negative Urine Bilirubin Negative Urine Urobilinogen 2.0 H Ur Leukocyte Esterase 1+ H Urine WBC (Auto) 16 H Urine RBC (Auto) 6 H Ur Squamous Epith Cells 4 Amorphous Sediment Rare H Urine Bacteria Mod H 06/19/16 06:24 WBC RBC Hgb Hct MCV MCH MCHC RDW Plt Count MPV Puncture Site pCO2 pO2 HCO3 ABG pH ABG Total CO2 ABG O2 Saturation ABG Base Excess ABG Hemoglobin ABG Carboxyhemoglobin POC ABG HHb (Measured) ABG Methemoglobin Oscar Test A-a O2 Difference Respiratory Index Hgb O2 Saturation Mechanical Rate FiO2 Tidal Volume PEEP Sodium 144 Potassium 3.2 L Chloride 110 H Carbon Dioxide 23 Anion Gap 14 BUN 50 H Creatinine 1.7 H Est GFR ( Amer) 35 Est GFR (Non-Af Amer) 29 Random Glucose 71 Calcium 6.2 L Phosphorus 4.7 H Magnesium 1.6 Total Bilirubin 1.2 AST 16 ALT 16 Alkaline Phosphatase 105 Total Protein 4.8 L Albumin 2.1 L Globulin 2.8 Albumin/Globulin Ratio 0.8 L Urine Color Urine Clarity Urine pH Ur Specific [place] Urine Protein Urine Glucose (UA) Urine Ketones Urine Blood Urine Nitrate Urine Bilirubin Urine Urobilinogen Ur Leukocyte Esterase Urine WBC (Auto) Urine RBC (Auto) Ur Squamous Epith Cells Amorphous Sediment Urine Bacteria Assessment/Plan (1) UTI (urinary tract infection) Current Visit: Yes Status: Acute Comment: Broad spectrum antibiotic Fine cultures Attending/Attestation - Attestation I have personally seen and examined this patient.: Yes I have fully participated in the care of the patient.: Yes I have reviewed all pertinent clinical information: Yes Notes (Text): 06/19/16 14:36 I have seen and examined the patient. Medical records, lab studies, and imaging were reviewed by me and a management plan was formulated on multidisciplinary rounds with resident Dr. Morocho. I agree with their above documented assessment and plan. Attempting PS trials again to try to wean to extubate, patient seems to be tolerating. Now off of pressors. Diuresing. Obtaining CT abd/pelvis to assess for obstruction. Critical Care Time 35 minutes. Multi-disciplinary rounds were performed with house staff, nursing, speech therapy, respiratory therapy, pharmacy and nutrition with integrated input from the primary team/attending and other consulting services. The documented time is cumulative and includes review of patient data/exams/labs/chart review and examination of the patient on rounds and throughout the day; time is exclusive of any procedures or teaching time.
--- NOTE | 2016-06-19 09:03 | RAD ---
HISTORY: s/p chest tube COMPARISON: 06/18/2016 FINDINGS: LUNGS: Lines and tubes in stable position. Moderate venous congestion. Bilateral hilar prominence. Confluent airspace opacification in the left mid to lower lung zone with moderate left pleural effusion. Patchy right basilar airspace opacity with trace right pleural effusion. PLEURA: As above. CARDIOVASCULAR: Cardiomegaly. OSSEOUS STRUCTURES: Degenerative changes in the spine and shoulders. VISUALIZED UPPER ABDOMEN: Normal. OTHER FINDINGS: None. IMPRESSION: No significant interval change.
--- NOTE | 2016-06-19 09:08 | CP.PCM.PN ---
<Haresh Carr - Last Filed: 06/19/16 09:04> Subjective - Date & Time of Evaluation Date of Evaluation: 06/19/16 Time of Evaluation: 09:04 - Subjective Subjective: Cardiology Progress Note Dr. Byers Patient seen and examined at the bedside. No acute distress. No acute events overnight. Nursing staff reports no issues. The patient remains intubated PRVC settings: RR14, FiO2 30%, PEEP 5, Tvolume 500. The patient has been off Levophed since last night. Medical condition is improving. ROS unable to be obtained 2/2 to intubation status. Objective - Vital Signs/Intake and Output Vital Signs (last 24 hours): Temp Pulse Resp BP Pulse Ox 97.4 F L 101 H 14 97/49 L 99 06/19/16 08:00 06/19/16 08:01 06/19/16 08:01 06/19/16 08:01 06/19/16 08:01 Intake and Output: 06/19/16 06/19/16 06:59 18:59 Intake Total 1200 200 Output Total 595 60 Balance 605 140 - Medications Medications: Current Medications Albuterol/Ipratropium (Duoneb 3 Mg/0.5 Mg (3 Ml) Ud) 3 ml INH RQ6 [facility] Last Admin: 06/19/16 07:40 Dose: 3 ml Calcium/Vitamin D (Oyster Shell Calcium/Vitamin D 500 Mg-200 Iu) 1 tab PO DAILY [facility] Last Admin: 06/18/16 09:55 Dose: 1 tab Heparin Sodium (Porcine) (Heparin) 5,000 units SC Q12 [facility] Last Admin: 06/18/16 21:55 Dose: 5,000 units Levetiracetam 500 mg/ Sodium (Chloride) 105 mls @ 420 mls/hr IVPB Q12H [facility] Last Admin: 06/19/16 05:30 Dose: 420 mls/hr Norepinephrine Bitartrate 4 mg (/ Dextrose) 254 mls @ 15.24 mls/hr IV .[id number] PRN; Protocol; 4 MCG/MIN PRN Reason: TITRATE PER MD ORDER Last Titration: 06/18/16 14:06 Dose: 5 mcg/min, 19.05 mls/hr Tigecycline 50 mg/ Sodium (Chloride) 100 mls @ 100 mls/hr IVPB Q12H [facility] Last Admin: 06/19/16 03:00 Dose: 100 mls/hr Dexmedetomidine HCl 200 mcg/ (Sodium Chloride) 50 mls @ 6.51 mls/hr IV TITR PRN ; Protocol; 0.2 MCG/KG/HR PRN Reason: Agitation Last Admin: 06/17/16 01:27 Dose: 0.15 mcg/kg/hr, 4.88 mls/hr Colistimethate Sodium 150 mg/ (Sodium Chloride) 100 mls @ 200 mls/hr IV Q24H [facility] Last Admin: 06/19/16 01:00 Dose: 200 mls/hr Lactated Ringer's (Lactated Ringer's) 1,000 mls @ 100 mls/hr IV .Q10H [facility] Last Admin: 06/19/16 03:45 Dose: Not Given Metronidazole (Flagyl) 500 mg in 100 mls @ 100 mls/hr IVPB Q8H [facility] Last Admin: 06/19/16 00:00 Dose: 100 mls/hr Methylprednisolone (Solu-Medrol) 20 mg IVP 0600,1800 [facility] Last Admin: 06/19/16 05:35 Dose: 20 mg Pantoprazole Sodium (Protonix Inj) 40 mg IVP DAILY [facility] Last Admin: 06/18/16 09:55 Dose: 40 mg Potassium Chloride (Potassium Chloride Oral Soln) 40 meq PO BID [facility] Stop: 06/20/16 10:01 - Labs Labs: 06/19/16 06:24 06/19/16 06:24 PT 14.4 SECONDS (9.7-12.2) H 06/13/16 06:28 INR 1.3 06/13/16 06:28 APTT 34 SECONDS (21-34) 06/13/16 06:28 - Additional Findings Additional findings: - Constitutional Appears: Chronically Ill - Head Exam Head Exam: ATRAUMATIC, NORMOCEPHALIC Additional comments: ET Tube in place - Eye Exam Eye Exam: EOMI, Normal appearance Pupil Exam: NORMAL ACCOMODATION - ENT Exam ENT Exam: Mucous Membranes Moist - Neck Exam Neck exam: Positive for: Lymphadenopathy, Normal Inspection. Negative for: Tenderness - Respiratory Exam Respiratory Exam: NORMAL BREATHING PATTERN. absent: Respiratory Distress Additional comments: intubated PRVC settings: RR14, FiO2 30%, PEEP 5, Tvolume 500 - Cardiovascular Exam Cardiovascular Exam: Tachycardia, REGULAR RHYTHM, +S1, +S2. absent: Diastolic murmur, RRR, Systolic Murmur - GI/Abdominal Exam GI & Abdominal Exam: Normal Bowel Sounds, Soft. absent: Distended, Tenderness - Extremities Exam Extremities exam: Positive for: normal inspection, pedal pulses present ( diminished ) - Neurological Exam Neurological exam: Alert, CN II-XII Intact - Skin Skin Exam: Dry, Intact, Normal Color, Warm Assessment and Plan (1) Preprocedural cardiovascular examination Assessment & Plan: Cardiac Risk Assessment: Tracheostomy- currently the risks of surgery outweigh the benefits - Detsky index score: 20, Class II- moderate risk - Jayce risk index: 1- Low risk - Jackson score: 8, Class II- moderate risk - patient remains medically unstable although improving - risks of surgery outweigh benefits at this time - will continue to evaluate medically stability and re-assess cardiac risk stratification Echo ordered- pending 06/04/16 EKG: Sinus tachycardia, 109 bpm, normal physiologic axis, mildly prolonged [place] interval, prolonged QTc, normal QRS duration, lateral infarct age undetermined (present on EKGs >1year), low voltage QRS 02/25/16 Echo: grade I abnormal relaxation pattern with preserved systolic function. Case Discussed with Dr. Zeeshan Carr PGY1 Status: Acute (2) Ventilator dependent Status: Acute (3) Respiratory failure Status: Acute (4) Diastolic CHF Status: Chronic <Vale Byers - Last Filed: 07/23/16 12:22> Objective - Vital Signs/Intake and Output Vital Signs (last 24 hours): Temp Pulse Resp BP Pulse Ox 97.4 F L 61 14 66/28 L 20 L 06/22/16 00:00 06/22/16 02:00 06/22/16 02:00 06/22/16 02:00 06/22/16 02:00 - Labs Labs: 06/21/16 06:36 06/21/16 06:36 PT 14.4 SECONDS (9.7-12.2) H 06/13/16 06:28 INR 1.3 06/13/16 06:28 APTT 34 SECONDS (21-34) 06/13/16 06:28 Attending/Attestation - Attestation I have personally seen and examined this patient.: Yes I have fully participated in the care of the patient.: Yes I have reviewed all pertinent clinical information, including history, physical exam and plan: Yes Notes (Text): 07/23/16 12:20 pt not ready for trach continue vent support
[2016-06-19] MEDS: Calcium-Vit D 500 mg-200 Units Tab UD PO SCH (09:20)
[2016-06-19] MEDS: Potassium Chloride 20 mEq/15 ml LIQ UD PO SCH ×2 (09:20→17:08)
[2016-06-19] MEDS ORDERED: Acetaminophen 650mg/20.3ml solution UD PO STA (11:15)
--- NOTE | 2016-06-19 11:18 | CP.PCM.PN ---
Subjective - Date & Time of Evaluation Date of Evaluation: 06/19/16 Time of Evaluation: 08:00 - Subjective Subjective: Patient seen and examined. Tolerating CPAP since morning. Responsive Afebrile Drainage of 300 mL fluid through the NG tube Abdomen remained distended Objective - Vital Signs/Intake and Output Vital Signs (last 24 hours): Temp Pulse Resp BP Pulse Ox 97.4 F L 120 H 18 103/58 L 91 L 06/19/16 08:00 06/19/16 11:02 06/19/16 11:02 06/19/16 11:02 06/19/16 11:02 Intake and Output: 06/19/16 06/19/16 06:59 18:59 Intake Total 1200 500 Output Total 595 150 Balance 605 350 - Medications Medications: Current Medications Albuterol/Ipratropium (Duoneb 3 Mg/0.5 Mg (3 Ml) Ud) 3 ml INH RQ6 [facility] Last Admin: 06/19/16 07:40 Dose: 3 ml Calcium/Vitamin D (Oyster Shell Calcium/Vitamin D 500 Mg-200 Iu) 1 tab PO DAILY [facility] Last Admin: 06/19/16 09:20 Dose: 1 tab Heparin Sodium (Porcine) (Heparin) 5,000 units SC Q12 [facility] Last Admin: 06/19/16 09:20 Dose: 5,000 units Levetiracetam 500 mg/ Sodium (Chloride) 105 mls @ 420 mls/hr IVPB Q12H [facility] Last Admin: 06/19/16 05:30 Dose: 420 mls/hr Tigecycline 50 mg/ Sodium (Chloride) 100 mls @ 100 mls/hr IVPB Q12H [facility] Last Admin: 06/19/16 03:00 Dose: 100 mls/hr Colistimethate Sodium 150 mg/ (Sodium Chloride) 100 mls @ 200 mls/hr IV Q24H [facility] Last Admin: 06/19/16 01:00 Dose: 200 mls/hr Metronidazole (Flagyl) 500 mg in 100 mls @ 100 mls/hr IVPB Q8H [facility] Last Admin: 06/19/16 08:50 Dose: 100 mls/hr Methylprednisolone (Solu-Medrol) 20 mg IVP 0600,1800 [facility] Last Admin: 06/19/16 05:35 Dose: 20 mg Pantoprazole Sodium (Protonix Inj) 40 mg IVP DAILY [facility] Last Admin: 06/19/16 09:18 Dose: 40 mg Potassium Chloride (Potassium Chloride Oral Soln) 40 meq PO BID [facility] Stop: 06/20/16 10:01 Last Admin: 06/19/16 09:20 Dose: 40 meq - Labs Labs: 06/19/16 06:24 06/19/16 06:24 PT 14.4 SECONDS (9.7-12.2) H 06/13/16 06:28 INR 1.3 06/13/16 06:28 APTT 34 SECONDS (21-34) 06/13/16 06:28 - Head Exam Head Exam: ATRAUMATIC, NORMOCEPHALIC - Eye Exam Eye Exam: Normal appearance - Neck Exam Neck Exam: Normal Inspection - Respiratory Exam Respiratory Exam: Decreased Breath Sounds - Cardiovascular Exam Cardiovascular Exam: REGULAR RHYTHM - GI/Abdominal Exam GI & Abdominal Exam: Distended Assessment and Plan (1) Acute respiratory failure Assessment & Plan: Continue CPAP trial Patient is scheduled for CAT scan of the abdomen Feeding on hold and continue antibiotics as per infectious disease Consider removing chest tube Status: Acute (2) Pleural effusion Status: Acute (3) UTI (urinary tract infection) Status: Acute
[2016-06-19] MEDS ORDERED: Iohexol 240 (50 ml) PO ONE (12:00)
--- NOTE | 2016-06-19 14:15 | CP.PCM.PN ---
Subjective - Date & Time of Evaluation Date of Evaluation: 06/19/16 Time of Evaluation: 14:14 - Subjective Subjective: Clinical course unchanged. chest tube-140c/y Continue current care. Objective - Vital Signs/Intake and Output Vital Signs (last 24 hours): Temp Pulse Resp BP Pulse Ox 97.6 F 121 H 15 90/36 L 100 06/19/16 12:00 06/19/16 14:01 06/19/16 14:01 06/19/16 14:01 06/19/16 14:01 Intake and Output: 06/19/16 06/19/16 06:59 18:59 Intake Total 1200 1700 Output Total 595 920 Balance 605 780 - Medications Medications: Current Medications Albuterol/Ipratropium (Duoneb 3 Mg/0.5 Mg (3 Ml) Ud) 3 ml INH RQ6 [facility] Last Admin: 06/19/16 13:12 Dose: 3 ml Calcium/Vitamin D (Oyster Shell Calcium/Vitamin D 500 Mg-200 Iu) 1 tab PO DAILY [facility] Last Admin: 06/19/16 09:20 Dose: 1 tab Heparin Sodium (Porcine) (Heparin) 5,000 units SC Q12 [facility] Last Admin: 06/19/16 09:20 Dose: 5,000 units Levetiracetam 500 mg/ Sodium (Chloride) 105 mls @ 420 mls/hr IVPB Q12H [facility] Last Admin: 06/19/16 05:30 Dose: 420 mls/hr Tigecycline 50 mg/ Sodium (Chloride) 100 mls @ 100 mls/hr IVPB Q12H [facility] Last Admin: 06/19/16 13:56 Dose: 100 mls/hr Colistimethate Sodium 150 mg/ (Sodium Chloride) 100 mls @ 200 mls/hr IV Q24H [facility] Last Admin: 06/19/16 01:00 Dose: 200 mls/hr Metronidazole (Flagyl) 500 mg in 100 mls @ 100 mls/hr IVPB Q8H [facility] Last Admin: 06/19/16 08:50 Dose: 100 mls/hr Methylprednisolone (Solu-Medrol) 20 mg IVP 0600,1800 [facility] Last Admin: 06/19/16 05:35 Dose: 20 mg Pantoprazole Sodium (Protonix Inj) 40 mg IVP DAILY [facility] Last Admin: 06/19/16 09:18 Dose: 40 mg Potassium Chloride (Potassium Chloride Oral Soln) 40 meq PO BID [facility] Stop: 06/20/16 10:01 Last Admin: 06/19/16 09:20 Dose: 40 meq - Labs Labs: 06/19/16 06:24 06/19/16 06:24 PT 14.4 SECONDS (9.7-12.2) H 06/13/16 06:28 INR 1.3 06/13/16 06:28 APTT 34 SECONDS (21-34) 06/13/16 06:28
[2016-06-19 14:42] LABS: MONO # 1.1 K/uL (0.0-0.8)
[2016-06-19 14:54] LABS: NEUTROPHIL 85 % (50-75); TOTAL CELLS COUNTED 100
--- NOTE | 2016-06-19 16:22 | CT ---
CT abdomen and pelvis without IV contrast Indication: Abdominal distension Technique: Contiguous axial images of the abdomen and pelvis. Oral contrast was administered. No IV contrast given. Coronal and Sagittal reformats generated and reviewed. This CT exam was performed using 1 or more of the following dose reduction techniques: Automated exposure control, adjustment of the MAA and/or kV according to patient size, and/or use of iterative reconstruction technique. Radiation dose: Total exam DLP = 2257.41 mGy-cm. Comparison: CT of the abdomen and pelvis 03/02/16 Findings: Examination markedly limited due to habitus and patient obliquity. Artifact degrades images. Bilateral pleural effusions and consolidations. No visible pneumothorax. Partially imaged left-sided chest tube. Elevation of the left hemidiaphragm. Nasogastric tube. Anasarca. Nodular hepatic contour. Pancreatic atrophy. Cholelithiasis. Atrophic bilateral kidneys. Exophytic 13 mm lesion, indeterminate. Nonobstructing renal calculi. The adrenal glands are not well visualized, grossly unremarkable. Pancreatic atrophy. The noncontrast spleen appears grossly unremarkable. The stomach is nondistended. Marked wall thickening of the proximal duodenum ; correlate for infectious or inflammatory etiologies. Suspect marked caliber change at the distal duodenum with dilated small bowel loops distally. Moderate to large retained colonic fecal material at the rectosigmoid colon. The appendix is not identified. Moderate abdominal and pelvic ascites. Uterus is not identified. Decompressed urinary bladder containing focus of air ; correlate clinically for recent instrumentation. Scoliosis. Multilevel degenerative changes of the spine. Images of the pelvis/bilateral hips. Severe osseous demineralization which limits evaluation for acute fracture lines. Impression: Examination markedly limited due to habitus and patient obliquity. Artifact degrades images. Bilateral pleural effusions and consolidations. Partially imaged left-sided chest tube. Nasogastric tube. Marked wall thickening of the proximal duodenum ; correlate for infectious or inflammatory etiologies. Suspect marked caliber change at the distal duodenum with dilated small bowel loops distally. Obstruction is not excluded. Correlate clinically. Moderate to large retained colonic fecal material at the rectosigmoid colon. Anasarca. Nodular hepatic contour. Moderate abdominal and pelvic ascites. Cholelithiasis. Exophytic 13 mm left renal lesion, indeterminate. Decompressed urinary bladder containing focus of air ; correlate clinically for recent instrumentation. Recommend correlation with urinalysis. Additional findings as above.
[2016-06-19] MEDS ORDERED: Neostigmine 1:2000 (0.5 mg/mL) Inj IV SCH (16:30)
[2016-06-19] MEDS: Neostigmine Methylsulfate 3mg/3ml Syringe IV SCH (17:42)
--- NOTE | 2016-06-19 22:44 | CP.PCM.PN ---
Subjective - Date & Time of Evaluation Date of Evaluation: 06/19/16 Time of Evaluation: 22:44 - Subjective Subjective: afebrile,AWAKE ON VENTILATOR ON PRESSORS, TACHYCARDIC NGT - BILIOUS DRAINGE 300CC /12HRS S/P LT. CHEST TUBE DRAINING SEROSANGUINEOUS DRAINAGE- 160CC. s/p RT IJ CATHETER PLACED 06/11/16 S/P FOLEYS CHANGE 06/18/16. ROS. HEENT : N.head tilted to the left. OGT -DRAINING BILIOUS DRAINAGE Resp : No cough, wheezing ,pleuritic CP ,or hemoptysis LT. CT IN PLACE. Cardio : TACHYCARDIC GI : ABDOMEN DISTENDED, n/v ,diarrhea or GI bleeding . EDITING CLERK : No headache, vertigo, focal deficit. Musculoskel : No joint swelling , Derm : No rash Psych : Normal affect. Ext : No swelling ,calf pain PE. Pt. is alert awake in no distress.ON VENTILATOR V.S As noted in the chart Head ,ear nose,throat and eyes : Normal. Neck : Supple with normal carotids. Lungs: RHONCHI B/L +VE LT CHEST TUBE IN PLACE Heart : S1 & S2 normal with S4. No murmur.TACHYCARDIC Abd : Soft , DISTENDED BS HYPOACTIVE. Neuro : Moves all ext. with no localized deficit. Ext : + EDEMA with intact pulses.Non tender calves Derm : No rashes or decubitus ulcer. LABS/RADIOLOGY: wbc 16.1 H/H 10.5 cREATININE 1.7/bun 50 pleural fluid 06/16/16 FINDINGS NOTED -POST TRAUMATIC-HGIC,T.NY <3.0, GLUCOSE N - LDH HIGH STOOL C. DIFFICILE NEGATIVE STOOL -VE LEUKOCYTES urine culture repeat negative growth bronchial washings +ve Acinetobacter Baumanni SPUTUM CULTURE+VE ACINETOBACTER BOUMANNI S - tYGACIL bLOOD CULTURES 06/13/16 -VE .LFTS 06/17 N .. URINE CULTURE +VE PROTEUS MIRABILIS -MDR ASSESSMENT/PLAN : IMPRESSION; -RESPIRATORY FAILURE/ VAP/HAP -[id number] -S/P LEFT-SIDED THORACENTESIS/ chest tube 06/13 - SEPSIS- SYNDROME /HYPOTENSION - [id number]-RESISTANT PROTEUS MIRABILIS -CHF - ?/SBO VS ILEUS -DM. -HX MANISH- MASTOIDITIS/CHOLESTEATOMA. PLAN; DC IV VANCOMYCIN.06/13 ON IV tYGACIL 100 MG LOADING DOSE FOLLOWED BY 50 EVERY 12 HOURLY.06/14 ON IV Colistin 150 mg every 24 hourly. 06/16/16 ONIV FLAGYL 500MG IV Q8HRLY ADDED 06/17/16 MONITOR RENAL FUNCTION CLOSELY. PT FOR CT ABDOMEN /PELVIS R/O SBO-P pulmonary toilet. CASE DISCUSSED WITH STAFF. Objective - Vital Signs/Intake and Output Vital Signs (last 24 hours): Temp Pulse Resp BP Pulse Ox 97.8 F 121 H 14 74/42 L 90 L 06/19/16 20:00 06/19/16 21:01 06/19/16 21:01 06/19/16 21:02 06/19/16 21:01 Intake and Output: 06/19/16 06/20/16 18:59 06:59 Intake Total 2100 100 Output Total 1181 10 Balance 919 90 - Medications Medications: Current Medications Albuterol/Ipratropium (Duoneb 3 Mg/0.5 Mg (3 Ml) Ud) 3 ml INH RQ6 [facility] Last Admin: 06/19/16 19:25 Dose: 3 ml Calcium/Vitamin D (Oyster Shell Calcium/Vitamin D 500 Mg-200 Iu) 1 tab PO DAILY [facility] Last Admin: 06/19/16 09:20 Dose: 1 tab Furosemide (Lasix) 80 mg IVP Q24H [facility] Last Admin: 06/19/16 17:07 Dose: 80 mg Heparin Sodium (Porcine) (Heparin) 5,000 units SC Q12 [facility] Last Admin: 06/19/16 21:22 Dose: 5,000 units Levetiracetam 500 mg/ Sodium (Chloride) 105 mls @ 420 mls/hr IVPB Q12H [facility] Last Admin: 06/19/16 17:34 Dose: 420 mls/hr Tigecycline 50 mg/ Sodium (Chloride) 100 mls @ 100 mls/hr IVPB Q12H [facility] Last Admin: 06/19/16 13:56 Dose: 100 mls/hr Colistimethate Sodium 150 mg/ (Sodium Chloride) 100 mls @ 200 mls/hr IV Q24H [facility] Last Admin: 06/19/16 01:00 Dose: 200 mls/hr Metronidazole (Flagyl) 500 mg in 100 mls @ 100 mls/hr IVPB Q8H [facility] Last Admin: 06/19/16 15:52 Dose: 100 mls/hr Neostigmine Methylsulfate (Neostigmine Methylsulfate) 2 mg IV Q24H [facility] Stop: 06/20/16 16:46 Last Admin: 06/19/16 17:42 Dose: 2 mg Pantoprazole Sodium (Protonix Inj) 40 mg IVP DAILY [facility] Last Admin: 06/19/16 09:18 Dose: 40 mg Potassium Chloride (Potassium Chloride Oral Soln) 40 meq PO BID [facility] Stop: 06/20/16 10:01 Last Admin: 06/19/16 17:08 Dose: 40 meq - Labs Labs: 06/19/16 06:24 06/19/16 06:24 PT 14.4 SECONDS (9.7-12.2) H 06/13/16 06:28 INR 1.3 06/13/16 06:28 APTT 34 SECONDS (21-34) 06/13/16 06:28 Assessment and Plan (1) UTI (urinary tract infection) Status: Acute (2) Dehydration Status: Acute (3) Acute respiratory failure Status: Acute (4) COPD (chronic obstructive pulmonary disease) Status: Acute (5) Hypotension Status: Acute (6) Acute onset sepsis Status: Acute
--- NOTE | 2016-06-20 00:12 | CP.PCM.PN ---
Subjective - Date & Time of Evaluation Date of Evaluation: 06/19/16 Time of Evaluation: 10:19 - Subjective Subjective: pt seen and examined, remains on MV 30% FiO2, clinincally unchanged, tries to communicate, awake. Pt is on antibiotic Objective - Vital Signs/Intake and Output Vital Signs (last 24 hours): Temp Pulse Resp BP Pulse Ox 97.8 F 121 H 14 74/42 L 90 L 06/19/16 20:00 06/19/16 21:01 06/19/16 21:01 06/19/16 21:02 06/19/16 21:01 Intake and Output: 06/19/16 06/20/16 18:59 06:59 Intake Total 2100 100 Output Total 1181 10 Balance 919 90 - Medications Medications: Current Medications Albuterol/Ipratropium (Duoneb 3 Mg/0.5 Mg (3 Ml) Ud) 3 ml INH RQ6 [facility] Last Admin: 06/19/16 19:25 Dose: 3 ml Calcium/Vitamin D (Oyster Shell Calcium/Vitamin D 500 Mg-200 Iu) 1 tab PO DAILY [facility] Last Admin: 06/19/16 09:20 Dose: 1 tab Furosemide (Lasix) 80 mg IVP Q24H [facility] Last Admin: 06/19/16 17:07 Dose: 80 mg Heparin Sodium (Porcine) (Heparin) 5,000 units SC Q12 [facility] Last Admin: 06/19/16 21:22 Dose: 5,000 units Levetiracetam 500 mg/ Sodium (Chloride) 105 mls @ 420 mls/hr IVPB Q12H [facility] Last Admin: 06/19/16 17:34 Dose: 420 mls/hr Tigecycline 50 mg/ Sodium (Chloride) 100 mls @ 100 mls/hr IVPB Q12H [facility] Last Admin: 06/19/16 13:56 Dose: 100 mls/hr Colistimethate Sodium 150 mg/ (Sodium Chloride) 100 mls @ 200 mls/hr IV Q24H [facility] Last Admin: 06/19/16 01:00 Dose: 200 mls/hr Metronidazole (Flagyl) 500 mg in 100 mls @ 100 mls/hr IVPB Q8H [facility] Last Admin: 06/19/16 15:52 Dose: 100 mls/hr Neostigmine Methylsulfate (Neostigmine Methylsulfate) 2 mg IV Q24H [facility] Stop: 06/20/16 16:46 Last Admin: 06/19/16 17:42 Dose: 2 mg Pantoprazole Sodium (Protonix Inj) 40 mg IVP DAILY [facility] Last Admin: 06/19/16 09:18 Dose: 40 mg Potassium Chloride (Potassium Chloride Oral Soln) 40 meq PO BID [facility] Stop: 06/20/16 10:01 Last Admin: 06/19/16 17:08 Dose: 40 meq - Labs Labs: 06/19/16 06:24 06/19/16 06:24 PT 14.4 SECONDS (9.7-12.2) H 06/13/16 06:28 INR 1.3 06/13/16 06:28 APTT 34 SECONDS (21-34) 06/13/16 06:28 - Constitutional Appears: No Acute Distress, Chronically Ill - Head Exam Head Exam: ATRAUMATIC, NORMAL INSPECTION, NORMOCEPHALIC - Eye Exam Eye Exam: EOMI, Normal appearance, PERRL Pupil Exam: NORMAL ACCOMODATION, PERRL - ENT Exam ENT Exam: Mucous Membranes Moist - Respiratory Exam Respiratory Exam: Decreased Breath Sounds, Rales, Rhonchi - Cardiovascular Exam Cardiovascular Exam: Tachycardia, +S1, +S2, Murmur Additional comments: s3 positive - GI/Abdominal Exam GI & Abdominal Exam: Soft, Normal Bowel Sounds. absent: Tenderness Assessment and Plan (1) UTI (urinary tract infection) Status: Acute (2) Dehydration Status: Acute (3) Hypotension Status: Acute (4) Acute onset sepsis Status: Acute (5) Respiratory failure Assessment & Plan: on MV 30% FiO2 attempt to wean Status: Acute (6) Hypertension Status: Acute (7) Pneumonia involving left lung Assessment & Plan: on antibiotics improving Status: Acute (8) Pleural effusion Status: Acute
[2016-06-20] MEDS: metroNIDAZOLE IV 500 mg/100 ml 500 MG/100 ML BAG IVPB SCH ×4 (00:30→23:29)
[2016-06-20] MEDS: Albuterol-Ipratrop 3 mg / 0.5 (3 ml) UD INH SCH ×4 (01:12→19:20)
[2016-06-20 05:46] LABS: ABG ALLEN TEST POS; ABG MECHANICAL RATE 14; ARTERIAL BLOOD HGB O2 SAT 96.1 % (95.0-98.0); ATERIAL BLOOD GAS PEEP 5; DRAW SITE RR; HHB 0.7 % (0.0-5.0); METHEMOGLOBIN 1.2 % (0.0-3.0)
[2016-06-20] MEDS: levETIRAcetam 500 MG in Sodium Chloride 0.9% 100 ML IVPB SCH ×2 (06:00→17:35)
--- NOTE | 2016-06-20 06:42 | CP.CCUPN ---
Addendum entered and electronically signed by Geovanny Yoder DO 06/20/16 11:21: f/u 2pm BMP today Addendum to plan Hypokalemia: 2.7 on Am labs, repleted via IV Hypomagnesemia: 1.4 on Am labs, repleted IV ID: stool cultures, Final: negative Original Note: <Geovanny Yoder - Last Filed: 06/20/16 11:09> CCU Subjective - Physician Review Subjective (Free Text): 06/20/16 06:40 Patient was seen and examined at bedside. Pt tolerated CPAP trial well overnight and extubated this AM. She is awake and able to follow commands. Per nursing pt had 3 BMs of formed stool yesterday, and one 'pasty stool' overnight. Pt given neostigmine, dose one of two, last pm, for pseudo- obstruction. She remains tachycardic and hypotensive. Pt for PICC line today. Bronchial washings showed Achinetobacter Baumannii patient is currently on Coly- Mycin and Tygacil as per Dr. Cantrell. Patient had bilious output of 1700 cc past 24 hours. Chest tube drainage: 130 cc / 24hrs Critical Care Time Spent (in minutes): 35 CCU Objective - Vital Signs / Intake & Output Vital Signs (Last 4 hours): Vital Signs Temp Pulse Resp BP Pulse Ox 06/20/16 05:01 129 H 14 93/31 L 06/20/16 05:00 136 H 16 06/20/16 04:00 97.2 F L 112 H 14 87/41 L 06/20/16 03:00 135 H 15 102/51 L 92 L Intake and Output (Last 8hrs): Intake & Output 06/19/16 06/19/16 06/20/16 14:59 22:59 06:59 Intake Total 1700 800 800 Output Total 650 231 2064 Balance 779 428 -222 Weight 284 lb 6 oz Intake: Intake, IV Amount 800 800 800 Right Proximal Port 800 800 800 Internal Jugular Oral 0 0 Other 900 Output: Chest Tube Drainage 90 10 Left Lateral Chest 90 10 Gastric Amount 700 200 750 Stomach 700 200 750 Urine 130 162 272 Urethral (Marrufo) 130 162 272 Urine/Stool Mix 1 Other: # Bowel Movements 1 1 - Physical Exam Head: Positive for: Atraumatic, Normocephalic Pupils: Positive for: PERRL Extroacular Muscles: Positive for: EOMI Conjunctiva: Positive for: Normal Mouth: Positive for: Moist Mucous Membranes Respiratory/Chest: Positive for: Good Air Exchange, Decreased Breath Sounds Cardiovascular: Positive for: Tachycardic Upper Extremity: Positive for: Normal Inspection, NORMAL PULSES. Negative for: Cyanosis, Edema Lower Extremity: Positive for: Normal Inspection, NORMAL PULSES. Negative for: Edema, CALF TENDERNESS Neurological: Positive for: GCS=15, CN II-XII Intact Skin: Positive for: Warm, Dry Psychiatric: Positive for: Alert, Oriented x 3 - Medications Active Medications: Active Medications Generic Name Dose Route Start Last Admin Trade Name Freq PRN Reason Stop Dose Admin Albuterol/Ipratropium 3 ml 06/11/16 10:45 06/20/16 01:12 Duoneb 3 Mg/0.5 Mg (3 Ml) Ud INH 3 ml RQ6 SHARIF Administration Calcium/Vitamin D 1 tab 06/18/16 10:00 06/19/16 09:20 Oyster Shell Calcium/Vitamin D 500 Mg-200 Iu PO 1 tab DAILY SHARIF Administration Furosemide 80 mg 06/19/16 16:30 06/19/16 17:07 Lasix IVP 80 mg Q24H SHARIF Administration Heparin Sodium (Porcine) 5,000 units 06/17/16 10:00 06/19/16 21:22 Heparin SC 5,000 units Q12 SHARIF Administration Levetiracetam 500 mg/ Sodium 105 mls @ 420 mls/hr 06/07/16 18:30 06/20/16 06: 00 Chloride IVPB 420 mls/hr Q12H SHARIF Administration Tigecycline 50 mg/ Sodium 100 mls @ 100 mls/hr 06/15/16 02:00 06/20/16 01:30 Chloride IVPB 100 mls/hr Q12H SHARIF Administration Colistimethate Sodium 150 mg/ 100 mls @ 200 mls/hr 06/17/16 00:00 06/20/16 00 :00 Sodium Chloride IV 200 mls/hr Q24H SHARIF Administration Metronidazole 500 mg in 100 mls @ 100 mls/hr 06/18/16 00:00 06/20/16 00:30 Flagyl IVPB 100 mls/hr Q8H SHARIF Administration Neostigmine Methylsulfate 2 mg 06/19/16 16:45 06/19/16 17:42 Neostigmine Methylsulfate IV 06/20/16 16:46 2 mg Q24H SHARIF Administration Pantoprazole Sodium 40 mg 06/05/16 10:00 06/19/16 09:18 Protonix Inj IVP 40 mg DAILY SHARIF Administration Potassium Chloride 40 meq 06/19/16 10:00 06/19/16 17:08 Potassium Chloride Oral Soln PO 06/20/16 10:01 40 meq BID SHARIF Administration - Patient Studies Lab Studies: Microbiology Studies 06/16/16 22:40 Blood Culture - Preliminary Blood-Thru Central Line NO GROWTH AFTER 48 HOURS 06/16/16 23:45 Blood Culture - Preliminary Blood-Thru Central Line NO GROWTH AFTER 48 HOURS Lab Studies 06/20/16 06/19/16 06/19/16 Range/Units 05:29 06:24 06:24 WBC 16.1 H (4.8-10.8) K/uL RBC 4.02 (3.80-5.20) Mil/uL Hgb 10.5 L (11.0-16.0) g/dL Hct 34.4 (34.0-47.0) % MCV 85.5 (81.0-99.0) fL MCH 26.1 L (27.0-31.0) pg MCHC 30.6 L (33.0-37.0) g/dL RDW 22.1 H (11.5-14.5) % Plt Count 177 (130-400) K/uL MPV 8.9 (7.2-11.7) fL Neut % (Auto) 87.0 H (50.0-75.0) % Lymph % (Auto) 6.0 L (20.0-40.0) % [place] % (Auto) 7.0 (0.0-10.0) % Eos % (Auto) 0.0 (0.0-4.0) % Baso % (Auto) 0.0 (0.0-2.0) % Neut # 14.0 H (1.8-7.0) K/uL Lymph # 1.0 (1.0-4.3) K/uL [place] # 1.1 H (0.0-0.8) K/uL Eos # 0.0 (0.0-0.7) K/uL Baso # 0.0 (0.0-0.2) K/uL Neutrophils % (Manual) 85 H (50-75) % Band Neutrophils % 1 (0-2) % Lymphocytes % (Manual) 10 L (20-40) % Monocytes % (Manual) 4 (0-10) % Platelet Estimate Normal (NORMAL) Hypochromasia (manual) Slight Poikilocytosis (manual Slight Anisocytosis (manual) Slight Microcytosis (manual) Slight Macrocytosis (manual) Slight Target Cells Slight Tear Drop Cells Slight Ovalocytes Slight Jesus Cells Moderate Puncture Site Rr pCO2 32 L (35-45) mm/Hg pO2 99 (80-100) mm/Hg HCO3 21.2 (21-28) mmol/L ABG pH 7.39 (7.35-7.45) ABG Total CO2 20.4 L (22-28) mmol/L ABG O2 Saturation 99.3 H (95-98) % ABG Base Excess -4.8 L (-2.0-3.0) mmol/L ABG Hemoglobin 10.2 L (11.7-17.4) g/dL ABG Carboxyhemoglobin 2.0 H (0.5-1.5) % POC ABG HHb (Measured) 0.7 (0.0-5.0) % ABG Methemoglobin 1.2 (0.0-3.0) % Oscar Test Pos A-a O2 Difference 75.0 mm/Hg Respiratory Index 0.8 Hgb O2 Saturation 96.1 (95.0-98.0) % Mechanical Rate 14 FiO2 30.0 % Tidal Volume 500 PEEP 5 Sodium 144 (132-148) mmol/L Potassium 3.2 L (3.6-5.2) mmol/L Chloride 110 H (98-107) mmol/L Carbon Dioxide 23 (22-30) mmol/L Anion Gap 14 (10-20) BUN 50 H (7-17) mg/dL Creatinine 1.7 H (0.7-1.2) MG/DL Est GFR ( Amer) 35 Est GFR (Non-Af Amer) 29 Random Glucose 71 (65-105) mg/dL Calcium 6.2 L (8.6-10.4) mg/dl Phosphorus 4.7 H (2.5-4.5) mg/dL Magnesium 1.6 (1.6-2.3) mg/dL Total Bilirubin 1.2 (0.2-1.3) mg/dL AST 16 (14-36) U/L ALT 16 (9-52) U/L Alkaline Phosphatase 105 (38-126) U/L Total Protein 4.8 L (6.3-8.3) g/dL Albumin 2.1 L (3.5-5.0) g/dL Globulin 2.8 (2.2-3.9) gm/dL Albumin/Globulin Ratio 0.8 L (1.0-2.1) Laboratory Results - last 24 hr 06/19/16 06/19/16 06/20/16 06:24 06:24 05:29 WBC 16.1 H RBC 4.02 Hgb 10.5 L Hct 34.4 MCV 85.5 MCH 26.1 L MCHC 30.6 L RDW 22.1 H Plt Count 177 MPV 8.9 Neut % (Auto) 87.0 H Lymph % (Auto) 6.0 L [place] % (Auto) 7.0 Eos % (Auto) 0.0 Baso % (Auto) 0.0 Neut # 14.0 H Lymph # 1.0 [place] # 1.1 H Eos # 0.0 Baso # 0.0 Neutrophils % (Manual) 85 H Band Neutrophils % 1 Lymphocytes % (Manual) 10 L Monocytes % (Manual) 4 Platelet Estimate Normal Hypochromasia (manual) Slight Poikilocytosis (manual Slight Anisocytosis (manual) Slight Microcytosis (manual) Slight Macrocytosis (manual) Slight Target Cells Slight Tear Drop Cells Slight Ovalocytes Slight [place] Cells Moderate Puncture Site Rr pCO2 32 L pO2 99 HCO3 21.2 ABG pH 7.39 ABG Total CO2 20.4 L ABG O2 Saturation 99.3 H ABG Base Excess -4.8 L ABG Hemoglobin 10.2 L ABG Carboxyhemoglobin 2.0 H POC ABG HHb (Measured) 0.7 ABG Methemoglobin 1.2 Oscar Test Pos A-a O2 Difference 75.0 Respiratory Index 0.8 Hgb O2 Saturation 96.1 Mechanical Rate 14 FiO2 30.0 Tidal Volume 500 PEEP 5 Sodium 144 Potassium 3.2 L Chloride 110 H Carbon Dioxide 23 Anion Gap 14 BUN 50 H Creatinine 1.7 H Est GFR ( Amer) 35 Est GFR (Non-Af Amer) 29 Random Glucose 71 Calcium 6.2 L Phosphorus 4.7 H Magnesium 1.6 Total Bilirubin 1.2 AST 16 ALT 16 Alkaline Phosphatase 105 Total Protein 4.8 L Albumin 2.1 L Globulin 2.8 Albumin/Globulin Ratio 0.8 L Review of Systems - Constitutional Constitutional: absent: Fever, Chills - Cardiovascular Cardiovascular: absent: Chest Pain - Gastrointestinal Gastrointestinal: absent: Abdominal Pain - Musculoskeletal Musculoskeletal: absent: Back Pain - Neurological Neurological: absent: Tingling, Weakness Assessment/Plan - Assessment and Plan (Free Text) Assessment: 80 year old female with PMHx of CHF, COPD, HTN, Respiratory failure, recurrent UTIs. presented with dehydration, hypernatremia, acute on chronic respiratory failure, and a UTI. IR thoracentesis (06/09.) Intubated (06/10). Open thoracotomy, right chest tube placement (06/13). Plan: Neuro: Alert, following commands. Pulm: Tolerated CPAP trial. Extubated this AM. Right chest tube in place, drained 130 mLs in 24 hours. COPD, decreased Solu-Medrol 20 mg IV every 12h. CV: Septic shock on Levophed drip, titrating down. Right IJ inserted. Plan for CPAP trial today for possible extubation. Hem: No acute issues Renal: Oliguria not improving despite extra fluids and Lasix 80mg IV. Placed on Albumin 5% @ 50ml/hr. IVF discontinued. - f/u Urine Na, Creatinine Endo: No acute issues GI: Feedings were held due to ileus. OGT - 1700 cc bilious content/ 24 hrs - Surgery consulted for tracheostomy and for evaluation of ileus/sbo. Plan to keep OGT in for drainage. CT abdomen and pelvis with PO contrast (06/19/16): B/l pleural effusions, consolidations. Wall thickening of proximal duodenum. Marked caliber change at distal duodenum with dilated small bowel loops distally. Obstruction not excluded. Large retained fecal materal. Cholelithiasis. Anasarca. Moderate abdominal and pelvic ascites (see full report). ID: Septic shock secondary to UTI. ID - Dr. Cantrell. Proteus in urine, Acinetobacter in the sputum. Stopped the Primaxin and started Coly-Mycin instead (due to resistance to Primaxin), started Tigecycline (Acinetobacter). Abdominal xray showed dilated bowel loops. Started on Flagyl. Stool studies - no C.Diff. UA (06/10/16): 2+ LE, Nitrate positive, 73 WBC, Rare bacteria, 2+ protein repeat UA (06/18/16): 1+ LE, Nitrate negative, 16 WBC, Mod bacteria, 2+ protein Blood culture (06/16/16): No growth after 3 days x2 f/u Urine culture - marrufo changed on 06/18/16 MSK: dopplers to rule out DVT due to swollen legs- negative for DVT Prophylaxis: DVT- heparin subQ, GI proph - Protonix Palliative care consulted DW Dr. Nazario, Geovanny Yoder DO, PGY-1 <Aravind Phelan - Last Filed: 06/20/16 13:24> CCU Objective - Vital Signs / Intake & Output Vital Signs (Last 4 hours): Vital Signs Temp Pulse Resp BP Pulse Ox 06/20/16 13:15 111 H 06/20/16 12:00 98 F 111 H 14 76/32 L 06/20/16 11:04 147 H 06/20/16 10:19 147 H 19 82/37 L 96 06/20/16 10:02 160 H 13 77/41 L 100 06/20/16 10:00 165 H 13 97 06/20/16 09:24 136 H 15 91/46 L 100 Intake and Output (Last 8hrs): Intake & Output 06/19/16 06/20/16 06/20/16 22:59 06:59 14:59 Intake Total 413 971 7051 Output Total 372 1022 184 Balance 428 -222 816 Weight 284 lb 6 oz Intake: Intake, IV Amount 264 336 7325 Right Medial Port 500 Right Proximal Port 800 800 400 Internal Jugular right distal 100 Oral 0 0 0 Output: Chest Tube Drainage 10 Left Lateral Chest 10 Gastric Amount 200 750 Stomach 200 750 Urine 162 272 184 Urethral (Marrufo) 162 272 184 Other: # Bowel Movements 1 1 - Medications Active Medications: Active Medications Generic Name Dose Route Start Last Admin Trade Name Freq PRN Reason Stop Dose Admin Albuterol/Ipratropium 3 ml 06/11/16 10:45 06/20/16 13:12 Duoneb 3 Mg/0.5 Mg (3 Ml) Ud INH 3 ml RQ6 SHARIF Administration Calcium/Vitamin D 1 tab 06/18/16 10:00 06/20/16 09:38 Oyster Shell Calcium/Vitamin D 500 Mg-200 Iu PO Not Given DAILY [facility] Furosemide 80 mg 06/19/16 16:30 06/19/16 17:07 Lasix IVP 80 mg Q24H SHARIF Administration Heparin Sodium (Porcine) 5,000 units 06/17/16 10:00 06/20/16 09:41 Heparin SC 5,000 units Q12 SHARIF Administration Levetiracetam 500 mg/ Sodium 105 mls @ 420 mls/hr 06/07/16 18:30 06/20/16 06: 00 Chloride IVPB 420 mls/hr Q12H SHARIF Administration Tigecycline 50 mg/ Sodium 100 mls @ 100 mls/hr 06/15/16 02:00 06/20/16 13:12 Chloride IVPB 100 mls/hr Q12H SHARIF Administration Colistimethate Sodium 150 mg/ 100 mls @ 200 mls/hr 06/17/16 00:00 06/20/16 00 :00 Sodium Chloride IV 200 mls/hr Q24H SHARIF Administration Metronidazole 500 mg in 100 mls @ 100 mls/hr 06/18/16 00:00 06/20/16 08:33 Flagyl IVPB 100 mls/hr Q8H SHARIF Administration Albumin Human 500 mls @ 50 mls/hr 06/20/16 10:00 Albumin Human 5% (12.5 Gm/250 Ml) IVPB 06/22/16 11:59 Q10H SHARIF Neostigmine Methylsulfate 2 mg 06/19/16 16:45 06/19/16 17:42 Neostigmine Methylsulfate IV 06/20/16 16:46 2 mg Q24H SHARIF Administration Pantoprazole Sodium 40 mg 06/05/16 10:00 06/20/16 09:41 Protonix Inj IVP 40 mg DAILY SHARIF Administration - Patient Studies Lab Studies: Microbiology Studies 06/18/16 19:00 Urine Culture - Preliminary Urine,Marrufo Gram Positive Cocci 06/17/16 Unknown Stool Culture - Final Stool NO SALMONELLA, SHIGELLA OR CAMPYLOBACTER ISOLATED. 06/16/16 22:40 Blood Culture - Preliminary Blood-Thru Central Line NO GROWTH AFTER 3 DAYS 06/16/16 23:45 Blood Culture - Preliminary Blood-Thru Central Line NO GROWTH AFTER 3 DAYS Lab Studies 06/20/16 06/20/16 06/20/16 Range/Units 11:21 06:43 06:43 WBC 14.5 H (4.8-10.8) K/uL RBC 3.66 L (3.80-5.20) Mil/uL Hgb 9.6 L (11.0-16.0) g/dL Hct 31.7 L (34.0-47.0) % MCV 86.7 (81.0-99.0) fL MCH 26.3 L (27.0-31.0) pg MCHC 30.3 L (33.0-37.0) g/dL RDW 21.4 H (11.5-14.5) % Plt Count 132 (130-400) K/uL MPV 8.7 (7.2-11.7) fL Neut % (Auto) 81.4 H (50.0-75.0) % Lymph % (Auto) 9.0 L (20.0-40.0) % [place] % (Auto) 8.0 (0.0-10.0) % Eos % (Auto) 1.4 (0.0-4.0) % Baso % (Auto) 0.2 (0.0-2.0) % Neut # 11.8 H (1.8-7.0) K/uL Lymph # 1.3 (1.0-4.3) K/uL [place] # 1.2 H (0.0-0.8) K/uL Eos # 0.2 (0.0-0.7) K/uL Baso # 0.0 (0.0-0.2) K/uL Neutrophils % (Manual) 88 H (50-75) % Band Neutrophils % 1 (0-2) % Lymphocytes % (Manual) 6 L (20-40) % Monocytes % (Manual) 3 (0-10) % Eosinophils % (Manual) 2 (0-4) % Platelet Estimate Normal (NORMAL) Hypochromasia (manual) Slight Poikilocytosis (manual Slight Anisocytosis (manual) Slight Microcytosis (manual) Macrocytosis (manual) Target Cells Tear Drop Cells Slight Ovalocytes Slight [place] Cells Slight Puncture Site pCO2 (35-45) mm/Hg pO2 (80-100) mm/Hg HCO3 (21-28) mmol/L ABG pH (7.35-7.45) ABG Total CO2 (22-28) mmol/L ABG O2 Saturation (95-98) % ABG Base Excess (-2.0-3.0) mmol/L ABG Hemoglobin (11.7-17.4) g/dL ABG Carboxyhemoglobin (0.5-1.5) % POC ABG HHb (Measured) (0.0-5.0) % ABG Methemoglobin (0.0-3.0) % Oscar Test A-a O2 Difference mm/Hg Respiratory Index Hgb O2 Saturation (95.0-98.0) % Mechanical Rate FiO2 % Tidal Volume PEEP Sodium 142 (132-148) mmol/L Potassium 2.7 L (3.6-5.2) mmol/L Chloride 111 H (98-107) mmol/L Carbon Dioxide 20 L (22-30) mmol/L Anion Gap 14 (10-20) BUN 49 H (7-17) mg/dL Creatinine 1.5 H (0.7-1.2) MG/DL Est GFR ( Amer) 41 Est GFR (Non-Af Amer) 33 Random Glucose 51 L (65-105) mg/dL Calcium 5.7 L* (8.6-10.4) mg/dl Phosphorus 4.5 (2.5-4.5) mg/dL Magnesium 1.4 L (1.6-2.3) mg/dL Total Bilirubin 1.2 (0.2-1.3) mg/dL AST 14 (14-36) U/L ALT 16 (9-52) U/L Alkaline Phosphatase 91 (38-126) U/L Total Protein 4.2 L (6.3-8.3) g/dL Albumin 1.7 L (3.5-5.0) g/dL Globulin 2.5 (2.2-3.9) gm/dL Albumin/Globulin Ratio 0.7 L (1.0-2.1) Ur Random Creatinine 54.4 mg/dL Ur Random Sodium 49 mmol/L 06/20/16 06/19/16 Range/Units 05:29 06:24 WBC (4.8-10.8) K/uL RBC (3.80-5.20) Mil/uL Hgb (11.0-16.0) g/dL Hct (34.0-47.0) % MCV (81.0-99.0) fL MCH (27.0-31.0) pg MCHC (33.0-37.0) g/dL RDW (11.5-14.5) % Plt Count (130-400) K/uL MPV (7.2-11.7) fL Neut % (Auto) 87.0 H (50.0-75.0) % Lymph % (Auto) 6.0 L (20.0-40.0) % [place] % (Auto) 7.0 (0.0-10.0) % Eos % (Auto) 0.0 (0.0-4.0) % Baso % (Auto) 0.0 (0.0-2.0) % Neut # 14.0 H (1.8-7.0) K/uL Lymph # 1.0 (1.0-4.3) K/uL [place] # 1.1 H (0.0-0.8) K/uL Eos # 0.0 (0.0-0.7) K/uL Baso # 0.0 (0.0-0.2) K/uL Neutrophils % (Manual) 85 H (50-75) % Band Neutrophils % 1 (0-2) % Lymphocytes % (Manual) 10 L (20-40) % Monocytes % (Manual) 4 (0-10) % Eosinophils % (Manual) (0-4) % Platelet Estimate Normal (NORMAL) Hypochromasia (manual) Slight Poikilocytosis (manual Slight Anisocytosis (manual) Slight Microcytosis (manual) Slight Macrocytosis (manual) Slight Target Cells Slight Tear Drop Cells Slight Ovalocytes Slight Jesus Cells Moderate Puncture Site Rr pCO2 32 L (35-45) mm/Hg pO2 99 (80-100) mm/Hg HCO3 21.2 (21-28) mmol/L ABG pH 7.39 (7.35-7.45) ABG Total CO2 20.4 L (22-28) mmol/L ABG O2 Saturation 99.3 H (95-98) % ABG Base Excess -4.8 L (-2.0-3.0) mmol/L ABG Hemoglobin 10.2 L (11.7-17.4) g/dL ABG Carboxyhemoglobin 2.0 H (0.5-1.5) % POC ABG HHb (Measured) 0.7 (0.0-5.0) % ABG Methemoglobin 1.2 (0.0-3.0) % Oscar Test Pos A-a O2 Difference 75.0 mm/Hg Respiratory Index 0.8 Hgb O2 Saturation 96.1 (95.0-98.0) % Mechanical Rate 14 FiO2 30.0 % Tidal Volume 500 PEEP 5 Sodium (132-148) mmol/L Potassium (3.6-5.2) mmol/L Chloride (98-107) mmol/L Carbon Dioxide (22-30) mmol/L Anion Gap (10-20) BUN (7-17) mg/dL Creatinine (0.7-1.2) MG/DL Est GFR ( Amer) Est GFR (Non-Af Amer) Random Glucose (65-105) mg/dL Calcium (8.6-10.4) mg/dl Phosphorus (2.5-4.5) mg/dL Magnesium (1.6-2.3) mg/dL Total Bilirubin (0.2-1.3) mg/dL AST (14-36) U/L ALT (9-52) U/L Alkaline Phosphatase (38-126) U/L Total Protein (6.3-8.3) g/dL Albumin (3.5-5.0) g/dL Globulin (2.2-3.9) gm/dL Albumin/Globulin Ratio (1.0-2.1) Ur Random Creatinine mg/dL Ur Random Sodium mmol/L Laboratory Results - last 24 hr 06/19/16 06/20/16 06/20/16 06:24 05:29 06:43 WBC 14.5 H RBC 3.66 L Hgb 9.6 L Hct 31.7 L MCV 86.7 MCH 26.3 L MCHC 30.3 L RDW 21.4 H Plt Count 132 MPV 8.7 Neut % (Auto) 87.0 H 81.4 H Lymph % (Auto) 6.0 L 9.0 L [place] % (Auto) 7.0 8.0 Eos % (Auto) 0.0 1.4 Baso % (Auto) 0.0 0.2 Neut # 14.0 H 11.8 H Lymph # 1.0 1.3 [place] # 1.1 H 1.2 H Eos # 0.0 0.2 Baso # 0.0 0.0 Neutrophils % (Manual) 85 H 88 H Band Neutrophils % 1 1 Lymphocytes % (Manual) 10 L 6 L Monocytes % (Manual) 4 3 Eosinophils % (Manual) 2 Platelet Estimate Normal Normal Hypochromasia (manual) Slight Slight Poikilocytosis (manual Slight Slight Anisocytosis (manual) Slight Slight Microcytosis (manual) Slight Macrocytosis (manual) Slight Target Cells Slight Tear Drop Cells Slight Slight Ovalocytes Slight Slight [place] Cells Moderate Slight Puncture Site Rr pCO2 32 L pO2 99 HCO3 21.2 ABG pH 7.39 ABG Total CO2 20.4 L ABG O2 Saturation 99.3 H ABG Base Excess -4.8 L ABG Hemoglobin 10.2 L ABG Carboxyhemoglobin 2.0 H POC ABG HHb (Measured) 0.7 ABG Methemoglobin 1.2 Oscar Test Pos A-a O2 Difference 75.0 Respiratory Index 0.8 Hgb O2 Saturation 96.1 Mechanical Rate 14 FiO2 30.0 Tidal Volume 500 PEEP 5 Sodium Potassium Chloride Carbon Dioxide Anion Gap BUN Creatinine Est GFR ( Amer) Est GFR (Non-Af Amer) Random Glucose Calcium Phosphorus Magnesium Total Bilirubin AST ALT Alkaline Phosphatase Total Protein Albumin Globulin Albumin/Globulin Ratio Ur Random Creatinine Ur Random Sodium 06/20/16 06/20/16 06:43 11:21 WBC RBC Hgb Hct MCV MCH MCHC RDW Plt Count MPV Neut % (Auto) Lymph % (Auto) [place] % (Auto) Eos % (Auto) Baso % (Auto) Neut # Lymph # [place] # Eos # Baso # Neutrophils % (Manual) Band Neutrophils % Lymphocytes % (Manual) Monocytes % (Manual) Eosinophils % (Manual) Platelet Estimate Hypochromasia (manual) Poikilocytosis (manual Anisocytosis (manual) Microcytosis (manual) Macrocytosis (manual) Target Cells Tear Drop Cells Ovalocytes [place] Cells Puncture Site pCO2 pO2 HCO3 ABG pH ABG Total CO2 ABG O2 Saturation ABG Base Excess ABG Hemoglobin ABG Carboxyhemoglobin POC ABG HHb (Measured) ABG Methemoglobin Oscar Test A-a O2 Difference Respiratory Index Hgb O2 Saturation Mechanical Rate FiO2 Tidal Volume PEEP Sodium 142 Potassium 2.7 L Chloride 111 H Carbon Dioxide 20 L Anion Gap 14 BUN 49 H Creatinine 1.5 H Est GFR ( Amer) 41 Est GFR (Non-Af Amer) 33 Random Glucose 51 L Calcium 5.7 L* Phosphorus 4.5 Magnesium 1.4 L Total Bilirubin 1.2 AST 14 ALT 16 Alkaline Phosphatase 91 Total Protein 4.2 L Albumin 1.7 L Globulin 2.5 Albumin/Globulin Ratio 0.7 L Ur Random Creatinine 54.4 Ur Random Sodium 49 Assessment/Plan (1) UTI (urinary tract infection) Current Visit: Yes Status: Acute Comment: Broad spectrum antibiotic Fine cultures Attending/Attestation - Attestation I have personally seen and examined this patient.: Yes I have fully participated in the care of the patient.: Yes I have reviewed all pertinent clinical information: Yes Notes (Text): 06/20/16 13:18 I have seen and examined the patient. Medical records, lab studies, and imaging were reviewed by me and a management plan was formulated on multidisciplinary rounds with resident Dr. Yoder. I agree with their above documented assessment and plan. Patient was extubated today to BIPAP. Patient is high risk for re-intubation, but is as optimized as possible. She is weak from her prolonged critical illness. She has an intermittent small bowel obstruction, neostigmine has helped partially. Patient's acute on chronic kidney disease is getting worse. She is becoming more oliguric. May need dialysis, but would be a poor candidate for this level of intervention. Goals of care will need to be addressed with the family. Critical Care Time 45 minutes. Multi-disciplinary rounds were performed with house staff, nursing, speech therapy, respiratory therapy, pharmacy and nutrition with integrated input from the primary team/attending and other consulting services. The documented time is cumulative and includes review of patient data/exams/labs/chart review and examination of the patient on rounds and throughout the day; time is exclusive of any procedures or teaching time.
[2016-06-20 06:47] LABS: BASO % 0.2 % (0.0-2.0); EOS # 0.2 K/uL (0.0-0.7); EOS % 1.4 % (0.0-4.0); HEMATOCRIT 31.7 % (34.0-47.0); LYMPH # 1.3 K/uL (1.0-4.3); MEAN CELL VOLUME 86.7 fL (81.0-99.0); MEAN CORPUSCULAR HEMOGLOBIN 26.3 pg (27.0-31.0); MEAN CORPUSCULAR HGB CONC 30.3 g/dL (33.0-37.0); MEAN PLATELET VOLUME 8.7 fL (7.2-11.7); MONO # 1.2 K/uL (0.0-0.8); PLATELET COUNT 132 K/uL (130-400); RED CELL DISTRIBUTION WIDTH 21.4 % (11.5-14.5); WHITE BLOOD COUNT 14.5 K/uL (4.8-10.8)
[2016-06-20 07:11] LABS: POTASSIUM 2.7 mmol/L (3.6-5.2)
[2016-06-20 07:13] LABS: ALB/GLOB RATIO 0.7 (1.0-2.1); BILIRUBIN,TOTAL 1.2 mg/dL (0.2-1.3); PHOSPHOROUS 4.5 mg/dL (2.5-4.5); TOTAL PROTEIN 4.2 g/dL (6.3-8.3)
[2016-06-20 07:14] LABS: MAGNESIUM 1.4 mg/dL (1.6-2.3)
[2016-06-20 08:03] LABS: CALCIUM 5.7 mg/dl (8.6-10.4)
[2016-06-20] MEDS ORDERED: Magnesium Sulfate 1 gm in D5W 1 GM/100 ML BAG IVPB ONE (08:11)
[2016-06-20 08:59] LABS: EOSINOPHIL 2 % (0-4); NEUTROPHIL 88 % (50-75); TOTAL CELLS COUNTED 100
[2016-06-20] MEDS: Calcium-Vit D 500 mg-200 Units Tab UD PO SCH (09:38)
[2016-06-20] MEDS: Potassium Chloride 20 mEq/15 ml LIQ UD PO SCH (09:43)
--- NOTE | 2016-06-20 10:10 | CP.PCM.PN ---
<Haresh Carr - Last Filed: 06/20/16 10:04> Subjective - Date & Time of Evaluation Date of Evaluation: 06/20/16 Time of Evaluation: 10:04 - Subjective Subjective: Cardiology Progress Note Dr. Byers Patient seen and examined at the bedside. No acute distress. No acute events overnight. Nursing staff reports no issues. The patient planned for extubation this morning. Medical condition is improving. ROS unable to be obtained 2/2 to intubation status. Objective - Vital Signs/Intake and Output Vital Signs (last 24 hours): Temp Pulse Resp BP Pulse Ox 97.1 F L 126 H 21 96/43 L 99 06/20/16 07:59 06/20/16 08:37 06/20/16 07:59 06/20/16 07:59 06/20/16 07:59 Intake and Output: 06/20/16 06/20/16 06:59 18:59 Intake Total 1200 300 Output Total 1134 79 Balance 66 221 - Medications Medications: Current Medications Albuterol/Ipratropium (Duoneb 3 Mg/0.5 Mg (3 Ml) Ud) 3 ml INH RQ6 [facility] Last Admin: 06/20/16 07:31 Dose: 3 ml Calcium/Vitamin D (Oyster Shell Calcium/Vitamin D 500 Mg-200 Iu) 1 tab PO DAILY [facility] Last Admin: 06/20/16 09:38 Dose: Not Given Furosemide (Lasix) 80 mg IVP Q24H [facility] Last Admin: 06/19/16 17:07 Dose: 80 mg Heparin Sodium (Porcine) (Heparin) 5,000 units SC Q12 [facility] Last Admin: 06/20/16 09:41 Dose: 5,000 units Levetiracetam 500 mg/ Sodium (Chloride) 105 mls @ 420 mls/hr IVPB Q12H [facility] Last Admin: 06/20/16 06:00 Dose: 420 mls/hr Tigecycline 50 mg/ Sodium (Chloride) 100 mls @ 100 mls/hr IVPB Q12H [facility] Last Admin: 06/20/16 01:30 Dose: 100 mls/hr Colistimethate Sodium 150 mg/ (Sodium Chloride) 100 mls @ 200 mls/hr IV Q24H [facility] Last Admin: 06/20/16 00:00 Dose: 200 mls/hr Metronidazole (Flagyl) 500 mg in 100 mls @ 100 mls/hr IVPB Q8H [facility] Last Admin: 06/20/16 08:33 Dose: 100 mls/hr Potassium Chloride (Potassium Chloride 10 Meq/100 Ml) 10 meq in 100 mls @ 100 mls/hr IVPB Q1H [facility] Stop: 06/20/16 12:14 Last Admin: 06/20/16 09:34 Dose: 100 mls/hr Albumin Human (Albumin Human 5% (12.5 Gm/250 Ml)) 500 mls @ 50 mls/hr IVPB Q10H [facility] Stop: 06/22/16 11:59 Neostigmine Methylsulfate (Neostigmine Methylsulfate) 2 mg IV Q24H [facility] Stop: 06/20/16 16:46 Last Admin: 06/19/16 17:42 Dose: 2 mg Pantoprazole Sodium (Protonix Inj) 40 mg IVP DAILY [facility] Last Admin: 06/20/16 09:41 Dose: 40 mg - Labs Labs: 06/20/16 06:43 06/20/16 06:43 PT 14.4 SECONDS (9.7-12.2) H 06/13/16 06:28 INR 1.3 06/13/16 06:28 APTT 34 SECONDS (21-34) 06/13/16 06:28 - Additional Findings Additional findings: - Constitutional Appears: Chronically Ill - Head Exam Head Exam: ATRAUMATIC, NORMOCEPHALIC Additional comments: ET Tube in place - Eye Exam Eye Exam: EOMI, Normal appearance Pupil Exam: NORMAL ACCOMODATION - ENT Exam ENT Exam: Mucous Membranes Moist - Neck Exam Neck exam: Positive for: Lymphadenopathy, Normal Inspection. Negative for: Tenderness - Respiratory Exam Respiratory Exam: NORMAL BREATHING PATTERN. absent: Respiratory Distress Additional comments: intubated PRVC settings: RR14, FiO2 30%, PEEP 5, Tvolume 500 - Cardiovascular Exam Cardiovascular Exam: Tachycardia, REGULAR RHYTHM, +S1, +S2. absent: Diastolic murmur, RRR, Systolic Murmur - GI/Abdominal Exam GI & Abdominal Exam: Normal Bowel Sounds, Soft. absent: Distended, Tenderness - Extremities Exam Extremities exam: Positive for: normal inspection, pedal pulses present ( diminished ) - Neurological Exam Neurological exam: Alert, CN II-XII Intact - Skin Skin Exam: Dry, Intact, Normal Color, Warm Assessment and Plan (1) Preprocedural cardiovascular examination Assessment & Plan: Patient planned for extubation this morning off pressers if patient is able to tolerate extubation, trach will be unnecessary patient remains tachycardic with frequent PVCs on tele Cardiac Risk Assessment: Moderate risk for Tracheostomy - Detsky index score: 20, Class II- moderate risk - Jayce risk index: 1- Low risk - Jackson score: 8, Class II- moderate risk - patients medical status is much improved 06/04/16 EKG: Sinus tachycardia, 109 bpm, normal physiologic axis, mildly prolonged DE interval, prolonged QTc, normal QRS duration, lateral infarct age undetermined (present on EKGs >1year), low voltage QRS 02/25/16 Echo: grade I abnormal relaxation pattern with preserved systolic function. Case Discussed with Dr. Zeeshan Carr PGY1 Status: Acute (2) Ventilator dependent Status: Resolved (3) Respiratory failure Status: Resolved (4) Diastolic CHF Status: Chronic <Vale Byers - Last Filed: 07/23/16 12:19> Objective - Vital Signs/Intake and Output Vital Signs (last 24 hours): Temp Pulse Resp BP Pulse Ox 97.4 F L 61 14 66/28 L 20 L 06/22/16 00:00 06/22/16 02:00 06/22/16 02:00 06/22/16 02:00 06/22/16 02:00 - Labs Labs: 06/21/16 06:36 06/21/16 06:36 PT 14.4 SECONDS (9.7-12.2) H 06/13/16 06:28 INR 1.3 06/13/16 06:28 APTT 34 SECONDS (21-34) 06/13/16 06:28 Attending/Attestation - Attestation I have personally seen and examined this patient.: Yes I have fully participated in the care of the patient.: Yes I have reviewed all pertinent clinical information, including history, physical exam and plan: Yes Notes (Text): 07/23/16 12:19 Not stable for trach continue pressors
--- NOTE | 2016-06-20 11:14 | RAD ---
HISTORY: Chest tube follow-up. Portable study 07:00. COMPARISON: June 19, 2016. Multiple serial examinations preceding the most recent study: FINDINGS: LUNGS: Stable consolidative changes primarily ring left lower lobe. PLEURA: Stable findings in the left pleural space including pleural effusion and chest tube. CARDIOVASCULAR: No significant interval change compared to the prior examination(s). Stable position of right IJ catheter. OSSEOUS STRUCTURES: No significant abnormalities. VISUALIZED UPPER ABDOMEN: Normal. OTHER FINDINGS: Satisfactory and stable position of endotracheal tube. IMPRESSION: No significant interval change compared to the prior examination(s).
[2016-06-20 11:54] LABS: CREATININE, RANDOM URINE 54.4 mg/dL
--- NOTE | 2016-06-20 12:51 | CP.PCM.PN ---
Subjective - Date & Time of Evaluation Date of Evaluation: 06/20/16 Time of Evaluation: 10:35 - Subjective Subjective: patient seen and examined. Extubated after a weaning trial and was placed on BiPAP Response to vocal commands Afebrile Had bowel movement Objective - Vital Signs/Intake and Output Vital Signs (last 24 hours): Temp Pulse Resp BP Pulse Ox 98 F 111 H 14 76/32 L 96 06/20/16 12:00 06/20/16 12:00 06/20/16 12:00 06/20/16 12:00 06/20/16 10:19 Intake and Output: 06/20/16 06/20/16 06:59 18:59 Intake Total 1200 950 Output Total 1134 164 Balance 66 786 - Medications Medications: Current Medications Albuterol/Ipratropium (Duoneb 3 Mg/0.5 Mg (3 Ml) Ud) 3 ml INH RQ6 [facility] Last Admin: 06/20/16 07:31 Dose: 3 ml Calcium/Vitamin D (Oyster Shell Calcium/Vitamin D 500 Mg-200 Iu) 1 tab PO DAILY [facility] Last Admin: 06/20/16 09:38 Dose: Not Given Furosemide (Lasix) 80 mg IVP Q24H [facility] Last Admin: 06/19/16 17:07 Dose: 80 mg Heparin Sodium (Porcine) (Heparin) 5,000 units SC Q12 [facility] Last Admin: 06/20/16 09:41 Dose: 5,000 units Levetiracetam 500 mg/ Sodium (Chloride) 105 mls @ 420 mls/hr IVPB Q12H [facility] Last Admin: 06/20/16 06:00 Dose: 420 mls/hr Tigecycline 50 mg/ Sodium (Chloride) 100 mls @ 100 mls/hr IVPB Q12H [facility] Last Admin: 06/20/16 01:30 Dose: 100 mls/hr Colistimethate Sodium 150 mg/ (Sodium Chloride) 100 mls @ 200 mls/hr IV Q24H [facility] Last Admin: 06/20/16 00:00 Dose: 200 mls/hr Metronidazole (Flagyl) 500 mg in 100 mls @ 100 mls/hr IVPB Q8H [facility] Last Admin: 06/20/16 08:33 Dose: 100 mls/hr Albumin Human (Albumin Human 5% (12.5 Gm/250 Ml)) 500 mls @ 50 mls/hr IVPB Q10H [facility] Stop: 06/22/16 11:59 Neostigmine Methylsulfate (Neostigmine Methylsulfate) 2 mg IV Q24H [facility] Stop: 06/20/16 16:46 Last Admin: 06/19/16 17:42 Dose: 2 mg Pantoprazole Sodium (Protonix Inj) 40 mg IVP DAILY [facility] Last Admin: 06/20/16 09:41 Dose: 40 mg - Labs Labs: 06/20/16 06:43 06/20/16 06:43 PT 14.4 SECONDS (9.7-12.2) H 06/13/16 06:28 INR 1.3 06/13/16 06:28 APTT 34 SECONDS (21-34) 06/13/16 06:28 - Head Exam Head Exam: NORMOCEPHALIC - Neck Exam Neck Exam: Normal Inspection - Respiratory Exam Respiratory Exam: Decreased Breath Sounds - Cardiovascular Exam Cardiovascular Exam: REGULAR RHYTHM - GI/Abdominal Exam GI & Abdominal Exam: Soft, Normal Bowel Sounds - Extremities Exam Extremities Exam: Normal Inspection - Neurological Exam Neurological Exam: Awake Assessment and Plan (1) Acute respiratory failure Assessment & Plan: eextubated after weaning tria Continue antibiotics Continue nebulizer treatm BiPAP as needed Status: Acute (2) Pleural effusion Status: Acute (3) UTI (urinary tract infection) Status: Acute
[2016-06-20 15:08] LABS: POTASSIUM 3.1 mmol/L (3.6-5.2)
[2016-06-20 15:11] LABS: CALCIUM 6.6 mg/dl (8.6-10.4)
--- NOTE | 2016-06-20 15:32 | CP.PCM.PN ---
Subjective - Date & Time of Evaluation Date of Evaluation: 06/20/16 Time of Evaluation: 07:00 - Subjective Subjective: THORACIC SURGERY PROGRESS NOTE FOR DR. FRIED GENERAL SURGERY PROGRESS NOTE FOR DR. VENTURA Patient seen and examined at bedside in the ICU. She remains intubated, on CPAP with plans for possible extubation this AM. She is alert and follows commands. She is off pressors. She continues to have high volume output from OG tube with 1650cc output over past 24 hours. However, she had 3 BMs yesterday. Chest tube remains on suction, with 130cc serosanguinous drainage over past 24 hours. Objective - Vital Signs/Intake and Output Vital Signs (last 24 hours): Temp Pulse Resp BP Pulse Ox 98 F 131 H 21 90/58 L 91 L 06/20/16 12:00 06/20/16 15:02 06/20/16 15:02 06/20/16 15:02 06/20/16 15:02 Intake and Output: 06/20/16 06/20/16 06:59 18:59 Intake Total 1200 1200 Output Total 1134 212 Balance 66 988 - Medications Medications: Current Medications Albuterol/Ipratropium (Duoneb 3 Mg/0.5 Mg (3 Ml) Ud) 3 ml INH RQ6 [facility] Last Admin: 06/20/16 13:12 Dose: 3 ml Calcium/Vitamin D (Oyster Shell Calcium/Vitamin D 500 Mg-200 Iu) 1 tab PO DAILY [facility] Last Admin: 06/20/16 09:38 Dose: Not Given Furosemide (Lasix) 80 mg IVP Q24H [facility] Last Admin: 06/19/16 17:07 Dose: 80 mg Heparin Sodium (Porcine) (Heparin) 5,000 units SC Q12 [facility] Last Admin: 06/20/16 09:41 Dose: 5,000 units Levetiracetam 500 mg/ Sodium (Chloride) 105 mls @ 420 mls/hr IVPB Q12H [facility] Last Admin: 06/20/16 06:00 Dose: 420 mls/hr Tigecycline 50 mg/ Sodium (Chloride) 100 mls @ 100 mls/hr IVPB Q12H [facility] Last Admin: 06/20/16 13:12 Dose: 100 mls/hr Colistimethate Sodium 150 mg/ (Sodium Chloride) 100 mls @ 200 mls/hr IV Q24H [facility] Last Admin: 06/20/16 00:00 Dose: 200 mls/hr Metronidazole (Flagyl) 500 mg in 100 mls @ 100 mls/hr IVPB Q8H [facility] Last Admin: 06/20/16 08:33 Dose: 100 mls/hr Albumin Human (Albutein 5% 500 Ml) 500 mls @ 50 mls/hr IVPB Q10H [facility] Stop: 06/22/16 15:44 Last Admin: 06/20/16 10:20 Dose: 50 mls/hr Neostigmine Methylsulfate (Neostigmine Methylsulfate) 2 mg IV Q24H [facility] Stop: 06/20/16 16:46 Last Admin: 06/19/16 17:42 Dose: 2 mg Pantoprazole Sodium (Protonix Inj) 40 mg IVP DAILY [facility] Last Admin: 06/20/16 09:41 Dose: 40 mg - Labs Labs: 06/20/16 06:43 06/20/16 14:40 PT 14.4 SECONDS (9.7-12.2) H 06/13/16 06:28 INR 1.3 06/13/16 06:28 APTT 34 SECONDS (21-34) 06/13/16 06:28 - Constitutional Appears: Non-toxic, No Acute Distress - Respiratory Exam Respiratory Exam: NORMAL BREATHING PATTERN. absent: Respiratory Distress Additional comments: On mechanical ventilation, CPAP Left chest tube in place on suction, 130cc output over past 24 hours, dressing with slight drainage - changed - Cardiovascular Exam Cardiovascular Exam: +S1, +S2 - Neurological Exam Neurological Exam: Alert, Awake Assessment and Plan - Assessment and Plan (Free Text) Assessment: 80yo F with left pleural effusion s/p left chest tube insertion via mini thoracotomy POD#7 - Continue chest tube on suction - Left chest tube with 130cc drainage over past 24 hours - Daily CXR - Dressing changed this AM - Discussed plan with Dr. Tino Euceda PGY-2
[2016-06-20] MEDS: Neostigmine Methylsulfate 3mg/3ml Syringe IV SCH (16:13)
--- NOTE | 2016-06-20 22:43 | CP.PCM.PN ---
Subjective - Date & Time of Evaluation Date of Evaluation: 06/20/16 Time of Evaluation: 10:20 - Subjective Subjective: patient seen and examined.Extubated after a weaning trial and was placed on BiPAP, Response to vocal commands Afebrile, no clinincal changes she had bowel movement Objective - Vital Signs/Intake and Output Vital Signs (last 24 hours): Temp Pulse Resp BP Pulse Ox 96.9 F L 90 20 88/41 L 93 L 06/20/16 16:00 06/20/16 21:17 06/20/16 19:03 06/20/16 19:03 06/20/16 18:02 Intake and Output: 06/20/16 06/21/16 18:59 06:59 Intake Total 1650 150 Output Total 255 10 Balance 1395 140 - Medications Medications: Current Medications Albuterol/Ipratropium (Duoneb 3 Mg/0.5 Mg (3 Ml) Ud) 3 ml INH RQ6 [facility] Last Admin: 06/20/16 19:20 Dose: 3 ml Calcium/Vitamin D (Oyster Shell Calcium/Vitamin D 500 Mg-200 Iu) 1 tab PO DAILY [facility] Last Admin: 06/20/16 09:38 Dose: Not Given Furosemide (Lasix) 80 mg IVP Q24H [facility] Last Admin: 06/20/16 16:10 Dose: 80 mg Heparin Sodium (Porcine) (Heparin) 5,000 units SC Q12 [facility] Last Admin: 06/20/16 22:17 Dose: 5,000 units Levetiracetam 500 mg/ Sodium (Chloride) 105 mls @ 420 mls/hr IVPB Q12H [facility] Last Admin: 06/20/16 17:35 Dose: 420 mls/hr Tigecycline 50 mg/ Sodium (Chloride) 100 mls @ 100 mls/hr IVPB Q12H [facility] Last Admin: 06/20/16 13:12 Dose: 100 mls/hr Colistimethate Sodium 150 mg/ (Sodium Chloride) 100 mls @ 200 mls/hr IV Q24H [facility] Last Admin: 06/20/16 00:00 Dose: 200 mls/hr Metronidazole (Flagyl) 500 mg in 100 mls @ 100 mls/hr IVPB Q8H [facility] Last Admin: 06/20/16 16:03 Dose: 100 mls/hr Albumin Human (Albutein 5% 500 Ml) 500 mls @ 50 mls/hr IVPB Q10H [facility] Stop: 06/22/16 15:44 Last Admin: 06/20/16 10:20 Dose: 50 mls/hr Potassium Chloride (Potassium Chloride 20 Meq/100 Ml) 20 meq in 100 mls @ 50 mls/hr IVPB Q2 [facility] Stop: 06/20/16 23:59 Last Admin: 06/20/16 22:18 Dose: 50 mls/hr Pantoprazole Sodium (Protonix Inj) 40 mg IVP DAILY [facility] Last Admin: 06/20/16 09:41 Dose: 40 mg - Labs Labs: 06/20/16 06:43 06/20/16 14:40 PT 14.4 SECONDS (9.7-12.2) H 06/13/16 06:28 INR 1.3 06/13/16 06:28 APTT 34 SECONDS (21-34) 06/13/16 06:28 - Constitutional Appears: No Acute Distress - Head Exam Head Exam: ATRAUMATIC, NORMAL INSPECTION, NORMOCEPHALIC - Eye Exam Eye Exam: EOMI, Normal appearance, PERRL Pupil Exam: NORMAL ACCOMODATION, PERRL - Respiratory Exam Respiratory Exam: Decreased Breath Sounds, Rales, Rhonchi - Cardiovascular Exam Cardiovascular Exam: REGULAR RHYTHM, +S1, +S2. absent: Murmur - GI/Abdominal Exam GI & Abdominal Exam: Soft, Normal Bowel Sounds. absent: Tenderness Assessment and Plan (1) UTI (urinary tract infection) Status: Acute (2) Dehydration Status: Acute (3) Hypotension Status: Acute (4) Acute onset sepsis Status: Acute (5) Respiratory failure Status: Acute (6) Hypertension Status: Acute (7) Pneumonia involving left lung Status: Acute (8) Pleural effusion Status: Acute
--- NOTE | 2016-06-20 23:04 | CP.PCM.PN ---
Subjective - Date & Time of Evaluation Date of Evaluation: 06/20/16 Time of Evaluation: 23:04 - Subjective Subjective: afebrile,AWAKE EXTUBATED, ONBIPAP OFF PRESSORS, TACHYCARDIC NGT - BILIOUS DRAINGE 1650CC/12HRS S/P LT. CHEST TUBE DRAINING SEROSANGUINEOUS DRAINAGE- 130CC s/p RT IJ CATHETER PLACED 06/11/16 S/P FOLEYS CHANGE 06/18/16. ROS. HEENT : N.head tilted to the left. OGT -DRAINING BILIOUS DRAINAGE Resp : No cough, wheezing ,pleuritic CP ,or hemoptysis LT. CT IN PLACE. Cardio : TACHYCARDIC GI : ABDOMEN SOFT, n/v ,diarrhea or GI bleeding . HELIUM ARC WELDER : No headache, vertigo, focal deficit. Musculoskel : No joint swelling , Derm : No rash Psych : Normal affect. Ext : No swelling ,calf pain PE. Pt. is alert awake in no distress.ON VENTILATOR V.S As noted in the chart Head ,ear nose,throat and eyes : Normal. Neck : Supple with normal carotids. Lungs: RHONCHI B/L +VE LT CHEST TUBE IN PLACE Heart : S1 & S2 normal with S4. No murmur.TACHYCARDIC Abd : Soft , LESS DISTENDED BS +VE Neuro : Moves all ext. with no localized deficit. Ext : + EDEMA with intact pulses.Non tender calves Derm : No rashes or decubitus ulcer. LABS/RADIOLOGY: 06/20 WBC14.5 H/H 9.6/321.7-IMPROVING 06/20 CREAT 1.5/BUN 51 06/19 CT ABD/PELVIS PO CONTRAST CT abdomen and pelvis with PO contrast (06/19/16) : B/l pleural effusions, consolidations. Wall thickening of proximal duodenum. Marked caliber change at distal duodenum with dilated small bowel loops distally. Obstruction not excluded. Large retained fecal materal. Cholelithiasis. Anasarca. Moderate abdominal and pelvic ascites (see full report). pleural fluid 06/16/16 FINDINGS NOTED -POST TRAUMATIC-HGIC,T.AZ <3.0, GLUCOSE N - LDH HIGH STOOL C. DIFFICILE NEGATIVE STOOL -VE LEUKOCYTES urine culture 06/18 GPC bronchial washings +ve Acinetobacter Baumanni SPUTUM CULTURE+VE ACINETOBACTER BOUMANNI S - tYGACIL BLOOD CULTURES 06/13/16, 06/16/16 -VE .LFTS 06/17 N .. URINE CULTURE +VE PROTEUS MIRABILIS -MDR ASSESSMENT/PLAN : IMPRESSION; - S/P RESPIRATORY FAILURE/ EXTUBATED 06/20/16 - VAP/HAP -[id number] -S/P LEFT-SIDED THORACENTESIS/ chest tube 06/13 - SEPTIC SHOCK /HYPOTENSION-MULTIFACTORIAL - [id number]-RESISTANT PROTEUS MIRABILIS -CHF - ?/SBO VS ILEUS -DM. -HX MANISH- MASTOIDITIS/CHOLESTEATOMA. PLAN; DC IV VANCOMYCIN.06/13 ON IV tYGACIL 100 MG LOADING DOSE FOLLOWED BY 50 EVERY 12 HOURLY.06/14 ON IV Colistin 150 mg every 24 hourly. 06/16/16 ONIV FLAGYL 500MG IV Q8HRLY ADDED 06/17/16 MONITOR RENAL FUNCTION CLOSELY. F/U URINE CULTURES pulmonary toilet. CASE DISCUSSED WITH STAFF. Objective - Vital Signs/Intake and Output Vital Signs (last 24 hours): Temp Pulse Resp BP Pulse Ox 96.9 F L 90 20 88/41 L 93 L 06/20/16 16:00 06/20/16 21:17 06/20/16 19:03 06/20/16 19:03 06/20/16 18:02 Intake and Output: 06/20/16 06/21/16 18:59 06:59 Intake Total 1650 150 Output Total 255 10 Balance 1395 140 - Medications Medications: Current Medications Albuterol/Ipratropium (Duoneb 3 Mg/0.5 Mg (3 Ml) Ud) 3 ml INH RQ6 [facility] Last Admin: 06/20/16 19:20 Dose: 3 ml Calcium/Vitamin D (Oyster Shell Calcium/Vitamin D 500 Mg-200 Iu) 1 tab PO DAILY [facility] Last Admin: 06/20/16 09:38 Dose: Not Given Furosemide (Lasix) 80 mg IVP Q24H [facility] Last Admin: 06/20/16 16:10 Dose: 80 mg Heparin Sodium (Porcine) (Heparin) 5,000 units SC Q12 [facility] Last Admin: 06/20/16 22:17 Dose: 5,000 units Levetiracetam 500 mg/ Sodium (Chloride) 105 mls @ 420 mls/hr IVPB Q12H [facility] Last Admin: 06/20/16 17:35 Dose: 420 mls/hr Tigecycline 50 mg/ Sodium (Chloride) 100 mls @ 100 mls/hr IVPB Q12H [facility] Last Admin: 06/20/16 13:12 Dose: 100 mls/hr Colistimethate Sodium 150 mg/ (Sodium Chloride) 100 mls @ 200 mls/hr IV Q24H [facility] Last Admin: 06/20/16 00:00 Dose: 200 mls/hr Metronidazole (Flagyl) 500 mg in 100 mls @ 100 mls/hr IVPB Q8H [facility] Last Admin: 06/20/16 16:03 Dose: 100 mls/hr Albumin Human (Albutein 5% 500 Ml) 500 mls @ 50 mls/hr IVPB Q10H [facility] Stop: 06/22/16 15:44 Last Admin: 06/20/16 10:20 Dose: 50 mls/hr Potassium Chloride (Potassium Chloride 20 Meq/100 Ml) 20 meq in 100 mls @ 50 mls/hr IVPB Q2 [facility] Stop: 06/20/16 23:59 Last Admin: 06/20/16 22:18 Dose: 50 mls/hr Pantoprazole Sodium (Protonix Inj) 40 mg IVP DAILY [facility] Last Admin: 06/20/16 09:41 Dose: 40 mg - Labs Labs: 06/20/16 06:43 06/20/16 14:40 PT 14.4 SECONDS (9.7-12.2) H 06/13/16 06:28 INR 1.3 06/13/16 06:28 APTT 34 SECONDS (21-34) 06/13/16 06:28 Assessment and Plan (1) UTI (urinary tract infection) Status: Acute (2) Dehydration Status: Acute (3) Acute respiratory failure Status: Acute (4) COPD (chronic obstructive pulmonary disease) Status: Acute (5) Hypotension Status: Acute (6) Acute onset sepsis Status: Acute
[2016-06-21] MEDS: Albuterol-Ipratrop 3 mg / 0.5 (3 ml) UD INH SCH ×2 (01:15→07:43)
[2016-06-21] MEDS: levETIRAcetam 500 MG in Sodium Chloride 0.9% 100 ML IVPB SCH ×2 (06:00→17:32)
[2016-06-21 06:41] LABS: BASO % 0.1 % (0.0-2.0); EOS # 0.2 K/uL (0.0-0.7); EOS % 1.7 % (0.0-4.0); HEMATOCRIT 28.6 % (34.0-47.0); LYMPH # 1.5 K/uL (1.0-4.3); LYMPH % 11.5 % (20.0-40.0); MEAN CELL VOLUME 86.8 fL (81.0-99.0); MEAN CORPUSCULAR HEMOGLOBIN 26.3 pg (27.0-31.0); MEAN CORPUSCULAR HGB CONC 30.3 g/dL (33.0-37.0); MEAN PLATELET VOLUME 9.3 fL (7.2-11.7); MONO # 1.2 K/uL (0.0-0.8); MONO % 8.8 % (0.0-10.0); NRBC % 0.1 % (0.0-2.0); RED CELL DISTRIBUTION WIDTH 22.3 % (11.5-14.5); WHITE BLOOD COUNT 13.5 K/uL (4.8-10.8)
[2016-06-21 06:51] LABS: POTASSIUM 3.7 mmol/L (3.6-5.2)
[2016-06-21 06:53] LABS: BILIRUBIN,TOTAL 1.6 mg/dL (0.2-1.3)
[2016-06-21 06:54] LABS: CALCIUM 6.5 mg/dl (8.6-10.4); PHOSPHOROUS 5.1 mg/dL (2.5-4.5); TOTAL PROTEIN 4.7 g/dL (6.3-8.3)
[2016-06-21 06:55] LABS: MAGNESIUM 1.5 mg/dL (1.6-2.3)
--- NOTE | 2016-06-21 07:59 | CP.PCM.PN ---
Subjective - Date & Time of Evaluation Date of Evaluation: 06/21/16 Time of Evaluation: 07:55 - Subjective Subjective: Pt not responsive on pressors Objective - Vital Signs/Intake and Output Vital Signs (last 24 hours): Temp Pulse Resp BP Pulse Ox 98.1 F 91 H 15 95/27 L 97 06/21/16 04:00 06/21/16 07:43 06/21/16 06:01 06/21/16 06:01 06/21/16 06:01 Intake and Output: 06/21/16 06/21/16 06:59 18:59 Intake Total 1100 Output Total 246 Balance 854 - Medications Medications: Current Medications Albuterol/Ipratropium (Duoneb 3 Mg/0.5 Mg (3 Ml) Ud) 3 ml INH RQ6 [facility] Last Admin: 06/21/16 07:43 Dose: 3 ml Calcium/Vitamin D (Oyster Shell Calcium/Vitamin D 500 Mg-200 Iu) 1 tab PO DAILY [facility] Last Admin: 06/20/16 09:38 Dose: Not Given Furosemide (Lasix) 80 mg IVP Q24H [facility] Last Admin: 06/20/16 16:10 Dose: 80 mg Heparin Sodium (Porcine) (Heparin) 5,000 units SC Q12 [facility] Last Admin: 06/20/16 22:17 Dose: 5,000 units Levetiracetam 500 mg/ Sodium (Chloride) 105 mls @ 420 mls/hr IVPB Q12H [facility] Last Admin: 06/21/16 06:00 Dose: 420 mls/hr Tigecycline 50 mg/ Sodium (Chloride) 100 mls @ 100 mls/hr IVPB Q12H [facility] Last Admin: 06/21/16 01:33 Dose: 100 mls/hr Colistimethate Sodium 150 mg/ (Sodium Chloride) 100 mls @ 200 mls/hr IV Q24H [facility] Last Admin: 06/21/16 00:30 Dose: 200 mls/hr Metronidazole (Flagyl) 500 mg in 100 mls @ 100 mls/hr IVPB Q8H [facility] Last Admin: 06/20/16 23:29 Dose: 100 mls/hr Albumin Human (Albutein 5% 500 Ml) 500 mls @ 50 mls/hr IVPB Q10H [facility] Stop: 06/22/16 15:44 Last Admin: 06/20/16 23:22 Dose: 50 mls/hr Dextrose (Dextrose 5% In Water 1000 Ml) 1,000 mls @ 50 mls/hr IV .Q20H [facility] Pantoprazole Sodium (Protonix Inj) 40 mg IVP DAILY [facility] Last Admin: 06/20/16 09:41 Dose: 40 mg - Labs Labs: 06/21/16 06:36 06/21/16 06:36 PT 14.4 SECONDS (9.7-12.2) H 06/13/16 06:28 INR 1.3 06/13/16 06:28 APTT 34 SECONDS (21-34) 06/13/16 06:28 - Constitutional Appears: Older Than Stated Age, Chronically Ill - Head Exam Head Exam: NORMOCEPHALIC - ENT Exam ENT Exam: Mucous Membranes Moist - Respiratory Exam Respiratory Exam: Decreased Breath Sounds, Respiratory Distress - Cardiovascular Exam Cardiovascular Exam: Tachycardia - GI/Abdominal Exam GI & Abdominal Exam: Normal Bowel Sounds - Exam External exam: Swelling - Extremities Exam Extremities Exam: Pedal Edema - Neurological Exam Neurological Exam: absent: Alert, Oriented x3 - Psychiatric Exam Psychiatric exam: absent: Normal Affect, Normal Mood - Skin Skin Exam: Pallor Assessment and Plan (1) JERRY (acute kidney injury) Assessment & Plan: Pt guarded condition poor prognosis Status: Acute (2) Respiratory failure Status: Resolved (3) Ventilator dependent Status: Resolved
[2016-06-21] MEDS: metroNIDAZOLE IV 500 mg/100 ml 500 MG/100 ML BAG IVPB SCH ×2 (08:27→16:25)
--- NOTE | 2016-06-21 09:11 | CP.PCM.PN ---
Subjective - Date & Time of Evaluation Date of Evaluation: 06/21/16 Time of Evaluation: 07:00 - Subjective Subjective: THORACIC SURGERY PROGRESS NOTE FOR DR. FRIED GENERAL SURGERY PROGRESS NOTE FOR DR. VENTURA Patient seen and examined at bedside in the ICU. She was extubated yesterday and is currently on BIPAP. She is alert and follows commands. She had 3 large BMs last night. Chest tube remains on suction, with 8cc serosanguinous drainage over past 24 hours. Objective - Vital Signs/Intake and Output Vital Signs (last 24 hours): Temp Pulse Resp BP Pulse Ox 98.1 F 86 10 L 101/33 L 90 L 06/21/16 04:00 06/21/16 08:00 06/21/16 08:00 06/21/16 08:00 06/21/16 08:00 Intake and Output: 06/21/16 06/21/16 06:59 18:59 Intake Total 1100 50 Output Total 246 50 Balance 854 0 - Medications Medications: Current Medications Albuterol/Ipratropium (Duoneb 3 Mg/0.5 Mg (3 Ml) Ud) 3 ml INH RQ6 [facility] Last Admin: 06/21/16 07:43 Dose: 3 ml Calcium/Vitamin D (Oyster Shell Calcium/Vitamin D 500 Mg-200 Iu) 1 tab PO DAILY [facility] Last Admin: 06/20/16 09:38 Dose: Not Given Furosemide (Lasix) 80 mg IVP Q24H [facility] Last Admin: 06/20/16 16:10 Dose: 80 mg Heparin Sodium (Porcine) (Heparin) 5,000 units SC Q12 [facility] Last Admin: 06/20/16 22:17 Dose: 5,000 units Levetiracetam 500 mg/ Sodium (Chloride) 105 mls @ 420 mls/hr IVPB Q12H [facility] Last Admin: 06/21/16 06:00 Dose: 420 mls/hr Tigecycline 50 mg/ Sodium (Chloride) 100 mls @ 100 mls/hr IVPB Q12H [facility] Last Admin: 06/21/16 01:33 Dose: 100 mls/hr Colistimethate Sodium 150 mg/ (Sodium Chloride) 100 mls @ 200 mls/hr IV Q24H [facility] Last Admin: 06/21/16 00:30 Dose: 200 mls/hr Metronidazole (Flagyl) 500 mg in 100 mls @ 100 mls/hr IVPB Q8H [facility] Last Admin: 06/21/16 08:27 Dose: 100 mls/hr Albumin Human (Albutein 5% 500 Ml) 500 mls @ 50 mls/hr IVPB Q10H [facility] Stop: 06/22/16 15:44 Last Admin: 06/20/16 23:22 Dose: 50 mls/hr Dextrose (Dextrose 5% In Water 1000 Ml) 1,000 mls @ 50 mls/hr IV .Q20H [facility] Last Admin: 06/21/16 07:15 Dose: 50 mls/hr Pantoprazole Sodium (Protonix Inj) 40 mg IVP DAILY [facility] Last Admin: 06/20/16 09:41 Dose: 40 mg - Labs Labs: 06/21/16 06:36 06/21/16 06:36 PT 14.4 SECONDS (9.7-12.2) H 06/13/16 06:28 INR 1.3 06/13/16 06:28 APTT 34 SECONDS (21-34) 06/13/16 06:28 - Constitutional Appears: Non-toxic, No Acute Distress, Chronically Ill - Respiratory Exam Respiratory Exam: NORMAL BREATHING PATTERN. absent: Respiratory Distress Additional comments: Left chest tube in place on suction, 8cc output over past 24 hours - Cardiovascular Exam Cardiovascular Exam: +S1, +S2 - Neurological Exam Neurological Exam: Alert, Awake - Skin Skin Exam: Normal Color, Warm Assessment and Plan - Assessment and Plan (Free Text) Assessment: 80yo F with left pleural effusion s/p left chest tube insertion via mini thoracotomy POD#8 - Extubated, on BIPAP - Continue chest tube on suction - Left chest tube on suction with 8cc drainage over past 24 hours - Daily CXR - Discussed plan with Dr. Tino Euceda PGY-2
[2016-06-21 09:22] LABS: ABG ALLEN TEST POS; ARTERIAL BLOOD HGB O2 SAT 96.9 % (95.0-98.0); CARBOXYHEMOGLOBIN 1.5 % (0.5-1.5); DRAW SITE RR; HHB 0.6 % (0.0-5.0)
[2016-06-21] MEDS: Calcium-Vit D 500 mg-200 Units Tab UD PO SCH (10:52)
[2016-06-21 11:16] LABS: CORTISOL AM 16.2 ug/dL (4.46-22.7)
[2016-06-21] MEDS ORDERED: Dextrose 50% SYRINGE Inj (50 ml) ONE (11:37)
--- NOTE | 2016-06-21 13:18 | RAD ---
HISTORY: Left chest tube placement. Portable study 07:00. COMPARISON: Multiple serial examinations preceding the most recent study: June 20, 2016. FINDINGS: LUNGS: Stable infiltrates left PLEURA: Greater than right stable finding in left pleural space including partially loculated pleural effusion and chest tube. CARDIOVASCULAR: Cardiomegaly. No evidence of acute, significant cardiovascular disease. OSSEOUS STRUCTURES: No significant abnormalities. VISUALIZED UPPER ABDOMEN: Normal. OTHER FINDINGS: Removal of support apparatus since the prior study: Patient has been extubated in the nasogastric tube is been removed in the interim. IJ catheter in stable satisfactory position. IMPRESSION: No significant interval change compared to the prior examination(s).
--- NOTE | 2016-06-21 13:31 | CP.CCUPN ---
CCU Subjective - Physician Review Events Since Last Encounter (Free Text): 06/21/16 13:22 patient appears clinically worsening, obtunded. CCU Objective - Vital Signs / Intake & Output Vital Signs (Last 4 hours): Vital Signs Pulse Resp BP Pulse Ox 06/21/16 12:00 101 H 10 L 100/45 L 88 L 06/21/16 11:00 94 H 10 L 96/37 L 89 L 06/21/16 10:18 107 H 11 L 116/37 L 98 06/21/16 10:17 105 H 11 L 105/32 L 89 L 06/21/16 10:16 105 H 11 L 124/44 L 95 06/21/16 10:15 113 H 10 L 132/63 96 06/21/16 10:14 117 H 13 110/45 L 94 L 06/21/16 10:01 100 H 11 L 104/38 L 87 L 06/21/16 10:00 90 10 L 06/21/16 09:35 98 H 8 L 95/34 L 98 06/21/16 09:34 98 H 11 L 100/34 L 93 L 06/21/16 09:33 98 H 8 L 101/33 L 100 06/21/16 09:32 95 H 11 L 105/48 L 100 06/21/16 09:31 92 H 12 72/48 L 95 Intake and Output (Last 8hrs): Intake & Output 06/20/16 06/21/16 06/21/16 22:59 06:59 14:59 Intake Total 900 700 50 Output Total 114 190 50 Balance 786 510 0 Weight 134 lb 11.2 oz Intake: Intake, IV Amount 900 700 50 Right Medial Port 200 Right Proximal Port 400 400 50 Internal Jugular right distal 300 300 Output: Chest Tube Drainage 10 0 Left Lateral Chest 10 0 Urine 103 190 50 Urethral (Marrufo) 103 190 50 Stool 1 - Physical Exam Physical Exam Limitations: Positive for: Altered Mental Status Head: Positive for: Atraumatic, Normocephalic Pupils: Positive for: PERRL Extroacular Muscles: Positive for: EOMI Conjunctiva: Positive for: Normal Mouth: Positive for: Moist Mucous Membranes Respiratory/Chest: Positive for: Good Air Exchange, Decreased Breath Sounds Cardiovascular: Positive for: Tachycardic Upper Extremity: Positive for: Normal Inspection, NORMAL PULSES. Negative for: Cyanosis, Edema Lower Extremity: Positive for: Normal Inspection, NORMAL PULSES. Negative for: Edema, CALF TENDERNESS Neurological: Positive for: GCS=15, CN II-XII Intact Skin: Positive for: Warm, Dry Psychiatric: Positive for: Alert, Oriented x 3 - Medications Active Medications: Active Medications Generic Name Dose Route Start Last Admin Trade Name Freq PRN Reason Stop Dose Admin Calcium/Vitamin D 1 tab 06/18/16 10:00 06/21/16 10:52 Oyster Shell Calcium/Vitamin D 500 Mg-200 Iu PO Not Given DAILY [facility] Heparin Sodium (Porcine) 5,000 units 06/17/16 10:00 06/21/16 10:51 Heparin SC 5,000 units Q12 [facility] Administration Levetiracetam 500 mg/ Sodium 105 mls @ 420 mls/hr 06/07/16 18:30 06/21/16 06: 00 Chloride IVPB 420 mls/hr Q12H [facility] Administration Tigecycline 50 mg/ Sodium 100 mls @ 100 mls/hr 06/15/16 02:00 06/21/16 01:33 Chloride IVPB 100 mls/hr Q12H [facility] Administration Colistimethate Sodium 150 mg/ 100 mls @ 200 mls/hr 06/17/16 00:00 06/21/16 00 :30 Sodium Chloride IV 200 mls/hr Q24H [facility] Administration Metronidazole 500 mg in 100 mls @ 100 mls/hr 06/18/16 00:00 06/21/16 08:27 Flagyl IVPB 100 mls/hr Q8H [facility] Administration Albumin Human 500 mls @ 50 mls/hr 06/20/16 13:45 06/21/16 10:00 Albutein 5% 500 Ml IVPB 06/22/16 15:44 50 mls/hr Q10H [facility] Administration Dextrose 1,000 mls @ 60 mls/hr 06/21/16 11:36 Dextrose 10% In Water IV .[id number] [facility] Pantoprazole Sodium 40 mg 06/05/16 10:00 06/21/16 10:51 Protonix Inj IVP 40 mg DAILY [facility] Administration - Patient Studies Lab Studies: Microbiology Studies 06/16/16 22:40 Blood Culture - Preliminary Blood-Thru Central Line NO GROWTH AFTER 4 DAYS 06/16/16 23:45 Blood Culture - Preliminary Blood-Thru Central Line NO GROWTH AFTER 4 DAYS 06/18/16 19:00 Urine Culture - Preliminary Urine,Marrufo Gram Positive Cocci 06/17/16 Unknown Stool Culture - Final Stool NO SALMONELLA, SHIGELLA OR CAMPYLOBACTER ISOLATED. Lab Studies 06/21/16 06/21/16 06/21/16 Range/Units 11:32 09:18 08:46 WBC (4.8-10.8) K/uL RBC (3.80-5.20) Mil/uL Hgb (11.0-16.0) g/dL Hct (34.0-47.0) % MCV (81.0-99.0) fL MCH (27.0-31.0) pg MCHC (33.0-37.0) g/dL RDW (11.5-14.5) % Plt Count (130-400) K/uL MPV (7.2-11.7) fL Neut % (Auto) (50.0-75.0) % Lymph % (Auto) (20.0-40.0) % [place] % (Auto) (0.0-10.0) % Eos % (Auto) (0.0-4.0) % Baso % (Auto) (0.0-2.0) % Neut # (1.8-7.0) K/uL Lymph # (1.0-4.3) K/uL [place] # (0.0-0.8) K/uL Eos # (0.0-0.7) K/uL Baso # (0.0-0.2) K/uL Puncture Site Rr pCO2 49 H (35-45) mm/Hg pO2 109 H (80-100) mm/Hg HCO3 17.5 L (21-28) mmol/L ABG pH 7.18 L* (7.35-7.45) ABG Total CO2 19.8 L (22-28) mmol/L ABG O2 Saturation 99.4 H (95-98) % ABG Base Excess -9.6 L (-2.0-3.0) mmol/L ABG Hemoglobin 8.4 L (11.7-17.4) g/dL ABG Carboxyhemoglobin 1.5 (0.5-1.5) % POC ABG HHb (Measured) 0.6 (0.0-5.0) % ABG Methemoglobin 1.0 (0.0-3.0) % Oscar Test Pos A-a O2 Difference 115.0 mm/Hg Respiratory Index 1.1 Hgb O2 Saturation 96.9 (95.0-98.0) % FiO2 40.0 % Inspiratory BiPAP 12 Expiratory BiPAP 6 Crit Value Called To Dr davina roblero Crit Value Called By Katharina prieto urban redevelopment specialist Crit Value Read Back Y Blood Gas Notified Time 925 Sodium (132-148) mmol/L Potassium (3.6-5.2) mmol/L Chloride (98-107) mmol/L Carbon Dioxide (22-30) mmol/L Anion Gap (10-20) BUN (7-17) mg/dL Creatinine (0.7-1.2) MG/DL Est GFR ( Amer) Est GFR (Non-Af Amer) POC Glucose (mg/dL) 52 L 42 L (65-110) mg/dL Random Glucose (65-105) mg/dL Calcium (8.6-10.4) mg/dl Phosphorus (2.5-4.5) mg/dL Magnesium (1.6-2.3) mg/dL Total Bilirubin (0.2-1.3) mg/dL AST (14-36) U/L ALT (9-52) U/L Alkaline Phosphatase (38-126) U/L Total Protein (6.3-8.3) g/dL Albumin (3.5-5.0) g/dL Globulin (2.2-3.9) gm/dL Albumin/Globulin Ratio (1.0-2.1) Cortisol AM Sample (4.46-22.7) ug/dL 06/21/16 06/21/16 06/21/16 Range/Units 07:08 06:36 06:36 WBC 13.5 H (4.8-10.8) K/uL RBC 3.30 L (3.80-5.20) Mil/uL Hgb 8.7 L (11.0-16.0) g/dL Hct 28.6 L (34.0-47.0) % MCV 86.8 (81.0-99.0) fL MCH 26.3 L (27.0-31.0) pg MCHC 30.3 L (33.0-37.0) g/dL RDW 22.3 H (11.5-14.5) % Plt Count 137 (130-400) K/uL MPV 9.3 (7.2-11.7) fL Neut % (Auto) 77.9 H (50.0-75.0) % Lymph % (Auto) 11.5 L (20.0-40.0) % [place] % (Auto) 8.8 (0.0-10.0) % Eos % (Auto) 1.7 (0.0-4.0) % Baso % (Auto) 0.1 (0.0-2.0) % Neut # 10.5 H (1.8-7.0) K/uL Lymph # 1.5 (1.0-4.3) K/uL [place] # 1.2 H (0.0-0.8) K/uL Eos # 0.2 (0.0-0.7) K/uL Baso # 0.0 (0.0-0.2) K/uL Puncture Site pCO2 (35-45) mm/Hg pO2 (80-100) mm/Hg HCO3 (21-28) mmol/L ABG pH (7.35-7.45) ABG Total CO2 (22-28) mmol/L ABG O2 Saturation (95-98) % ABG Base Excess (-2.0-3.0) mmol/L ABG Hemoglobin (11.7-17.4) g/dL ABG Carboxyhemoglobin (0.5-1.5) % POC ABG HHb (Measured) (0.0-5.0) % ABG Methemoglobin (0.0-3.0) % Oscar Test A-a O2 Difference mm/Hg Respiratory Index Hgb O2 Saturation (95.0-98.0) % FiO2 % Inspiratory BiPAP Expiratory BiPAP Crit Value Called To Crit Value Called By Crit Value Read Back Blood Gas Notified Time Sodium 143 (132-148) mmol/L Potassium 3.7 (3.6-5.2) mmol/L Chloride 111 H (98-107) mmol/L Carbon Dioxide 19 L (22-30) mmol/L Anion Gap 17 (10-20) BUN 50 H (7-17) mg/dL Creatinine 1.9 H (0.7-1.2) MG/DL Est GFR ( Amer) 31 Est GFR (Non-Af Amer) 26 POC Glucose (mg/dL) 43 L (65-110) mg/dL Random Glucose 38 L* D (65-105) mg/dL Calcium 6.5 L (8.6-10.4) mg/dl Phosphorus 5.1 H (2.5-4.5) mg/dL Magnesium 1.5 L (1.6-2.3) mg/dL Total Bilirubin 1.6 H (0.2-1.3) mg/dL AST 13 L (14-36) U/L ALT 18 (9-52) U/L Alkaline Phosphatase 86 (38-126) U/L Total Protein 4.7 L (6.3-8.3) g/dL Albumin 2.3 L D (3.5-5.0) g/dL Globulin 2.4 (2.2-3.9) gm/dL Albumin/Globulin Ratio 1.0 (1.0-2.1) Cortisol AM Sample 16.2 (4.46-22.7) ug/dL 06/20/16 06/20/16 Range/Units 14:57 14:40 WBC (4.8-10.8) K/uL RBC (3.80-5.20) Mil/uL Hgb (11.0-16.0) g/dL Hct (34.0-47.0) % MCV (81.0-99.0) fL MCH (27.0-31.0) pg MCHC (33.0-37.0) g/dL RDW (11.5-14.5) % Plt Count (130-400) K/uL MPV (7.2-11.7) fL Neut % (Auto) (50.0-75.0) % Lymph % (Auto) (20.0-40.0) % [place] % (Auto) (0.0-10.0) % Eos % (Auto) (0.0-4.0) % Baso % (Auto) (0.0-2.0) % Neut # (1.8-7.0) K/uL Lymph # (1.0-4.3) K/uL [place] # (0.0-0.8) K/uL Eos # (0.0-0.7) K/uL Baso # (0.0-0.2) K/uL Puncture Site pCO2 (35-45) mm/Hg pO2 (80-100) mm/Hg HCO3 (21-28) mmol/L ABG pH (7.35-7.45) ABG Total CO2 (22-28) mmol/L ABG O2 Saturation (95-98) % ABG Base Excess (-2.0-3.0) mmol/L ABG Hemoglobin (11.7-17.4) g/dL ABG Carboxyhemoglobin (0.5-1.5) % POC ABG HHb (Measured) (0.0-5.0) % ABG Methemoglobin (0.0-3.0) % Oscar Test A-a O2 Difference mm/Hg Respiratory Index Hgb O2 Saturation (95.0-98.0) % FiO2 % Inspiratory BiPAP Expiratory BiPAP Crit Value Called To Crit Value Called By Crit Value Read Back Blood Gas Notified Time Sodium 141 (132-148) mmol/L Potassium 3.1 L (3.6-5.2) mmol/L Chloride 110 H (98-107) mmol/L Carbon Dioxide 19 L (22-30) mmol/L Anion Gap 15 (10-20) BUN 50 H (7-17) mg/dL Creatinine 1.8 H (0.7-1.2) MG/DL Est GFR ( Amer) 33 Est GFR (Non-Af Amer) 27 POC Glucose (mg/dL) (65-110) mg/dL Random Glucose 53 L (65-105) mg/dL Calcium 6.6 L (8.6-10.4) mg/dl Phosphorus (2.5-4.5) mg/dL Magnesium 1.6 (1.6-2.3) mg/dL Total Bilirubin (0.2-1.3) mg/dL AST (14-36) U/L ALT (9-52) U/L Alkaline Phosphatase (38-126) U/L Total Protein (6.3-8.3) g/dL Albumin (3.5-5.0) g/dL Globulin (2.2-3.9) gm/dL Albumin/Globulin Ratio (1.0-2.1) Cortisol AM Sample (4.46-22.7) ug/dL Laboratory Results - last 24 hr 06/20/16 06/20/16 06/21/16 14:40 14:57 06:36 WBC 13.5 H RBC 3.30 L Hgb 8.7 L Hct 28.6 L MCV 86.8 MCH 26.3 L MCHC 30.3 L RDW 22.3 H Plt Count 137 MPV 9.3 Neut % (Auto) 77.9 H Lymph % (Auto) 11.5 L [place] % (Auto) 8.8 Eos % (Auto) 1.7 Baso % (Auto) 0.1 Neut # 10.5 H Lymph # 1.5 [place] # 1.2 H Eos # 0.2 Baso # 0.0 Puncture Site pCO2 pO2 HCO3 ABG pH ABG Total CO2 ABG O2 Saturation ABG Base Excess ABG Hemoglobin ABG Carboxyhemoglobin POC ABG HHb (Measured) ABG Methemoglobin Oscar Test A-a O2 Difference Respiratory Index Hgb O2 Saturation FiO2 Inspiratory BiPAP Expiratory BiPAP Crit Value Called To Crit Value Called By Crit Value Read Back Blood Gas Notified Time Sodium 141 Potassium 3.1 L Chloride 110 H Carbon Dioxide 19 L Anion Gap 15 BUN 50 H Creatinine 1.8 H Est GFR ( Amer) 33 Est GFR (Non-Af Amer) 27 POC Glucose (mg/dL) Random Glucose 53 L Calcium 6.6 L Phosphorus Magnesium 1.6 Total Bilirubin AST ALT Alkaline Phosphatase Total Protein Albumin Globulin Albumin/Globulin Ratio Cortisol AM Sample 06/21/16 06/21/16 06/21/16 06:36 07:08 08:46 WBC RBC Hgb Hct MCV MCH MCHC RDW Plt Count MPV Neut % (Auto) Lymph % (Auto) [place] % (Auto) Eos % (Auto) Baso % (Auto) Neut # Lymph # [place] # Eos # Baso # Puncture Site pCO2 pO2 HCO3 ABG pH ABG Total CO2 ABG O2 Saturation ABG Base Excess ABG Hemoglobin ABG Carboxyhemoglobin POC ABG HHb (Measured) ABG Methemoglobin Oscar Test A-a O2 Difference Respiratory Index Hgb O2 Saturation FiO2 Inspiratory BiPAP Expiratory BiPAP Crit Value Called To Crit Value Called By Crit Value Read Back Blood Gas Notified Time Sodium 143 Potassium 3.7 Chloride 111 H Carbon Dioxide 19 L Anion Gap 17 BUN 50 H Creatinine 1.9 H Est GFR ( Amer) 31 Est GFR (Non-Af Amer) 26 POC Glucose (mg/dL) 43 L 42 L Random Glucose 38 L* D Calcium 6.5 L Phosphorus 5.1 H Magnesium 1.5 L Total Bilirubin 1.6 H AST 13 L ALT 18 Alkaline Phosphatase 86 Total Protein 4.7 L Albumin 2.3 L D Globulin 2.4 Albumin/Globulin Ratio 1.0 Cortisol AM Sample 16.2 06/21/16 06/21/16 09:18 11:32 WBC RBC Hgb Hct MCV MCH MCHC RDW Plt Count MPV Neut % (Auto) Lymph % (Auto) [place] % (Auto) Eos % (Auto) Baso % (Auto) Neut # Lymph # [place] # Eos # Baso # Puncture Site Rr pCO2 49 H pO2 109 H HCO3 17.5 L ABG pH 7.18 L* ABG Total CO2 19.8 L ABG O2 Saturation 99.4 H ABG Base Excess -9.6 L ABG Hemoglobin 8.4 L ABG Carboxyhemoglobin 1.5 POC ABG HHb (Measured) 0.6 ABG Methemoglobin 1.0 Oscar Test Pos A-a O2 Difference 115.0 Respiratory Index 1.1 Hgb O2 Saturation 96.9 FiO2 40.0 Inspiratory BiPAP 12 Expiratory BiPAP 6 Crit Value Called To Dr davina roblero Crit Value Called By Katharina prieto urban redevelopment specialist Crit Value Read Back Y Blood Gas Notified Time 925 Sodium Potassium Chloride Carbon Dioxide Anion Gap BUN Creatinine Est GFR ( Amer) Est GFR (Non-Af Amer) POC Glucose (mg/dL) 52 L Random Glucose Calcium Phosphorus Magnesium Total Bilirubin AST ALT Alkaline Phosphatase Total Protein Albumin Globulin Albumin/Globulin Ratio Cortisol AM Sample Review of Systems - Review of Systems Systems not reviewed;Unavailable: Altered Mental Status Assessment/Plan (1) UTI (urinary tract infection) Assessment and plan: 80 year old female with PMHx of CHF, COPD, HTN, Respiratory failure, recurrent UTIs. presented with dehydration, hypernatremia, acute on chronic respiratory failure, and a UTI. IR thoracentesis (06/09.) Intubated (06/10). Open thoracotomy, right chest tube placement (06/13). Neuro: Alert, following some commands. Precedex drip, titrating down. Pulm: patient was extubated on (06/20) to BiPAP, patient is becoming increasingly hypercarbic. CV: patient is off of pressors, but still has periods of hypotension. Hem: No acute issues Renal: Oliguria not improving despite continuous albumin drip, stopping diuresis. Endo: resistant hypoglycemia, started D10 W.checked random a.m. cortisol level, patient is not adrenally insufficient. GI: nothing by mouth while on BiPAP. patient has small bowel obstruction that is not resolving, neostigmine helped partially. ID: severe sepsis secondary to UTI. Proteus in urine, Acinetobacter in the sputum. Continue Tigecycline (Acinetobacter), Flagyl and colistin. ID - Dr. Cantrell DVT proph - heparin subcutaneous GI proph - Protonix marrufo for strict I/O's during acute illness Code status - DNR/DNI spoke with the patient's sister, she understands that her sister is not doing well and not improving. We discussed not reintubating and she agreed to this, so patient was made DNR/DNI. Patient appears to be failing clinically with worsening oliguria, worsening acute hypercarbic respiratory failure, small bowel obstruction and underlying multidrug resistant urinary tract infection. If patient does not improve will focus on making patient comfortable, this was agreed upon with the patient's sister. Crtical Care Time spent 35 minutes Multi-disciplinary rounds were performed with house staff, nursing, speech therapy, respiratory therapy, pharmacy and nutrition with integrated input from the primary team/attending and other consulting services. The documented time is cumulative and includes review of patient data/exams/labs/chart review and examination of the patient on rounds and throughout the day; time is exclusive of any procedures or teaching time. Current Visit: Yes Status: Acute Comment: Broad spectrum antibiotic Fine cultures
[2016-06-21 16:18] LABS: ABG ALLEN TEST POS; ARTERIAL BLOOD HGB O2 SAT 96.4 % (95.0-98.0); CARBOXYHEMOGLOBIN 1.3 % (0.5-1.5); DRAW SITE RRA; HHB 0.9 % (0.0-5.0); METHEMOGLOBIN 1.5 % (0.0-3.0)
--- NOTE | 2016-06-21 20:48 | CP.PCM.PN ---
Subjective - Date & Time of Evaluation Date of Evaluation: 06/21/16 Time of Evaluation: 20:48 - Subjective Subjective: afebrile, weak and drowsy ONBIPAP TACHYCARDIC,HYPOTENSIVE on pressors terminally sick, NGT - BILIOUS DRAINGE 1650CC/12HRS S/P LT. CHEST TUBE DRAINING SEROSANGUINEOUS DRAINAGE- 130CC s/p RT IJ CATHETER PLACED 06/11/16 S/P FOLEYS CHANGE 06/18/16. ROS. HEENT : N.head tilted to the left. OGT -DRAINING BILIOUS DRAINAGE Resp : No cough, wheezing ,pleuritic CP ,or hemoptysis LT. CT IN PLACE. Cardio : TACHYCARDIC GI : ABDOMEN SOFT, n/v ,diarrhea or GI bleeding . SOFTWARE QUALITY ASSURANCE ENGINEER : No headache, vertigo, focal deficit. Musculoskel : No joint swelling , Derm : No rash Psych : Normal affect. Ext : No swelling ,calf pain PE. Pt. is alert awake in no distress.ON VENTILATOR V.S As noted in the chart Head ,ear nose,throat and eyes : Normal. Neck : Supple with normal carotids. Lungs: RHONCHI B/L +VE LT CHEST TUBE IN PLACE Heart : S1 & S2 normal with S4. No murmur.TACHYCARDIC Abd : Soft , LESS DISTENDED BS +VE Neuro : Moves all ext. with no localized deficit. Ext : + EDEMA with intact pulses.Non tender calves Derm : No rashes or decubitus ulcer. LABS/RADIOLOGY: 06/21 wbc13.5 h/h 8.7/ 28.6 plt 137 06/20 WBC14.5 H/H 9.6/32.7-IMPROVING 06/20 CREAT 1.5/BUN 51 /4 CT ABD/PELVIS PO CONTRAST CT abdomen and pelvis with PO contrast (06/19/16) : B/l pleural effusions, consolidations. Wall thickening of proximal duodenum. Marked caliber change at distal duodenum with dilated small bowel loops distally. Obstruction not excluded. Large retained fecal materal. Cholelithiasis. Anasarca. Moderate abdominal and pelvic ascites (see full report). pleural fluid 06/16/16 FINDINGS NOTED -POST TRAUMATIC-HGIC,T.NJ <3.0, GLUCOSE N - LDH HIGH STOOL C. DIFFICILE NEGATIVE STOOL -VE LEUKOCYTES urine culture 06/18 GPC-p identification. bronchial washings +ve Acinetobacter Baumanni SPUTUM CULTURE+VE ACINETOBACTER BOUMANNI S - tYGACIL BLOOD CULTURES 06/13/16, 06/16/16 -VE .LFTS 06/17 N .. URINE CULTURE +VE PROTEUS MIRABILIS -MDR ASSESSMENT/PLAN : IMPRESSION; - S/P RESPIRATORY FAILURE/ EXTUBATED 06/20/16 - VAP/HAP -[id number] -S/P LEFT-SIDED THORACENTESIS/ chest tube 06/13 - SEPTIC SHOCK /HYPOTENSION-MULTIFACTORIAL - [id number]-RESISTANT PROTEUS MIRABILIS -CHF - ?/SBO VS ILEUS -DM. -HX MANISH- MASTOIDITIS/CHOLESTEATOMA. PLAN; DC IV VANCOMYCIN.06/13 ON IV tYGACIL 100 MG LOADING DOSE FOLLOWED BY 50 EVERY 12 HOURLY.06/14 ON IV Colistin 150 mg every 24 hourly. 06/16/16 ONIV FLAGYL 500MG IV Q8HRLY ADDED 06/17/16 MONITOR RENAL FUNCTION CLOSELY. F/U URINE CULTURES pulmonary toilet. PT DNR/DNI. NOTED . PROGNOSIS GUARDED. Objective - Vital Signs/Intake and Output Vital Signs (last 24 hours): Temp Pulse Resp BP Pulse Ox 95.8 F L 95 H 16 74/28 L 100 06/21/16 16:00 06/21/16 20:35 06/21/16 19:00 06/21/16 19:00 06/21/16 19:00 Intake and Output: 06/21/16 06/22/16 18:59 06:59 Intake Total 1455 154 Output Total 285 20 Balance 1170 134 - Medications Medications: Current Medications Calcium/Vitamin D (Oyster Shell Calcium/Vitamin D 500 Mg-200 Iu) 1 tab PO DAILY [facility] Last Admin: 06/21/16 10:52 Dose: Not Given Heparin Sodium (Porcine) (Heparin) 5,000 units SC Q12 [facility] Last Admin: 06/21/16 10:51 Dose: 5,000 units Levetiracetam 500 mg/ Sodium (Chloride) 105 mls @ 420 mls/hr IVPB Q12H [facility] Last Admin: 06/21/16 17:32 Dose: 420 mls/hr Tigecycline 50 mg/ Sodium (Chloride) 100 mls @ 100 mls/hr IVPB Q12H [facility] Last Admin: 06/21/16 14:56 Dose: 100 mls/hr Colistimethate Sodium 150 mg/ (Sodium Chloride) 100 mls @ 200 mls/hr IV Q24H [facility] Last Admin: 06/21/16 00:30 Dose: 200 mls/hr Metronidazole (Flagyl) 500 mg in 100 mls @ 100 mls/hr IVPB Q8H [facility] Last Admin: 06/21/16 16:25 Dose: 100 mls/hr Albumin Human (Albutein 5% 500 Ml) 500 mls @ 50 mls/hr IVPB Q10H [facility] Stop: 06/22/16 15:44 Last Admin: 06/21/16 20:13 Dose: 50 mls/hr Dextrose (Dextrose 10% In Water) 1,000 mls @ 60 mls/hr IV .[id number] [facility] Last Admin: 06/21/16 11:40 Dose: 60 mls/hr Norepinephrine Bitartrate 4 mg (/ Dextrose) 254 mls @ 15.24 mls/hr IV .[id number] PRN; Protocol; 4 MCG/MIN PRN Reason: TITRATE PER MD ORDER Last Titration: 06/21/16 19:05 Dose: 8 mcg/min, 30.48 mls/hr Pantoprazole Sodium (Protonix Inj) 40 mg IVP DAILY [facility] Last Admin: 06/21/16 10:51 Dose: 40 mg - Labs Labs: 06/21/16 06:36 06/21/16 06:36 PT 14.4 SECONDS (9.7-12.2) H 06/13/16 06:28 INR 1.3 06/13/16 06:28 APTT 34 SECONDS (21-34) 06/13/16 06:28 Assessment and Plan (1) UTI (urinary tract infection) Status: Acute (2) Dehydration Status: Acute (3) Acute respiratory failure Status: Acute (4) COPD (chronic obstructive pulmonary disease) Status: Acute (5) Hypotension Status: Acute (6) Acute onset sepsis Status: Acute
--- NOTE | 2016-06-21 21:37 | CP.CCUPN ---
CCU Subjective - Physician Review Events Since Last Encounter (Free Text): 06/21/16 21:35 Mrs. Pardo went into respiratory failure this afternoon. Dr. Hdz had a conversation with Althea Kaur and decided to make her DNI as well. Towards the evening she required levophed, no on 20 mcg/mn. I spoke to her sister and POA, Althea Kaur and decided to stop bpap and levophed, she stated she discussed to her other sister and "decided to let her go", she agree to medications to make her comfortable, but at this time she looks in no distress. This conversation was witnessed by Jennifer Perez. CCU Objective - Vital Signs / Intake & Output Vital Signs (Last 4 hours): Vital Signs Pulse Resp BP Pulse Ox 06/21/16 20:35 95 H 06/21/16 19:00 93 H 16 74/28 L 100 06/21/16 18:09 105 H 20 90/29 L 98 06/21/16 18:00 105 H 16 90/29 L 100 Intake and Output (Last 8hrs): Intake & Output 06/21/16 06/21/16 06/21/16 06:59 14:59 22:59 Intake Total 651 690 5213.3 Output Total 190 205 165 Balance 510 595 950.3 Weight 134 lb 11.2 oz Intake: IV 14 Intake, IV Amount 912 586 3468.3 Right Medial Port 300 Right Proximal Port 400 400 410 Internal Jugular right distal 300 400 391.3 Output: Chest Tube Drainage 0 5 Left Lateral Chest 0 5 Urine 190 205 160 Urethral (Gonzalez) 190 205 160 - Physical Exam Head: Positive for: Atraumatic, Normocephalic Pupils: Positive for: PERRL Extroacular Muscles: Positive for: EOMI Conjunctiva: Positive for: Normal Mouth: Positive for: Moist Mucous Membranes Respiratory/Chest: Positive for: Good Air Exchange, Decreased Breath Sounds Cardiovascular: Positive for: Tachycardic Upper Extremity: Positive for: Normal Inspection, NORMAL PULSES. Negative for: Cyanosis, Edema Lower Extremity: Positive for: Normal Inspection, NORMAL PULSES. Negative for: Edema, CALF TENDERNESS Neurological: Positive for: GCS=15, CN II-XII Intact Skin: Positive for: Warm, Dry Psychiatric: Positive for: Alert, Oriented x 3 - Medications Active Medications: Active Medications Generic Name Dose Route Start Last Admin Trade Name Freq PRN Reason Stop Dose Admin Calcium/Vitamin D 1 tab 06/18/16 10:00 06/21/16 10:52 Oyster Shell Calcium/Vitamin D 500 Mg-200 Iu PO Not Given DAILY SHARIF Heparin Sodium (Porcine) 5,000 units 06/17/16 10:00 06/21/16 10:51 Heparin SC 5,000 units Q12 SHARIF Administration Levetiracetam 500 mg/ Sodium 105 mls @ 420 mls/hr 06/07/16 18:30 06/21/16 17: 32 Chloride IVPB 420 mls/hr Q12H SHARIF Administration Tigecycline 50 mg/ Sodium 100 mls @ 100 mls/hr 06/15/16 02:00 06/21/16 14:56 Chloride IVPB 100 mls/hr Q12H SHARIF Administration Colistimethate Sodium 150 mg/ 100 mls @ 200 mls/hr 06/17/16 00:00 06/21/16 00 :30 Sodium Chloride IV 200 mls/hr Q24H SHARIF Administration Metronidazole 500 mg in 100 mls @ 100 mls/hr 06/18/16 00:00 06/21/16 16:25 Flagyl IVPB 100 mls/hr Q8H SHARIF Administration Albumin Human 500 mls @ 50 mls/hr 06/20/16 13:45 06/21/16 20:13 Albutein 5% 500 Ml IVPB 06/22/16 15:44 50 mls/hr Q10H SHARIF Administration Dextrose 1,000 mls @ 60 mls/hr 06/21/16 11:36 06/21/16 11:40 Dextrose 10% In Water IV 60 mls/hr .[id number] SHARIF Administration Pantoprazole Sodium 40 mg 06/05/16 10:00 06/21/16 10:51 Protonix Inj IVP 40 mg DAILY SHARIF Administration - Patient Studies Lab Studies: Microbiology Studies 06/16/16 22:40 Blood Culture - Preliminary Blood-Thru Central Line NO GROWTH AFTER 4 DAYS 06/16/16 23:45 Blood Culture - Preliminary Blood-Thru Central Line NO GROWTH AFTER 4 DAYS Lab Studies 06/21/16 06/21/16 06/21/16 Range/Units 18:15 16:10 13:12 WBC (4.8-10.8) K/uL RBC (3.80-5.20) Mil/uL Hgb (11.0-16.0) g/dL Hct (34.0-47.0) % MCV (81.0-99.0) fL MCH (27.0-31.0) pg MCHC (33.0-37.0) g/dL RDW (11.5-14.5) % Plt Count (130-400) K/uL MPV (7.2-11.7) fL Neut % (Auto) (50.0-75.0) % Lymph % (Auto) (20.0-40.0) % [place] % (Auto) (0.0-10.0) % Eos % (Auto) (0.0-4.0) % Baso % (Auto) (0.0-2.0) % Neut # (1.8-7.0) K/uL Lymph # (1.0-4.3) K/uL [place] # (0.0-0.8) K/uL Eos # (0.0-0.7) K/uL Baso # (0.0-0.2) K/uL Puncture Site Rra pCO2 47 H (35-45) mm/Hg pO2 118 H (80-100) mm/Hg HCO3 18.7 L (21-28) mmol/L ABG pH 7.22 L (7.35-7.45) ABG Total CO2 20.6 L (22-28) mmol/L ABG O2 Saturation 99.1 H (95-98) % ABG Base Excess -8.0 L (-2.0-3.0) mmol/L ABG Hemoglobin 7.8 L (11.7-17.4) g/dL ABG Carboxyhemoglobin 1.3 (0.5-1.5) % POC ABG HHb (Measured) 0.9 (0.0-5.0) % ABG Methemoglobin 1.5 (0.0-3.0) % Oscar Test Pos A-a O2 Difference 108.0 mm/Hg Respiratory Index 0.9 Hgb O2 Saturation 96.4 (95.0-98.0) % FiO2 40.0 % Inspiratory BiPAP 16 Expiratory BiPAP 8 Crit Value Called To Crit Value Called By Crit Value Read Back Blood Gas Notified Time Sodium (132-148) mmol/L Potassium (3.6-5.2) mmol/L Chloride (98-107) mmol/L Carbon Dioxide (22-30) mmol/L Anion Gap (10-20) BUN (7-17) mg/dL Creatinine (0.7-1.2) MG/DL Est GFR ( Amer) Est GFR (Non-Af Amer) POC Glucose (mg/dL) 92 106 (65-110) mg/dL Random Glucose (65-105) mg/dL Calcium (8.6-10.4) mg/dl Phosphorus (2.5-4.5) mg/dL Magnesium (1.6-2.3) mg/dL Total Bilirubin (0.2-1.3) mg/dL AST (14-36) U/L ALT (9-52) U/L Alkaline Phosphatase (38-126) U/L Total Protein (6.3-8.3) g/dL Albumin (3.5-5.0) g/dL Globulin (2.2-3.9) gm/dL Albumin/Globulin Ratio (1.0-2.1) Cortisol AM Sample (4.46-22.7) ug/dL 06/21/16 06/21/16 06/21/16 Range/Units 11:32 09:18 08:46 WBC (4.8-10.8) K/uL RBC (3.80-5.20) Mil/uL Hgb (11.0-16.0) g/dL Hct (34.0-47.0) % MCV (81.0-99.0) fL MCH (27.0-31.0) pg MCHC (33.0-37.0) g/dL RDW (11.5-14.5) % Plt Count (130-400) K/uL MPV (7.2-11.7) fL Neut % (Auto) (50.0-75.0) % Lymph % (Auto) (20.0-40.0) % [place] % (Auto) (0.0-10.0) % Eos % (Auto) (0.0-4.0) % Baso % (Auto) (0.0-2.0) % Neut # (1.8-7.0) K/uL Lymph # (1.0-4.3) K/uL [place] # (0.0-0.8) K/uL Eos # (0.0-0.7) K/uL Baso # (0.0-0.2) K/uL Puncture Site Rr pCO2 49 H (35-45) mm/Hg pO2 109 H (80-100) mm/Hg HCO3 17.5 L (21-28) mmol/L ABG pH 7.18 L* (7.35-7.45) ABG Total CO2 19.8 L (22-28) mmol/L ABG O2 Saturation 99.4 H (95-98) % ABG Base Excess -9.6 L (-2.0-3.0) mmol/L ABG Hemoglobin 8.4 L (11.7-17.4) g/dL ABG Carboxyhemoglobin 1.5 (0.5-1.5) % POC ABG HHb (Measured) 0.6 (0.0-5.0) % ABG Methemoglobin 1.0 (0.0-3.0) % Oscar Test Pos A-a O2 Difference 115.0 mm/Hg Respiratory Index 1.1 Hgb O2 Saturation 96.9 (95.0-98.0) % FiO2 40.0 % Inspiratory BiPAP 12 Expiratory BiPAP 6 Crit Value Called To Dr davina roblero Crit Value Called By Katharina prieto para educator Crit Value Read Back Y Blood Gas Notified Time 925 Sodium (132-148) mmol/L Potassium (3.6-5.2) mmol/L Chloride (98-107) mmol/L Carbon Dioxide (22-30) mmol/L Anion Gap (10-20) BUN (7-17) mg/dL Creatinine (0.7-1.2) MG/DL Est GFR ( Amer) Est GFR (Non-Af Amer) POC Glucose (mg/dL) 52 L 42 L (65-110) mg/dL Random Glucose (65-105) mg/dL Calcium (8.6-10.4) mg/dl Phosphorus (2.5-4.5) mg/dL Magnesium (1.6-2.3) mg/dL Total Bilirubin (0.2-1.3) mg/dL AST (14-36) U/L ALT (9-52) U/L Alkaline Phosphatase (38-126) U/L Total Protein (6.3-8.3) g/dL Albumin (3.5-5.0) g/dL Globulin (2.2-3.9) gm/dL Albumin/Globulin Ratio (1.0-2.1) Cortisol AM Sample (4.46-22.7) ug/dL 06/21/16 06/21/16 06/21/16 Range/Units 07:08 06:36 06:36 WBC 13.5 H (4.8-10.8) K/uL RBC 3.30 L (3.80-5.20) Mil/uL Hgb 8.7 L (11.0-16.0) g/dL Hct 28.6 L (34.0-47.0) % MCV 86.8 (81.0-99.0) fL MCH 26.3 L (27.0-31.0) pg MCHC 30.3 L (33.0-37.0) g/dL RDW 22.3 H (11.5-14.5) % Plt Count 137 (130-400) K/uL MPV 9.3 (7.2-11.7) fL Neut % (Auto) 77.9 H (50.0-75.0) % Lymph % (Auto) 11.5 L (20.0-40.0) % [place] % (Auto) 8.8 (0.0-10.0) % Eos % (Auto) 1.7 (0.0-4.0) % Baso % (Auto) 0.1 (0.0-2.0) % Neut # 10.5 H (1.8-7.0) K/uL Lymph # 1.5 (1.0-4.3) K/uL [place] # 1.2 H (0.0-0.8) K/uL Eos # 0.2 (0.0-0.7) K/uL Baso # 0.0 (0.0-0.2) K/uL Puncture Site pCO2 (35-45) mm/Hg pO2 (80-100) mm/Hg HCO3 (21-28) mmol/L ABG pH (7.35-7.45) ABG Total CO2 (22-28) mmol/L ABG O2 Saturation (95-98) % ABG Base Excess (-2.0-3.0) mmol/L ABG Hemoglobin (11.7-17.4) g/dL ABG Carboxyhemoglobin (0.5-1.5) % POC ABG HHb (Measured) (0.0-5.0) % ABG Methemoglobin (0.0-3.0) % Oscar Test A-a O2 Difference mm/Hg Respiratory Index Hgb O2 Saturation (95.0-98.0) % FiO2 % Inspiratory BiPAP Expiratory BiPAP Crit Value Called To Crit Value Called By Crit Value Read Back Blood Gas Notified Time Sodium 143 (132-148) mmol/L Potassium 3.7 (3.6-5.2) mmol/L Chloride 111 H (98-107) mmol/L Carbon Dioxide 19 L (22-30) mmol/L Anion Gap 17 (10-20) BUN 50 H (7-17) mg/dL Creatinine 1.9 H (0.7-1.2) MG/DL Est GFR ( Amer) 31 Est GFR (Non-Af Amer) 26 POC Glucose (mg/dL) 43 L (65-110) mg/dL Random Glucose 38 L* D (65-105) mg/dL Calcium 6.5 L (8.6-10.4) mg/dl Phosphorus 5.1 H (2.5-4.5) mg/dL Magnesium 1.5 L (1.6-2.3) mg/dL Total Bilirubin 1.6 H (0.2-1.3) mg/dL AST 13 L (14-36) U/L ALT 18 (9-52) U/L Alkaline Phosphatase 86 (38-126) U/L Total Protein 4.7 L (6.3-8.3) g/dL Albumin 2.3 L D (3.5-5.0) g/dL Globulin 2.4 (2.2-3.9) gm/dL Albumin/Globulin Ratio 1.0 (1.0-2.1) Cortisol AM Sample 16.2 (4.46-22.7) ug/dL Laboratory Results - last 24 hr 06/21/16 06/21/16 06/21/16 06:36 06:36 07:08 WBC 13.5 H RBC 3.30 L Hgb 8.7 L Hct 28.6 L MCV 86.8 MCH 26.3 L MCHC 30.3 L RDW 22.3 H Plt Count 137 MPV 9.3 Neut % (Auto) 77.9 H Lymph % (Auto) 11.5 L [place] % (Auto) 8.8 Eos % (Auto) 1.7 Baso % (Auto) 0.1 Neut # 10.5 H Lymph # 1.5 [place] # 1.2 H Eos # 0.2 Baso # 0.0 Puncture Site pCO2 pO2 HCO3 ABG pH ABG Total CO2 ABG O2 Saturation ABG Base Excess ABG Hemoglobin ABG Carboxyhemoglobin POC ABG HHb (Measured) ABG Methemoglobin Oscar Test A-a O2 Difference Respiratory Index Hgb O2 Saturation FiO2 Inspiratory BiPAP Expiratory BiPAP Crit Value Called To Crit Value Called By Crit Value Read Back Blood Gas Notified Time Sodium 143 Potassium 3.7 Chloride 111 H Carbon Dioxide 19 L Anion Gap 17 BUN 50 H Creatinine 1.9 H Est GFR ( Amer) 31 Est GFR (Non-Af Amer) 26 POC Glucose (mg/dL) 43 L Random Glucose 38 L* D Calcium 6.5 L Phosphorus 5.1 H Magnesium 1.5 L Total Bilirubin 1.6 H AST 13 L ALT 18 Alkaline Phosphatase 86 Total Protein 4.7 L Albumin 2.3 L D Globulin 2.4 Albumin/Globulin Ratio 1.0 Cortisol AM Sample 16.2 06/21/16 06/21/16 06/21/16 08:46 09:18 11:32 WBC RBC Hgb Hct MCV MCH MCHC RDW Plt Count MPV Neut % (Auto) Lymph % (Auto) [place] % (Auto) Eos % (Auto) Baso % (Auto) Neut # Lymph # [place] # Eos # Baso # Puncture Site Rr pCO2 49 H pO2 109 H HCO3 17.5 L ABG pH 7.18 L* ABG Total CO2 19.8 L ABG O2 Saturation 99.4 H ABG Base Excess -9.6 L ABG Hemoglobin 8.4 L ABG Carboxyhemoglobin 1.5 POC ABG HHb (Measured) 0.6 ABG Methemoglobin 1.0 Oscar Test Pos A-a O2 Difference 115.0 Respiratory Index 1.1 Hgb O2 Saturation 96.9 FiO2 40.0 Inspiratory BiPAP 12 Expiratory BiPAP 6 Crit Value Called To Dr davina roblero Crit Value Called By Katharina prieto para educator Crit Value Read Back Y Blood Gas Notified Time 925 Sodium Potassium Chloride Carbon Dioxide Anion Gap BUN Creatinine Est GFR ( Amer) Est GFR (Non-Af Amer) POC Glucose (mg/dL) 42 L 52 L Random Glucose Calcium Phosphorus Magnesium Total Bilirubin AST ALT Alkaline Phosphatase Total Protein Albumin Globulin Albumin/Globulin Ratio Cortisol AM Sample 06/21/16 06/21/16 06/21/16 13:12 16:10 18:15 WBC RBC Hgb Hct MCV MCH MCHC RDW Plt Count MPV Neut % (Auto) Lymph % (Auto) [place] % (Auto) Eos % (Auto) Baso % (Auto) Neut # Lymph # [place] # Eos # Baso # Puncture Site Rra pCO2 47 H pO2 118 H HCO3 18.7 L ABG pH 7.22 L ABG Total CO2 20.6 L ABG O2 Saturation 99.1 H ABG Base Excess -8.0 L ABG Hemoglobin 7.8 L ABG Carboxyhemoglobin 1.3 POC ABG HHb (Measured) 0.9 ABG Methemoglobin 1.5 Oscar Test Pos A-a O2 Difference 108.0 Respiratory Index 0.9 Hgb O2 Saturation 96.4 FiO2 40.0 Inspiratory BiPAP 16 Expiratory BiPAP 8 Crit Value Called To Crit Value Called By Crit Value Read Back Blood Gas Notified Time Sodium Potassium Chloride Carbon Dioxide Anion Gap BUN Creatinine Est GFR ( Amer) Est GFR (Non-Af Amer) POC Glucose (mg/dL) 106 92 Random Glucose Calcium Phosphorus Magnesium Total Bilirubin AST ALT Alkaline Phosphatase Total Protein Albumin Globulin Albumin/Globulin Ratio Cortisol AM Sample
[2016-06-21] MEDS ORDERED: Morphine 4 MG/ML VIAL IVP PRN (23:06)
[2016-06-22] MEDS: metroNIDAZOLE IV 500 mg/100 ml 500 MG/100 ML BAG IVPB SCH (00:15)
[2016-06-22 00:33] VITALS: TEMP 97.4
--- NOTE | 2016-06-22 02:58 | CP.PCM.PN ---
Subjective - Date & Time of Evaluation Date of Evaluation: 06/22/16 Time of Evaluation: 02:46 - Subjective Subjective: Evaluated patient as informed by the nurse the patient stopped breathing, the telemonitor showed asystole, patient was unresponsive and no pulse felt by the nurse, the patient was DNR/DNI on comfort care. I came assessed patient confirmed above, pronounced patient at 2:20 am. Sister notified by nurse, PMD will be informed by the nurse. registered in [facility]. Objective - Vital Signs/Intake and Output Vital Signs (last 24 hours): Temp Pulse Resp BP Pulse Ox 97.4 F L 118 H 16 63/25 L 55 L 06/22/16 00:00 06/22/16 01:00 06/22/16 01:00 06/22/16 01:00 06/22/16 01:00 Intake and Output: 06/21/16 06/22/16 18:59 06:59 Intake Total 1455 1100.3 Output Total 285 115 Balance 1170 985.3 - Medications Medications: Current Medications Calcium/Vitamin D (Oyster Shell Calcium/Vitamin D 500 Mg-200 Iu) 1 tab PO DAILY [facility] Last Admin: 06/21/16 10:52 Dose: Not Given Heparin Sodium (Porcine) (Heparin) 5,000 units SC Q12 [facility] Last Admin: 06/21/16 22:14 Dose: 5,000 units Levetiracetam 500 mg/ Sodium (Chloride) 105 mls @ 420 mls/hr IVPB Q12H [facility] Last Admin: 06/21/16 17:32 Dose: 420 mls/hr Tigecycline 50 mg/ Sodium (Chloride) 100 mls @ 100 mls/hr IVPB Q12H [facility] Last Admin: 06/22/16 01:36 Dose: 100 mls/hr Colistimethate Sodium 150 mg/ (Sodium Chloride) 100 mls @ 200 mls/hr IV Q24H [facility] Last Admin: 06/22/16 00:13 Dose: 200 mls/hr Metronidazole (Flagyl) 500 mg in 100 mls @ 100 mls/hr IVPB Q8H [facility] Last Admin: 06/22/16 00:15 Dose: 100 mls/hr Albumin Human (Albutein 5% 500 Ml) 500 mls @ 50 mls/hr IVPB Q10H [facility] Stop: 06/22/16 15:44 Last Admin: 06/21/16 20:13 Dose: 50 mls/hr Dextrose (Dextrose 10% In Water) 1,000 mls @ 60 mls/hr IV .[id number] [facility] Last Admin: 06/21/16 11:40 Dose: 60 mls/hr Lorazepam (Ativan) 1 mg IVP Q1H PRN PRN Reason: Agitation Last Admin: 06/22/16 00:49 Dose: 1 mg Morphine Sulfate (Morphine) 6 mg IVP Q1H PRN PRN Reason: Agitation Last Admin: 06/22/16 00:49 Dose: 6 mg Pantoprazole Sodium (Protonix Inj) 40 mg IVP DAILY [facility] Last Admin: 06/21/16 10:51 Dose: 40 mg - Labs Labs: 06/21/16 06:36 06/21/16 06:36 PT 14.4 SECONDS (9.7-12.2) H 06/13/16 06:28 INR 1.3 06/13/16 06:28 APTT 34 SECONDS (21-34) 06/13/16 06:28
[2016-06-22 03:06] VITALS: BP 66/28; PULSE 61; RESP 14; O2SAT 20
--- NOTE | 2016-06-22 07:48 | CP.PCM.PN ---
Subjective - Date & Time of Evaluation Date of Evaluation: 06/21/16 Time of Evaluation: 10:22 - Subjective Subjective: Pt is DNR/DNI. spoke to manager highway, opt not to have any intervention, she is off MV, on BIPAP, weak and lethargic, not improving, PH is low in resp acidosis , terminally sick, resp distress is not improving Objective - Vital Signs/Intake and Output Vital Signs (last 24 hours): Temp Pulse Resp BP Pulse Ox 97.4 F L 61 14 66/28 L 20 L 06/22/16 00:00 06/22/16 02:00 06/22/16 02:00 06/22/16 02:00 06/22/16 02:00 Intake and Output: 06/22/16 06/22/16 06:59 18:59 Intake Total 1310.3 Output Total 125 Balance 1185.3 - Labs Labs: 06/21/16 06:36 06/21/16 06:36 PT 14.4 SECONDS (9.7-12.2) H 06/13/16 06:28 INR 1.3 06/13/16 06:28 APTT 34 SECONDS (21-34) 06/13/16 06:28 - Constitutional Appears: Cachectic, Chronically Ill - Head Exam Head Exam: ATRAUMATIC, NORMAL INSPECTION, NORMOCEPHALIC - ENT Exam ENT Exam: Mucous Membranes Dry - Respiratory Exam Respiratory Exam: Decreased Breath Sounds, Rales, Rhonchi - Cardiovascular Exam Cardiovascular Exam: Tachycardia, +S1, +S2 Assessment and Plan (1) UTI (urinary tract infection) Status: Acute (2) Dehydration Status: Acute (3) Hypotension Status: Acute (4) Acute onset sepsis Status: Acute (5) Respiratory failure Status: Acute (6) Hypertension Status: Acute (7) Pneumonia involving left lung Status: Acute (8) Pleural effusion Status: Acute
--- NOTE | 2016-06-22 07:49 | CP.PCM.DIS ---
Provider - Provider Date of Admission: 06/04/16 20:12 Attending physician: Jagjit Franz MD Time Spent in preparation of Discharge (in minutes): 30 Diagnosis - Discharge Diagnosis (1) UTI (urinary tract infection) Status: Acute (2) Dehydration Status: Acute (3) Hypotension Status: Acute (4) Acute onset sepsis Status: Acute (5) Respiratory failure Status: Acute (6) Hypertension Status: Acute (7) Pneumonia involving left lung Status: Acute (8) Pleural effusion Status: Acute Hospital Course - Lab Results Lab Results: Micro Results 06/16/16 22:40 Blood-Thru Central Line Blood Culture - Preliminary NO GROWTH AFTER 4 DAYS 06/16/16 23:45 Blood-Thru Central Line Blood Culture - Preliminary NO GROWTH AFTER 4 DAYS 06/18/16 19:00 Urine,Gonzalez Urine Culture - Preliminary Gram Positive Cocci 06/17/16 Unknown Stool Stool Culture - Final NO SALMONELLA, SHIGELLA OR CAMPYLOBACTER ISOLATED. 06/13/16 16:00 Chest Gram Stain - Final 06/13/16 16:00 Chest Anaerobic Culture - Final NO ANAEROBES ISOLATED. 06/13/16 16:00 Chest Wound Culture - Final No growth. 06/13/16 10:34 Other: Please Indicate Mycobacterial Culture - Preliminary 06/13/16 14:20 Bronchial Washings Bronchial Culture - Final Acinetobacter Baumannii 06/11/16 20:27 Trachasp Gram Stain - Final 06/11/16 20:27 Trachasp Sputum Culture - Final Acinetobacter Baumannii 06/06/16 16:30 Blood Blood Culture - Final NO GROWTH AFTER 5 DAYS 06/06/16 16:30 Blood Gram Stain - Final TEST NOT PERFORMED 06/06/16 17:00 Blood Blood Culture - Final NO GROWTH AFTER 5 DAYS 06/06/16 17:00 Blood Gram Stain - Final TEST NOT PERFORMED 06/10/16 04:00 Urine,Catheterized Urine Culture - Final No Growth (<1,000 CFU/ML) 06/04/16 Unknown Urine,Catheterized Urine Culture - Final Proteus Mirabilis 06/04/16 21:37 Nose MRSA Culture (Admit) - Final MRSA NOT DETECTED Most Recent Lab Values WBC 13.5 K/uL (4.8-10.8) H 06/21/16 06:36 RBC 3.30 Mil/uL (3.80-5.20) L 06/21/16 06:36 Hgb 8.7 g/dL (11.0-16.0) L 06/21/16 06:36 Hct 28.6 % (34.0-47.0) L 06/21/16 06:36 MCV 86.8 fL (81.0-99.0) 06/21/16 06:36 MCH 26.3 pg (27.0-31.0) L 06/21/16 06:36 MCHC 30.3 g/dL (33.0-37.0) L 06/21/16 06:36 RDW 22.3 % (11.5-14.5) H 06/21/16 06:36 Plt Count 137 K/uL (130-400) 06/21/16 06:36 MPV 9.3 fL (7.2-11.7) 06/21/16 06:36 Neut % (Auto) 77.9 % (50.0-75.0) H 06/21/16 06:36 Lymph % (Auto) 11.5 % (20.0-40.0) L 06/21/16 06:36 [place]oup % (Auto) 8.8 % (0.0-10.0) 06/21/16 06:36 Eos % (Auto) 1.7 % (0.0-4.0) 06/21/16 06:36 Baso % (Auto) 0.1 % (0.0-2.0) 06/21/16 06:36 Neut # 10.5 K/uL (1.8-7.0) H 06/21/16 06:36 Lymph # 1.5 K/uL (1.0-4.3) 06/21/16 06:36 Troup # 1.2 K/uL (0.0-0.8) H 06/21/16 06:36 Eos # 0.2 K/uL (0.0-0.7) 06/21/16 06:36 Baso # 0.0 K/uL (0.0-0.2) 06/21/16 06:36 Neutrophils % (Manual) 88 % (50-75) H 06/20/16 06:43 Band Neutrophils % 1 % (0-2) 06/20/16 06:43 Lymphocytes % (Manual) 6 % (20-40) L 06/20/16 06:43 Monocytes % (Manual) 3 % (0-10) 06/20/16 06:43 Eosinophils % (Manual) 2 % (0-4) 06/20/16 06:43 Basophils % (Manual) 2 % (0-2) 06/05/16 04:41 Metamyelocytes % 1 % (0-0) H 06/17/16 16:47 Myelocytes % 1 % (0-0) H 06/11/16 20:54 Platelet Estimate Normal (NORMAL) 06/20/16 06:43 Large Platelets Present 06/15/16 06:53 Hypochromasia (manual) Slight 06/20/16 06:43 Poikilocytosis (manual Slight 06/20/16 06:43 Anisocytosis (manual) Slight 06/20/16 06:43 Microcytosis (manual) Slight 06/19/16 06:24 Macrocytosis (manual) Slight 06/19/16 06:24 Target Cells Slight 06/19/16 06:24 Tear Drop Cells Slight 06/20/16 06:43 Ovalocytes Slight 06/20/16 06:43 Jesus Cells Slight 06/20/16 06:43 Schistocytes Slight 06/15/16 06:53 PT 14.4 SECONDS (9.7-12.2) H 06/13/16 06:28 INR 1.3 06/13/16 06:28 APTT 34 SECONDS (21-34) 06/13/16 06:28 Puncture Site Rra 06/21/16 16:10 pCO2 47 mm/Hg (35-45) H 06/21/16 16:10 pO2 118 mm/Hg (80-100) H 06/21/16 16:10 HCO3 18.7 mmol/L (21-28) L 06/21/16 16:10 ABG pH 7.22 (7.35-7.45) L 06/21/16 16:10 ABG Total CO2 20.6 mmol/L (22-28) L 06/21/16 16:10 ABG O2 Saturation 99.1 % (95-98) H 06/21/16 16:10 ABG Base Excess -8.0 mmol/L (-2.0-3.0) L 06/21/16 16:10 ABG Hemoglobin 7.8 g/dL (11.7-17.4) L 06/21/16 16:10 ABG Carboxyhemoglobin 1.3 % (0.5-1.5) 06/21/16 16:10 POC ABG HHb (Measured) 0.9 % (0.0-5.0) 06/21/16 16:10 ABG Methemoglobin 1.5 % (0.0-3.0) 06/21/16 16:10 Oscar Test Pos 06/21/16 16:10 ABG Potassium 4.9 mmol/L (3.6-5.2) 06/11/16 15:40 VBG pH 7.26 (7.32-7.43) L 06/04/16 20:40 VBG pCO2 80 mmHg (40-60) H* 06/04/16 20:40 VBG HCO3 27.7 mmol/L 06/04/16 20:40 VBG Total CO2 38.4 mmol/L (22-28) H 06/04/16 20:40 VBG O2 Sat (Calc) 40.7 % (40-65) 06/04/16 20:40 VBG Base Excess 5.9 mmol/L (0.0-2.0) H 06/04/16 20:40 VBG Potassium 3.9 mmol/L (3.6-5.2) 06/04/16 20:40 A-a O2 Difference 108.0 mm/Hg 06/21/16 16:10 Respiratory Index 0.9 06/21/16 16:10 Hgb O2 Saturation 96.4 % (95.0-98.0) 06/21/16 16:10 Sodium 143.0 mmol/l (132-148) 06/11/16 15:40 Chloride 116.0 mmol/L (98-107) H 06/11/16 15:40 Glucose 104 mg/dl (65-105) 06/11/16 15:40 Lactate 0.6 mmol/L (0.7-2.1) L 06/11/16 15:40 Liter Flow 3.0 06/06/16 05:33 Mechanical Rate 14 06/20/16 05:29 FiO2 40.0 % 06/21/16 16:10 Tidal Volume 500 06/20/16 05:29 PEEP 5 06/20/16 05:29 Inspiratory BiPAP 16 06/21/16 16:10 Expiratory BiPAP 8 06/21/16 16:10 Crit Value Called To Dr davina roblero 06/21/16 09:18 Crit Value Called By Katharina prieto stage set designer 06/21/16 09:18 Crit Value Read Back Y 06/21/16 09:18 Blood Gas Notified Time 925 06/21/16 09:18 Sodium 143 mmol/L (132-148) 06/21/16 06:36 Potassium 3.7 mmol/L (3.6-5.2) 06/21/16 06:36 Chloride 111 mmol/L (98-107) H 06/21/16 06:36 Carbon Dioxide 19 mmol/L (22-30) L 06/21/16 06:36 Anion Gap 17 (10-20) 06/21/16 06:36 BUN 50 mg/dL (7-17) H 06/21/16 06:36 Creatinine 1.9 MG/DL (0.7-1.2) H 06/21/16 06:36 Est GFR ( Amer) 31 06/21/16 06:36 Est GFR (Non-Af Amer) 26 06/21/16 06:36 POC Glucose (mg/dL) 92 mg/dL (65-110) 06/21/16 18:15 Random Glucose 38 mg/dL (65-105) L* D 06/21/16 06:36 Calcium 6.5 mg/dl (8.6-10.4) L 06/21/16 06:36 Phosphorus 5.1 mg/dL (2.5-4.5) H 06/21/16 06:36 Magnesium 1.5 mg/dL (1.6-2.3) L 06/21/16 06:36 Total Bilirubin 1.6 mg/dL (0.2-1.3) H 06/21/16 06:36 AST 13 U/L (14-36) L 06/21/16 06:36 ALT 18 U/L (9-52) 06/21/16 06:36 Alkaline Phosphatase 86 U/L (38-126) 06/21/16 06:36 Lactate Dehydrogenase 651 U/L (313-618) H 06/13/16 16:20 NT-Pro-B Natriuret Pep 1450 pg/mL (0-900) H 06/06/16 17:54 Total Protein 4.7 g/dL (6.3-8.3) L 06/21/16 06:36 Albumin 2.3 g/dL (3.5-5.0) L D 06/21/16 06:36 Globulin 2.4 gm/dL (2.2-3.9) 06/21/16 06:36 Albumin/Globulin Ratio 1.0 (1.0-2.1) 06/21/16 06:36 Amylase < 30 U/L (30-110) L 06/13/16 16:20 Procalcitonin 0.15 NG/ML (0.19-0.49) L 06/13/16 09:15 Cortisol AM Sample 16.2 ug/dL (4.46-22.7) 06/21/16 06:36 Arterial Blood Potassium 4.9 mmol/L (3.6-5.2) 06/11/16 15:40 Venous Blood Potassium 3.9 mmol/L (3.6-5.2) 06/04/16 20:40 Urine Color Yellow (YELLOW) 06/18/16 18:27 Urine Clarity Hazy (Clear) 06/18/16 18:27 Urine pH 5.0 (5.0-8.0) 06/18/16 18:27 Ur Specific Adrian 1.009 (1.003-1.030) 06/18/16 18:27 Urine Protein 2+ mg/dL (NEGATIVE) H 06/18/16 18:27 Urine Glucose (UA) 1+ mg/dL (Normal) 06/18/16 18:27 Urine Ketones Trace mg/dL (NEGATIVE) 06/18/16 18:27 Urine Blood 1+ (NEGATIVE) H 06/18/16 18:27 Urine Nitrate Negative (NEGATIVE) 06/18/16 18:27 Urine Bilirubin Negative (NEGATIVE) 06/18/16 18:27 Urine Urobilinogen 2.0 mg/dL (0.2-1.0) H 06/18/16 18:27 Ur Leukocyte Esterase 1+ Dominique/uL (Negative) H 06/18/16 18:27 Urine WBC (Auto) 16 /hpf (0-5) H 06/18/16 18:27 Urine RBC (Auto) 6 /hpf (0-3) H 06/18/16 18:27 Urine WBC Clumps (Auto) Many /hpf (NONE) H 06/04/16 19:02 Ur Squamous Epith Cells 4 /hpf (0-5) 06/18/16 18:27 Ur Renal Epithelial Cell < 1 /hpf (0-3) 06/04/16 19:02 Amorphous Sediment Rare /ul (<OCC) H 06/18/16 18:27 Urine Bacteria Mod (<OCC) H 06/18/16 18:27 Hyaline Casts 6-10 /lpf (0-2) H 06/10/16 02:45 Ur Random Creatinine 54.4 mg/dL 06/20/16 11:21 Ur Random Sodium 49 mmol/L 06/20/16 11:21 Fluid Source Pleural 06/16/16 10:12 Fluid Appearance Bloody (CLEAR) 06/16/16 10:12 Fluid WBC 979.0 /mm3 (0.0-300.0) H 06/16/16 10:12 Fluid RBC 886514.0 /mm3 (0.0-0.0) H 06/16/16 10:12 Fluid Tot Cell Count TEST NOT PERFORMED 06/16/16 10:12 Fluid Neutrophils 50.0 % (0-0) H 06/16/16 10:12 Fluid Lymphocytes 48.0 % (0-0) H 06/16/16 10:12 Fld Monocyte/Macrophag 2 % (0-0) H 06/16/16 10:12 Fluid Comment TEST NOT PERFORMED 06/16/16 10:12 Pleural Total Protein <3.0 g/dL 06/13/16 16:27 Pleural LDH 2223 U/L 06/13/16 16:27 Pleural Glucose 144 mg/dL 06/13/16 16:27 Pleural Amylase 11 U/L 06/13/16 16:27 Stool Leukocytes, Qual Negative (NEGATIVE) 06/17/16 Unknown Vancomycin Trough 25.3 ug/mL (5.0-10.0) H 06/13/16 06:26 Random Vancomycin 24.52 ug/mL 06/14/16 19:56 C. difficile Ag & Toxin Negative (NEGATIVE) 06/17/16 Unknown Blood Type O NEGATIVE 06/13/16 16:20 Antibody Screen Negative 06/13/16 16:20 - Hospital Course Hospital Course: patient was unresponsive and no pulse felt by the nurse, the patient was DNR/ DNI on comfort care. pronounced patient at 2:20 am. Sister notified by nurse, . registered in [facility]. Discharge Exam - Head Exam Head Exam: ATRAUMATIC, NORMAL INSPECTION, NORMOCEPHALIC Discharge Plan - Follow Up Plan Condition: CRITICAL Disposition: WITH WITHOUT AUTOPSY
--- NOTE | 2016-06-23 11:51 | US ---
PROCEDURE: Date of procedure: 06/09/2016 Procedure: 1. Ultrasound-guided left thoracentesis, CPT 09061 Medications: 6cc 1% Lidocaine HISTORY: Left pleural effusion, shortness of breath TECHNIQUE: Following informed consent ,the Patients' left chest was marked. Procedure time-out was called, and the patient was placed in the sitting position and limited ultrasound showed a large left effusion. The patient's left back was prepped and draped in the usual sterile fashion. After the skin was anesthetized with lidocaine, a drainage catheter was advanced under ultrasound guidance into the pleural space. Ultrasound-guided thoracentesis was performed. A total of 600 cubic centimeters of straw-colored fluid removed without complication. A Xeroform dressing was applied. IMPRESSION: Ultrasound guided left thoracentesis. There were no immediate complications.
== END 2016-06-22 02:25 | DRG 853 ==
LOC: C.ER 16:42 → C.9I 20:12
PROVIDERS: ADMIT Internal Medicine; ATTEND Internal Medicine
PROC: 5A09557 Assistance with Respiratory Ventilation, Greater than 96 Consecutive Hours, Continuous Positive Airway Pressure (ICD-10-PCS; 2016-06-04)
PROC: 0W9B3ZZ Drainage of Left Pleural Cavity, Percutaneous Approach (ICD-10-PCS; 2016-06-09)
PROC: BB4BZZZ Ultrasonography of Pleura (ICD-10-PCS; 2016-06-09)
PROC: 5A1955Z Respiratory Ventilation, Greater than 96 Consecutive Hours (ICD-10-PCS; principal; 2016-06-11)
PROC: 0BH17EZ Insertion of Endotracheal Airway into Trachea, Via Natural or Artificial Opening (ICD-10-PCS; 2016-06-11)
PROC: 05HM33Z Insertion of Infusion Device into Right Internal Jugular Vein, Percutaneous Approach (ICD-10-PCS; 2016-06-11)
PROC: 0BNP0ZZ Release Left Pleura, Open Approach (ICD-10-PCS; 2016-06-13)
PROC: 0B9J8ZX Drainage of Left Lower Lung Lobe, Via Natural or Artificial Opening Endoscopic, Diagnostic (ICD-10-PCS; 2016-06-13)
PROC: 0W9B00Z Drainage of Left Pleural Cavity with Drainage Device, Open Approach (ICD-10-PCS; 2016-06-13)
DX: A41.1 Sepsis due to other specified staphylococcus (principal); J96.00 Acute respiratory failure, unspecified whether with hypoxia or hypercapnia; J18.9 Pneumonia, unspecified organism; J90 Pleural effusion, not elsewhere classified; E86.0 Dehydration; I13.0 Hypertensive heart and chronic kidney disease with heart failure and stage 1 through stage 4 chronic kidney disease, or unspecified chronic kidney disease; I50.32 Chronic diastolic (congestive) heart failure; J44.9 Chronic obstructive pulmonary disease, unspecified; L89.151 Pressure ulcer of sacral region, stage 1; G35 Multiple sclerosis; N39.0 Urinary tract infection, site not specified; R65.20 Severe sepsis without septic shock; B96.4 Proteus (mirabilis) (morganii) as the cause of diseases classified elsewhere; N18.9 Chronic kidney disease, unspecified; K56.60 Unspecified intestinal obstruction; M19.90 Unspecified osteoarthritis, unspecified site; G40.909 Epilepsy, unspecified, not intractable, without status epilepticus; R41.82 Altered mental status, unspecified; K21.9 Gastro-esophageal reflux disease without esophagitis; R00.0 Tachycardia, unspecified; Z66 Do not resuscitate; Z51.5 Encounter for palliative care; R19.7 Diarrhea, unspecified; Z87.01 Personal history of pneumonia (recurrent)